=== PATIENT | male | born 1950 | race Caucasian/White ===

== ENCOUNTER 2022-09-09 10:23 | Outpatient (OUT) | payer MEDICARE, SELFPAY ==
--- NOTE | 2022-09-09 11:03 | PM.CN ---
Consult Note: HPI Data of Consult Patient: known to practice within the last 3 years Consult date: 09/09/22 Requesting Physician: FRED MEEKS NP Primary Care Provider: SAHIL TOPETE Consult Narrative Reason for consult: low back pain Narrative: He is here for f/u of low back pain and second dx MBB lumbar done 08/24/22. He had 100% relief for several hours after procedure along with increased fx. He would like to proceed with RFA of same area. Procedure discussed in detail. No other concerns. No new sensorimotor sx or new bowel or bladder issues. cc:: CC: FRED MEEKS NP Review of Systems ROS Status of ROS 10 or more systems reviewed and unremarkable except as noted in history and below Musculoskeletal Reports: back pain Exam Constitutional Documenting provider has reviewed patient's vital signs: yes Common normals: no apparent distress, oriented x3, healthy appearing, alert and well nourished General appearance: cooperative, comfortable and well developed Orientation/consciousness: Yes awake, Yes oriented to person, Yes oriented to place and Yes oriented to time HENMT Common normals: normocephalic, external nose normal and moist oral mucous membranes Respiratory Common normals: normal respiratory effort, no retractions and no use of accessory muscles Effort & inspection: able to speak in complete sentences Back & Pelvis Lumbar spine/lower back: normal to inspection, pain with ROM, paraspinal muscle tenderness, straight leg raise negative bilaterally and other soft tissue findings (facet loading positive left.) Extremity Common normals: normal to inspection, full ROM, normal capillary refill and no pedal edema Other: bilat LE muscle strength 5/5 with intact sensation. No radiculopathy Assessment and Plan Assessment and Plan (1) Lumbar spondylosis: Plan thermal RFA to left lumbar L4/5 L5/S1 under fluoroscopy. valium pre-procedure
== END 2022-09-09 10:24 ==
LOC: PM 10:24
PROVIDERS: PCP Internal Medicine; Visit Provider Nurse Practitioner
DX: M47.816 Spondylosis without myelopathy or radiculopathy, lumbar region (principal)
CPT/HCPCS: G0463

== ENCOUNTER 2022-09-28 07:44 | Day surgery (SDC) | payer MEDICARE, SELFPAY ==
--- NOTE | 2022-09-28 08:27 | P.ON_ITS ---
Date of procedure: 09/28/22 Procedure: Left Lumbar 4/5 & 5/Sacral 1 Radiofrequency ablation PreOp diagnosis: pain secondary to include lumbar spondylosis Postop diagnosis same Under fluoroscopic guidance Rhizotomy was created using radio frequency ablation at 80?C for 90 seconds 1 to 2 lesions created at each site. Post lesioning injection of 2 mL each of 0.25% Marcaine and 2% lidocaine with Depo-Medrol 40mg. 0.5 to 1 mL injected at each site Anesthesia: local 2% lidocaine Timeout process compliant After informed consent obtained.Patient brought to the procedure room placed in the prone position skin overlying the area was prepped and draped in a sterile fashion using betadine. 25 gauge needle was used to create a skin wheal over each of the targeted areas utilizing 2% lidocaine. A rhizotomy needle with a 10 mm active tip was inserted over each of the anesthetized areas and directed towards each of the medial branches accomplished under fluoroscopic guidance. after encountering the same we had positive sensory stimulation, negative motor stimulation was noted. lesions were then created. Post lesioning, steroid s olution was injected needles removed. Patient was transferred to recovery room in stable condition to be discharged home after meeting criteria. Surgeon: Hannah Rendon
[2022-09-28 08:39] VITALS: BP 125/78; PULSE 61; RESP 16; TEMP 37.1; O2SAT 98
[2022-09-28 08:44] LABS: Glucometer 177 mg/dL (74-106)
[2022-09-28 09:22] VITALS: BP 200/82; BP 208/88; PULSE 46; PULSE 57; RESP 20; O2SAT 94; O2SAT 96
[2022-09-28] MEDS: METHYLPREDNISOLONE ACETATE 40 MG/ML VIAL INJ (09:23)
[2022-09-28] MEDS: LIDOCAINE HCL 2% 400 MG/20 ML MDV 8 ML INJ (09:24)
[2022-09-28] MEDS: BUPIVACAINE HCL 0.25% PF 25 MG/10 ML VIAL 4 ML INJ (09:25)
== END 2022-09-28 09:41 | disposition home or self-care (01) ==
LOC: SURGOUT 07:47
PROVIDERS: PCP Internal Medicine; Visit Provider Anesthesiology Pain Medicine
DX: M47.816 Spondylosis without myelopathy or radiculopathy, lumbar region (principal)
CPT/HCPCS: 36415; 64635; 64636; 82948; J1030

== ENCOUNTER 2023-11-01 11:15 | Outpatient (OUT) | payer MEDICARE, SELFPAY ==
--- NOTE | 2023-11-01 | CONS_ITS ---
PROCEDURE DATE: 11/01/2023 PROCEDURE: Left erector spinae trigger point injection. PREOPERATIVE DIAGNOSIS: Pain secondary to myalgia/spasm left erector spinae muscle, as well as left sided hip pain. POSTOPERATIVE DIAGNOSIS: Pain secondary to myalgia/spasm left erector spinae muscle, as well as left sided hip pain. INDICATION: Patient had a positive left sided FABERE sign and pain with weight bearing maneuvers in the groin area. Otherwise, had a non-focal sensorimotor exam of the lower extremities. SOLUTION USED FOR INJECTION: 2 mL of 2% lidocaine, 2 mL of 0.25% Marcaine and 10 mg of Kenalog, total of 5 mL, and 5 mL used for the injection at the site. IMMEDIATE COMPLICATION: None. PROCEDURE: After informed consent was obtained from the patient, placed in the flexed forward position. Skin overlying the area was prepped with alcohol. A 25 gauge 1 ?? needle was inserted into the substance of the left erector spinae muscle, at the level of the L4 spinous process, approximately 2.5 cm from midline on the left side. Needle was advanced until there was a mild twitch response. No indication of intravascular or intraneural needle tip placement. 5 mL of solution was injected in divided doses. No indication of intravascular or intraneural injection was noted. Post procedure, the patient reports a marked reduction in pain symptoms. SHELLY
== END 2023-11-01 11:16 | disposition home or self-care (01) ==
LOC: PM 11:15
PROVIDERS: PCP Internal Medicine; Visit Provider Anesthesiology Pain Medicine
DX: M25.552 Pain in left hip (principal); M79.18 Myalgia, other site
CPT/HCPCS: 20552; J0665; J3301

== ENCOUNTER 2023-11-08 13:02 | Outpatient (OUT) | payer MEDICARE, SELFPAY ==
--- NOTE | 2023-11-08 | XR_ITS ---
The [address] [address] Patient Name: TAMMY HEADLEY MRN: [id number] date: 1950 Sex: M Assigned Patient Location: [facility] Current Patient Location: Accession/Order Number: [id number] Exam Date: 11/08/2023 13:17 Report Date: 11/09/2023 14:05 At the request of: NATALIE BAILEY Procedure: XR hip LT min 2V EXAM: Left hip HISTORY: . LEFT HIP PAIN . COMPARISON: None. TECHNIQUE: 2 views FINDINGS: There is slight narrowing of the hip joint. Hypertrophic spurs are noted involving the femoral head as well as the acetabulum. No fracture or dislocation is noted. Surrounding soft tissues are unremarkable. 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 Electronically authenticated by: TAMMY OLIVO Date: 11/09/2023 14:05
== END 2023-11-08 13:03 | disposition home or self-care (01) ==
LOC: RAD 13:06
PROVIDERS: PCP Internal Medicine; Visit Provider Anesthesiology Pain Medicine
DX: M25.552 Pain in left hip (principal)
CPT/HCPCS: 73502

== ENCOUNTER 2024-01-24 11:35 | Outpatient (OUT) | payer MEDICARE, SELFPAY ==
--- OUTSIDE RECORDS SUMMARY | 2024-01-24 11:39 | XMS_ITS | CCD ---
Author Organization [facility] Care Team Providers Care Medical Doctor Md/Medical Director Name Role Phone KOJO MEDINA Primary Care Physician [phone] Update Needed Unavailable Unavailable Unavailable Unavailable EUGENIA Medina Primary Care Provider LETICIA Husain Emergency Provider DO Yves Garcia Admit Provider [phone] DO Yves Garcia Attending Provider [phone] MD Jakub Andrews Attending Provider MD Colin Dolan Other Provider [phone] Jakub Andrews Attending Unavailable Colin Dolan Consulting Unavail able Kojo Medina Primary Care Unavailable Yves Garcia Admitting Unavailabl e Karime Caraballo Unavailable LAKSHMIPATHY ., NARENDRANATH Consulting Anabella vailable DR KOJO MEDINA Primary Care Unavailable LAKSHMIPATHY ., NARENDRANATH Attending Anabella vailable LAKSHMIPATHY ., NARENDRANATH Admitting Anabella vailable LAKSHMIPATHY ., NARENDRANATH Consulting Anabella vailable DR KOJO MEDINA Primary Care Unavailable LAKSHMIPATHY ., NARENDRANATH Attending Anabella vailable LAKSHMIPATHY ., NARENDRANATH Admitting Anabella vailable LAKSHMIPATHY ., NARENDRANATH Consulting Anabella vailable DR KOJO MEDINA Primary Care Unavailable LAKSHMIPATHY ., NARENDRANATH Attending Anabella vailable LAKSHMIPATHY ., NARENDRANATH Admitting Anabella vailable HALKER . FRED Consulting Unavailable LAKSHMIPATHY ., NARENDRANATH Consulting Anabella vailable ADAM, DR BAXTER Primary Care Unavailable LAKSHMIPATHY ., NATALIE Attending Anabella vailable LAKSHMIPATHY ., NATALIE Admitting Anabella vailable SWEENEY ., DR AGUILAR Lipscomb Consulting Unavailable ADAM, DR BAXTER Primary Care Unavailable SWEENEY ., DR AGUILAR Lipscomb Attending Unavailable SWEENEY ., DR AGUILAR Lipscomb Admitting Unavailable MEDINA, DR BAXTER Consulting Unavailable ADAM, DR BAXTER Primary Care Unavailable MEDINA, DR BAXTER Attending Unavailable MEDINA, DR BAXTER Admitting Unavailable ZIEBER, JOYA R Consulting Unavailable ZIEBER, JOYA R Consulting Unavailable MEDINA, DR BAXTER Primary Care Unavailable LAKSHMIPATHY ., NATALIE Attending Anabella vailable LAKSHMIPATHY ., NATALIE Admitting Anabella vailable LAKSHMIPATHY ., NATLAIE Consulting Anabella vailable WEST, DR TAMMY Martinez Consulting Unavailable ADAM, DR BAXTER Primary Care Unavailable LAKSHMIPATHY ., NATALIE Attending Anabella vailable LAKSHMIPATHY ., NATALIE Admitting Anabella vailable LAKSHMIPATHY ., NATALIE Consulting Anabella vailable ADAM, DR BAXTER Consulting Unavailable ADAM, DR BAXTER Primary Care Unavailable MEDINA, DR BAXTER Attending Unavailable MEDINA, DR BAXTER Admitting Unavailable MEDINA, DR BAXTER Consulting Unavailable MEDINA, DR BAXTER Primary Care Unavailable MEDINA, DR BAXTER Attending Unavailable MEDINA, DR BAXTER Admitting Unavailable CLEMENTINA, JOYA R Consulting Unavailable LAKSHMIPATHY ., NATALIE Consulting Anabella vailable ADAM, DR BAXTER Primary Care Unavailable LAKSHMIPATHY ., NATALIE Attending Anabella vailable LAKSHMIPATHY ., NATALIE Admitting Anabella vailable Kojo Medina Unavailable Adam BELLO, Dr. Kojo Dolan Primary Care Anabella vailable Colin Dolan Attending Unavailable Adam II, Dr. Kojo Dolan Primary Care Anabella vailable Colin Dolan Attending Unavailable Colin Dolan Referring Unavailable Adam II, Dr. Kojo Dolan Primary Care Anabella vailable Colin Dolan Attending Unavailable Colin Dolan Referring Unavailable Kojo Medina MD Primary Care Provider [phone] SERA PARIKH Attending Unavail able KOJO MEDINA Referring Unavailable KOJO MEDINA Primary Care Unavailable SERA PARIKH Admitting Unavail able SERA PARIKH Attending Unavail able KOJO MEDINA Primary Care Unavailable Rajeev IBRAHIM Attending Unavailable KOJO MEDINA Attending Unavailable ELIZABETH DANGELO Attending Unavailable KOJO MEDINA Referring Unavailable KOJO MEDINA Attending Unavailable KOJO MEDINA Attending Unavailable KOJO MEDINA Attending Unavailable COLIN DOLAN Attending Unavailable KOJO MEDINA Primary Care Unavailable RO CADENA Attending Unavailable COLIN DOLAN Referring Unavailable KOJO MEDINA Primary Care Unavailable Allergies Allergy Classification Reported Allergen(s) Allergy Type Date of Onset Reaction(s) Facility (4 sources) metFORMIN; Translations: [METFORMIN HCL] Drug Allergy 3 Diarrhea [facility] Work Phone: (4 sources) Animal Dander; Translations: [ANIMAL DANDER] Propensity to adverse reactions 3 Shortness of breath, Itching, Rash [facility] (1 source) Horses; Translations: [Horses] Propensity to adverse reactions (disorder) [facility] Medications Current Medications Medication Drug Class(es) Dates Sig (Normalized) Sig (Original) amLODIPine 10 mg oral tablet (10 sources) Dihydropyridine Calcium Channel Ofelia Start: 01-13-2024 End: 01-12-2025 take 1 tablet by mouth once daily amLODIPine (Norvasc) 10 mg tablet Indications: Benign essential hypertension Take 1 tablet (10 mg) by mouth once daily. 90 tablet 3 01/13/2024 01/12/2025 Active Start: 02-16-2023 End: 01-13-2024 take 1 tablet by mouth once daily amLODIPine (Norvasc) 5 mg tablet Take 1 tablet (5 mg) by mouth once daily. 02/16/2023 01/13/2024 Discontinued (Dose adjustment) Start: 03-21-2022 take 5 mg by mouth once daily Amlodipine Active 5 MG PO Daily March 21, 2022 12:00am aspirin 81 mg oral tablet (10 sources) Platelet Aggregation Inhibitor, Nonsteroidal Anti-inflammatory Drug Start: 06-13-2019 End: 01-13-2024 aspirin 81 mg capsule Take by mouth once daily. 06/13/2019 01/13/2024 Discontinued (Therapy completed) Aspirin EC 81 MG TBEC TAKE 1 TABLET DAILY. Quantity: 0 Refills: 0 Ordered: 08-Sep-2022 DO Active Baby Aspirin Act ghanshyam atorvastatin 40 mg oral tablet (12 sources) HMG-CoA Reductase Inhibitor Start: 03-21-2022 End: 03-24-2023 take 40 mg by mouth once daily Atorvastatin Active 40 MG PO Daily March 21, 2022 12:00am Start: 06-13-2019 atorvastatin O ral, Daily, Refills(s) 0 Start Date: 06/13/19 Status: Ordered baclofen 10 mg oral tablet (2 sources) gamma-Aminobutyric Acid-ergic Agonist take 1 tablet by mouth every twelve hours Baclofen 10 MG 1 tablet as needed Orally Twice a day Active carvedilol 6.25 mg oral tablet (12 sources) alpha-Adrenergic Ofelia, beta-Adrenergic Ofelia Start: 01-13-20 24 End: 01-13-20 25 take 1 tablet by mouth twice daily carvedilol (Coreg) 6.25 mg tablet Indications: Benign essential hypertension Take 1 tablet (6.25 mg) by mouth 2 times daily (morning and late afternoon). 01/13/2024 01/12/2025 Active Start: 10-10-2023 End: 01-13-2024 take 2 tablets by mouth twice daily carvedilol (Coreg) 6.25 mg tablet Indications: Bradycardia Take 2 tablets (12.5 mg) by mouth 2 times daily (morning and late afternoon). 360 tablet 3 10/10/2023 01/13/2024 Discontinued (Dose adjustment) Start: 03-21-2022 take 12.5 mg by mout h twice daily Carvedilol Active 12.5 MG PO Twice daily March 21, 2022 12:00am Start: 06-13-2019 carvedilol Ora l, Refills(s) 0 Start Date: 06/13/19 Status: Ordered Start: 02-08-2017 take 1 tablet by yenni th twice daily at mealtime carvedilol (Coreg) 25 mg tablet Take 1 tablet (25 mg) by mouth 2 times a day with meals. 0 02/08/2017 Active cholecalciferol 0.025 mg oral capsule (2 sources) Vitamin D take 1 capsule by mouth once daily cholecalciferol (Vitamin D3) 25 MCG (1000 UT) capsule Take 1 capsule (25 mcg) by mouth once daily. Active cyclobenzaprine hydrochloride 10 mg oral tablet (2 sources) Muscle Relaxant Start: 2022 End: 2023 take 1 tablet by mouth every eight hours as needed cyclobenzaprine (Flexeril) 10 mg tablet Take 1 tablet (10 mg) by mouth every 8 hours if needed for muscle spasms. 01/20/2023 01/13/2024 Discontinued (Therapy completed) doxycycline monohydrate 100 mg oral capsule (2 sources) Tetracycline-class Drug Start: 2020 take 1 capsule by mouth every twelve hours 0.85 ml exenatide 2.35 mg/ml auto-injector (1 source) GLP-1 Receptor Agonist Start: 2023 Bydureon BCise 2 mg/0.85 mL auto-injector Inject 1 Syringe under the skin every 7 days. 11/14/2023 Active hydroCHLOROthiazide 25 mg / triamterene 37.5 mg oral tablet (9 sources) Potassium-sparing Diuretic, Thiazide Diuretic Start: 2021 take 1 tablet by mouth once daily Triamterene-Hydrochlo rothiazid Active 1 TAB PO Daily March 21, 2022 12:00am ibuprofen 200 mg oral tablet (2 sources) Nonsteroidal Anti-inflammatory Drug take 2 tablets by mouth every six hours as needed ibuprofen 200 mg tablet Take 2 tablets (400 mg) by mouth every 6 hours if needed for mild pain (1 - 3). Active take 1 tablet by yenni th every six hours as needed ibuprofen 200 mg tablet Take 1 tablet (2 00 mg) by mouth every 6 hours if needed for mild pain (1 - 3). 0 Active 3 ml insulin aspart protamine, human 70 unt/ml / insulin aspart, human 30 unt/ml pen injector (1 source) Insulin Analog Start: 03-21-2022 Insulin Asp Pr t-Insulin Aspart (Novolog Mix 70-30flexpen U-100) 100 unit/mL (70-30) Insulin Pen Active 65 UNIT SUBCUT Twice daily March 21, 2022 12:00am NovoLog (3 sources) Insulin Analog Start: 06-13-2019 NovoLog SubCut aneous, TIDAC, Refills(s) 0 Start Date: 06/13/19 Status: Ordered insulin isophane, human 70 unt/ml / insulin, regular, human 30 unt/ml injectable suspension (7 sources) Insulin insulin NPH and regular human (NovoLIN 70/30 U-100 Insulin) 100 unit/mL (70-30) injection Inject 65 Units under the skin 2 times a day before meals. Active NovoLIN 70/30 (7 0-30) 100 UNIT/ML as directed Subcutaneous Active 3 ml liraglutide 6 mg/ml pen injector (10 sources) GLP-1 Receptor Agonist Start: 03-21-2022 Liraglutide (Victoza 2-Jules) 0.6 mg/0.1 mL (18 mg/3 mL) pen injector Active 12 MG SUBCUT Daily March 21, 2022 12:00am Start: 06-13-2019 inject 1 mg by subcu taneous injection once daily Victoza mg, SubCutaneous, Daily, Refills(s) 0 Start Date: 06/13/19 Status: Ordered inject 1.8 mg by sub cutaneous injection once daily Victoza 18 MG/3ML Subcutaneous Solution INJECT 1.8 MG SUBCUTANEOUSLY EVERY DAY Quantity: 0 Refills: 0 Ordered: 17-Mar-2022 DO Active lisinopril 40 mg oral tablet (8 sources) Angiotensin Converting Enzyme Inhibitor Start: 03-21-2022 take 40 mg by mouth once daily Lisinopril Active 40 MG PO Daily March 21, 2022 12:00am Start: 06-13-2019 lisinopril Ora l, Daily, Refills(s) 0 Start Date: 06/13/19 Status: Ordered metFORMIN hydrochloride 1000 mg oral tablet (7 sources) Biguanide Start: 03-21-2022 take 1000 mg by mouth twice daily Metformin Active 1000 MG PO Twice daily March 21, 2022 12:00am Start: 06-13-2019 metformin Oral , Refills(s) 0 Start Date: 06/13/19 Status: Ordered take 1 tablet by yenni th every twenty-four hours metFORMIN HCl 1000 MG 1 tablet with a meal Orally Once a day Active Multiple Vitamins Tab (3 sources) Start: 06-13-2019 take 1 tablet by mouth once daily Multiple Vitamins Tab Oral, Daily, Refill(s) 0 Start Date: 06/13/19 Status: Ordered multivitamin tablet (2 sources) take 1 tablet by mouth once daily multivitamin tablet Take 1 tablet by mouth once daily. Active take 1 tablet by mouth once renay y multivitamin tablet Take 1 tablet by mouth once daily. 0 Active mupirocin 0.02 mg/mg topical ointment (2 sources) RNA Synthetase Inhibitor Antibacterial Start: 07-28-2020 Ozempic 1 mg/dose (4 mg/3 mL) pen injector (2 sources) Start: 03-10-2023 End: 01-13-2024 inject 1 mg by subcutaneous injection every week Ozempic 1 mg/dose (4 mg/3 mL) pen injector Inject 1 mg under the skin 1 (one) time per week. Tuesday03/10/2023 01/13/2024 Discontinued (Therapy completed) Start: 03-10-2023 inject 1 mg by subcu taneous injection every week Ozempic 1 mg/dose (4 mg/3 mL) pen injector Inject 1 mg under the skin 1 (one) time per week. Tuesday03/10/2023 Active spironolactone 25 mg oral tablet (9 sources) Aldosterone Antagonist Start: 11-14-2023 take 1 tablet by mouth once daily spironolactone (Aldactone) 25 mg tablet Indications: Benign essential hypertension Take 1 tablet by mouth once daily 90 tablet 3 11/14/2023 Active Start: 03-05-2023 take 1 tablet by yenni th once daily spironolactone (Aldactone) 25 mg tablet Take 1 tablet (25 mg) by mouth once daily. 0 03/05/2023 Active Start: 03-17-2022 take 1 tablet by yenni th once daily Spironolactone 25 MG Oral Tablet TAKE 1 TABLET DAILY. Quantity: 90 Refills: 3 Ordered: 08-Sep-2022 Colin Dolan MD Start : 17-Mar-2022 Active traMADol hydrochloride 50 mg oral tablet (1 source) Opioid Agonist Start: 03-22-2023 End: 03-25-2023 take 1 tablet by mouth every eight hours for pain traMADol (Ultram) 50 mg tablet Indications: Carpal tunnel syndrome, right upper limb Take 1 tablet (50 mg) by mouth every 8 hours if needed for severe pain (7 - 10) for up to 3 days. 5 tablet 0 03/22/2023 03/25/2023 Active zonisamide 100 mg oral capsule (2 sources) Anti-epileptic Agent take 1 capsule by mouth every twenty-four hours Zonisamide 100 MG 1 capsule Orally Once a day Active Problems Active Problems Problem Classification Problem Date Documented Date Episodic/Chronic Cardiac dysrhythmias (1 source) AV junctional rhythm; Translations: [Other specified cardiac arrhythmias] Onset: 01-13-2024 01-13-2024 Chronic Cardiac dysrhythmias (4 sources) Bradycardia, unspecified; Translations: [Sinus bradycardia] Onset: 01-13-2024 Episodic Diabetes mellitus without complication (11 sources) Diabetes mellitus; Translations: [Diabetes mellitus without mention of complication, type II or unspecified type, not stated as uncontrolled] Onset: 03-21-2022 06-13-2019 Chronic Disorders of lipid metabolism (7 sources) Hyperlipidemia; Translations: [Other and unspecified hyperlipidemia] Onset: 06-10-2023 Chronic Essential hypertension (15 sources) Hypertensive disorder; Translations: [Benign essential hypertension] Onset: 06-25-2008 06-13-2019 Chronic Genitourinary symptoms and ill-defined conditions (3 sources) Microscopic hematuria 06-13-2019 Episodic Hyperplasia of prostate (4 sources) Benign prostatic hypertrophy with outflow obstruction; Translations: [Benign prostatic hyperplasia with lower urinary tract symptoms] Onset: 07-10-2021 Chronic Nonspecific chest pain (5 sources) Atypical chest pain; Translations: [Other chest pain] Onset: 03-21-2022 03-21-2022 Episodic Osteoarthritis (3 sources) Arthritis 06-13-2019 Chronic Other aftercare (1 source) retirement (current) use of insulin; 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] Onset: 07-22-2022 Episodic Other connective tissue disease (1 source) Disorder of ligament, vertebrae Episodic Other connective tissue disease (1 source) Other muscle spasm; Translations: [OTHER MUSCLE SPASM] Onset: 07-17-2022 Episodic Other nervous system disorders (1 source) Other chronic pain; Translations: [OTHER CHRONIC PAIN] Onset: 06-21-2022 Chronic Other nervous system disorders (5 sources) Carpal tunnel syndrome of right wrist; Translations: [Carpal tunnel syndrome, right upper limb] Onset: 03-21-2023 03-21-2023 Chronic Other nervous system disorders (2 sources) Carpal tunnel syndrome, right upper limb; Translations: [Carpal tunnel syndrome, right upper limb] Onset: 03-21-2023 Chronic Other non-traumatic joint disorders (4 sources) Pain in left hip; Translations: [PAIN IN LEFT HIP] Onset: 07-08-2022 Episodic Other nutritional; endocrine; and metabolic disorders (6 sources) Body mass index 40+ - severely obese; Translations: [Morbid obesity] Onset: 01-13-2024 01-13-2024 Chronic Other nutritional; endocrine; and metabolic disorders (3 sources) Body mass index (BMI) 45.0-49.9, adult; Translations: [Body mass index (BMI) 45.0-49.9, adult (Multi)] Onset: 01-13-2024 Chronic Other nutritional; endocrine; and metabolic disorders (1 source) Obesity, unspecified; Translations: [OBESITY UNSPECIFIED] Onset: 05-08-2022 Chronic Residual codes; unclassified (3 sources) H/O: anticoagulant therapy 06-13-2019 Episodic Residual codes; unclassified (3 sources) History of chest pain; Translations: [Personal history of other specified diseases] Episodic Residual codes; unclassified (3 sources) H/O: respiratory disease; Translations: [Personal history of other diseases of respiratory system] Episodic Residual codes; unclassified (1 source) Other specified postprocedural states Episodic Screening and history of mental health and substance abuse codes (8 sources) Ex-smoker; Translations: [Personal history of tobacco use] Onset: 01-13-2024 Episodic Comment on above: quit smoking 20+year s ago; Spondylosis; intervertebral disc disorders; other back problems (13 sources) Degeneration of lumbar intervertebral disc; Translations: [Other intervertebral disc degeneration, lumbar region] Onset: 05-08-2022 Chronic Spondylosis; intervertebral disc disorders; other back problems (6 sources) Radiculopathy, lumbar region; Translations: [Spinal stenosis, lumbar region without neurogenic claudication] Onset: 07-02-2022 Episodic Unclassified (3 sources) LOW BACK PAIN, UNSPECIFIED; Translations: [LOW BACK PAIN, UNSPECIFIED] Onset: 05-08-2022 Unclassified (3 sources) COUGH, UNSPECIFIED; Translations: [COUGH, UNSPECIFIED] Onset: 10-21-2021 Past or Other Problems Problem Classification Problem Date Documented Da te Episodic/Chronic Unclassified (1 source) LOW BACK PAIN, UNSPECIFIED; Translations: [LOW BACK PAIN, UNSPECIFIED] Onset: 05-04-2022 Unclassified (1 source) COUGH, UNSPECIFIED; Translations: [COUGH, UNSPECIFIED] Onset: 10-19-2021 Unclassified (1 source) Onset: 10-10-2023 10-10-2023 Results Test Name Value Interpretation Reference Range Facility ECG 12 [place] 01-13-2024 Junctional rhythm wi th retrograde [facility] Work Phone: Physician Orderon 07-26-2023 Physician Order [id number] Normal [facility] Office Visit (Cardiology)on 09-08-2022 Follow-up visit Diagnoses/Problems Assessed Hyperlipidemia (272.4) (E78.5) Morbid obesity with BMI of 45.0-49.9, adult (278.01,V85.42) (E66.01,Z68.42) Diabetes mellitus (250.00) (E11.9) Benign essential hypertension (401.1) (I10) Former smoker (V15.82) (Z87.891) quit smoking 20+years ago Orders Benign essential hypertension Renew: Spironolactone 25 MG Oral Tablet; TAKE 1 TABLET DAILY Hyperlipidemia Renew: Atorvastatin Calcium 40 MG Oral Tablet (Lipitor); TAKE 1 TABLET AT BEDTIME Morbid obesity with BMI of 45.0-49.9, adult Healthy Weight Tips; Status:Complete - Retrospective Authorization; Done: 08Sep2022 Some eating tips that can help you lose weight.; Status:Complete - Retrospective Authorization; Done: 08Sep2022 SocHx: Former smoker Tobacco Use Screening; Status:Complete; Done: 08Sep2022 Patient Instructions Please bring all medicines, vitamins, and herbal supplements with you when you come to the office. Prescriptions will not be filled unless you are compliant with your follow up appointments or have a follow up appointment scheduled as per instruction of your physician. Refills should be requested at the time of your visit. . Follow up in 1 year. Chief Complaint TAMMY WU is being seen for a 6 month follow-up of. History of Present Illness Patient returns in follow-up of problems as noted. He is done well. Management of cardiac risk factors including his hypertension diabetes and hyperlipidemia are discussed and reviewed and control appears adequate and appropriate. I did advocate the merits of diet and weight loss and its favorable impact on diabetes and hypertension. Surgical History Problems History of Achilles tenotomy History of Colonoscopy 04Apr2017 History of Hip replacement History of Knee replacement History of Lower back surgery History of Rotator cuff repair Past Medical History Problems History of chest pain (V13.89) (Z87.898) History of dyspnea (V12.69) (Z87.898) Current Meds Medication NameInstruction amLODIPine Besylate 5 MG Oral TabletTake 1 tablet daily Aspirin EC 81 MG TBECTAKE 1 TABLET DAILY. Atorvastatin Calcium 40 MG Oral TabletTAKE 1 TABLET AT BEDTIME. Carvedilol 25 MG Oral TabletTAKE 1 TABLET TWICE DAILY. NovoLIN 70/30 PenFill (70-30) 100 UNIT/ML SUSPUSE DIRECTED. Spironolactone 25 MG Oral TabletTAKE 1 TABLET DAILY. Triamterene-HCTZ 37.5-25 MG Oral TabletTAKE 1 TABLET DAILY. Victoza 18 MG/3ML Subcutaneous SolutionINJECT 1.8 MG SUBCUTANEOUSLY EVERY DAY Allergies Medication No Known Drug Allergies Recorded By: Sharee De Leon; 04/10/2021 3:40:56 PM Social History Problems Consumes alcohol occasionally (V49.89) (Z78.9) 2-3 drinks a month Daily caffeine consumption, 1 serving a day Former smoker (V15.82) (Z87.891) quit smoking 20+years ago No illicit drug use Review of Systems Constitutional: not feeling tired. Eyes: no eyesight problems. ENT: no hearing loss and no nosebleeds. Cardiovascular: no intermittent leg claudication and as noted in HPI. Respiratory: no chronic cough and no shortness of breath. Gastrointestinal: no change in bowel habits and no blood in stools. Genitourinary: no urinary frequency and no hematuria. Skin: no skin rashes. Neurological: no seizures and no frequent falls. Psychiatric: no depression and not suicidal. All other systems have been reviewed and are negative for complaint. Vitals Vital Signs Recorded: 08Sep2022 10:06AM Heart Rate40, R Radial [id number], RUE, Sitting Spccinjfr25, RUE, Sitting Height5 ft 7 in Dprgjm487 lb BMI Sunfchsidb85.52 kg/m2 BSA Calculated2.39 Tobacco Useb) No PHQ-2 #1. Over the last 2 weeks have you felt down, depressed or hopeless? (If yes, answer PHQ-9 below)No PHQ-2 #2. Over the last 2 weeks have you felt little interest or pleasure in doing things? (If yes, answer PHQ-9 below)No Falls Screening (Age 18+)a) No falls within the last year Physical Exam Constitutional: alert and in no acute distress. Eyes: no erythema, swelling or discharge from the eye . Neck: neck is supple, symmetric, trachea midline, no masses and no thyromegaly . Pulmonary: no increased work of breathing or signs of respiratory distress and lungs clear to auscultation. Cardiovascular: carotid pulses 2+ bilaterally with no bruit , JVP was normal, no thrills , regular rhythm, normal S1 and S2, no murmurs , pedal pulses 2+ bilaterally and no edema . Abdomen: abdomen non-tender, no masses and no hepatomegaly . Skin: skin warm and dry, normal skin turgor . Psychiatric judgment and insight is normal and oriented to person, place and time . Signatures Electronically signed by : Colin Dolan MD; Sep 08 2022 5:13PM EST (Author) Normal [employer] Tobacco Screening.on 023 Adult depression screening assessment No [facility] [place] [place] 600 DO Work Phone: Fall risk assessment a) No falls within the last year [facility] lk 600 DO Work Phone: Tobacco use status [facility] b) No [facility] 600 DO Work Phone: PROF CHEM 8 (BAS METB)on Anion gap [Moles/Vol] 19.1 mmol/L Normal [facility] Comment on above: Performed By: #### B MP #### [facility] [address] [place] [id number] Rubens Rodriguez Calcium [Mass/Vol] 9.6 mg/dL Normal 8.5-10.1 [facility] Comment on above: Performed By: #### B MP #### [facility] [address] [place], [place] [address] Dr. Rubens Rodriguez Chloride [Moles/Vol] 111 mmol/L Critically high 98-107 [facility] Comment on above: Performed By: #### B MP #### [facility] [address] [place] [address] [address] Rubens Rodriguez CO2 [Moles/Vol] 16.6 mmol/L Critically low 21.0-32.0 [facility] Comment on above: Performed By: #### B MP #### [facility] [address] [address] [address] Rubens Rodriguez Creatinine [Mass/Vol] 1.32 mg/dL Critically high 0.70-1.30 [facility] Comment on above: Performed By: #### B MP #### [facility] [address] [place] [address] Dr. Rubens Rodriguez EGFR-AF MONTSERRATIAN >60 Normal >=60 [facility] Comment on above: Performed By: #### B MP #### [facility] [address] [place] [address] Dr. Rubens Rodriguez EGFR-NON AF MONTSERRATIAN 53 mL/min/1.73m2 Critically low >=60 [facility] Comment on above: Performed By: #### B MP #### [facility] [address] [address] [address] Rubens Rodriguez Glucose [Mass/Vol] 139 mg/dL Critically high 74-106 T [facility] Comment on above: Performed By: #### B MP #### [facility] [address] [address] [address] Rubens Rodriguez Potassium [Moles/Vol] 6.5 mmol/L Critically high 3.5-5.1 [facility] Comment on above: Performed By: #### B MP #### [facility] [address] [address] [address] Rubens Rodriguez Sodium [Moles/Vol] 135 mmol/L Critically low 136-145 Th [facility] Comment on above: Performed By: #### B MP #### [facility] [address] [address] [address] Rubens Rodriguez Urea nitrogen [Mass/Vol] 52.0 mg/dL Critically high 7.0-18.0 [facility] Comment on above: Performed By: #### B MP #### [facility] [address] [address] [address] Rubens Rodriguez Urea nitrogen/Creatinine [Mass ratio] 39.4 mg/mg Normal [facility] Comment on above: Performed By: #### B MP #### [facility] [address] [address] [address] Rubens Rodriguez POINT OF CARE GLUCOSEon - Glucose [Mass/Vol] 201 mg/dL Critically high 74-106 T [facility] Comment on above: Performed By: #### P OCGLUC #### [facility] [address] [place] [address] Dr. Rubens Rodriguez MRI LSPINE WO W CONon 2022 MRI LSPINE WO W CON EXAMINATION: MRI LSP INE WO W CON HISTORY: Lumbar radiculopathy COMPARISON: No relevant comparison available. TECHNIQUE: Axial T1 and T2; Sagittal T1, T2, and STIR sequences. Images were performed before and after the administration of intravenous Dotarem contrast. FINDINGS: For the purposes of numbering, sagittal T2 image # 8 extends from the T11 vertebral body superiorly to the S3 level inferiorly. PARASPINAL AREA: Normal with no visible mass. BONES: Normal alignment with no acute fracture or spondylolisthesis. Heterogeneous marrow, age-related change. Moderate to severe diffuse degenerative spondylosis. Moderate diffuse facet osteoarthropathy. Mixed signal identified lower endplate of L2 upper endplate of L3, Modic 2 and 3 changes CORD/CAUDA EQUINA: Normal caliber, contour, and signal intensity. No abnormal postcontrast enhancement DISC LEVELS: 12-L1: Disc collapse. Moderate diffuse disc/osteophyte complex. Moderate ligamentum flavum hypertrophy. No central canal stenosis. Mild bilateral foraminal stenosis right greater than left L1-L2: Moderate to severe disc space narrowing and disc desiccation. No significant disc bulge or herniation. No central or foraminal stenosis L2-L3: Moderate to severe disc space narrowing left greater than right with extensive endplate sclerosis. Moderate diffuse disc/osteophyte complex with left foraminal disc herniation the perfusion type. Severe facet osteoarthropathy. Mild trefoil narrowing the central canal. No right foraminal stenosis. Severe left foraminal stenosis. L3-L4: Moderate to severe disc space narrowing and endplate sclerosis. Moderate diffuse disc/osteophyte complex and facet osteoarthropathy. No central canal stenosis. Severe narrowing of the right neural foramen. No left foraminal stenosis. L4-L5: Moderate disc space narrowing and disc desiccation, right greater than left with endplate sclerosis. Mild diffuse disc/osteophyte complex. No central or left foraminal stenosis. Mild to moderate right foraminal stenosis L5-S1: Posterior broad-based disc protrusion. No central or foraminal stenosis IMPRESSION: Moderate to severe diffuse degenerative changes with foraminal stenosis at multiple levels as detailed above Electronically authenticated by: TAMMY DANIELLE Date: 2022-07-02 13:42 Normal [facility] XR LSPINE W_OBLS AND FLEX_EX Ton 06-15-2022 XR LSPINE W_OBLS AND FLEX_EXT EXAMINATION: XR LSPINE W_OBLS AND FLEX_EXT HISTORY: Lumbar radiculitis ; acute back pain and leg weakness COMPARISON: XR L-spine 04/30/2022 FINDINGS: BONES: Moderate right convex curvature lumbar spine. Multilevel moderate marked degenerative facet arthropathy. No fracture or spondylolisthesis. Multilevel degenerative endplate changes. DISC SPACES: Moderate marked narrowing L2-L3 through L5-S1. PARASPINOUS: Marked atherosclerotic disease of aorta; no visible aneurysm. OTHER: Negative. IMPRESSION: 1. Multilevel marked degenerative changes of lumbar spine; no appreciable acute abnormality or change compared to prior study. Electronically authenticated by: JOYA MCRAE Date: 2022-06-15 16:45 Normal [facility] XR LSPINE MIN 4 VIEWSon 04-05 XR LSPINE MIN 4 VIEWS EXAMINATION: XR LS PINE MIN 4 VIEWS HISTORY: Lumbosacral spondylosis without myelopathy ; chronic low back pain increasing in severity, left leg pain COMPARISON: XR L-spine 01/05/2021 FINDINGS: BONES: Moderate right convex curvature of lumbar spine. No appreciable fracture spondylolisthesis. Mild straightening of normal lumbar lordotic curvature. Multilevel moderate degenerative facet arthropathy. DISC SPACES: Moderate marked narrowing at all lumbar levels. PARASPINOUS: Atherosclerotic disease of aorta without visible aneurysm. OTHER: Prior right hip replacement. IMPRESSION: 1. Marked degenerative changes of lumbar spine; no appreciable acute bone abnormality. Suspect progression of degenerative disc disease. Electronically authenticated by: JOYA LOUISEMAY Date: 2022-04-30 14:23 Normal [facility] A1C with Estimated Average Liz lackey 03-22-2022 Glucose [Mass/Vol] 154 mg/dL Normal [facility] Comment on above: Result Comment: PERF ORMED BY: [facility] [address] [place] [address] PATHOLOGIST CLIENT SERVICES ANALYST YAMILET BACK M.D. Performed By: #### C K, CKMB, HS TROP #### [facility] [address] HbA1c (Bld) [Mass fraction] 7.0 % High 4.3-5.6 [facility] Comment on above: Result Comment: Incr eased risk for diabetes: 5.7 - 6.4 diabetes: >6.4 glycemic control for adults with diabetes: <7.0 Performed By: #### C K, CKMB, HS TROP #### [facility] [address] [id number] [facility] Cholesterol [Mass/volume] in Serum or PlasmaOrdered By: Yves Garcia on 03-22-2022 Cholesterol [Mass/Vol] 125 mg/dL 140-200 [facility] Comment on above: Chol less than 200 m g/dl low riskChol 201-239 mg/dl borderline riskChol 240 mg/dl and greater high risk Cholesterol in LDL Calc [Mas s/Vol]Ordered By: Yves Garcia on 03-22-2022 Cholesterol in LDL [Mass/Vol] 59 mg/dL 0-100 [facility] Comment on above: LDL ATP III CLASSIFI CATIONLDL less than 100 mg/dL OptimalLDL 100-129 mg/dL Near or above optimalLDL 130-159 mg/dL Borderline highLDL 160-189 mg/dL HighLDL greater than 189 mg/dL Very high Cholesterol in VLDL Calc [Ma ss/Vol]Ordered By: Yves Garcia on 03-22-2022 Cholesterol in VLDL [Mass/Vol] 31 mg/dL [facility] Creatine Kinaseon 03-22-2022 CK [Catalytic activity/Vol] 96 U/L Normal [facility] Comment on above: Performed By: #### C K, CKMB, HS TROP #### [address] CK [Catalytic activity/Vol] 103 U/L Normal [facility] Comment on above: Performed By: #### C K, CKMB, HS TROP #### [place] [address] [place] Creatine kinase [Enzymatic a ctivity/volume] in Serum or PlasmaOrdered By: Yves Garcia on 03-22-2022 CK [Catalytic activity/Vol] 96 U/L [facility] Creatinine Kinase MBon 03-22 CK.MB [Mass/Vol] 1.7 ng/mL Normal 0.6-6.3 [facility] Comment on above: Performed By: #### C K, CKMB, HS TROP #### [address] CKMB Relative Index 1.7 % Normal 0.00-2.50 [facility] Comment on above: Performed By: #### C K, CKMB, HS TROP #### [address] CK.MB [Mass/Vol] 2.1 ng/mL Normal 0.6-6.3 [facility] Comment on above: Performed By: #### C K, CKMB, HS TROP #### [address] CKMB Relative Index 2.0 % Normal 0.00-2.50 [facility] Comment on above: Performed By: #### C K, CKMB, HS TROP #### [place] [address] [place] ECG 12 lead ECGon 03-22-2022 ECG 12 lead ECG [facility] [place] [address] [place] [address] Electrocardiograph Report Signed Patient: Tammy Wu MR#: [id number] 94 : 1950 Acct:[id number] Age/Sex: 72 / M ADM Date: 03/21/22 Loc: Room: [address] [place] [address] Type: DIS INOo Attending Dr: Jakub Andrews MD Ordering Provider: Yves Garcia DO Date of Service: 03/22/22 ECG/ECG 12 lead ECG: chest pain Copies to: Test Reason : Blood Pressure : / mmHG Vent. Rate : 070 BPM Atrial Rate : 070 BPM P-R Int : 282 ms QRS Dur : 082 ms QT Int : 386 ms P-R-T Axes : 053 014 064 degrees QTc Int : 416 ms Sinus rhythm with 1st degree AV block with occasional premature ventricular complexes and premature atrial complexes Otherwise normal ECG Confirmed by MERCEDES HILLIARD DO ([id number]) on 03/24/2022 7:06:45 PM Referred By: Electronically Signed By:MERCEDES HILLIARD DO Transcribed By: MUS Signed By Mercedes Hilliard DO 03/[address] [facility] Glucose Glucometer (BldC) [M ass/Vol]Ordered By: Jakub Andrews on 03-22-2022 Glucose [Mass/Vol] 159 mg/dL [facility] Comment on above: Random Glucose Refer ence Range is dependent on time and content of last meal. Glucose of more than 200 mg/dL in a nonstressed, ambulatory subject supports the diagnosis of Diabetes Mellitus. Glucose Poct Glucometerson 1 05-23-2021 Commemt1 Glu2: Cleaned Meter [facility] Comment on above: Result Comment: PERF ORMED BY: [place] [address] PATHOLOGIST CLIENT SERVICES ANALYST YAMILET BACK M.D. Performed By: #### C K, CKMB, HS TROP #### [address] Glucose [Mass/Vol] 159 mg/dL [facility] Comment on above: Result Comment: [place] om Glucose Reference Range is dependent on time and content of last meal. Glucose of more than 200 mg/dL in a nonstressed, ambulatory subject supports the diagnosis of Diabetes Mellitus. Performed By: #### C K, CKMB, HS TROP #### [address] Commemt1 Glu2: Cleaned Meter Normal [facility] Comment on above: Result Comment: PERF ORMED BY: [place] [address] PATHOLOGIST CLIENT SERVICES ANALYST YAMILET BACK M.D. Performed By: #### C K, CKMB, HS TROP #### [address] Glucose [Mass/Vol] 154 mg/dL Normal [facility] Comment on above: Result Comment: [place] om Glucose Reference Range is dependent on time and content of last meal. Glucose of more than 200 mg/dL in a nonstressed, ambulatory subject supports the diagnosis of Diabetes Mellitus. Performed By: #### Ralph Mak, CKSTEFFANY, HS TROP #### [address] Glucose [Mass/Vol] 137 mg/dL Normal [facility] Comment on above: Result Comment: [place] om Glucose Reference Range is dependent on time and content of last meal. Glucose of more than 200 mg/dL in a nonstressed, ambulatory subject supports the diagnosis of Diabetes Mellitus. PERFORMED BY: [place] [address] PATHOLOGIST CLIENT SERVICES ANALYST YAMILET BACK M.D. Performed By: #### Ralph Mak, CKSTEFFANY, HS TROP #### [address] Glucose mean value [Mass/vol ume] in Blood Estimated from glycated hemoglobinOrdered By: Yves Garcia on 03-22-2022 Average glucose Estimated from glycated hemoglobin (Bld) [Mass/Vol] 154 mg/dL [facility] Hemoglobin A1c percentageOrd ered By: Yves Garcia on 03-22-2022 HbA1c (Bld) [Mass fraction] 7.0 % 4.3-5.6 [facility] Comment on above: Increased risk for d iabetes: 5.7 - 6.4diabetes: >6.4glycemic control for adults with diabetes: <7.0 Lipid Panelon 03-22-2022 Cholesterol [Mass/Vol] 125 mg/dL Low 140-200 [facility] Comment on above: Result Comment: Chol less than 200 mg/dl low risk Chol 201-239 mg/dl borderline risk Chol 240 mg/dl and greater high risk Performed By: #### C K, CKMB, HS TROP #### [facility] [address] Cholesterol in HDL [Mass/Vol] 34 mg/dL Normal 29-71 [facility] Comment on above: Result Comment: HDL CHOL ATP-III CLASSIFICATION Cardiovascular Risk HDL > or equal to 60 mg/dL LOW HDL < 40 mg/dL HIGH Performed By: #### C K, CKMB, HS TROP #### [facility] [address] Cholesterol.total/Chol esterol in HDL [Mass ratio] 3.7 {ratio} Normal <5.0 [facility] Comment on above: Result Comment: PERF ORMED BY: [place] [address] PATHOLOGIST CLIENT SERVICES ANALYST YAMILET BACK M.D. Performed By: #### C K, CKMB, HS TROP #### [facility] [address] LDL Cholesterol,Calculated 59 mg/dL Normal 0-100 [facility] Comment on above: Result Comment: LDL ATP III CLASSIFICATION LDL less than 100 mg/dL Optimal LDL 100-129 mg/dL Near or above optimal LDL 130-159 mg/dL Borderline high LDL 160-189 mg/dL High LDL greater than 189 mg/dL Very high Performed By: #### C K, CKMB, HS TROP #### [facility] [address] [place] [address] [place] Triglyceride w/Reflex 158 mg/dL High 35-149 [facility] Comment on above: Result Comment: TRIG ATP III CLASSIFICATION TRIG less than 150 mg/dL Normal TRIG 150-199 mg/dL Borderline high TRIG 200-500 mg/dL High TRIG greater than 500 mg/dL Very high Standard traceable to the Center for Disease Conrtrol and Prevention (CDC) test method. Performed By: #### C K, CKMB, HS TROP #### [facility] [address] [place] [address] [place] VLDL CHOLESTEROL 31 mg/dL Normal [facility] Comment on above: Performed By: #### C K, CKMB, HS TROP #### [facility] [address] No Panel InformationOrdered By: Jakub Andrews on 03-22-2022 Bedside Glucose Comment Glu2: cleaned meter [facility] Serum or plasma creatine kin ase MB (CKMB)/total creatine kinase (CK) ratio by calculaOrdered By: Yves Garcia on 03-22-2022 CK.MB Calc [Catalytic fraction] 1.7 % 0.00-2.50 [facility] Serum or plasma creatine kin ase MB measurement (mass/volume)Ordered By: Yves Garcia on 03-22-2022 CK.MB [Mass/Vol] 1.7 ng/mL 0.6-6.3 [facility] Serum or plasma high density lipoprotein (HDL) cholesterol measurementOrdered By: Yves Garcia on 03-22-2022 Cholesterol in HDL [Mass/Vol] 34 mg/dL 29-71 [facility] Comment on above: HDL CHOL ATP-III CLA SSIFICATION Cardiovascular RiskHDL > or equal to 60 mg/dL LOWHDL < 40 mg/dL HIGH Serum or plasma total choles terol/high density lipoprotein (HDL) cholesterol mass ratOrdered By: Yves Garcia on 03-22-2022 Cholesterol.total/Chol esterol in HDL [Mass ratio] 3.7 {ratio} <5.0 [facility] Triglyceride [Mass/volume] i n Serum or PlasmaOrdered By: Yves Garcia on 03-22-2022 Triglyceride [Mass/Vol] 158 mg/dL 35-149 [facility] Comment on above: TRIG ATP III CLASSIF ICATIONTRIG less than 150 mg/dL NormalTRIG 150-199 mg/dL Borderline highTRIG 200-500 mg/dL High TRIG greater than 500 mg/dL Very highStandard traceable to the Center for Disease Conrtrol and Prevention (CDC) test method. Troponin I High Sensitivityo n 03-22-2022 Troponin I High Sensitivity 18 pg/mL Normal 0-20 [facility] Comment on above: Result Comment: PERF ORMED BY: [place] [address] PATHOLOGIST CLIENT SERVICES ANALYST YAMILET BACK M.D. Performed By: #### C K, CKMB, HS TROP #### [facility] [address] [place] [address] Troponin I High Sensitivity 19 pg/mL Normal 0-20 [facility] Comment on above: Result Comment: PERF ORMED BY: [place] [address] PATHOLOGIST CLIENT SERVICES ANALYST YAMILET BACK M.D. Performed By: #### C K, CKMB, HS TROP #### [facility] [address] [place] [address] Troponin I.cardiac [Mass/vol ume] in Serum or Plasma by High sensitivity methodOrdered By: Yves Garcia on 03-22-2022 Troponin I.cardiac High sensitivity method [Mass/Vol] 18 pg/mL 0-20 [facility] Activated partial thrombopla stin time (aPTT) in platelet poor plasma by coagulation aOrdered By: Juan Pablo Agiular on 03-21-2022 aPTT Coag (PPP) [Time] 28.5 s 25.1-36.5 [facility] B-Type Natriuretic Peptideon 03-21-2022 Natriuretic peptide B (Bld) [Mass/Vol] 74.0 pg/mL Normal 5-100 [facility] Comment on above: Result Comment: PERF ORMED BY: [place] [address] PATHOLOGIST CLIENT SERVICES ANALYST YAMILET BACK M.D. Performed By: #### C K, CKMB, HS TROP #### [facility] [address] [place], [place] [id number] [facility] Basic Metabolic Panelon 12- Anion gap [Moles/Vol] 12.7 mmol/L Normal 6.0-15.0 [facility] Comment on above: Performed By: #### B W[employer] PROJECT MANAGER, CBC, PT, PTT, BMP, CK, CKMB, HS TROP #### [facility] [address] Calcium [Mass/Vol] 10.0 mg/dL Normal 8.2-10.2 [facility] Comment on above: Performed By: #### B WIND ENERGY PROJECT MANAGER, CBC, PT, PTT, BMP, CK, CKMB, HS TROP #### [facility] [address] Chloride [Moles/Vol] 104 mmol/L Normal 95-114 [facility] Comment on above: Performed By: #### B WIND ENERGY PROJECT MANAGER, CBC, PT, PTT, BMP, CK, CKMB, HS TROP #### [facility] [address] CO2 [Moles/Vol] 24.4 mmol/L Normal 22.0-30.0 [facility] Comment on above: Performed By: #### B WIND ENERGY PROJECT MANAGER, CBC, PT, PTT, BMP, CK, CKMB, HS TROP #### [facility] [address] Creatinine [Mass/Vol] 0.96 mg/dL Normal 0.64-1.27 [facility] Comment on above: Performed By: #### B WIND ENERGY PROJECT MANAGER, CBC, PT, PTT, BMP, CK, CKMB, HS TROP #### [facility] [address] Creatinine Clr Calc Pharmacy 94.11 [facility] Comment on above: Result Comment: PERF ORMED BY: [place] [address] PATHOLOGIST CLIENT SERVICES ANALYST YAMILET BACK M.D. Performed By: #### B WIND ENERGY PROJECT MANAGER, CBC, PT, PTT, BMP, CK, CKMB, HS TROP #### [address] Estimated GFR ( Anum > 60 [facility] Comment on above: Result Comment: GFR estimated reference range: According to KDOQI guidelines, <60 ml/min/1.73m2 is sufficient to diagnose a patient with chronic kidney disease. Performed By: #### B WIND ENERGY PROJECT MANAGER, CBC, PT, PTT, BMP, CK, CKMB, HS TROP #### [facility] [address] Estimated GFR (Non- Am > 60 [facility] Comment on above: Performed By: #### B WIND ENERGY PROJECT MANAGER, CBC, PT, PTT, BMP, CK, CKMB, HS TROP #### [facility] [address] Glucose [Mass/Vol] 123 mg/dL High 70-100 [facility] Comment on above: Result Comment: [place] om Glucose Reference Range is dependent on time and content of last meal. Glucose of more than 200 mg/dL in a nonstressed, ambulatory subject supports the diagnosis of Diabetes Mellitus. ADA recommended reference range Performed By: #### B WIND ENERGY PROJECT MANAGER, CBC, PT, PTT, BMP, CK, CKMB, HS TROP #### [facility] [address] Potassium [Moles/Vol] 5.1 mmol/L Normal 3.5-5.1 [facility] Comment on above: Performed By: #### B WIND ENERGY PROJECT MANAGER, CBC, PT, PTT, BMP, CK, CKMB, HS TROP #### [facility] [address] Sodium [Moles/Vol] 136 mmol/L Normal 136-146 [facility] Comment on above: Performed By: #### B WIND ENERGY PROJECT MANAGER, CBC, PT, PTT, BMP, CK, CKMB, HS TROP #### [facility] [address] Urea nitrogen [Mass/Vol] 20 mg/dL Normal 9-23 [facility] Comment on above: Performed By: #### B WIND ENERGY PROJECT MANAGER, CBC, PT, PTT, BMP, CK, CKMB, HS TROP #### [facility] [address] Basophils Auto (Bld) [#/Vol] Ordered By: Juan Pablo Aguilar on 03-21-2022 Basophils (Bld) [#/Vol] 0.0 10*3/uL 0.0-0.2 [facility] Basophils/100 WBC Auto (Bld) Ordered By: Juan Pablo Aguilar on 03-21-2022 Basophils/100 WBC (Bld) 0.6 % . [facility] Complete Blood Count Auto Di ffon 03-21-2022 Basophils (Bld) [#/Vol] 0.0 10*3/uL Normal 0.0-0.2 [facility] Comment on above: Result Comment: PERF ORMED BY: [place] [address] PATHOLOGIST CLIENT SERVICES ANALYST YAMILET BACK M.D. Performed By: #### B WIND ENERGY PROJECT MANAGER, CBC, PT, PTT, BMP, CK, CKMB, HS TROP #### [address] Basophils/100 WBC (Bld) 0.6 % Normal . [facility] Comment on above: Performed By: #### B WIND ENERGY PROJECT MANAGER, CBC, PT, PTT, BMP, CK, CKMB, HS TROP #### [facility] [address] Eosinophils (Bld) [#/Vol] 0.2 10*3/uL Normal 0.0-0.45 [facility] Comment on above: Performed By: #### B WIND ENERGY PROJECT MANAGER, CBC, PT, PTT, BMP, CK, CKMB, HS TROP #### [address] Eosinophils/100 WBC (Bld) 2.7 % Normal . [facility] Comment on above: Performed By: #### B WIND ENERGY PROJECT MANAGER, CBC, PT, PTT, BMP, CK, CKMB, HS TROP #### [address] Erythrocyte distribution width (RBC) [Ratio] 14.1 % Normal 12.0-14.8 [facility] Comment on above: Performed By: #### B WIND ENERGY PROJECT MANAGER, CBC, PT, PTT, BMP, CK, CKMB, HS TROP #### [address] Hematocrit (Bld) [Volume fraction] 39.2 % Normal 38.8-50.0 [facility] Comment on above: Performed By: #### B WIND ENERGY PROJECT MANAGER, CBC, PT, PTT, BMP, CK, CKMB, HS TROP #### [address] Hemoglobin (Bld) [Mass/Vol] 12.9 g/dL Low 13.0-17.0 [facility] Comment on above: Performed By: #### B WIND ENERGY PROJECT MANAGER, CBC, PT, PTT, BMP, CK, CKMB, HS TROP #### [address] Lymphocytes (Bld) [#/Vol] 1.9 10*3/uL Normal 1.00-4.8 [facility] Comment on above: Performed By: #### B WIND ENERGY PROJECT MANAGER, CBC, PT, PTT, BMP, CK, CKMB, HS TROP #### [address] Lymphocytes/100 WBC (Bld) 26.9 % Normal . [facility] Comment on above: Performed By: #### B WIND ENERGY PROJECT MANAGER, CBC, PT, PTT, BMP, CK, CKMB, HS TROP #### [address] MCH (RBC) [Entitic mass] 30.8 pg Normal 27.5-35.2 [facility] Comment on above: Performed By: #### B WIND ENERGY PROJECT MANAGER, CBC, PT, PTT, BMP, CK, CKMB, HS TROP #### [address] MCV (RBC) [Entitic vol] 93.4 fL Normal 83.5-101 [facility] Comment on above: Performed By: #### B WIND ENERGY PROJECT MANAGER, CBC, PT, PTT, BMP, CK, CKMB, HS TROP #### [address] Mean Corpuscular HGB Conc 33.0 g/dL Normal 32.5-35.6 [facility] Comment on above: Performed By: #### B WIND ENERGY PROJECT MANAGER, CBC, PT, PTT, BMP, CK, CKMB, HS TROP #### [facility] [address] [place] [address] [place] Monocytes (Bld) [#/Vol] 0.8 10*3/uL Normal 0.0-0.8 [facility] Comment on above: Performed By: #### B WIND ENER[employer] PROJECT MANAGER, CBC, PT, PTT, BMP, CK, CKMB, HS TROP #### [facility] [address] Monocytes/100 WBC (Bld) 17.83 % Normal 0.00-20.00 [facility] Comment on above: Performed By: #### B WIND ENERGY PROJECT MANAGER, CBC, PT, PTT, BMP, CK, CKMB, HS TROP #### [address] Monocytes/100 WBC (Bld) 11.1 % Normal . [facility] Comment on above: Performed By: #### B W[employer] ENERGY PROJECT MANAGER, CBC, PT, PTT, BMP, CK, CKMB, HS TROP #### [address] Neutrophils (Bld) [#/Vol] 4.2 10*3/uL Normal 1.8-7.7 [facility] Comment on above: Performed By: #### B WIND ENERGY PROJECT MANAGER, CBC, PT, PTT, BMP, CK, CKMB, HS TROP #### [address] Neutrophils/100 WBC (Bld) 58.7 % Normal . [facility] Comment on above: Performed By: #### B WIND ENERGY PROJECT MANAGER, CBC, PT, PTT, BMP, CK, CKMB, HS TROP #### [place] [address] [place] NRBC% 0.1 /100{WBC} Normal 0-0.5 [facility] Comment on above: Performed By: #### B WIND ENERGY PROJECT MANAGER, CBC, PT, PTT, BMP, CK, CKMB, HS TROP #### [place] [address] [place] Platelet mean volume (Bld) [Entitic vol] 7.8 fL Normal 6.6-10.1 [facility] Comment on above: Performed By: #### B WIND ENERGY PROJECT MANAGER, CBC, PT, PTT, BMP, CK, CKMB, HS TROP #### [facility] [address] Platelets (Bld) [#/Vol] 205 10*3/uL Normal 150-450 [facility] Comment on above: Performed By: #### B [employer] PROJECT MANAGER, CBC, PT, PTT, BMP, CK, CKMB, HS TROP #### [facility] [address] RBC (Bld) [#/Vol] 4.20 10*6/uL Normal 3.90-5.60 [facility] Comment on above: Performed By: #### B [employer]ER[employer] PROJECT MANAGER, CBC, PT, PTT, BMP, CK, CKMB, HS TROP #### [facility] [address] WBC (Bld) [#/Vol] 7.1 10*3/uL Normal 4.1-10.5 [facility] Comment on above: Performed By: #### B [employer] PROJECT MANAGER, CBC, PT, PTT, BMP, CK, CKMB, HS TROP #### [facility] [address] Creatine Kinaseon 03-21-2022 CK [Catalytic activity/Vol] 122 U/L Normal [facility] Comment on above: Performed By: #### C K, CKMB, HS TROP #### [facility] [address] CK [Catalytic activity/Vol] 153 U/L Normal 22- [facility] Comment on above: Performed By: #### B [employer] PROJECT MANAGER, CBC, PT, PTT, BMP, CK, CKMB, HS TROP #### [facility] [address] Creatine kinase [Enzymatic a ctivity/volume] in Serum or PlasmaOrdered By: Juan Pablo Aguilar on 03-21-2022 CK [Catalytic activity/Vol] 153 U/L [facility] Creatinine Kinase MBon 03-21 CK.MB [Mass/Vol] 2.8 ng/mL Normal 0.6-6.3 [facility] Comment on above: Performed By: #### C K, CKMB, HS TROP #### [facility] [address] [place] [id number] [place] CKMB Relative Index 2.2 % Normal 0.00-2.50 [facility] Comment on above: Performed By: #### C K, CKMB, HS TROP #### [facility] [address] CK.MB [Mass/Vol] 3.0 ng/mL Normal 0.6-6.3 [facility] Comment on above: Performed By: #### C K, CKMB, HS TROP #### [facility] [address] CKMB Relative Index 1.9 % Normal 0.00-2.50 [facility] Comment on above: Performed By: #### C K, CKMB, HS TROP #### [facility] [address] [place] [address] [place] Creatinine and Glomerular fi ltration rate.predicted panel (S/P/Bld)Ordered By: Juan Pablo Aguilar on 03-21-2022 Creatinine [Mass/Vol] 0.96 mg/dL 0.64-1.27 [facility] ECG 12 lead ECGon 03-21-2022 ECG 12 lead ECG [facility] Main [place] [address] [place] [address] Electrocardiograph Report Signed Patient: Tammy Wu MR#: [id number] [birth year] : 1950 Acct:[id number] Age/Sex: 72 / M ADM Date: 03/21/22 Loc: Room: [address] [place] [address] Type: DIS INOo Attending Dr: Jakub Andrews MD Ordering Provider: Juan Pablo Aguilar DO Date of Service: 03/21/22 ECG/ECG 12 lead ECG: Chest Pain Copies to: Test Reason : Blood Pressure : / mmHG Vent. Rate : 058 BPM Atrial Rate : 058 BPM P-R Int : 274 ms QRS Dur : 080 ms QT Int : 360 ms P-R-T Axes : 059 021 053 degrees QTc Int : 353 ms Sinus bradycardia with 1st degree AV block Cannot rule out Anterior infarct , age undetermined Abnormal ECG No previous ECGs available Confirmed by BROOK WHITTINGTON MD ([id number]) on 03/21/2022 4:35:06 PM Referred By: Electronically Signed By:BROOK WHITTINGTON MD Transcribed By: MUS Signed By Brook Whittington MD 03/21/22 1635 Normal [facility] Eosinophils Auto (Bld) [#/Vo l]Ordered By: Juan Pablo Aguilar on 03-21-2022 Eosinophils (Bld) [#/Vol] 0.2 10*3/uL 0.0-0.45 [facility] Eosinophils/100 WBC Auto (Bl d)Ordered By: Juan Pablo Aguilar on 03-21-2022 Eosinophils/100 WBC (Bld) 2.7 % . [facility] Erythrocyte distribution wid th Auto (RBC) [Ratio]Ordered By: Juan Pablo Aguilar on 03-21-2022 Erythrocyte distribution width (RBC) [Ratio] 14.1 % 12.0-14.8 [facility] Estimated glomerular filtrat ion rate (GFR) non- AmericanOrdered By: Juan Pablo Aguilar on 03-21-2022 GFR/1.73 sq M.predicted among non-blacks MDRD (S/P/Bld) [Vol rate/Area] > 60 mL/Min [facility] Glucose Poct Glucometerson 1 05-22-2021 Commemt1 Glu2: Cleaned Meter Normal [facility] Comment on above: Result Comment: PERF ORMED BY: [place] [address] PATHOLOGIST CLIENT SERVICES ANALYST YAMILET BACK M.D. Performed By: #### C K, CKMB, HS TROP #### [address] Glucose [Mass/Vol] 142 mg/dL Normal [facility] Comment on above: Result Comment: [place] Glucose Reference Range is dependent on time and content of last meal. Glucose of more than 200 mg/dL in a nonstressed, ambulatory subject supports the diagnosis of Diabetes Mellitus. Performed By: #### C K, CKMB, HS TROP #### [facility] [address] Hematocrit Auto (Bld) [Volum e fraction]Ordered By: Juan Pablo Aguilar on 03-21-2022 Hematocrit (Bld) [Volume fraction] 39.2 % 38.8-50.0 [facility] Hemoglobin [Mass/volume] in BloodOrdered By: Juan Pablo Aguilar on 03-21-2022 Hemoglobin (Bld) [Mass/Vol] 12.9 g/dL 13.0-17.0 [facility] Laboratory - Chemistry and C hemistry - challengeOrdered By: Juan Pablo Aguilar on 03-21-2022 Natriuretic peptide B (Bld) [Mass/Vol] 74.0 pg/mL 5-100 [facility] Laboratory - CoagulationOrde red By: Juan Pablo Aguilar on 03-21-2022 PT Coag (PPP) [Time] 11.6 s 9.0-12.9 [facility] Leukocytes [#/volume] correc usama for nucleated erythrocytes in Blood by Automated counOrdered By: Juan Pablo Aguilar on 03-21-2022 WBC corrected for nucl RBC Auto (Bld) [#/Vol] 7.1 10*3/uL 4.1-10.5 [facility] Lymphocytes Auto (Bld) [#/Vo l]Ordered By: Juan Pablo Aguilar on 03-21-2022 Lymphocytes (Bld) [#/Vol] 1.9 10*3/uL 1.00-4.8 [facility] Lymphocytes/100 WBC Auto (Bl d)Ordered By: Juan Pablo Aguilar on 03-21-2022 Lymphocytes/100 WBC (Bld) 26.9 % . [facility] MCH Auto (RBC) [Entitic mass ]Ordered By: Juan Pablo Aguilar on 03-21-2022 MCH (RBC) [Entitic mass] 30.8 pg 27.5-35.2 [facility] MCHC Auto (RBC) [Mass/Vol]Or dered By: Juan Pablo Aguilar on 03-21-2022 MCHC (RBC) [Mass/Vol] 33.0 g/dL 32.5-35.6 [facility] MCV Auto (RBC) [Entitic vol] Ordered By: Juan Pablo Aguilar on 03-21-2022 MCV (RBC) [Entitic vol] 93.4 fL 83.5-101 [facility] Monocyte distribution width [Entitic volume] in Blood by AutomatedOrdered By: Juan Pablo Aguilar on 03-21-2022 Monocyte distribution width Auto (Bld) [Entitic vol] 17.83 % 0.00-20.00 [facility] Monocytes Auto (Bld) [#/Vol] Ordered By: Juan Pablo Aguilar on 03-21-2022 Monocytes (Bld) [#/Vol] 0.8 10*3/uL 0.0-0.8 [facility] Monocytes/100 WBC Auto (Bld) Ordered By: Juan Pablo Aguilar on 03-21-2022 Monocytes/100 WBC (Bld) 11.1 % . [facility] Neutrophils Auto (Bld) [#/Vo l]Ordered By: Juan Pablo Aguilar on 03-21-2022 Neutrophils (Bld) [#/Vol] 4.2 10*3/uL 1.8-7.7 [facility] Neutrophils/100 WBC Auto (Bl d)Ordered By: Juan Pablo Aguilar on 03-21-2022 Neutrophils/100 WBC (Bld) 58.7 % . [facility] No Panel InformationOrdered By: Juan Pabol Aguilar on 03-21-2022 Estimated GFR () > 60 mL/Min [facility] Comment on above: GFR estimated refere nce range: According to KDOQI guidelines, <60 ml/min/1.73m2 is sufficient to diagnose a patient with chronic kidney disease. Pharmacy Creatinine Clearance (Chem 94.11 [facility] Nucleated erythrocytes [Pres ence] in Blood by Automated countOrdered By: Juan Pablo Aguilar on 03-21-2022 Nucleated RBC Auto Ql (Bld) 0.1 /100{WBC} 0-0.5 [facility] Partial Thromboplastin Timeo n 03-21-2022 aPTT Coag (Bld) [Time] 28.5 s Normal 25.1-36.5 [facility] Comment on above: Result Comment: PERF ORMED BY: [facility] [address] PATHOLOGIST CLIENT SERVICES ANALYST YAMILET BACK M.D. Performed By: #### B W[employer]ERGY PROJECT MANAGER, CBC, PT, PTT, BMP, CK, CKMB, HS TROP #### [facility] [address] [place] [address] Platelet mean volume Auto (B ld) [Entitic vol]Ordered By: Juan Pablo Aguilar on 03-21-2022 Platelet mean volume (Bld) [Entitic vol] 7.8 fL 6.6-10.1 [facility] Platelet poor plasma interna tional normalized ratio (INR) by coagulation assay (relatOrdered By: Juan Pablo Aguilar on 03-21-2022 INR Coag (PPP) [Relative time] 1.0 {INR} [facility] Comment on above: INR Therapeutic Rang e A) Pre- and Peroperative OAT started two weeks before surgery. NOT HIP SURGERY: 1.5 - 2.5 HIP SURGERY: 2 - 3B) Primary and secondary prevention of venous THROMBOSIS: 2 - 3C) Active venous thrombosis, pulmonary embolismand prevention of recurrent venous thrombosis: 2 - 3D) Prevention of arterial thromboembolismincluding patients with mechanical heart valves: 3 - 4.5 Platelets Auto (Bld) [#/Vol] Ordered By: Juan Pablo Aguilar on 03-21-2022 Platelets (Bld) [#/Vol] 205 10*3/uL 150-450 [facility] Prothrombin Time INRon 03-21 INR Coag (PPP) [Relative time] 1.0 {INR} Normal [facility] Comment on above: Result Comment: INR Therapeutic Range A) Pre- and Peroperative OAT started two weeks before surgery. NOT HIP SURGERY: 1.5 - 2.5 HIP SURGERY: 2 - 3 B) Primary and secondary prevention of venous THROMBOSIS: 2 - 3 C) Active venous thrombosis, pulmonary embolism and prevention of recurrent venous thrombosis: 2 - 3 D) Prevention of arterial thromboembolism including patients with mechanical heart valves: 3 - 4.5 Performed By: #### B WIND ENERGY PROJECT MANAGER, CBC, PT, PTT, BMP, CK, CKMB, HS TROP #### [facility] [address] [place] [address] PT Coag (PPP) [Time] 11.6 s Normal 9.0-12.9 [facility] Comment on above: Performed By: #### B WIND ENERGY PROJECT MANAGER, CBC, PT, PTT, BMP, CK, CKMB, HS TROP #### [facility] [address] RBC Auto (Bld) [#/Vol]Ordere d By: Juan Pablo Aguilar on 03-21-2022 RBC (Bld) [#/Vol] 4.20 10*6/uL 3.90-5.60 [facility] Serum or plasma anion gap de terminationOrdered By: Juan Pablo Aguilar on 03-21-2022 Anion gap [Moles/Vol] 12.7 mmol/L 6.0-15.0 [facility] Serum or plasma calcium rossana urement (mass/volume)Ordered By: Juan Pablo Aguilar on 03-21-2022 Calcium [Mass/Vol] 10.0 mg/dL 8.2-10.2 [facility] Serum or plasma chloride izzy surement (moles/volume)Ordered By: Juan Pablo Aguilar on 03-21-2022 Chloride [Moles/Vol] 104 mmol/L 95-114 [facility] Serum or plasma creatine kin ase MB (CKMB)/total creatine kinase (CK) ratio by calculaOrdered By: Juan Pablo Aguilar on 03-21-2022 CK.MB Calc [Catalytic fraction] 1.9 % 0.00-2.50 [facility] Serum or plasma creatine kin ase MB measurement (mass/volume)Ordered By: Juan Pablo Aguilar on 03-21-2022 CK.MB [Mass/Vol] 3.0 ng/mL 0.6-6.3 [facility] Serum or plasma glucose rossana urement (mass/volume)Ordered By: Juan Pablo Aguilar on 03-21-2022 Glucose [Mass/Vol] 123 mg/dL 70-100 [facility] Comment on above: ADA recommended refe rence rangeRandom Glucose Reference Range is dependent on time and content of last meal. Glucose of more than 200 mg/dL in a nonstressed, ambulatory subject supports the diagnosis of Diabetes Mellitus. Serum or plasma potassium me asurement (moles/volume)Ordered By: Juan Pablo Aguilar on 12-18-2022 Potassium [Moles/Vol] 5.1 mmol/L 3.5-5.1 [facility] Serum or plasma sodium measu rement (moles/volume)Ordered By: Juan Pablo Aguilar on 03-21-2022 Sodium [Moles/Vol] 136 mmol/L 136-146 [facility] Serum or plasma total carbon dioxide measurement (moles/volume)Ordered By: Juan Pablo Aguilar on 03-21-2022 CO2 [Moles/Vol] 24.4 mmol/L 22.0-30.0 [facility] Serum or plasma urea nitroge n measurement (mass/volume)Ordered By: Juan Pablo Aguilar on 03-21-2022 Urea nitrogen [Mass/Vol] 20 mg/dL 9-23 [facility] Troponin I High Sensitivityo n 03-21-2022 Troponin I High Sensitivity 11 pg/mL Normal 0-20 [facility] Comment on above: Result Comment: PERF ORMED BY: [place] [address] PATHOLOGIST CLIENT SERVICES ANALYST YAMILET BACK M.D. Performed By: #### C K, CKMB, HS TROP #### [facility] [address] [place] [address] [place] Troponin I High Sensitivity 11 pg/mL Normal 0-20 [facility] Comment on above: Result Comment: PERF ORMED BY: [place] [address] PATHOLOGIST CLIENT SERVICES ANALYST YAMILET BACK M.D. Performed By: #### H S TROP #### [facility] [address] [place] [address] [place] Troponin I High Sensitivity 10 pg/mL Normal 0-20 [facility] Comment on above: Result Comment: PERF ORMED BY: [facility] [address] [place] [address] PATHOLOGIST CLIENT SERVICES ANALYST YMAILET BACK M.D. Performed By: #### C K, CKMB, HS TROP #### [facility] [address] [place] [address] [place] Troponin I.cardiac [Mass/vol ume] in Serum or Plasma by High sensitivity methodOrdered By: Tyree Husain on 03-21-2022 Troponin I.cardiac High sensitivity method [Mass/Vol] 11 pg/mL 0-20 [facility] WBC Auto (Bld) [#/Vol]Ordere d By: Juan Pablo Aguilar on 03-21-2022 WBC (Bld) [#/Vol] 7.1 10*3/uL 4.1-10.5 [facility] XR chest 2V*on 03-21-2022 XR chest 2V* [facility] [place] [address] XRay Report Signed Patient: Tammy Wu MR#: [id number] [birth year] : 1950 Acct:[id number] Age/Sex: 72 / M ADM Date: 03/21/22 Loc: ER Room: Type: PRE ER Attending Dr: Copies to: Juan Pablo Aguilar DO TEMP, PROVIDER Ordering Provider: Juan Pablo Aguilar DO Date of Service: 03/21/22 XR/XR chest 2V*: Chest Pain XR chest 2V* 03/21/2022 11:42 AM SIGNS AND SYMPTOMS: Chest Pain PROTOCOL: Frontal and lateral radiograph of the chest COMPARISON: None FINDINGS: The trachea is midline. The heart and mediastinal structures are within normal limits. The lung parenchyma is clear. The bony thorax is intact. Degenerative changes are noted in the thoracic spine and shoulders. XR/XR chest 2V* IMPRESSION: No acute cardiopulmonary pathology. Impression dictated by: Alexei Munoz M.D.03/21/2022 1:03 PM Dictation Location: [place] [address] Transcribed By: [facility] 03/21/22 1303 Dictated By: Alexei Munoz II, MD 03/21/22 1302 Signed By: 03/21/22 1303 Normal [facility] Office Visit (Cardiology)on 03-17-2022 Follow-up visit Diagnoses/Problems Assessed Benign essential hypertension (401.1) (I10) Diabetes mellitus (250.00) (E11.9) Hyperlipidemia (272.4) (E78.5) Morbid obesity with BMI of 45.0-49.9, adult (278.01,V85.42) (E66.01,Z68.42) Orders Benign essential hypertension Start: Spironolactone 25 MG Oral Tablet; TAKE 1 TABLET DAILY Basic Metabolic Panel; Status:Active; Requested for:07Apr2022; Hyperlipidemia Renew: Atorvastatin Calcium 40 MG Oral Tablet (Lipitor); TAKE 1 TABLET AT BEDTIME Morbid obesity with BMI of 45.0-49.9, adult Healthy Weight Tips; Status:Complete; Done: [id number] Some eating tips that can help you lose weight.; Status:Complete; Done: [id number] Patient Instructions Please bring all medicines, vitamins, and herbal supplements with you when you come to the office. Prescriptions will not be filled unless you are compliant with your follow up appointments or have a follow up appointment scheduled as per instruction of your physician. Refills should be requested at the time of your visit. Blood pressure follow up in 3 weeks Follow up in 6 months Chief Complaint overdue History of Present Illness Patient returns in follow-up of problems as noted. He is done relatively well in the interim but blood pressure control could be improved. There was some confusion and he was inadvertently taking both irbesartan and lisinopril. He believes lisinopril is working better because of this we will stop the irbesartan. Blood pressure is elevated because of this I recommended the addition of additional antihypertensive therapy as noted in an effort to achieve control. Blood pressure check in 3 weeks and follow-up with me in the spring. If continued elevations in blood pressure are noted we will transition away from triamterene hydrochlorothiazide and add chlorthalidone as our next intervention. The rationale and the importance of treating his blood pressure not only to mitigate cardiovascular risk but also the consequences of diabetes mellitus and renal failure were emphasized and he is motivated. Treatment of lipids is satisfactory and because of this no adjustment necessary. He was reminded regarding the merits of diet exercise and weight loss. Active Problems Problems Benign essential hypertension (401.1) (I10) Diabetes mellitus (250.00) (E11.9) Former smoker (V15.82) (Z87.891) quit smoking 20+years ago Hyperlipidemia (272.4) (E78.5) Morbid obesity with BMI of 45.0-49.9, adult (278.01,V85.42) (E66.01,Z68.42) Surgical History Problems History of Achilles tenotomy History of Colonoscopy 04Apr2017 History of Hip replacement History of Knee replacement History of Lower back surgery History of Rotator cuff repair Past Medical History Problems History of chest pain (V13.89) (Z87.898) History of dyspnea (V12.69) (Z87.898) Current Meds Medication NameInstruction amLODIPine Besylate 5 MG Oral TabletTake 1 tablet daily Carvedilol 12.5 MG Oral TabletTAKE 1 TABLET TWICE DAILY. Irbesartan 300 MG Oral TabletTake 1 tablet daily Lipitor 40 MG Oral TabletTAKE 1 TABLET AT BEDTIME. Lisinopril 40 MG Oral TabletTAKE 1 TABLET DAILY DIRECTED. metFORMIN HCl - 1000 MG Oral TabletTAKE 1 TABLET EVERY 12 HOURS DAILY. NovoLIN 70/30 PenFill (70-30) 100 UNIT/ML SUSPUSE DIRECTED. Triamterene-HCTZ 37.5-25 MG Oral TabletTAKE 1 TABLET DAILY. Victoza 18 MG/3ML Subcutaneous SolutionINJECT 1.8 MG SUBCUTANEOUSLY EVERY DAY Allergies Medication No Known Drug Allergies Recorded By: Sharee De Leon; 04/10/2021 3:40:56 PM Family History Mother Family history of diabetes mellitus (V18.0) (Z83.3) Family history of High serum cholestanol Father Family history of myocardial infarction (V17.3) (Z82.49) Social History Problems Consumes alcohol occasionally (V49.89) (Z78.9) 2-3 drinks a month Daily caffeine consumption, 1 serving a day Former smoker (V15.82) (Z87.891) quit smoking 20+years ago No illicit drug use Review of Systems Constitutional: not feeling tired. Eyes: no eyesight problems. ENT: no hearing loss and no nosebleeds. Cardiovascular: no intermittent leg claudication and as noted in HPI. Respiratory: no chronic cough and no shortness of breath. Gastrointestinal: no change in bowel habits and no blood in stools. Genitourinary: no urinary frequency and no hematuria. Skin: no skin rashes. Neurological: no seizures and no frequent falls. Psychiatric: no depression and not suicidal. All other systems have been reviewed and are negative for complaint. Vitals Vital Signs Recorded: [id number] 04:57PMRecorded: 78Vhs9589 02:37PM Heart Rate60, R Lhdqcc57, R Radial Sknxiash543, RUE, Zodygxc086, RUE, Sitting Hxagethwr19, RUE, Rjftzbk95, RUE, Sitting Height5 ft 7 in5 ft 7 in Emoxht337 lb 310 lb BMI Bdkkocykzr92.55 kg/m248.55 kg/m2 BSA Calculated2.442.44 Tobacco Useb) No PHQ-2 #1. Over the last 2 weeks have you felt down, depressed or hopeless? (If yes, answer PHQ-9 belo (more content not included)... Normal [employer] Tobacco Screening.on 022 Adult depression screening assessment No [employer] [facility] [employer] DO Work Phone: Fall risk assessment a) No falls within the last year [facility] [employer] 250 DO Work Phone: Tobacco use status CPHS b) No [facility] [employer] 250 DO Work Phone: XR CHEST 2 Von 10-20-2021 XR CHEST 2 V EXAMINATION: XR CHES T 2 V HISTORY: Cough ; chronic productive cough COMPARISON: XR chest 10/03/2014 FINDINGS: LUNGS: No significant pulmonary parenchymal abnormalities. VASCULATURE: No increased pulmonary vasculature. PLEURA: No pneumothorax, effusion, or pleural thickening. CARDIAC: No cardiomegaly or cardiac silhouette abnormality. MEDIASTINUM: No visible mass or adenopathy. BONES: No fracture or visible bone lesion. OTHER: Negative. IMPRESSION: 1. Low lung volume examination. No acute cardiopulmonary process or appreciable chronic changes. Electronically authenticated by: JOYA MCRAE Date: 2021-10-20 15:46 Normal [facility] PSA SCREEN (MEDICARE)on 06-02 TPSA 0.380 ng/mL Normal <4.000 [facility] [employer] Comment on above: Result Comment: PSA Test Method: ECLIA/Jose e 601 Performed By: #### P #### [facility] [address] [place], [place] [id number] Complete Blood Counton 03-09 Erythrocyte distribution width (RBC) [Ratio] 14.2 % Normal 11.0-15.0 [facility] [employer] Comment on above: Performed By: #### C BC, LIPD, TSH reflex FT4, URIC, CMP #### [facility] [address] [place], [place] [id number] Hematocrit (Bld) [Volume fraction] 40.6 % Normal 38.5-50.0 [facility] Specialist Comment on above: Performed By: #### C BC, LIPD, TSH reflex FT4, URIC, CMP #### [facility] [address] [place], [place] [id number] Hemoglobin (Bld) [Mass/Vol] 13.0 g/dL Normal 13.0-17.1 [facility] Specialist Comment on above: Performed By: #### C BC, LIPD, TSH reflex FT4, URIC, CMP #### [facility] [address] [place], [place] [id number] MCH (RBC) [Entitic mass] 31.1 pg Normal 27.0-33.0 [facility] Specialist Comment on above: Performed By: #### C BC, LIPD, TSH reflex FT4, URIC, CMP #### [facility] [address] [place], [place] [id number] MCHC (RBC) [Mass/Vol] 32.0 g/dL Normal 32.0-36.0 [facility] Comment on above: Performed By: #### C BC, LIPD, TSH reflex FT4, URIC, CMP #### [facility] [address] [place], [place] [id number] MCV (RBC) [Entitic vol] 97 fL Normal 80-100 [facility] Specialist Comment on above: Performed By: #### C BC, LIPD, TSH reflex FT4, URIC, CMP #### [facility] [address] [place], [place] [id number] Platelet mean volume (Bld) [Entitic vol] 9.60 fL Normal 7.50-12.50 [facility] Specialist Comment on above: Performed By: #### C BC, LIPD, TSH reflex FT4, URIC, CMP #### [facility] [address] [place], [place] [id number] Platelets (Bld) [#/Vol] 185 10*3/uL Normal 140-400 [facility] Specialist Comment on above: Performed By: #### C BC, LIPD, TSH reflex FT4, URIC, CMP #### [facility] [address] [place], [place] [id number] RBC (Bld) [#/Vol] 4.18 10*6/uL Low 4.20-5.80 [facility] [employer] Comment on above: Performed By: #### C BC, LIPD, TSH reflex FT4, URIC, CMP #### [facility] [address] [place], [place] [id number] RDW-SD 50.9 fL High 37.0-50.0 [facility] [employer] Comment on above: Performed By: #### C BC, LIPD, TSH reflex FT4, URIC, CMP #### [facility] [address] [place], [place] [id number] WBC (Bld) [#/Vol] 5.9 10*3/uL Normal 3.8-11.0 [facility] [employer] Comment on above: Performed By: #### C BC, LIPD, TSH reflex FT4, URIC, CMP #### [facility] [address] [place], [place] [id number] Comprehensive Metabolic Pane [facility] 03-09-2021 Albumin [Mass/Vol] 4.8 g/dL Normal 3.6-5.1 [facility] [employer] Comment on above: Performed By: #### C BC, LIPD, TSH reflex FT4, URIC, CMP #### [facility] [address] [place], [place] [id number] Albumin/Globulin [Mass ratio] 1.8 {ratio} Normal 1.0-2.5 [facility] [employer] Comment on above: Performed By: #### C BC, LIPD, TSH reflex FT4, URIC, CMP #### [facility] [address] [place], [place] [id number] ALP [Catalytic activity/Vol] 83 U/L Normal 40-129 [facility] [employer] Comment on above: Performed By: #### C BC, LIPD, TSH reflex FT4, URIC, CMP #### [facility] [address] [place], [place] [id number] ALT [Catalytic activity/Vol] 34 U/L Normal 9-46 [facility] [employer] Comment on above: Result Comment: 12/1 /2021 Female reference range changed. Performed By: #### C BC, LIPD, TSH reflex FT4, URIC, CMP #### [facility] [address] [place], [place] [id number] Anion gap [Moles/Vol] 17 mmol/L Normal 12-20 [facility] Comment on above: Result Comment: Effkalyani ctive 04/09/2019 reference range changed. Performed By: #### C BC, LIPD, TSH reflex FT4, URIC, CMP #### [facility] [address], [place] [id number] AST [Catalytic activity/Vol] 22 U/L Normal 10-[address] [facility] Comment on above: Performed By: #### C BC, LIPD, TSH reflex FT4, URIC, CMP #### [facility] [address], [place] [id number] Bilirubin [Mass/Vol] 0.51 mg/dL Normal 0.30-1.20 [facility] Comment on above: Performed By: #### C BC, LIPD, TSH reflex FT4, URIC, CMP #### [facility] [address], [place] [id number] BUN/CREA 33 Ratio High 6-[address] [facility] Comment on above: Performed By: #### C BC, LIPD, TSH reflex FT4, URIC, CMP #### [facility] [address], [place] [id number] Calcium [Mass/Vol] 10.8 mg/dL High 8.6-10.2 [facility] Comment on above: Performed By: #### C BC, LIPD, TSH reflex FT4, URIC, CMP #### [facility] [address] [facility] [place] [id number] Chloride [Moles/Vol] 107 mmol/L Normal 98-107 [facility] Comment on above: Performed By: #### C BC, LIPD, TSH reflex FT4, URIC, CMP #### [facility] [address] [place] [id number] CO2 [Moles/Vol] 23 mmol/L Normal 20-[address] [facility] Comment on above: Performed By: #### C BC, LIPD, TSH reflex FT4, URIC, CMP #### [facility] [address], [place] [id number] Creatinine [Mass/Vol] 0.9 mg/dL Normal 0.7-1.[address] [facility] Specialist Comment on above: Performed By: #### C BC, LIPD, TSH reflex FT4, URIC, CMP #### [facility] [address], [place] [id number] eGFRAA 96 mL/min/1.73m2 Normal >60 [facility] Specialist Comment on above: Performed By: #### C BC, LIPD, TSH reflex FT4, URIC, CMP #### [facility] [address], [place] [id number] eGFRNAA 79 mL/min/1.73m2 Normal >60 [facility] [employer] Comment on above: Performed By: #### C BC, LIPD, TSH reflex FT4, URIC, CMP #### [facility] [address], [place] [id number] Globulin (S) [Mass/Vol] 2.6 g/dL Normal 1.9-3.7 [facility] [employer] Comment on above: Performed By: #### C BC, LIPD, TSH reflex FT4, URIC, CMP #### [facility] [address], [place] [id number] Glucose [Mass/Vol] 89 mg/dL Normal 65-99 [facility] [employer] Comment on above: Result Comment: For FASTING Glucose --- ADA reference ranges: Normal 65-99 mg/dl Prediabetes 100-125 Diabetes >/= 126 Performed By: #### C BC, LIPD, TSH reflex FT4, URIC, CMP #### [facility] [address], [place] [id number] Potassium [Moles/Vol] 5.5 mmol/L Normal 3.5-5.[address] [facility] Specialist Comment on above: Performed By: #### C BC, LIPD, TSH reflex FT4, URIC, CMP #### [facility] [address], [place] [id number] Protein [Mass/Vol] 7.4 g/dL Normal 6.1-8.1 [facility] [facility] Comment on above: Performed By: #### C BC, LIPD, TSH reflex FT4, URIC, CMP #### [facility] [address], [place] [id number] Sodium [Moles/Vol] 141 mmol/L Normal 135-146 [facility] [employer] Comment on above: Performed By: #### C BC, LIPD, TSH reflex FT4, URIC, CMP #### [facility] [address], [place] [id number] Urea nitrogen [Mass/Vol] 31 mg/dL High 7- [facility] Specialist Comment on above: Performed By: #### C BC, LIPD, TSH reflex FT4, URIC, CMP #### [facility] [address], [place] [id number] Lipid Panelon 03-09-2021 Cholesterol [Mass/Vol] 138 mg/dL Normal 125-200 No [facility] Specialist Comment on above: Result Comment: Low risk < 200mg/dL Borderline risk 201-239 mg/dl High risk > or equal to 240 Performed By: #### C BC, LIPD, TSH reflex FT4, URIC, CMP #### [facility] [address], [place] [id number] Cholesterol in HDL [Mass/Vol] 38 mg/dL Low >40 [facility] Specialist Comment on above: Result Comment: High Cardiovascular Risk HDL <40 mg/dL Low Cardiovascular Risk HDL > or equal to 60 mg/dl Performed By: #### C BC, LIPD, TSH reflex FT4, URIC, CMP #### [facility] [address], [place] [id number] Cholesterol in LDL [Mass/Vol] 77 mg/dL Normal [facility] Specialist Comment on above: Result Comment: LDL ATP III CLASSIFICATION LDL less than 100 mg/dl Optimal LDL 100-129 mg/dl Near or above optimal LDL 130-159 Borderline high LDL 160-189 High LDL greater than 189 mg/dl Very High Performed By: #### C BC, LIPD, TSH reflex FT4, URIC, CMP #### [facility] [address], [place] [id number] Cholesterol in VLDL [Mass/Vol] 23 mg/dL Normal [facility] [employer] Comment on above: Performed By: #### C BC, LIPD, TSH reflex FT4, URIC, CMP #### [facility] [address], [place] [id number] Cholesterol.total/Chol esterol in HDL [Mass ratio] 4 {ratio} Normal [facility] Specialist Comment on above: Performed By: #### C BC, LIPD, TSH reflex FT4, URIC, CMP #### [facility] [address] [place], [place] [id number] Triglyceride [Mass/Vol] 117 mg/dL Normal 30-150 [facility] [employer] Comment on above: Result Comment: TRIG ATPIII CLASSIFICATIONS TRIG less than 150 mg/dl Normal TRIG 150-199 mg/dl Borderline High TRIG 200-500 mg/dl High TRIG greather than 500 mg/dl Very High Performed By: #### C BC, LIPD, TSH reflex FT4, URIC, CMP #### [facility] [address], [place] [id number] TSH w/ Reflex to Free T4on 1 05-10-2020 TSH 1.330 uIU/mL Normal 0.400-4.50 0 [facility] [employer] Comment on above: Performed By: #### C BC, LIPD, TSH reflex FT4, URIC, CMP #### [facility] [address], [place] [id number] Uric Acidon 03-09-2021 URIC 8.1 mg/dL High 4.0-8.0 [facility] Specialist Comment on above: Result Comment: Refe rence range change 02/18/2017. Prior reference range F 2.4-5.7mg/dL. M 3.4-7.0 mg/dL. Performed By: #### C BC, LIPD, TSH reflex FT4, URIC, CMP #### [facility] [address], [place] [id number] [facility] CARDIAC STRESS/REST INJE CTIONon 08-28-2019 [facility] CARDIAC STRESS/REST INJECTION Patient Name: TAMMY WU STUDY: MYOCARDIAL PERFUSION STRESS TEST WITH LEXISCAN Performing facility: [facility], [address] [place] [address], [address], [place] [address] [facility] Provider: Pawan Dolan MD, FACC PCP: Dr. Nico Medina Supervising provider: Norma Cristina MD, [facility] INDICATION: Chest Pain; DAVID; HISTORY: Gender: M; Age: 69 y/o ; Height: 172.72 cm; Weight: 045.6227769 kg. High Cholesterol; Diabetes; Family HX CAD; HTN; Chest Pain; SOB; Fatigue; Dizziness Quit smoking 20 years ago. COMPARISON: No comparison. ACCESSION NUMBER(S): [id number]; [id number]; [id number] ORDERING CLINICIAN: COLIN DOLAN TECHNIQUE: TWO DAY protocol. Stress injection: Date:08/28/2019, 35.8 mCi of Myoview IV 20 seconds after rapid injection of Lexiscan. Rest injection: Date: 08/29/2019, 35.5 mCi of Myoview IV at rest. The patient had a rapid injection of 0.4 mg of Lexiscan IV over 10 seconds. Imaging was performed by gated tomographic technique. Reason for Lexiscan: Back pain STRESS TEST DATA: Resting heart rate was 58 BPM. Resting blood pressure was 154/78 mmHg. Peak blood pressure was 160/62 mmHg. Peak heart rate was 65 BPM. TEST TERMINATED DUE TO: Protocol completed FINDINGS: STRESS TEST RESULTS: Resting electrocardiogram revealed sinus bradycardia. There were no significant ischemic ECG changes or dysrhythmias. The patient did not have chest pains/symptoms during procedure. There was a normal recovery phase. IMAGING RESULTS: Image quality was good. Rest and stress tomographic images were reviewed and revealed normal perfusion without evidence of ischemia, myocardial infarction, or left ventricular dilatation with stress. Overall left ventricular systolic function appeared to be normal without regional wall motion abnormalities. Ejection fraction was 64%. TID is 0.79 and is normal. There was no evidence of attenuation artifact. IMPRESSION: Normal Lexiscan Myoview cardiac perfusion stress test. No evidence of ischemia or myocardial infarction by perfusion imaging. Normal left ventricular systolic function, ejection fraction 60%. No previous studies are available for comparison. Electronically signed by: NORMA CRISTINA MD Normal [facility] Vital Signs Date Time Vital Sign Value Performing Clinician Facility 01-13-2024 10:33-0400 Diastolic blood pressure 85 mm[Hg] Ro Cadena MD Work Phone[facility] 01-13-2024 10:33-0400 Systolic blood pressure 160 mm[Hg] Ro Cadena MD Work Phone: [facility] 01-13-2024 10:07-0400 Body height 170.2 cm Ro Cadena MD Work Phone: [facility] 01-13-2024 10:07-0400 Body mass index (BMI) [Ratio] 49.09 kg/m2 Ro Cadena MD Work Phone: [facility] 01-13-2024 10:07-0400 Body weight 142.16 kg Ro Cadena MD Work Phone: [facility] 01-13-2024 10:07-0400 Heart rate 60 /min Ro Cadena MD Work Phone: [facility] 03-24-2023 07:25-0500 Body temperature 97.7 [degF] Sera Calabrese MD Work Phone: [facility] 03-24-2023 07:25-0500 Diastolic blood pressure 75 mm[Hg] Sera Calabrese MD Work Phone: [facility] 03-24-2023 07:25-0500 Heart rate 51 /min Sera Calabrese MD Work Phone: [facility] 03-24-2023 07:25-0500 Respiratory rate 18 /min Sera Calabrese MD Work Phone: [facility] 03-24-2023 07:25-0500 SaO2% (BldA) [Mass fraction] 95 % Sera Calabrese MD Work Phone: [facility] 03-24-2023 07:25-0500 Systolic blood pressure 149 mm[Hg] Sera Calabrese MD Work Phone: [facility] 03-24-2023 05:49-0500 Body height 170.2 cm Sera Calabrese MD Work Phone: [facility] 03-24-2023 05:49-0500 Body mass index (BMI) [Ratio] 46.23 kg/m2 Sera Calabrese MD Work Phone: [facility] 03-24-2023 05:49-0500 Body weight 133.9 kg Sera Calabrese MD Work Phone: [facility] 09-08-2022 10:06-0400 Body height 170.18 cm Kojo Medina Work Phone: [facility] [address] DO Work Phone: 09-08-2022 10:06-0400 Body mass index (BMI) [Ratio] 46.52 kg/m2 Kojo Medina Work Phone: [facility] 600 DO Work Phone: 09-08-2022 10:06-0400 Body surface area Derived from formula 2.39 m2 Kojo Medina Work Phone: [facility] [facility] 600 DO Work Phone: 09-08-2022 10:06-0400 Body weight 134.72 kg Kojo Medina Work Phone: [facility] 600 DO Work Phone: 09-08-2022 10:06-0400 Diastolic blood pressure 70 mm[Hg] Kojo Medina Work Phone: [facility] 600 DO Work Phone: 09-08-2022 10:06-0400 Heart rate 40 /min Kojo Medina Work Phone: [facility] 600 DO Work Phone: 09-08-2022 10:06-0400 Systolic blood pressure 120 mm[Hg] Kojo Medina Work Phone: [facility] 600 DO Work Phone: 07-15-2022 11:00-0400 Body height 172.72 cm [employer] Other [employer] Other 07-15-2022 11:00-0400 Body mass index (BMI) [Ratio] 45 kg/m2 [employer] Other [employer] Other 07-15-2022 11:00-0400 Body weight 134.27 kg [employer] Other [employer] Other 07-15-2022 11:00-0400 Diastolic blood pressure 86 mm[Hg] [employer] Other [employer] Other 07-15-2022 11:00-0400 Systolic blood pressure 132 mm[Hg] [employer] Other [employer] Other 06-21-2022 11:00-0400 Body height 172.72 cm [employer] Other [employer] Other 06-21-2022 11:00-0400 Body mass index (BMI) [Ratio] 45 kg/m2 [employer] Other [employer] Other 06-21-2022 11:00-0400 Body weight 134.27 kg [employer] Other [employer] Other 06-21-2022 11:00-0400 Diastolic blood pressure 68 mm[Hg] [employer] Other [employer] Other 06-21-2022 11:00-0400 Systolic blood pressure 168 mm[Hg] Karime Caraballo Other [employer] Other 03-22-2022 12:00-0500 Diastolic blood pressure 69 mm[Hg] II Kojo Medina Work Phone: [facility] 03-22-2022 12:00-0500 Heart rate 57 /min II Kojo Medina Work Phone: [facility] 03-22-2022 12:00-0500 Respiratory rate 18 /min II Kojo Medina Work Phone: [facility] 03-22-2022 12:00-0500 SaO2% (BldA) [Mass fraction] 94 % II Kojo Medina Work Phone: [facility] 03-22-2022 12:00-0500 Systolic blood pressure 126 mm[Hg] II Kojo Medina Work Phone: [facility] 03-22-2022 08:00-0500 Body temperature 97.6 [degF] II Kojo Medina Work Phone: [facility] 03-22-2022 06:00-0500 Body weight 137.4 kg II Kojo Medina Work Phone: [facility] 03-21-2022 20:19-0500 Body height 170.18 cm II Kojo Medina Work Phone: [facility] 03-21-2022 18:26-0500 Diastolic blood pressure 84 mm[Hg] II Kojo Medina Work Phone: [facility] 03-21-2022 18:26-0500 Heart rate 81 /min II Kojo Medina Work Phone: [facility] 03-21-2022 18:26-0500 Respiratory rate 18 /min II Kojo Medina Work Phone: [facility] 03-21-2022 18:26-0500 SaO2% (BldA) [Mass fraction] 95 % II Kojo Medina Work Phone: [facility] 03-21-2022 18:26-0500 Systolic blood pressure 190 mm[Hg] II Kojo Medina Work Phone: [facility] 03-21-2022 11:45-0500 Body height 170.18 cm II Kojo Medina Work Phone: [facility] 03-21-2022 11:45-0500 Body weight 140 kg II Kojo Medina Work Phone: [facility] 03-21-2022 11:42-0500 Body temperature 98.1 [degF] II Kojo Medina Work Phone: [facility] 03-17-2022 16:57-0500 Body height 170.18 cm Colin Dolan MD Work Phone: [facility] [address] DO Work Phone: 03-17-2022 16:57-0500 Body mass index (BMI) [Ratio] 48.55 kg/m2 Colin Dolan MD Work Phone: [facility] 250 DO Work Phone: 03-17-2022 16:57-0500 Body surface area Derived from formula 2.44 m2 Colin Dolan MD Work Phone: [facility] 250 DO Work Phone: 03-17-2022 16:57-0500 Body weight 140.62 kg Colin Dolan MD Work Phone: [facility] 250 DO Work Phone: 03-17-2022 16:57-0500 Diastolic blood pressure 60 mm[Hg] Colin Dolan MD Work Phone: [facility] 250 DO Work Phone: 03-17-2022 16:57-0500 Heart rate 60 /min Colin Dolan MD Work Phone: [facility] 250 DO Work Phone: 03-17-2022 16:57-0500 Systolic blood pressure 138 mm[Hg] Colin Dolan MD Work Phone: [facility] [address] DO Work Phone: 03-17-2022 14:37-0500 Body height 170.18 cm Colin Dolan MD Work Phone: [facility] [address] DO Work Phone: 03-17-2022 14:37-0500 Body mass index (BMI) [Ratio] 48.55 kg/m2 Colin Dolan MD Work Phone: [facility] 250 DO Work Phone: 03-17-2022 14:37-0500 Body surface area Derived from formula 2.44 m2 Colin Dolan MD Work Phone: [facility] [address] DO Work Phone: 03-17-2022 14:37-0500 Body weight 140.62 kg Colin Dolan MD Work Phone: [facility] [address] DO Work Phone: 03-17-2022 14:37-0500 Diastolic blood pressure 68 mm[Hg] Colin Dolan MD Work Phone: [facility] [address] DO Work Phone: 03-17-2022 14:37-0500 Heart rate 60 /min Colin Dolan MD Work Phone: [facility] 250 DO Work Phone: 03-17-2022 14:37-0500 Systolic blood pressure 148 mm[Hg] Colin Dolan MD Work Phone: [facility] [address] DO Work Phone: 07-10-2021 11:09-0400 Blood Pressure Location Rajeev PATRICE [facility] 07-10-2021 11:09-0400 Diastolic blood pressure 70 mm[Hg] Rajeev IBRAHIM [facility] 07-10-2021 11:09-0400 Heart rate 88 /min Rajeev IBRAHIM [facility] 07-10-2021 11:09-0400 Respiratory rate 16 /min Rajeev IBRAHIM [facility] 07-10-2021 11:09-0400 Systolic blood pressure 120 mm[Hg] Rajeev IBRAHIM [facility] Encounters Encounter Date Encounter Type Care Provider Facility Start: 01-13-2024 End: 01-13-2024 Office outpatient visit 25 minutes Ro Cadena MD Work Phone: [facility] Comment on above: Benign essential hyp ertension (Primary Dx); Mixed hyperlipidemia; BMI 45.0-49.9, adult (Multi); Sinus bradycardia; Former smoker; White coat syndrome with hypertension Start: 01-13-2024 End: 01-13-2024 ambulatory [facility] Start: 12-21-2023 End: 12-21-2023 ambulatory KOJO MEDINA Not Available Start: 10-19-2023 End: 10-19-2023 ambulatory KOJO MEDINA Not Available Start: 10-10-2023 End: 10-10-2023 ambulatory COLIN Longoria [facility] Start: 08-11-2023 End: 08-11-2023 ambulatory ELIZABETH DANGELO Not Available Start: 08-02-2023 End: 08-03-2023 Pre-admission assessment TAMMY MEDINA [facility] Start: 07-25-2023 End: 07-25-2023 ambulatory KOJO MEDINA Not Available Start: 07-22-2023 End: 07-23-2023 ambulatory Rajeev R PATRICE Facility:[facility] Start: 07-22-2023 End: 07-22-2023 Patient encounter procedure Rajeev IBRAHIM [facility] Start: 03-24-2023 End: [facility] Start: 03-24-2023 End: 03-24-2023 Subsequent hospital visit by physician Sera Calabrese MD Work Phone: [facility] [place] Comment on above: Carpal tunnel syndro me, right upper limb (Primary Dx) Start: 03-21-2023 End: 03-22-2023 ambulatory [facility] Start: 03-21-2023 End: 03-21-2023 Office outpatient new 45 minutes Sera Calabrese MD Work Phone: [facility] Comment on above: Carpal tunnel syndro me of right wrist (Primary Dx) Start: 03-03-2023 End: 03-03-2023 ambulatory KOJO MEDINA Not Available Start: 09-08-2022 Office outpatient vi sit 15 minutes Kojo Medina Work Phone: [facility] 600 DO Work Phone: Start: 09-08-[address] Kojo Medina II Facility: Start: 08-24-2022 ambulatory NARENDRANATH LAKSHMIPATHY . Facility:[facility] Start: 08-14-2022 End: 08-15-[address] KOJO MEDINA Facility:[facility] Start: 08-12-2022 End: 08-13-2022 ambulatory NARENDRANATH LAKSHMIPATHY . Facility:[facility] Start: 07-20-2022 End: 07-20-2022 ambulatory NARENDRANATH LAKSHMIPATHY . Facility:[facility] Start: 07-15-2022 End: 07-15-2022 ambulatory Karime [employer] Other [employer] Other Start: 07-15-2022 Office outpatient vi sit 15 minutes Karime Caraballo [facility] Start: 07-08-2022 End: 07-09-2022 ambulatory NARENDRANHOPE LAKSHMIPATHY . Facility:[facility] Start: 07-02-2022 End: 07-03-[address] TAMMY DANIELLE Facility:[facility] Start: 06-21-2022 End: 06-21-2022 ambulatory Karime Caraballo Other [employer] [employer] Other Start: 06-21-2022 Office outpatient ne w 45 minutes Karime Caraballo [facility] Start: 06-15-2022 End: 06-16-2022 ambulatory JOYA MCRAE Facility:[facility] Start: 05-04-2022 End: 05-05-[address] AGUILAR SWEENEY . Facility:[facility] Start: 04-30-2022 End: 05-01-[address] KOJO MEDINA Facility:[facility] Start: 03-22-[address] Kojo Medina II Facility:90 Start: 03-21-2022 End: 03-22-2022 ambulatory Jakub Juliana Facility:[facility] Start: 03-21-2022 End: 03-22-2022 Evaluation and management of inpatient II Kojo Medina Work Phone: [facility] [place] Start: 03-21-2022 End: 03-22-2022 observation encounter II Kojo Medina Work Phone: [facility] Work Phone: Start: 03-17-2022 Office outpatient vi sit 25 minutes Colin Dolan MD Work Phone: [facility] 250 DO Work Phone: Start: 03-17-[address] Kojo Medina II Facility: Start: 10-19-2021 End: 10-20-[address] KOJO MEDINA Facility:[facility] Start: 07-10-2021 End: 07-10-2021 Patient encounter procedure Rajeev John PATRICE [facility] Procedures Date Procedure Procedure Detail Performing Clinician Start: 01-13-2024 Ecg routine ecg w/le ast 12 lds w/i&r Ro Cadena MD Work Phone: Start: 03-24-2023 DISCHARGE PATIENT SERA CALABRESE Start: 03-24-2023 FULL CODE SERA CALABRESE Start: 03-24-2023 PLACE IN OUTPATIENT/ HOSPITAL AMBULATORY SURGERY SERA CALABRESE Start: 03-21-2022 Plain chest X-ray II Iban Medina Work Phone: Start: 10-07-2015 Cystoscopy Rajeev SANABRIA Start: 07-29-2014 Colonoscopy Ro rehman MD Work Phone: Start: 09-18-2012 Cystoscopy Rajeev JOLENE SANABRIA Start: 08-07-2010 Cystoscopy Rajeev SANABRIA Start: 09-02-2002 Transrectal biopsy o f prostate using ultrasound guidance Rajeev IBRAHIM Achillotomy Colin Dolan MD Work Phone: Arthroplasty of knee Colin Dolan MD Work Phone: Colonoscopy Colin Dolan MD Work Phone: Comment on above: 04Apr2017; History of hernia repair Megan IBRAHIM Operation on lens Rajeev JOLENE SANABRIA Repair of musculoten dinous cuff of shoulder Colin Dolan MD Work Phone: Surgical procedure on thorax Colin Dolan MD Work Phone: Total replacement of hip Jose Dolan MD Work Phone: Total replacement of right hip joint Rajeev IBRAHIM Plan of Treatment Date Care Activity Detail Author Start: 10-12-2024 End: 10-12-2024 Patient encounter procedure 10/12/2024 10:20 AM EDT Office Visit [facility] [address] [facility] [address] [place] [address] Ro Cadena MD [address] [facility] [address] [place] [address] [facility] Start: 07-29-2024 Screening for malignant neoplasm [facility] Start: 07-24-2024 Urine screening for protein Diabetes: Urine Protein Screening [facility] Start: 12-04-2023 COVID-19 Vaccine ( season) COVID-19 Vaccine () [facility] Start: 12-04-2023 Influenza vaccination Influenza Vaccine (#1) [facility] Start: 09-07-2023 FUV, Provider: Colin Dolan, Status: Pen, Time: 9:50 AM FUV, Provider: Colin Dolan, Status: Pen, Time: 9:50 AM [facility] 600 DO Work Phone: Start: 09-07-2023 End: 09-07-2023 Patient encounter procedure 09/07/2023 9:50 AM EDT Office Visit [place] [address] [facility] [address] [place] [id number] Colin Dolan MD [address] [facility] [address] [place] [address] [facility] Start: 04-08-2023 End: 04-08-2023 Patient encounter procedure 04/08/2023 11:15 AM EST Office Visit [facility] [address] [place] [address] Sera Parikh MD [address] [facility] [place] [address] [facility] Start: 03-15-2023 COVID-19 Vaccine (4 - Moderna series) COVID-19 Vaccine (4 - Moderna series) [facility] Start: 12-15-2022 Glaucoma screening Diabetes: Retinopathy Screening [facility] Start: 09-08-2022 FUV, Provider: Colin Dolan, Status: Pen, Time: 9:50 AM FUV, Provider: Colin Dolan, Status: Pen, Time: 9:50 AM [facility] 250 DO Work Phone: Start: 04-07-2022 NURSEVST, Provider: DEREK GATES ICER MACHINE OPERATOR 1,[id number], Status: Pen, Time: 1:30 PM NURSEVST, Provider: DEREK GATES ICER MACHINE OPERATOR 1,[id number], Status: Pen, Time: 1:30 PM [facility] 250 DO Work Phone: Start: 03-22-2022 [facility] Start: 03-21-2022 Referral to shuttle van driver [facility] Start: 03-21-2022 Hospital admission [facility] Start: 2015 Abdominal aortic aneurysm screening Abdominal Aortic Aneurysm (AAA) Screening [facility] Start: 2010 Hepatitis B Vaccines (1 of 3 - Risk 3-dose series) Hepatitis B Vaccines (1 of 3 - Risk 3-dose series) [facility] Start: 2010 RSV patients and/or patients aged 60+ years (1 - 1-dose 60+ series) RSV patients and/or patients aged 60+ years (1 - 1-dose 60+ series) [facility] Start: 1972 DTaP/Tdap/Td Vaccines (1 - Tdap) DTaP/Tdap/Td Vaccines (1 - Tdap) [facility] Start: 1969 Hepatitis A Vaccines (1 of 2 - Risk 2-dose series) Hepatitis A Vaccines (1 of 2 - Risk 2-dose series) [facility] Start: 1968 Hepatitis C screening Hepatitis C Screening [facility] Start: 1950 Hemoglobin A1c measurement Diabetes: Hemoglobin A1C [facility] Start: 1950 Lipid panel Lipid Panel [facility] Start: 1950 Medicare Annual Wellness Visit Medicare Annual Wellness Visit (AWV) [facility] Start: 1950 Screening for malignant neoplasm of colon [facility] Patient referral [facility] Work Phone: Immunizations Immunization Date Immunization Notes Care Provider Fa cility 02-04-2023 influenza virus vaccine, unspecified formulation Ro Cadena MD Work Phone: [facility] Work Phone: 01-18-2023 Influenza, Seasonal, Quadrivalent, Adjuvanted Ro Cadena MD Work Phone: [facility] Work Phone: 01-18-2023 Pfizer COVID-19 vaccine, 12 years and older, (30mcg/0.3mL) (Comirnaty) Ro Cadena MD Work Phone: [facility] Work Phone: 01-23-2022 influenza, high dose seasonal, preservative-free Ro Cadena MD Work Phone: [facility] Work Phone: 01-22-2022 Fluad Quadrivalent 0 .5 ML Intramuscular Prefilled Syringe Colin [facility] Work Phone: 12-21-2021 zoster vaccine recombinant [facility] Work Phone: 03-12-2021 Fluad Quadrivalent 0 .5 ML Intramuscular Prefilled Syringe Colin Dolan MD Work Phone: [facility] 250 DO Work Phone: 02-09-2021 Moderna COVID-19 Vaccine 100 MCG/0.5ML Intramuscular Suspension Colin Dolan MD Work Phone: [facility] 250 DO Work Phone: 02-02-2021 SARS-CoV-2 (COVID-19 ) Ad26 vaccine, recombinant [facility] 12-02-2020 zoster vaccine recombinant Colin Dolan MD Work Phone: [place] [address] DO Work Phone: 06-26-2020 Moderna COVID-19 Vaccine 100 MCG/0.5ML Intramuscular Suspension Colin Dolan MD Work Phone: [place] [address] DO Work Phone: 06-02-2020 SARS-CoV-2 (COVID-19 ) Ad26 vaccine, recombinant [facility] 05-29-2020 Moderna COVID-19 Vaccine 100 MCG/0.5ML Intramuscular Suspension Colin Dolan MD Work Phone: [facility] 250 DO Work Phone: 05-05-2020 SARS-CoV-2 (COVID-19 ) Ad26 vaccine, recombinant Rajeev Stream [facility] 01-03-2020 influenza virus vaccine, unspecified formulation Colin Dolan MD Work Phone: [facility] 250 DO Work Phone: 01-03-2020 influenza, seasonal, injectable Mourhaf Traboulssi MD Work Phone: [facility] Work Phone: 02-19-2019 influenza, high dose seasonal, preservative-free Colin Dolan MD Work Phone: [place] [address] DO Work Phone: 01-02-2019 influenza virus vaccine, unspecified formulation Colin Dolan MD Work Phone: [place] [address] DO Work Phone: 01-02-2019 influenza, injectabl e, quadrivalent, preservative free Ro Cadena MD Work Phone: [facility] Work Phone: 01-25-2018 Flu vaccine, quadrivalent, high-dose, preservative free, age 65y+ (FLUZONE) Ro Cadena MD Work Phone: [facility] Work Phone: 01-25-2018 influenza, high dose seasonal, preservative-free Colin Dolan MD Work Phone: [place] [address] DO Work Phone: 03-29-2017 seasonal influenza, intradermal, preservative free Colin Dolan MD Work Phone: [facility] 04-04-2016 pneumococcal conjuga te vaccine, 13 valent Colin Dolan MD Work Phone: [place] [address] DO Work Phone: 01-27-2016 influenza, injectabl e, quadrivalent, contains preservative Colin Dolan MD Work Phone: [place] [address] DO Work Phone: 01-27-2016 influenza, injectabl e, quadrivalent, preservative free Ro Cadena MD Work Phone: [facility] Work Phone: 01-07-2016 pneumococcal polysaccharide vaccine, 23 valsherri Cadena MD Work Phone: [facility] Work Phone: 07-29-2015 pneumococcal polysaccharide vaccine, 23 valsherri Cadena MD Work Phone: [facility] Work Phone: 04-18-2013 seasonal influenza, intradermal, preservative free Ro Cadena MD Work Phone: [facility] Work Phone: Payers Date Payer Category Payer Self-pay 2021 Medicare [id number] 1959 Private Health Insurance 101 [id number] 1950 Unknown [id number] 2.16.84 0.1.107066.3.579.2.593 1950 Unknown [id number] 2.16.84 0.1.466621.3.579.2.593 1950 Unknown [id number] 2.16.84 0.1.898919.3.579.2.593 1950 Unknown [id number] 2.16.84 0.1.343986.3.579.2.593 1950 Unknown [id number] 2.16.84 0.1.718997.3.579.2.593 1950 Unknown [id number] 2.16.84 0.1.351226.3.579.2.593 1950 Unknown [id number] 2.16.84 0.1.671474.3.579.2.593 1950 Unknown [id number] 2.16.84 0.1.031317.3.579.2.593 1950 Unknown [id number] 2.16.84 0.1.841374.3.579.2.593 1950 Unknown [id number] 2.16.84 0.1.176134.3.579.2.593 1950 Unknown [id number] 2.16.84 0.1.214139.3.579.2.593 1950 Unknown [id number] 2.16.840.1.222365.3.579.2.356 1950 Unknown [id number] 2.16.840.1.184293.3.579.2.356 1950 Unknown [id number] 2.16.840.1.953205.3.579.2.356 1950 Unknown [id number] 2.16.840.1.362762.3.579.2.1246 1950 Unknown [id number] 2.16.840.1.541064.3.579.2.1246 1950 Unknown [id number] 2.16.840.1.102307.3.579.2.727 1950 Unknown [id number] 2.16.840.1.329083.3.579.2.1259 1950 Unknown [id number] 2.16.840.1.511646.3.579.2.1259 1950 Unknown [id number] 2.16.840.1.556004.3.579.2.1259 1950 Unknown [id number] 2.16.840.1.169867.3.579.2.1259 1950 Unknown [id number] 2.16.840 .1.679938.3.579.2.1259 1950 Unknown [id number] 2.16.840.1.331705.3.579.2.1244 1950 Unknown [id number] 2.16.840.1.485335.3.579.2.1244 Unknown [employer] Unknown [facility] [id number] Unknown [id number] 2.16.840.1.661295.3.579.2.531 Social History Date Type Detail Facility Start: 07-10-2021 End: 10-10-2023 Tobacco smoking status Ex-smoker (finding) [facility] Tobacco smoking status Never [facility] Start: 03-24-2023 End: 10-10-2023 Sex Assigned At Male [facility] Start: 03-22-2023 End: 10-10-2023 Daily caffeine consumption, 1 serving a day Daily caffeine consumption, 1 serving a day [facility] 250 DO Work Phone: Comment on above: 2-3 drinks a month; quit smoking 20+year s ago; Start: 1950 Sex Assigned At Male [facility] Tobacco smoking status NHIS Tobacco smoking consumption unknown [facility] Work Phone: Start: 1950 Sex Assigned At Not on file [facility] Work Phone: Start: 03-11-2023 End: 03-24-2023 Exposure to SARS-CoV-2 (event) Not sure [facility] Start: 04-04-1969 End: 04-04-1999 History of tobacco use Current smoker [facility] Work Phone: Start: 04-04-1969 End: 04-04-1999 History of tobacco use Cigarette Smoker [facility] Work Phone: Start: 03-22-2023 End: 10-10-2023 Tobacco use and exposure Smokeless tobacco non-user [facility] Work Phone: Start: 03-24-2023 End: 01-13-2024 Alcohol intake Current drinker of alcohol (finding) [facility] Work Phone: Goals Date Patient Goal Desired Activity /State Functional Status Date Assessment Result Facility 03-22-2022 Functional status Patient at Baseline [facility] Work Phone: Mental Status Date Assessment Result Facility 03-22-2022 Cognitive function Cognitive Sta tus Patient at Baseline [facility] Work Phone: Clinical Notes 07-10-2021 to 01-13-2024 Ro Cadena MD - 01/13/2024 10:10 AM EDTPatient InstructionsOp Note - Sera Calabrese MD - 03/24/2023 7:07 AM ESTOp Note - Sera Calabrese MD - 03/24/2023 7:07 AM EST Note Date & Type Note Facility 01-13-2024 History of Present illness Narrative Subjective Tammy Wu is a 73 y.o. male Chief Complaint Follow-up HPI Patient is here for follow-up continue management for hypertension, hyperlipidemia, obesity and documentation of sinus bradycardia. He is a former patient of Dr. Dolan. When he was seen last time his heart rate was 40. His Coreg was cut down by half. Today he denies any complaint of chest pain, palpitation, lightheadedness, dizziness or syncope. His EKG today showed junctional with retrograde P wave with heart rate around 57. Patient denies any change in cardiac status or symptoms. Assessment 1. Essential hypertension with major white coat hypertension. Patient reports his blood pressure at home in the 130-140 2. 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 Morbid obesity 4. Diabetes mellitus 5. Hyperlipidemia Plan 1. I advised the patient to cut down his Coreg to 6.25 twice daily and to increase his amlodipine to 10 mg daily if blood pressure remains elevated will consider adding AB inhibitors considering his diabetic 2. The patient is scheduled to repeat his lab work 3. I discussed with him risk factor modification 4. I encouraged him to consider treatment with Ozempic or Mounjaro considering the beneficial impact on weight Review of Systems All other systems reviewed and are negative. Vitals: 01/13/24 1007 01/13/24 1033 BP: (!) 192/72 160/85 BP Location: Right arm Patient Position: Sitting Pulse: 60 Weight: 142 kg (313 lb 6.4 oz) Height: 1.702 m (5' 7 ) Objective Physical Exam Constitutional: Appearance: Normal appearance. HENT: Nose: Nose normal. Neck: Vascular: No carotid bruit. Cardiovascular: Rate and Rhythm: Normal rate. Pulses: Normal pulses. Heart sounds: Normal heart sounds. Pulmonary: Effort: Pulmonary effort is normal. Abdominal: General: Bowel sounds are normal. Palpations: Abdomen is soft. Musculoskeletal: General: Normal range of motion. Cervical back: Normal range of motion. Right lower leg: No edema. Left lower leg: No edema. Skin: General: Skin is warm and dry. Neurological: General: No focal deficit present. Mental Status: He is alert. Psychiatric: Mood and Affect: Mood normal. Behavior: Behavior normal. Thought Content: Thought content normal. Judgment: Judgment normal. Allergies Animal dander and Metformin hcl Current Medications Current Outpatient Medications: atorvastatin (Lipitor) 40 mg tablet, Take 1 tablet (40 mg) by mouth once daily., Disp: , Rfl: Bydureon BCise 2 mg/0.85 mL auto-injector, Inject 1 Syringe under the skin every 7 days., Disp: , Rfl: cholecalciferol (Vitamin D3) 25 MCG (1000 UT) capsule, Take 1 capsule (25 mcg) by mouth once daily., Disp: , Rfl: ibuprofen 200 mg tablet, Take 2 tablets (400 mg) by mouth every 6 hours if needed for mild pain (1 - 3)., Disp: , Rfl: insulin NPH and regular human (NovoLIN 70/30 U-100 Insulin) 100 unit/mL (70-30) injection, Inject 65 Units under the skin 2 times a day before meals., Disp: , Rfl: multivitamin tablet, Take 1 tablet by mouth once daily., Disp: , Rfl: spironolactone (Aldactone) 25 mg tablet, Take 1 tablet by mouth once daily, Disp: 90 tablet, Rfl: 3 triamterene-hydrochlorothiazid (Maxzide-25) 37.5-25 mg tablet, Take 1 tablet by mouth once daily., Disp: , Rfl: amLODIPine (Norvasc) 10 mg tablet, Take 1 tablet (10 mg) by mouth once daily., Disp: 90 tablet, Rfl: 3 carvedilol (Coreg) 6.25 mg tablet, Take 1 tablet (6.25 mg) by mouth 2 times daily (morning and late afternoon)., Disp: , Rfl: Assessment/Plan 1. Benign essential hypertension Follow Up In Cardiology carvedilol (Coreg) 6.25 mg tablet amLODIPine (Norvasc) 10 mg tablet 2. Mixed hyperlipidemia Follow Up In Cardiology 3. BMI 45.0-49.9, adult (Multi) 4. Sinus bradycardia ECG 12 Lead 5. Former smoker 6. White coat syndrome with hypertension Scribe Attestation By signing my name below, I, Kelly Bello LPN, Scribe attest that this documentation has been prepared under the direction and in the presence of Ro Cadena MD. Provider Attestation - Scribe documentation All medical record entries made by the Scribe were at my direction and personally dictated by me. I have reviewed the chart and agree that the record accurately reflects my personal performance of the history, physical exam, discussion and plan. documented in this encounter [facility] Work Phone: 01-13-2024 Instructions Kelly Pina LPN - 01/13/2024 10:10 AM EDT Please bring all medicines, vitamins, and herbal supplements with you when you come to the office. Prescriptions will not be filled unless you are compliant with your follow up appointments or have a follow up appointment scheduled as per instruction of your physician. Refills should be requested at the time of your visit. BMI was above normal measurement. Current weight: 142 kg (313 lb 6.4 oz) Weight change since last visit (-) denotes wt loss 3.4 lbs Weight loss needed to achieve BMI 25: 154.1 Lbs Weight loss needed to achieve BMI 30: 122.3 Lbs Provided instructions on dietary changes Provided instructions on exercise. Reduce Coreg to 6.25 mg Increase Norvasc to 10 mg DASH diet documented in this encounter [facility] Work Phone: 03-24-2023 Miscellaneous Notes CARPAL TUNNEL RELEASE- LOCAL PREOPERATIVE DIAGNOSIS: RIGHT Carpal Tunnel Syndrome POSTOPERATIVE DIAGNOSIS: RIGHT Carpal Tunnel Syndrome PROCEDURE: RIGHT Open Carpal Tunnel Release ([id number]) SURGEON: SERA EUCEDA MD ANESTHESIA: Local. COMPLICATIONS: None. Patient Name: Tammy Wu Time: 7:22 AM 03/24/2023 Estimated Blood Loss: 0ml INDICATIONS FOR SURGERY: The patient has been treated for on-going carpal tunnel syndrome that has failed non-operative treatment. Surgical release was offered. Potential benefits include relief of paraesthesias and preventing progression of nerve dysfunction. Risks include bleeding, infection, nerve injury, tendon injury, persistent numbness & paraesthesias, and pillar pain. The patient understood and consented willingly to surgery. The patient also understood the recovery and rehabilitation process. DESCRIPTION OF PROCEDURE: The patient was brought to the operating room and identified by the surgical staff. The operative limb was also confirmed by the surgical staff. The operative site in the hand was injected with a local anesthetic for binta-operative pain control. Next, the median nerve in the wrist was injected with a local anesthestic for post-operative pain control. There was no anesthesiology staff present nor any administration of anesthetics through an IV during the case. The operative limb was then prepped and draped in standard sterile fashion. A 2cm longitudinal incision was placed in the inter-thenar valley of the hand in line with the third webspace. Diligent hemostasis was maintained with bipolar cautery. The superficial palmar fascia was cut in line with the skin incision. The transverse carpal ligament was identified. Once satisfied that the recurrent motor branch was not traversing the ligament it was released completely distally to the sentinel pad of fat and proximally past the wrist crease into the forearm. Once satisfied that the carpal tunnel and median nerve was completely decompressed the wound was washed. The incision was closed. A soft dressing was applied. The patient was taken to the recovery in stable condition. I was present for the entire length of the case. Sera Calabrese MD Reviewed medical history and current medications. Patient is having a local procedure and will arrive with his significant other. documented in this encounter [facility] Work Phone: 03-24-2023 Note Formatting of this n ote might be different from the original. CARPAL TUNNEL RELEASE- LOCAL PREOPERATIVE DIAGNOSIS: RIGHT Carpal Tunnel Syndrome POSTOPERATIVE DIAGNOSIS: RIGHT Carpal Tunnel Syndrome PROCEDURE: RIGHT Open Carpal Tunnel Release ([id number]) SURGEON: SERA EUCEDA MD ANESTHESIA: Local. COMPLICATIONS: None. Patient Name: Tammy Wu Time: 7:22 AM 03/24/2023 Estimated Blood Loss: 0ml INDICATIONS FOR SURGERY: The patient has been treated for on-going carpal tunnel syndrome that has failed non-operative treatment. Surgical release was offered. Potential benefits include relief of paraesthesias and preventing progression of nerve dysfunction. Risks include bleeding, infection, nerve injury, tendon injury, persistent numbness & paraesthesias, and pillar pain. The patient understood and consented willingly to surgery. The patient also understood the recovery and rehabilitation process. DESCRIPTION OF PROCEDURE: The patient was brought to the operating room and identified by the surgical staff. The operative limb was also confirmed by the surgical staff. The operative site in the hand was injected with a local anesthetic for binta-operative pain control. Next, the median nerve in the wrist was injected with a local anesthestic for post-operative pain control. There was no anesthesiology staff present nor any administration of anesthetics through an IV during the case. The operative limb was then prepped and draped in standard sterile fashion. A 2cm longitudinal incision was placed in the inter-thenar valley of the hand in line with the third webspace. Diligent hemostasis was maintained with bipolar cautery. The superficial palmar fascia was cut in line with the skin incision. The transverse carpal ligament was identified. Once satisfied that the recurrent motor branch was not traversing the ligament it was released completely distally to the sentinel pad of fat and proximally past the wrist crease into the forearm. Once satisfied that the carpal tunnel and median nerve was completely decompressed the wound was washed. The incision was closed. A soft dressing was applied. The patient was taken to the recovery in stable condition. I was present for the entire length of the case. Sera Calabrese MD [facility] Work Phone: 03-24-2023 Hospital Discharge instructions Radha Burt RN - 03/24/2023 7:03 AM EST Images from the original note were not included. Carpal Tunnel Syndrome Discharge Instructions About this topic Your median nerve starts in your neck and then runs down your lower arm into your hand. If this nerve is squeezed at the wrist area, you may feel pain. You may also have weakness, tingling, or numbness in your hand and wrist. Swelling in this area puts pressure on the nerve and causes the problems you are having. This is called carpal tunnel syndrome. The carpal tunnel is the small area in your wrist that the median nerve runs through. A tough band of tissues called a ligament holds everything in place over the carpal tunnel. Carpal tunnel syndrome is a very common health problem. It is most often caused by doing hand or wrist movements over and over. It can also be caused by using the lower arm muscles too much. Doctors often try different treatments. If these do not work, surgery may be needed. What care is needed at home? Ask your doctor what you need to do when you go home. Make sure you ask questions if you do not understand what the doctor says. This way you will know what you need to do. Rest your wrist and hand as much as possible. Do not do motions that make your problem worse. Place an ice pack or a bag of frozen peas wrapped in a towel over the painful part. Never put ice right on the skin. Do not leave the ice on more than 10 to 15 minutes at a time. Prop your hand on pillows to help with swelling. Wear a splint or wrist brace to keep your wrist from bending too much. It is a good idea to sleep with the brace on at night. What follow-up care is needed? Your doctor may ask you to make visits to the office to check on your progress. Be sure to keep these visits. Your doctor may send you for tests such as a nerve conduction study, electromyogram, ultrasound, MRI, or x-ray. Your doctor may send you to see a specialist or a surgeon. Your doctor may send you to physical therapy (PT). The PT will teach you exercises to help you get back your strength and motion. What drugs may be needed? The doctor may order drugs to: Help with pain and swelling, like ibuprofen. These are nonsteroidal anti-inflammatory drugs (NSAIDS). Help with pain, such as acetaminophen. The doctor may give you a shot of an anti-inflammatory drug called a corticosteroid. This will help with pain, swelling, and tingling. Talk with your doctor about the risks of this shot. Will physical activity be limited? You may need to rest your wrist for a while. You should not do physical activity that makes your health problem worse. Sometimes you have to do repeat movements with your hand for your job, sport, or hobby. You may have to change the way you do them or do them less often. What problems could happen? Long-term hand numbness or weakness [employer] weakness Loss of function in the hand Permanent nerve damage Wound infection after surgery What can be done to prevent this health problem? Avoid doing repeat movements with your wrist and hand, if you can. If you have to do repeat movements, take rest breaks often. If you sit at a computer, make sure your keyboard, mouse, desk, and chair are in the right positions so you do not put stress on the wrist. Think about using a special mouse and keyboard that are made to protect your wrist and hand. If you have an assembly job, try alternating tasks, if possible. Avoid holding your wrist and hand in the same position for too long. Wearing splints or fingerless compression gloves may help: Keep the wrist straight Keep the muscles warm and flexible Prevent swelling Do gentle stretching exercises before doing tough movements with your wrist and hands. Massage your wrists, palms, and back of the hands. When do I need to call the doctor? Signs of a very bad reaction. These include wheezing; chest tightness; fever; itching; bad cough; blue skin color; seizures; or swelling of face, lips, tongue, or throat. Go to the ER right away. Signs of infection. These include a fever of 100.4 F (38 C) or higher; chills; wound that will not heal; yellowish, greenish, or bloody discharge from a wound; or loss of feeling in the hand and wrist. More numbness in the hand [employer] is weaker documented in this encounter [facility] Work Phone: 03-24-2023 History and physical note Updated H&P Patient presents for local hand surgery. Prior notes, medication, PMH, PSH, allergies reviewed. PE CTAB RRR Abdomen soft Plan to proceed with elective surgery today All questions addressed [facility] Work Phone: 03-24-2023 History and physical note Updated H&P Patient presents for local hand surgery. Prior notes, medication, PMH, PSH, allergies reviewed. PE CTAB RRR Abdomen soft Plan to proceed with elective surgery today All questions addressed documented in this encounter [facility] Work Phone: 03-22-2023 Note Formatting of this n ote might be different from the original. Reviewed medical history and current medications. Patient is having a local procedure and will arrive with his significant other. [facility] Work Phone: 03-21-2023 History of Present illness Narrative Images from the original note were not included. History of Present Illness: Presents with right hand numbness. The symptoms have been present for months. The patient denies any inciting trauma. The numbness primarily involves the thumb, index finger, and long finger. There is minimal numbness in the small finger. The patient complains of intermittant, moderate hand pain which is worse at night. It causes frequent night awakenings. The patient presents due to worsening symptoms. This is progressively worsening and now present at all times. Review of Systems GENERAL: Negative for malaise, significant weight loss, fever MUSCULOSKELETAL: see HPI NEURO: Negative The patient's past medical history, family history, social history, and review of systems were reviewed. History is otherwise negative except as stated in the HPI. Physical Examination: General: Alert and oriented to person, place, and time. No acute distress and breathing comfortably: Pleasant and cooperative with examination. HEENT: Head is normocephalic and atraumatic. Neck: Supple, no visible swelling. Cardiovascular: No palpable tachycardia Lungs: No audible wheezing or labored breathing Abdomen: Nondistended. On musculoskeletal examination, the patient has full elbow range of motion. There is no tenderness to palpation about the lateral epicondyle. Tinels at the cubital tunnel and elbow flexion/compression are negative for ulnar nerve symptoms. In regards to the wrist, there is no obvious deformity. Range of motion is full in flexion, extension, pronation, and supination. Strength is 5/5 in flexion and extension. There is no tenderness to palpation about the 1st dorsal compartment, the 1st CMC joint, or the TFCC. Tinels at the carpal tunnel and [place] compression test are positive. The patient has subjective paresthesias in the median nerve distribution. Sensation and motor function are intact in the radial, and ulnar nerve distribution. There is no obvious thenar atrophy, and thenar strength is this is5/5. There is no intrinsic atrophy, and intrinsic strength is 5/5. All fingers are without triggering and are without pain over the A1 zen. The patient can make a full composite fist. The hand itself is warm and well perfused. The skin is intact throughout. The contralateral hand/wrist are normal to inspection, range of motion, stability, and strength. Imaging: N/a Assessment: Patient with right carpal tunnel syndrome. Plan: Surgery. Based on the history and physical exam, I believe that the patient has carpal tunnel syndrome. Given the duration/severity of symptoms and the failure of non-operative treatment, the patient wants to consider carpal tunnel release. The benefit of surgery would be to stop the progression of symptoms, with the hope that the symptoms would also resolve. The risks of surgery include, but are not limited to, infection, bleeding, nerve/vessel injury, pillar pain, continued symptoms, and anesthetic complications. The patient understands the risks/benefits and consented to the surgery. Prior to the procedure, I discussed obtaining an EMG/NCV study to document severity and to assess prognosis. Given their classic presentation, the patient prefers to go directly to surgery without additional electrodiagnostic testing. I have answered all questions regarding the surgery itself and the post-operative course. He will be in [place] so we will schedule a virtual postop visit in 2 weeks. Sera Euceda MD Orthopaedic Surgeon documented in this encounter [facility] Work Phone: 07-15-2022 Evaluation note Encounter Date Diagnosis Assessment Notes Jul, Degenerative disc disease, lumbar (ICD-10 - M51.36) Mr. Rahman has improved his radicular symptomsand is no longer having pain or weakness in either leg. has been doing stretches and had intake for physical therapy but has not had any sessions at this time. [facility] has a follow-up with Dr. Yu pain management for injection on Tuesday. I independently reviewed the MRI of the lumbar spine and [id number] with the patient and his which shows there is moderate diffuse osteophytes throughout at the L1 there is a ligamentum Flavum Hypertophy noted with mild bilateral foraminal stenosis right greater than left. Moderate to severe disc space narrowing and disc dissection at the L1-L2 L2-L3 there is moderate to severe disc space narrowing left greater than right with extensive endplate sclerosis. Moderate diffused disc with a left foraminal disc herniation perfusion type.Sever left foraminal stenosis. Advised patient to continue with current conservative therapy of aqua/physical therapy and pain management. Will follow-up in 6 months. 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 He feels most comfortable in the semi-recumbent position. Denies any change in bowel and bladder habits or new sensorimotor changes in the lower extremities. EXAM: Notable for patient having no clinical radiculopathy or myelopathy involving the lower extremities. Patient did have positive left sided FABERs sign with pain occurring in his left groin area. The patient had pain with lumbar facet loading maneuvers, occurred on the left side from L4 through S1 with associated myofascial spasm of the lumbar paravertebral muscles. IMPRESSION: 1. Our impression is patient appears to have pain secondary to left hip joint related pain clinically. 2. Lumbosacral spondylosis, clinically effecting the left side at L4-5, L5-S1. 3. Myofascial spasm. RECOMMENDATIONS: I have placed the patient on baclofen 10 mg pills, half a pill b.i.d.; ordered left hip films, and to proceed with diagnostic left L4-5, L5-S1 facet joint injection under fluoroscopic guidance. They agreed to proceed with the outlined plan. As part of providing excellent, safe, comprehensive care, the following was completed at our patient's visit: 1. A medication reconciliation and review to ensure accurate knowledge of current/active medications, including asking our patients to inform us about any [id number] medications or herbal remedies/nutritional supplements/alternative remedies. 2. A review to specifically ensure our patients have had annual screening for: elevated body mass index (BMI, see intake chart for exact total), tobacco use, screening for depression, and screening for unhealthy alcohol use. When screening is concerning, patients are provided with education and the specific recommendation to discuss the concerning health issue and treatment options with their primary care provider.[facility] [id number] Evaluation note * Encounter Date Diagnosis Assessment Notes Treatment Notes Treatment Clinical Notes Jun, Lumbar radiculopathy (ICD-10 - M54.16) I independently reviewed the x-ray of the lumbar spine which shows diffuse degenerative disc disease throughout the lumbar spine, bilateral foraminal narrowing facet degenerative changes and mild acquired spinal canal stenosis L2-3 and L3-4. Patient has history status post right hemilaminectomy at L4-5. Due to patient's current radicular symptoms and upon examination weakness of the bilateral lower extremities, significant history I will order MRI to rule out spinal cord compression or involvement. Patient has had significant history of conservative therapy, with pain management and physical therapy. Patient is not able to tolerate the home therapy. Will continue with pharmacotherapy, advised to continue with the zonsimaide,antiinfla matories, cyclobenzaprine and advise to use OTC lidocaine/therampath barbie. Will refer to [facility] and follow up in 6 weeks. Jun, Degenerative disc disease, lumbar (ICD-10 - M51.36) Jun, History of hemilaminectomy (ICD-10 - Z98.890) Jun, Encounter for screening for depression (ICD-10 - Z13.31) PHQ reviewed negative Jun, Other Medical decisio n making shows a new problem to me with further workup planned or suggested with the potential for extensive treatment options that were considered with the most applicable given this patient's situation as noted above. Treatment options considered include a combination of physical therapy approaches, pharmacologic management, and interventional procedures. Those most applicable to the patient were discussed at this time. Risk of complications and/or morbidity and mortality is high given that acute and chronic pain poses a threat to life and bodily function if undertreated, poorly treated or with failure to maintain adequate treatment and timely follow up. Given the serious and fluctuating nature of pain with extensive consideration for whenever pain changes, there always remains the possibility of prolonged functional impairment requiring constant patient reassessment and high-level medical decision making. The amount and complexity of data reviewed is moderate given that patient labs, radiology reports, and other test were obtained, reviewed and summarized as applicable from the physician portal and/or outside medical records. Pertinent positive and negative findings were considered in medical decision-making. [employer] Other 2023 NotePAIN MANAGEMENT CONSULTATION CONSULTATION DATE: 06/15/2022 HISTORY: Patient presents complaining of 5-7/10 pain in his lower back bilaterally, worse on the right than the left side. This is a sharp pain, increases with activity such as standing, walking and performing transitioning maneuvers. He denies any change in bowel and bladder habits. He reports progressive weakness over the right lower extremity. Patient reports he is most comfortable in a semi-recumbent position. EXAM: On examination, patient appears to have mild hypoesthesia along the right L5 dermatome, equivocally depressed right patellar reflex. Straight leg raise is negative. He had no appreciable weakness of his right lower extremity. No signs consistent with myelopathy are noted. Patient did have significant pain with lumbar facet loading maneuvers occurring bilaterally at L4-5, L5-S1, worse on the right than the left side. It appeared to be most painful at the L3 level, possibly L2 level on the right side with associated myofascial spasm. IMPRESSION: Our impression is patient with chronic pain, recent flare, starting approximately four weeks ago, has not improved with activity modification, interfering with the home exercise program. He is intolerant to [place] agent. I have recommended patient a lumbosacral MRI with and without contrast, lumbar spine films, PA and lateral views, with flexion/extension views as well. I have discontinued his Flexeril and placed him on baclofen 10 mg pills, half a pill to one pill b.i.d.; Zonegran 100 mg at h.s. I would like to see him back in the office in approximately two weeks' time or sooner if needed to monitor his response to change in medication, as well as to monitor status of his right lower extremity strength.[facility] [id number] NoteCONSULTATION CONSULTATION DATE: 05/04/2022 CHIEF COMPLAINT: Low back pain, left side greater than right side. HISTORY OF PRESENT ILLNESS: This is a very pleasant, 72-year-old gentleman, who is known to the [facility]. The patient in the remote past, in June of 2019, had a rhizotomy, radiofrequency ablation of his lower lumbar spine. This afforded the patient substantial relief. The patient is noting more of a pain in his thoracolumbar junction. The patient was seen by Dr. Medina, who had done an x-ray, which shows severe degenerative changes along the thoracolumbar spine. The patient states activities such as pushing, pulling, standing, housework, lifting, ADLs aggravate the patient's pain. Sitting mitigates the patient's pain. The patient's CHU is 20. The patient takes Motrin 800 mg on a b.i.d. basis. Flexeril 10 mg was recently started by Dr. Medina. The patient's PAST MEDICAL HISTORY / SURGICAL HISTORY / REVIEW OF SYSTEMS are noted on the chart, along with the MEDICATION LIST / ALLERGIES and RADIOLOGICAL IMAGES, which were reviewed in the office with the patient. PHYSICAL EXAM: Upon physical examination, this is a pleasant, cooperative gentleman who does not appear to be in any acute distress. VITAL SIGNS: Stable at 133/52 with a heart rate of 57. At a height of 5'8 , the patient weighs 139 kg. HEENT: Atraumatic, normocephalic. NECK: Bullous. HEART: Negative orthopnea. LUNGS: Negative dyspnea. ABDOMEN: Protuberant, distended. BACK: Paravertebral spasming is noted. Jump response is elicited upon extension, compression, direct palpation along the posterior elements and the thoracolumbar region, left hand side greater than right hand side, with reproduction of the patient's pain symptomatology. EXTREMITIES: No pedal edema. MUSCULOSKELETAL: Intact in the lower extremities at 5/5 bilaterally. NEUROLOGICALLY: No radicular symptomatology. PSYCHIATRICALLY: Affect is appropriate. 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 PLAN: The patient will be scheduled for bilateral thoracolumbar medial branch blocks at the level of T12, L1 and L2. Education was done with regards to this. The patient understands and would like to proceed. In the interim, vitamins have been suggested for the patient and education with regards to exercises have been given to the patient. CC: Kojo Medina M.D.[facility] [id number] History and physical note Author Yves Garcia [facility] March 21, 2022 7:59pm Note Date/Time March 21, 2022 7:59pm [facility] [address] [place] [address] Hospitalist H&P Signed Patient: Tammy Wu MR#: [id number] : 1950 Acct:[id number] Age/Sex: 72 / M Adm Date: 2 Loc: 4 Room: [address] [place] [address] Type: ADM INOo Attending Dr: Yves Garcia DO Copies to: MD Yves Reynoso II, DO~ HPI DATE OF EXAMINATION: 03/21/22 CHIEF COMPLAINT: Chest pain, elevated blood pressure HISTORY OF PRESENT ILLNESS: This is a 72-year-old man who presented emergency room with chest pain that started today. He had never had chest pain before. The patient states that today he woke up like normal and took his medicines and was having some coffee. He was at rest. He was not really doing anything exertional. He began having twinges of sharp pain way over on the right pectoralis and under the right armpit. There was no nausea with this but there was no diaphoresis with this. There is no spreading of this down the arms or tothe neck. There is no sensation of shortness of breath. He tried changing positions and walking around and that did not relieve or exacerbate the pain. Patient says that while he was waiting in the ER he slept a little bit and woke up and is now entirely pain-free. Patient states that he saw Dr. Dolan in the office on Tuesday. Their blood pressure medications were changed. It seems that spironolactone 25 mg p.o. daily was added. The patient's significant other describes that the patient washaving a tremendous amount of diuresis and she was surprised how much urine he was putting out when that medicine was added. The patient describes that [facility] [place] [facility] and felt short of breath so he had been concerned about his heart and is why he went to the office with Dr. Dolan. The patient states that one of the problems was the [facility] sent me the wrong medications by mistake. It seems that this was irbesartan. He says that [facility] noticed to get a refill you click on it but it does not tell you what that medication actually is. He thinks that he took the irbesartan for 5 days before realizing this error and then stopping it. I told him that I do not think that taking irbesartan along with his lisinopril would have caused any damage whatsoever. In the emergency room his blood pressures were dramatically elevated at 232/105,210/90, 174/62. He did get IV hydralazine. His blood pressures remained elevated at 183/112, 166/73, 203/94, and 190/84 Its not listed in his home medications here but on his paper that he has from home he takes Coreg 12.5 mg p.o. twice daily. I do wonder if maybe somehow the patient has missed out on his Coreg doses and that is led to rebound hypertension. Review of Systems Review of Systems Review of systems: 10 systems are reviewed and are negative except as mentioned elsewhere in the documentation. PMFSH Vaccinated for COVID-19?: Yes Medical History (Updated 03/21/22 @ 19:57 by Yves Garcia DO) Diabetes Hypertension Obesity Surgical History History of back surgery History of hip replacement History of knee replacement Hx of Achilles tendon repair Hx of rotator cuff surgery Family History Other Hypertension Social History Smoking Status: Former smoker Substance Use Type: Alcohol Meds Medications and Allergies Allergies No Known Allergies Allergy (Verified 03/21/22 11:41) Home Medications amlodipine 5 mg tablet 5 mg PO DAILY 03/21/22 [History Confirmed 03/21/22] aspirin 81 mg tablet 81 mg PO DAILY 03/21/22 [History Confirmed 03/21/22] atorvastatin 40 mg tablet 40 mg PO DAILY 03/21/22 [History Confirmed 03/21/22] liraglutide 0.6 mg/0.1 mL (18 mg/3 mL) subcutaneous pen injector (Victoza 2- Jules)12 mg subcut DAILY 03/21/22 [History Confirmed 03/21/22] lisinopril 40 mg tablet 40 mg PO DAILY 03/21/22 [History Confirmed 03/21/22] spironolactone 25 mg tablet 25 mg PO DAILY 03/21/22 [History Confirmed 03/21/22] triamterene 37.5 mg-hydrochlorothiazide 25 mg tablet 1 tab PO DAILY 03/21/22 [History Confirmed 03/21/22] Exam Physical Exam Vital Signs: Temp Pulse Resp BP Pulse Ox O2 Del Method 98.1 F 81 18 190/84 H 95 Room Air 03/21/22 11:42 03/21/22 18:26 03/21/22 18:26 03/21/22 18:26 03/21/22 18:26 03/21/22 18:26 Narrative: GEN: Awake, alert, oriented x 3. Head: Normal Cephalic, Atraumatic. Eyes: Conjunctiva and sclera clear bilaterally. Nose: External nose and nares normal bilaterally. Mouth: Lips and tongue normal. Neck: No JVD. No thyromegaly. No lymphadenopathy. Lungs: Clear to auscultation bilaterally, no wheezing, no crackles. Heart: Regular rate and rhythm, no murmurs, rubs, or gallops. Abdomen: Soft, normal bowel sounds, no rigidity, guarding, or acute peritoneal signs. Extremities: No swelling or cords in the calves bilaterally, no edema in the ankles bilaterally. Skin: No systemic rashes or lesions. Psychiatric: Calm. Conversant. Cooperative. Neuro: Awake, Alert, and Oriented x 3. No focal or lateralizing deficits. Results Lab Results Labs: Laboratory Last Values Corrected WBC 7.1 X10E3/uL (4.1-10.5) 03/21/22 11:52 Uncorrected WBC Count 7.1 x10E3/uL (4.1-10.5) 03/21/22 11:52 RBC 4.20 X10E6/uL (3.90-5.60) 03/21/22 11:52 Hgb 12.9 g/dL (13.0-17.0) L 03/21/22 11:52 Hct 39.2 % (38.8-50.0) 03/21/22 11:52 MCV 93.4 fl (83.5-101) 03/21/22 11:52 MCH 30.8 pg (27.5-35.2) 03/21/22 11:52 MCHC 33.0 g/dL (32.5-35.6) 03/21/22 11:52 RDW 14.1 % (12.0-14.8) 03/21/22 11:52 Plt Count 205 x10E3/uL (150-450) 03/21/22 11:52 MPV 7.8 fl (6.6-10.1) 03/21/22 11:52 Neut % (Auto) 58.7 % (.) 03/21/22 11:52 Lymph % (Auto) 26.9 % (.) 03/21/22 11:52 [place] % (Auto) 11.1 % (.) 03/21/22 11:52 Eos % (Auto) 2.7 % (.) 03/21/22 11:52 Baso % (Auto) 0.6 % (.) 03/21/22 11:52 Nucleat RBC Rel Count 0.1 /100 WBC (0-0.5) 03/21/22 11:52 Neut # (Auto) 4.2 x10E3/uL (1.8-7.7) 03/21/22 11:52 Lymph # (Auto) 1.9 x10E3/uL (1.00-4.8) 03/21/22 11:52 [place] # (Auto) 0.8 x10E3/uL (0.0-0.8) 03/21/22 11:52 Eos # (Auto) 0.2 x10E3/uL (0.0-0.45) 03/21/22 11:52 Baso # (Auto) 0.0 x10E3/uL (0.0-0.2) 03/21/22 11:52 Monocyte Dist Width 17.83 % (0.00-20.00) 03/21/22 11:52 PT 11.6 Seconds (9.0-12.9) 03/21/22 11:52 INR 1.0 03/21/22 11:52 APTT 28.5 Seconds (25.1-36.5) 03/21/22 11:52 PHA Creatinine Clear 94.11 03/21/22 11:52 Sodium 136 mmol/L (136-146) 03/21/22 11:52 Potassium 5.1 mmol/L (3.5-5.1) 03/21/22 11:52 Chloride 104 mmol/L (95-114) 03/21/22 11:52 Carbon Dioxide 24.4 mmol/L (22.0-30.0) 03/21/22 11:52 Anion Gap 12.7 mEq/L (6.0-15.0) 03/21/22 11:52 BUN 20 mg/dL (9-23) 03/21/22 11:52 Creatinine 0.96 mg/dL (0.64-1.27) 03/21/22 11:52 Est GFR ( Amer) > 60 mL/Min 03/21/22 11:52 Est GFR (Non-Af Amer) > 60 mL/Min 03/21/22 11:52 Glucose 123 mg/dL (70-100) H 03/21/22 11:52 Calcium 10.0 mg/dL (8.2-10.2) 03/21/22 11:52 Total Creatine Kinase 122 U/L (22-269) 03/21/22 19:13 CK-MB (CK-2) 2.8 ng/mL (0.6-6.3) 03/21/22 19:13 CK-MB (CK-2) Rel Index 2.2 % (0.00-2.50) 03/21/22 19:13 Troponin I High Sens 11 pg/mL (0-20) 03/21/22 19:13 B-Natriuretic Peptide 74.0 pg/mL (5-100) 03/21/22 11:52 A&P - Hospitalist Assessment/Plan (1) Atypical chest pain: (2) Accelerated hypertension: (3) Diabetes: Plan Assessment: Patient presented emergency room with right-sided pectoralis and axillary sharp brief pains at rest but accompanied by uncontrolled blood pressure. Recently spironolactone was added to his blood pressure regimen. I do not find Coreg in the retail pharmacy history but it is written on the piece paper that he has handwritten from the patient's home about his pressure medicine so I wonder if he has missed doses of Coreg and then had rebound hypertension. Plan: So far troponins x3 have been 10, 11, and 11. EKG shows sinus bradycardia with heart rate of 58 and a first-degree AV block IV hydralazine will be used overnight, on a as needed basis, for systolic blood pressure elevation. Given his lower heart rate I am not sure that he would be able to tolerate much Coreg. Diabetes control with sliding scale insulin, and his home insulin. Documented By: Yves Garcia DO 1951 Signed By: <Electronically signed by Yves Garcia DO> 03/21/221958 [facility] Work Phone: [phone] Hospital Discharge instructions Patient Education 07/10/2021 11:50:59 Benign Prostatic Hyperplasia Benign Prostatic Hyperplasia Benign prostatic hyperplasia (BPH) is an enlarged prostate gland that is caused by the normal agingprocess and not by cancer. The prostate is a walnut-sized gland that is involved in the production of semen. It is located in front of the rectum and below the bladder. The bladder stores urine and the urethra is the tube that carries the urine out of the body. The prostate may get bigger as a man gets older. An enlarged prostate can press on the urethra. This can make it harder to pass urine. The build-up of urine in the bladder can cause infection. Back pressure and infection may progress to bladder damage and kidney (renal) failure. What are the causes? This condition is part of a normal aging process. However, not all men develop problems from this condition. If the prostate enlarges away from the urethra, urine flow will not be blocked. If it enlarges toward the urethra and compresses it, there will be problems passing urine. What increases the risk? This condition is more likely to develop in men over the age of 50 years. What are the signs or symptoms? Symptoms of this condition include: Getting up often during the night to urinate. Needing to urinate frequently during the day. Difficulty starting urine flow. Decrease in size and strength of your urine stream. Leaking (dribbling) after urinating. Inability to pass urine. This needs immediate treatment. Inability to completely empty your bladder. Pain when you pass urine. This is more common if there is also an infection. Urinary tract infection (UTI). How is this diagnosed? This condition is diagnosed based on your medical history, a physical exam, and your symptoms. Tests will also be done, such as: A post-void bladder scan. This measures any amount of urine that may remain in your bladder after you finish urinating. A digital rectal exam. In a rectal exam, your health care provider checks your prostate by putting a lubricated, gloved finger into your rectum to feel the back of your prostate gland. This exam detects the size of your gland and any abnormal lumps or growths. An exam of your urine (urinalysis). A prostate specific antigen (PSA) screening. This is a blood test used to screen for prostate cancer. An ultrasound. This test uses sound waves to electronically produce a picture of your prostate gland. Your health care provider may refer you to a specialist in kidney and prostate diseases (urologist). How is this treated? Once symptoms begin, your health care provider will monitor your condition (active surveillance or watchful waiting). Treatment for this condition will depend on the severity of your condition. Treatment may include: Observation and yearly exams. This may be the only treatment needed if your condition and symptoms are mild. Medicines to relieve your symptoms, including: ?Medicines to shrink the prostate. ?Medicines to relax the muscle of the prostate. Surgery in severe cases. Surgery may include: ?Prostatectomy. In this procedure, the prostate tissue is removed completely through an open incision or with a laparoscope or robotics. ?Transurethral resection of the prostate (TURP). In this procedure, a tool is inserted through the opening at the tip of the penis (urethra). It is used to cut away tissue of the inner core of the prostate. The pieces are removed through the same opening of the penis. This removes the blockage. ?Transurethral incision (TUIP). In this procedure, small cuts are made in the prostate. This lessens the prostate's pressure on the urethra. ?Transurethral microwave thermotherapy (TUMT). This procedure uses microwaves to create heat. The heat destroys and removes a small amount of prostate tissue. ?Transurethral needle ablation (TUNA). This procedure uses radio frequencies to destroy and remove a small amount of prostate tissue. ?Interstitial laser coagulation (ILC). This procedure uses a laser to destroy and remove a small amount of prostate tissue. ?Transurethral electrovaporization (TUVP). This procedure uses electrodes to destroy and remove a small amount of prostate tissue. ?Prostatic urethral lift. This procedure inserts an implant to push the lobes of the prostate away from the urethra. Follow these instructions at home: Take [id number] and prescription medicines only as told by your health care provider. Monitor your symptoms for any changes. Contact your health care provider with any changes. Avoid drinking large amounts of liquid before going to bed or out in public. Avoid or reduce how much caffeine or alcohol you drink. Give yourself time when you urinate. Keep all follow-up visits as told by your health care provider. This is important. Contact a health care provider if: You have unexplained back pain. Your symptoms do not get better with treatment. You develop side effects from the medicine you are taking. Your urine becomes very dark or has a bad smell. Your lower abdomen becomes distended and you have trouble passing your urine. Get help right away if: You have a fever or chills. You suddenly cannot urinate. You feel lightheaded, or very dizzy, or you faint. There are large amounts of blood or clots in the urine. Your urinary problems become hard to manage. You develop moderate to severe low back or flank pain. The flank is the side of your body between the ribs and the hip. These symptoms may represent a serious problem that is an emergency. Do not wait to see if the symptoms will go away. Get medical help right away. Call your local emergency services (911 in the [place] Do not drive yourself to the hospital. Summary Benign prostatic hyperplasia (BPH) is an enlarged prostate that is caused by the normal aging process and not by cancer. An enlarged prostate can press on the urethra. This can make it hard to pass urine. This condition is part of a normal aging process and is more likely to develop in men over the age of 50 years. Get help right away if you suddenly cannot urinate. This information is not intended to replace advice given to you by your health care provider. Make sure you discuss any questions you have with your health care provider. Document Released: 03/21/2006 Document Revised: 02/13/2019 Document Reviewed: 04/25/2017 [employer] Patient Education 2020 [email or web address]. Follow Up Care 06/12/2021 09:10:16 With:PATRICE SOTELO, Rajeev John, URL Address: [address] [place] [address]- When:07/11/2023 Comments:*PSA is ordered from Dr Medina [facility] consult note Author Colin Dolan [facility] March 22, 2022 12:43pm Note Date/Time March 22, 2022 12:43pm [facility] [address] [place] [id number] Cardiology Consult Note Signed Patient: Tammy Wu MR#: [id number] : 1950 Acct:[id number] Age/Sex: 72 / M Adm Date: 2 Loc: Room: [address] [place] [address] Type: ADM INOo Attending Dr: Jakub Andrews MD Copies to: MD Kojo Griffin II, MD William Patrick McGuinn, MD~ Cardiology HPI History of Present Illness Consult Date: 03/22/22 Reason for Consult: Chest pain, hypertension HPI: Mr. Wu is a 72 year old male who presented with the above He describes the onset of right-sided chest pain and right arm pain. Because ofthis he came to the emergency room. On arrival his blood pressure was noted to be high. He fell asleep in the emergency room and woke up and the pain was gone. Nonetheless they admitted him. EKGs are normal. 5 troponins are normal. Symptomatology was nonanginal based upon the history. Etiology unclear. I believe his blood pressure was elevated because of pain. The patient does have hypertension diabetes and hyperlipidemia. They are appropriately managed. I recently saw him in the office and added spironolactone an effort to achieve improved blood pressure control. My plan, going forward, was further adjustments in therapy and simplification. Today in the hospital, on his outpatient regimen, he is normotensive. Because of this I believe it should be continued without change. Review of Systems Review of Systems All other systems reviewed & are negative unless noted below or in HPI Constitutional Constitutional: Reports system reviewed and no additional complaints, except as documented Eyes Eyes: Reports system reviewed and no additional complaints, except as documented ENT Ears, Nose, Mouth, and Throat: Reports system reviewed and no additional complaints, except as documented Cardiovascular Cardiovascular: Reports as per HPI Respiratory Respiratory: Reports system reviewed and no additional complaints, except as documented Gastrointestinal Gastrointestinal: Reports system reviewed and no additional complaints, except as documented Genitourinary Genitourinary: Reports system reviewed and no additional complaints, except as documented Musculoskeletal Musculoskeletal: Reports system reviewed and no additional complaints, except asdocumented Integumentary/Breasts Skin/Breast: Reports system reviewed and no additional complaints, except as documented Neurologic Neurologic: Reports system reviewed and no additional complaints, except as documented Psychiatric Psychiatric: Reports system reviewed and no additional complaints, except as documented Endocrine Endocrine: Reports system reviewed and no additional complaints, except as documented Hematologic/Lymphatic Hematologic/Lymphatic: Reports system reviewed and no additional complaints, except as documented Allergic/Immunologic Allergic/Immunologic: Reports system reviewed and no additional complaints, except as documented PMFSH Vaccinated for COVID-19?: Yes Medical History (Updated 03/21/22 @ 19:57 by Yves Garcia DO) Diabetes Hypertension Obesity Surgical History History of back surgery History of hip replacement History of knee replacement Hx of Achilles tendon repair Hx of rotator cuff surgery Family History Other Hypertension Social History Smoking Status: Former smoker Substance Use Type: None Meds Medications and Allergies Allergies No Known Allergies Allergy (Verified 03/21/22 11:41) Home Medications amlodipine 5 mg tablet 5 mg PO DAILY 03/21/22 [History Confirmed 03/21/22] aspirin 81 mg tablet 81 mg PO DAILY 03/21/22 [History Confirmed 03/21/22] atorvastatin 40 mg tablet 40 mg PO DAILY 03/21/22 [History Confirmed 03/21/22] carvedilol 12.5 mg tablet 12.5 mg PO BID 03/21/22 [History Confirmed 03/21/22] insulin aspar prot-insulin aspart 100 unit/mL (70-30) subcutaneous pen (Novolog Mix 70-30FlexPen U-100) 65 unit subcut BID 03/21/22 [History Confirmed 03/21/22] liraglutide 0.6 mg/0.1 mL (18 mg/3 mL) subcutaneous pen injector (Victoza 2- Jules)12 mg subcut DAILY 03/21/22 [History Confirmed 03/21/22] lisinopril 40 mg tablet 40 mg PO DAILY 03/21/22 [History Confirmed 03/21/22] metformin 1,000 mg tablet 1,000 mg PO BID 03/21/22 [History Confirmed 03/21/22] spironolactone 25 mg tablet 25 mg PO DAILY 03/21/22 [History Confirmed 03/21/22] triamterene 37.5 mg-hydrochlorothiazide 25 mg tablet 1 tab PO DAILY 03/21/22 [History Confirmed 03/21/22] Exam Physical Exam Vital Signs: Temp Pulse Resp BP Pulse Ox O2 Del Method 97.6 F 57 L 18 126/69 94 L Room Air 03/22/22 08:00 03/22/22 12:00 03/22/22 12:00 03/22/22 12:00 03/22/22 12:00 03/22/22 12:00 HEENT Head: normal to inspection Ears: hearing grossly normal bilaterally Nose: external nose normal and nares normal Face and sinus: normal facial exam Mouth: oral mucosae normal and tongue normal Eyes Conjunctivae: conjunctivae normal Sclera: sclerae normal Neck Neck: normal visual inspection Carotids: normal carotid upstroke Lymphatic: no lymphadenopathy noted Chest Chest palpation & inspection: normal inspection of the chest Resp Effort & Inspection: normal respiratory effort Auscultation: clear to auscultation bilaterally Cardio Rate: regular rate Rhythm: regular rhythm Heart Sounds: S1 normal and S2 normal GI Inspection: normal to inspection Palpation: soft Skin General: no rashes or lesions noted Neuro General: patient alert, patient awake and patient oriented x3 Cognition: normal cognition Motor: muscle tone normal throughout Sensory Exam: no sensory deficits noted Results Labs CBC & CMP: 03/21/22 11:52 03/21/22 11:52 Lab results: Cardiac Enzymes 03/21/22 03/22/22 03/22/22 Range/Units 19:13 01:27 07:55 Total Creatine Kinase 122 103 96 (22-269) U/L CK-MB (CK-2) 2.8 2.1 1.7 (0.6-6.3) ng/mL CK-MB (CK-2) Rel Index 2.2 2.0 1.7 (0.00-2.50) % Lipids 03/22/22 Range/Units 04:30 Triglycerides 158 H (35-149) mg/dL Cholesterol 125 L (140-200) mg/dL HDL Cholesterol 34 (29-71) mg/dL Cholesterol/HDL Ratio 3.7 (<5.0) Intake and Output 03/21/22 03/22/22 03/22/22 23:59 07:59 15:59 Intake Total 150 / 150 200 / 200 Balance 150 / 150 200 / 200 Intake: Oral 150 / 150 200 / 200 Other: # Unmeasured Voids 1 1 # Bowel Movements 0 0 Weight 137.6 kg 137.4 kg Date of Last Bowel Movement 03/21/22 03/21/22 03/21/22 Patient Weight 03/22/22 23:59 Weight 137.4 kg Lab 03/21/22 11:52 PT 11.6 INR 1.0 APTT 28.5 A&P - Cardiology (1) Atypical chest pain: Assessment/Problem Details: Chest pain is noncardiac. Despite prolonged discomfort there were no acute EKG changes and no troponin rise. Code(s): R07.89 - Other chest pain (2) Accelerated hypertension: Assessment/Problem Details: I believe the blood pressure was elevated because of pain and anxiety. With resolution of both his he is now normotensive on his outpatient pharmacologic regimen Code(s): I10 - Essential (primary) hypertension Plan Continue outpatient regimen. Patient suitable for discharge and follow-up in the office as previously scheduled. He has an appointment April 07 at 1:30 PM. Documented By: Colin Dolan MD [id number] Signed By: <Electronically signed by MD Colin Dolan> 03/22/22 1243 [facility] Work Phone: Evaluation + Plan note No data available for this section [facility] evaluation note* Diagnosis Onset Date Resolution Status Atypical chest pain acute [facility] Work Phone: Evaluation note* Diagnosis Onset Date Resolution Status Accelerated hypertension acu te Atypical chest pain acute Diabetes acute [facility] Work Phone: Evaluation note* Diagnosis Carpal tunnel syndrome of right wrist- Primary documented in [facility] encounter [facility] Work Phone: Evaluation note* Diagnosis Carpal tunnel syndrome, right upper limb- Primary Carpal tunnel syndrome, right upper limb documented in this encounter [facility] Work Phone: Evaluation note* Diagnosis Benign essential hypertension- Primary Essential hypertension, benign Mixed hyperlipidemia BMI 45.0-49.9, adult (Multi) Sinus bradycardia Other specified cardiac dysrhythmias Former smoker Personal history of tobacco use, presenting hazards to health White coat syndrome with hypertension documented in this encounter [facility] Work Phone: History and physical note Author Yves Garcia [facility] March 21, 2022 7:59pm Note Date/Time March 21, 2022 7:59pm [facility] [address] [place] [address] Hospitalist H&P Signed Patient: EdmondTammy mak MR#: [id number] : 1950 Acct:[id number] Age/Sex: 72 / M Adm Date: 2 Loc: Room: 4B1749-0 Type: ADM INOo Attending Dr: Yves Garcia DO Copies to: MD Yves Reynoso II, DO~ HPI DATE OF EXAMINATION: 03/21/22 CHIEF COMPLAINT: Chest pain, elevated blood pressure HISTORY OF PRESENT ILLNESS: This is a 72-year-old man who presented emergency room with chest pain that started today. He had never had chest pain before. The patient states that today he woke up like normal and took his medicines and was having some coffee. He was at rest. He was not really doing anything exertional. He began having twinges of sharp pain way over on the right pectoralis and under the right armpit. There was no nausea with this but there was no diaphoresis with this. There is no spreading of this down the arms or tothe neck. There is no sensation of shortness of breath. He tried changing positions and walking around and that did not relieve or exacerbate the pain. Patient says that while he was waiting in the ER he slept a little bit and woke up and is now entirely pain-free. Patient states that he saw Dr. Dolan in the office on Tuesday. Their blood pressure medications were changed. It seems that spironolactone 25 mg p.o. daily was added. The patient's significant other describes that the patient washaving a tremendous amount of diuresis and she was surprised how much urine he was putting out when that medicine was added. The patient describes that [facility] [place] recently and felt short of breath so he had been concerned about his heart and is why he went to the office with Dr. Dolan. The patient states that one of the problems was the [facility] sent me the wrong medications by mistake. It seems that this was irbesartan. He says that when Megan sends you the noticed to get a refill you click on it but it does not tell you what that medication actually is. He thinks that he took the irbesartan for 5 days before realizing this error and then stopping it. I told him that I do not think that taking irbesartan along with his lisinopril would have caused any damage whatsoever. In the emergency room his blood pressures were dramatically elevated at 232/105,210/90, 174/62. He did get IV hydralazine. His blood pressures remained elevated at 183/112, 166/73, 203/94, and 190/84 Its not listed in his home medications here but on his paper that he has from home he takes Coreg 12.5 mg p.o. twice daily. I do wonder if maybe somehow the patient has missed out on his Coreg doses and that is led to rebound hypertension. Review of Systems Review of Systems Review of systems: 10 systems are reviewed and are negative except as mentioned elsewhere in the documentation. PMFSH Vaccinated for COVID-19?: Yes Medical History (Updated 03/21/22 @ 19:57 by Yves Garcia DO) Diabetes Hypertension Obesity Surgical History History of back surgery History of hip replacement History of knee replacement Hx of Achilles tendon repair Hx of rotator cuff surgery Family History Other Hypertension Social History Smoking Status: Former smoker Substance Use Type: Alcohol Meds Medications and Allergies Allergies No Known Allergies Allergy (Verified 03/21/22 11:41) Home Medications amlodipine 5 mg tablet 5 mg PO DAILY 03/21/22 [History Confirmed 03/21/22] aspirin 81 mg tablet 81 mg PO DAILY 03/21/22 [History Confirmed 03/21/22] atorvastatin 40 mg tablet 40 mg PO DAILY 03/21/22 [History Confirmed 03/21/22] liraglutide 0.6 mg/0.1 mL (18 mg/3 mL) subcutaneous pen injector (Victoza 2- Jules)12 mg subcut DAILY 03/21/22 [History Confirmed 03/21/22] lisinopril 40 mg tablet 40 mg PO DAILY 03/21/22 [History Confirmed 03/21/22] spironolactone 25 mg tablet 25 mg PO DAILY 03/21/22 [History Confirmed 03/21/22] triamterene 37.5 mg-hydrochlorothiazide 25 mg tablet 1 tab PO DAILY 03/21/22 [History Confirmed 03/21/22] Exam Physical Exam Vital Signs: Temp Pulse Resp BP Pulse Ox O2 Del Method 98.1 F 81 18 190/84 H 95 Room Air 03/21/22 11:42 03/21/22 18:26 03/21/22 18:26 03/21/22 18:26 03/21/22 18:26 03/21/22 18:26 Narrative: GEN: Awake, alert, oriented x 3. Head: Normal Cephalic, Atraumatic. Eyes: Conjunctiva and sclera clear bilaterally. Nose: External nose and nares normal bilaterally. Mouth: Lips and tongue normal. Neck: No JVD. No thyromegaly. No lymphadenopathy. Lungs: Clear to auscultation bilaterally, no wheezing, no crackles. Heart: Regular rate and rhythm, no murmurs, rubs, or gallops. Abdomen: Soft, normal bowel sounds, no rigidity, guarding, or acute peritoneal signs. Extremities: No swelling or cords in the calves bilaterally, no edema in the ankles bilaterally. Skin: No systemic rashes or lesions. Psychiatric: Calm. Conversant. Cooperative. Neuro: Awake, Alert, and Oriented x 3. No focal or lateralizing deficits. Results Lab Results Labs: Laboratory Last Values Corrected WBC 7.1 X10E3/uL (4.1-10.5) 03/21/22 11:52 Uncorrected WBC Count 7.1 x10E3/uL (4.1-10.5) 03/21/22 11:52 RBC 4.20 X10E6/uL (3.90-5.60) 03/21/22 11:52 Hgb 12.9 g/dL (13.0-17.0) L 03/21/22 11:52 Hct 39.2 % (38.8-50.0) 03/21/22 11:52 MCV 93.4 fl (83.5-101) 03/21/22 11:52 MCH 30.8 pg (27.5-35.2) 03/21/22 11:52 MCHC 33.0 g/dL (32.5-35.6) 03/21/22 11:52 RDW 14.1 % (12.0-14.8) 03/21/22 11:52 Plt Count 205 x10E3/uL (150-450) 03/21/22 11:52 MPV 7.8 fl (6.6-10.1) 03/21/22 11:52 Neut % (Auto) 58.7 % (.) 03/21/22 11:52 Lymph % (Auto) 26.9 % (.) 03/21/22 11:52 Summit % (Auto) 11.1 % (.) 03/21/22 11:52 Eos % (Auto) 2.7 % (.) 03/21/22 11:52 Baso % (Auto) 0.6 % (.) 03/21/22 11:52 Nucleat RBC Rel Count 0.1 /100 WBC (0-0.5) 03/21/22 11:52 Neut # (Auto) 4.2 x10E3/uL (1.8-7.7) 03/21/22 11:52 Lymph # (Auto) 1.9 x10E3/uL (1.00-4.8) 03/21/22 11:52 Summit # (Auto) 0.8 x10E3/uL (0.0-0.8) 03/21/22 11:52 Eos # (Auto) 0.2 x10E3/uL (0.0-0.45) 03/21/22 11:52 Baso # (Auto) 0.0 x10E3/uL (0.0-0.2) 03/21/22 11:52 Monocyte Dist Width 17.83 % (0.00-20.00) 03/21/22 11:52 PT 11.6 Seconds (9.0-12.9) 03/21/22 11:52 INR 1.0 03/21/22 11:52 APTT 28.5 Seconds (25.1-36.5) 03/21/22 11:52 PHA Creatinine Clear 94.11 03/21/22 11:52 Sodium 136 mmol/L (136-146) 03/21/22 11:52 Potassium 5.1 mmol/L (3.5-5.1) 03/21/22 11:52 Chloride 104 mmol/L (95-114) 03/21/22 11:52 Carbon Dioxide 24.4 mmol/L (22.0-30.0) 03/21/22 11:52 Anion Gap 12.7 mEq/L (6.0-15.0) 03/21/22 11:52 BUN 20 mg/dL (9-23) 03/21/22 11:52 Creatinine 0.96 mg/dL (0.64-1.27) 03/21/22 11:52 Est GFR ( Amer) > 60 mL/Min 03/21/22 11:52 Est GFR (Non-Af Amer) > 60 mL/Min 03/21/22 11:52 Glucose 123 mg/dL (70-100) H 03/21/22 11:52 Calcium 10.0 mg/dL (8.2-10.2) 03/21/22 11:52 Total Creatine Kinase 122 U/L (22-269) 03/21/22 19:13 CK-MB (CK-2) 2.8 ng/mL (0.6-6.3) 03/21/22 19:13 CK-MB (CK-2) Rel Index 2.2 % (0.00-2.50) 03/21/22 19:13 Troponin I High Sens 11 pg/mL (0-20) 03/21/22 19:13 B-Natriuretic Peptide 74.0 pg/mL (5-100) 03/21/22 11:52 A&P - Hospitalist Assessment/Plan (1) Atypical chest pain: (2) Accelerated hypertension: (3) Diabetes: Plan Assessment: Patient presented emergency room with right-sided pectoralis and axillary sharp brief pains at rest but accompanied by uncontrolled blood pressure. Recently spironolactone was added to his blood pressure regimen. I do not find Coreg in the retail pharmacy history but it is written on the piece paper that he has handwritten from the patient's home about his pressure medicine so I wonder if he has missed doses of Coreg and then had rebound hypertension. Plan: So far troponins x3 have been 10, 11, and 11. EKG shows sinus bradycardia with heart rate of 58 and a first-degree AV block IV hydralazine will be used overnight, on a as needed basis, for systolic blood pressure elevation. Given his lower heart rate I am not sure that he would be able to tolerate much Coreg. Diabetes control with sliding scale insulin, and his home insulin. Documented By: Yves Garcia DO 1951 Signed By: <Electronically signed by Yves Garcia DO> 03/21/221958 [facility] Work Phone: History general Narrative - Reported* Type Description Date Medical History hypertensive heart disease Medical History diabetes mallitus Medical History hypercholesterolemia Medical History Arthritis Medical History obesity Surgical History right hip replacement Surgical History back surgery- lamiectomy 1992 Surgical History nerve ablation 2019 Surgical History tissue scan 2014 Hospitalization History See Above [employer] Other History of Present illness Narrative* Patient returns in follow-up of problems as noted. He is done relatively well in the interim but blood pressure control could be improved. There was some confusion and he was inadvertently taking both irbesartan and lisinopril. He believes lisinopril is working better because of this we will stop the irbesartan. Blood pressure is elevated because of this I recommended the addition of additional antihypertensive therapy as noted in an effort to achieve control. Blood pressure check in 3 weeks and follow-up with me in the spring. If continued elevations in blood pressure are noted we will transition away from triamterene hydrochlorothiazide and add chlorthalidone as our next intervention. * The rationale and the importance of treating his blood pressure not only to mitigate cardiovascularrisk but also the consequences of diabetes mellitus and renal failure were emphasized and he is motivated. Treatment of lipids is satisfactory and because of this no adjustment necessary. He was reminded regarding the merits of diet exercise and weight loss. [facility] 250 DO Work Phone: History of Present illness NarrativePatient returns in follow-up of problems as noted. He is done well. Management of cardiac risk factors including his hypertension diabetes and hyperlipidemia are discussed and reviewed and control appears adequate and appropriate. I did advocate the merits of diet and weight loss and its favorable impact on diabetes and hypertension. [facility] 600 DO Work Phone: Hospital Discharge instructions Additional Instructions Monitor glucose levels as before.[facility] Work Phone: Hospital Discharge instructions No data available for this section [facility] progress note Author Jakub Andrews [facility] March 22, 2022 4:06pm Note Date/Time March 22, 2022 12:52pm [facility] [address] [place] [address] Hospitalist Progress Note Signed Patient: Tammy Wu MR#: [id number] : 1950 Acct:[id number] Age/Sex: 72 / M Adm Date: 2 Loc: Room: [address] [place] [address] Type: DIS INOo Attending Dr: Jakub Andrews MD Copies to: ~ Date of Service: 03/22/2022 Subjective Subjective Narrative: Patient seen and examined. Patient is comfortably resting in bed. Denies any chest pain, shortness of breath, cough, palpitations. Blood pressure has improved and is down to 120s. Cardiology has cleared the patient for discharge. Patient is anxious to go home. Exam Physical Exam Vital Signs: Temp Pulse Resp BP Pulse Ox O2 Del Method 97.6 F 57 L 18 126/69 94 L Room Air 03/22/22 08:00 03/22/22 12:00 03/22/22 12:00 03/22/22 12:00 03/22/22 12:00 03/22/22 12:00 Narrative: General: Awake, alert, oriented x3 not in acute distress HEENT: Normocephalic, atraumatic, PERRLA, normal mucosa Cardiovascular: Regular rate and rhythm , S1-S2 heard, no murmurs or gallops Lungs: No wheezing or rhonchi heard Gastrointestinal: Soft, nontender, bowel sounds heard Extremities: No edema Neurological: no sensory or motor deficit Skin: Dry and warm, no rashes or lesions Psych: Normal mood and affect Objective Lab Results CBC & Chem 7: 03/21/22 11:52 03/21/22 11:52 Meds Allergies and Active Meds Allergies No Known Allergies Allergy (Verified 03/21/22 11:41) Active Meds: Active Medications Generic Name Dose Route Start Last Admin Trade Name Freq PRN Reason Stop Dose Admin Amlodipine Besylate 5 mg 03/22/22 09:00 03/22/22 09:36 Amlodipine 5 Mg Tablet PO 03/22/23 08:59 5 mg DAILY REMA Administration Aspirin 81 mg 03/22/22 09:00 03/22/22 09:36 N PO 03/22/23 08:59 81 mg DAILY REMA Administration Atorvastatin Calcium 40 mg 03/22/22 09:00 03/22/22 09:36 Atorvastatin 40 Mg Tablet PO 03/22/23 08:59 40 mg DAILY REMA Administration Carvedilol 12.5 mg 03/22/22 09:00 03/22/22 09:36 Carvedilol 12.5 Mg Tablet PO 03/22/23 08:59 12.5 mg BID REMA Administration Clonidine HCl 0.1 mg 03/21/22 20:00 Clonidine 0.1 Mg Tablet PO 03/21/23 19:59 Q4H PRN Hypertension Dextrose 0 gm 03/21/22 19:59 Dextrose 20 % In Water 10 Gm/50 Ml Syringe IV-PUSH 03/21/23 19:58 PRN PRN Hypoglycemia Enoxaparin Sodium 40 mg 03/22/22 10:00 03/22/22 09:38 Enoxaparin 40 Mg/0.4 Ml Syringe SUBCUT 03/22/23 09:59 40 mg DAILY@10 RMEA Administration Glucose 0 gm 03/21/22 19:59 Dextrose 40% Gel 15 Gm Tube PO 03/21/23 19:58 PRN PRN Hypoglycemia Hydralazine HCl 10 mg 03/21/22 19:50 03/22/22 04:41 Hydralazine 20 Mg/Ml Vial IV-PUSH 03/21/23 19:49 10 mg Q4H PRN Administration Hypertension Insulin Aspart 0 units 03/21/22 22:00 03/22/22 12:23 Insulin Aspart 300 Units/3 Ml Insuln.Pen SUBCUT 03/21/23 21:59 Not Given TID.WM.HS [facility] Protocol Insulin Aspart Prota 70%/Aspart 30% 65 units 03/21/22 22:30 03/22/22 09:37 Insulin Aspart Protamin/Aspart 300 Units/3 Ml Insuln.Pen SUBCUT 03/21/23 22:29 65 units BID REMA Administration Liraglutide 12 mg 03/22/22 09:00 03/22/22 09:37 Liraglutide 18 Mg/3 Ml Pen.Injctr SUBCUT 03/22/23 08:59 12 mg DAILY REMA Administration Lisinopril 40 mg 03/22/22 09:00 03/22/22 09:36 Lisinopril 40 Mg Tablet PO 03/22/23 08:59 40 mg DAILY REMA Administration Metformin HCl 1,000 mg 03/22/22 08:00 03/22/22 09:36 Metformin 500 Mg Tablet PO 03/22/23 07:59 1,000 mg BID.WITH.MEALS REMA Administration Sodium Chloride 0 ml 03/21/22 11:40 03/21/22 18:03 Sodium Chloride 0.9 % 10 Ml Syringe IV-PUSH 03/21/23 11:39 10 ml PRN PRN Administration Flush Spironolactone 25 mg 03/22/22 09:00 03/22/22 09:36 Spironolactone 25 Mg Tablet PO 03/22/23 08:59 25 mg DAILY REMA Administration Triamterene/Hydrochlorothiazide 1 tab 03/22/22 09:00 03/22/22 09:36 Triamterene/Hctz 37.5-25mg 1 Tab Tablet PO 03/22/23 08:59 1 tab DAILY REMA Administration A&P - Hospitalist Assessment/Plan (1) Atypical chest pain: (2) Accelerated hypertension: (3) Diabetes: Plan Patient not have any chest pain since he came to the floor Blood pressure has improved and is back to his baseline EKG with no acute ischemic changes. Troponin within normal limits x3 Cardiology on board, cleared the patient for discharge. Recommended to continuesame blood pressure medications that he is taking at home. Patient has an appointment with cardiology as an outpatient Educated patient to go to ER or call his physician if symptoms recur or worsen, he verbalized understanding. Patient is being discharged today. Documented By: Jakub Andrews MD 03/22/22 1252 Signed By: <Electronically signed by Jakub Andrews MD> 03/22/22 1606 [facility] Work Phone: Progress note No data available for this section [facility] Summary Purpose Family History Unknown Family Member Name Dates Details Family history of myocardial infarction: Father(V17.3, Z82.49) Status:Active High serum cholestanol: Moth er Status:Active Family history of diabetes m ellitus: Mother(V18.0, Z83.3) Status:Active Relationship Condition Age at Onset Recorded Date/T gisela Not Specified Hypertension Unknown Unknown Family Member Name Dates Details Family history of myocardial infarction: Father(V17.3, Z82.49) Status:Active High serum cholestanol: Moth er Status:Active Family history of diabetes m ellitus: Mother(V18.0, Z83.3) Status:Active Advance Directives Advance Directive Response Recorded Date/ Time Advance Directives No March 2:17pm Latest Code Status on File Code Status Date Activated Date Inactivated Comments Full Code 03/24/2023 5:29 AM Question Answer Comments Plan of Care: Code Status Discussion Completed Decision Maker: Patient Date Activated Date Inactivated Comments 03/24/2023 5:29 AM Question Answer Comments Plan of Care: Code Status Discussion Completed Decision Maker: Patient Chief Complaint preetiRikkiCARLI REYAmandaMaru is being seen for a 6 month follow-up of.TAMMY KAYODE is being seen for a 6 month follow-up of. Chief Complaint and Reason for Visit Chief Complaint chest pain high bp Reason for Visit Atypical chest pain Chief Complaint chest pain high bp Reason for Visit Accelerated hyperten mamta Atypical chest pain Diabetes Reason for Referral Specialty Diagnoses / Procedures Referred By Elise olsen Referred To Contact Diagnoses Sinus bradycardia Procedures ECG 12 Lead Ro Cadena MD [address] [place], [place] [address] 2, [address] [address] Referral ID Status Reason Start Date Expiration Date V isits Requested Visits Authorized [id number] Authorized 01/13/2024 01/12/2025 1 1 Specialty Diagnoses / Procedures Referred By Elise olsen Referred To Contact Cardiology Diagnoses Benign essential hypertension Procedures Follow Up In Cardiology Ro Cadena MD [address] [facility] 2, [address] [address] Ro Cadena MD [address] [facility] 2, [address] [address] Referral ID Status Reason Start Date Expiration Date V isits Requested Visits Authorized [id number] Authorized 01/13/2024 01/12/2025 1 1 Reason evaluate and treat a neena therapy Diagnosis 1 Lumbar radiculopathy (M54.16) Referral Organization [facility] Referring Provider First Name Karime Referring Provider Last Name Rashmi Referring Provider Specialty Nurse Pract itioner Referred Organization [facility] Referred Address [address] [place], [place],[address] Referred Provider Specialty Physical The rapist Referral Priority Routine General Notes FaSweetie Angelo 06/25/2022 10:36:26 AM > Additional Source Comments (unrecognized sect ion and content) No Status Records FoundNo Status Records FoundNo Status Records FoundNo Status Records FoundNo Status Records FoundNo Status Records FoundNo Status Records FoundNo Status Records FoundNo Status Records FoundNo Status Records Found INFORMATION SOURCE (unrecogn ized section and content) DATE CREATED AUTHOR 08/31/2019 [facility] DATE CREATED AUTHOR AUTHOR'S ORGANIZ ATION 06/13/2021 [facility] DATE CREATED AUTHOR AUTHOR'S ORGANIZ ATION 05/08/2022 [facility] DATE CREATED AUTHOR AUTHOR'S ORGANIZ ATION 08/16/2022 [facility] DATE CREATED AUTHOR AUTHOR'S ORGANIZ ATION 09/14/2022 [facility] DATE CREATED AUTHOR AUTHOR'S ORGANIZ ATION 09/14/2022 [facility] DATE CREATED AUTHOR AUTHOR'S ORGANIZ ATION 03/26/[address] [facility] DATE CREATED AUTHOR AUTHOR'S ORGANIZ ATION 07/27/2023 [facility] DATE CREATED AUTHOR AUTHOR'S ORGANIZ ATION 12/23/2023 [facility] DATE CREATED AUTHOR AUTHOR'S ORGANIZ ATION 01/15/2024 [facility] [employer] Handler Teams (unrecognized sec tion and content) Team Status: Active Member Role Status Dates Kojo Medina II MD Primary Care Provider Active Tyree Husain PA-C Emergency Provider Active Yves Garcia DO Admit Provider, Attending Eufemia kyle Active Team Status: Active Member Role Status Dates Kojo Medina II MD Primary Care Provider Active Team Status: Inactive Member Role Status Dates Kojo Medina II MD Primary Care Provider Active Tyree Husain PA-C Emergency Provider Active Yves Lindbloom , DO Admit Provider Active Jakub Juliana , MD Attending Provider Active Colin Dolan MD Other Provider Active Medical Doctor Md/Medical Director Relationship Specialty Start Date End Date Kojo Medina MD [address] [place] [address] PCP - General 09/08/22 Medical Doctor Md/Medical Director Relationship Specialty Start Date End Date Kojo Medina MD [address] [place] [address] PCP - General 09/08/22 Medical Doctor Md/Medical Director Relationship Specialty Start Date End Date Kojo Medina MD [address] [facility] [address] [place] [address] PCP - General 09/08/22 Goals (unrecognized section and content) Goals may be documented in a n alternate section REASON FOR VISIT (unrecogniz ed section and content) Reason Comments Pain New Patient VisitFin lety numbness Specialty Diagnoses / Procedures Referred By Elise olsen Referred To Contact Diagnoses Carpal tunnel syndrome, right upper limb Carpal tunnel syndrome, right upper limb [G56.01] Procedures OR NEUROPLASTY &/TRANSPOS MEDIAN NRV CARPAL TUNNE Decompression Median Nerve with Carpal Tunnel Release; weighs 3++ and is a diabetic Sera Parikh MD [address] [facility], [address] [place] [address] [address] [place] [address] Referral ID Status Reason Start Date Expiration Date Visits Re quested Visits Authorized [id number] 1 1 Reason Comments Follow-up 6 month Specialty Diagnoses / Procedures Referred By Elise olsen Referred To Contact Cardiology Diagnoses Mixed hyperlipidemia Procedures Follow Up In Cardiology Colin Dolan MD Retired From Practice Ro Cadena MD [address] [place] [address] 2, [facility] [address] [place] [address] Referral ID Status Reason Start Date Expiration Date V isits Requested Visits Authorized [id number] Authorized 10/10/2023 10/09/2024 1 1 PRN Active and Recently Administ ered Medications (unrecognized section and content) Medication Order 03/22/2023 03/23/2023 03/24/2023 sodium chloride 0.9 % irrigation solution (CANCELED) As needed, Starting on Mari 03/24/23 at 0712, Intraprocedure 0712 (Given - Provid er: Sera Calabrese MD) FOR RECORDS PERTAINING TO PATIENTS WHO ARE OR HAVE BEEN ENROLLED IN A CHEMICAL DEPENDENCY/SUBSTANCEABUSE PROGRAM, SOME INFORMATION MAY BE OMITTED. This clinical summary was aggregated from multiple sources. Caution should be exercised in using it in the provision of clinical care. This summary normalizes information from multiple sources, and as a consequence, information in this document may materially change the coding, format and clinical context of patient data. In addition, data may be omitted in some cases. CLINICAL DECISIONS SHOULD BE BASED ON THE PRIMARY CLINICAL RECORDS. [employer] provides no warranty or guarantee of the accuracy or completeness of information in this document.
--- NOTE | 2024-01-24 11:42 | XR_ITS ---
The [address] [address] Patient Name: TAMMY HEADLEY MRN: [id number] date: 1950 Sex: M Assigned Patient Location: RAD Current Patient Location: RAD Accession/Order Number: [id number] Exam Date: 01/24/2024 11:50 Report Date: 01/24/2024 15:22 At the request of: REGINO DUNCAN Procedure: XR chest 2V PROCEDURE: XR chest 2V DATE: 01/24/2024 10:50 AM CDT COMPARISONS: 10/19/2021 CLINICAL INDICATION: 73 years Male Wheezing, Shortness Of Breath FINDINGS: The heart is within normal limits in size and stable. There is coarse increased interstitial markings throughout all lung [place] best seen in the perihilar and infrahilar regions extending to the lower lung [place] laterally. These are more prominent than previous exam. Some of this likely represents atelectasis. Some of it may represent interstitial fluid due to congestion. There could be some developing chronic lung changes. Less likely, this could represent some diffuse interstitial inflammatory infiltrate. There is no evidence of pleural effusion or pneumothorax. XR/XR chest 2V IMPRESSION: The coarse increased interstitial markings of the lungs have progressed from previous exam. Possible etiologies are discussed above. Electronically authenticated by: VINCENZO MCKNIGHT Date: 01/24/2024 15:22
== END 2024-01-24 11:36 | disposition home or self-care (01) ==
LOC: RAD 11:37
PROVIDERS: PCP Internal Medicine; Visit Provider Nurse Practitioner Family
DX: R06.02 Shortness of breath (principal); R06.2 Wheezing
CPT/HCPCS: 71046

== ENCOUNTER 2024-12-05 14:02 | Outpatient (OUT) | payer MEDICARE, SELFPAY ==
--- OUTSIDE RECORDS SUMMARY | 2024-12-05 14:05 | XMS_ITS | Clinical Summary ---
Author Organization [facility] Address [address] [place] [address] Phone Care Team Providers Care Photovoltaic Fabrication Technician Name Role Phone Kojo Medina MD Primary Care Provider Allergies Active Allergy Reactions Criticality Noted Date Comments Animal Dander Shortness of breath,Itching,Rash High 03/22/2023 Horses Atorvastatin Myalgia 10/12/2024 Medications triamterene-hydroch lorothiazid (Maxzide-25) 37.5-25 mg tablet Take 1 tablet by mouth once daily. Active insulin NPH and regular human (NovoLIN 70/30 U-100 Insulin) 100 unit/mL (70-30) injection Inject 65 Units under the skin 2 times a day before meals. Active multivitamin tablet Take 1 tablet by mouth once daily. Active cholecalciferol (Vitamin D3) 25 MCG (1000 UT) capsule Take 1 capsule (25 mcg) by mouth once daily. Active ibuprofen 200 mg tablet Take 2 tablets (400 mg) by mouth every 6 hours if needed for mild pain (1 - 3). Active amLODIPine (Norvasc) 10 mg tabletIndications:B enign essential hypertension Take 1 tablet by mouth once daily 90 tablet 3 Active cyclobenzaprine (Flexeril) 10 mg tablet Take 1 tablet (10 mg) by mouth every 8 hours if needed for muscle spasms. Active oxyBUTYnin (Ditropan) 5 mg tablet Take 1 tablet (5 mg) by mouth 2 times a day. Active Ozempic 0.25 mg or 0.5 mg (2 mg/3 mL) pen injector Inject 0.5 mg under the skin 1 (one) time per week. Active carvedilol (Coreg) 3.125 mg tabletIndications:E ssential (primary) hypertension Take 1 tablet (3.125 mg) by mouth 2 times daily (morning and late afternoon). 180 tablet 3 5 10/13/19 Active pravastatin (Pravachol) 20 mg tabletIndications:M ixed hyperlipidemia Take 1 tablet (20 mg) by mouth once daily. 90 tablet 3 5 10/13/19 Active Active Problems Problem Noted Date Diagnosed Date BMI 45.0-49.9, adult (Multi) 01/13/2024 Sinus bradycardia 01/13/2024 Former smoker 01/13/2024 White coat syndrome with hypertension 01/13/2024 Junctional rhythm 01/13/2024 Diabetes mellitus (Multi) 06/10/2023 Hyperlipidemia 06/10/2023 Carpal tunnel syndrome, right upper limb 023 Essential (primary) hypertension 06/25/2008 Encounters Date Type Department Care Team Description 10/12/2024 10:20 AM EDT Office Visit [address] [phone] Hortencia Cadena MD Essential (primary) hypertension (Primary Dx); White coat syndrome with hypertension; Sinus bradycardia; Junctional rhythm; Mixed hyperlipidemia; BMI 45.0-49.9, adult (Multi); Former smoker 10/12/2024 Travel 10/11/[address] [phone] Hortencia Cadena MD Benign essential hypertension from Last 3 Months Immunizations Immunization Administration Dates Next Due Flu vaccine (IIV4), preserva tive free *Check age/dose* 01/02/2019,01/27/2016 Flu vaccine, quadrivalent, h igh-dose, preservative free, age 65y+ (FLUZONE) 01/25/2018 Flu vaccine, trivalent, pres ervative free, HIGH-DOSE, age 65y+ (Fluzone) 01/23/2022,02/19/2019,01/25/2018 Influenza, Seasonal, Quadriv alent, Adjuvanted 01/18/2023,01/22/2022,03/12/2021 Influenza, Unspecified 02/04/2023,01/03/2020 Influenza, injectable, quadrivalent 01/27/2016 Influenza, seasonal, injectable 01/03/2020,01/02 Influenza, seasonal, intrade rmal, preservative free 03/29/2017,04/18/2013 Pfizer COVID-19 vaccine, 12 years and older, (30mcg/0.3mL) (Comirnaty) 01/18/2023 Pneumococcal conjugate vacci ne, 13-valent (PREVNAR 13) 04/04/2016 Pneumococcal polysaccharide vaccine, 23-valent, age 2 years and older (PNEUMOVAX 23) 01/07/2016,07/29/2015 Zoster vaccine, recombinant, adult (SHINGRIX) 12/21/2021,12/02/2020 Family History Medical History Relation Name Comments Heart attack Father Diabetes type II Mother Hyperlipidemia Mother Relation Name Status Comments Father Mother Social History Tobacco Use Types Packs/Day Years Used Date Smoking Tobacco: Former Cigarettes 2 30 1 970 - 2000 Smokeless Tobacco: Never Tobacco Cessation:Counseling Given: Not Answered Alcohol Use Standard Drinks/Week Comments Not Currently 0 (1 standard drink = 0.6 oz pur e alcohol) 1 beer a month Sex and Gender Information Value Date Recorded Sex Assigned at Not on file Legal Sex Male 2:15 PM EST Gender Identity Not on file Sexual Orientation Not on file Last Filed Vital Signs Vital Sign Reading Time Taken Comments Blood Pressure 138/88 10/12/2024 10:18 AM EDT Pulse 47 10/12/2024 10:18 AM EDT Temperature 36.5 C (97.7 F) 03/24/2023 7:25 AM EST Respiratory Rate 18 03/24/2023 7:25 AM EST Oxygen Saturation 95% 03/24/2023 7:25 AM EST Inhaled Oxygen Concentration - - Weight 133 kg (294 lb) 10/12/2024 10:18 AM EDT Height 170.2 cm (5' 7 ) 10/12/2024 10:18 AM EDT Body Mass Index 46.05 10/12/2024 10:18 AM EDT Plan of Treatment Upcoming Encounters Date Type Department Care Team (Late st Contact Info) Description 08/09/2025 10:50 AM EDT Office Visit [facility] [address] [facility] [address] [place] [address] Hortencia Cadena MD [address] [place] [address] Health Maintenance Due Date Last Done Comments CT Colonography 1950 Diabetes: Hemoglobin A1C 1950 FIT-DNA (Cologuard) 1950 FIT 1950 Lipid Panel 1950 Sigmoidoscopy 1950 MMR Vaccines (1 of 1 - Standard series) 1951 Hepatitis C Screening 1968 DTaP/Tdap/Td Vaccines (1 - Tdap) 1972 RSV High Risk: (Elderly (60+) or Population) (1 - Risk 60-74 years 1-dose series) 2010 Abdominal Aortic Aneurysm (AAA) Screening 2015 COVID-19 Vaccine ( season) 2023 01/18/2023, 02/09/2021, 06/26/2020, Additional history exists Diabetes: Urine Protein Screening 07/24/2024 07/25/2023 Colonoscopy 07/29/2024 07/29/2014 Colorectal Cancer Screening 07/29/2024 Influenza Vaccine (#1) 2024 , 01/18/2023, 01/23/2022, Additional history exists Medicare Annual Wellness Visit (AWV) 02/17/2025 02/17/2024, 12/08/2021 Diabetes: Retinopathy Screening 01/16/2026 01/17/2024, 12/15/2021 Pneumococcal Vaccine Completed 04/04/2016, 01/07/2016, 07/29/2015 Zoster Vaccines Completed 12/21/2021, 12/02/2020 HIB Vaccines Aged Out No longer eligi ble based on patient's age to complete this topic HPV Vaccines Aged Out No longer eligi ble based on patient's age to complete this topic Hepatitis A Vaccines Aged Out No long er eligible based on patient's age to complete this topic Hepatitis B Vaccines Aged Out No long er eligible based on patient's age to complete this topic IPV Vaccines Aged Out No longer eligi ble based on patient's age to complete this topic Meningococcal Vaccine Aged Out No clifford lety eligible based on patient's age to complete this topic Rotavirus Vaccines Aged Out No longer eligible based on patient's age to complete this topic Medical Devices Implanted Type Area Concrete Pipe Machine Operator Device Identifier Shelf Expiration Date Model / Serial / Lot Joint Hip Joint Hip Right: Hip Joint Knee Joint Knee Left: Knee Procedures Procedure Name Priority Date/Time Associated Diagnosis Comments ECG 12-LEAD Routine 10/12/2024 10:20 AM EDT Sinus bradycardia Junctional rhythm from Last 3 Months Results * ECG 12 Lead (10/12/2024 10:20 AM EDT) Narrative CPACS - 10/12/2024 10:35 AM EDT Sinus bradycardia with heart rate 47 Hortencia Cadena MD ECG ORDERABLES Final Resu lt CPACS from Last 3 Months Insurance [employer] Advance Directives For more information, please contact: [phone] (Available ) * Full Code (Latest Code Status on File) Date Activated Date Inactivated Comments 03/24/2023 5:29 AM Question Answer Comments Plan of Care: Code Status Discussion Completed Decision Maker: Patient Care Teams Photovoltaic Fabrication Technician Relationship Specialty Start Date End Date Kojo Medina MD [address] [facility] [address] [place] [address] PCP - General 09/08/22
--- OUTSIDE RECORDS SUMMARY | 2024-12-05 14:05 | XMS_ITS | Encounter Summary ---
Author Organization [facility] Address [address] [place] [address] Care Team Providers Care Shot Dropper Name Role Phone Kojo Medina MD Unavailable [phone] Kojo Medina MD Primary Care Provider [phone] Encounter Details Date Type Department Care Team (Late st Contact Info) Description 01/24/2024 Clinisync Result Encounter [facility] External Department Unsolicited Regino Duncan, E [employer]EL[employer] 112 [facility] [address] [place] [address] Social History Tobacco Use Types Packs/Day Years Used Date Smoking Tobacco: Former Cigarettes 2 35 1 965 - 2000 Smokeless Tobacco: Never Comments:Last smoked: >10 ye ars Alcohol Use Standard Drinks/Week Comments Yes 6 (1 standard drink = 0.6 oz pur e alcohol) B1300 Health Literacy Answer Date Recor ded How often do you need to hav e someone help you when you read instructions, pamphlets, or other written material from your doctor or pharmacy? Never 12/14/2023 Humiliation, Afraid, Rape, and Kick questionnair e Answer Date Recorded Within the last year, have y ou been afraid of your partner or ex-partner? No 10/14/2022 Within the last year, have y ou been humiliated or emotionally abused in other ways by your partner or ex-partner? No Within the last year, have y ou been kicked, hit, slapped, or otherwise physically hurt by your partner or ex-partner? No 10/14/2022 Within the last year, have y ou been raped or forced to have any kind of sexual activity by your partner or ex-partner? No 10/14/2022 Social Connection and Isolat ion Panel [NHANES] Answer Date Recorded In a typical week, how many times do you talk on the phone with family, friends, or neighbors? More than three times a week 12/14/2023 How often do you get togethe r with friends or relatives? Twice a week 12/14/2023 How often do you attend chur or bahai services? Never 12/14/2023 Do you belong to any clubs o r organizations such as pentecostal groups, unions, fraternal or athletic groups, or school groups? Yes 12/14/2023 How often do you attend meet ings of the clubs or organizations you belong to? Never 12/14/2023 Are you , , di vorced, , never , or living with a partner? 12/14/2023 AUDIT-C Answer Date Recorded Q1: How often do you have a drink containing alc ohol? 2-4 times a month 12/14/2023 Q2: How many drinks containi ng alcohol do you have on a typical day when you are drinking? 1 or 2 12/14/2023 Q3: How often do you have si x or more drinks on one occasion? Less than monthly 12/14/2023 Overall Financial Resource Strain (CARDIA) Answe r Date Recorded How hard is it for you to pa y for the very basics like food, housing, medical care, and heating? Not very hard 12/14/2023 [facility]at ionga Health - Occupational Stress Questionnaire Answer Date Recorded Do you feel stress - tense, restless, nervous, or anxious, or unable to sleep at night because your mind is troubled all the time - these days? Not at all 12/14/2023 Exercise Vital Sign Answer Date Recorde d On average, how many days pe r week do you engage in moderate to strenuous exercise (like a brisk walk)? 0 days 12/14/2023 On average, how many minutes do you engage in exercise at this level? 0 min 12/14/2023 Hunger Vital Sign Answer Date Recorded Within the past 12 months, y ou worried that your food would run out before you got the money to buy more. Never true 12/14/19 24 Within the past 12 months, t he food you bought just didn't last and you didn't have money to get more. Never true 12/14/2023 PRAPARE - Transportation Answer Date Re corded In the past 12 months, has l ack of transportation kept you from medical appointments or from getting medications? No 12/03 In the past 12 months, has l ack of transportation kept you from meetings, work, or from getting things needed for daily living? No 12/14/2023 Housing Stability Vital Sign Answer Lenin e Recorded In the last 12 months, was t here a time when you were not able to pay the mortgage or rent on time? No 10/14/2022 In the last 12 months, how many places have you lived? 1 10/14/2022 In the last 12 months, was t here a time when you did not have a steady place to sleep or slept in a jail (including now)? No 10/14/2022 Housing Stability Vital Sign Answer Lenin e Recorded In the last 12 months, was t here a time when you were not able to pay the mortgage or rent on time? No 12/14/2023 In the past 12 months, how m any times have you moved where you were living? 0 12/14/2023 At any time in the past 12 m [facility], were you homeless or living in a jail (including now)? No 12/14/2023 Sex and Gender Information Value Date Recorded Sex Assigned at Not on file Legal Sex Male 6:53 PM EDT Gender Identity Not on file Sexual Orientation Not on file documented as of this encounter Plan of Treatment Upcoming Encounters Date Type Department Care Team (Late st Contact Info) Description 12/14/2024 10:00 AM EDT Office Visit [facility] [address] [place] [address] Thanh Bates PA [address] [facility] [place] [address] 12/20/2024 9:30 AM EDT Office Visit [facility] [address] [place] [address] Leena Jordan PA 112 [facility] 110 [place] [address] 07/17/2025 11:00 AM EDT Office [facility] [address] [place] [address] Rachel Vasquez PA [address] [place] [address] documented as of this encounter Procedures Procedure Name Priority Date/Time Associated Diagnosis Comments XR CHEST 2V 01/24/2024 3:22 PM EDT documented in this encounter Results * XR CHEST 2V (01/24/2024 3:22 PM EDT) Anatomical Region Laterality Modality Other 01/24/2024 3:22 PM EDT Narrative 01/24/2024 3:24 PM EDT [address] [address] XRay Report Signed Patient: TAMMY WU MR#: [id number] : 1950 Acct:[id number] Age/Sex: 73 / M ADM Date: 01/24/24 Loc: RAD Attending Dr: REGINO DUNCAN Ordering Physician: REGINO DUNCAN Date of Service: 01/24/24 Procedure(s): XR chest 2V Accession Number(s): [id number] cc: KOJO MEDINA ; REGINO DUNCAN [address] [address] Patient Name: TAMMY WU MRN: [id number] date: 1950 Sex: M Assigned Patient Location: RAD Current Patient Location: RAD Accession/Order Number: [id number] Exam Date: 01/24/2024 11:50 Report Date: 01/24/2024 15:22 At the request of: REGINO DUNCAN Procedure: XR chest 2V PROCEDURE: XR chest 2V DATE: 01/24/2024 10:50 AM CDT COMPARISONS: 10/19/2021 CLINICAL INDICATION: 73 years Male Wheezing, Shortness Of Breath FINDINGS: The heart is within normal limits in size and stable. There is coarse increased interstitial markings throughout all lung l[place] best seen in the perihilar and infrahilar regions extending to the lower lung [place] laterally. These are more prominent than previous exam. Some of this likely represents atelectasis. Some of it may represent interstitial fluid due to congestion. There could be some developing chronic lung changes. Less likely, this could represent some diffuse interstitial inflammatory infiltrate. There is no evidence of pleural effusion or pneumothorax. XR/XR chest 2V IMPRESSION: The coarse increased interstitial markings of the lungs have progressed from previous exam. Possible etiologies are discussed above. Electronically authenticated by: VINCENZO BEDOYA Date: 01/24/2024 15:22 Dictated By: Vincenzo Bedoya M.D. Signed By: 01/24/241523 DD/ 21 TD/TT: Percher: Procedure Note Radiology, Radiologist, MD - 01/24/2024 [place] [address] XRay Report Signed Patient: TAMMY WU MMR#: [id number] : 1950Acct:[id number] Age/Sex: 73 / MADM Date: 01/24/24 Loc: RAD Attending Dr: REGINO DUNCAN Ordering Physician: REGINO DUNCAN Date of Service: 01/24/24 Procedure(s): XR chest 2V Accession Number(s): [id number] cc: KOJO MEDINA ; REGINO DUNCAN [place] [id number] Patient Name: TAMMY WU MRN: [id number] date: 1950 Sex: M Assigned Patient Location: [facility] Current Patient Location: RAD Accession/Order Number: [id number] Exam Date: 01/24/2024 11:50 Report Date: 01/24/2024 15:22 At the request of: REGINO DUNCAN Procedure: XR chest 2V PROCEDURE: XR chest 2V DATE: 01/24/2024 10:50 AM CDT COMPARISONS: 10/19/2021 CLINICAL INDICATION: 73 years Male Wheezing, Shortness Of Breath FINDINGS: The heart is within normal limits in size and stable. There is coarse increased interstitial markings throughout all lung [place] best seen in the perihilar and infrahilar regions extending to the lower lung [place] laterally. These are more prominent than previous exam. Some of thislikely represents atelectasis. Some of it may represent interstitial fluid due to congestion. There could be some developing chronic lung changes. Lesslikely, this could represent some diffuse interstitial inflammatory infiltrate. There is no evidence of pleural effusion or pneumothorax. XR/XR chest 2V IMPRESSION: The coarse increased interstitial markings of the lungs have progressed from previous exam. Possible etiologies are discussed above. Electronically authenticated by: VINCENZO BEDOYA Date: 01/24/2024 15:22 Dictated By: Vincenzo Bedoya M.D. Signed By:01/24/24 1524 DD/ 152 TD/TT: Percher: us Regino Duncan E [employer] DEVELOPER [facility] Final Resu lt documented in this encounter Visit Diagnoses Not on filedocumented in this encounter Care Teams Shot Dropper Relationship Specialty Start Date End Date Kojo Medina MD [address] [facility] [address] [place] [address] PCP - [employer] 04/04/20 Kojo Medina MD [address] [facility] [address] [place] [address] PCP - General Internal Medicine 08/18/22 documented as of this encounter
--- OUTSIDE RECORDS SUMMARY | 2024-12-05 14:05 | XMS_ITS | Encounter Summary ---
Author Organization [facility] Address [address] [place] [address] Care Team Providers Care Cps Team Lead Name Role Phone Kojo Medina MD Unavailable Kojo Medina MD Primary Care Provider [phone] Encounter Details Date Type Department Care Team (Late st Contact Info) Description 01/24/[address] [facility] [address] [facility] 110 [place] [address] Kojo Medina MD [address] [facility] 110 [place] [address] Social History Tobacco Use Types Packs/Day Years [...] 12/14/2023 How often do you attend chur ch or zoroastrian services? Never 12/14/2023 Do you belong to any clubs o r organizations such as bahai groups, unions, fraternal or athletic groups, or [...] care, and heating? Not very hard 12/14/2023 [facility] of Occupat ional Health - Occupational Stress Questionnaire Answer Date [...] place to sleep or slept in a fdc (including now)? No 10/14/2022 Housing Stability Vital Sign Answer Lenin e Recorded In the last 12 months, was t here a time when you were not able to pay the mortgage or rent on time? No 12/14/2023 In the past 12 months, how m any times have you moved where you were living? 0 12/14/2023 At any time in the past 12 m [place], were you homeless or living in a fdc (including now)? No 12/14/2023 Sex and Gender Information Value Date Recorded Sex Assigned at Not on file Legal Sex Male 6:53 PM EDT Gender Identity Not on file Sexual Orientation Not on file documented as of this encounter Plan of Treatment Upcoming Encounters Date Type Department Care Team (Late st Contact Info) Description 12/14/2024 10:00 AM EDT Office Visit [facility] [address] [place] [address] Thanh Bates PA [address] [place] [address] 12/20/2024 9:30 AM EDT Office Visit [facility] [address] [facility] [address] [place] [address] Leena Jordan PA [address] [place] [address] [place] [address] 07/17/2025 11:00 AM EDT Office Visit [facility] [address] [place] [address] Rachel Vasquez PA [address] [place] [address] documented as of this encounter Visit Diagnoses Not on filedocumented in this encounter Care Teams Cps Team Lead Relationship Specialty Start Date End Date Kojo Medina MD [address] [facility] [address] [place] [address] PCP - [employer] 04/04/20 Kojo Medina MD [address] [facility] [address] [place] [address] PCP - General Internal Medicine 08/18/22 documented as of this encounter
--- OUTSIDE RECORDS SUMMARY | 2024-12-05 14:05 | XMS_ITS | Encounter Summary ---
Author Organization [facility] Address [address] [place] [address] Care Team Providers Care Benefits Sales Consultant Name Role Phone Kojo Medina MD Unavailable [phone] Kojo Medina MD Primary Care Provider [phone] Encounter Details Date Type Department Care Team (Late st Contact Info) Description 02/20/[address] [facility] [address] [facility] 110 [place] [address] Kojo Medina MD [address] [facility] 110 [place] [address] Social History Tobacco Use Types Packs/Day Years Used Date Smoking Tobacco: Former Cigarettes 2 35 1 965 - 2000 Smokeless Tobacco: Former Snuff, Chew Quit: 04/04/1989 Comments:Last smoked: >10 ye ars Alcohol Use Standard Drinks/Week Comments Not Currently 6 (1 standard drink = 0.6 oz [...] How often do you attend chur or cheondoism services? Never 12/14/2023 Do you belong to any clubs o r organizations such as mu-ism groups, unions, fraternal or athletic groups, or [...] care, and heating? Not very hard 12/14/2023 [facility] [place] of Occupat ional Health - Occupational Stress [...] place to sleep or slept in a correction (including now)? No 10/14/2022 Housing Stability Vital Sign Answer Lenin e Recorded In the last 12 months, was t here a time when you were not able to pay the mortgage or rent on time? No 12/14/2023 In the past 12 months, how m any times have you moved where you were living? 0 12/14/2023 At any time in the past 12 m [facility], were you homeless or living in a correction (including now)? No 12/14/2023 Sex and Gender Information Value Date Recorded Sex Assigned at Not on file Legal Sex Male 6:53 PM EDT Gender Identity Not on file Sexual Orientation Not on file documented as of this encounter Plan of Treatment Upcoming Encounters Date Type Department Care Team (Late st Contact Info) Description 12/14/2024 10:00 AM EDT Office Visit [facility] [address] [place] [address] Thanh Bates PA [address] [place] [address] 12/20/2024 9:30 AM EDT Office Visit [facility] [address] [facility] [address] [place] [address] Leena Jordan PA [address] [facility] [address] [place] [address] 07/17/2025 11:00 AM EDT Office [facility] [address] [place] [address] Rachel Vasquez PA [address] [place] [address] documented as of this encounter Visit Diagnoses Not on filedocumented in this encounter Care Teams Benefits Sales Consultant Relationship Specialty Start Date End Date Kojo Medina MD [address] [facility] [address] [place] [address] PCP - [employer] 04/04/20 Kojo Medina MD [address] [facility] [address] [place] [address] PCP - General Internal Medicine 08/18/22 documented as of this encounter
--- OUTSIDE RECORDS SUMMARY | 2024-12-05 14:05 | XMS_ITS | Encounter Summary ---
Author Organization [facility] Address [address] [place] [address] Phone Care Team Providers Care Aerospace Products Sales Engineer Name Role Phone Kojo Medina MD Primary Care Provider [phone] Encounter Details Date Type Department Care Team (Late st Contact Info) Description 03/21/2023 Transcribe Orders [facility] [address] [address] Gudelia Parikh MD [address] [facility], [address] [place] [address] Carpal tunnel syndrome, right upper limb (Primary Dx) Social History Tobacco Use Types Packs/Day Years Used Date Smoking Tobacco: Never Assessed Sex and Gender Information Value Date Recorded Sex Assigned at Not on file Legal Sex Male 2:15 PM EST Gender Identity Not on file Sexual Orientation Not on file COVID-19 Exposure Response Date Recorded In the last 10 days, have yo u been in contact with someone who was confirmed or suspected to have Coronavirus/COVID-19? No / Unsure 03/24/2023 5:46 AM EST documented as of this encounter Functional Status * Calculated C-SSRS Risk Score (Lifetime/Recent) Answer Date of Assessment Author No Risk Indicated 03/24/2023 5:49 AM Radha Keen RN * [place] Suicide Severity Rating Scale (Screener/Recent Self-Report) Question Answer Date of Assessment Author 1. Wish to be (Past 1 Month) No 023 5:49 AM Radha Keen ELOISA 2. Non-Specific Active Suici boogie Thoughts (Past 1 Month) No 03/24/2023 5:49 AM Len Keen, ELOISA 6. Suicidal Behavior (Lifetime) No 5:49 AM Radha Keen, ELOISA documented as of this encounter Plan of Treatment Upcoming Encounters Date Type Department Care Team (Late st Contact Info) Description 08/09/2025 10:50 AM EDT [facility] [facility] 250 [place] [address] Hortencia Cadena MD [facility] [address] [place] [address] documented as of this encounter Visit Diagnoses Diagnosis Carpal tunnel syndrome, right upper limb- Primary documented in this encounter Care Teams Aerospace Products Sales Engineer Relationship Specialty Start Date End Date Kojo Medina MD 112 [facility] 110 [place] [address] PCP - General 09/08/22 documented as of this encounter
--- OUTSIDE RECORDS SUMMARY | 2024-12-05 14:06 | XMS_ITS | Encounter Summary ---
Author Organization [facility] Address [address] [place] [address] Care Team Providers Care Scada Engineer Name Role Phone Kojo Medina MD Unavailable [phone] Kojo Medina MD Primary Care Provider [phone] Encounter Details Date Type Department Care Team (Late st Contact Info) Description 01/25/[address] [facility] [address] [facility] 110 [place] [address] Kojo Medina MD [address] [facility] 110 [place] [address] Social History Tobacco Use Types Packs/Day Years Used Date Smoking Tobacco: Former Cigarettes 2 35 1 965 - 2000 Smokeless Tobacco: Never Comments:Last smoked: >10 ye ars Alcohol Use Standard Drinks/Week Comments Yes 6 (1 standard drink = 0.6 oz pur e alcohol) Humiliation, Afraid, Rape, and Kick questionnair e [...] neighbors? More than three times a week 10/14/2022 How often do you get togethe r with friends or relatives? More than three times a week 10/14/2022 How often do you attend chur ch or jewish services? Never 10/14/2022 Do you belong to any clubs o r organizations such as evangelical groups, unions, fraternal or athletic groups, or school groups? Yes 10/14/2022 How often do you attend meet ings of the clubs or organizations you belong to? More than 4 times per year 10/14/2022 Are you , , di vorced, , never , or living with a partner? 10/14/2022 AUDIT-C Answer Date Recorded Q1: How often do you have a drink containing alc ohol? 2-4 times a month 10/14/2022 Q2: How many drinks containi ng alcohol do you have on a typical day when you are drinking? 3 or 4 10/14/2022 Q3: How often do you have si x or more drinks on one occasion? Never 10/14/2022 Overall Financial Resource Strain (CARDIA) Answe r Date Recorded How hard is it for you to pa y for the very basics like food, housing, medical care, and heating? Not very hard 10/14/2022 [facility] - Occupational Stress Questionnaire Answer Date Recorded Do you feel stress - tense, restless, nervous, or anxious, or unable to sleep at night because your mind is troubled all the time - these days? Not at all 10/14/2022 Exercise Vital Sign Answer Date Recorde d On average, how many days pe r week do you engage in moderate to strenuous exercise (like a brisk walk)? 0 days 10/14/2022 On average, how many minutes do you engage in exercise at this level? 0 min 10/14/2022 Hunger Vital Sign Answer Date Recorded Within the past 12 months, y ou worried that your food would run out before you got the money to buy more. Never true 10/15/19 23 Within the past 12 months, t he food you bought just didn't last and you didn't have money to get more. Never true 10/14/2022 PRAPARE - Transportation Answer Date Re corded In the past 12 months, has l ack of transportation kept you from medical appointments or from getting medications? No 10/02 In the past 12 months, has l ack of transportation kept you from meetings, work, or from getting things needed for daily living? No 10/14/2022 Housing Stability Vital Sign Answer [...] place to sleep or slept in a long term (including now)? No 10/14/2022 Sex and Gender Information Value Date Recorded Sex Assigned at Not on file Legal Sex Male 6:53 PM EDT Gender Identity Not on file Sexual Orientation Not on file COVID-19 Exposure Response Date Recorded In the last 10 days, have yo u been in contact with someone who was confirmed or suspected to have Coronavirus/COVID-19? No / Unsure 01/15/2023 8:09 AM EDT documented as of this encounter Plan of Treatment Upcoming Encounters Date Type Department Care Team (Late st Contact Info) Description 12/14/2024 10:00 AM EDT [facility] [address] [place] [address] Thanh Bates PA [address] [place] [address] 12/20/2024 9:30 AM EDT Office Visit [facility] [address] [place] [address] Leena Jordan PA [address] [place] [address] [place] [address] 07/17/2025 11:00 AM EDT Office [facility] [address] [place] [address] Rachel Vasquez PA [address] [place] [address] documented as of this encounter Visit Diagnoses Not on filedocumented in this encounter Care Teams Scada Engineer Relationship Specialty Start Date End Date Kojo Medina MD [address] [facility] 110 [place] [address] PCP - [employer] 04/04/20 Kojo Medina MD [address] [facility] 110 [place] [address] PCP - General Internal Medicine 08/18/22 documented as of this encounter
--- OUTSIDE RECORDS SUMMARY | 2024-12-05 14:06 | XMS_ITS | Encounter Summary ---
Author Organization [facility] Address [address] [place] [address] Care Team Providers Care Silk Hanger Name Role Phone Kojo Medina MD Unavailable [phone] Kojo Medina MD Primary Care Provider Encounter Details Date Type Department Care Team (Late st Contact Info) Description 08/03/[address] [facility] [address] [facility] [facility] 110 [place] [address] Kojo Medina MD [address] [facility] 110 [place] [address] Social History Tobacco Use Types Packs/Day Years [...] How often do you attend chur or samaritan services? Never 12/14/2023 Do you belong to any clubs o r organizations such as worship groups, unions, fraternal or athletic groups, or [...] care, and heating? Not very hard 12/14/2023 PHQ-2 Answer Date Recorded Patient Health Questionnaire-2 Score 0 08/02/2024 [facility] of Occupat ional Health - Occupational Stress [...] place to sleep or slept in a intermediate (including now)? No 10/14/2022 Housing Stability Vital Sign Answer Lenin e Recorded In the last 12 months, was t here a time when you were not able to pay the mortgage or rent on time? No 12/14/2023 In the past 12 months, how m any times have you moved where you were living? 0 12/14/2023 At any time in the past 12 m [facility], were you homeless or living in a intermediate (including now)? No 12/14/2023 Sex and Gender [...] Office Visit [facility] [address] [place] [address] Thanh Bates PA [address] [place] [place] [address] 12/20/2024 9:30 AM EDT Office Visit [facility] [address] [place] [address] [place] [address] Leena Jordan PA [address] [place] [address] [place] [address] 07/17/2025 11:00 AM EDT Office Visit [facility] [address] [place] [address] [place] [address] Rachel Vasquez PA [address] [place] [address] [place] [address] documented as of this encounter Visit Diagnoses Not on filedocumented in this encounter Care Teams Silk Hanger Relationship Specialty Start Date End Date Kojo Medina MD [address] [facility] [address] [place] [address] PCP - [employer] 04/04/20 Kojo Medina MD [address] [facility] [address] [place] [address] PCP - General Internal Medicine 08/18/22 documented as of this encounter
--- OUTSIDE RECORDS SUMMARY | 2024-12-05 14:06 | XMS_ITS | Encounter Summary ---
Author Organization [facility] Address [address] [place] [address] Care Team Providers Care Infantry Assaultman Name Role Phone Kojo Medina MD Unavailable [phone] Kojo Medina MD Primary Care Provider [phone] Encounter Details Date Type Department Care Team (Late st Contact Info) Description 07/26/[address] [facility] [address] [facility] 110 [place] [address] Kojo Medina MD 112 [facility] 110 [place] [address] Social History Tobacco Use Types Packs/Day Years [...] often do you attend chur ch or church services? Never 10/14/2022 Do you belong to any clubs o r organizations such as alevism groups, unions, fraternal or athletic groups, or [...] care, and heating? Not very hard 10/14/2022 [facility] - Occupational Stress Questionnaire Answer Date [...] place to sleep or slept in a fpc (including now)? No 10/14/2022 Sex and Gender [...] Visit [facility] [address] [place] [address] Thanh Bates PA [address] [place] [address] 12/20/2024 9:30 AM EDT [facility] [address] [facility] [address] [place] [address] Leena Jordan PA [address] [facility] [address] [place] [address] 07/17/2025 11:00 AM EDT Office Visit [facility] [address] [place] [address] [place] [address] Rachel Vasquez PA [address] [place] [address] [place] [address] documented as of this encounter Visit Diagnoses Not on filedocumented in this encounter Care Teams Infantry Assaultman Relationship Specialty Start Date End Date Kojo Medina MD 112 [facility] 110 [place] [address] PCP - [employer] 04/04/20 Kojo Medina MD 112 [facility] 110 [place] [address] PCP - General Internal Medicine 08/18/22 documented as of this encounter
--- OUTSIDE RECORDS SUMMARY | 2024-12-05 14:06 | XMS_ITS | Encounter Summary ---
Author Organization [facility] Address [address] [place] [address] Care Team Providers Care Handle Bar Assembler Name Role Phone Kojo Medina MD Unavailable [phone] Kojo Medina MD Primary Care Provider [phone] Encounter Details Date Type Department Care Team (Late st Contact Info) Description 01/13/[address] [facility] [address] [facility] 110 [place] [address] Kojo Medina MD [address] [facility] 110 [place] [address] Social History Tobacco Use Types Packs/Day Years [...] often do you attend chur ch or christian services? Never 12/14/2023 Do you belong to any clubs o r organizations such as holiness groups, unions, fraternal or athletic groups, or [...] care, and heating? Not very hard 12/14/2023 [facility] of Occupat ional Health - Occupational Stress [...] place to sleep or slept in a skilled nursing (including now)? No 10/14/2022 Housing Stability Vital [...] were you homeless or living in a skilled nursing (including now)? No 12/14/2023 Sex and Gender [...] Visit [facility] [address] [place] [address] Thanh Bates PA [address] [place] [address] 12/20/2024 9:30 AM EDT Office Visit [facility] [address] [facility] [address] [place] [address] Leena Jordan PA [address] [place] [address] [place] [address] 07/17/2025 11:00 AM EDT Office Visit [facility] [address] [place] [address] [place] [address] Rachel Vasquez PA [address] [place] [address] [place] [address] documented as of this encounter Visit Diagnoses Not on filedocumented in this encounter Care Teams Handle Bar Assembler Relationship Specialty Start Date End Date Kojo Medina MD [address] [facility] [address] [place] [address] PCP - [employer] 04/04/20 Kojo Medina MD [address] [facility] [address] [place] [address] PCP - General Internal Medicine 08/18/22 documented as of this encounter
--- OUTSIDE RECORDS SUMMARY | 2024-12-05 14:06 | XMS_ITS | Encounter Summary ---
Author Organization [facility] Address [address] [place] [address] Care Team Providers Care Slot Shift Supervisor Name Role Phone Kojo Medina MD Unavailable [phone] Kojo Medina MD Primary Care Provider [phone] Encounter Details Date Type Department Care Team (Late st Contact Info) Description 11/09/2023 Clinisync Result Encounter [facility] External Department Unsolicited Provider, Generic External Data Social History Tobacco Use Types Packs/Day Years [...] often do you attend chur ch or advent services? Never 10/14/2022 Do you belong to any clubs o r organizations such as christianity groups, unions, fraternal or athletic groups, or [...] care, and heating? Not very hard 10/14/2022 [facility] of Occupat ional Health - Occupational Stress [...] place to sleep or slept in a fci (including now)? No 10/14/2022 Sex and Gender Information Value Date Recorded Sex Assigned at Not on file Legal Sex Male 6:53 PM EDT Gender Identity Not on file Sexual Orientation Not on file documented as of this encounter Plan of Treatment Upcoming Encounters Date Type Department Care Team (Late st Contact Info) Description 12/14/2024 10:00 AM EDT Office [facility] [address] [place] [address] Thanh Bates PA [address] [place] [address] 12/20/2024 9:30 AM EDT Office Visit [facility] [address] [facility] 110 [place] [address] Leena Jordan PA [address] [facility] 110 [place] [address] 07/17/2025 11:00 AM EDT Office Visit [facility] [address] [place] [address] [place] [address] Rachel Vasquez PA [address] [place] [address] [place] [address] documented as of this encounter Procedures Procedure Name Priority Date/Time Associated Diagnosis Comments XR HIP LT MIN 2V 11/09/2023 2:05 PM EDT documented in this encounter Results * XR HIP LT MIN 2V (11/09/2023 2:05 PM EDT) Anatomical Region Laterality Modality Other 11/09/2023 2:05 PM EDT Narrative 11/09/2023 2:07 [place] [address] XRay Report Signed Patient: TAMMY WU MR#: [id number] : 1950 Acct:[id number] Age/Sex: 73 / M ADM Date: 11/08/23 Loc: RAD Attending Dr: Hannah Bailey M.D. Ordering Physician: Hannah Bailey M.D. Date of Service: 11/08/23 Procedure(s): XR hip LT min 2V Accession Number(s): [id number] cc: KOJO MEDINA ; Hannah Bailey M.D. [facility] [place] [address] Patient Name: TAMMY WU MRN: [id number] date: 1950 Sex: M Assigned Patient Location: [facility] Current Patient Location: Accession/Order Number: [id number] Exam Date: 11/08/2023 13:17 Report Date: 11/09/2023 14:05 At the request of: HANNAH BAILEY Procedure: XR hip LT min 2V EXAM: Left hip HISTORY: . LEFT HIP PAIN . COMPARISON: None. TECHNIQUE: 2 views FINDINGS: There is slight narrowing of the hip joint. Hypertrophic spurs are noted involving the femoral head as well as the acetabulum. No fracture or dislocation is noted. Surrounding soft tissues are unremarkable. 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 Electronically authenticated by: TAMMY VILLANUEVA Date: 11/09/2023 14:05 Dictated By: Tammy Villanueva M.D. Signed By: 11/09/23 1407 DD/ 1405 TD/TT: Transcripter: Procedure Note Radiology, Radiologist, - 11/09/2023 [place] [address] XRay Report Signed Patient: TAMMY WU MMR#: [id number] : 1950Acct:[id number] Age/Sex: 73 / MADM Date: 11/08/23 Loc: RAD Attending Dr: Hannah Bailey M.D. Ordering Physician: Hannah Bailey M.D. Date of Service: 11/08/23 Procedure(s): XR hip LT min 2V Accession Number(s): [id number] cc: KOJO MEDINA ; Hannah Bailey M.D. [facility] [place] [id number] Patient Name: TAMMY WU MRN: [facility]:[id number] date: 1950 Sex: M Assigned Patient Location: [facility] Current Patient Location: Accession/Order Number: [id number] Exam Date: 11/08/2023 13:17 Report Date: 11/09/2023 14:05 At the request of: HANNAH BAILEY Procedure: XR hip LT min 2V EXAM: Left hip HISTORY: . LEFT HIP PAIN . COMPARISON: None. TECHNIQUE: 2 views FINDINGS: There is slight narrowing of the hip joint. Hypertrophic spursare noted involving the femoral head as well as the acetabulum. No fracture or dislocation is noted. Surrounding soft tissues are unremarkable. 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 Electronically authenticated by: TAMMY VILLANUEVA Date: 11/09/2023 14:05 Dictated By: Tammy Villanueva M.D. Signed By:11/09/23 1407 DD/ 1405 TD/TT: Transcripter: us Generic External Data Provider [facility] Final Result documented in this encounter Visit Diagnoses Not on filedocumented in this encounter Care Teams Slot Shift Supervisor Relationship Specialty Start Date End Date Kojo Medina MD [address] [facility] [address] [place] [address] PCP - [employer] 04/04/20 Kojo Medina MD [address] [facility] [address] [place] [address] PCP - General Internal Medicine 08/18/22 documented as of this encounter
--- OUTSIDE RECORDS SUMMARY | 2024-12-05 14:06 | XMS_ITS | Encounter Summary ---
Author Organization [facility] Address [address] [place] [address] Care Team Providers Care Career Services Director Name Role Phone Kojo Medina MD Unavailable [phone] Kojo Medina MD Primary Care Provider Encounter Details Date Type Department Care Team (Late st Contact Info) Description 09/12/[address] [facility] [address] [place] [address] [place] [address] Shortness of breath; Wheezing Social History Tobacco Use Types Packs/Day Years [...] How often do you attend chur or episcopalian services? Never 12/14/2023 Do you belong to any clubs o r organizations such as latter-day groups, unions, fraternal or athletic groups, or [...] Date Recorded Patient Health Questionnaire-2 Score 0 09/11/2024 [facility] of Occupat ional Health - Occupational Stress [...] place to sleep or slept in a prison (including now)? No 10/14/2022 Housing Stability Vital [...] were you homeless or living in a prison (including now)? No 12/14/2023 Sex and Gender [...] Visit [facility] [address] [place] [address] Thanh Bates PA [address] [place] [address] 12/20/2024 9:30 AM EDT Office [facility] [address] [facility] [address] [place] [address] Leena Jordan PA [address] [facility] [address] [place] [address] 07/17/2025 11:00 AM EDT Office Visit [facility] [address] [place] [address] [place] [address] Rachel Vasquez PA [address] [place] [address] [place] [address] documented as of this encounter Visit Diagnoses Diagnosis Shortness of breath Wheezing documented in this encounter Care Teams Career Services Director Relationship Specialty Start Date End Date Kojo Medina MD [address] [facility] [address] [place] [address] PCP - [employer] 04/04/20 Kojo Medina MD [address] [facility] [address] [place] [address] PCP - General Internal Medicine 08/18/22 documented as of this encounter
--- OUTSIDE RECORDS SUMMARY | 2024-12-05 14:06 | XMS_ITS | Clinical Summary ---
Author Organization [facility] Address [id number] [place] [address] Care Team Providers Care Gandy Dancer Name Role Phone Kojo Medina MD Primary Care Provider [phone] Allergies No known active allergies Medications atorvastatin (LIPITOR) 40 mg tablet 40 mg. 01/16/2017 Active carvedilol (COREG) 25 mg tablet 25 mg. 02/08/2017 Active metFORMIN (GLUCOPHAGE) 1000 mg tablet 2 times daily (with meals) 03/21/2017 Active insulin asp prt-insulin aspart (NovoLOG Mix 70-30 FlexPen) 100 unit/mL (70-30) insulin pen 70 Units 2 times daily (with meals) 03/18/2017 Active tamsulosin (FLOMAX) 0.4 mg capsule,extended release 24hr 03/18/2017 Active lisinopril (PRINIVIL,ZESTRI L) 40 mg tablet Take 40 mg by mouth daily. Active ibuprofen (ADVIL,MOTRIN) 600 mg tablet Take 600 mg by mouth every 6 (six) hours as needed for pain. Active traMADol (ULTRAM) 50 mg tablet Take 50 mg by mouth every 6 (six) hours as needed for pain. Active ciprofloxacin HCl (CIPRO) 500 mg tablet Take 1 tablet (500 mg total) by mouth 2 (two) times a day. 28 tablet 04/06/2017 Active Active Problems No known active problems Social History Tobacco Use Types Packs/Day Years Used Date Smoking Tobacco: Former Smokeless Tobacco: Never Alcohol Use Standard Drinks/Week Comments No 0 (1 standard drink = 0.6 oz pur e alcohol) Childcare Answer Date Recorded Childcare Unknown 09/13/2018 Employment Answer Date Recorded Employment Unknown 09/13/2018 Purpose - Life Answer Date Recorded Purpose and direction in life Unknown Sex and Gender Information Value Date Recorded Sex Assigned at Not on file Legal Sex Male 12:07 PM EDT Gender Identity Not on file Sexual Orientation Not on file Last Filed Vital Signs Vital Sign Reading Time Taken Comments Blood Pressure 168/92 04/22/2017 9:25 AM EST Pulse - - Temperature - - Respiratory Rate - - Oxygen Saturation - - Inhaled Oxygen Concentration - - Weight 132.5 kg (292 lb) 04/22/2017 9:25 AM EST Height 172.7 cm (5' 8 ) 04/22/2017 9:25 AM EST Body Mass Index 44.4 04/22/2017 9:25 AM EST Plan of Treatment Health Maintenance Due Date Last Done Comments Depression Screening 1962 Tobacco Screening 1962 Adult BMI Screening 1968 DTaP,Tdap and Td Vaccines (1 - Tdap) 1969 Abdominal Aortic Aneurysm (A AA) Screen 2015 Fall Risk Screening 2015 COVID-19 Vaccine (2023-2 5 season) 2023 02/09/2021, 06/26/2020, 05/29/2020 Influenza Vaccine 12/03/2024 01/22/2022, , 01/03/2020, Additional history exists Zoster (Shingles) Vaccine Completed 12/21/2021, Medical [place] [id number] [employer] MEDICARE Care Teams Gandy Dancer Relationship Specialty Start Date End Date Kojo Medina MD [address] [facility] 110 [place] [address] PCP - General Internal Medicine 04/06/17
--- OUTSIDE RECORDS SUMMARY | 2024-12-05 14:06 | XMS_ITS | Clinical Summary ---
Author Organization [facility] Address [address] [place] [address] Care Team Providers Care Pricing Actuary Name Role Phone Unavailable Primary Care Provider Unavailabl e Social History Tobacco Use Types Packs/Day Years Used Date Smoking Tobacco: Never Assessed Sex and Gender Information Value Date Recorded Sex Assigned at Not on file Legal Sex Male 9:36 AM EST Gender Identity Not on file Sexual Orientation Not on file Plan of Treatment Health Maintenance Due Date Last Done Comments HEPATITIS C VIRUS SCREENING 1950 TETANUS 1950 TDAP (ADULT) 1969 LIPID SCREENING 1990 COLORECTAL CANCER SCREENING DISCUSSION 1995 PNEUMOCOCCAL VACCINE SERIES (1 of 1 - PCV) 2000 ZOSTER (SHINGLES) VACCINE (1 of 2) 2000 ABDOMINAL AORTIC ANEURYSM HI GH RISK SCREEN 2015 COVID-19 VACCINE ( - 2023-2 5 season) 2023 INFLUENZA VACCINE (#1) 2024 RSV VACCINE (1 - 1-dose 75+ series) 2025 HEP B VACCINE Aged Out No longer meeta hong based on patient's age to complete this topic
--- OUTSIDE RECORDS SUMMARY | 2024-12-05 14:06 | XMS_ITS | Encounter Summary ---
Author Organization [facility] Address [address] [place] [address] Care Team Providers Care Emergency Department Physician Name Role Phone Kojo Medina MD Unavailable [phone] Kojo Medina MD Primary Care Provider [phone] Encounter Details Date Type Department Care Team (Late st Contact Info) Description 09/18/[address] [facility] [address] [facility] 110 [place] [address] Kojo Medina MD [address] [facility] 110 [place] [address] Social History Tobacco Use Types Packs/Day Years [...] How often do you attend chur or evangelical services? Never 12/14/2023 Do you belong to any clubs o r organizations such as quaker groups, unions, fraternal or athletic groups, or [...] Recorded Patient Health Questionnaire-2 Score 0 09/11/2024 [facility] of Occupat ional Health - Occupational Stress [...] place to sleep or slept in a mcc (including now)? No 10/14/2022 Housing Stability Vital Sign Answer Lenin e Recorded In the last 12 months, was t here a time when you were not able to pay the mortgage or rent on time? No 12/14/2023 In the past 12 months, how m any times have you moved where you were living? 0 12/14/2023 At any time in the past 12 m [facility], were you homeless or living in a mcc (including now)? No 12/14/2023 Sex and Gender [...] Office Visit [facility] [address] [place] [address] Thanh Bates PA [address] [place] [address] 12/20/2024 9:30 AM EDT [facility] [address] [place] [address] [place] [address] Leena oJrdan PA [address] [place] [address] [place] [address] 07/17/2025 11:00 AM EDT Office Visit [facility] [address] [place] [address] Rachel Vasquez PA [address] [place] [place] [address] documented as of this encounter Visit Diagnoses Not on filedocumented in this encounter Care Teams Emergency Department Physician Relationship Specialty Start Date End Date Kojo Medina MD [address] [facility] [address] [place] [address] PCP - [employer]et[employer] 04/04/20 Kojo Medina MD [address] [facility] [address] [place] [address] PCP - General Internal Medicine 08/18/22 documented as of this encounter
--- OUTSIDE RECORDS SUMMARY | 2024-12-05 14:06 | XMS_ITS | Clinical Summary ---
Author Organization [facility] Address [address] [facility], [address] [place] [address] Care Team Providers Care Textile Engraver Name Role Phone Kojo Medina MD Primary Care Provider [phone] Allergies No known active allergies Medications atorvastatin (LIPITOR) 40 MG tablet 40 mg daily 01/16/2017 Active carvedilol (COREG) 25 MG tablet 25 mg 2 times daily 02/08/2017 Active NOVOLOG MIX 70/30 FLEXPEN (70-30) 100 UNIT/ML injection 70 Units 2 times daily (with meals) 03/18/2017 Active metFORMIN (GLUCOPHAGE) 1000 MG tablet 2 times daily (with meals) 03/21/2017 Active tamsulosin (FLOMAX) 0.4 MG capsule 03/18/2017 Active Active Problems Problem Noted Date Diagnosed Date Morbid obesity with BMI of 45.0-49.9, adult 03/05 Family History Medical History Relation Name Comments Heart Attack Father Cancer Mother Diabetes Mother Relation Name Status Comments Father Mother Social History Tobacco Use Types Packs/Day Years Used Date Smoking Tobacco: Former Cigarettes Q uit: 03/23/2000 Smokeless Tobacco: Former Snuff, Chew Alcohol Use Standard Drinks/Week Comments Yes 0 (1 standard drink = 0.6 oz pur e alcohol) Sex and Gender Information Value Date Recorded Sex Assigned at Not on file Legal Sex Male 5:52 PM EST Gender Identity Not on file Sexual Orientation Not on file Last Filed Vital Signs Vital Sign Reading Time Taken Comments Blood Pressure 200/88 03/23/2017 3:37 PM EST rep eat Pulse 54 03/23/2017 2:57 PM EST Temperature 37.1 C (98.8 F) 03/23/2017 2:57 PM EST Respiratory Rate 20 03/23/2017 2:57 PM EST Oxygen Saturation - - Inhaled Oxygen Concentration - - Weight 140.4 kg (309 lb 8 oz) 03/23/2017 2:57 PM EST Height 172.7 cm (5' 8 ) 03/23/2017 2:57 PM EST Body Mass Index 47.06 03/23/2017 2:57 PM EST Plan of Treatment Not on file Insurance [employer] MEDICARE Care Teams Textile Engraver Relationship Specialty Start Date End Date Kojo Medina MD [address] [facility] [address] [place] [address] PCP - General Internal Medicine 03/23/17
--- OUTSIDE RECORDS SUMMARY | 2024-12-05 14:06 | XMS_ITS | Encounter Summary ---
Author Organization [facility] Address [address] [place] [address] Care Team Providers Care Enterprise Integration Architect Name Role Phone Kojo Medina MD Unavailable [phone] Kojo Medina MD Primary Care Provider [phone] Encounter Details Date Type Department Care Team (Late st Contact Info) Description 10/15/[address] [facility] [address] [facility] 110 [place] [address] Kojo Medina MD [address] [place] [facility] 110 [place] [address] Social History Tobacco Use Types Packs/Day Years [...] How often do you attend chur or sabianism services? Never 12/14/2023 Do you belong to any clubs o r organizations such as caodaism groups, unions, fraternal or athletic groups, or [...] Recorded Patient Health Questionnaire-2 Score 0 09/11/2024 [facility] [place] of Occupat ional Health - Occupational Stress [...] any time in the past 12 m [facility], were you homeless or living in a [...] Office Visit [facility] [address] [place] [address] Thanh Bates PA [address] [place] [address] 12/20/2024 9:30 AM EDT Office Visit [facility] [address] [place] [address] [place] [address] Leena Jordan PA [address] [place] [address] [place] [address] 07/17/2025 11:00 AM EDT Office Visit [facility] [address] [place] [address] [place] [address] Rachel Vasquez PA [address] [place] [address] [place] [address] documented as of this encounter Visit Diagnoses Not on filedocumented in this encounter Care Teams Enterprise Integration Architect Relationship Specialty Start Date End Date Kojo Medina MD [address] [facility] [address] [place] [address] PCP - [employer] 04/04/20 Kojo Medina MD [address] [facility] [address] [place] [address] PCP - General Internal Medicine 08/18/22 documented as of this encounter
--- OUTSIDE RECORDS SUMMARY | 2024-12-05 14:06 | XMS_ITS | Encounter Summary ---
Author Organization [facility] Address [address] [place] [address] Care Team Providers Care Acoustic Intelligence Specialist Name Role Phone Kojo Medina MD Unavailable [phone] Kojo Medina MD Primary Care Provider [phone] Encounter Details Date Type Department Care Team (Late st Contact Info) Description 10/11/[address] [facility] [address] [facility] 110 [place] [address] Kojo Medina MD [address] [place] [facility] 110 [place] [address] Social History Tobacco Use Types Packs/Day Years [...] often do you attend chur ch or hindu services? Never 10/14/2022 Do you belong to any clubs o r organizations such as rastafari groups, unions, fraternal or athletic groups, or [...] care, and heating? Not very hard 10/14/2022 [facility] Health - Occupational Stress Questionnaire Answer Date [...] place to sleep or slept in a snf (including now)? No 10/14/2022 Sex and Gender [...] Visit [facility] [address] [place] [address] Thanh Bates PA [address] [place] [address] 12/20/2024 9:30 AM EDT [facility] [address] [facility] [address] [place] [address] Leena Jordan PA [address] [facility] [address] [place] [address] 07/17/2025 11:00 AM EDT Office Visit [facility] [address] [place] [address] [place] [address] Rachel Vasquez PA [address] [place] [address] [place] [address] documented as of this encounter Visit Diagnoses Not on filedocumented in this encounter Care Teams Acoustic Intelligence Specialist Relationship Specialty Start Date End Date Kojo Medina MD [address] [facility] 110 [place] [address] PCP - [employer] 04/04/20 Kojo Medina MD [address] [facility] 110 [place] [address] PCP - General Internal Medicine 08/18/22 documented as of this encounter
--- OUTSIDE RECORDS SUMMARY | 2024-12-05 14:06 | XMS_ITS | Encounter Summary ---
Author Organization [facility] Address [address] [place] [address] Care Team Providers Care Runner On Name Role Phone Kojo Medina MD Unavailable [phone] Kojo Medina MD Primary Care Provider [phone] Encounter Details Date Type Department Care Team (Late st Contact Info) Description 12/22/[address] [facility] [address] [facility] 110 [place] [address] Kojo Medina MD [address] [facility] 110 [place] [address] Social History Tobacco Use Types Packs/Day Years Used Date Smoking Tobacco: Former Cigarettes Smokeless Tobacco: Never Comments:Last smoked: >10 ye [...] often do you attend chur ch or anabaptist services? Never 10/14/2022 Do you belong to any clubs o r organizations such as confucianist groups, unions, fraternal or athletic groups, or [...] care, and heating? Not very hard 10/14/2022 [facility] ions[facility] Health - Occupational Stress Questionnaire Answer Date [...] in a fdc (including now)? No 10/14/2022 Sex and Gender [...] Visit [facility] [address] [place] [address] Thanh Bates PA [address] [place] [address] 12/20/2024 9:30 AM EDT Office [facility] [address] [facility] 110 [place] [address] Leena Jordan PA [address] [facility] [address] [place] [address] 07/17/2025 11:00 AM EDT Office Visit [facility] [address] [place] [address] [place] [address] Rachel Vasquez PA [address] [place] [address] [place] [address] documented as of this encounter Visit Diagnoses Not on filedocumented in this encounter Care Teams Runner On Relationship Specialty Start Date End Date Kojo Medina MD [address] [place] [address] [address] PCP - [employer] 04/04/20 Kojo Medina MD [address] [place] [address] [address] PCP - General Internal Medicine 08/18/22 documented as of this encounter
--- OUTSIDE RECORDS SUMMARY | 2024-12-05 14:06 | XMS_ITS | Encounter Summary ---
Author Organization [facility] Address [address] [place] [address] Care Team Providers Care Group Contract Analyst Name Role Phone Kojo Medina MD Unavailable [phone] Kojo Medina MD Primary Care Provider [phone] Encounter Details Date Type Department Care Team (Late st Contact Info) Description 10/01/[address] [facility] [address] [facility] 110 [place] [address] Kojo Medina MD [address] [place] [facility] 110 [place] [address] Social History Tobacco Use Types Packs/Day Years [...] How often do you attend chur or advent services? Never 12/14/2023 Do you belong to any clubs o r organizations such as anabaptism groups, unions, fraternal or athletic groups, or [...] Health Questionnaire-2 Score 0 09/11/2024 [facility] of Occupat ional Health - Occupational Stress [...] in a snf (including now)? No 10/14/2022 Housing Stability Vital Sign Answer Lenin e Recorded In the last 12 months, was t here a time when you were not able to pay the mortgage or rent on time? No 12/14/2023 In the past 12 months, how m any times have you moved where you were living? 0 12/14/2023 At any time in the past 12 m [facility], were you homeless or living in a snf (including now)? No 12/14/2023 Sex and Gender [...] Office Visit [facility] [address] [place] [address] Thanh Bates PA [address] [place] [address] 12/20/2024 9:30 AM EDT Office Visit [facility] [address] [place] [address] [place] [address] Leena Jordan PA [address] [place] [address] [place] [address] 07/17/2025 11:00 AM EDT Office Visit [facility] [address] [place] [address] [place] [address] Rachel Vasquez PA [address] [place] [address] [place] [address] documented as of this encounter Visit Diagnoses Not on filedocumented in this encounter Care Teams Group Contract Analyst Relationship Specialty Start Date End Date Kojo Medina MD [address] [facility] [address] [place] [address] PCP - [employer] 04/04/20 Kojo Medina MD [address] [facility] [address] [place] [address] PCP - General Internal Medicine 08/18/22 documented as of this encounter
--- OUTSIDE RECORDS SUMMARY | 2024-12-05 14:06 | XMS_ITS | Encounter Summary ---
Author Organization [facility] Address [address] [facility] [place] [address] Care Team Providers Care Gas Main Fitter Name Role Phone Kojo Medina MD Unavailable [phone] Kojo Medina MD Primary Care Provider [phone] Encounter Details Date Type Department Care Team (Late Contact Info) Description 09/01/2022 Abstract [facility] [address] [facility] 110 [place] [address] Kojo Medina MD [address] [place] [facility] 110 [place] [address] Social History Tobacco Use Types Packs/Day Years Used Date Smoking Tobacco: Former Cigarettes Comments:Last smoked: >10 ye ars Alcohol Use [...] suspected to have Coronavirus/COVID-19? No / Unsure 08/18/2022 3:47 PM EDT documented as of this encounter Plan of Treatment Upcoming Encounters Date Type Department Care Team (Late Contact Info) Description 12/14/2024 10:00 AM EDT Office Visit [facility] [address] [place] [address] Thanh Bates, PA [address] [place] [address] 12/20/2024 9:30 AM EDT [facility] [address] [place] [address] [place] [address] Leena Jordan PA [address] [place] [address] [place] [address] 07/17/2025 11:00 AM EDT Office Visit [facility] [address] [address] [place] [address] Rachel Vasquez PA [address] [place] [address] [place] [address] documented as of this encounter Visit Diagnoses Not on filedocumented in this encounter Care Teams Gas Main Fitter Relationship Specialty Start Date End Date Kojo Medina MD [address] [place] [address] [place] [address] PCP - [employer] 04/04/20 Kojo Medina MD [address] [place] [address] [place] [address] PCP - General Internal Medicine 08/18/22 documented as of this encounter
--- OUTSIDE RECORDS SUMMARY | 2024-12-05 14:06 | XMS_ITS | Encounter Summary ---
Author Organization [facility] Address [address] [place] [address] Care Team Providers Care Deck Steward Name Role Phone Kojo Medina MD Unavailable [phone] Kojo Medina MD Primary Care Provider [phone] Encounter Details Date Type Department Care Team (Late st Contact Info) Description 09/18/[address] [facility] [address] [facility] 110 [place] [address] Kojo Medina MD [address] [place] [facility] 110 [place] [address] Social History Tobacco Use Types Packs/Day Years [...] How often do you attend chur or yarsani services? Never 12/14/2023 Do you belong to any clubs o r organizations such as tenriism groups, unions, fraternal or athletic groups, or [...] Recorded Patient Health Questionnaire-2 Score 0 09/11/2024 [facility] of Occupat ional Health - Occupational Stress [...] place to sleep or slept in a [place] facility (including now)? No 10/14/2022 Housing Stability Vital Sign Answer Lenin e Recorded In the last 12 months, was t here a time when you were not able to pay the mortgage or rent on time? No 12/14/2023 In the past 12 months, how m any times have you moved where you were living? 0 12/14/2023 At any time in the past 12 m [facility], were you homeless or living in a [place] (including now)? No 12/14/2023 Sex and Gender [...] Office Visit [facility] [address] [place] [address] Thanh Bates PA [address] [place] [address] 12/20/2024 9:30 AM EDT Office Visit [facility] [address] [place] [address] [place] [address] Leena Jordan PA [address] [place] [address] [place] [address] 07/17/2025 11:00 AM EDT Office Visit [facility] [address] [address] [place] [address] Rachel Vasquez PA [address] [place] [address] [place] [address] documented as of this encounter Visit Diagnoses Not on filedocumented in this encounter Care Teams Deck Steward Relationship Specialty Start Date End Date Kojo Medina MD [address] [facility] [address] [place] [address] PCP - [employer]et[employer] 04/04/20 Kojo Medina MD [address] [facility] [address] [place] [address] PCP - General Internal Medicine 08/18/22 documented as of this encounter
--- OUTSIDE RECORDS SUMMARY | 2024-12-05 14:06 | XMS_ITS | Encounter Summary ---
Author Organization [facility] Address [address] [place] [address] Care Team Providers Care Operation Specialist Name Role Phone Kojo Medina MD Unavailable [phone] Kojo Medina MD Primary Care Provider [phone] Encounter Details Date Type Department Care Team (Late st Contact Info) Description 10/11/[address] [facility] [address] [facility] 110 [place] [address] Kojo Medina MD [address] [place] [facility] 110 [place] [address] Social History Tobacco Use Types Packs/Day Years [...] often do you attend chur ch or islam services? Never 10/14/2022 Do you belong to [...] care, and heating? Not very hard 10/14/2022 [facility] Health - Occupational Stress Questionnaire Answer Date [...] place to sleep or slept in a retirement (including now)? No 10/14/2022 Sex and Gender [...] Visit [facility] [address] [place] [address] Thanh Bates PA [address] [place] [address] 12/20/2024 9:30 AM EDT Office [facility] [address] [facility] [address] [place] [address] Leena Jordan PA [address] [facility] [address] [place] [address] 07/17/2025 11:00 AM EDT Office Visit [facility] [address] [place] [address] [place] [address] Rachel Vasquez PA [address] [place] [address] [place] [address] documented as of this encounter Visit Diagnoses Not on filedocumented in this encounter Care Teams Operation Specialist Relationship Specialty Start Date End Date Kojo Medina MD [address] [place] [facility] 110 [place] [address] PCP - [employer] 04/04/20 Kojo Medina MD [address] [place] [facility] 110 [place] [address] PCP - General Internal Medicine 08/18/22 documented as of this encounter
--- OUTSIDE RECORDS SUMMARY | 2024-12-05 14:06 | XMS_ITS | Encounter Summary ---
Author Organization [facility] Address [address] [place] [address] Care Team Providers Care Communications Director Name Role Phone Kojo Medina MD Unavailable [phone] Kojo Medina MD Primary Care Provider [phone] Encounter Details Date Type Department Care Team (Late st Contact Info) Description 09/18/[address] [facility] [address] [facility] 110 [place] [address] Kojo Medina MD [address] [facility] 110 [place] [address] Social History Tobacco Use Types Packs/Day Years [...] any clubs o r organizations such as anabaptist groups, unions, fraternal or athletic groups, or [...] Recorded Patient Health Questionnaire-2 Score 0 09/11/2024 [facility] [place] of Occupat ional Health - Occupational Stress [...] place to sleep or slept in a longterm (including now)? No 10/14/2022 Housing Stability Vital Sign Answer Lenin e Recorded In the last 12 months, was t here a time when you were not able to pay the mortgage or rent on time? No 12/14/2023 In the past 12 months, how m any times have you moved where you were living? 0 12/14/2023 At any time in the past 12 m [facility], were you homeless or living in a longterm (including now)? No 12/14/2023 Sex and Gender [...] Office Visit [facility] [address] [place] [address] Thanh Bates PA [address] [place] [address] 12/20/2024 9:30 AM EDT Office Visit [facility] [address] [place] [address] [place] [address] Leena Jordan PA [address] [place] [address] [place] [address] 07/17/2025 11:00 AM EDT Office Visit [facility] [address] [address] [place] [address] Rachel Vasquez PA [address] [place] [address] [place] [address] documented as of this encounter Visit Diagnoses Not on filedocumented in this encounter Care Teams Communications Director Relationship Specialty Start Date End Date Kojo Medina MD [address] [place] [address] [place] [address] PCP - [employer] 04/04/20 Kojo Medina MD [address] [place] [address] [place] [address] PCP - General Internal Medicine 08/18/22 documented as of this encounter
--- OUTSIDE RECORDS SUMMARY | 2024-12-05 14:06 | XMS_ITS | Clinical Summary ---
Author Organization [facility] Address [address] [place] [address] Care Team Providers Care Energy Derivatives Trader Name Role Phone Kojo Medina MD Unavailable [phone] Kojo Medina MD Primary Care Provider Allergies Active Allergy Reactions Criticality Noted Date Comments Tetanus Toxoid, Adsorbed Other 05/26/2023 Medications sildenafil (Viagra) 50 MG tabletIndicatio ns:Erectile dysfunction due to diseases classified elsewhere TAKE 1 TABLET BY MOUTH ONCE DAILY NEEDED 30 tablet 08/11/19 24 Active amLODIPine (Norvasc) 10 MG tablet Take 10 mg by mouth Daily 01/13/20 24 Active spironolactone (Aldactone) 25 MG tablet Take 25 mg by mouth Daily 12/10/19 24 Active metFORMIN (Glucophage) 500 MG tabletIndicatio ns:Type 2 diabetes mellitus with other specified complication, with long-term current use of insulin (HCC) Take 1 tablet (500 mg) by mouth in the morning and 1 tablet (500 mg) in the evening. Take with meals. 60 tablet 11 02/17/20 24 025 Active Insulin Syringe-Needle U-100 (BD Veo Insulin Syringe U/F) 31G X 15/64 1 ML miscIndications :Type 2 diabetes mellitus with other specified complication, unspecified whether intermodal customer service insulin use (HCC) USE 1 SYRINGE TWICE DAILY 200 each 3 04/11/19 25 Active Continuous Glucose Sensor (FreeStyle Radha 3 Sensor) miscIndications :Type 2 diabetes mellitus with other specified complication, with long-term current use of insulin (HCC) Apply 1 patch topically every 14 (fourteen) days 2 each 08/03/19 25 Active insulin NPH-insulin regular (NovoLIN 70/30) (70-30) 100 UNIT/ML injectionIndica tions:Type 2 diabetes mellitus with other specified complication, with long-term current use of insulin ([facility]) Inject 30 Units under the skin in the morning and 30 Units in the evening. Inject before meals. 08/03/19 25 Active Continuous Glucose Vehicle Inspector (FreeStyle Radha 3 Darwin) deviceIndicatio ns:Type 2 diabetes mellitus with other specified complication, with long-term current use of insulin ([facility]) USE DIRECTED 1 each 08/29/19 25 Active triamterene-hyd rochlorothiazid e (Maxzide-25) 37.5-25 MG tabletIndicatio ns:Benign essential hypertension TAKE 1 TABLET BY MOUTH ONCE DAILY IN THE MORNING 100 tablet 3 09/14/19 25 Active cyclobenzaprine (Flexeril) 10 MG tabletIndicatio ns:Type 2 diabetes mellitus with other specified complication, with long-term current use of insulin ([facility]) Take 1 tablet (10 mg) by mouth every 8 (eight) hours if needed for muscle spasms 60 tablet 2 09/18/19 25 Active mirabegron ER (Myrbetriq) 50 MG 24 hr tablet Take 50 mg by mouth Daily 11/15/19 25 Active pravastatin (Pravachol) 20 MG tablet Take 20 mg by mouth in the morning. 10/13/19 25 026 Active semaglutide (Ozempic, 1 MG/DOSE,) 4 MG/3ML solution pen-injectorInd ications:Type 2 diabetes mellitus with other specified complication, with long-term current use of insulin ([facility]) Inject 1 mg under the skin 1 (one) time per week 3 mL 5 11/20/19 25 Active Farxiga 10 MGIndications:T ype 2 diabetes mellitus with other specified complication, with long-term current use of insulin ([facility]) Take 1 tablet (10 mg) by mouth Daily 30 tablet 5 11/20/19 25 Active carvedilol (Coreg) 6.25 MG tabletIndicatio ns:Resistant hypertension Take 1 tablet (6.25 mg) by mouth in the morning and 1 tablet (6.25 mg) in the evening. Take with meals. 180 tablet 3 05/07/19 025 Discontinued(Do se adjustment) oxybutynin (Ditropan) 5 MG tabletIndicatio ns:OAB (overactive bladder) Take 1 tablet (5 mg) by mouth in the morning and 1 tablet (5 mg) before bedtime. 60 tablet 5 08/03/19 025 Discontinued Ozempic, 0.25 or 0.5 MG/DOSE, 2 MG/3ML solution pen-injector Inject 0.5 mg under the skin every 7 (seven) days 08/28/19 025 Discontinued(Do se adjustment) carvedilol (Coreg) 3.125 MG tablet Take 3.125 mg by mouth in the morning and 3.125 mg in the evening. Take with meals. 10/13/19 025 Discontinued Active Problems Problem Noted Date Diagnosed Date OAB (overactive bladder) 11/19/2024 Statin intolerance 09/17/2024 Accelerated hypertension 02/01/2024 Arthritis 02/01/2024 Atypical chest pain 02/01/2024 History of anticoagulant therapy 02/01/2024 Microhematuria 02/01/2024 Former smoker 01/13/2024 Junctional rhythm 01/13/2024 Sinus bradycardia 01/13/2024 Shortness of breath 01/03/2024 Acute left-sided low back pain with left-sided s ciatica 09/01/2022 Acute vestibular syndrome 09/01/2022 Diabetic mononeuropathy 09/01/2022 Erectile dysfunction due to diseases classified elsewhere 09/01/2022 Fatty liver 09/01/2022 Insomnia 09/01/2022 Lumbar degenerative disc disease 09/01/2022 Lumbar radiculopathy 09/01/2022 Mixed hyperlipidemia 09/01/2022 Morbidly obese 09/01/2022 Nephrolithiasis 09/01/2022 Primary osteoarthritis of left hip 09/01/2022 Pulse irregularity 09/01/2022 Sciatica of left side 09/01/2022 Type 2 diabetes mellitus with other specified co mplication 09/01/2022 Benign essential hypertension 06/25/2008 Diverticulosis of colon 06/25/2008 Lower urinary tract symptoms due to benign prostatic hyperplasia 06/25/2008 Lumbosacral spondylosis without myelopathy 06/25 Resolved Problems Problem Noted Date Diagnosed Date Resolved Date Hypertension 02/01/2024 11/19/2024 Carpal tunnel syndrome 09/01/202211/19 First degree atrioventricular block 09/01/2022 11/19/2024 Mild depression 09/01/2022 11/19/2024 DM w/o complication type II 09/01/2022 11/19/2024 Ulnar nerve entrapment 09/01/202211/19 Encounters Date Type Department Care Team Description 11/19/2024 11:00 AM EDT Office Visit [facility] [address] [facility] [address] [place] [address] Leena Jordan PA Benign essential hypertension (Primary Dx); Type 2 diabetes mellitus with other specified complication, with long-term current use of insulin (HCC); Morbidly obese ([facility]); BMI 40.0-44.9, adult ([facility]) 11/19/[address] [facility] [address] [facility] [address] [place] [address] Leena Jordan PA 11/19/2024 Travel 11/13/2024 Travel 10/15/[address] [facility] [address] [facility] [address] [place] [address] Kojo Medina MD 10/01/[address] [facility] [address] [facility] [address] [place] [address] Kojo Medina MD 09/18/[address] [facility] [address] [facility] [address] [place] [address] Kojo Medina MD 09/18/[address] [facility] [address] [place] [address] [place] [address] Kojo Medina MD 09/18/[address] [facility] [address] [place] [address] [place] [address] Kojo Medina MD 09/17/2024 9:30 AM EDT [facility] [address] [place] [address] [place] [address] Kojo Medina MD Routine general medical examination at health care facility (Primary Dx); ACP (advance care planning); Type 2 diabetes mellitus with other specified complication, with long-term current use of insulin ([facility]); Morbidly obese ([facility]); Mixed hyperlipidemia ; Benign essential hypertension ; Statin intolerance; Myalgia 09/17/[address] [facility] [address] [place] [address] [place] [address] Kojo Medina MD 09/17/2024 Travel 09/13/[address] [facility] [address] [place] [address] [place] [address] Kojo Medina MD Benign essential hypertension 09/12/[address] [facility] [address] [place] [address] [place] [address] Shortness of breath; Wheezing 09/11/2024 Travel from Last 3 Months Immunizations Immunization Administration Dates Next Due Influenza, High Dose Seasonal, Preservative Free 01/23/2022 Influenza, High-dose Seasona l, Quadrivalent, Preservative Free 01/25/2018 Influenza, Seasonal, Quadrivalent, Adjuvanted Influenza, injectable, quadrivalent, preservativ e free 01/02/2019,01/27/2016 Influenza, seasonal, injectable 01/18/2023,01/02 Influenza, seasonal, intradermal, preservative f ree 03/29/2017,04/18/2013 Pneumococcal Conjugate PCV 13 04/04/2016 Pneumococcal Polysaccharide PPSV23 01/07/2016, Zoster, Recombinant 12/21/2021,12/02/2020 Family History Medical History Relation Name Comments Diabetes Father Samy Heart attack Father Samy Heart disease Father Samy Hypertension Father Samy Cancer Mother Naty Diabetes Mother Naty Hyperlipidemia Mother Naty Hypertension Mother Naty Diabetes Sibling Hypertension Sibling Relation Name Status Comments Father Samy Mother Naty Sibling Social History Tobacco Use Types Packs/Day Years Used Date Smoking Tobacco: Former Cigarettes 2 35 0 04/04/1964 - 1999 Smokeless Tobacco: Former Snuff, Chew Quit: 04/04/1989 Tobacco Cessation:Counseling Given: Not Answered Comments:Last smoked: >10 years Alcohol Use Standard Drinks/Week Comments Yes 2 (1 standard drink = 0.6 oz pur [...] often do you attend chur ch or hinduism services? Never 12/14/2023 Do you belong to any clubs o r organizations such as religion groups, unions, fraternal or athletic groups, or [...] Date Recorded Patient Health Questionnaire-2 Score 0 11/19/2024 [facility] of Occupat ional Health - Occupational Stress [...] place to sleep or slept in a residential (including now)? No 10/14/2022 Housing Stability Vital [...] in the past 12 m [facility], were you homeless or living in a residential (including now)? No 12/14/2023 Sex and Gender Information Value Date Recorded Sex Assigned at Not on file Legal Sex Male 6:53 PM EDT Gender Identity Not on file Sexual Orientation Not on file Last Filed Vital Signs Vital Sign Reading Time Taken Comments Blood Pressure 138/72 11/19/2024 10:40 AM EDT Pulse 52 11/19/2024 10:40 AM EDT Temperature 36.6 C (97.9 F) 01/24/2024 10:25 AM EDT Respiratory Rate - - Oxygen Saturation 97% 11/19/2024 10:40 AM EDT Inhaled Oxygen Concentration - - Weight 133 kg (294 lb) 11/19/2024 10:40 AM EDT Height 172.7 cm (5' 8 ) 11/19/2024 10:40 AM EDT Body Mass Index 44.7 11/19/2024 10:40 AM EDT Plan of Treatment Upcoming Encounters Date Type Department Care Team (Late st Contact Info) Description 12/14/2024 10:00 AM EDT [facility] [address] [place] [address] Thanh Bates PA [address] [place] [address] 12/20/2024 9:30 AM EDT [facility] [address] [facility] [address] [place] [address] Leena Jordan PA [address] [facility] [address] [place] [id number] 07/17/2025 11:00 AM EDT Office Visit [facility] [address] [place] [address] [place] [address] Rachel Vasquez PA [address] [place] [address] [place] [address] Health Maintenance Due Date Last Done Comments CT Colonography 1950 FIT-DNA 1950 FIT 1950 FOBT 1950 Sigmoidoscopy 1950 Colonoscopy 07/29/2024 07/29/2014, 07/29/2014 Colorectal Cancer Screening 07/29/2024 Influenza Vaccine (#1) 2024 , 01/23/2022, 01/22/2022, Additional history exists Diabetes: Retinopathy Screening 12/16/2024 12/16/2022, 12/14/2021, 12/01/2020, Additional history exists Diabetes: Hemoglobin A1C 02/19/2025 025, 09/17/2024, 08/02/2024, Additional history exists Medicare Annual Wellness (AWV) 09/17/2025 0 09/17/2024, 02/17/2024, 01/20/2023, Additional history exists Diabetes: Urine Protein Screening 11/19/2025 11/19/2024, 07/25/2023, 09/06/2019, Additional history exists Pneumococcal Vaccine: 65+ Years Completed 04/04/2016, 01/07/2016, 07/29/2015 Procedures Procedure Name Priority Date/Time Associated Diagnosis Comments MICROALBUMIN / CREATININE URINE RATIO Routine 11/19/2024 11:18 AM EDT Type 2 diabetes mellitus with other specified complication, with long-term current use of insulin (HCC) POCT GLYCATED HEMOGLOBIN, TOTAL Routine 11/19/2024 11:01 AM EDT Type 2 diabetes mellitus with other specified complication, with long-term current use of insulin (HCC) POCT GLYCATED HEMOGLOBIN, TOTAL Routine 09/17/2024 9:50 AM EDT Type 2 diabetes mellitus with other specified complication, with long-term current use of insulin (HCC) DIABETIC RETINOPATHY SCREENING - OU - BOTH EYES Routine 12/16/2022 COLONOSCOPY Routine 07/29/2014 12:00 PM EDT from Last 3 Months or Most Recently Relevant to Health Maintenance Results * (ABNORMAL) Microalbumin / creatinine urine ratio (11/19/2024 11:18 AM EDT) CREATININE, RANDOM URINE 60 20 - 320 mg/dL [facility] ALBUMIN, URINE 11.6 See Note: mg/dL [facility] Comment: Reference Range: Reference Range Not established ALBUMIN/CREATININE RATIO, RANDOM URINE 193(H) <30 mg/g creat [facility] Comment: The ADA defines abnormalities in albumin excretion as follows: Albuminuria Category Result (mg/g creatinine) Normal to Mildly increased <30 Moderately increased 30-299 Severely increased > OR = 300 The ADA recommends that at least two of three specimens collected within a 3-6 month period be abnormal before considering a patient to be within a diagnostic category. Urine Urine specimen obtained by clean catch procedure / Unknown 11/19/2024 11:18 AM EDT 11/19/2024 11:19 AM EDT Narrative Resulting Agency Comment Performing Organization Information Site ID: QPT Name: [facility] Address: [address] [place] [address], [address] [place] [phone] Director: Luigi Grace MD Leena MAGALLAN[facility] LAB URINE ORDERABLES Final Res ult [facility] * (ABNORMAL) POCT Glycated hemoglobin, total (11/19/2024 11:01 AM EDT) Only the most recent of2 resultswithin the time period is included. Hemoglobin A1C 11 Blood 11/19/2024 11:0 1 AM EDT us Leena MAGALLANES POINT OF CARE TEST ENTER/EDIT ORDERABLES Final Result * Diabetic Retinopathy Screening - OU - Both Eyes (12/16/2022) RESULTS ndr Anatomical Region Laterality Modality Head Other 12/16/2022 us Kojo Medina MD OPHTH PHOTOGRAPHY Final Result * Colonoscopy (07/29/2014 12:00 PM EDT) Anatomical Region Laterality Modality Endoscopy 07/29/2014 12:0 0 PM EDT Narrative 07/29/2014 12:00 PM EDT PERFORMED AT [facility] LOCATION:[id number] diverticulosis Procedure Note CONVERSION, GENERIC - 08/19/2022 PERFORMED AT [facility] LOCATION:[id number] diverticulosis us Kojo Medina MD ENDOSCOPY PROCEDURE ORDERABLES Final Result from Last 3 Months or Most Recently Relevant to Health Maintenance Insurance [employer] MEDICARE ADVANTAGE Care Teams Energy Derivatives Trader Relationship Specialty Start Date End Date Kojo Medina MD [address] [facility] [address] [place] [address] PCP - [employer] 04/04/20 Kojo Medina MD [address] [facility] [address] [place] [address] PCP - General Internal Medicine 08/18/22
--- OUTSIDE RECORDS SUMMARY | 2024-12-05 14:06 | XMS_ITS | Encounter Summary ---
Author Organization [facility] Address [address] [place] [address] Care Team Providers Care Work From Home Name Role Phone Kojo Medina MD Unavailable [phone] Kojo Medina MD Primary Care Provider [phone] Encounter Details Date Type Department Care Team (Late st Contact Info) Description 08/03/[address] [facility] [address] [facility] [address] [place] [address] Kojo Medina MD [address] [facility] [address] [place] [address] Social History Tobacco Use Types Packs/Day Years [...] How often do you attend chur or confucianism services? Never 12/14/2023 Do you belong to [...] Recorded Patient Health Questionnaire-2 Score 0 08/02/2024 [facility] of Occupat ional Health - Occupational Stress [...] place to sleep or slept in a long-term (including now)? No 10/14/2022 Housing Stability Vital Sign Answer Lenin e Recorded In the last 12 months, was t here a time when you were not able to pay the mortgage or rent on time? No 12/14/2023 In the past 12 months, how m any times have you moved where you were living? 0 12/14/2023 At any time in the past 12 m [facility], were you homeless or living in a long-term (including now)? No 12/14/2023 Sex and Gender [...] Office Visit [facility] [address] [place] [address] Thanh Bates PA [address] [place] [address] 12/20/2024 9:30 AM EDT Office Visit [facility] [place] [address] [place] [address] [place] [address] Leena Jordan PA [address] [place] [address] [place] [address] 07/17/2025 11:00 AM EDT Office Visit [facility] [address] [place] [address] [place] [address] Rachel Vasquez PA [address] [place] [address] [place] [address] documented as of this encounter Visit Diagnoses Not on filedocumented in this encounter Care Teams Work From Home Relationship Specialty Start Date End Date Kojo Medina MD [address] [facility] [address] [place] [address] PCP - [employer] 04/04/20 Kojo Medina MD [address] [facility] [address] [place] [address] PCP - General Internal Medicine 08/18/22 documented as of this encounter
--- NOTE | 2024-12-05 14:42 | P.CN_ITS ---
Consult Note: HPI Data of Consult Patient: known to practice within the last 3 years Requesting Physician: Joanne Guevara NP Primary Care Provider: SAHIL TOPETE Consult Narrative Reason for consult: right sided low back pain Narrative: Bradly Wu a pleasant 74 year old male with longstanding low back pain >5 years presents for evaluation of worsening right low back and hip pain. notes over the last few weeks increased stiffness and aching to right low back without injury/fall. pain today 2/10 increasing to 5/10, finding benefit to prn ibuprofen and lidocaine patches. pain increasing with sitting, standing, walking, weather changes, and activity. cc:: CC: Joanne Guevara NP Review of Systems ROS Musculoskeletal Reports: back pain and joint pain; Denies: extremity pain [facility]SH [facility], 1928–1983 Medical History (Updated 12/05/24 @ 14:44 by Joanne Guevara NP) Inguinal hernia ?K40.90 - Unilateral inguinal hernia, without obstruction or gangrene, not specified as recurrent (ICD-10) Hearing deficit ?H91.90 - Unspecified hearing loss, unspecified ear (ICD-10) Back pain ?M54.9 - Dorsalgia, unspecified (ICD-10) Neck pain ?M54.2 - Cervicalgia (ICD-10) Osteoarthritis ?M19.90 - Unspecified osteoarthritis, unspecified site (ICD-10) Numbness and tingling ?R20.0 - Anesthesia of skin (ICD-10) ?R20.2 - Paresthesia of skin (ICD-10) Diabetes ?E11.9 - Type 2 diabetes mellitus without complications (ICD-10) Enlarged prostate ?N40.0 - Benign prostatic hyperplasia without lower urinary tract symptoms (ICD-10) Smoker ?F17.200 - Nicotine dependence, unspecified, uncomplicated (ICD-10) Sleep apnea ?G47.30 - Sleep apnea, unspecified (ICD-10) Hypertension ?I10 - Essential (primary) hypertension (ICD-10) Surgical History S/P shoulder surgery ?Z98.890 - Other specified postprocedural states (ICD-10) S/P Achilles tendon repair ?Z98.890 - Other specified postprocedural states (ICD-10) Hx of appendectomy ?Z90.49 - Acquired absence of other specified parts of digestive tract (ICD- 10) H/O lumbosacral spine surgery ?Z98.890 - Other specified postprocedural states (ICD-10) History of total knee arthroplasty ?Z96.659 - Presence of unspecified artificial knee joint (ICD-10) H/O total hip arthroplasty ?Z96.649 - Presence of unspecified artificial hip joint (ICD-10) Meds Home Medications and Allergies Home Medications ?Medication ?Instructions ?Recorded ?Confirmed ?Type VICTOZA PEN DAILY 09/09/22 History amlodipine 5 mg tablet 5 mg PO DAILY 09/09/2209/28 History baclofen 10 mg tablet 10 mg PO BID 09/09/22 History carvedilol 25 mg tablet 25 mg PO BID 09/09/22 History ibuprofen 800 mg tablet 800 mg PO TID 09/09/2209/28 History insulin human U-100 NPH-regulr 60 unit subcut DAILY 09/28/22 History 70-30 mix 100 unit/mL subcutaneous susp (Novolin 70/30 U-100 Insulin) multivitamin 1 tab PO DAILY 09/09/22/10/24 History spironolactone 25 mg tablet 25 mg PO DAILY 09/09/22 History diazepam 5 mg tablet (Valium) 5 mg PO DAILY 09/28/22 0 09/28/22 History Allergies Allergy/AdvReac Type Severity Reaction Status Date / Time No Known Drug Allergies Allergy Verified 09/28/22 08:33 Exam Constitutional Documenting provider has reviewed patient's vital signs: yes Common normals: no apparent distress, oriented x3, healthy appearing, alert and well nourished General appearance: cooperative [facility] Common normals: normocephalic, hearing grossly normal bilaterally and moist oral mucous membranes Head and scalp: normocephalic Eye Common normals: PERRL Pupil: PERRL Neck & C-Spine Common normals: full ROM General: normal visual inspection Chest Common normals: inspection of chest normal Respiratory Common normals: normal respiratory effort, no retractions and no use of accessory muscles Back & Pelvis Lumbar spine/lower back: ROM limited, pain with ROM, lumbar spinal tenderness, paraspinal muscle tenderness, paraspinal muscle spasm and straight leg raise negative bilaterally Sacroiliac joints: SI joint(s) abnormal Other: right sij positive sandra(patricks), gaenslens, thigh thrust, compression test positive facet loading right > left Neuro Common normals: oriented x3 Sensorium/orientation: alert Psych Common normals: mental status grossly normal, thought process normal, cooperative, affect normal, speech normal and activity/motor behavior normal Speech: normal speech Thought process: normal thought process Results Additional Findings Additional findings: If on a controlled substance or opioids, I have checked an [place]AR[place] report on this patient and there are no aberrancies noted in the prescribing history.??If on a controlled substance or opioid a drug screen was completed and reviewed within the last year, and if there has not been a drug screen completed we ordered one today to monitor higher risk, state monitored pain medication use. As part of providing excellent, safe, comprehensive care, the following was completed at our patient's visit: 1. A medication reconciliation and review to ensure accurate knowledge of current/active medications, including asking our patients to inform us about any [id number] medications or herbal remedies/nutritional supplements/alternative remedies. 2. A review to specifically ensure our patients have had annual screening for screening for depression, screening for tobacco use, and screening for unhealthy alcohol use. For concerning screenings had a discussion with the patient, provided patient education, and recommended follow-up with primary care provider when appropriate. If patient noted with a risk of falling, they received education on strength, gait, and balance training to prevent future risk of falling. Portions of this note may have been carried over from the previous visit and updated as appropriate. Please note this office utilizes paper charting in addition to the electronic medical record. A list of current medications, vitals, and PMH is available there as the clinical staff outside of myself do not have access to [facility] charting during the clinic day operations. As part of providing quality comprehensive care the current medications, vitals, and PMH were reviewed in the paper chart. Assessment and Plan Assessment and Plan (1) Lumbar spondylosis: (2) Sacroiliitis: (3) Myalgia, other site: (4) Uncontrolled diabetes mellitus: Assessment and Plan: recent a1c >10, avoid steroids Plan update lumbar xray with flexion to assess low back and SIJ pain dc flexeril, start baclofen 5-10mg BID PRN pain/spasms continue HEP as tolerated f/u with PCP regarding asymptomatic htn f/u 2 weeks to evaluate pain
--- OUTSIDE RECORDS SUMMARY | 2024-12-05 18:38 | XMS_ITS | CCD ---
Author Organization [facility] Care Team Providers Care Stamping Press Operator Name Role Phone KOJO MEDINA Primary Care Physician Update Needed Unavailable Unavailable Unavailable Unavailable EUGENIA Medina Primary Care Provider [phone] LETICIA Husain Emergency Provider DO Yves Garcia Admit Provider DO Yves Garcia Attending Provider [phone] MD Jakub Andrews Attending Provider MD Colin Lion Other Provider [phone] Jakub Andrews Attending Unavailable Colin Lion Consulting Unavail able Kojo Medina Primary Care [...] LAKSHMIPATHY ., NARENDRANATH Admitting Anabella vailable HALKER ., FRED Consulting Unavailable LAKSHMIPATHY ., NATALIE Consulting Anabella [...] Consulting Unavailable ZIEBER, JOYA R Consulting Unavailable ADAM, DR BAXTER Primary Care Unavailable LAKSHMIPATHY ., NATALIE Attending Anabella vailable LAKSHMIPATHY ., NATALIE Admitting Anabella vailable LAKSHMIPATHY ., NATALIE Consulting Anabella vailable WEST, DR TAMMY Martinez Consulting Unavailable ADAM, DR BAXTER Primary Care Unavailable LAKSHMIPATHY ., NATALIE Attending Anabella vailable LAKSHMIPATHY ., NATALIE Admitting Anabella vailable LAKSHMIPATHY ., NATALIE Consulting Anabella vailable ADAM, DR BAXTER Consulting Unavailable ADAM, DR BAXTER Primary Care Unavailable ADAM, DR BAXTER Attending Unavailable ADAM, DR BAXTER Admitting Unavailable MEDINA, DR BAXTER [...] Kojo Dolan Primary Care Anabella vailable Colin Lion Attending Unavailable Adam BELLO, Dr. Kojo Dolan Primary Care Anabella vailable Colin Lion Attending Unavailable Colin Lion Referring Unavailable Adam BELLO, Dr. Kojo Dolan Primary Care Anabella vailable Colin Lion Attending Unavailable Colin Lion Referring Unavailable Kojo Medina MD Primary Care Provider SERA OSWALD Attending Unavail able KOJO MEDINA Referring Unavailable KOJO MEDINA Primary Care Unavailable SERA OSWALD Admitting Unavail able SERA OSWALD Attending Unavail able KOJO MEDINA Primary Care Unavailable Kojo Medina MD Unavailable Kojo Medina MD Primary Care Provider RO PENDLETON Attending Unavailable COLIN LION Referring Unavailable KOJO MEDINA Primary Care Unavailable RO PENDLETON Attending Unavailable RO PENDLETON Referring Unavailable KOJO MEDINA Primary Care Unavailable Rajeev IBRAHIM Attending Unavailable Rajeev IBRAHIM Attending Unavailable PANDA MCGOWAN Attending Unavailable KOJO MEDINA Attending Unavailable KOJO MEDINA Attending Unavailable LEENA ARMENTA Attending Unavailable KOJO MEDINA Attending Unavailable LYUDMILA DUNCAN Attending Unavailable LYUDMILA DUNCAN Attending Unavailable KOJO MEDINA Attending Unavailable KOJO MEDINA Attending Unavailable Allergies Allergy Classification Reported Allergen(s) Allergy Type Date of Onset Reaction(s) Facility (20 sources) metFORMIN; Translations: [METFORMIN HCL] Drug Allergy 3 Diarrhea [facility] Work Phone: (6 sources) Animal Dander; Translations: [ANIMAL DANDER] Propensity to adverse reactions 3 Shortness of breath, Itching, Rash [facility] (20 sources) Tetanus Toxoid, Adsorbed Propensity to adverse reactions 4 Other [facility] Healthcare (2 sources) atorvastatin; Translations: [ATORVASTATIN] Drug Allergy 5 Myalgia [facility] (1 source) Horses; Translations: [Horses] Propensity to adverse reactions (disorder) [facility] Repository Medications Current Medications Medication Drug Class(es) Dates Sig (Normalized) Sig (Original) amLODIPine 10 mg oral tablet (20 sources) Dihydropyridine Calcium Channel Ofelia Start: 01-13-2024 End: 01-12-2025 take 1 tablet by mouth once daily amLODIPine (Norvasc) 10 MG tablet Take 10 mg by mouth Daily 01/13/2024 Active Start: 02-16-2023 End: 01-24-2024 take 1 tablet by mouth once daily amLODIPine (Norvasc) 5 MG tablet Indications: Benign essential hypertension (CMS/HCC) TAKE 1 TABLET BY MOUTH ONCE DAILY (TAKE SAME TIME EACH DAY) 100 tablet 3 02/16/2023 01/24/2024 Discontinued (Dose adjustment) Start: 03-21-2022 take 5 mg by mouth once daily Amlodipine Active 5 MG PO Daily March 21, 2022 12:00am aspirin 81 mg oral tablet (12 sources) Platelet Aggregation Inhibitor, Nonsteroidal Anti-inflammatory Drug Start: 06-13-2019 End: 01-13-2024 take 1 mg by mouth once daily aspirin 81 mg oral tablet mg tab(s), Oral, Daily, Refills(s) 0 Start Date: 06/13/19 Status: Ordered Repeat number: 1 Aspirin EC 81 MG TBEC TAKE 1 TABLET DAILY. Quantity: 0 Refills: 0 Ordered: 08-Sep-2022 DO Active Baby Aspirin Act ghanshyam atorvastatin 40 mg oral tablet (20 sources) HMG-CoA Reductase Inhibitor Start: 03-21-2022 End: 10-12-2024 take 1 tablet by mouth once daily at bedtime atorvastatin (Lipitor) 40 MG tablet Indications: Benign essential hypertension (CMS/HCC) TAKE 1 TABLET BY MOUTH EVERY DAY AT BEDTIME 100 tablet 3 11/11/2022 08/02/2024 Discontinued (Side effects) Start: 06-13-2019 atorvastatin O ral, Daily, Refills(s) 0 Start Date: 06/13/19 Status: Ordered Repeat number: 1 Start: 06-13-2019 atorvastatin O ral, Daily, Refills(s) 0 Start Date: 06/13/19 Status: Ordered azithromycin 250 mg oral tablet (5 sources) Macrolide Antimicrobial Start: 01-24-2024 End: 01-29-2024 take 2 tablets by mouth once daily, then take 1 tablet by mouth once daily azithromycin (Zithromax) 250 MG tablet Indications: Acute non-recurrent pansinusitis Take 2 tablets (500 mg) by mouth Daily for 1 day, THEN 1 tablet (250 mg) Daily for 4 days. 6 tablet 01/24/2024 01/29/2024 Active Start: 12-21-2023 End: 12-26-2023 take 2 tablets by mouth once daily, then take 1 tablet by mouth once daily azithromycin (Zithromax) 250 MG tablet Indications: Upper respiratory tract infection, unspecified type Take 2 tablets (500 mg) by mouth Daily for 1 day, THEN 1 tablet (250 mg) Daily for 4 days. 6 tablet 12/21/2023 12/26/2023 Active baclofen 10 mg oral tablet (2 sources) gamma-Aminobutyric Acid-ergic Agonist take 1 tablet by mouth every twelve hours Baclofen 10 MG 1 tablet as needed Orally Twice a day Active Blood Glucose Monitoring Suppl (OneTouch Verio Flex System) w/Device kit (20 sources) Start: 07-02-19 End: 09-18-19 Blood Glucose Monitoring Suppl (OneTouch Verio Flex System) w/Device kit 07/01/2022 09/17/2024 Discontinued (Other) Start: 07-01-2022 Blood Glucose Monitoring Suppl (OneTouch Verio Flex System) w/Device kit 07/01/2022 Active Start: 07-01-2022 Blood Glucose Monitoring Suppl (OneTouch Verio Flex System) w/Device kit USE 1 TO CHECK GLUCOSE ONCE DAILY 07/01/2022 Active carvedilol 3.125 mg oral tablet (20 sources) alpha-Adrenergic Ofelia, beta-Adrenergic Ofelia Start: 10-12-2024 End: 10-12-2025 take 1 tablet by mouth in the morning carvedilol (Coreg) 3.125 MG tablet Take 3.125 mg by mouth in the morning and 3.125 mg in the evening. Take with meals. 10/12/2024 11/19/2024 Discontinued Start: 01-13-2024 End: 01-12-2025 take 1 tablet by mouth in the morning carvedilol (Coreg) 6.25 MG tablet Indications: Resistant hypertension Take 1 tablet (6.25 mg) by mouth in the morning and 1 tablet (6.25 mg) in the evening. Take with meals. 180 tablet 3 05/07/2024 11/19/2024 Discontinued (Dose adjustment) Start: 10-10-2023 End: 10-09-2024 take 2 tablets by mouth twice daily carvedilol (Coreg) 6.25 MG tablet TAKE 2 TABLETS BY MOUTH TWICE DAILY (MORNING AND LATER AFTERNOON). 01/05/2024 Active Start: 03-21-2022 End: 02-01-2024 take 12.5 mg by mouth twice daily Carvedilol Active 12.5 MG PO Twice daily March 21, 2022 12:00am Start: 06-13-2019 carvedilol Ora l, Refills(s) 0 Start Date: 06/13/19 Status: Ordered Repeat number: 1 Start: 06-13-2019 carvedilol Ora l, Refills(s) 0 Start Date: 06/13/19 Status: Ordered Start: 02-08-2017 End: 10-10-2023 take 1 tablet by mouth twice daily carvedilol (Coreg) 25 mg tablet Take 1 tablet (25 mg) by mouth 2 times daily (morning and late afternoon). 02/08/2017 10/10/2023 Discontinued (Reorder) cholecalciferol 0.025 mg oral capsule (4 sources) Vitamin D take 1 capsule by mouth once daily cholecalciferol (Vitamin D3) 25 MCG (1000 UT) capsule Take 1 capsule (25 mcg) by mouth once daily. Active Continuous Glucose Import Dispatcher (FreeStyle Radha 3 [place]) device (8 sources) Start: 08-28-2024 Continuous Glucose Import Dispatcher (FreeStyle Radha 3 [place]) device Indications: Type 2 diabetes mellitus with other specified complication, with long-term current use of insulin (HCC) USE DIRECTED 1 each 08/28/2024 Active Start: 08-02-2024 Continuous Glu cose Import Dispatcher (FreeStyle Radha 3 [place]) device Indications: Type 2 diabetes mellitus with other specified complication, with long-term current use of insulin 1 Device continuously 1 each 08/02/2024 Active Continuous Glucose Sensor (FreeStyle Radha 3 Sensor) misc (8 sources) Start: 08-02-2024 apply 1 dose transdermal route once Continuous Glucose Sensor (FreeStyle Radha 3 Sensor) [facility] [place] Indications: Type 2 diabetes mellitus with other specified complication, with long-term current use of insulin (HCC) Apply 1 patch topically every 14 (fourteen) days 2 each 08/02/2024 Active Start: 08-02-2024 apply 1 dose transde rmal route once Continuous Glucose Sensor (FreeStyle Radha 3 Sensor) [facility] [place] Indications: Type 2 diabetes mellitus with other specified complication, with long-term current use of insulin Apply 1 patch topically every 14 (fourteen) days 2 each 08/02/2024 Active cyclobenzaprine hydrochloride 10 mg oral tablet (20 sources) Muscle Relaxant Start: 01-20-2023 End: 09-17-2024 take 1 tablet by mouth every eight hours for muscle spasms cyclobenzaprine (Flexeril) 10 MG tablet Indications: Type 2 diabetes mellitus with other specified complication, with long-term current use of insulin ([facility]) Take 1 tablet (10 mg) by mouth every 8 (eight) hours if needed for muscle spasms 60 tablet 2 09/17/2024 Active dapagliflozin 10 mg oral tablet (2 sources) Sodium-Glucose Cotransporter 2 Inhibitor Start: 11-19-2024 take 1 tablet by mouth once daily Farxiga 10 MG Indications: Type 2 diabetes mellitus with other specified complication, with long-term current use of insulin ([facility]) Take 1 tablet (10 mg) by mouth Daily 30 tablet 5 11/19/2024 Active Start: 11-19-2024 take 1 tablet by yenni th once daily Farxiga 10 MG Indications: Type 2 diabetes mellitus with other specified complication, with long-term current use of insulin ([facility]) Take 1 tablet (10 mg) by mouth Daily 30 tablet 5 11/19/2024 Active doxycycline monohydrate 100 mg oral capsule (2 sources) Tetracycline-class Drug Start: 07-28-2020 take 1 capsule by mouth every twelve hours 0.85 ml exenatide 2.35 mg/ml auto-injector (15 sources) GLP-1 Receptor Agonist Start: 11-14-2023 End: 10-12-2024 Bydureon BCise 2 mg/0.85 mL auto-injector Inject 1 Syringe under the skin every 7 days. 11/14/2023 10/12/2024 Discontinued (Therapy completed) Start: 10-19-2023 End: 02-17-2024 Exenatide ER (Bydureon) 2 MG pen-injector Indications: Type 2 diabetes mellitus with other specified complication, with long-term current use of insulin ([facility]) Inject 2 mg under the skin every 7 (seven) days Dispense 8mg 8 each 10/19/2023 02/17/2024 Discontinued (Ineffective) fluconazole 100 mg oral tablet (2 sources) Azole Antifungal Start: 08-02-2024 End: 08-12-2024 take 1 tablet by mouth once daily fluconazole (Diflucan) 100 MG tablet Indications: Tinea inguinalis Take 1 tablet (100 mg) by mouth Daily for 10 days 10 tablet 08/02/2024 08/12/2024 Active furosemide 20 mg oral tablet (16 sources) Loop Diuretic Start: 01-25-2024 End: 01-24-2025 take 1 tablet by mouth once daily furosemide (Lasix) 20 MG tablet Indications: Elevated brain natriuretic peptide (BNP) level Take 1 tablet (20 mg) by mouth Daily 30 tablet 11 01/25/2024 08/02/2024 Discontinued hydroCHLOROthiazide 25 mg / triamterene 37.5 mg oral tablet (20 sources) Potassium-sparing Diuretic, Thiazide Diuretic Start: 03-21-2022 take 1 tablet by mouth once daily in the morning triamterene-hydro chlorothiazide (Maxzide-25) 37.5-25 MG tablet Indications: Benign essential hypertension TAKE 1 TABLET BY MOUTH ONCE DAILY IN THE MORNING 100 tablet 3 09/13/2024 Active ibuprofen 200 mg oral tablet (4 sources) Nonsteroidal Anti-inflammatory Drug take 2 tablets [...] Twice daily March 21, 2022 12:00am NovoLog (4 sources) Insulin Analog Start: 06-13-2019 NovoLog SubCut aneous, TIDAC, Refills(s) 0 Start Date: 06/13/19 Status: Ordered Repeat number: 1 Start: 06-13-2019 NovoLog SubCut aneous, TIDAC, Refills(s) 0 Start Date: 06/13/19 Status: Ordered insulin isophane, human 70 unt/ml / insulin, regular, human 30 unt/ml injectable suspension (20 sources) Insulin Start: 08-02-2024 inject 30 [IU] by subcutaneous injection in the morning insulin NPH-insulin regular (NovoLIN 70/30) (70-30) 100 UNIT/ML injection Indications: Type 2 diabetes mellitus with other specified complication, with long-term current use of insulin (HCC) Inject 30 Units under the skin in the morning and 30 Units in the evening. Inject before meals. 08/02/2024 Active insulin NPH and regular human (NovoLIN 70/30 U-100 Insulin) 100 unit/mL (70-30) injection Inject 65 Units under the skin 2 times a day before meals. Active End: 08-02-2024 insulin NPH-insulin regular (NovoLIN 70/30) (70-30) 100 UNIT/ML injection 08/02/2024 Discontinued (Reorder) insulin NPH-insu nabeel regular (NovoLIN 70/30) (70-30) 100 UNIT/ML injection 65 units Subcutaneous Before breakfast and supper Active NovoLIN 70/30 (7 0-30) 100 UNIT/ML as directed Subcutaneous Active 3 ml liraglutide 6 mg/ml pen injector (12 sources) GLP-1 Receptor Agonist Start: 06-13-2019 End: 10-10-2023 Liraglutide (Victoza 2-Ujles) 0.6 mg/0.1 mL (18 mg/3 mL) pen injector Active 12 MG SUBCUT Daily March 21, 2022 12:00am Start: 06-13-2019 inject 1 mg by subcu taneous injection once daily Victoza mg, SubCutaneous, Daily, Refills(s) 0 Start Date: 06/13/19 Status: Ordered Repeat number: 1 Start: 06-13-2019 inject 1 mg by subcu taneous injection once daily Victoza mg, SubCutaneous, Daily, Refills(s) 0 Start Date: 06/13/19 Status: Ordered inject 1.8 mg by sub cutaneous injection once daily Victoza 18 MG/3ML Subcutaneous Solution INJECT 1.8 MG SUBCUTANEOUSLY EVERY DAY Quantity: 0 Refills: 0 Ordered: 17-Mar-2022 DO Active lisinopril 40 mg oral tablet (9 sources) Angiotensin Converting Enzyme Inhibitor Start: 03-21-2022 take 40 mg by mouth once daily Lisinopril Active 40 MG PO Daily March 21, 2022 12:00am Start: 06-13-2019 lisinopril Ora l, Daily, Refills(s) 0 Start Date: 06/13/19 Status: Ordered Repeat number: 1 Start: 06-13-2019 lisinopril Ora l, Daily, Refills(s) 0 Start Date: 06/13/19 Status: Ordered metFORMIN hydrochloride 500 mg oral tablet (20 sources) Biguanide Start: 02-17-2024 End: 02-16-2025 take 1 tablet by mouth in the morning metFORMIN (Glucophage) 500 MG tablet Indications: Type 2 diabetes mellitus with other specified complication, with long-term current use of insulin (HCC) Take 1 tablet (500 mg) by mouth in the morning and 1 tablet (500 mg) in the evening. Take with meals. 60 tablet 02/17/2024 02/16/2025 Active Start: 03-21-2022 take 1000 mg by mout h twice daily Metformin Active 1000 MG PO Twice daily March 21, 2022 12:00am Start: 06-13-2019 metformin Oral , Refills(s) 0 Start Date: 06/13/19 Status: Ordered Repeat number: 1 Start: 06-13-2019 metformin Oral , Refills(s) 0 Start Date: 06/13/19 Status: Ordered take 1 tablet by yenni th every twenty-four hours metFORMIN HCl 1000 MG 1 tablet with a meal Orally Once a day Active methylPREDNISolone (3 sources) Corticosteroid Start: 01-24-2024 End: 01-31-2024 methylPREDNISolone (Medrol Dospak) 4 MG tablets Indications: Acute non-recurrent pansinusitis Follow schedule on package instructions 21 tablet 01/24/2024 01/31/2024 Active 24 hr mirabegron 50 mg extended release oral tablet (4 sources) beta3-Adrenergic Agonist Start: 11-14-2024 take 1 tablet by mouth once daily, then take 1 tablet by mouth every twenty-fou r hours mirabegron ER (Myrbetriq) 50 MG 24 hr tablet Take 50 mg by mouth Daily 11/14/2024 Active Multiple Vitamins Tab (4 sources) Start: 06-13-2019 take 1 tablet by mouth once daily Multiple Vitamins Tab Oral, Daily, Refill(s) 0 Start Date: 06/13/19 Status: Ordered Repeat number: 1 Start: 06-13-2019 take 1 tablet by yenni th once daily Multiple Vitamins Tab Oral, Daily, Refill(s) 0 Start Date: 06/13/19 Status: Ordered multivitamin tablet (4 sources) take 1 tablet by yenni th once daily multivitamin tablet Take 1 tablet by mouth once daily. Active take 1 tablet by mouth once renay y multivitamin tablet Take 1 tablet by mouth once daily. 0 Active mupirocin 0.02 mg/mg topical ointment (2 sources) RNA Synthetase Inhibitor Antibacterial Start: 07-28-2020 oxybutynin chloride 5 mg oral tablet (8 sources) Cholinergic Muscarinic Antagonist Start: 08-02-2024 End: 01-29-2025 take 1 tablet by mouth in the morning oxybutynin (Ditropan) 5 MG tablet Indications: OAB (overactive bladder) Take 1 tablet (5 mg) by mouth in the morning and 1 tablet (5 mg) before bedtime. 60 tablet 5 08/02/2024 11/19/2024 Discontinued Ozempic 0.25 mg or 0.5 mg (2 mg/3 mL) pen injector (1 source) inject 0.5 mg by subcutaneous injection every week Ozempic 0.25 mg or 0.5 mg (2 mg/3 mL) pen injector Inject 0.5 mg under the skin 1 (one) time per week. Active Ozempic 1 mg/dose (4 mg/3 mL) pen injector (3 sources) Start: 03-10-2023 End: 01-13-2024 inject 1 [...] 1 (one) time per week. Tuesday03/10/2023 Active Start: 03-10-2023 inject 1 mg by subcu taneous injection every week Ozempic 1 mg/dose (4 mg/3 mL) pen injector Inject 1 mg under the skin 1 (one) time per week. Tuesday03/10/2023 Active Ozempic, 0.25 or 0.5 MG/DOSE , 2 MG/3ML solution pen-injector (5 sources) Start: 08-27-2024 End: 11-19-2024 Ozempic, 0.25 or 0.5 MG/DOSE , 2 MG/3ML solution pen-injector Inject 0.5 mg under the skin every 7 (seven) days 08/27/2024 11/19/2024 Discontinued (Dose adjustment) Start: 08-27-2024 Ozempic, 0.25 or 0.5 MG/DOSE, 2 MG/3ML solution pen-injector Inject 0.5 mg under the skin every 7 (seven) days 08/27/2024 Active pravastatin sodium 20 mg oral tablet (4 sources) HMG-CoA Reductase Inhibitor Start: 10-12-2024 End: 10-12-2025 take 1 tablet by mouth in the morning pravastatin (Pravachol) 20 MG tablet Take 20 mg by mouth in the morning. 10/12/2024 10/12/2025 Active 0.25 mg, 0.5 mg dose 1.5 ml semaglutide 1.34 mg/ml pen injector (11 sources) Start: 04-10-2024 End: 09-17-2024 inject 0.5 mg by subcutaneous injection every week semaglutide (Ozempic) 2 MG/1.5ML solution pen-injector Indications: Type 2 diabetes mellitus with other specified complication, unspecified whether mcc insulin use (HCC) Inject 0.5 mg under the skin 1 (one) time per week 1.5 mL 04/10/2024 09/17/2024 Discontinued (Duplicate order) inject 0.5 mg by sub cutaneous injection every week semaglutide (Ozempic) 2 MG/1.5ML solutio n pen-injector Inject 0.5 mg under the skin 1 (one) time per week Active semaglutide (Ozempic, 1 MG/DOSE,) 4 MG/3ML solution pen-injector (2 sources) Start: 11-19-2024 inject 1 mg by subcutaneous injection every week semaglutide (Ozempic, 1 MG/DOSE,) 4 MG/3ML solution pen-injector Indications: Type 2 diabetes mellitus with other specified complication, with long-term current use of insulin (HCC) Inject 1 mg under the skin 1 (one) time per week 3 mL 5 11/19/2024 Active sildenafil 50 mg oral tablet (20 sources) Phosphodiesterase 5 Inhibitor Start: 08-11-2023 take 1 tablet by mouth once daily as needed sildenafil (Viagra) 50 MG tablet Indications: Erectile dysfunction due to diseases classified elsewhere TAKE 1 TABLET BY MOUTH ONCE DAILY NEEDED 30 tablet 08/11/2023 Active spironolactone 25 mg oral tablet (20 sources) Aldosterone Antagonist Start: 11-14-2023 End: 10-12-2024 take 1 tablet by mouth once daily spironolactone (Aldactone) 25 MG tablet Take 25 mg by mouth Daily 12/10/2023 Active Start: 09-14-2023 take 1 tablet by yenni th once daily spironolactone (Aldactone) 25 mg tablet Indications: Benign essential hypertension Take 1 tablet by mouth once daily 90 tablet 09/14/2023 Active Start: 03-05-2023 take 1 tablet by yenni th once daily spironolactone (Aldactone) 25 mg tablet Take 1 tablet (25 mg) by mouth once daily. 0 03/05/2023 Active Start: 03-17-2022 take 1 tablet by yenni th once daily Spironolactone 25 MG Oral Tablet TAKE 1 TABLET DAILY. Quantity: 90 Refills: 3 Ordered: 08-Sep-2022 Colin Lion MD Start : 17-Mar-2022 Active traMADol hydrochloride [...] 1 capsule Orally Once a day Active Completed/Discontinued Medications Medication Drug Class(es) Dates Sig (Normalized) Sig (Original) 0.5 ml dulaglutide 1.5 mg/ml auto-injector (5 sources) GLP-1 Receptor Agonist Start: 02-17-2024 End: 03-22-2024 inject 0.75 mg by subcutaneous injection every week Dulaglutide (Trulicity) 0.75 MG/0.5ML solution auto-injector Indications: Type 2 diabetes mellitus with other specified complication, with long-term current use of insulin ([facility]) Inject 0.75 mg under the skin 1 (one) time per week 2 mL 11 02/17/2024 03/22/2024 Discontinued triamcinolone acetonide 1 mg/ml topical cream (5 sources) Corticosteroid Start: 05-26-2023 End: 02-17-2024 triamcinolone (Kenalog) 0.1 % cream 05/26/2023 02/17/2024 Discontinued (Therapy completed) zolpidem tartrate 5 mg oral tablet (12 sources) gamma-Aminobutyric Acid-ergic Agonist Start: 01-24-2024 End: 01-23-2025 zolpidem (Ambien) 5 MG tablet Indications: Insomnia, unspecified type Take 1 tablet (5 mg) by mouth as needed at bedtime for sleep 30 tablet 01/24/2024 03/22/2024 Discontinued Problems Active Problems Problem Classification Problem Date Documented Date Episodic/Chronic Administrative/social admission (4 sources) Patient encounter status; Translations: [Other specified counseling] 02-17-2024 Episodic Cardiac dysrhythmias (20 sources) AV junctional rhythm; Translations: [Other specified cardiac arrhythmias] Onset: 01-13-2024 01-13-2024 Chronic Diabetes mellitus with complications (20 sources) Diabetic mononeuropathy; Translations: [Type 2 diabetes mellitus with diabetic mononeuropathy] Onset: 09-01-2022 09-01-2022 Chronic Diabetes mellitus without complication (20 sources) Diabetes mellitus; Translations: [Diabetes mellitus without mention of complication, type II or unspecified type, not stated as uncontrolled] Onset: 03-21-2022 Resolved: 11-19-2024 06-13-2019 Chronic Disorders of lipid metabolism (20 sources) Hyperlipidemia; Translations: [Other and unspecified hyperlipidemia] Onset: 09-01-2022 01-13-2024 Chronic Diverticulosis and diverticulitis (20 sources) Diverticulosis of colon; Translations: [Diverticulosis of large intestine without perforation or abscess without bleeding] Onset: 03-24-2009 05-31-2023 Chronic Essential hypertension (20 sources) Hypertensive disorder; Translations: [Benign essential hypertension] Onset: 06-25-2008 Resolved: 11-19-2024 06-13-2019 Chronic Hyperplasia of prostate (20 sources) Benign prostatic hypertrophy with outflow obstruction; Translations: [Benign prostatic hyperplasia with lower urinary tract symptoms] Onset: 06-25-2008 Chronic Immunity disorders (4 sources) Secondary immune deficiency disorder; Translations: [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[facility])] 02-17-2024 Chronic Mycoses (2 sources) Tinea cruris; Translations: [Tinea cruris] 08-02-2024 Episodic Osteoarthritis (20 sources) Arthritis; Translations: [Osteoarthritis of left hip joint] Onset: 09-01-2022 06-13-2019 Chronic Other aftercare (1 source) terminal gauger supervisor (current) use of insulin; Translations: [HALF-WAY CURRENT USE OF INSULIN] Onset: 07-22-2022 Episodic Other and unspecified benign neoplasm (2 sources) Senile angioma; Translations: [Hemangioma of skin and subcutaneous tissue] 07-17-2024 Episodic Other and unspecified benign neoplasm (2 sources) Melanocytic nevus of trunk; Translations: [Melanocytic nevi of trunk] 07-17-2024 Episodic Other connective tissue disease (1 source) Disorder of ligament, vertebrae Episodic Other connective tissue disease (1 source) Other muscle spasm; Translations: [OTHER MUSCLE SPASM] Onset: 07-17-2022 Episodic Other diseases of bladder and urethra (6 sources) Overactive bladder; Translations: [Overactive bladder] Onset: 11-19-2024 08-02-2024 Chronic Other diseases of bladder and urethra (1 source) Detrusor overactivity; Translations: [Overactive bladder] Onset: 11-14-2024 Chronic Other liver diseases (20 sources) Steatosis of liver; Translations: [Fatty (change of) liver, not elsewhere classified] Onset: 09-01-2022 09-01-2022 Chronic Other lower respiratory disease (2 sources) Wheezing; Translations: [Wheezing] 01-24-2024 Episodic Other male genital disorders (20 sources) Secondary erectile dysfunction; Translations: [Erectile dysfunction due to diseases classified elsewhere] Onset: 09-01-2022 09-01-2022 Chronic Other nervous system disorders (1 source) Other chronic pain; Translations: [OTHER CHRONIC PAIN] Onset: 06-21-2022 Chronic Other nervous system disorders (7 sources) Carpal tunnel syndrome of right wrist; Translations: [Carpal tunnel syndrome, right upper limb] Onset: 03-21-2023 03-21-2023 Chronic Other nervous system disorders (2 sources) Carpal tunnel syndrome, right upper limb; Translations: [Carpal tunnel syndrome, right upper limb] Onset: 03-21-2023 Chronic Other nervous system disorders (20 sources) Carpal tunnel syndrome; Translations: [Carpal tunnel syndrome, unspecified upper limb] Onset: 09-01-2022 Resolved: 11-19-2024 09-01-2022 Chronic Other non-traumatic joint disorders (4 sources) Pain in left hip; Translations: [PAIN IN LEFT HIP] Onset: 07-08-2022 Episodic Other nutritional; endocrine; and metabolic disorders (14 sources) Body mass index 40+ - severely obese; Translations: [Morbid obesity] Onset: 01-13-2024 01-13-2024 Chronic Other nutritional; endocrine; and metabolic disorders (3 sources) Body mass index (BMI) 45.0-49.9, adult; Translations: [Body mass index (BMI) 45.0-49.9, adult (Multi)] Onset: 01-13-2024 Chronic Other nutritional; endocrine; and metabolic disorders (1 source) Obesity, unspecified; Translations: [OBESITY UNSPECIFIED] Onset: 05-08-2022 Chronic Other nutritional; endocrine; and metabolic disorders (20 sources) Morbid obesity; Translations: [Morbid (severe) obesity due to excess calories] Onset: 09-01-2022 09-01-2022 Chronic Other nutritional; endocrine; and metabolic disorders (2 sources) Obesity caused by energy imbalance; Translations: [Morbid (severe) obesity due to excess calories] 08-02-2024 Chronic Other screening for suspected conditions (not mental disorders or infectious disease) (10 sources) Other specified abnormal findings of blood chemistry; Translations: [Other nonspecific findings on examination of blood] Onset: 11-14-2024 01-25-2024 Episodic Other skin disorders (2 sources) Actinic keratosis; Translations: [Actinic keratosis] 07-17-2024 Episodic Other skin disorders (2 sources) Seborrheic keratosis; Translations: [Other seborrheic keratosis] 07-17-2024 Episodic Other skin disorders (2 sources) Lentigo simplex; Translations: [Other melanin hyperpigmentation] 07-17-2024 Episodic Other upper respiratory infections (4 sources) Acute pansinusitis; Translations: [Acute pansinusitis, unspecified] 01-24-2024 Episodic Residual codes; unclassified (3 sources) History of chest pain; Translations: [Personal history of other specified diseases] Episodic Residual codes; unclassified (3 sources) H/O: respiratory disease; Translations: [Personal history of other diseases of respiratory system] Episodic Residual codes; unclassified (1 source) Other specified postprocedural states Episodic Residual codes; unclassified (7 sources) Other specified health status; Translations: [Other drug allergy] Onset: 09-17-2024 09-17-2024 Episodic Spondylosis; intervertebral disc disorders; other back problems (20 sources) Degeneration of lumbar intervertebral disc; Translations: [Other intervertebral disc degeneration, lumbar region] Onset: 06-25-2008 Chronic Unclassified (3 sources) LOW BACK PAIN, UNSPECIFIED; Translations: [LOW BACK PAIN, UNSPECIFIED] Onset: 05-08-2022 Unclassified (3 sources) COUGH, UNSPECIFIED; Translations: [COUGH, UNSPECIFIED] Onset: 10-21-2021 Unclassified (1 source) Patient encounter status 11-14-2024 Past or Other Problems Problem Classification Problem Date Documented Date Episodic/Chronic Calculus of urinary tract (20 sources) Kidney stone; Translations: [Calculus of kidney] Onset: 09-01-2022 09-01-2022 Episodic Cardiac dysrhythmias (20 sources) Sinus bradycardia; Translations: [Bradycardia, unspecified] Onset: 01-13-2024 01-13-2024 Episodic Conditions associated with dizziness or vertigo (20 sources) Acute vestibular syndrome; Translations: [Unspecified disorder of vestibular function, unspecified ear] Onset: 09-01-2022 09-01-2022 Episodic Conduction disorders (20 sources) First degree atrioventricular block; Translations: [Atrioventricular block, first degree] Onset: 09-01-2022 Resolved: 11-19-2024 09-01-2022 Chronic Genitourinary symptoms and ill-defined conditions (20 sources) Microscopic hematuria; Translations: [Other microscopic hematuria] Onset: 02-01-2024 06-13-2019 Episodic Mood disorders (20 sources) Mild depression; Translations: [Mild depression] Onset: 09-01-2022 Resolved: 11-19-2024 09-01-2022 Chronic Nonspecific chest pain (20 sources) Atypical chest pain; Translations: [Other chest pain] Onset: 03-21-2022 03-21-2022 Episodic Other circulatory disease (20 sources) Pulse irregular; Translations: [Other specified symptoms and signs involving the circulatory and respiratory systems] Onset: 09-01-2022 09-01-2022 Episodic Other lower respiratory disease (20 sources) Dyspnea; Translations: [Shortness of breath] Onset: 01-03-2024 01-24-2024 Episodic Other nervous system disorders (20 sources) Ulnar nerve entrapment; Translations: [Lesion of ulnar nerve, unspecified upper limb] Onset: 09-01-2022 Resolved: 11-19-2024 09-01-2022 Chronic Residual codes; unclassified (20 sources) H/O: anticoagulant therapy; Translations: [Personal history of other drug therapy] Onset: 02-01-2024 06-13-2019 Episodic Residual codes; unclassified (20 sources) Insomnia; Translations: [Insomnia, unspecified] Onset: 09-01-2022 09-01-2022 Episodic Screening and history of mental health and substance abuse codes (20 sources) Ex-smoker; Translations: [Personal history of tobacco use] Onset: 01-13-2024 Episodic Comment on above: quit smoking 20+year s ago; Spondylosis; intervertebral disc disorders; other back problems (20 sources) Radiculopathy, lumbar region; Translations: [Spinal stenosis, lumbar region without neurogenic claudication] Onset: 07-02-2022 Episodic Unclassified (1 source) LOW BACK PAIN, UNSPECIFIED; Translations: [LOW BACK PAIN, UNSPECIFIED] Onset: 05-04-2022 Unclassified (1 source) COUGH, UNSPECIFIED; Translations: [COUGH, UNSPECIFIED] Onset: 10-19-2021 Unclassified (3 sources) Onset: 10-10-2023 Resolved: 10-12-2024 10-10-2023 Results Test Name Value Interpretation Reference Range Facility ALBUMIN, RANDOM URINE W/CREA Andreina 11-20-2024 ALBUMIN, URINE 11.6 mg/dL Normal See Note: [facility] Comment on above: Result Comment: Refe rendarby Range: Reference Range Not established Performed By: #### 6 517 #### [facility] [address], [address] [place] [address] Parts Delivery Driver: Luigi Grace MD ALBUMIN/CREATININE RATIO, RANDOM URINE 193 mg/g creat High <30 [facility] Comment on above: Result Comment: The ADA defines abnormalities in albumin excretion as follows: Albuminuria Category Result (mg/g creatinine) Normal to Mildly increased <30 Moderately increased 30-299 Severely increased > OR = 300 The ADA recommends that at least two of three specimens collected within a 3-6 month period be abnormal before considering a patient to be within a diagnostic category. Performed By: #### 6 517 #### [facility] [address], [address] [place] [address] Parts Delivery Driver: Luigi Grace MD Creatinine (U) [Mass/Vol] 60 mg/dL Normal 20-320 [facility] Comment on above: Performed By: #### 6 517 #### [facility] [address], [address] [place] [address] Parts Delivery Driver: Luigi Grace MD Laboratory - Hematology and Cell countson 11-19-2024 HbA1c (Bld) [Mass fraction] 11 % [facility] No Panel Informationon 11-19 Interpretation and review of laboratory results Abnormal [facility] Ambulatory Visit Summaryon 0 11-14-2024 Ambulatory Visit Summary Ambulatory Visit Summary TAMMY WU :1950 Visit Date:11/14/2024 Ambulatory Visit Instructions Your Diagnosis OAB (overactive bladder) Screening PSA (prostate specific antigen) Your Care Team Attending Physician - PATRICE SOTELO, Rajeev John Primary Care Physician - KOJO MEDINA MD This Is Your Medications List mirabegron (mirabegron 50 mg oral tablet, extended release) Contact prescribing physician if questions or concerns aspirin (aspirin 81 mg oral tablet) atorvastatin carvedilol insulin aspart (NovoLog) liraglutide (Victoza) lisinopril metformin multivitamin (Multiple Vitamins Tab) Procedures Performed Cystoscopy (10/07/2015), Cystoscopy (09/18/2012), Cystoscopy (08/07/2010), Transrectal biopsy of prostate using ultrasound (US) guidance (09/02/2002), History of hernia repair, Operative procedure on ocular lens, Total replacement of right hip joint. Discharge Vitals Heart Rate (Peripheral) 58 Respiratory Rate 18 Blood Pressure 136/86 Height 67 in Height 170 cm Weight 298.726 lb Weight 135.5 kg BMI 46.89 What to do next Scheduled Follow-Up Appointments Tuesday 11:45 AM EST With: Rajeev IBRAHIM MD Where: [facility] [address] [place] [address]- You Need to Schedule the Following Appointments Follow Up with PATRICE SOTELO, Rajeev John, URL When: Comments: 4 mos (new med) Where: [address] [place] [address] Medications What How Much When Instructions New mirabegron (mirabegron 50 mg oral tablet, extended release) 1 Tablets By Mouth Every day Refills: 11 Pickup at [facility] Unchanged aspirin (aspirin 81 mg oral tablet) By Mouth Every day Contact prescribing physician if questions or concerns Unchanged atorvastatin By Mouth Every day Contact prescribing physician if questions or concerns Unchanged carvedilol By Mouth Contact prescribing physician if questions or concerns Unchanged insulin aspart (NovoLog) Subcutaneous Before meals Contact prescribing physician if questions or concerns Unchanged liraglutide (Victoza) Subcutaneous Every day Contact prescribing physician if questions or concerns Unchanged lisinopril By Mouth Every day Contact prescribing physician if questions or concerns Unchanged metformin By Mouth Contact prescribing physician if questions or concerns Unchanged multivitamin (Multiple Vitamins Tab) By Mouth Every day Contact prescribing physician if questions or concerns Pharmacy Information [facility]: [address] [place], [place] [id number] [phone] Allergies Horses (Unknown) Problems Ongoing - Any problem that you are currently receiving treatment for. Arthritis BPH with urinary obstruction Diabetes HTN (hypertension) Hx of mcc use of blood thinners Microhematuria Morbid obesity with BMI of 45.0-49.9, adult OAB (overactive bladder) Screening PSA (prostate specific antigen) Patient Survey You may receive a survey via text or e-mail asking about your office visit. Please share your experience with us by completing your survey. We appreciate your feedback and thank you for choosing us for your care. Education Materials Overactive Bladder, Adult Overactive bladder is a condition in which a person has a sudden and frequent need to urinate. A person might also leak urine if he or she cannot get to the bathroom fast enough (urinary incontinence). Sometimes, symptoms can interfere with work or social activities. What are the causes? Overactive bladder is associated with poor nerve signals between your bladder and your brain. Your bladder may get the signal to empty before it is full. You may also have very sensitive muscles that make your bladder squeeze too soon. This condition may also be caused by other factors, such as: ??? Medical conditions: ? Urinary tract infection. ? Infection of nearby tissues. ? Prostate enlargement. ? Bladder stones, inflammation, or tumors. ? Diabetes. ? Muscle or nerve weakness, especially from these conditions: ? A spinal cord injury. ? Stroke. ? Multiple sclerosis. ? Parkinson's disease. ??? Other causes: ? Surgery on the uterus or urethra. ? Drinking too much caffeine or alcohol. ? Certain medicines, especially those that eliminate extra fluid in the body (diuretics). ? Constipation. What increases the risk? You may be at greater risk for overactive bladder if you: ??? Are an older adult. ??? Smoke. ??? Are going through menopause. ??? Have prostate problems. ??? Have a neurological disease, such as stroke, dementia, Parkinson's disease, or multiple sclerosis (MS). ??? Eat or drink alcohol, spicy food, caffeine, and other things that irritate the bladder. ??? Are overweight or obese. What are the signs o (more content not included)... Normal [facility] Urology Office/Clinic Noteon 11-14-2024 Urology Office/Clinic Note Urology Office/Clinic Note Chief Complaint New pt HPI Staff New Pt. Office visit. Pt is here today due to urinary leakage Pt was last seen on 07/10/21 Previous DX: BPH w/urinary obstruction, microhematuria Pt states he has some leakage before stream starts within the last 4-5 months Denies pain or burning, denies visible blood History of Present Illness Tests reviewed: reviewed UA, PSA I have reviewed the previous health record information and history for this patient from Dr. Ibrahim. I have reviewed and verified the staff HPI to be accurate for this encounter. Review of Systems PHQ Score Initial Depression Screen Score: 0 SCORE ROS - Provider Constitutional: denies weight loss, denies hot flashes. Eyes: denies eye problems. Gastrointestinal: denies nausea, denies vomiting. Cardiovascular: denies chest pain or angina. Integumentary: no dryness Musculoskeletal: denies musculoskeletal symptoms. ENMT: denies otolaryngeal symptoms. Respiratory: no shortness of breath. Heme/Lymph: denies easy bleeding tendency, denies easy bruising tendency. Psychiatric: no confusion, no anxiety. Genitourinary: See HPI. Physical Exam Vitals & Measurements HR: 58(Peripheral) RR: 18 BP: 136/86 HT: 170 cm HT: 67 in WT: 298.726 lb WT: 135.5 kg BMI: 46.89 General Appearance: alert, no distress, well nourished, well developed male. Assessment/Plan Tammy is a 74 yo male new pt here for urinary leakage. Last seen by PRW 07/10/21. 1. OAB (overactive bladder) (N32.81: Overactive bladder) UA neg. IPSS 6. No bladder/prostate meds. Denies trouble with stream. Urgency is very bothersome. Experiences leakage when he stands, on the way to the bathroom. Wears a pad out in public. Not overly bothersome, just inconvenient per pt, Discussed OAB meds including anticholinergics when tend to have worse SEs including dry eyes, dry mouth, constipation vs beta-3 agonists which have less possible SEs but can be expensive. Recommended trial of Myrbetriq as it has gone generic recently. -Start Mirabegron ER 50 mg qd. Rx sent to [facility]. Pt to call if cost prohibitive. -F/u in 4 mos 2. Screening PSA (prostate specific antigen) (Z12.5: Encounter for screening for malignant neoplasm of prostate) PSA 02/01/24 - 0.21 Level is low. No indication for further workup. -Cont monitoring PSA w/ PCP Follow-up With When Contact Information PATRICE SOTELO, Rajeev John, URL [address] [place] [address] [place] [address] Additional Instructions: 4 mos (new med) Patient Education Overactive Bladder, Adult I, Ai Medina, personally scribed for Dr. Ibrahim on 11/14/2024 09:09:06. . Documentation recorded by the scribe, Ai Medina, accurately reflects the services(s) I performed and decisions made by me. Authenticated by Dr. Ibrahim on 11/14/2024 09:10:21. 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 Medications aspirin 81 mg oral tablet, Oral, Daily atorvastatin, Oral, Daily carvedilol, Oral lisinopril, Oral, Daily metformin, Oral Multiple Vitamins Tab, Oral, Daily NovoLog, SubCutaneous, TIDAC Victoza, SubCutaneous, Daily Allergies Horses (Unknown) Social History Tobacco Former smoker, quit more than 30 days ago Tobacco Use:. Never Smokeless Tobacco Use:. Cigarettes, 11/14/2024 Family History Diabetes mellitus type 2: Mother. Heart disease: Father. Hypertension: Mother. Immunizations Vaccine Date Status influenza virus vaccine, inactivated 01/18/2023 Recorded influenza virus vaccine, inactivated 01/22/2022 Recorded zoster vaccine, inactivated 12/21/2021 Recorded influenza virus vaccine, inactivated 03/12/2021 Recorded SARS-CoV-2 (COVID-19) mRNA-1273 vaccine 02/09/2021 Recorded SARS-CoV-2 (COVID-19) Ad26 vaccine 02/2021 Recorded zoster vaccine, inactivated 12/02/2020 Recorded SARS-CoV-2 (COVID-19) mRNA-1273 vaccine 06/26/2020 Recorded SARS-CoV-2 (COVID-19) Ad26 vaccine 06/2020 Recorded SARS-CoV-2 (COVID-19) mRNA-1273 vaccine 05/29/2020 Recorded SARS-CoV-2 (COVID-19) Ad26 vaccine 05/2020 Recorded influenza virus vaccine, inactivated 01/03/2020 Recorded influenza virus vaccine, inactivated 02/19/2019 Recorded influenza virus vaccine, inactivated 01/02/2019 Recorded influenza virus vaccine, inactivated 01/25/2018 Recorded influenza virus vaccine, inactivated 03/29/2017 Recorded pneumococcal 13-edita (more content not included)... Normal [facility] Comment on above: Result Comment: Elec tronically Signed By: Rajeev IBRAHIM MD\.br\Date and Time Signed: 11/14/24 09:10 EDT\.br\Electronically Co-Signed By: Ai Medina\.br\Date and Time Co-Signed: 11/14/24 09:09 EDT ECG 12 Leadon 10-12-2024 Sinus bradycardia wi th heart rate 47 [facility] Work Phone: Laboratory - Hematology and Cell countson 09-17-2024 HbA1c (Bld) [Mass fraction] 10.4 % [facility] No Panel Informationon 09-17 [facility] Laboratory - Hematology and Cell countson 08-02-2024 HbA1c (Bld) [Mass fraction] 11.9 % [facility] No Panel Informationon 08-02 [facility] No Panel InformationOrdered By: Rosy Sheppard on 07-17-2024 [facility] Laboratory - Hematology and Cell countson 03-22-2024 HbA1c (Bld) [Mass fraction] 11.8 % [facility] No Panel Informationon 03-22 [facility] Laboratory - Hematology and Cell countson 02-17-2024 HbA1c (Bld) [Mass fraction] 11.2 % [facility] No Panel Informationon 02-16 [facility] CBC (H/H, RBC, INDICES, WBC, PLT)on 02-02-2024 Erythrocyte distribution width (RBC) [Ratio] 13.9 % Normal 11.0-15.0 [facility] Comment on above: Performed By: #### 3 6730, 5041, 0568, 82244, 8502 #### [facility] [address], [address] [place] [address] Parts Delivery Driver: Luigi Grace MD Hematocrit (Bld) [Volume fraction] 51.3 % High 38.5-50.0 [facility] Comment on above: Performed By: #### 3 6127, 7600, 5363, 39218, 1759 #### [facility] [place] [address] Parts Delivery Driver: Luigi Grace MD Hemoglobin (Bld) [Mass/Vol] 16.5 g/dL Normal 13.2-17.1 [facility] Comment on above: Performed By: #### 3 6127, 7600, 5363, 43413, 1759 #### [facility] [place] [address] [employer] Delivery Driver: Luigi Grace MD MCH (RBC) [Entitic mass] 32.2 pg Normal 27.0-33.0 [facility] Comment on above: Performed By: #### 3 61, 7600, 5363, 37912, 175 #### [facility] [place] [address] [employer] Delivery Driver: Luigi Grace MD MCHC (RBC) [Mass/Vol] 32.2 g/dL Normal 32.0-36.[address] [facility] Comment on above: Result Comment: For adults, a slight decrease in the calculated MCHC value (in the range of 30 to 32 g/dL) is most likely not clinically significant; however, it should be interpreted with caution in correlation with other red cell parameters and the patient's clinical condition. Performed By: #### 3 61, 7600, 5363, 02855, 1759 #### [facility] [place] [address] [employer] Delivery Driver: Luigi Grace MD MCV (RBC) [Entitic vol] 100.0 fL Normal 80.0-100.0 [facility] Comment on above: Performed By: #### 3 6127, 7600, 5363, 01988, 1759 #### [facility] [address] [place] [address] Parts Delivery Driver: Luigi Grace MD Platelet mean volume (Bld) [Entitic vol] 9.2 fL Normal 7.5-12.5 [facility] Comment on above: Performed By: #### 3 6127, 7600, 5363, 42948, 1759 #### [facility] [place] [address] Parts Delivery Driver: Luigi Grace MD Platelets (Bld) [#/Vol] 306 10*3/uL Normal 140-400 [facility] Comment on above: Performed By: #### 3 6127, 7600, 5363, 08944, 1759 #### [facility] [place] [address] Parts Delivery Driver: Luigi Grace MD RBC (Bld) [#/Vol] 5.13 10*6/uL Normal 4.20-5.80 [facility] Comment on above: Performed By: #### 3 6127, 7600, 5363, 28233, 1759 #### [facility] [place] [address] Parts Delivery Driver: Luigi Grace MD WBC (Bld) [#/Vol] 10.1 10*3/uL Normal 3.8-10.8 [facility] Comment on above: Performed By: #### 3 6127, 7600, 5363, 68967, 1759 #### [facility] [place] [address] Parts Delivery Driver: Luigi Grace MD [facility] METABOLIC [facility] 02-02-2024 Albumin [Mass/Vol] 4.5 g/dL Normal 3.6-5.1 [facility] Comment on above: Performed By: #### 3 6127, 7600, 5363, 34721, 1759 #### [facility] of [place] [address] Parts Delivery Driver: Luigi Grace MD Albumin/Globulin [Mass ratio] 1.2 {ratio} Normal 1.0-2.5 [facility] Comment on above: Performed By: #### 3 6127, 7600, 5363, 34287, 1759 #### [facility] [place] [address] Parts Delivery Driver: Luigi Grace MD ALP [Catalytic activity/Vol] 136 U/L Normal 35-144 [facility] Comment on above: Performed By: #### 3 6127, 7600, 5363, 51918, 1759 #### [facility] [place] [address] Parts Delivery Driver: Luigi Grace MD ALT [Catalytic activity/Vol] 97 U/L High 9-46 [facility] Comment on above: Performed By: #### 3 6127, 7600, 5363, 28823, 1759 #### [facility] [place] [address] Parts Delivery Driver: Luigi Grace MD AST [Catalytic activity/Vol] 55 U/L High 10-35 [facility] Comment on above: Performed By: #### 3 61, 7600, 5363, 46827, 175 #### [facility] [place] [address] [employer] Delivery Driver: Luigi Grace MD Bilirubin [Mass/Vol] 0.8 mg/dL Normal 0.2-1.2 [facility] Comment on above: Performed By: #### 3 6127, 7600, 5363, 11550, 175 #### [facility] [place] [address] Parts Delivery Driver: Luigi Grace MD Calcium [Mass/Vol] 11.2 mg/dL High 8.6-10.3 [facility] Comment on above: Performed By: #### 3 6127, 7600, 5363, 72633, 1759 #### [facility] [place] [address] Parts Delivery Driver: Luigi Grace MD Chloride [Moles/Vol] 97 mmol/L Low 98-110 [facility] Comment on above: Performed By: #### 3 6127, 7600, 5363, 31329, 1759 #### [facility] [place] [address] Parts Delivery Driver: Luigi Grace MD CO2 [Moles/Vol] 27 mmol/L Normal 20-32 [facility] Comment on above: Performed By: #### 3 6127, 7600, 5363, 23749, 1759 #### [facility] [place] [address] [employer] Delivery Driver: Luigi Grace MD Creatinine [Mass/Vol] 1.28 mg/dL Normal 0.70-1.[address] [facility] Comment on above: Performed By: #### 3 6127, 7600, 5363, 48265, 1759 #### [facility] [place] [address] Parts Delivery Driver: Luigi Grace MD GFR/1.73 sq M.predicted among non-blacks MDRD (S/P/Bld) [Vol rate/Area] 59 mL/min/{1.73_m2} Low > OR = 60 [facility] Comment on above: Performed By: #### 3 6127, 7600, 5363, 52575, 1759 #### [facility] [place] [address] Parts Delivery Driver: Luigi Grace MD Globulin (S) [Mass/Vol] 3.7 g/dL Normal 1.9-3.7 [facility] Comment on above: Performed By: #### 3 6127, 7600, 5363, 40616, 1759 #### [facility] [place] [address] Parts Delivery Driver: Luigi Grace MD Glucose [Mass/Vol] 268 mg/dL High 65-99 [facility] Comment on above: Result Comment: Fasting reference interval For someone without known diabetes, a glucose value >125 mg/dL indicates that they may have diabetes and this should be confirmed with a follow-up test. Performed By: #### 3 6127, 7600, 5363, 55596, 1759 #### [facility] [place] [address] Parts Delivery Driver: Luigi Grace MD Potassium [Moles/Vol] 5.4 mmol/L High 3.5-5.[address] [facility] Comment on above: Performed By: #### 3 6127, 7600, 5363, 90805, 1759 #### [facility] [place] [address] Parts Delivery Driver: Luigi Grace MD Protein [Mass/Vol] 8.2 g/dL High 6.1-8.1 [facility] Comment on above: Performed By: #### 3 6127, 7600, 5363, 00532, 1759 #### [facility] [place] [address] Parts Delivery Driver: Luigi Grace MD Sodium [Moles/Vol] 135 mmol/L Normal 135-146 [facility] Comment on above: Performed By: #### 3 6127, 7600, 5363, 24003, 1759 #### [facility] [place] [address] Parts Delivery Driver: Luigi Grace MD Urea nitrogen [Mass/Vol] 42 mg/dL High 7-25 [facility] Comment on above: Performed By: #### 3 6127, 7600, 5363, 42663, 1759 #### [facility] [place] [address] Parts Delivery Driver: Luigi Grace MD Urea nitrogen/Creatinine [Mass ratio] 33 mg/mg High 6-22 [facility] Comment on above: Performed By: #### 3 6127, 7600, 5363, 76708, 1759 #### [facility] [place] [address] Parts Delivery Driver: Luigi Grace MD LIPID PANEL, [facility] 10-3 Cholesterol [Mass/Vol] 171 mg/dL Normal <200 [facility] Comment on above: Performed By: #### 3 6127, 7600, 5363, 58469, 1759 #### [facility] [address], [address] [place] [address] Parts Delivery Driver: Luigi Grace MD Cholesterol in HDL [Mass/Vol] 39 mg/dL Low > OR = 40 [facility] Comment on above: Performed By: #### 3 6127, 7600, 5363, 80074, 1759 #### [facility] [address], [address] [place] [address] Parts Delivery Driver: Luigi Grace MD Cholesterol in LDL [Mass/Vol] 98 mg/dL Normal [facility] Comment on above: Result Comment: Refe rence range: <100 Desirable range <100 mg/dL for primary prevention; <70 mg/dL for patients with CHD or diabetic patients with > or = 2 CHD risk factors. LDL-C is now calculated using the Mindy calculation, which is a validated novel method providing better accuracy than the Friedewald equation in the estimation of LDL-C. Javed HYDE et al. VERONICA. 2013;310(19): 6081-1897 (http://education.Idibon.Convertigo/faq/GSE044) Performed By: #### 3 6127, 7600, 5363, 56957, 1759 #### [facility] [address], [address] [place] [address] Parts Delivery Driver: Luigi Grace MD Cholesterol.total/Chol esterol in HDL [Mass ratio] 4.4 {ratio} Normal <5.0 [facility] Comment on above: Performed By: #### 3 6127, 7600, 5363, 02052, 1759 #### [facility] [address], [address] [place] [address] Parts Delivery Driver: Luigi Grace MD NON HDL CHOLESTEROL 132 mg/dL (calc) High <130 [facility] Comment on above: Result Comment: For patients with diabetes plus 1 major ASCVD risk factor, treating to a non-HDL-C goal of <100 mg/dL (LDL-C of <70 mg/dL) is considered a therapeutic option. Performed By: #### 3 6127, 7600, 5363, 00850, 1759 #### [facility] [address], [address] [place] [address] Parts Delivery Driver: Luigi Grace MD Triglyceride [Mass/Vol] 220 mg/dL High <150 [facility] Comment on above: Result Comment: If a non-fasting specimen was collected, consider repeat triglyceride testing on a fasting specimen if clinically indicated. Livier et al. J. of Clin. Lipidol. 2015;9:129-169. Performed By: #### 3 6127, 7600, 5363, 86341, 1759 #### [facility] [place] [address] Parts Delivery Driver: Luigi Grace MD PSA, TOTALon 02-02-2024 PSA, TOTAL 0.21 ng/mL Normal < OR = 4.00 [facility] Comment on above: Result Comment: The total PSA value from this assay system is standardized against the WHO standard. The test result will be approximately 20% lower when compared to the equimolar-standardized total PSA (Rodrigo Binu). Comparison of serial PSA results should be interpreted with this fact in mind. This test was performed using the Siemens chemiluminescent method. Values obtained from different assay methods cannot be used interchangeably. PSA levels, regardless of value, should not be interpreted as absolute evidence of the presence or absence of disease. Performed By: #### 3 6127, 7600, 5363, 51521, 1759 #### [facility] [address], [address] [place] [address] Parts Delivery Driver: Luigi Grace MD TSH W/REFLEX TO FT4on 2023 TSH W/REFLEX TO FT4 2.43 mIU/L Normal 0.40-4.50 [facility] Comment on above: Performed By: #### 3 6127, 7600, 5363, 73857, 1759 #### [facility] [address], [address] [place] [address] Parts Delivery Driver: Luigi Grace MD ECG 12 Leadon 01-13-2024 Junctional rhythm wi th retrograde P wave [facility] Work Phone: Laboratory - Hematology and Cell countson 12-21-2023 HbA1c (Bld) [Mass fraction] 10.2 % [facility] No Panel Informationon 12-20 [facility] ECG 12 Leadon 10-10-2023 Junctional rhythm ra te 41 bpm Underlying severe sinus bradycardia QTc 341 ms [facility] Work Phone: Office Visit (Cardiology)on 09-08-2022 Follow-up visit Diagnoses/Problems [...] Recorded: 08Sep2022 10:06AM Heart Rate40, R Radial [id number], RUE, Sitting [id number], RUE, Sitting Height5 ft 7 in Vwoinv064 lb BMI Grtozcjcva35.52 kg/m2 BSA Calculated2.39 Tobacco Useb) No PHQ-2 [...] . Signatures Electronically signed by : Colin Lion MD; Sep 08 2022 5:13PM EST (Author) Normal [facility] Tobacco Screening.on 023 Adult depression screening assessment No [facility] 600 DO Work Phone: Fall risk assessment a) No falls within the last year [facility] k 600 DO Work Phone: Tobacco use status CPH[facility] b) No [facility] 600 DO Work Phone: PROF CHEM 8 (BAS METB)on Anion gap [Moles/Vol] 19.1 mmol/L Normal [facility] Comment on above: Performed By: #### B MP #### [facility] [address] [place] [address] Dr. Rubens Rodriguez Calcium [Mass/Vol] 9.6 mg/dL Normal 8.5-10.1 [facility] Comment on above: Performed By: #### B MP #### [facility] [address] [place] [address] [address] Rubens Rodriguez Chloride [Moles/Vol] 111 mmol/L Critically high 98-107 [facility] Comment on above: Performed By: #### B MP #### [facility] [address] [place] [address] [address] Rubens Rodriguez CO2 [Moles/Vol] 16.6 mmol/L Critically low 21.0-32.0 [facility] Comment on above: Performed By: #### B MP #### [facility] [address] [place] [address] [address] Rubens Rodriguez Creatinine [Mass/Vol] 1.32 mg/dL Critically high 0.70-1.30 [facility] Comment on above: Performed By: #### B MP #### [facility] [address] [place] [address] [address] Rubens Rodriguez EGFR-AF NEPALESE >60 Normal >=60 [facility] Comment on above: Performed By: #### B MP #### [facility] [address] [place] [address] [address] Rubens Rodriguez EGFR-NON AF NEPALESE 53 mL/min/1.73m2 Critically low >=60 [facility] Comment on above: Performed By: #### B MP #### [facility] [address] [place] [address] [address] Rubens Rodriguez Glucose [Mass/Vol] 139 mg/dL Critically high 74-106 T [facility] Comment on above: Performed By: #### B MP #### [facility] [address] [place] [address] [address] Rubens Rodriguez Potassium [Moles/Vol] 6.5 mmol/L Critically high 3.5-5.1 [facility] Comment on above: Performed By: #### B MP #### [facility] [address] [place] [address] [address] Rubens Rodriguez Sodium [Moles/Vol] 135 mmol/L Critically low 136-[address] [facility] Comment on above: Performed By: #### B MP #### [facility] [address] [place] [address] [address] Rubens Rodriguez Urea nitrogen [Mass/Vol] 52.0 mg/dL Critically high 7.0-18.0 [facility] Comment on above: Performed By: #### B MP #### [facility] [address] [place] [address] [address] Rubens Rodriguez Urea nitrogen/Creatinine [Mass ratio] 39.4 mg/mg Normal [facility] Comment on above: Performed By: #### B MP #### [facility] [address] [place], [place] [address] Dr. Rubens Rodriguez POINT OF CARE GLUCOSEon - Glucose [Mass/Vol] 201 mg/dL Critically high 74-106 T [facility] Comment on above: Performed By: #### P OCGLUC #### [facility] [address] [place] [address] [address] Rubens Rodriguez MRI LSPINE WO W [...] by: TAMMY DANIELLE Date: 2022-07-02 13:42 Normal [facility] XR LSPINE W_OBLS AND FLEX_EX Ton 06-15-2022 [...] by: JOYA MCRAE Date: 2022-06-15 16:45 Normal [facility] XR LSPINE MIN 4 VIEWSon 04-05 XR [...] degenerative disc disease. Electronically authenticated by: JOYA MCRAE Date: 2022-04-30 14:23 Normal [facility] A1C with Estimated Average G ziyad 03-22-2022 Glucose [Mass/Vol] 154 mg/dL Normal [facility] Comment on above: Result Comment: PERF ORMED BY: [facility] [address] [place] [address] PATHOLOGIST HEEL GUMMER YAMILET BACK M.D. Performed By: #### C K, CKMB, HS TROP #### [facility] [address] HbA1c (Bld) [Mass fraction] 7.0 % High 4.3-5.6 [facility] Comment on above: Result Comment: Incr eased risk for diabetes: 5.7 - 6.4 diabetes: >6.4 glycemic control for adults with diabetes: <7.0 Performed By: #### C K, CKMB, HS TROP #### [facility] [address] Cholesterol [Mass/volume] in Serum or PlasmaOrdered By: Yves Garcia on 03-22-2022 Cholesterol [Mass/Vol] 125 mg/dL 140-200 [facility] Comment on above: Chol less than 200 m g/dl low riskChol 201-239 mg/dl borderline riskChol 240 mg/dl and greater high risk Cholesterol in LDL Calc [Mas s/Vol]Ordered By: Yves Garcia on 03-22-2022 Cholesterol in LDL [Mass/Vol] 59 mg/dL 0-100 [facility] Comment on above: LDL ATP III CLASSIFI CATIONLDL less than 100 mg/dL OptimalLDL 100-129 mg/dL Near or above optimalLDL 130-159 mg/dL Borderline highLDL 160-189 mg/dL HighLDL greater than 189 mg/dL Very high Cholesterol in VLDL Calc [Ma ss/Vol]Ordered By: Yves Garcia on 03-22-2022 Cholesterol in VLDL [Mass/Vol] 31 mg/dL [facility] Creatine Kinaseon 03-22-2022 CK [Catalytic activity/Vol] 96 U/L Normal - [facility] Comment on above: Performed By: #### C K, CKMB, HS TROP #### [facility] [address] [place] [id number] [place] CK [Catalytic activity/Vol] 103 U/L Normal 22-269 [facility] Comment on above: Performed By: #### C K, CKMB, HS TROP #### [facility] [address] Creatine kinase [Enzymatic a ctivity/volume] in Serum or PlasmaOrdered By: Yves Garcia on 03-22-2022 CK [Catalytic activity/Vol] 96 U/L [facility] Creatinine Kinase MBon 03-22 CK.MB [Mass/Vol] 1.7 ng/mL Normal 0.6-6.3 [facility] Comment on above: Performed By: #### C K, CKMB, HS TROP #### [address] CKMB Relative Index 1.7 % Normal 0.00-2.50 [facility] [place] [facility] Comment on above: Performed By: #### C K, CKMB, HS TROP #### [facility] [address] CK.MB [Mass/Vol] 2.1 ng/mL Normal 0.6-6.3 [facility] Comment on above: Performed By: #### C K, CKMB, HS TROP #### [address] CKMB Relative Index 2.0 % Normal 0.00-2.50 [facility] [place] [facility] Comment on above: Performed By: #### C K, CKMB, HS TROP #### [place] [address] [place] ECG 12 lead ECGon 03-22-2022 ECG 12 lead ECG [facility] [address] [place] [address] [place] [address] Electrocardiograph Report Signed Patient: Tammy Wu MR#: [id number] 94 : 1950 Acct:[id number] Age/Sex: 72 / M ADM Date: 03/21/22 Loc: Room: [address] [place] [address] Type: DIS INOo Attending Dr: Jakub Andrews MD Ordering Provider: Yves Garcia, DO Date of Service: 03/22/22 ECG/ECG 12 [...] MUS Signed By Mercedes Hilliard DO 03/24 [facility] Glucose Glucometer (BldC) [M ass/Vol]Ordered By: Jakub Andrews on 03-22-2022 Glucose [Mass/Vol] 159 mg/dL [facility] Comment on above: Random Glucose Refer ence Range is dependent on time and content of last meal. Glucose of more than 200 mg/dL in a nonstressed, ambulatory subject supports the diagnosis of Diabetes Mellitus. Glucose Poct Glucometerson 1 05-23-2021 Commemt1 Glu2: Cleaned Meter [facility] Comment on above: Result Comment: PERF ORMED BY: [place] [address] PATHOLOGIST HEEL GUMMER YAMILET BACK M.D. Performed By: #### Ralph Mahoney, CKMB, TROP #### [facility] [address] [place] [address] Glucose [Mass/Vol] 159 mg/dL [facility] Comment on above: Result Comment: [place] om Glucose Reference Range is dependent on time and content of last meal. Glucose of more than 200 mg/dL in a nonstressed, ambulatory subject supports the diagnosis of Diabetes Mellitus. Performed By: #### C K, CKMB, HS TROP #### [facility] [address] [place] [address] Commemt1 Glu2: Cleaned Meter [facility] Comment on above: Result Comment: PERF ORMED BY: [place] [address] PATHOLOGIST HEEL GUMMER YAMILET BACK M.D. Performed By: #### Ralph Mahoney, CKSTEFFANY, HS TROP #### [facility] [address] [place] [address] [place] Glucose [Mass/Vol] 154 mg/dL Normal [facility] Comment on above: Result Comment: [place] Glucose Reference Range is dependent on time and content of last meal. Glucose of more than 200 mg/dL in a nonstressed, ambulatory subject supports the diagnosis of Diabetes Mellitus. Performed By: #### LUKE Mendoza, HS TROP #### [facility] [address] [place] [address] [place] Glucose [Mass/Vol] 137 mg/dL Normal [facility] Comment on above: Result Comment: [place] Glucose Reference Range is dependent on time and content of last meal. Glucose of more than 200 mg/dL in a nonstressed, ambulatory subject supports the diagnosis of Diabetes Mellitus. PERFORMED BY: [place] [address] PATHOLOGIST HEEL GUMMER YAMILET BACK M.D. Performed By: #### LUKE Mendoza, HS TROP #### [address] Glucose mean value [Mass/vol ume] in Blood Estimated from glycated hemoglobinOrdered By: Yves Garcia on 03-22-2022 Average glucose Estimated from glycated hemoglobin (Bld) [Mass/Vol] 154 mg/dL [facility] Hemoglobin A1c percentageOrd ered By: Yves Garcia on 03-22-2022 HbA1c (Bld) [Mass fraction] 7.0 % 4.3-5.6 [facility] Comment on above: Increased risk for d iabetes: 5.7 - 6.4diabetes: >6.4glycemic control for adults with diabetes: <7.0 Lipid Panelon 03-22-2022 Cholesterol [Mass/Vol] 125 mg/dL Low 140-200 [facility] Comment on above: Result Comment: Chol less than 200 mg/dl low risk Chol 201-239 mg/dl borderline risk Chol 240 mg/dl and greater high risk Performed By: #### C K, CKMB, HS TROP #### [facility] [address] Cholesterol in HDL [Mass/Vol] 34 mg/dL Normal 29-71 [facility] Comment on above: Result Comment: HDL CHOL ATP-III CLASSIFICATION Cardiovascular Risk HDL > or equal to 60 mg/dL LOW HDL < 40 mg/dL HIGH Performed By: #### C K, CKMB, HS TROP #### [facility] [address] Cholesterol.total/Chol esterol in HDL [Mass ratio] 3.7 {ratio} Normal <5.0 [facility] Comment on above: Result Comment: PERF ORMED BY: [place] [address] PATHOLOGIST HEEL GUMMER YAMILET BACK M.D. Performed By: #### C K, CKMB, HS TROP #### [facility] [address] LDL Cholesterol,Calculated 59 mg/dL Normal 0-100 [facility] Comment on above: Result Comment: LDL ATP III CLASSIFICATION LDL less than 100 mg/dL Optimal LDL 100-129 mg/dL Near or above optimal LDL 130-159 mg/dL Borderline high LDL 160-189 mg/dL High LDL greater than 189 mg/dL Very high Performed By: #### C K, CKMB, HS TROP #### [facility] [address] [place] [address] [place] Triglyceride w/Reflex 158 mg/dL High 35-149 [facility] Comment on above: Result Comment: TRIG ATP III CLASSIFICATION TRIG less than 150 mg/dL Normal TRIG 150-199 mg/dL Borderline high TRIG 200-500 mg/dL High TRIG greater than 500 mg/dL Very high Standard traceable to the Center for Disease Conrtrol and Prevention (CDC) test method. Performed By: #### C K, CKMB, HS TROP #### [facility] [address] VLDL CHOLESTEROL 31 mg/dL Normal [facility] Comment on above: Performed By: #### C K, CKMB, HS TROP #### [facility] [address] No Panel InformationOrdered By: Jakub Andrews on 03-22-2022 Bedside Glucose Comment Glu2: cleaned meter [facility] Serum or plasma creatine kin ase MB (CKMB)/total creatine kinase (CK) ratio by calculaOrdered By: Yves Garcia on 03-22-2022 CK.MB Calc [Catalytic fraction] 1.7 % 0.00-2.50 [facility] Serum or plasma creatine kin ase MB measurement (mass/volume)Ordered By: Yves Garcia on 03-22-2022 CK.MB [Mass/Vol] 1.7 ng/mL 0.6-6.3 [facility] Serum or plasma high density lipoprotein (HDL) cholesterol measurementOrdered By: Yves Garcia on 03-22-2022 Cholesterol in HDL [Mass/Vol] 34 mg/dL 29-71 [facility] Comment on above: HDL CHOL ATP-III CLA SSIFICATION Cardiovascular RiskHDL > or equal to 60 mg/dL LOWHDL < 40 mg/dL HIGH Serum or plasma total choles terol/high density lipoprotein (HDL) cholesterol mass ratOrdered By: Yves Garcia on 03-22-2022 Cholesterol.total/Chol esterol in HDL [Mass ratio] 3.7 {ratio} <5.0 [facility] Triglyceride [Mass/volume] i n Serum or PlasmaOrdered By: Yves Garcia on 03-22-2022 Triglyceride [Mass/Vol] 158 mg/dL 35-149 [facility] Comment on above: TRIG ATP III CLASSIF ICATIONTRIG less than 150 mg/dL NormalTRIG 150-199 mg/dL Borderline highTRIG 200-500 mg/dL High TRIG greater than 500 mg/dL Very highStandard traceable to the Center for Disease Conrtrol and Prevention (CDC) test method. Troponin I High Sensitivityo n 03-22-2022 Troponin I High Sensitivity 18 pg/mL Normal 0-20 [facility] Comment on above: Result Comment: PERF ORMED BY: [place] [address] PATHOLOGIST HEEL GUMMER YAMILET BACK M.D. Performed By: #### C K, CKMB, HS TROP #### [address] Troponin I High Sensitivity 19 pg/mL Normal 0-20 [facility] Comment on above: Result Comment: PERF ORMED BY: [place] [address] PATHOLOGIST HEEL GUMMER YAMILET BACK M.D. Performed By: #### C K, CKMB, HS TROP #### [address] Troponin I.cardiac [Mass/vol ume] in Serum or Plasma by High sensitivity methodOrdered By: Yves Garcia on 03-22-2022 Troponin I.cardiac High sensitivity method [Mass/Vol] 18 pg/mL 0-20 [facility] Activated partial thrombopla stin time (aPTT) in platelet poor plasma by coagulation aOrdered By: Juan Pablo Aguilar on 03-21-2022 aPTT Coag (PPP) [Time] 28.5 s 25.1-36.5 [facility] B-Type Natriuretic Peptideon 03-21-2022 Natriuretic peptide B (Bld) [Mass/Vol] 74.0 pg/mL Normal 5-100 [facility] Comment on above: Result Comment: PERF ORMED BY: [place] [address] PATHOLOGIST HEEL GUMMER YAMILET BACK M.D. Performed By: #### C K, CKMB, HS TROP #### [address] Basic Metabolic Panelon 03-04 Anion gap [Moles/Vol] 12.7 mmol/L Normal 6.0-15.0 [facility] Comment on above: Performed By: #### B SPRING COILER HAND, CBC, PT, PTT, BMP, CK, CKMB, HS TROP #### [address] Calcium [Mass/Vol] 10.0 mg/dL Normal 8.2-10.2 [facility] Comment on above: Performed By: #### B SPRING COILER HAND, CBC, PT, PTT, BMP, CK, CKMB, HS TROP #### [facility] [address] Chloride [Moles/Vol] 104 mmol/L Normal 95-114 [facility] Comment on above: Performed By: #### B SPRING COILER HAND, CBC, PT, PTT, BMP, CK, CKMB, HS TROP #### [address] CO2 [Moles/Vol] 24.4 mmol/L Normal 22.0-30.0 [facility] Comment on above: Performed By: #### B SPRING COILER HAND, CBC, PT, PTT, BMP, CK, CKMB, HS TROP #### [address] Creatinine [Mass/Vol] 0.96 mg/dL Normal 0.64-1.27 [facility] Comment on above: Performed By: #### B SPRING COILER HAND, CBC, PT, PTT, BMP, CK, CKMB, HS TROP #### [address] Creatinine Clr Calc Pharmacy 94.11 [facility] Comment on above: Result Comment: PERF ORMED BY: [place] [address] PATHOLOGIST HEEL GUMMER YAMILET BACK M.D. Performed By: #### B SPRING COILER HAND, CBC, PT, PTT, BMP, CK, CKMB, HS TROP #### [address] Estimated GFR ( Anum > 60 [facility] Comment on above: Result Comment: GFR estimated reference range: According to KDOQI guidelines, <60 ml/min/1.73m2 is sufficient to diagnose a patient with chronic kidney disease. Performed By: #### B SPRING COILER HAND, CBC, PT, PTT, BMP, CK, CKMB, HS TROP #### [facility] [address] Estimated GFR (Non- Am > 60 Normal [facility] Comment on above: Performed By: #### B SPRING COILER HAND, CBC, PT, PTT, BMP, CK, CKMB, HS TROP #### [facility] [address] Glucose [Mass/Vol] 123 mg/dL High 70-100 [facility] Comment on above: Result Comment: [facility] Glucose Reference Range is dependent on time and content of last meal. Glucose of more than 200 mg/dL in a nonstressed, ambulatory subject supports the diagnosis of Diabetes Mellitus. ADA recommended reference range Performed By: #### B SPRING COILER HAND, CBC, PT, PTT, BMP, CK, CKMB, HS TROP #### [facility] [address] Potassium [Moles/Vol] 5.1 mmol/L Normal 3.5-5.1 [facility] Comment on above: Performed By: #### B SPRING COILER HAND, CBC, PT, PTT, BMP, CK, CKMB, HS TROP #### [facility] [address] Sodium [Moles/Vol] 136 mmol/L Normal 136-146 [facility] Comment on above: Performed By: #### B SPRING COILER HAND, CBC, PT, PTT, BMP, CK, CKMB, HS TROP #### [address] Urea nitrogen [Mass/Vol] 20 mg/dL Normal 9-23 [facility] Comment on above: Performed By: #### B SPRING COILER HAND, CBC, PT, PTT, BMP, CK, CKMB, HS TROP #### [facility] [address] [place] [address] [place] Basophils Auto (Bld) [#/Vol] Ordered By: Juan Pablo Aguilar on 03-21-2022 Basophils (Bld) [#/Vol] 0.0 10*3/uL 0.0-0.2 [facility] Basophils/100 WBC Auto (Bld) Ordered By: Juan Pablo Aguilar on 03-21-2022 Basophils/100 WBC (Bld) 0.6 % . [facility] Complete Blood Count Auto Di ffon 03-21-2022 Basophils (Bld) [#/Vol] 0.0 10*3/uL Normal 0.0-0.2 [facility] Comment on above: Result Comment: PERF ORMED BY: [place] [address] PATHOLOGIST HEEL GUMMER YAMILET BACK M.D. Performed By: #### B SPRING COILER HAND, CBC, PT, PTT, BMP, CK, CKMB, HS TROP #### [address] Basophils/100 WBC (Bld) 0.6 % Normal . [facility] Comment on above: Performed By: #### B SPRING COILER HAND, CBC, PT, PTT, BMP, CK, CKMB, HS TROP #### [address] Eosinophils (Bld) [#/Vol] 0.2 10*3/uL Normal 0.0-0.45 [facility] Comment on above: Performed By: #### B SPRING COILER HAND, CBC, PT, PTT, BMP, CK, CKMB, HS TROP #### [address] Eosinophils/100 WBC (Bld) 2.7 % Normal . [facility] Comment on above: Performed By: #### B SPRING COILER HAND, CBC, PT, PTT, BMP, CK, CKMB, HS TROP #### [address] Erythrocyte distribution width (RBC) [Ratio] 14.1 % Normal 12.0-14.8 [facility] Comment on above: Performed By: #### B SPRING COILER HAND, CBC, PT, PTT, BMP, CK, CKMB, HS TROP #### [address] Hematocrit (Bld) [Volume fraction] 39.2 % Normal 38.8-50.0 [facility] Comment on above: Performed By: #### B SPRING COILER HAND, CBC, PT, PTT, BMP, CK, CKMB, HS TROP #### [address] Hemoglobin (Bld) [Mass/Vol] 12.9 g/dL Low 13.0-17.0 [facility] Comment on above: Performed By: #### B SPRING COILER HAND, CBC, PT, PTT, BMP, CK, CKMB, HS TROP #### [address] Lymphocytes (Bld) [#/Vol] 1.9 10*3/uL Normal 1.00-4.8 [facility] Comment on above: Performed By: #### B SPRING COILER HAND, CBC, PT, PTT, BMP, CK, CKMB, HS TROP #### [address] Lymphocytes/100 WBC (Bld) 26.9 % Normal . [facility] Comment on above: Performed By: #### B SPRING COILER HAND, CBC, PT, PTT, BMP, CK, CKMB, HS TROP #### [address] MCH (RBC) [Entitic mass] 30.8 pg Normal 27.5-35.2 [facility] Comment on above: Performed By: #### B SPRING COILER HAND, CBC, PT, PTT, BMP, CK, CKMB, HS TROP #### [address] MCV (RBC) [Entitic vol] 93.4 fL Normal 83.5-101 [facility] Comment on above: Performed By: #### B SPRING COILER HAND, CBC, PT, PTT, BMP, CK, CKMB, HS TROP #### [address] Mean Corpuscular HGB Conc 33.0 g/dL Normal 32.5-35.6 [facility] Comment on above: Performed By: #### B SPRING COILER HAND, CBC, PT, PTT, BMP, CK, CKMB, HS TROP #### [address] Monocytes (Bld) [#/Vol] 0.8 10*3/uL Normal 0.0-0.8 [facility] Comment on above: Performed By: #### B SPRING COILER HAND, CBC, PT, PTT, BMP, CK, CKMB, HS TROP #### [address] Monocytes/100 WBC (Bld) 17.83 % Normal 0.00-20.00 [facility] Comment on above: Performed By: #### B SPRING COILER HAND, CBC, PT, PTT, BMP, CK, CKMB, HS TROP #### [address] Monocytes/100 WBC (Bld) 11.1 % Normal . [facility] Comment on above: Performed By: #### B SPRING COILER HAND, CBC, PT, PTT, BMP, CK, CKMB, HS TROP #### [address] Neutrophils (Bld) [#/Vol] 4.2 10*3/uL Normal 1.8-7.7 [facility] Comment on above: Performed By: #### B SPRING COILER HAND, CBC, PT, PTT, BMP, CK, CKMB, HS TROP #### [address] Neutrophils/100 WBC (Bld) 58.7 % Normal . [facility] Comment on above: Performed By: #### B SPRING COILER HAND, CBC, PT, PTT, BMP, CK, CKMB, HS TROP #### [address] NRBC% 0.1 /100{WBC} Normal 0-0.5 [facility] Comment on above: Performed By: #### B SPRING COILER HAND, CBC, PT, PTT, BMP, CK, CKMB, HS TROP #### [address] Platelet mean volume (Bld) [Entitic vol] 7.8 fL Normal 6.6-10.1 [facility] Comment on above: Performed By: #### B SPRING COILER HAND, CBC, PT, PTT, BMP, CK, CKMB, HS TROP #### [address] Platelets (Bld) [#/Vol] 205 10*3/uL Normal 150-450 [facility] Comment on above: Performed By: #### B SPRING COILER HAND, CBC, PT, PTT, BMP, CK, CKMB, HS TROP #### [facility] [address] RBC (Bld) [#/Vol] 4.20 10*6/uL Normal 3.90-5.60 [facility] Comment on above: Performed By: #### B SPRING COILER HAND, CBC, PT, PTT, BMP, CK, CKMB, HS TROP #### [facility] [address] WBC (Bld) [#/Vol] 7.1 10*3/uL Normal 4.1-10.5 [facility] Comment on above: Performed By: #### B SPRING COILER HAND, CBC, PT, PTT, BMP, CK, CKMB, HS TROP #### [facility] [address] Creatine Kinaseon 03-21-2022 CK [Catalytic activity/Vol] 122 U/L Normal 22-269 [facility] Comment on above: Performed By: #### C K, CKMB, HS TROP #### [facility] [address] CK [Catalytic activity/Vol] 153 U/L Normal 22-269 [facility] Comment on above: Performed By: #### B SPRING COILER HAND, CBC, PT, PTT, BMP, CK, CKMB, HS TROP #### [facility] [address] Creatine kinase [Enzymatic a ctivity/volume] in Serum or PlasmaOrdered By: Juan Pablo Aguilar on 03-21-2022 CK [Catalytic activity/Vol] 153 U/L [facility] Creatinine Kinase MBon 03-21 CK.MB [Mass/Vol] 2.8 ng/mL Normal 0.6-6.3 [facility] Comment on above: Performed By: #### C K, CKMB, HS TROP #### [facility] [address] CKMB Relative Index 2.2 % Normal 0.00-2.50 [facility] Comment on above: Performed By: #### C K, CKMB, HS TROP #### [facility] [address] CK.MB [Mass/Vol] 3.0 ng/mL Normal 0.6-6.3 [facility] Comment on above: Performed By: #### C K, CKMB, HS TROP #### [facility] [address] CKMB Relative Index 1.9 % Normal 0.00-2.50 [facility] Comment on above: Performed By: #### C K, CKMB, HS TROP #### [facility] [address] [place] [address] [place] Creatinine and Glomerular fi ltration rate.predicted panel (S/P/Bld)Ordered By: Juan Pablo Aguilar on 03-21-2022 Creatinine [Mass/Vol] 0.96 mg/dL 0.64-1.27 [facility] ECG 12 lead ECGon 03-21-2022 ECG 12 lead ECG [facility] Main [place] [address] [place] [address] Electrocardiograph Report Signed Patient: Tammy Wu MR#: [id number] [birth year] : 1950 Acct:[id number] Age/Sex: 72 / M ADM Date: 03/21/22 Loc: Room: [address] [place] [address] Type: DIS INOo Attending Dr: Jakub Andrews [...] By Brook Whittington MD 03/21/22 1635 Normal [facility] Eosinophils Auto (Bld) [#/Vo l]Ordered By: Juan Pablo Aguilar on 03-21-2022 Eosinophils (Bld) [#/Vol] 0.2 10*3/uL 0.0-0.45 [facility] Eosinophils/100 WBC Auto (Bl d)Ordered By: Juan Pablo Aguilar on 03-21-2022 Eosinophils/100 WBC (Bld) 2.7 % . [facility] Erythrocyte distribution wid th Auto (RBC) [Ratio]Ordered By: Juan Pablo Aguilar on 03-21-2022 Erythrocyte distribution width (RBC) [Ratio] 14.1 % 12.0-14.8 [facility] Estimated glomerular filtrat ion rate (GFR) non- AmericanOrdered By: Juan Pablo Aguilar on 03-21-2022 GFR/1.73 sq M.predicted among non-blacks MDRD (S/P/Bld) [Vol rate/Area] > 60 mL/Min [facility] Glucose Poct Glucometerson 1 05-22-2021 Commemt1 Glu2: Cleaned Meter Normal [facility] Comment on above: Result Comment: PERF ORMED BY: [place] [address] PATHOLOGIST HEEL GUMMER YAMILET BACK M.D. Performed By: #### C K, CKMB, HS TROP #### [facility] [address] Glucose [Mass/Vol] 142 mg/dL Normal [facility] Comment on above: Result Comment: [place] Glucose Reference Range is dependent on time and content of last meal. Glucose of more than 200 mg/dL in a nonstressed, ambulatory subject supports the diagnosis of Diabetes Mellitus. Performed By: #### C K, CKMB, HS TROP #### [facility] [address] [place] [address] [place] Hematocrit Auto (Bld) [Volum e fraction]Ordered By: Juan Pablo Aguilar on 03-21-2022 Hematocrit (Bld) [Volume fraction] 39.2 % 38.8-50.0 [facility] Hemoglobin [Mass/volume] in BloodOrdered By: Juan Pablo Aguilar on 03-21-2022 Hemoglobin (Bld) [Mass/Vol] 12.9 g/dL 13.0-17.0 [facility] Laboratory - Chemistry and C hemistry - challengeOrdered By: Juan Pablo Aguilar on 03-21-2022 Natriuretic peptide B (Bld) [Mass/Vol] 74.0 pg/mL 5-100 [facility] Laboratory - CoagulationOrde red By: Juan Pablo Aguilar on 03-21-2022 PT Coag (PPP) [Time] 11.6 s 9.0-12.9 [facility] Leukocytes [#/volume] correc usama for nucleated erythrocytes in Blood by Automated counOrdered By: Juan Pablo Aguilar on 03-21-2022 WBC corrected for nucl RBC Auto (Bld) [#/Vol] 7.1 10*3/uL 4.1-10.5 [facility] Lymphocytes Auto (Bld) [#/Vo l]Ordered By: Juan Pablo Aguilar on 03-21-2022 Lymphocytes (Bld) [#/Vol] 1.9 10*3/uL 1.00-4.8 [facility] Lymphocytes/100 WBC Auto (Bl d)Ordered By: Juan Pablo Aguilar on 03-21-2022 Lymphocytes/100 WBC (Bld) 26.9 % . [facility] MCH Auto (RBC) [Entitic mass ]Ordered By: Juan Pablo Aguilar on 03-21-2022 MCH (RBC) [Entitic mass] 30.8 pg 27.5-35.2 [facility] MCHC Auto (RBC) [Mass/Vol]Or dered By: Juan Pablo Aguilar on 03-21-2022 MCHC (RBC) [Mass/Vol] 33.0 g/dL 32.5-35.6 [facility] MCV Auto (RBC) [Entitic vol] Ordered By: Juan Pablo Aguilar on 03-21-2022 MCV (RBC) [Entitic vol] 93.4 fL 83.5-101 [facility] Monocyte distribution width [Entitic volume] in Blood by AutomatedOrdered By: Juan Pablo Aguilar on 03-21-2022 Monocyte distribution width Auto (Bld) [Entitic vol] 17.83 % 0.00-20.00 [facility] Monocytes Auto (Bld) [#/Vol] Ordered By: Juan Pablo Aguilar on 03-21-2022 Monocytes (Bld) [#/Vol] 0.8 10*3/uL 0.0-0.8 [facility] Monocytes/100 WBC Auto (Bld) Ordered By: Juan Pablo Aguilar on 03-21-2022 Monocytes/100 WBC (Bld) 11.1 % . [facility] Neutrophils Auto (Bld) [#/Vo l]Ordered By: Juan Pablo Aguilar on 03-21-2022 Neutrophils (Bld) [#/Vol] 4.2 10*3/uL 1.8-7.7 [facility] Neutrophils/100 WBC Auto (Bl d)Ordered By: Juan Pablo Aguilar on 03-21-2022 Neutrophils/100 WBC (Bld) 58.7 % . [facility] No Panel InformationOrdered By: Juan Pablo Aguilar on 03-21-2022 Estimated GFR () > 60 mL/Min [facility] Comment on above: GFR estimated refere nce range: According to KDOQI guidelines, <60 ml/min/1.73m2 is sufficient to diagnose a patient with chronic kidney disease. Pharmacy Creatinine Clearance (Chem 94.11 [facility] Nucleated erythrocytes [Pres ence] in Blood by Automated countOrdered By: Juan Pablo Aguilar on 03-21-2022 Nucleated RBC Auto Ql (Bld) 0.1 /100{WBC} 0-0.5 [facility] Partial Thromboplastin Timeo n 03-21-2022 aPTT Coag (Bld) [Time] 28.5 s Normal 25.1-36.5 [facility] Comment on above: Result Comment: PERF ORMED BY: [facility] [address] [place] [address] PATHOLOGIST HEEL GUMMER YAMILET BACK M.D. Performed By: #### B SPRING COILER HAND, CBC, PT, PTT, BMP, CK, CKMB, HS TROP #### [facility] [address] Platelet mean volume Auto (B ld) [Entitic vol]Ordered By: Juan Pablo Aguilar on 03-21-2022 Platelet mean volume (Bld) [Entitic vol] 7.8 fL 6.6-10.1 [facility] Platelet poor plasma interna tional normalized ratio (INR) by coagulation assay (relatOrdered By: Juan Pablo Aguilar on 03-21-2022 INR Coag (PPP) [Relative time] 1.0 {INR} [facility] Comment on above: INR Therapeutic Rang e [...] 03-21-2022 Platelets (Bld) [#/Vol] 205 10*3/uL 150-450 [facility] Prothrombin Time INRon 03-21 INR Coag (PPP) [Relative time] 1.0 {INR} Normal [facility] Comment on above: Result Comment: INR Therapeutic [...] 3 - 4.5 Performed By: #### B SPRING COILER HAND, CBC, PT, PTT, BMP, CK, CKMB, HS TROP #### [facility] [address] PT Coag (PPP) [Time] 11.6 s Normal 9.0-12.9 [facility] Comment on above: Performed By: #### B SPRING COILER HAND, CBC, PT, PTT, BMP, CK, CKMB, HS TROP #### [facility] [address] RBC Auto (Bld) [#/Vol]Ordere d By: Juan Pablo Aguilar on 03-21-2022 RBC (Bld) [#/Vol] 4.20 10*6/uL 3.90-5.60 [facility] Serum or plasma anion gap de terminationOrdered By: Juan Pablo Aguilar on 03-21-2022 Anion gap [Moles/Vol] 12.7 mmol/L 6.0-15.0 [facility] Serum or plasma calcium rossana urement (mass/volume)Ordered By: Juan Pablo Aguilar on 03-21-2022 Calcium [Mass/Vol] 10.0 mg/dL 8.2-10.2 [facility] Serum or plasma chloride izzy surement (moles/volume)Ordered By: Juan Pablo Aguilar on 03-21-2022 Chloride [Moles/Vol] 104 mmol/L 95-114 [facility] Serum or plasma creatine kin ase MB (CKMB)/total creatine kinase (CK) ratio by calculaOrdered By: Juan Pablo Aguilar on 03-21-2022 CK.MB Calc [Catalytic fraction] 1.9 % 0.00-2.50 [facility] Serum or plasma creatine kin ase MB measurement (mass/volume)Ordered By: Juan Pablo Aguilar on 03-21-2022 CK.MB [Mass/Vol] 3.0 ng/mL 0.6-6.3 [facility] Serum or plasma glucose rossana urement (mass/volume)Ordered By: Juan Pablo Aguilar on 03-21-2022 Glucose [Mass/Vol] 123 mg/dL 70-100 [facility] Comment on above: ADA recommended refe rence rangeRandom Glucose Reference Range is dependent on time and content of last meal. Glucose of more than 200 mg/dL in a nonstressed, ambulatory subject supports the diagnosis of Diabetes Mellitus. Serum or plasma potassium me asurement (moles/volume)Ordered By: Juan Pablo Aguilar on 03-21-2022 Potassium [Moles/Vol] 5.1 mmol/L 3.5-5.1 [facility] Serum or plasma sodium measu rement (moles/volume)Ordered By: Juan Pablo Aguilar on 03-21-2022 Sodium [Moles/Vol] 136 mmol/L 136-146 [facility] Serum or plasma total carbon dioxide measurement (moles/volume)Ordered By: Juan Pablo Aguilar on 03-21-2022 CO2 [Moles/Vol] 24.4 mmol/L 22.0-30.0 [facility] Serum or plasma urea nitroge n measurement (mass/volume)Ordered By: Juan Pablo Aguilar on 03-21-2022 Urea nitrogen [Mass/Vol] 20 mg/dL 9-23 [facility] Troponin I High Sensitivityo n 03-21-2022 Troponin I High Sensitivity 11 pg/mL Normal 0-20 [facility] Comment on above: Result Comment: PERF ORMED BY: [place] [address] PATHOLOGIST HEEL GUMMER YAMILET BACK M.D. Performed By: #### C K, CKMB, HS TROP #### [facility] [address] [place] [address] [place] Troponin I High Sensitivity 11 pg/mL Normal 0-20 [facility] Comment on above: Result Comment: PERF ORMED BY: [facility] [address] [place] [address] PATHOLOGIST HEEL GUMMER YAMILET BACK M.D. Performed By: #### H S TROP #### [facility] [address] [place] [address] Troponin I High Sensitivity 10 pg/mL Normal 0-20 [facility] Comment on above: Result Comment: PERF ORMED BY: [place] [address] PATHOLOGIST HEEL GUMMER YAMILET BACK M.D. Performed By: #### C K, CKMB, HS TROP #### [facility] [address] [place] [address] [place] Troponin I.cardiac [Mass/vol ume] in Serum or Plasma by High sensitivity methodOrdered By: Tyree Husain on 03-21-2022 Troponin I.cardiac High sensitivity method [Mass/Vol] 11 pg/mL 0-20 [facility] WBC Auto (Bld) [#/Vol]Ordere d By: Juan Pablo Aguilar on 03-21-2022 WBC (Bld) [#/Vol] 7.1 10*3/uL 4.1-10.5 [facility] XR chest 2V*on 03-21-2022 XR chest 2V* [facility] Main [address] [address] XRay Report Signed Patient: Tammy Wu MR#: [id number] [birth year] : 1950 Acct:[id number] Age/Sex: 72 / M ADM Date: 03/21/22 [...] Alexei Munoz M.D.03/21/2022 1:03 PM Dictation Location: [place] [address] Transcribed By: [facility] 03/21/22 1303 Dictated By: Alexei Munoz II, MD 03/21/22 130 Signed By: 03/21/22 1303 [facility] Office Visit (Cardiology)on 03-17-2022 Follow-up visit Diagnoses/Problems [...] 45.0-49.9, adult Healthy Weight Tips; Status:Complete; Done: [id number] Some eating tips that can help you lose weight.; Status:Complete; Done: [id number] Patient Instructions Please bring all medicines, vitamins, [...] negative for complaint. Vitals Vital Signs Recorded: [id number] 04:57PMRecorded: [id number] 02:37PM Heart Rate60, R Eeuhbc41, R Radial Myoaraqs763, RUE, Occebvh264, RUE, Sitting Fmonbiucc33, RUE, Byqkfvw35, RUE, Sitting Height5 ft 7 in5 ft 7 in Kiykvv457 lb 310 lb BMI Rqufiiifhp53.55 kg/m248.55 kg/m2 BSA Calculated2.442.44 Tobacco Useb) No PHQ-2 #1. Over the last 2 weeks have you felt down, depressed or hopeless? (If yes, answer PHQ-9 belo (more content not included)... Normal [employer] Tobacco Screening.on Adult depression screening assessment No [facility] [employer] [place] [address] DO Work Phone: Fall risk assessment a) No falls within the last year [facility] [employer] [place] [address] DO Work Phone: Tobacco use status CPHS b) No [facility] [employer] [place] [address] DO Work Phone: XR CHEST 2 [...] JOYA MCRAE Date: 2021-10-20 15:46 Normal [facility] PSA SCREEN (MEDICARE)on 06-02 TPSA 0.380 ng/mL Normal <4.000 [facility] [employer] Comment on above: Result Comment: PSA Test Method: ECLIA/Jose e 601 Performed By: #### P SA #### [facility] [address] [place], [place] [id number] Complete Blood Counton 03-09 Erythrocyte distribution width (RBC) [Ratio] 14.2 % Normal 11.0-15.0 [facility] [employer] Comment on above: Performed By: #### C BC, LIPD, TSH reflex FT4, URIC, CMP #### [facility] [address] [place], [place] [id number] Hematocrit (Bld) [Volume fraction] 40.6 % Normal 38.5-50.0 [facility] [employer] Comment on above: Performed By: #### C BC, LIPD, TSH reflex FT4, URIC, CMP #### [facility] [address] [place], [place] [id number] Hemoglobin (Bld) [Mass/Vol] 13.0 g/dL Normal 13.0-17.1 [facility] Specialist Comment on above: Performed By: #### C BC, LIPD, TSH reflex FT4, URIC, CMP #### [facility] [address] [place], [place] [id number] MCH (RBC) [Entitic mass] 31.1 pg Normal 27.0-33.0 [facility] Specialist Comment on above: Performed By: #### C BC, LIPD, TSH reflex FT4, URIC, CMP #### [facility] [address] [place], [place] [id number] MCHC (RBC) [Mass/Vol] 32.0 g/dL Normal 32.0-36.0 [facility] Comment on above: Performed By: #### C BC, LIPD, TSH reflex FT4, URIC, CMP #### [facility] [address] [place], [place] [id number] MCV (RBC) [Entitic vol] 97 fL Normal 80-100 [facility] Specialist Comment on above: Performed By: #### C BC, LIPD, TSH reflex FT4, URIC, CMP #### [facility] [address] [place], [place] [id number] Platelet mean volume (Bld) [Entitic vol] 9.60 fL Normal 7.50-12.50 [facility] Specialist Comment on above: Performed By: #### C BC, LIPD, TSH reflex FT4, URIC, CMP #### [facility] [address] [place], [place] [id number] Platelets (Bld) [#/Vol] 185 10*3/uL Normal 140-400 [facility] Specialist Comment on above: Performed By: #### C BC, LIPD, TSH reflex FT4, URIC, CMP #### [facility] [address] [place], [place] [id number] RBC (Bld) [#/Vol] 4.18 10*6/uL Low 4.20-5.80 [facility] Comment on above: Performed By: #### C BC, LIPD, TSH reflex FT4, URIC, CMP #### [facility] [address] [place], [place] [id number] RDW-SD 50.9 fL High 37.0-50.0 [facility] [employer] Comment on above: Performed By: #### C BC, LIPD, TSH reflex FT4, URIC, CMP #### [facility] [address] [place], [place] [id number] WBC (Bld) [#/Vol] 5.9 10*3/uL Normal 3.8-11.0 [facility] [place] [employer] Comment on above: Performed By: #### C BC, LIPD, TSH reflex FT4, URIC, CMP #### [facility] [address] [place], [place] [id number] Comprehensive [facility] 03-09-2021 Albumin [Mass/Vol] 4.8 g/dL Normal 3.6-5.1 [facility] [place] [employer] Comment on above: Performed By: #### C BC, LIPD, TSH reflex FT4, URIC, CMP #### [facility] [address] [place], [place] [id number] Albumin/Globulin [Mass ratio] 1.8 {ratio} Normal 1.0-2.5 [facility] [employer] Comment on above: Performed By: #### C BC, LIPD, TSH reflex FT4, URIC, CMP #### [facility] [address] [place], [place] [id number] ALP [Catalytic activity/Vol] 83 U/L Normal 40-129 [facility] [employer] Comment on above: Performed By: #### C BC, LIPD, TSH reflex FT4, URIC, CMP #### [facility] [address] [place], [place] [id number] ALT [Catalytic activity/Vol] 34 U/L Normal 9-46 [facility] [employer] Comment on above: Result Comment: 03/04 Female reference range changed. Performed By: #### C BC, LIPD, TSH reflex FT4, URIC, CMP #### [facility] [address] [place], [place] [id number] Anion gap [Moles/Vol] 17 mmol/L Normal 12-20 [facility] Specialist Comment on above: Result Comment: Effe ctive 04/09/2019 reference range changed. Performed By: #### C BC, LIPD, TSH reflex FT4, URIC, CMP #### [facility] [address] [place], [place] [id number] AST [Catalytic activity/Vol] 22 U/L Normal 10-40 [facility] Comment on above: Performed By: #### C BC, LIPD, TSH reflex FT4, URIC, CMP #### [facility] [address] [place], [place] [id number] Bilirubin [Mass/Vol] 0.51 mg/dL Normal 0.30-1.20 [facility] Comment on above: Performed By: #### C BC, LIPD, TSH reflex FT4, URIC, CMP #### [facility] [address] [place], [place] [id number] BUN/CREA 33 Ratio High 6-22 [facility] Comment on above: Performed By: #### C BC, LIPD, TSH reflex FT4, URIC, CMP #### [facility] [address] [place], [place] [id number] Calcium [Mass/Vol] 10.8 mg/dL High 8.6-10.2 [facility] Comment on above: Performed By: #### C BC, LIPD, TSH reflex FT4, URIC, CMP #### [facility] [address] [place], [place] [id number] Chloride [Moles/Vol] 107 mmol/L Normal 98-107 [facility] Comment on above: Performed By: #### C BC, LIPD, TSH reflex FT4, URIC, CMP #### [facility] [address] [place], [place] [id number] CO2 [Moles/Vol] 23 mmol/L Normal 20-31 [facility] Comment on above: Performed By: #### C BC, LIPD, TSH reflex FT4, URIC, CMP #### [facility] [address] [place], [place] [id number] Creatinine [Mass/Vol] 0.9 mg/dL Normal 0.7-1.4 [facility] Comment on above: Performed By: #### C BC, LIPD, TSH reflex FT4, URIC, CMP #### [facility] [address] [place], [place] [id number] eGFRAA 96 mL/min/1.73m2 Normal >60 [facility] Specialist Comment on above: Performed By: #### C BC, LIPD, TSH reflex FT4, URIC, CMP #### [facility] [address] [place], [place] [id number] eGFRNAA 79 mL/min/1.73m2 Normal >60 [facility] [employer] Comment on above: Performed By: #### C BC, LIPD, TSH reflex FT4, URIC, CMP #### [facility] [address] [place], [place] [id number] Globulin (S) [Mass/Vol] 2.6 g/dL Normal 1.9-3.7 [facility] [employer] Comment on above: Performed By: #### C BC, LIPD, TSH reflex FT4, URIC, CMP #### [facility] [address] [place], [place] [id number] Glucose [Mass/Vol] 89 mg/dL Normal 65-99 [place] [employer] Comment on above: Result Comment: For FASTING Glucose --- ADA reference ranges: Normal 65-99 mg/dl Prediabetes 100-125 Diabetes >/= 126 Performed By: #### C BC, LIPD, TSH reflex FT4, URIC, CMP #### [facility] [address] [place], [place] [id number] Potassium [Moles/Vol] 5.5 mmol/L Normal 3.5-5.5 [facility] Comment on above: Performed By: #### C BC, LIPD, TSH reflex FT4, URIC, CMP #### [facility] [address] [place], [place] [id number] Protein [Mass/Vol] 7.4 g/dL Normal 6.1-8.1 Wilfred [place]era [place] [employer] Comment on above: Performed By: #### C BC, LIPD, TSH reflex FT4, URIC, CMP #### [facility] [address] [place], [place] [id number] Sodium [Moles/Vol] 141 mmol/L Normal 135-146 Wilfred [place]era [place] [employer] Comment on above: Performed By: #### C BC, LIPD, TSH reflex FT4, URIC, CMP #### [facility] [address] [facility] [place] [place] [id number] Urea nitrogen [Mass/Vol] 31 mg/dL High 7-25 [facility] Specialist Comment on above: Performed By: #### C BC, LIPD, TSH reflex FT4, URIC, CMP #### [facility] [address] [place], [place] [id number] Lipid Panelon 03-09-2021 Cholesterol [Mass/Vol] 138 mg/dL Normal 125-200 [facility] Comment on above: Result Comment: Low risk < 200mg/dL Borderline risk 201-239 mg/dl High risk > or equal to 240 Performed By: #### C BC, LIPD, TSH reflex FT4, URIC, CMP #### [facility] [address] [facility] [place] [place] [id number] Cholesterol in HDL [Mass/Vol] 38 mg/dL Low >40 [facility] [employer] Comment on above: Result Comment: High Cardiovascular Risk HDL <40 mg/dL Low Cardiovascular Risk HDL > or equal to 60 mg/dl Performed By: #### C BC, LIPD, TSH reflex FT4, URIC, CMP #### [facility] [address] [place], [place] [id number] Cholesterol in LDL [Mass/Vol] 77 mg/dL Normal [facility] Specialist Comment on above: Result Comment: LDL ATP III CLASSIFICATION LDL less than 100 mg/dl Optimal LDL 100-129 mg/dl Near or above optimal LDL 130-159 Borderline high LDL 160-189 High LDL greater than 189 mg/dl Very High Performed By: #### C BC, LIPD, TSH reflex FT4, URIC, CMP #### [facility] [address] [facility] [place] [id number] Cholesterol in VLDL [Mass/Vol] 23 mg/dL Normal [facility] [employer] Comment on above: Performed By: #### C BC, LIPD, TSH reflex FT4, URIC, CMP #### [facility] [address] [place], [place] [id number] Cholesterol.total/Chol esterol in HDL [Mass ratio] 4 {ratio} Normal [facility] [employer] Comment on above: Performed By: #### C BC, LIPD, TSH reflex FT4, URIC, CMP #### [facility] [address] [place], [place] [id number] Triglyceride [Mass/Vol] 117 mg/dL Normal 30-150 [facility] Specialist Comment on above: Result Comment: TRIG ATPIII CLASSIFICATIONS TRIG less than 150 mg/dl Normal TRIG 150-199 mg/dl Borderline High TRIG 200-500 mg/dl High TRIG greather than 500 mg/dl Very High Performed By: #### C BC, LIPD, TSH reflex FT4, URIC, CMP #### [facility] [address] [place], [place] [id number] TSH w/ Reflex to Free T4on 1 05-10-2020 TSH 1.330 uIU/mL Normal 0.400-4.50 0 [facility] [employer] Comment on above: Performed By: #### C BC, LIPD, TSH reflex FT4, URIC, CMP #### [facility] [address] [place], [place] [id number] Uric Acidon 03-09-2021 URIC 8.1 mg/dL High 4.0-8.0 [facility] Specialist Comment on above: Result Comment: Refe rence range change 02/18/2017. Prior reference range F 2.4-5.7mg/dL. M 3.4-7.0 mg/dL. Performed By: #### C BC, LIPD, TSH reflex FT4, URIC, CMP #### [facility] [address] [place], [place] [id number] [facility] CARDIAC STRESS/REST INJE CTIONon 08-28-2019 [facility] CARDIAC STRESS/REST INJECTION Patient Name: TAMMY WU STUDY: MYOCARDIAL PERFUSION STRESS TEST WITH LEXISCAN Performing facility: [facility], [address] [place] [address], [address], [place] [address] [facility] Provider: Pawan Lion MD, [facility] PCP: Dr. Nico Medina Supervising provider: Norma Olson [facility], [facility] INDICATION: Chest Pain; DAVID; HISTORY: Gender: M; Age: 69 y/o ; Height: 172.72 cm; Weight: 159.5092558 kg. High Cholesterol; Diabetes; Family HX CAD; HTN; Chest Pain; SOB; Fatigue; Dizziness Quit smoking 20 years ago. COMPARISON: No comparison. ACCESSION NUMBER(S): [id number]; [id number]; [id number] ORDERING CLINICIAN: COLIN LION TECHNIQUE: TWO DAY protocol. Stress injection: Date:08/28/2019, [...] available for comparison. Electronically signed by: NORMA OLSON MD Normal [facility] Vital Signs Date Time Vital Sign Value Performing Clinician Facility 11-19-2024 10:40-0400 Body height 172.7 cm Leena MAGALLANES Work Phone: [facility] 11-19-2024 10:40-0400 Body mass index (BMI) [Ratio] 44.7 kg/m2 Leena MAGALLANES Work Phone: [facility] 11-19-2024 10:40-0400 Body weight 133.36 kg Leena MAGALLANES Work Phone: [facility] 11-19-2024 10:40-0400 Diastolic blood pressure 72 mm[Hg] Leena Lopezmer PA Work Phone: [facility] 11-19-2024 10:40-0400 Heart rate 52 /min Leena Hemmer PA Work Phone: [facility] 11-19-2024 10:40-0400 SaO2% (BldA) [Mass fraction] 97 % Leena Lopezmer PA Work Phone: [facility] 11-19-2024 10:40-0400 Systolic blood pressure 138 mm[Hg] Leena Lopezmer PA Work Phone: [facility] 10-12-2024 10:18-0400 Body height 170.2 cm Ro Pendleton MD Work Phone: [facility] 10-12-2024 10:18-0400 Body mass index (BMI) [Ratio] 46.05 kg/m2 Ro Pendleton MD Work Phone: [facility] 10-12-2024 10:18-0400 Body weight 133.36 kg Ro Pendleton MD Work Phone: [facility] 10-12-2024 10:18-0400 Diastolic blood pressure 88 mm[Hg] Ro Pendleton MD Work Phone: [facility] 10-12-2024 10:18-0400 Heart rate 47 /min Ro Pendleton MD Work Phone: [facility] 10-12-2024 10:18-0400 Systolic blood pressure 138 mm[Hg] Ro Pendleton MD Work Phone: [facility] 09-17-2024 09:25-0400 Body height 172.7 cm Kojo Medina MD Work Phone: [facility] 09-17-2024 09:25-0400 Diastolic blood pressure 72 mm[Hg] Kojo Medina MD Work Phone: [facility] 09-17-2024 09:25-0400 Systolic blood pressure 138 mm[Hg] Kojo Medina MD Work Phone: [facility] 08-02-2024 10:10-0400 Body height 172.7 cm Kojo Medina MD Work Phone: [facility] 08-02-2024 10:10-0400 Body mass index (BMI) [Ratio] 45.16 kg/m2 Kojo Medina MD Work Phone: [facility] 08-02-2024 10:10-0400 Body weight 134.72 kg Kojo Medina MD Work Phone: [facility] 08-02-2024 10:10-0400 Diastolic blood pressure 74 mm[Hg] Kojo Medina MD Work Phone: [facility] 08-02-2024 10:10-0400 Heart rate 56 /min Kojo Medina MD Work Phone: [facility] 08-02-2024 10:10-0400 SaO2% (BldA) [Mass fraction] 97 % Kojo Medina MD Work Phone: [facility] 08-02-2024 10:10-0400 Systolic blood pressure 132 mm[Hg] Kojo Medina MD Work Phone: [facility] 03-22-2024 10:11-0500 Body height 172.7 cm Kojo Medina MD Work Phone: [facility] 03-22-2024 10:11-0500 Body mass index (BMI) [Ratio] 46.38 kg/m2 Kojo Medina MD Work Phone: [facility] 03-22-2024 10:11-0500 Body weight 138.35 kg Kojo Medina MD Work Phone: [facility] 03-22-2024 10:11-0500 Diastolic blood pressure 96 mm[Hg] Kojo Medina MD Work Phone: [facility] 03-22-2024 10:11-0500 Heart rate 72 /min Kojo Medina MD Work Phone: [facility] 03-22-2024 10:11-0500 SaO2% (BldA) [Mass fraction] 96 % Kojo Medina MD Work Phone: [facility] 03-22-2024 10:11-0500 Systolic blood pressure 142 mm[Hg] Kojo Medina MD Work Phone: [facility] 02-17-2024 10:53-0500 Body height 172.7 cm Kojo Medina MD Work Phone: [facility] 02-17-2024 10:53-0500 Body mass index (BMI) [Ratio] 48.2 kg/m2 Kojo Medina MD Work Phone: [facility] 02-17-2024 10:53-0500 Body weight 143.79 kg Kojo Medina MD Work Phone: [facility] 02-17-2024 10:53-0500 Diastolic blood pressure 76 mm[Hg] Kojo Medina MD Work Phone: [facility] 02-17-2024 10:53-0500 Heart rate 70 /min Kojo Medina MD Work Phone: [facility] 02-17-2024 10:53-0500 SaO2% (BldA) [Mass fraction] 96 % Kojo Medina MD Work Phone: [facility] 02-17-2024 10:53-0500 Systolic blood pressure 134 mm[Hg] Kojo Medina MD Work Phone: [facility] 02-01-2024 10:35-0400 Body height 172.7 cm Lyudmila Duncan [employer] Work Phone: [facility] 02-01-2024 10:35-0400 Body mass index (BMI) [Ratio] 46.22 kg/m2 Lyudmila Duncan [employer] Work Phone: [facility] 02-01-2024 10:35-0400 Body weight 137.89 kg Lyudmila Duncan [employer] Work Phone: [facility] 02-01-2024 10:35-0400 Diastolic blood pressure 100 mm[Hg] Lyudmila Duncan [employer] Work Phone: [facility] 02-01-2024 10:35-0400 Heart rate 64 /min Lyudmila Minor [employer] Work Phone: [facility] 02-01-2024 10:35-0400 SaO2% (BldA) [Mass fraction] 94 % Lyudmila Ronald [employer] Work Phone: [facility] 02-01-2024 10:35-0400 Systolic blood pressure 162 mm[Hg] Lyudmila Minor [employer] Work Phone: [facility] 01-24-2024 10:25-0400 Body height 172.7 cm Lyudmila Ronald [employer] Work Phone: [facility] 01-24-2024 10:25-0400 Body mass index (BMI) [Ratio] 48.96 kg/m2 Lyudmila Minor [employer] Work Phone: [facility] 01-24-2024 10:25-0400 Body temperature 97.9 [degF] Lyudmila Minor [employer] Work Phone: [facility] 01-24-2024 10:25-0400 Body weight 146.06 kg Lyudmila Minor [employer] Work Phone: [facility] 01-24-2024 10:25-0400 Diastolic blood pressure 58 mm[Hg] Lyudmila Ronald [employer] Work Phone: [facility] 01-24-2024 10:25-0400 Heart rate 63 /min Lyudmila Anayavely [employer] Work Phone: [facility] 01-24-2024 10:25-0400 SaO2% (BldA) [Mass fraction] 91 % Lyudmila Ronald [employer] Work Phone: [facility] 01-24-2024 10:25-0400 Systolic blood pressure 126 mm[Hg] Lyudmila Anayavely [employer] Work Phone: [facility] 01-13-2024 10:33-0400 Diastolic blood pressure 85 mm[Hg] Ro Pendleton MD Work Phone: [facility] 01-13-2024 10:33-0400 Systolic blood pressure 160 mm[Hg] Ro Pendleton MD Work Phone: [facility] 01-13-2024 10:07-0400 Body height 170.2 cm Ro Pendleton MD Work Phone: [facility] 01-13-2024 10:07-0400 Body mass index (BMI) [Ratio] 49.09 kg/m2 Ro Pendleton MD Work Phone: [facility] 01-13-2024 10:07-0400 Body weight 142.16 kg Ro Pendleton MD Work Phone: [facility] 01-13-2024 10:07-0400 Heart rate 60 /min Ro Pendleton MD Work Phone: [facility] 12-21-2023 09:39-0400 Body height 172.7 cm Kojo Medina MD Work Phone: [facility] 12-21-2023 09:39-0400 Body mass index (BMI) [Ratio] 46.68 kg/m2 Kojo Medina MD Work Phone: [facility] 12-21-2023 09:39-0400 Body weight 139.25 kg Kojo Medina MD Work Phone: [facility] 12-21-2023 09:39-0400 Diastolic blood pressure 64 mm[Hg] Kojo Medina MD Work Phone: [facility] 12-21-2023 09:39-0400 Heart rate 90 /min Kojo Medina MD Work Phone: [facility] 12-21-2023 09:39-0400 SaO2% (BldA) [Mass fraction] 94 % Kojo Medina MD Work Phone: [facility] 12-21-2023 09:39-0400 Systolic blood pressure 130 mm[Hg] Kojo Medina MD Work Phone: [facility] 10-10-2023 10:42-0400 Body height 170.2 cm Colin Lion MD Work Phone: [facility] 10-10-2023 10:42-0400 Body mass index (BMI) [Ratio] 48.55 kg/m2 Colin Lion MD Work Phone: [facility] 10-10-2023 10:42-0400 Body weight 140.62 kg Colin Lion MD Work Phone: [facility] 10-10-2023 10:42-0400 Diastolic blood pressure 58 mm[Hg] Colin Lion MD Work Phone: [facility] 10-10-2023 10:42-0400 Heart rate 41 /min Colin Lion MD Work Phone: [facility] 10-10-2023 10:42-0400 Systolic blood pressure 156 mm[Hg] Colin Lion MD Work Phone: [facility] 03-24-2023 07:25-0500 Body temperature 97.7 [degF] Sera Mayen MD Work Phone: [facility] 03-24-2023 07:25-0500 Diastolic blood pressure 75 mm[Hg] Sera Mayen MD Work Phone: [facility] 03-24-2023 07:25-0500 Heart rate 51 /min Sera Mayen MD Work Phone: [facility] 03-24-2023 07:25-0500 Respiratory rate 18 /min Sera Mayen MD Work Phone: [facility] 03-24-2023 07:25-0500 SaO2% (BldA) [Mass fraction] 95 % Sera Mayen MD Work Phone: [facility] 03-24-2023 07:25-0500 Systolic blood pressure 149 mm[Hg] Sera Mayen MD Work Phone: [facility] 03-24-2023 05:49-0500 Body height 170.2 cm Sera Mayen MD Work Phone: [facility] 03-24-2023 05:49-0500 Body mass index (BMI) [Ratio] 46.23 kg/m2 Sera Mayen MD Work Phone: [facility] 03-24-2023 05:49-0500 Body weight 133.9 kg Sera Mayen MD Work Phone: [facility] 09-08-2022 10:06-0400 Body height 170.18 cm Kojo Medina [facility] Phone[facility] [employer] [facility] Work Phone: 09-08-2022 10:06-0400 Body mass index (BMI) [Ratio] 46.52 kg/m2 Kojo Medina Work Phone: [facility] [employer] 600 DO Work Phone: 09-08-2022 10:06-0400 Body surface area Derived from formula 2.39 m2 Kojo Medina Work Phone[facility] [employer] 600 DO Work Phone: 09-08-2022 10:06-0400 Body weight 134.72 kg Kojo Medina Work Phone: [facility] 600 DO Work Phone: 09-08-2022 10:06-0400 Diastolic blood pressure 70 mm[Hg] Kojo Medina Work Phone: [facility] [address] DO Work Phone: 09-08-2022 10:06-0400 Heart rate 40 /min Kojo Medina Work Phone: [facility] 600 DO Work Phone: 09-08-2022 10:06-0400 Systolic blood pressure 120 mm[Hg] Kojo Medina Work Phone: [facility] [address] DO Work Phone: 07-15-2022 11:00-0400 Body height 172.72 cm [employer] Other [facility] [employer] Other 07-15-2022 11:00-0400 Body mass index (BMI) [Ratio] 45 kg/m2 [employer] Other [facility] [employer] Other 07-15-2022 11:00-0400 Body weight 134.27 kg [employer] Other [facility] [employer] Other 07-15-2022 11:00-0400 Diastolic blood pressure 86 mm[Hg] [employer] Other [facility] [employer] Other 07-15-2022 11:00-0400 Systolic blood pressure 132 mm[Hg] [employer] Other [facility] [employer] Other 06-21-2022 11:00-0400 Body height 172.72 cm [employer] Other [facility] [employer] Other 06-21-2022 11:00-0400 Body mass index (BMI) [Ratio] 45 kg/m2 [employer] Other [facility] [employer] Other 06-21-2022 11:00-0400 Body weight 134.27 kg [employer] Other [facility] [employer] Other 06-21-2022 11:00-0400 Diastolic blood pressure 68 mm[Hg] [employer] Other [facility] [employer] Other 06-21-2022 11:00-0400 Systolic blood pressure 168 mm[Hg] [employer] Other [facility] [employer] Other 03-22-2022 12:00-0500 Diastolic blood pressure 69 mm[Hg] II Kojo Medina Work Phone: [facility] 03-22-2022 12:00-0500 Heart rate 57 /min II Kojo Medina Work Phone: [facility] 03-22-2022 12:00-0500 Respiratory rate 18 /min II Kojo Medina Work Phone: [facility] 03-22-2022 12:00-0500 SaO2% (BldA) [Mass fraction] 94 % II Kojo Medina Work Phone: [facility] 03-22-2022 12:00-0500 Systolic blood pressure 126 mm[Hg] II Kojo Medina Work Phone: [facility] 03-22-2022 08:00-0500 Body temperature 97.6 [degF] II Kojo Medina Work Phone: [facility] 03-22-2022 06:00-0500 Body weight 137.4 kg II Kojo Medina Work Phone: [facility] 03-21-2022 20:19-0500 Body height 170.18 cm II Kojo Medina Work Phone: [facility] 03-21-2022 18:26-0500 Diastolic blood pressure 84 mm[Hg] II Kojo Medina Work Phone: [facility] 03-21-2022 18:26-0500 Heart rate 81 /min II Kojo Medina Work Phone: [facility] 03-21-2022 18:26-0500 Respiratory rate 18 /min II Kojo Medina Work Phone: [facility] 03-21-2022 18:26-0500 SaO2% (BldA) [Mass fraction] 95 % II Kojo Medina Work Phone: [facility] 03-21-2022 18:26-0500 Systolic blood pressure 190 mm[Hg] II Kojo Medina Work Phone: [facility] 03-21-2022 11:45-0500 Body height 170.18 cm II Kojo Medina Work Phone: [facility] 03-21-2022 11:45-0500 Body weight 140 kg II Kojo Medina Work Phone: [facility] 03-21-2022 11:42-0500 Body temperature 98.1 [degF] II Kojo Medina Work Phone: [facility] 03-17-2022 16:57-0500 Body height 170.18 cm Colin Lion MD Work Phone: [facility] 250 DO Work Phone: 03-17-2022 16:57-0500 Body mass index (BMI) [Ratio] 48.55 kg/m2 Colin Lion MD Work Phone: [facility] 250 DO Work Phone: 03-17-2022 16:57-0500 Body surface area Derived from formula 2.44 m2 Colin Lion MD Work Phone: [facility] 250 DO Work Phone: 03-17-2022 16:57-0500 Body weight 140.62 kg Colin Lion MD Work Phone: [facility] 250 DO Work Phone: 03-17-2022 16:57-0500 Diastolic blood pressure 60 mm[Hg] Colin Lion MD Work Phone: [facility] [address] DO Work Phone: 03-17-2022 16:57-0500 Heart rate 60 /min Colin Lion MD Work Phone: [facility] 250 DO Work Phone: 03-17-2022 16:57-0500 Systolic blood pressure 138 mm[Hg] Colin Lion MD Work Phone: [facility] 250 DO Work Phone: 03-17-2022 14:37-0500 Body height 170.18 cm Colin Lion MD Work Phone: [facility] 250 DO Work Phone: 03-17-2022 14:37-0500 Body mass index (BMI) [Ratio] 48.55 kg/m2 Colin Lion MD Work Phone: [facility] 250 DO Work Phone: 03-17-2022 14:37-0500 Body surface area Derived from formula 2.44 m2 Colin Lion MD Work Phone: [facility] 250 DO Work Phone: 03-17-2022 14:37-0500 Body weight 140.62 kg Colin Lion MD Work Phone: [facility] 250 DO Work Phone: 03-17-2022 14:37-0500 Diastolic blood pressure 68 mm[Hg] Colin Lion MD Work Phone: [facility] 250 DO Work Phone: 03-17-2022 14:37-0500 Heart rate 60 /min Colin Lion MD Work Phone: [facility] 250 DO Work Phone: 03-17-2022 14:37-0500 Systolic blood pressure 148 mm[Hg] Colin Lion MD Work Phone: [facility] [address] DO Work Phone: 07-10-2021 11:09-0400 Blood Pressure Location Rajeev PATRICE [facility] 07-10-2021 11:09-0400 Diastolic blood pressure 70 mm[Hg] Rajeev IBRAHIM [facility] 07-10-2021 11:09-0400 Heart rate 88 /min Rajeev IBRAHIM [facility] 07-10-2021 11:09-0400 Respiratory rate 16 /min Rajeevcinthya IBRAHIM [facility] 07-10-2021 11:09-0400 Systolic blood pressure 120 mm[Hg] Rajeev IBRAHIM [facility] Encounters Encounter Date Encounter Type Care Provider Facility Start: 02-18-2025 ambulatory Rajeev Bostoni ty:ERICA Hyman Start: 11-19-2024 End: 11-19-2024 Bamboo flowschantelle MAGALLANES Work Phone: [facility] Start: 11-19-2024 End: 11-19-2024 Bamboo flowschantelle MAGALLANES Work Phone: [facility] Start: 11-19-2024 End: 11-19-2024 Office outpatient visit 25 minutes Leena MAGALLANES Work Phone: [facility] Comment on above: Benign essential hyp ertension (Primary Dx); Type 2 diabetes mellitus with other specified complication, with long-term current use of insulin (HCC); Morbidly obese (CMS-HCC); BMI 40.0-44.9, adult ([facility]-HCC) Start: 11-19-2024 End: 11-19-2024 ambulatory LEENA ARMENTA Not Available Start: 11-14-2024 End: 11-14-2024 ambulatory Rajeev R PATRICE Facility: [facility] Start: 11-14-2024 End: 11-14-2024 Patient encounter procedure Rajeev IBRAHIM [facility] Start: 10-12-2024 End: 10-12-2024 Office outpatient visit 25 minutes Ro Pendleton MD Work Phone: [facility] Comment on above: Essential (primary) hypertension (Primary Dx); White coat syndrome with hypertension; Sinus bradycardia; Junctional rhythm; Mixed hyperlipidemia; BMI 45.0-49.9, adult (Multi); Former smoker Start: 10-12-2024 End: 10-12-2024 ambulatory [facility] Start: 09-17-2024 End: 09-17-2024 Bamboo flowsheet Kojo Medina MD Work Phone: [facility] Start: 09-17-2024 End: 09-17-2024 Bamboo flowsheet Kojo Medina MD Work Phone: [facility] Start: 09-17-2024 End: 09-17-2024 Assay of hemosiderin, quant Kojo Medina MD Work Phone: [facility] Work Phone: Start: 09-17-2024 End: 09-17-2024 Patient encounter procedure Kojo Medina MD Work Phone: [facility] Comment on above: Routine general medi sanna examination at health care facility (Primary Dx); ACP (advance care planning); Type 2 diabetes mellitus with other specified complication, with long-term current use of insulin (HCC); Morbidly obese (CMS-HCC); Mixed hyperlipidemia ; Benign essential hypertension ; Statin intolerance Start: 09-17-2024 End: 09-17-2024 ambulatory KOJO MEDINA Not Available Start: 08-02-2024 End: 08-02-2024 Bamboo flowsheet Kojo Medina MD Work Phone: [facility] Start: 08-02-2024 End: 08-02-2024 Bamboo flowsheet Kojo Medina MD Work Phone: [facility] Start: 08-02-2024 End: 08-02-2024 Office outpatient visit 25 minutes Kojo Medina MD Work Phone: [facility] Comment on above: Type 2 diabetes carina itus with other specified complication, with long-term current use of insulin (Primary Dx); Encounter for screening for malignant neoplasm of colon; OAB (overactive bladder); Tinea inguinalis; Morbid (severe) obesity due to excess calories ([facility]); Body mass index (BMI) 45.0-49.9, adult (CMS/HCC) Start: 08-02-2024 End: 08-02-2024 ambulatory KOJO MEDINA Not Available Start: 07-17-2024 End: 07-17-2024 [facility] [facility] Work Phone: [facility] Start: 07-17-2024 End: 07-17-2024 [facility]amboo [facility]sheet [facility] Start: 07-17-2024 End: 07-17-2024 Office outpatient new [facility] Work Phone: [facility] Comment on above: Solares angioma (Prim natalie Dx); Actinic keratosis; Seborrheic keratosis; Melanocytic nevus of trunk; Lentigo simplex Start: 07-17-2024 End: 07-17-2024 ambulatory [facility] Start: 03-22-2024 End: 03-22-2024 Bamboo flowsheet Kojo Medina MD Work Phone: [facility] Start: 03-22-2024 End: 03-22-2024 Bamboo flowsheet Kojo Medina MD Work Phone: [facility] Start: 03-22-2024 End: 03-22-2024 Office outpatient visit 15 minutes Kojo Medina MD Work Phone: [facility] Comment on above: Benign essential hyp ertension (CMS/HCC) (Primary Dx); Type 2 diabetes mellitus with other specified complication, with long-term current use of insulin (CMS/HCC) Start: 03-22-2024 End: 03-22-2024 ambulatory KOJO MEDINA Not Available Start: 02-17-2024 End: 02-17-2024 Bamboo flowsheet Kojo Medina MD Work Phone: [facility] Start: 02-17-2024 End: 02-17-2024 Bamboo flowsheet Kojo Medina MD Work Phone: [facility] Start: 02-17-2024 End: 02-17-2024 Assay of hemosiderin, quant Kojo Medina MD Work Phone: [facility] Work Phone: Start: 02-17-2024 End: 02-17-2024 Patient encounter procedure Kojo Medina MD Work Phone: [facility] Comment on above: Routine general medi sanna examination at [facility] care facility (Primary Dx); ACP (advance care planning); Type 2 diabetes mellitus with other specified complication, with long-term current use of insulin (CMS/HCC); Type 2 diabetes mellitus with hyperglycemia (CMS/HCC); 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CMS/HCC) Start: 02-17-2024 End: 02-17-2024 ambulatory KOJO MEDINA Not Available Start: 02-01-2024 End: 02-01-2024 Bamboo flowsheet Lyudmila Duncan [employer] Work Phone: [facility] Start: 02-01-2024 End: 02-01-2024 Bamboo flowsheet Lyudmila Duncan [employer] Work Phone: [facility] Start: 02-01-2024 End: 02-01-2024 Office outpatient visit 25 minutes Lyudmila Duncan [employer] Work Phone: [facility] Comment on above: Type 2 diabetes carina itus without complication, with long-term current use of insulin (CMS/HCC) (Primary Dx); Benign essential hypertension (CMS/HCC); Prostate cancer screening; Fatty liver; BPH with urinary obstruction; Mixed hyperlipidemia (CMS/HCC); Body mass index (BMI) 45.0-49.9, adult (CMS/HCC); Screening for thyroid disorder; Elevated brain natriuretic peptide (BNP) level Start: 02-01-2024 End: 02-01-2024 ambulatory LYUDMILA DUNCAN Not Available Start: 01-25-2024 End: 01-25-2024 Orders Only Lyudmila Duncan [employer] Work Phone: [facility] Comment on above: Elevated brain natri uretic peptide (BNP) level (Primary Dx) Start: 01-24-2024 End: 01-24-2024 Bamboo flowsheet Lyudmila Duncan [employer] Work Phone: [facility] Start: 01-24-2024 End: 01-24-2024 Bamboo flowsheet Lyudmila Duncan [employer] Work Phone: [facility] Start: 01-24-2024 End: 01-24-2024 Office outpatient visit 25 minutes Lyudmila Duncan [employer] Work Phone: [facility] Comment on above: Shortness of breath (Primary Dx); Wheezing; First degree atrioventricular block; Pulse irregularity; Acute non-recurrent pansinusitis; Insomnia, unspecified type Start: 01-24-2024 End: 01-24-2024 ambulatory LYUDMILA DUNCAN Not Available Start: 01-13-2024 End: 01-13-2024 Office outpatient visit 25 minutes Ro Pendleton MD Work Phone: [facility] Comment on above: Benign essential hyp ertension (Primary Dx); Mixed hyperlipidemia; BMI 45.0-49.9, adult ([facility]); Sinus bradycardia; Former smoker; White coat syndrome with hypertension Start: 01-13-2024 End: 01-13-2024 ambulatory [facility] Ambulatory Start: 12-21-2023 End: 12-21-2023 Bamboo flowsheet Kojo Medina MD Work Phone: [facility] Start: 12-21-2023 End: 12-21-2023 Bamboo flowsheet Kojo Medina MD Work Phone: [facility] Start: 12-21-2023 End: 12-21-2023 Office outpatient visit 25 minutes Kojo Medina MD Work Phone: [facility] Comment on above: Type 2 diabetes carina itus with other specified complication, with long-term current use of insulin ([facility]) (Primary Dx); Mixed hyperlipidemia ([facility]); Upper respiratory tract infection, unspecified type; Type 2 diabetes mellitus with hyperglycemia ([facility]); 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[facility]) Start: 12-21-2023 End: 12-21-2023 ambulatory KOJO MEDINA Not Available Start: 10-10-2023 End: 10-10-2023 Office outpatient visit 25 minutes Colin Lion MD Work Phone: [facility] Comment on above: Mixed hyperlipidemia (Primary Dx); Benign essential hypertension; Bradycardia Start: 08-02-2023 End: 08-03-2023 Pre-admission assessment TAMMY MEDINA [facility] Start: 07-22-2023 End: 07-22-2023 Patient encounter procedure Rajeev IBRAHIM [facility] Start: 03-24-2023 End: 03-24-2023 ambulatory [facility] Start: 03-24-2023 End: 03-24-2023 Subsequent hospital visit by physician Sera Mayen MD Work Phone: [facility] [place] Comment on above: Carpal tunnel syndro me, right upper limb (Primary Dx) Start: 03-21-2023 End: 03-22-2023 ambulatory SERA [facility] Start: 03-21-2023 End: 03-21-2023 Office outpatient new 45 minutes Sera Mayen MD Work Phone: [facility] Comment on above: Carpal tunnel syndro me of right wrist (Primary Dx) Start: 09-08-2022 Office outpatient vi sit 15 minutes Kojo Medina Work Phone: [facility] 600 DO Work Phone: Start: 09-08-[address] Kojo Medina II Facility: Start: 08-24-2022 ambulatory NARENDRANATH LAKSHMIPATHY . Facility:H1 Start: 08-14-2022 End: 08-15-[address] KOJO MEDINA Facility:[facility]1 Start: 08-12-2022 End: 08-13-2022 ambulatory NARENDRANATH LAKSHMIPATHY . Facility:H1 Start: 07-20-2022 End: 07-20-2022 ambulatory NARENDRANATH LAKSHMIPATHY . Facility:H1 Start: 07-15-2022 End: 07-15-2022 ambulatory Karime Caraballo Other [facility] [email or web address] Other Start: 07-15-2022 Office outpatient vi sit 15 minutes Karime Rashmi [facility] [place] Start: 07-08-2022 End: 07-09-2022 ambulatory NARENDRANATH LAKSHMIPATHY . Facility:[facility]1 Start: 07-02-2022 End: 07-03-[address] TAMMY DANIELLE Facility:H1 Start: 06-21-2022 End: 06-21-2022 ambulatory Karime Caraballo Other [facility] [email or web address] Other Start: 06-21-2022 Office outpatient ne w 45 minutes Karime Rashmi [facility] [place] Start: 06-15-2022 End: 06-16-2022 ambulatory JOYA MCRAE Facility:H1 Start: 05-04-2022 End: 05-05-[address] AGUILAR SWEENEY . Facility:H1 Start: 04-30-2022 End: 05-01-[address] KOJO MEDINA Facility:H1 Start: 03-22-[address] Kojo Medina II Facility:[id number] Start: 03-21-2022 End: 03-22-2022 ambulatory Jakub Juliana Facility:[facility] Start: 03-21-2022 End: 03-22-2022 Evaluation and management of inpatient II Kojo Medina Work Phone: [facility] Start: 03-21-2022 End: 03-22-2022 observation encounter II Kojo Medina Work Phone: [facility] Work Phone: Start: 03-17-2022 Office outpatient vi sit 25 minutes Colin Lion MD Work Phone: [facility] 250 DO Work Phone: Start: 03-17-[address] Kojo Medina II Facility: Start: 10-19-2021 End: 10-20-[address] KOJO MEDINA Facility: Start: 07-10-2021 End: 07-10-2021 Patient encounter procedure Rajeev IBRAHIM [facility] Procedures Date Procedure Procedure Detail Performing Clinician Start: 11-19-2024 Hemoglobin glycosylated a1c Leena MAGALLANES Work Phone: Start: 10-12-2024 Ecg routine ecg w/le ast 12 lds w/i&r Ro Pendleton MD Work Phone: Start: 09-17-2024 Hemoglobin glycosylated a1c Kojo Medina MD Work Phone: Start: 08-02-2024 Hemoglobin glycosylated a1c Kojo Medina MD Work Phone: Start: 07-17-2024 CRYOTHERAPY SKIN LESION Panda MAGALLANES Work Phone: Start: 03-22-2024 Hemoglobin glycosylated a1c Kojo Medina MD Work Phone: Start: 02-17-2024 Hemoglobin glycosylated a1c Kojo Medina MD Work Phone: Start: 01-13-2024 Ecg routine ecg w/le ast 12 lds w/i&r Moeddief Traboulssi MD Work Phone: Start: 12-21-2023 Hemoglobin glycosylated a1c Kojo Medina MD Work Phone: Start: 10-10-2023 Ecg routine ecg w/le ast 12 lds w/i&r Colin Lion MD Work Phone: Start: 03-24-2023 DISCHARGE PATIENT SERA MAYEN Start: 03-24-2023 FULL CODE SERA MAYEN Start: 03-24-2023 PLACE IN OUTPATIENT/ HOSPITAL AMBULATORY SURGERY SERA MAYEN Start: 03-21-2022 Plain chest X-ray II Iban Medina Work Phone: Start: 10-07-2015 Cystoscopy Rajeev [facility] Start: 07-29-2014 Colonoscopy Colin Stewart MD Work Phone: Start: 09-18-2012 Cystoscopy Rajeev [facility] Start: 08-07-2010 Cystoscopy Rajeev [facility] Start: 09-02-2002 Transrectal biopsy o f prostate using ultrasound guidance Rajeev IBRAHIM Achillotomy Colin Lion MD Work Phone: Arthroplasty of knee Colin Lion MD Work Phone: Colonoscopy Colin Lion MD Work Phone: Comment on above: [id number]; History of hernia repair Megan IBRAHIM Operation on lens Rajeev [place] [facility] Repair of musculoten dinous cuff of shoulder Colin Lion MD Work Phone: Surgical procedure on thorax Colin Lion MD Work Phone: Total replacement of hip Jose Lion MD Work Phone: Total replacement of right hip joint Rajeev IBRAHIM Plan of Treatment Date Care Activity Detail Author Start: 01-16-2026 Glaucoma screening Diabetes: Retinopathy Screening [facility] Start: 09-17-2025 Medicare Annual Wellness (AWV) Medicare Annual Wellness (AWV) [facility] Start: 08-09-2025 End: 08-09-2025 Patient encounter procedure 08/09/2025 10:50 AM EDT Office Visit [facility] [address] [place] [id number] Ro Pendleton MD [address] [place] [address] [facility] Start: 07-17-2025 End: 07-17-2025 Patient encounter procedure [facility] Start: 02-19-2025 Hemoglobin A1c measurement Diabetes: Hemoglobin A1C [facility] Start: 02-17-2025 Medicare Annual Wellness Visit Medicare Annual Wellness Visit (AWV) [facility] Start: 02-16-2025 Medicare Annual Wellness (AWV) Medicare Annual Wellness (AWV) [facility] Start: 01-31-2025 Urine screening for protein Diabetes: Urine Protein Screening [facility] Start: 01-12-2025 End: 10-12-2025 Alanine aminotransferase [Enzymatic activity/volume] in Serum or Plasma by With P-5'-P Alanine Aminotransferase Lab Routine Mixed hyperlipidemia Expected: 01/12/2025, Expires: 10/12/2025 [facility] Work Phone: Comment on above: Expected: 01/12/2025, Expires: Start: 01-12-2025 End: 10-12-2025 Aspartate aminotransferase [Enzymatic activity/volume] in Serum or Plasma by With P-5'-P Aspartate Aminotransferase Lab Routine Mixed hyperlipidemia Expected: 01/12/2025, Expires: 10/12/2025 [facility] Service Area Work Phone: Comment on above: Expected: 01/12/2025, Expires: Start: 01-12-2025 End: 10-12-2025 Lipid 1996 panel - Serum or Plasma Lipid Panel Lab Routine Mixed hyperlipidemia Expected: 01/12/2025, Expires: 10/12/2025 [facility] Work Phone: Comment on above: Expected: 01/12/2025, Expires: Start: 12-20-2024 End: 12-20-2024 Patient encounter procedure 12/20/2024 9:30 AM EDT Office Visit [facility] [address] [place] [address] Leena Armenta PA [address] [place] [address] [facility] Start: 12-18-2024 Hemoglobin A1c measurement Diabetes: Hemoglobin A1C [facility] Start: 12-16-2024 Glaucoma screening Diabetes: Retinopathy Screening [facility] Start: 12-03-2024 Influenza vaccination [facility] Start: 11-19-2024 End: 11-19-2024 Patient encounter procedure [facility] Comment on above: Arrived Start: 11-02-2024 Hemoglobin A1c measurement Diabetes: Hemoglobin A1C [facility] Start: 10-12-2024 End: 10-12-2024 Patient encounter procedure 10/12/2024 10:20 AM EDT Office Visit [facility] [address] [facility] [address] [place] [address] Ro Pendleton MD [address] [facility] [address] [place] [address] [facility] Start: 09-17-2024 End: 09-17-2024 Patient encounter procedure [facility] Comment on above: Arrived Start: 08-02-2024 End: 08-02-2025 Noninvasive colorectal cancer DNA and occult blood screening [Presence] in Stool Cologuard colon cancer screening Lab Routine Encounter for screening for malignant neoplasm of colon Expected: 08/02/2024 (Approximate), Expires: 08/02/2025 [facility] Work Phone: Comment on above: Expected: 08/02/2024 (Approximate), Expi res: 08/02/2025 Start: 08-02-2024 End: 08-02-2024 Patient encounter procedure [facility] Comment on above: Arrived Start: 07-29-2024 Screening for malignant neoplasm of colon [facility] Start: 07-24-2024 Urine screening for protein Diabetes: Urine Protein Screening [facility] Start: 07-17-2024 End: 07-17-2024 Patient encounter procedure [facility] Comment on above: Arrived Start: 06-20-2024 Hemoglobin A1c measurement Diabetes: Hemoglobin A1C [facility] Start: 05-19-2024 Hemoglobin A1c measurement Diabetes: Hemoglobin A1C [facility] Start: 03-22-2024 End: 03-22-2024 Patient encounter procedure [facility] Comment on above: Arrived Start: 03-21-2024 Hemoglobin A1c measurement Diabetes: Hemoglobin A1C [facility] Start: 02-22-2024 End: 02-22-2024 Patient encounter procedure [facility] Start: 02-01-2024 End: 01-31-2025 CBC panel - Blood by Automated count CBC Lab Routine Type 2 diabetes mellitus without complication, with long-term current use of insulin (CMS/HCC) Benign essential hypertension (CMS/HCC) Expected: 02/01/2024 (Approximate), Expires: 01/31/2025 [facility] Comment on above: Expected: 02/01/2024 (Approximate), Expi res: 01/31/2025 Start: 02-01-2024 End: 01-31-2025 Comprehensive metabolic 2000 panel - Serum or Plasma Comprehensive metabolic panel Lab Routine Type 2 diabetes mellitus without complication, with long-term current use of insulin (CMS/HCC) Benign essential hypertension (CMS/HCC) BPH with urinary obstruction Expected: 02/01/2024 (Approximate), Expires: 01/31/2025 [facility] Work Phone: Comment on above: Expected: 02/01/2024 (Approximate), Expi res: 01/31/2025 Start: 02-01-2024 End: 01-31-2025 Lipid 1996 panel - Serum or Plasma Lipid panel Lab Routine Mixed hyperlipidemia (CMS/HCC) Expected: 02/01/2024 (Approximate), Expires: 01/31/2025 [facility] Comment on above: Expected: 02/01/2024 (Approximate), Expi res: 01/31/2025 Start: 02-01-2024 End: 01-31-2025 Prostate specific Ag [Mass/volume] in Serum or Plasma PSA Lab Routine Prostate cancer screening Expected: 02/01/2024 (Approximate), Expires: 01/31/2025 [facility] Comment on above: Expected: 02/01/2024 (Approximate), Expi res: 01/31/2025 Start: 02-01-2024 End: 01-31-2025 TSH W/REFLEX TO FT4 TSH W/REFLEX TO FT4 Lab Routine Body mass index (BMI) 45.0-49.9, adult (CMS/HCC) Screening for thyroid disorder Expected: 02/01/2024 (Approximate), Expires: 01/31/2025 [facility] Comment on above: Expected: 02/01/2024 (Approximate), Expi res: 01/31/2025 Start: 02-01-2024 End: 02-01-2024 Patient encounter procedure 02/01/2024 10:30 AM EDT Office Visit [facility] DAUGHERTY [address] [facility] [address] [place] [phone] Lyudmila Duncan [employer] [address] [facility] [address] [place] [address] Arrived UKLW[facility] DAUGHERTY Comment on above: Arrived Start: 01-24-2024 End: 01-23-2025 Natriuretic peptide B [Mass/volume] in Blood B-type natriuretic peptide Lab Routine Shortness of breath Wheezing First degree atrioventricular block Pulse irregularity Expected: 01/24/2024 (Approximate), Expires: 01/23/2025 [facility] Comment on above: Expected: 01/24/2024 (Approximate), Expi res: 01/23/2025 Start: 01-24-2024 End: 01-23-2025 XR Chest 2 Views XR chest 2 views Imaging Routine Shortness of breath Wheezing Expected: 01/24/2024, Expires: 01/23/2025 [facility] Work Phone: Comment on above: Expected: 01/24/2024, Expires: Start: 01-24-2024 End: 01-24-2024 Patient encounter procedure 01/24/2024 10:30 AM EDT Office Visit [facility] [address] [place] [address] Lyudmila Duncan NP [address] [place] [address] Arrived [facility] Comment on above: Arrived Start: 01-21-2024 Medicare Annual Wellness (AWV) Medicare Annual Wellness (AWV) [facility] Start: 01-19-2024 Hemoglobin A1c measurement Diabetes: Hemoglobin A1C [facility] Start: 01-13-2024 End: 01-13-2024 Patient encounter procedure 01/13/2024 10:10 AM EDT Office Visit [facility] [address] [place] [address] Ro Pendleton MD [address] [facility] [address] [place] [address] [facility] Start: 12-21-2023 End: 12-21-2023 Patient encounter procedure 12/21/2023 9:45 AM EDT Office Visit [facility] [address] [place] [address] Kojo Medina MD [address] [place] [address] Arrived [facility] Comment on above: Arrived Start: 12-04-2023 COVID-19 Vaccine () COVID-19 Vaccine ( season) [facility] Start: 12-04-2023 COVID-19 Vaccine ( season) COVID-19 Vaccine ( season) [facility] Start: 12-04-2023 Influenza vaccination Influenza Vaccine (#1) [facility] Start: 09-07-2023 FUV, Provider: Colin Lion, Status: Pen, Time: 9:50 AM FUV, Provider: Colin Lion, Status: Pen, Time: 9:50 AM [facility] 600 DO Work Phone: Start: 09-07-2023 End: 09-07-2023 Patient encounter procedure 09/07/2023 9:50 AM EDT Office Visit [place] [address] [place] [address] Colin Lion MD [address] [facility] [address] [place] [address] [facility] Start: 05-21-2023 COVID-19 Vaccine () COVID-19 Vaccine () [facility] Start: 04-08-2023 End: 04-08-2023 Patient encounter procedure 04/08/2023 11:15 AM EST Office Visit [facility] [address] [place] [address] Sera Oswald MD [address] [facility], [address] [place] [id number] [facility] Start: 03-15-2023 COVID-19 Vaccine (4 - Moderna series) COVID-19 Vaccine (4 - Moderna series) [facility] Start: 12-15-2022 Glaucoma screening Diabetes: Retinopathy Screening [facility] Start: 09-08-2022 FUV, Provider: Colin Lion, Status: Pen, Time: 9:50 AM FUV, Provider: Colin Lion, Status: Pen, Time: 9:50 AM [facility] 250 DO Work Phone: Start: 04-07-2022 NURSEVST, Provider: DEREK GATES ESTIMATOR PROJECT MANAGER 1,[id number], Status: Pen, Time: 1:30 PM NURSEVST, Provider: DEREK GATES ESTIMATOR PROJECT MANAGER 1,[id number], Status: Pen, Time: 1:30 PM [facility] Work Phone: Start: 03-22-2022 [facility] Start: 03-21-2022 Referral to cd storage and materials make up helper [facility] Start: 03-21-2022 Hospital admission [facility] Start: 2015 Abdominal aortic aneurysm screening Abdominal Aortic Aneurysm (AAA) Screening [facility] Start: 2010 Hepatitis B Vaccines (1 of 3 - Risk 3-dose series) Hepatitis B Vaccines (1 of 3 - Risk 3-dose series) [facility] Start: 2010 RSV High Risk: (Elderly (60+) or Population) (1 - Risk 60-74 years 1-dose series) RSV High Risk: (Elderly (60+) or Population) (1 - Risk 60-74 years 1-dose series) [facility] Start: 2010 RSV patients and/or patients aged 60+ years (1 - 1-dose 60+ series) RSV patients and/or patients aged 60+ years (1 - 1-dose 60+ series) [facility] Start: 1972 DTaP/Tdap/Td Vaccines (1 - Tdap) DTaP/Tdap/Td Vaccines (1 - Tdap) [facility] Start: 1969 Hepatitis A Vaccines (1 of 2 - Risk 2-dose series) Hepatitis A Vaccines (1 of 2 - Risk 2-dose series) [facility] Start: 1968 Hepatitis C screening Hepatitis C Screening [facility] Start: 1960 Diabetic foot examination Diabetes: Foot Exam [facility] Start: 1960 Glaucoma screening Diabetes: Retinopathy Screening [facility] Start: 1950 Hemoglobin A1c measurement Diabetes: Hemoglobin A1C [facility] Start: 1950 Lipid panel Lipid Panel [facility] Start: 1950 Medicare Annual Wellness Visit Medicare Annual Wellness Visit (AWV) [facility] Start: 1950 Screening for malignant neoplasm of colon [facility] Microalbumin/Creatin ine panel in random Urine Microalbumin / creatinine urine ratio Lab Routine Type 2 diabetes mellitus with other specified complication, with long-term current use of insulin (HCC) Ordered: 11/19/2024 [facility] Work Phone: Comment on above: Ordered: 11/19/2024 Patient referral [facility] Work Phone: Immunizations Immunization Date Immunization Notes Care Provider [employer] 02-04-2023 influenza virus vaccine, unspecified formulation Colin Lion MD Work Phone: [facility] Work Phone: 01-18-2023 influenza, seasonal, injectable Kojo Medina MD Work Phone: [facility] 01-18-2023 Influenza, Seasonal, Quadrivalent, Adjuvanted Colin Lion MD Work Phone: [facility] Work Phone: 01-18-2023 Pfizer COVID-19 vaccine, Fall 2022, 12 years and older, (30mcg/0.3mL) Colin Lion MD Work Phone: [facility] Work Phone: 01-18-2023 influenza virus vaccine, unspecified formulation Kojo Medina MD Work Phone: [facility] 01-23-2022 influenza, high dose seasonal, preservative-free Colin Lion MD Work Phone: [facility] Work Phone: 01-22-2022 Fluad Quadrivalent 0 .5 ML Intramuscular Prefilled Syringe Colin Lion MD Work Phone: [facility] 250 DO Work Phone: 01-22-2022 influenza virus vaccine, unspecified formulation Rajeev IBRAHIM [facility] 12-21-2021 zoster vaccine recombinant Colin Lion MD Work Phone: [facility] 250 DO Work Phone: 03-12-2021 Fluad Quadrivalent 0 .5 ML Intramuscular Prefilled Syringe Colin Lion MD Work Phone: [facility] 250 DO Work Phone: 03-12-2021 influenza virus vaccine, unspecified formulation Rajeev IBRAHIM [facility] 02-09-2021 Moderna COVID-19 Vaccine 100 MCG/0.5ML Intramuscular Suspension Colin Lion MD Work Phone: [facility] 02-02-2021 SARS-CoV-2 (COVID-19 ) Ad26 vaccine, recombinant Rajeev IBRAHIM [facility] 12-02-2020 zoster vaccine recombinant Colin Lion MD Work Phone: [place] [address] DO Work Phone: 06-26-2020 Moderna COVID-19 Vaccine 100 MCG/0.5ML Intramuscular Suspension Colin Lion MD Work Phone: [facility] 06-02-2020 SARS-CoV-2 (COVID-19 ) Ad26 vaccine, recombinant Rajeev IBRAHIM [facility] 05-29-2020 Moderna COVID-19 Vaccine 100 MCG/0.5ML Intramuscular Suspension Colin Lion MD Work Phone: [facility] 05-05-2020 SARS-CoV-2 (COVID-19 ) Ad26 vaccine, recombinant Rajeev IBRAHIM [facility] 01-03-2020 influenza virus vaccine, unspecified formulation Colin Lion MD Work Phone: [facility] 250 DO Work Phone: 01-03-2020 influenza, seasonal, injectable Colin Lion MD Work Phone: [facility] Work Phone: 02-19-2019 influenza virus vaccine, unspecified formulation Rajeev IBRAHIM [facility] 02-19-2019 influenza, high dose seasonal, preservative-free Colin Lion MD Work Phone: [facility] 250 DO Work Phone: 01-02-2019 influenza virus vaccine, unspecified formulation Colin Lion MD Work Phone: [facility] 01-02-2019 influenza, injectabl e, quadrivalent, preservative free Colin Lion MD Work Phone: [facility] Work Phone: 01-02-2019 influenza, seasonal, injectable Ro Pendleton MD Work Phone: [facility] Work Phone: 01-25-2018 Flu vaccine, quadrivalent, high-dose, preservative free, age 65y+ (FLUZONE) Colin Lion MD Work Phone: [facility] Work Phone: 01-25-2018 influenza virus vaccine, unspecified formulation Rajeev IBRAHIM [facility] 01-25-2018 influenza, high dose seasonal, preservative-free Colin Lion MD Work Phone: [facility] 03-29-2017 influenza virus vaccine, unspecified formulation Rajeev IBRAHIM [facility] 03-29-2017 seasonal influenza, intradermal, preservative free Colin Lion MD Work Phone: [facility] 04-04-2016 pneumococcal conjuga te vaccine, 13 valent Colin Lion MD Work Phone: [facility] 250 DO Work Phone: 01-27-2016 influenza virus vaccine, unspecified formulation Rajeev IBRAHIM [facility] 01-27-2016 influenza, injectabl e, quadrivalent, contains preservative Colin Lion MD Work Phone: [facility] 250 DO Work Phone: 01-27-2016 influenza, injectabl e, quadrivalent, preservative free Colin Lion MD Work Phone: [facility] Work Phone: 01-07-2016 pneumococcal polysaccharide vaccine, 23 valsherri Lion MD Work Phone: [facility] Work Phone: 07-29-2015 pneumococcal polysaccharide vaccine, 23 valsherri Lion MD Work Phone: [facility] Work Phone: 04-18-2013 seasonal influenza, intradermal, preservative free Colin Lion MD Work Phone: [facility] Work Phone: Payers Date Payer Category Payer Self-pay 2021 Medicaid [employer] MEDICARE A DVANTAGE [id number] 2021 Medicare [id number] 2021 Medicare (Managed Care) BHANU COOK MEDICARE [id number] 1959 Private Health Insurance [id number] 1950 Unknown [id number] 2.16.840.1.616348.3.579.2. 593 1950 Unknown [id number] 2.16.840.1.199227.3.579.2. 593 1950 Unknown [id number] 2.16.840.1.661174.3.579.2. 593 1950 Unknown [id number] 2.16.840.1.122100.3.579.2. 593 1950 Unknown [id number] 2.16.840.1.284305.3.579.2. 593 1950 Unknown [id number] 2.16.840.1.421899.3.579.2. 593 1950 Unknown [id number] 2.16.840.1.276863.3.579.2. 593 1950 Unknown [id number] 2.16.840.1.013539.3.579.2. 593 1950 Unknown [id number] 2.16.840.1.700294.3.579.2. 593 1950 Unknown [id number] 2.16.840.1.519537.3.579.2. 593 1950 Unknown [id number] 2.16.840.1.969947.3.579.2. 593 1950 Unknown [id number] 2.16.840.1.878802.3.579.2. 356 1950 Unknown [id number] 2.16.840.1.774026.3.579.2. 356 1950 Unknown [id number] 2.16.840.1.972580.3.579.2. 356 1950 Unknown [id number] 2.16.840.1.118142.3.579.2. 1246 1950 Unknown [id number] 2.16.840.1.575603.3.579.2. 1246 1950 Unknown [id number] 2.16.840.1.451157.3.579.2. 1244 1950 Unknown [id number] 2.16.840.1.381933.3.579.2. 1244 1950 Unknown [id number] 2.16.840.1.219991.3.579.2. 727 1950 Unknown [id number] 2.16.840.1.075478.3.579.2. 727 1950 Unknown [id number] 2.16.840.1.854528.3.579.2. 1259 1950 Unknown [id number] 2.16.840.1.923463.3.579.2. 1259 1950 Unknown [id number] 2.16.840.1.099037.3.579.2. 1259 1950 Unknown [id number] 2.16.840.1.372230.3.579.2. 1259 1950 Unknown [id number] 2.16.840.1.678789.3.579.2. 1259 1950 Unknown [id number] 2.16.840.1.626669.3.579.2. 1259 1950 Unknown [id number] 2.16.840.1.017916.3.579.2. 1259 1950 Unknown [id number] 2.16.840.1.313945.3.579.2. 1259 1950 Unknown [id number] 2.16.840.1.884700.3.579.2. 1259 Unknown [employer] Unknown [facility] [id number] Unknown [id number] 2.16.840.1.266352.3.579.2. 531 Social History Date Type Detail Facility Start: 07-10-2021 End: 11-19-2024 Tobacco smoking status Ex-smoker (finding) [facility] Tobacco smoking status Never [facility] Start: 03-24-2023 End: 12-14-2023 Sex Assigned At Male [facility] Start: 03-22-2023 End: 12-14-2023 Daily caffeine consumption, 1 serving a day Daily caffeine consumption, 1 serving a day [facility] Comment on above: 2-3 drinks a month; quit smoking 20+year s ago; Start: 1950 Sex Assigned At Male [facility] consumption unknown [facility] Work Phone: Start: 1950 Sex Assigned At Not on file [facility] Work Phone: Start: 03-11-2023 End: 10-10-2023 Exposure to SARS-CoV-2 (event) Not sure [facility] Start: 04-04-1964 End: 04-04-1999 History of tobacco use Current smoker [facility] Work Phone: Start: 04-04-1964 End: 04-04-1999 History of tobacco use Cigarette Smoker [facility] Work Phone: Start: 03-22-2023 End: 10-10-2023 Tobacco use and exposure Smokeless tobacco non-user [facility] Work Phone: Start: 03-24-2023 End: 11-19-2024 Alcohol intake Current drinker of alcohol (finding) [facility] Work Phone: Within the last year , have you been afraid of your partner or ex-partner? No [facility] Do you belong to any clubs or organizations such as adventist groups, unions, fraternal or athletic groups, or school groups? Yes [facility] Are you now , , , , never or living with a partner? [facility] How often to you hav e a drink containing alcohol? 2-4 times a month [facility] How many standard dr inks containing alcohol do you have on a typical day? 1 or 2 [facility] How often do you hav e 6 or more drinks on 1 occasion? Less than monthly [facility] How hard is it for y ou to pay for the very basics like food, housing, medical care, and heating Not very hard [facility] Do you feel stress - tense, restless, nervous, or anxious, or unable to sleep at night because your mind is troubled all the time - these days [OSQ] Not at all [facility] (I/We) worried ju er (my/our) food would run out before (I/we) got money to buy more. Never true [facility] Start: 09-01-2022 Tobacco Comment Last smoked: >10 yea rs [facility] Start: 02-01-2024 End: 11-19-2024 Tobacco use and exposure Former smokeless tobacco user [facility] End: 04-04-1989 History of tobacco use Snuff User [facility] End: 04-04-1989 History of tobacco use Chews Tobacco [facility] Start: 02-01-2024 End: 11-19-2024 Alcoholic beverage intake Ex-drinker (finding) [facility] How often do you nee d to have someone help you when you read instructions, pamphlets, or other written material from your doctor or pharmacy [SILS] Never [facility] Start: 10-12-2024 Alcohol Comment 1 beer a month [facility] Work Phone: Sexual Orientation [facility] Start: 08-09-2017 Sex Male (finding) [facility] Medical Equipment Procedure Code Equipment Code Equipment Original Text Equipment Identifier Dates [id number] Start: 07-01-2022 End: 09-17-2024 USE 1 SUBCUTANEO USLY TWICE DAILY [id number] Start: 09-01-2023 USE 1 SYRINGE TW ICE DAILY [id number] Start: 04-11-2024 Goals Date Patient Goal Desired Activity /State Functional Status Date Assessment Result Facility 11-19-2024 Patient Health Quest ionnaire 2 item (PHQ-2) [Reported] [facility] 08-02-2024 Patient Health Quest ionnaire 2 item (PHQ-2) [Reported] [facility] 03-22-2022 Functional status Patient at Baseline [facility] Work Phone: Mental Status Date Assessment Result Facility 03-22-2022 Cognitive function Cognitive Sta tus Patient at Baseline [facility] Work Phone: Clinical Notes 07-10-2021 to 11-19-2024 ELPIDIO Oro - 11/19/2024 11:00 AM Kasey Pendleton MD - 10/12/2024 10:20 AM EDTPatient InstructionsAttachDaphne Medina MD - 09/17/2024 9:30 AM EDTPatient Instructions Note Date & Type Note Facility 11-19-2024 History of Present illness Narrative Images from the original note were not included. Subjective Patient ID: Tammy Wu is a 74 y.o. male who presents for Diabetes. Diabetes Mellitus Patient presents for follow up of diabetes. Current symptoms include: none. Patient denies foot ulcerations, hypoglycemia , nausea, paresthesia of the feet, polydipsia, polyuria, visual disturbances, and vomiting. Evaluation to date has included: fasting blood sugar, fasting lipid panel, hemoglobin A1C, and microalbuminuria. Home sugars: patient does not check sugars. He was using CGM but stopped using it because his sugars were running 275-375 Pt did not see desizing pad operator he notes he does not need to see one Pt is going to call and sched to see a [facility] in [place] that treats his brother for diabetes and has his well controlled Does not eat breakfast, not much for lunch, and admits eats too much at dinner. Admits his partner, who is also a diabetic, she is not cooking to watch the [employer]. Drinks 6 bottles of water a day. Over the past 2 weeks, how often have you been bothered by any of the following problems? Little interest or pleasure in doing things: Not at all Feeling down, depressed, or hopeless: Not at all Patient Health Questionnaire-2 Score: 0 Current Outpatient Medications on File Prior to Visit Medication Sig Dispense Refill amLODIPine (Norvasc) 10 MG tablet Take 10 mg by mouth Daily Continuous Glucose Import Dispatcher (FreeStyle Radha 3 [place]) device USE DIRECTED 1 each 0 Continuous Glucose Sensor (FreeStyle Radha 3 Sensor) [facility] Apply 1 patch topically every 14 (fourteen) days 2 each 11 cyclobenzaprine (Flexeril) 10 MG tablet Take 1 tablet (10 mg) by mouth every 8 (eight) hours if needed for muscle spasms 60 tablet 2 insulin NPH-insulin regular (NovoLIN 70/30) (70-30) 100 UNIT/ML injection Inject 30 Units under the skin in the morning and 30 Units in the evening. Inject before meals. Insulin Syringe-Needle U-100 (BD Veo Insulin Syringe U/F) 31G X 15/64 1 ML mis USE 1 SYRINGE TWICE DAILY 200 each 3 metFORMIN (Glucophage) 500 MG tablet Take 1 tablet (500 mg) by mouth in the morning and 1 tablet (500 mg) in the evening. Take with meals. 60 tablet 11 mirabegron ER (Myrbetriq) 50 MG 24 hr tablet Take 50 mg by mouth Daily pravastatin (Pravachol) 20 MG tablet Take 20 mg by mouth in the morning. sildenafil (Viagra) 50 MG tablet TAKE 1 TABLET BY MOUTH ONCE DAILY NEEDED 30 tablet 0 spironolactone (Aldactone) 25 MG tablet Take 25 mg by mouth Daily triamterene-hydrochlorothiazide (Maxzide-25) 37.5-25 MG tablet TAKE 1 TABLET BY MOUTH ONCE DAILY IN THE MORNING 100 tablet 3 [DISCONTINUED] carvedilol (Coreg) 3.125 MG tablet Take 3.125 mg by mouth in the morning and 3.125 mg in the evening. Take with meals. [DISCONTINUED] carvedilol (Coreg) 6.25 MG tablet Take 1 tablet (6.25 mg) by mouth in the morning and 1 tablet (6.25 mg) in the evening. Take with meals. 180 tablet 3 [DISCONTINUED] Ozempic, 0.25 or 0.5 MG/DOSE, 2 MG/3ML solution pen-injector Inject 0.5 mg under the skin every 7 (seven) days [DISCONTINUED] oxybutynin (Ditropan) 5 MG tablet Take 1 tablet (5 mg) by mouth in the morning and 1 tablet (5 mg) before bedtime. 60 tablet 5 No current facility-administered medications on file prior to visit. I have reviewed and reconciled the history and medication list with the patient today. Allergies Allergen Reactions Tetanus Toxoid, Adsorbed Other Social History Tobacco Use Smoking status: Former Current packs/day: 0.00 Average packs/day: 2.0 packs/day for 35.0 years (70.0 ttl pk-yrs) Types: Cigarettes Start date: 04/04/1964 Quit date: 2000 Years since quittin.6 Smokeless tobacco: Former Types: Snuff, Chew Quit date: 04/04/1989 Tobacco comments: Last smoked: >10 years Substance Use Topics Alcohol use: Yes Alcohol/week: 2.0 standard drinks of alcohol Types: 2 Cans of beer per week Drug use: Not Currently Family History Problem Relation Name Age of Onset Hypertension Mother Naty Diabetes Mother Naty Hyperlipidemia Mother Naty Cancer Mother Naty Heart attack Father Samy Diabetes Father Samy Heart disease Father Samy Hypertension Father Samy Hypertension Sibling Diabetes Sibling Past Medical History: Diagnosis Date Arthritis Benign prostatic hyperplasia Carpal tunnel syndrome 09/01/2022 Diabetes mellitus, type 2 (HCC) Disc displacement 1984 Diverticulosis 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 HL (hearing loss) Hyperlipidemia Hypertension Internal hemorrhoids Mild depression 09/01/2022 Obesity 1998 Past Surgical History: Procedure Laterality Date ACHILLES TENDON SURGERY 1987 APPENDECTOMY BIOPSY Biopsy of prostate COLONOSCOPY 2015 HERNIA REPAIR Left JOINT REPLACEMENT 2003 LAMINECTOMY 1984,02/2014 OTHER SURGICAL HISTORY 2009 Right RCR OTHER SURGICAL HISTORY Bilateral L2-L5 Nerve Blocks 11/21/18, 05/01/2019 OTHER SURGICAL HISTORY Left L2-L5 RFA 06/12/2019, Rt L2-L5 RFA 06/19/2019 OTHER SURGICAL HISTORY 07/20/2022 Lt L4-S1 Facet Injections PARTIAL KNEE ARTHROPLASTY Left 2002 CT TOTAL HIP ARTHROPLASTY Right 10/16/2014 SPINE SURGERY 1998 Visit Vitals BP 138/72 Pulse 52 Ht 5' 8 Wt 294 lb SpO2 97% BMI 44.70 kg/m Smoking Status Former BSA 2.53 m Review of Systems Constitutional: Negative for chills, fatigue and fever. Respiratory: Negative for cough, shortness of breath and wheezing. Cardiovascular: Negative for chest pain, palpitations and leg swelling. Gastrointestinal: Negative for abdominal pain, constipation, diarrhea, nausea and vomiting. Skin: Negative for rash. Objective Physical Exam Constitutional: General: He is not in acute distress. Appearance: He is obese. HENT: Head: Normocephalic and atraumatic. Eyes: General: No scleral icterus. Cardiovascular: Rate and Rhythm: Normal rate and regular rhythm. Heart sounds: No murmur heard. Pulmonary: Effort: Pulmonary effort is normal. No respiratory distress. Breath sounds: Normal breath sounds. No wheezing, rhonchi or rales. Musculoskeletal: Right lower leg: Edema present. Left lower leg: Edema present. Skin: General: Skin is warm and dry. Neurological: General: No focal deficit present. Mental Status: He is alert and oriented to person, place, and time. Psychiatric: Mood and Affect: Mood normal. Behavior: Behavior normal. Office Visit on 11/19/2024 Component Date Value Ref Range Status Hemoglobin A1C 11/19/2024 11 Final Assessment/Plan Diagnoses and all orders for this visit: Benign essential hypertension Patient's blood pressure is currently stable. Continue with current medications. Goal BP remains less than 130/80. Pt does follow with Cardiology. Type 2 diabetes mellitus with other specified complication, with long-term current use of insulin (HCC) - POCT Glycated hemoglobin, total - semaglutide (Ozempic, 1 MG/DOSE,) 4 MG/3ML solution pen-injector; Inject 1 mg under the skin 1 (one) time per week - Farxiga 10 MG; Take 1 tablet (10 mg) by mouth Daily - Microalbumin / creatinine urine ratio Will have patient increase the Ozempic to 1 mg weekly. Will also start pt on Farxiga once a day, reviewed potential benefits and mechanism of action, encouraged pt to review package insert for s/s to watch for as far as potential s/e. Will see how his glucose readings are in one month. If no improvement with Faxiga and Ozempic would plan to change to Mounjaro. Regarding following with a specialist, advised pt that the goal is for him to be healthy and achieve good control of his glucose readings. Advised provider is comfortable with pt seeing whomever can help him. He would like to try to see the [facility] first that his brother sees, and if not, will contact office if he would like a referral to Dr. Pleitez. He agrees to monitor his glucose readings, likely will use a glucometer. Encouraged pt to eat at least something small after his morning insulin dosage as not eating after taking meal time insulin can result in hypoglycemia. Best if both doses are taken before a meal. Good discussion with pt today regarding glycemic control. Morbidly obese ([facility]) Encouraged pt to work on portion control for his dinners, and to add in some sort of small protein based snacks during the day. Limit simple sugars. BMI 40.0-44.9, adult ([facility]) Patient has lost 3 pounds since his last appointment. Encouraged continued gradual weight loss. Follow up in about 4 weeks (around 12/17/2024) for Diabetes. documented in this encounter [facility] 11-14-2024 Hospital Discharge instructions Patient Education 11/14/2024 09:05:15 Overactive Bladder, Adult Overactive Bladder, Adult Overactive bladder is a condition in which a person has a sudden and frequent need to urinate. A person might also leak urine if he or she cannot get to the bathroom fast enough (urinary incontinence). Sometimes, symptoms can interfere with work or social activities. What are the causes? Overactive bladder is associated with poor nerve signals between your bladder and your brain. Your bladder may get the signal to empty before it is full. You may also have very sensitive muscles that make your bladder squeeze too soon. This condition may also be caused by other factors, such as: Medical conditions: ?Urinary tract infection. ?Infection of nearby tissues. ?Prostate enlargement. ?Bladder stones, inflammation, or tumors. ?Diabetes. ?Muscle or nerve weakness, especially from these conditions: ?A spinal cord injury. ?Stroke. ?Multiple sclerosis. ?Parkinson's disease. Other causes: ?Surgery on the uterus or urethra. ?Drinking too much caffeine or alcohol. ?Certain medicines, especially those that eliminate extra fluid in the body (diuretics). ?Constipation. What increases the risk? You may be at greater risk for overactive bladder if you: Are an older adult. Smoke. Are going through menopause. Have prostate problems. Have a neurological disease, such as stroke, dementia, Parkinson's disease, or multiple sclerosis (MS). Eat or drink alcohol, spicy food, caffeine, and other things that irritate the bladder. Are overweight or obese. What are the signs or symptoms? Symptoms of this condition include a sudden, strong urge to urinate. Other symptoms include: Leaking urine. Urinating 8 or more times a day. Waking up to urinate 2 or more times overnight. How is this diagnosed? This condition may be diagnosed based on: Your symptoms and medical history. A physical exam. Blood or urine tests to check for possible causes, such as infection. You may also need to see a health care provider who specializes in urinary tract problems. This is called a urologist. How is this treated? Treatment for overactive bladder depends on the cause of your condition and whether it is mild or severe. Treatment may include: Bladder training, such as: ?Learning to control the urge to urinate by following a schedule to urinate at regular intervals. ?Doing Kegel exercises to strengthen the pelvic floor muscles that support your bladder. Special devices, such as: ?Biofeedback. This uses sensors to help you become aware of your body's signals. ?Electrical stimulation. This uses electrodes placed inside the body (implanted) or outside the body. These electrodes send gentle pulses of electricity to strengthen the nerves or muscles that control the bladder. ?Women may use a plastic device, called a pessary, that fits into the vagina and supports the bladder. Medicines, such as: ?Antibiotics to treat bladder infection. ?Antispasmodics to stop the bladder from releasing urine at the wrong time. ?Tricyclic antidepressants to relax bladder muscles. ?Injections of botulinum toxin type A directly into the bladder tissue to relax bladder muscles. Surgery, such as: ?A device may be implanted to help manage the nerve signals that control urination. ?An electrode may be implanted to stimulate electrical signals in the bladder. ?A procedure may be done to change the shape of the bladder. This is done only in very severe cases. Follow these instructions at home: Eating and drinking Make diet or lifestyle changes recommended by your health care provider. These may include: ?Drinking fluids throughout the day and not only with meals. ?Cutting down on caffeine or alcohol. ?Eating a healthy and balanced diet to prevent constipation. This may include: ?Choosing foods that are high in fiber, such as beans, whole grains, and fresh fruits and vegetables. ?Limiting foods that are high in fat and processed sugars, such as fried and sweet foods. Lifestyle Lose weight if needed. Do not use any products that contain nicotine or tobacco. These include cigarettes, chewing tobacco, and vaping devices, such as e-cigarettes. If you need help quitting, ask your health care provider. General instructions Take jifq-wvp-knkdaib and prescription medicines only as told by your health care provider. If you were prescribed an antibiotic medicine, take it as told by your health care provider. Do not stop taking the antibiotic even if you start to feel better. Use any implants or pessary as told by your health care provider. If needed, wear pads to absorb urine leakage. Keep a log to track how much and when you drink, and when you need to urinate. This will help your health care provider monitor your condition. Keep all follow-up visits. This is important. Contact a health care provider if: You have a fever or chills. Your symptoms do not get better with treatment. Your pain and discomfort get worse. You have more frequent urges to urinate. Get help right away if: You are not able to control your bladder. Summary Overactive bladder refers to a condition in which a person has a sudden and frequent need to urinate. Several conditions may lead to an overactive bladder. Treatment for overactive bladder depends on the cause and severity of your condition. Making lifestyle changes, doing Kegel exercises, keeping a log, and taking medicines can help with this condition. This information is not intended to replace advice given to you by your health care provider. Make sure you discuss any questions you have with your health care provider. Document Revised: 12/08/2020 Document Reviewed: 12/08/2020 [employer] Patient Education 2023 [employer]. Follow Up Care 11/07/2024 10:54:53 With:PATRICE SOTELO, Rajeev John, URL Address: [address] [place] [phone] When: Unknown Comments:4 mos (new med) [facility] 11-14-2024 Note Patient Education Obstetrics and Gynecology Overactive Bladder, Adult Overactive bladder is a condition in which a person has a sudden and frequent need to urinate. A person might also leak urine if he or she cannot get to the bathroom fast enough (urinary incontinence). Sometimes, symptoms can interfere with work or social activities. What are the causes? Overactive bladder is associated with poor nerve signals between your bladder and your brain. Your bladder may get the signal to empty before it is full. You may also have very sensitive muscles that make your bladder squeeze too soon. This condition may also be caused by other factors, such as: ??? Medical conditions: ? Urinary tract infection. ? Infection of nearby tissues. ? Prostate enlargement. ? Bladder stones, inflammation, or tumors. ? Diabetes. ? Muscle or nerve weakness, especially from these conditions: ? A spinal cord injury. ? Stroke. ? Multiple sclerosis. ? Parkinson's disease. ??? Other causes: ? Surgery on the uterus or urethra. ? Drinking too much caffeine or alcohol. ? Certain medicines, especially those that eliminate extra fluid in the body (diuretics). ? Constipation. What increases the risk? You may be at greater risk for overactive bladder if you: ??? Are an older adult. ??? Smoke. ??? Are going through menopause. ??? Have prostate problems. ??? Have a neurological disease, such as stroke, dementia, Parkinson's disease, or multiple sclerosis (MS). ??? Eat or drink alcohol, spicy food, caffeine, and other things that irritate the bladder. ??? Are overweight or obese. What are the signs or symptoms? Symptoms of this condition include a sudden, strong urge to urinate. Other symptoms include: ??? Leaking urine. ??? Urinating 8 or more times a day. ??? Waking up to urinate 2 or more times overnight. How is this diagnosed? This condition may be diagnosed based on: ??? Your symptoms and medical history. ??? A physical exam. ??? Blood or urine tests to check for possible causes, such as infection. You may also need to see a health care provider who specializes in urinary tract problems. This is called a urologist. How is this treated? Treatment for overactive bladder depends on the cause of your condition and whether it is mild or severe. Treatment may include: ??? Bladder training, such as: ? Learning to control the urge to urinate by following a schedule to urinate at regular intervals. ? Doing Kegel exercises to strengthen the pelvic floor muscles that support your bladder. ??? Special devices, such as: ? Biofeedback. This uses sensors to help you become aware of your body's signals. ? Electrical stimulation. This uses electrodes placed inside the body (implanted) or outside the body. These electrodes send gentle pulses of electricity to strengthen the nerves or muscles that control the bladder. ? Women may use a plastic device, called a pessary, that fits into the vagina and supports the bladder. ??? Medicines, such as: ? Antibiotics to treat bladder infection. ? Antispasmodics to stop the bladder from releasing urine at the wrong time. ? Tricyclic antidepressants to relax bladder muscles. ? Injections of botulinum toxin type A directly into the bladder tissue to relax bladder muscles. ??? Surgery, such as: ? A device may be implanted to help manage the nerve signals that control urination. ? An electrode may be implanted to stimulate electrical signals in the bladder. ? A procedure may be done to change the shape of the bladder. This is done only in very severe cases. Follow these instructions at home: Eating and drinking ??? Make diet or lifestyle changes recommended by your health care provider. These may include: ? Drinking fluids throughout the day and not only with meals. ? Cutting down on caffeine or alcohol. ? Eating a healthy and balanced diet to prevent constipation. This may include: ? Choosing foods that are high in fiber, such as beans, whole grains, and fresh fruits and vegetables. ? Limiting foods that are high in fat and processed sugars, such as fried and sweet foods. Lifestyle ??? Lose weight if needed. ??? Do not use any products that contain nicotine or tobacco. These include cigarettes, chewing tobacco, and vaping devices, such as e-cigarettes. If you need help quitting, ask your health care provider. General instructions ??? Take [id number] and prescription medicines only as told by your health care provider. ??? If you were prescribed an antibiotic medicine, take it as told by your health care provider. Do not stop taking the antibiotic even if you start to feel better. ??? Use any implants or pessary as told by your health care provider. ??? If needed, wear pads to absorb urine leakage. ??? Keep a log to track how much and when you drink, and whe (more content not included)... [facility] 10-12-2024 History of Present illness Narrative Chief Complaint Patient presents with Follow-up 9 month Follow up for Hypertension Subjective Tammy Wu is a 74 y.o. male HPI Patient is here for follow-up continue management for history of essential hypertension, sinus bradycardia obesity and hyperlipidemia. Since last time I saw him he denies any cardiac complaint of chest pain, palpitation, lightheadedness, dizziness or syncope. He reports his blood pressure has been running in the normal range but heart rate remains a little bit slow. Today with the EKG his heart rate is 47. The patient also reports he stopped taking his a atorvastatin due to myalgia and slightly elevated liver function test. Assessment 1. Essential hypertension with major white coat hypertension. Patient reports his blood pressure controlled at home he is on Coreg and amlodipine 2. Sinus bradycardia and junctional rhythm due to beta-ofelia we reduced his Coreg in the past but remained bradycardic 3. Morbid obesity with BMI of 46 4. Diabetes mellitus he reports reasonable controlled 5. Hyperlipidemia off Lipitor due to myalgia and elevation of his liver function test Plan 1. I advised the patient to cut down his Coreg to 3.125 twice daily. I advised him to continue to monitor blood pressure and heart rate. Would consider down the road adding AB inhibitor or ARB concerning his diabetic 2. I reviewed his recent lab work 3. I discussed with him risk factor modification and I suggested starting pravastatin 20 mg daily and to repeat his lab work as ordered 4. I encouraged him to consider treatment with Ozempic or Mounjaro considering the beneficial impact on weight 5. I will see him back in 6-month and follow-up Review of Systems All other systems reviewed and are negative. Vitals: 10/12/24 1018 BP: 138/88 BP Location: Left arm Patient Position: Sitting Pulse: (!) 47 Weight: 133 kg (294 lb) Height: 1.702 m (5' 7 ) EKG done in office today Objective Physical Exam Constitutional: Appearance: Normal appearance. HENT: Nose: Nose normal. Neck: Vascular: No carotid bruit. Cardiovascular: Rate and Rhythm: Bradycardia present. Pulses: Normal pulses. Heart sounds: Normal heart [...] Judgment: Judgment normal. Allergies Animal dander and Atorvastatin Current Medications Current Outpatient Medications Medication Instructions amLODIPine (NORVASC) 10 mg, oral, Daily carvedilol (COREG) 3.125 mg, oral, 2 times daily (morning and late afternoon) cholecalciferol (VITAMIN D3) 25 mcg, Daily cyclobenzaprine (FLEXERIL) 10 mg, Every 8 hours PRN ibuprofen 400 mg, Every 6 hours PRN insulin NPH and regular human (NovoLIN 70/30 U-100 Insulin) 100 unit/mL (70-30) injection 65 Units, 2 times daily before meals multivitamin tablet 1 tablet, Daily oxyBUTYnin (DITROPAN) 5 mg, 2 times daily Ozempic 0.5 mg, Once Weekly pravastatin (PRAVACHOL) 20 mg, oral, Daily spironolactone (ALDACTONE) 25 mg, oral, Daily triamterene-hydrochlorothiazid (Maxzide-25) 37.5-25 mg tablet 1 tablet, Daily Assessment/Plan 1. White coat syndrome with hypertension Follow Up In Cardiology 2. Essential (primary) hypertension Follow Up In Cardiology carvedilol (Coreg) 3.125 mg tablet 3. Sinus bradycardia ECG 12 Lead 4. Junctional rhythm ECG 12 Lead 5. Mixed hyperlipidemia pravastatin (Pravachol) 20 mg tablet Aspartate Aminotransferase Alanine Aminotransferase Lipid Panel Aspartate Aminotransferase Alanine Aminotransferase Lipid Panel 6. BMI 45.0-49.9, adult (Multi) 7. Former smoker Scribe Attestation By signing my name below, I, Crys To LPN , Scribe attest that this documentation has been prepared under the direction and in the presence of Ro Pendleton MD. Provider Attestation - Scribe documentation All medical record entries made by the Scribe were at my direction and personally dictated by me. I have reviewed the chart and agree that the record accurately reflects my personal performance of the history, physical exam, discussion and plan. documented in this encounter [facility] Work Phone: 10-12-2024 Instructions Crys Gil LPN - 10/12/2024 10:20 AM EDT Please bring all medicines, vitamins, and herbal supplements with you when you come to the office. Prescriptions will not be filled unless you are compliant with your follow up appointments or have a follow up appointment scheduled as per instruction of your physician. Refills should be requested at the time of your visit. BMI was above normal measurement. Current weight: 133 kg (294 lb) Weight change since last visit (-) denotes wt loss -19.4 lbs Weight loss needed to achieve BMI 25: 134.7 Lbs Weight loss needed to achieve BMI 30: 102.9 Lbs Provided instructions on dietary changes Provided instructions on exercise. The following attachments cannot be sent through Care Everywhere.Heart Healthy Diet (Mauritanian)documented in this encounter [facility] Work Phone: 09-17-2024 History of Present illness Narrative Images from the original note were not included. Subjective : Chief Complaint: Tammy Wu is an 74 y.o. male here for an annual wellness visit. I have reviewed and reconciled the history and medication list with the patient today. Current Outpatient Medications Medication Sig Dispense Refill amLODIPine (Norvasc) 10 MG tablet Take 10 mg by mouth Daily carvedilol (Coreg) 6.25 MG tablet Take 1 tablet (6.25 mg) by mouth in the morning and 1 tablet (6.25 mg) in the evening. Take with meals. 180 tablet 3 Continuous Glucose Import Dispatcher (FreeStyle Radha 3 [place]) device USE DIRECTED 1 each 0 Continuous Glucose Sensor (FreeStyle Radha 3 Sensor) misc Apply 1 patch topically every 14 (fourteen) days 2 each 11 cyclobenzaprine (Flexeril) 10 MG tablet Take 1 tablet (10 mg) by mouth every 8 (eight) hours if needed for muscle spasms. 60 tablet 2 insulin NPH-insulin regular (NovoLIN 70/30) (70-30) 100 UNIT/ML injection Inject 30 Units under the skin in the morning and 30 Units in the evening. Inject before meals. Insulin Syringe-Needle U-100 (BD Veo Insulin Syringe U/F) 31G X 15/64 1 ML misc USE 1 SYRINGE TWICE DAILY 200 each 3 metFORMIN (Glucophage) 500 MG tablet Take 1 tablet (500 mg) by mouth in the morning and 1 tablet (500 mg) in the evening. Take with meals. 60 tablet 11 oxybutynin (Ditropan) 5 MG tablet Take 1 tablet (5 mg) by mouth in the morning and 1 tablet (5 mg) before bedtime. 60 tablet 5 Ozempic, 0.25 or 0.5 MG/DOSE, 2 MG/3ML solution pen-injector Inject 0.5 mg under the skin every 7 (seven) days sildenafil (Viagra) 50 MG tablet TAKE 1 TABLET BY MOUTH ONCE DAILY NEEDED 30 tablet 0 triamterene-hydrochlorothiazide (Maxzide-25) 37.5-25 MG tablet TAKE 1 TABLET BY MOUTH ONCE DAILY IN THE MORNING 100 tablet 3 spironolactone (Aldactone) 25 MG tablet Take 25 mg by mouth Daily No current facility-administered medications for this visit. Review of Systems List of current healthcare providers: Patient Care Team: Kojo Medina MD as PCP - General (Internal Medicine) Kojo Medina MD as PCP - tna Medicare Annual Visit Over the past 2 weeks, how often have you been bothered by any of the following problems? Little interest or pleasure in doing things: (Patient-Rptd) (P) Not at all Feeling down, depressed, or hopeless: (Patient-Rptd) (P) Not at all Patient Health Questionnaire-2 Score: (Patient-Rptd) (P) 0 Huerta Fall Risk History of Falling, Immediate or Within 3 Months: (Patient-Rptd) (P) No Secondary Diagnosis: (Patient-Rptd) (P) No Intravenous Therapy/Heparin Lock: (Patient-Rptd) (P) No Gait/Transferring: (Patient-Rptd) (P) Normal/bedrest/immobile Mental Status: (Patient-Rptd) (P) Oriented to own ability Health Risk Assessment Form Do you need help eating, bathing, using the toilet, dressing, or getting around your home?: (Patient-Rptd) (P) No Can you prepare your own meals?: (Patient-Rptd) (P) Yes Can you do your own housework without help?: (Patient-Rptd) (P) Yes Can you shop for groceries or clothes without help?: (Patient-Rptd) (P) Yes Do you exercise for about 20 minutes 3 or more days a week?: (Patient-Rptd) (P) No How confident are you that you can control and manage most of your health problems?: (Patient-Rptd) (P) Somewhat confident Can you mange your money, credit cards and accounts, pay bills and taxes?: (Patient-Rptd) (P) Yes Cognitive Screening Three Word Registration: Apple, Watch, Dorie Clock Drawing: Normal Clock - 2 Three Word Recall: All 3 words correct - 3 Total Score (0-5 Points): 5 Pain Assessment Pain Score: 2 Advance Care Planning Do you have a living will?: (Patient-Rptd) (P) Yes Do you have a medical power of core man?: (Patient-Rptd) (P) Yes Who is your medical power of core man?: (Patient-Rptd) (P) Mary Matilde Objective : BP 138/72 Ht 5' 8 BMI 45.16 kg/m No results found. Physical Exam Constitutional: General: He is not in acute distress. HENT: Head: Normocephalic and atraumatic. Nose: No rhinorrhea. Cardiovascular: Rate and Rhythm: Normal rate and regular rhythm. Pulses: Dorsalis pedis pulses are 0 on the right side and 0 on the left side. Posterior tibial pulses are 0 on the right side and 0 on the left side. Heart sounds: No murmur heard. Pulmonary: Effort: Pulmonary effort is normal. No respiratory distress. Breath sounds: Normal breath sounds. No wheezing. Abdominal: General: Bowel sounds are normal. There is no distension. Palpations: Abdomen is soft. Tenderness: There is no abdominal tenderness. There is no guarding. Musculoskeletal: Right lower leg: Edema present. Left lower leg: Edema present. Neurological: General: No focal deficit present. Mental Status: He is alert and oriented to person, place, and time. Psychiatric: Mood and Affect: Mood normal. Office Visit on 09/17/2024 Component Date Value Ref Range Status Hemoglobin A1C 09/17/2024 10.4 Final Office Visit on 08/02/2024 Component Date Value Ref Range Status Hemoglobin A1C 08/02/2024 11.9 Final Assessment/Plan : The following health maintenance schedule was reviewed with the patient and provided in printed form in the after visit summary: Health Maintenance Topic Date Due Diabetes: Urine Protein Screening 07/24/2024 Colorectal Cancer Screening 07/29/2024 Influenza Vaccine (Season Ended) 2024 Diabetes: Retinopathy Screening 12/16/2024 Diabetes: Hemoglobin A1C 12/18/2024 Medicare Annual Wellness (AWV) 02/16/2025 Pneumococcal Vaccine: 65+ Years Completed Advance Care Planning Assessment/Plan Diagnoses and all orders for this visit: Routine general medical examination at health care facility ACP (advance care planning) Type 2 diabetes mellitus with other specified complication, with long-term current use of insulin ([facility]) - POCT Glycated hemoglobin, total - cyclobenzaprine (Flexeril) 10 MG tablet; Take 1 tablet (10 mg) by mouth every 8 (eight) hours if needed for muscle spasms - Refer for Diabetic Education Morbidly obese ([facility]) Mixed hyperlipidemia Benign essential hypertension Statin intolerance - Myalgias. Orders Placed This Encounter Procedures POCT Glycated hemoglobin, total Electronically signed by Kojo Meidna MD on September 17, 2024 documented in this encounter [facility] 08-02-2024 History of Present illness Narrative Images from the original note were not included. Subjective Patient ID: Tammy Wu is a 74 y.o. male who presents for Diabetes, Rash, and Urinary Frequency. Diabetes Mellitus Patient presents for follow up of diabetes. Current symptoms include: none. Patient denies foot ulcerations, hypoglycemia , nausea, paresthesia of the feet, polydipsia, polyuria, visual disturbances, and vomiting. Evaluation to date has included: fasting blood sugar, fasting lipid panel, hemoglobin A1C, and microalbuminuria. Home sugars: patient does not check sugars. Pt has had rash in creases of groin x 1-2 weeks using lotrimin otc but not clearing it up Pt has had urinary frequency, and urine dribbling x 1 week Diabetes Pertinent negatives for diabetes include no chest pain and no fatigue. Rash Pertinent negatives include no fatigue. Urinary Frequency Associated symptoms include frequency. Current Outpatient Medications on File Prior to Visit Medication Sig Dispense Refill amLODIPine (Norvasc) 10 MG tablet Take 10 mg by mouth Daily Blood Glucose Monitoring Suppl ([employer] Verio Flex System) w/Device kit carvedilol (Coreg) 6.25 MG tablet Take 1 tablet (6.25 mg) by mouth in the morning and 1 tablet (6.25 mg) in the evening. Take with meals. 180 tablet 3 cyclobenzaprine (Flexeril) 10 MG tablet Take 1 tablet (10 mg) by mouth every 8 (eight) hours if needed for muscle spasms. 60 tablet 2 Insulin Syringe-Needle U-100 (BD Veo Insulin Syringe U/F) 31G X 15/64 1 ML misc USE 1 SYRINGE TWICE DAILY 200 each 3 Lancets ([employer] Delica Plus [id number]) misc Daily metFORMIN (Glucophage) 500 MG tablet Take 1 tablet (500 mg) by mouth in the morning and 1 tablet (500 mg) in the evening. Take with meals. 60 tablet 11 OneTouch Verio test strip 1 each by Other route Daily semaglutide (Ozempic) 2 MG/1.5ML solution pen-injector Inject 0.5 mg under the skin 1 (one) time per week 1.5 mL 11 sildenafil (Viagra) 50 MG tablet TAKE 1 TABLET BY MOUTH ONCE DAILY NEEDED 30 tablet 0 spironolactone (Aldactone) 25 MG tablet Take 25 mg by mouth Daily triamterene-hydrochlorothiazide (Maxzide-25) 37.5-25 MG tablet TAKE 1 TABLET BY MOUTH ONCE DAILY IN THE MORNING 100 tablet 0 [DISCONTINUED] atorvastatin (Lipitor) 40 MG tablet TAKE 1 TABLET BY MOUTH EVERY DAY AT BEDTIME 100 tablet 3 [DISCONTINUED] insulin NPH-insulin regular (NovoLIN 70/30) (70-30) 100 UNIT/ML injection [DISCONTINUED] furosemide (Lasix) 20 MG tablet Take 1 tablet (20 mg) by mouth Daily 30 tablet 11 No current facility-administered medications on file prior to visit. I have reviewed and reconciled the history and medication list with the patient today. Allergies Allergen Reactions Tetanus Toxoid, Adsorbed Other Social History Tobacco Use Smoking status: Former Current packs/day: 0.00 Average packs/day: 2.0 packs/day for 35.0 years (70.0 ttl pk-yrs) Types: Cigarettes Start date: 1964 Quit date: 1999 Years since quittin.3 Smokeless tobacco: Former Types: Snuff, Chew Quit date: 04/04/1989 Tobacco comments: Last smoked: >10 years Substance Use Topics Alcohol use: Not Currently Alcohol/week: 6.0 standard drinks of alcohol Types: 6 Cans of beer per week Drug use: Not Currently Family History Problem Relation Name Age of Onset Hypertension Mother Naty Diabetes Mother Naty Hyperlipidemia Mother Naty Cancer Mother Naty Heart attack Father Samy Diabetes Father Samy Heart disease Father Samy Hypertension Father Samy Hypertension Sibling Diabetes Sibling Past Medical History: Diagnosis Date Arthritis Benign prostatic hyperplasia Diabetes mellitus, type 2 (CMS/HCC) Disc displacement 1983 Diverticulosis 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 HL (hearing loss) Hyperlipidemia (CMS/HCC) Hypertension (CMS/HCC) Internal hemorrhoids Obesity 1998 Past Surgical History: Procedure Laterality Date ACHILLES TENDON SURGERY 1986 APPENDECTOMY BIOPSY Biopsy of prostate COLONOSCOPY 2014 HERNIA REPAIR Left JOINT REPLACEMENT 2003 LAMINECTOMY 1984,02/2014 OTHER SURGICAL HISTORY 2009 Right RCR OTHER SURGICAL HISTORY Bilateral L2-L5 Nerve Blocks 11/21/18, 05/01/2019 OTHER SURGICAL HISTORY Left L2-L5 RFA 06/12/2019, Rt L2-L5 RFA 06/19/2019 OTHER SURGICAL HISTORY 07/20/2022 Lt L4-S1 Facet Injections PARTIAL KNEE ARTHROPLASTY Left 2002 CT TOTAL HIP ARTHROPLASTY Right 10/16/2014 SPINE SURGERY 1998 Visit Vitals BP 132/74 Pulse 56 Ht 5' 8 Wt 297 lb SpO2 97% BMI 45.16 kg/m Smoking Status Former BSA 2.54 m Review of Systems Constitutional: Negative for fatigue. Cardiovascular: Negative for chest pain. Genitourinary: Positive for frequency. Skin: Positive for rash. Objective Physical Exam Constitutional: General: He is not in acute distress. HENT: Head: Normocephalic and atraumatic. Nose: No rhinorrhea. Cardiovascular: Rate and Rhythm: Normal rate and regular rhythm. Pulses: Dorsalis pedis pulses are 0 on the right side and 0 on the left side. Posterior tibial pulses are 0 on the right side and 0 on the left side. Heart sounds: No murmur heard. Pulmonary: Effort: Pulmonary effort is normal. No respiratory distress. Breath sounds: Normal breath sounds. No wheezing. Abdominal: General: Bowel sounds are normal. There is no distension. Palpations: Abdomen is soft. Tenderness: There is no abdominal tenderness. There is no guarding. Musculoskeletal: Right lower leg: Edema present. Left lower leg: Edema present. Neurological: General: No focal deficit present. Mental Status: He is alert and oriented to person, place, and time. Psychiatric: Mood and Affect: Mood normal. Office Visit on 08/02/2024 Component Date Value Ref Range Status Hemoglobin A1C 08/02/2024 11.9 Final Assessment/Plan Diagnoses and all orders for this visit: Type 2 diabetes mellitus with other specified complication, with long-term current use of insulin - POCT Glycated hemoglobin, total - Continuous Glucose Sensor (FreeStyle Radha 3 Sensor) misc; Apply 1 patch topically every 14 (fourteen) days - Continuous Glucose Import Dispatcher (FreeStyle Radha 3 [place]) device; 1 Device continuously - insulin NPH-insulin regular (NovoLIN 70/30) (70-30) 100 UNIT/ML injection; Inject 30 Units under the skin in the morning and 30 Units in the evening. Inject before meals. Encounter for screening for malignant neoplasm of colon - Cologuard colon cancer screening; Future OAB (overactive bladder) - oxybutynin (Ditropan) 5 MG tablet; Take 1 tablet (5 mg) by mouth in the morning and 1 tablet (5 mg) before bedtime. Tinea inguinalis - fluconazole (Diflucan) 100 MG tablet; Take 1 tablet (100 mg) by mouth Daily for 10 days Body mass index (BMI) 45.0-49.9, adult ([facility]) Follow up in about 4 weeks (around 08/30/2024) for F/U med changes, DM- A1C. documented in this encounter [facility] 07-17-2024 History of Present illness Narrative Skin Check Location: Patient requests a skin examination from the waist up, A full body skin exam was offered, patient declined Dermatologic history: no history of skin cancer, no history of atypical moles New patient Lesions: Location: bottom lip, face, back Duration: years Quality: denies pain, denies itch, denies bleeding Modifying factors: aggravated by picking Associated symptoms: scaly, rough Treatments: none All pertinent medical history, medications, and allergies were reviewed. General Exam: alert, oriented to person, place, and time, normal affect, well appearing uses a cane Unaccompanied A complete skin exam was offered, pt declined. Areas not examined despite medical recommendation: From the waist down Scalp, Examined Head, Face Examined Neck Examined Chest Examined Back Examined Abdomen Examined Right arm Examined Left arm Examined Hands Examined Digits,nails: Examined Lymphatics: Not examined Skin Exam 1. SEBORRHEIC KERATOSIS (2) Arms, Trunk Stuck on verrucous, variably pigmented papules and plaques. Patient was counseled regarding these benign growths. Removal is normally not necessary, but they may be removed if they are symptomatic or for cosmetic reasons. 2. SOLARES ANGIOMA Right Postauricular Area Scattered solares-red papule(s). The patient was informed that angiomas are benign growths on the the skin. No treatment is necessary. 3. ACTINIC KERATOSIS (2) Right Lower [place] Lip, Right Malar Cheek Erythematous scaly papules Patient was counseled regarding these sun-induced growths that can develop into squamous cell carcinoma if left untreated. Discussed treatment with cryotherapy. It was emphasized that any treated lesions that fail to resolve should be re-evaluated. Cryotherapy performed today; see procedure note Diagnosis: Actinic keratosis Indication: Precancerous Location: see skin exam Consent: Verbal consent was obtained and risks were discussed, including, but not limited to risks of scarring, darker or community affairs manager pigmentary changes, recurrence, incomplete removal and infection. Method: Liquid nitrogen was used to treat the lesion(s) with two 5-10 second freeze-thaw cycles. Eyes were shielded using cotton pad during procedure Number of lesions treated: 2 Post-procedure instructions: Instructions were given orally and in writing. The office will be contacted if the lesion fails to resolve despite treatment, or if a side effect develops such as abnormal crusting, scabbing, redness or tenderness Cryotherapy, skin lesion - Right Lower Vermilion Lip, Right Malar Cheek 4. MELANOCYTIC NEVUS OF TRUNK Trunk Scattered benign appearing, regular brown to light brown melanocytic papules and macules with similar morphology Counseled regarding these benign growths. Rarely, a nevus can develop into malignant melanoma, so any changing nevi should be promptly re-evaluated. Next Visit: 1 year documented in this encounter [facility] 03-22-2024 History of Present illness Narrative Images from the original note were not included. HPI Diabetes Additional comments: Pt started metformin and trulicity--used the trulicity then recently went back to the ozempic he had at home--pt states his ins co notified him as of apr 04 2024 ozempic should be covered for him Last edited by Georgia Lundy LPN on 03/22/2024 10:17 AM. Subjective Patient ID: Tammy Wu is a 74 y.o. male who presents for Diabetes (Pt started metformin and trulicity--used the trulicity then recently went back to the ozempic he had at home--pt states his ins co notified him as of apr 04 2024 ozempic should be covered for him). Diabetes Mellitus Patient presents for follow up of diabetes. Current symptoms include: none. Patient denies foot ulcerations, hypoglycemia , nausea, paresthesia of the feet, polydipsia, polyuria, visual disturbances, and vomiting. Evaluation to date has included: fasting blood sugar, fasting lipid panel, hemoglobin A1C, and microalbuminuria. Home sugars: patient does not check sugars. Diabetes Pertinent negatives for diabetes include no chest pain and no fatigue. Current Outpatient Medications on File Prior to Visit Medication Sig Dispense Refill amLODIPine (Norvasc) 10 MG tablet Take 10 mg by mouth Daily atorvastatin (Lipitor) 40 MG tablet TAKE 1 TABLET BY MOUTH EVERY DAY AT BEDTIME 100 tablet 3 Blood Glucose Monitoring Suppl (MobileDataforceio Flex System) w/Device kit USE 1 TO CHECK GLUCOSE ONCE DAILY carvedilol (Coreg) 6.25 MG tablet TAKE 2 TABLETS BY MOUTH TWICE DAILY (MORNING AND LATER AFTERNOON). cyclobenzaprine (Flexeril) 10 MG tablet Take 1 tablet (10 mg) by mouth every 8 (eight) hours if needed for muscle spasms. 60 tablet 2 furosemide (Lasix) 20 MG tablet Take 1 tablet (20 mg) by mouth Daily 30 tablet 11 insulin NPH-insulin regular (NovoLIN 70/30) (70-30) 100 UNIT/ML injection 65 units Subcutaneous Before breakfast and supper Insulin Syringe-Needle U-100 (BD Veo Insulin Syringe U/F) 31G X 15/64 1 ML misc USE 1 SYRINGE TWICE DAILY 200 each 3 Lancets (AnyWare [employer] Delica Plus [id number]) misc Daily. metFORMIN (Glucophage) 500 MG tablet Take 1 tablet (500 mg) by mouth in the morning and 1 tablet (500 mg) in the evening. Take with meals. 60 tablet 11 Fliptu Verio test strip 1 each by Other route in the morning. semaglutide (Ozempic) 2 MG/1.5ML solution pen-injector Inject 0.5 mg under the skin 1 (one) time per week sildenafil (Viagra) 50 MG tablet TAKE 1 TABLET BY MOUTH ONCE DAILY NEEDED 30 tablet 0 spironolactone (Aldactone) 25 MG tablet Take 25 mg by mouth Daily triamterene-hydrochlorothiazide (Maxzide-25) 37.5-25 MG tablet Take 1 tablet by mouth Daily 100 tablet 3 [DISCONTINUED] Dulaglutide (Trulicity) 0.75 MG/0.5ML solution auto-injector Inject 0.75 mg under the skin 1 (one) time per week 2 mL 11 [DISCONTINUED] zolpidem (Ambien) 5 MG tablet Take 1 tablet (5 mg) by mouth as needed at bedtime for sleep 30 tablet 0 No current facility-administered medications on file prior to visit. I have reviewed and reconciled the history and medication list with the patient today. Allergies Allergen Reactions Metformin Hcl Diarrhea Tetanus Toxoid, Adsorbed Other Social History Tobacco Use Smoking status: Former Current packs/day: 0.00 Average packs/day: 2.0 packs/day for 35.0 years (70.0 ttl pk-yrs) Types: Cigarettes Start date: 1964 Quit date: 1999 Years since quittin.9 Smokeless tobacco: Former Types: Snuff, Chew Quit date: 04/04/1989 Tobacco comments: Last smoked: >10 years Substance Use Topics Alcohol use: Not Currently Alcohol/week: 6.0 standard drinks of alcohol Types: 6 Cans of beer per week Drug use: Not Currently Family History Problem Relation Name Age of Onset Hypertension Mother Naty Diabetes Mother Naty Hyperlipidemia Mother Naty Cancer Mother Naty Heart attack Father Samy Diabetes Father Samy Heart disease Father Samy Hypertension Father Samy Hypertension Sibling Diabetes Sibling Past Medical History: Diagnosis Date Arthritis Benign prostatic hyperplasia Diabetes mellitus, type 2 (CMS/HCC) Disc displacement 1983 Diverticulosis 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 HL (hearing loss) Hyperlipidemia (CMS/HCC) Hypertension (CMS/HCC) Internal hemorrhoids Obesity 1997 Past Surgical History: Procedure Laterality Date ACHILLES TENDON SURGERY 1986 APPENDECTOMY BIOPSY Biopsy of prostate COLONOSCOPY 2014 HERNIA REPAIR Left JOINT REPLACEMENT 2003 LAMINECTOMY 1983,02/2014 OTHER SURGICAL HISTORY 2009 Right RCR OTHER SURGICAL HISTORY Bilateral L2-L5 Nerve Blocks 11/21/18, 05/01/2019 OTHER SURGICAL HISTORY Left L2-L5 RFA 06/12/2019, Rt L2-L5 RFA 06/19/2019 OTHER SURGICAL HISTORY 07/20/2022 Lt L4-S1 Facet Injections PARTIAL KNEE ARTHROPLASTY Left 2002 CT TOTAL HIP ARTHROPLASTY Right 10/16/2014 SPINE SURGERY 1998 Visit Vitals BP (!) 142/96 Pulse 72 Ht 5' 8 Wt 305 lb SpO2 96% BMI 46.38 kg/m Smoking Status Former BSA 2.57 m Review of Systems Constitutional: Negative for fatigue. Cardiovascular: Negative for chest pain. Objective Physical Exam Constitutional: General: He is not in acute distress. HENT: Head: Normocephalic and atraumatic. Nose: Congestion present. No rhinorrhea. Cardiovascular: Rate and Rhythm: Normal rate and regular rhythm. Pulses: Dorsalis pedis pulses are 0 on the right side and 0 on the left side. Posterior tibial pulses are 0 on the right side and 0 on the left side. Heart sounds: No murmur heard. Pulmonary: Effort: Pulmonary effort is normal. No respiratory distress. Breath sounds: Normal breath sounds. No wheezing. Abdominal: General: Bowel sounds are normal. There is no distension. Palpations: Abdomen is soft. Tenderness: There is no abdominal tenderness. There is no guarding. Musculoskeletal: Right lower leg: Edema present. Left lower leg: Edema present. Neurological: General: No focal deficit present. Mental Status: He is alert and oriented to person, place, and time. Psychiatric: Mood and Affect: Mood normal. Assessment/Plan Diagnoses and all orders for this visit: Benign essential hypertension (CMS/HCC) Type 2 diabetes mellitus with other specified complication, with long-term current use of insulin (CMS/HCC) - POCT Glycated hemoglobin, total - He is switching back to Ozempic in April, as insurance will start covering. Call from [place] for Rx in April. Follow up in about 6 months (around 09/20/2024), or When he returns from [place].. documented in this encounter [facility] 02-17-2024 History of Present illness Narrative Images from the original note were not included. Subjective : Chief Complaint: Tammy Wu is an 73 y.o. male here for an annual wellness visit. I have reviewed and reconciled the history and medication list with the patient today. Current Outpatient Medications Medication Sig Dispense Refill amLODIPine (Norvasc) 10 MG tablet Take 10 mg by mouth Daily atorvastatin (Lipitor) 40 MG tablet TAKE 1 TABLET BY MOUTH EVERY DAY AT BEDTIME 100 tablet 3 Blood Glucose Monitoring Suppl (Fliptu Verio Flex System) w/Device kit USE 1 TO CHECK GLUCOSE ONCE DAILY carvedilol (Coreg) 6.25 MG tablet TAKE 2 TABLETS BY MOUTH TWICE DAILY (MORNING AND LATER AFTERNOON). cyclobenzaprine (Flexeril) 10 MG tablet Take 1 tablet (10 mg) by mouth every 8 (eight) hours if needed for muscle spasms. 60 tablet 2 furosemide (Lasix) 20 MG tablet Take 1 tablet (20 mg) by mouth Daily 30 tablet 11 insulin NPH-insulin regular (NovoLIN 70/30) (70-30) 100 UNIT/ML injection 65 units Subcutaneous Before breakfast and supper Insulin Syringe-Needle U-100 (BD Veo Insulin Syringe U/F) 31G X 15/64 1 ML misc USE 1 SYRINGE TWICE DAILY 200 each 3 Lancets ([employer] Delica Plus [id number]) misc Daily. Fliptu Verio test strip 1 each by Other route in the morning. sildenafil (Viagra) 50 MG tablet TAKE 1 TABLET BY MOUTH ONCE DAILY NEEDED 30 tablet 0 spironolactone (Aldactone) 25 MG tablet Take 25 mg by mouth Daily triamterene-hydrochlorothiazide (Maxzide-25) 37.5-25 MG tablet Take 1 tablet by mouth Daily 100 tablet 3 zolpidem (Ambien) 5 MG tablet Take 1 tablet (5 mg) by mouth as needed at bedtime for sleep 30 tablet 0 Dulaglutide (Trulicity) 0.75 MG/0.5ML solution auto-injector Inject 0.75 mg under the skin 1 (one) time per week 2 mL 11 metFORMIN (Glucophage) 500 MG tablet Take 1 tablet (500 mg) by mouth in the morning and 1 tablet (500 mg) in the evening. Take with meals. 60 tablet 11 No current facility-administered medications for this visit. Review of Systems List of current healthcare providers: Patient Care Team: Kojo Medina MD as PCP - General (Internal Medicine) Kojo Medina MD as PCP - [employer] Annual Visit Over the past 2 weeks, how often have you been bothered by any of the following problems? Feeling down, depressed, or hopeless: (Patient-Rptd) (P) Not at all Huerta Fall Risk History of Falling, Immediate or Within 3 Months: (Patient-Rptd) (P) No Secondary Diagnosis: (Patient-Rptd) (P) No Ambulatory Aid: (Patient-Rptd) (P) Walks without aid/bedrest/nurse assist Intravenous Therapy/Heparin Lock: (Patient-Rptd) (P) No Gait/Transferring: (Patient-Rptd) (P) Normal/bedrest/immobile Mental Status: (Patient-Rptd) (P) Oriented to own ability Huerta Fall Risk Score: (Patient-Rptd) (P) 0 Health Risk Assessment Form Do you need help eating, bathing, using the toilet, dressing, or getting around your home?: (Patient-Rptd) (P) No Can you prepare your own meals?: (Patient-Rptd) (P) Yes Can you do your own housework without help?: (Patient-Rptd) (P) Yes Can you shop for groceries or clothes without help?: (Patient-Rptd) (P) Yes Do you exercise for about 20 minutes 3 or more days a week?: (Patient-Rptd) (P) No How confident are you that you can control and manage most of your health problems?: (Patient-Rptd) (P) Somewhat confident Can you mange your money, credit cards and accounts, pay bills and taxes?: (Patient-Rptd) (P) Yes Cognitive Screening Three Word Registration: Apple, Watch, Dorie Clock Drawing: Normal Clock - 2 Three Word Recall: All 3 words correct - 3 Total Score (0-5 Points): 5 Pain Assessment Pain Score: (Patient-Rptd) (P) 2 Advance Care Planning Do you have a living will?: (Patient-Rptd) (P) Yes Do you have a medical power of core man?: (Patient-Rptd) (P) Yes Who is your medical power of core man?: (Patient-Rptd) (P) Mary Matilde daughter Objective : BP 134/76 Pulse 70 Ht 5' 8 Wt 317 lb SpO2 96% BMI 48.20 kg/m No results found. Physical Exam Constitutional: General: He is not in acute distress. HENT: Head: Normocephalic and atraumatic. Nose: Congestion present. No rhinorrhea. Cardiovascular: Rate and Rhythm: Normal rate and regular rhythm. Pulses: Dorsalis pedis pulses are 0 on the right side and 0 on the left side. Posterior tibial pulses are 0 on the right side and 0 on the left side. Heart sounds: No murmur heard. Pulmonary: Effort: Pulmonary effort is normal. No respiratory distress. Breath sounds: Normal breath sounds. No wheezing. Abdominal: General: Bowel sounds are normal. There is no distension. Palpations: Abdomen is soft. Tenderness: There is no abdominal tenderness. There is no guarding. Musculoskeletal: Right lower leg: Edema present. Left lower leg: Edema present. Neurological: General: No focal deficit present. Mental Status: He is alert and oriented to person, place, and time. Psychiatric: Mood and Affect: Mood normal. Assessment/Plan : The following health maintenance schedule was reviewed with the patient and provided in printed form in the after visit summary: Health Maintenance Topic Date Due Influenza Vaccine (1) 12/04/2023 Medicare Annual Wellness (AWV) 01/21/2024 Colorectal Cancer Screening 07/29/2024 Diabetes: Hemoglobin A1C 05/19/2024 Diabetes: Retinopathy Screening 12/16/2024 Diabetes: Urine Protein Screening 01/31/2025 Pneumococcal Vaccine: 65+ Years Completed Advance Care Planning Assessment/Plan Diagnoses and all orders for this visit: Routine general medical examination at health care facility ACP (advance care planning) Type 2 diabetes mellitus with other specified complication, with long-term current use of insulin ([facility]) - POCT Glycated hemoglobin, total - metFORMIN (Glucophage) 500 MG tablet; Take 1 tablet (500 mg) by mouth in the morning and 1 tablet (500 mg) in the evening. Take with meals. - Dulaglutide (Trulicity) 0.75 MG/0.5ML solution auto-injector; Inject 0.75 mg under the skin 1 (one) time per week Type 2 diabetes mellitus with hyperglycemia (CMS/HCC) 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[facility]) Follow up in about 6 weeks (around 03/30/2024) for DM- A1C, F/U med changes, Perform Labwork (CMP on RTC). Orders Placed This Encounter Procedures POCT Glycated hemoglobin, total Electronically signed by Kojo Medina MD on February 17, 2024 documented in this encounter [facility] 02-01-2024 History of Present illness Narrative Images from the original note were not included. Subjective Patient ID: Tammy Wu is a 73 y.o. male who presents for Results. Pt states he was not talked to regarding the results it was his partner Pt cough is not gone Has not started lasix yet. Will start and take for 5 days and see how he is doing. Feeling much better. Current Outpatient Medications on File Prior to Visit Medication Sig Dispense Refill carvedilol (Coreg) 6.25 MG tablet TAKE 2 TABLETS BY MOUTH TWICE DAILY (MORNING AND LATER AFTERNOON). spironolactone (Aldactone) 25 MG tablet Take 25 mg by mouth Daily triamcinolone (Kenalog) 0.1 % cream amLODIPine (Norvasc) 10 MG tablet Take 10 mg by mouth Daily atorvastatin (Lipitor) 40 MG tablet TAKE 1 TABLET BY MOUTH EVERY DAY AT BEDTIME 100 tablet 3 [] azithromycin (Zithromax) 250 MG tablet Take 2 tablets (500 mg) by mouth Daily for 1 day, THEN 1 tablet (250 mg) Daily for 4 days. 6 tablet 0 Blood Glucose Monitoring Suppl (MobileDataforceio Flex System) w/Device kit USE 1 TO CHECK GLUCOSE ONCE DAILY cyclobenzaprine (Flexeril) 10 MG tablet Take 1 tablet (10 mg) by mouth every 8 (eight) hours if needed for muscle spasms. 60 tablet 2 Exenatide ER (Bydureon) 2 MG pen-injector Inject 2 mg under the skin every 7 (seven) days Dispense 8mg 8 each 11 furosemide (Lasix) 20 MG tablet Take 1 tablet (20 mg) by mouth Daily 30 tablet 11 insulin NPH-insulin regular (NovoLIN 70/30) (70-30) 100 UNIT/ML injection 65 units Subcutaneous Before breakfast and supper Insulin Syringe-Needle U-100 (BD Veo Insulin Syringe U/F) 31G X 15/64 1 ML misc USE 1 SYRINGE TWICE DAILY 200 each 3 Lancets (Fliptu Delica Plus [id number]) misc Daily. [] methylPREDNISolone (Medrol Dospak) 4 MG tablets Follow schedule on package instructions 21 tablet 0 [employer]are [employer]uch Verio test strip 1 each by Other route in the morning. sildenafil (Viagra) 50 MG tablet TAKE 1 TABLET BY MOUTH ONCE DAILY NEEDED 30 tablet 0 triamterene-hydrochlorothiazide (Maxzide-25) 37.5-25 MG tablet Take 1 tablet by mouth Daily 100 tablet 3 zolpidem (Ambien) 5 MG tablet Take 1 tablet (5 mg) by mouth as needed at bedtime for sleep 30 tablet 0 [DISCONTINUED] carvedilol (Coreg) 12.5 MG tablet Take 12.5 mg by mouth in the morning and 12.5 mg in the evening. Take with meals. No current facility-administered medications on file prior to visit. I have reviewed and reconciled the history and medication list with the patient today. Allergies Allergen Reactions Metformin Hcl Diarrhea Tetanus Toxoid, Adsorbed Other Social History Tobacco Use Smoking status: Former Current packs/day: 0.00 Average packs/day: 2.0 packs/day for 35.0 years (70.0 ttl pk-yrs) Types: Cigarettes Start date: 1964 Quit date: 1999 Years since quittin.8 Smokeless tobacco: Former Types: Snuff, Chew Quit date: 04/04/1989 Tobacco comments: Last smoked: >10 years Substance Use Topics Alcohol use: Not Currently Alcohol/week: 6.0 standard drinks of alcohol Types: 6 Cans of beer per week Drug use: Not Currently Family History Problem Relation Name Age of Onset Hypertension Mother Naty Diabetes Mother Naty Hyperlipidemia Mother Naty Cancer Mother Naty Heart attack Father Samy Diabetes Father Samy Heart disease Father Samy Hypertension Father Samy Hypertension Sibling Diabetes Sibling Past Medical History: Diagnosis Date Arthritis Benign prostatic hyperplasia Diabetes mellitus, type 2 (CMS/HCC) Disc displacement 1983 Diverticulosis 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 HL (hearing loss) Hyperlipidemia (CMS/HCC) Hypertension (CMS/HCC) Internal hemorrhoids Obesity 1997 Past Surgical History: Procedure Laterality Date ACHILLES TENDON SURGERY 1986 APPENDECTOMY BIOPSY Biopsy of prostate COLONOSCOPY 2014 HERNIA REPAIR Left JOINT REPLACEMENT 2003 LAMINECTOMY 1983,02/2014 OTHER SURGICAL HISTORY 2009 Right RCR OTHER SURGICAL HISTORY Bilateral L2-L5 Nerve Blocks 11/21/18, 05/01/2019 OTHER SURGICAL HISTORY Left L2-L5 RFA 06/12/2019, Rt L2-L5 RFA 06/19/2019 OTHER SURGICAL HISTORY 07/20/2022 Lt L4-S1 Facet Injections PARTIAL KNEE ARTHROPLASTY Left 2002 CT TOTAL HIP ARTHROPLASTY Right 10/16/2014 SPINE SURGERY 1998 Visit Vitals Smoking Status Former Review of Systems Constitutional: Negative. HENT: Negative. Eyes: Negative. Respiratory: Positive for cough. Cardiovascular: Negative. Gastrointestinal: Negative. Genitourinary: Negative. Musculoskeletal: Negative. Skin: Negative. Neurological: Negative. Psychiatric/Behavioral: Negative. Objective Physical Exam Vitals reviewed. Constitutional: Appearance: Normal appearance. HENT: Head: Normocephalic. Mouth/Throat: Mouth: Mucous membranes are moist. Pharynx: Oropharynx is clear. Cardiovascular: Rate and Rhythm: Normal rate and regular rhythm. Pulmonary: Effort: Pulmonary effort is normal. Skin: General: Skin is warm and dry. Neurological: General: No focal deficit present. Mental Status: He is alert and oriented to person, place, and time. Psychiatric: Mood and Affect: Mood normal. Behavior: Behavior normal. Thought Content: Thought content normal. Assessment/Plan Diagnoses and all orders for this visit: Type 2 diabetes mellitus without complication, with long-term current use of insulin (CMS/[facility]) - Comprehensive metabolic panel; Future - CBC; Future We discussed today, the importance of proper diabetic control. We discussed possible complications of diabetes, including loss of vision, renal failure, increased risk of heart attacks and strokes, blood vessel and/or nerve damage. We discussed the recommended changes to reduce your blood sugars and minimize the risk of these complications. We discussed diabetic goals, including keeping A1C <7.0% and blood pressure < 130/70. The plan for achieving these goals is adherence to medications, diet, and regular activity as discussed during today's visit. We discussed current barriers to achieving these goals. We discussed dietary goals. We discussed calorie counting, as well as decreasing carbohydrate and simple sugar intake. Reviewed portion control with the patient. If the patient still has questions on this, a referral to a Dietitian can be arranged. I reviewed medications that aid in diabetic control. We discussed proper dosing and educated the patient on possible side effects and complications. The patient verbalized understanding of these instructions. Benign essential hypertension (CMS/HCC) - Comprehensive metabolic panel; Future - CBC; Future Patient's blood pressure is currently well controlled. Continue with current medications and I will continue to monitor. Goal BP remains less than 130/80. Prostate cancer screening - PSA; Future Await lab Fatty liver This is a chronic medical condition that is stable since last assessment. No changes in treatment are suggested at this time. BPH with urinary obstruction - Comprehensive metabolic panel; Future This is a chronic medical condition that is stable since last assessment. No changes in treatment are suggested at this time. Mixed hyperlipidemia (CMS/HCC) - Lipid panel; Future Await lab Body mass index (BMI) 45.0-49.9, adult (CMS/HCC) - TSH W/REFLEX TO FT4; Future Discussed goal of BMI < 30. Advised on weight loss options. Encouraged diet and exercise. Discussed with patient appropriate lifestyle modification changes necessary for weight management, heart healthy eating and overall health promotion. Discussed minimizing high carb, high sugar, high sodium, portion control, and processed foods while making healthy choice replacements. Additionally discussed recommendations of 30 minutes of aerobic exercise at least 5 days per week, that includes, walking, and chair exercises. . Instructed importance of drinking adequate water consumption (if not on fluid restriction) with minimal sugar and caffiene. Screening for thyroid disorder - TSH W/REFLEX TO FT4; Future Await lab Elevated brain natriuretic peptide (BNP) level Start lasix as ordered. Eat a banana everyday as the water pill can deplete your potassium.. Take for atleast 5 days consecutively. No follow-ups on file. documented in this encounter [facility] 01-24-2024 History of Present illness Narrative Images from the original note were not included. Subjective Patient ID: Tammy Wu is a 73 y.o. male who presents for Shortness of Breath. Pt has been short of breath, productive cough x 7 weeks,wheezing x 2 weeks Denies fever,sinus pressure,sorethroat Shortness of Breath This is a recurrent problem. The current episode started 1 to 4 weeks ago. The problem occurs intermittently. The problem has been gradually worsening. Associated symptoms include sputum production and wheezing. The symptoms are aggravated by exercise and any activity. The patient has no known risk factors for DVT/PE. He has tried oral steroids for the symptoms. The treatment provided mild relief. Current Outpatient Medications on File Prior to Visit Medication Sig Dispense Refill amLODIPine (Norvasc) 10 MG tablet Take 10 mg by mouth Daily atorvastatin (Lipitor) 40 MG tablet TAKE 1 TABLET BY MOUTH EVERY DAY AT BEDTIME 100 tablet 3 Blood Glucose Monitoring Suppl (Fliptu Verio Flex System) w/Device kit USE 1 TO CHECK GLUCOSE ONCE DAILY carvedilol (Coreg) 12.5 MG tablet Take 12.5 mg by mouth in the morning and 12.5 mg in the evening. Take with meals. cyclobenzaprine (Flexeril) 10 MG tablet Take 1 tablet (10 mg) by mouth every 8 (eight) hours if needed for muscle spasms. 60 tablet 2 Exenatide ER (Bydureon) 2 MG pen-injector Inject 2 mg under the skin every 7 (seven) days Dispense 8mg 8 each 11 insulin NPH-insulin regular (NovoLIN 70/30) (70-30) 100 UNIT/ML injection 65 units Subcutaneous Before breakfast and supper Insulin Syringe-Needle U-100 (BD Veo Insulin Syringe U/F) 31G X 15/64 1 ML misc USE 1 SYRINGE TWICE DAILY 200 each 3 Lancets (VidientTouch Delica Plus [id number]) misc Daily. VidientTouch Verio test strip 1 each by Other route in the morning. sildenafil (Viagra) 50 MG tablet TAKE 1 TABLET BY MOUTH ONCE DAILY NEEDED 30 tablet 0 triamterene-hydrochlorothiazide (Maxzide-25) 37.5-25 MG tablet Take 1 tablet by mouth Daily 100 tablet 3 [DISCONTINUED] amLODIPine (Norvasc) 5 MG tablet TAKE 1 TABLET BY MOUTH ONCE DAILY (TAKE SAME TIME EACH DAY) 100 tablet 3 No current facility-administered medications on file prior to visit. I have reviewed and reconciled the history and medication list with the patient today. Allergies Allergen Reactions Metformin Hcl Diarrhea Tetanus Toxoid, Adsorbed Other Social History Tobacco Use Smoking status: Former Current packs/day: 0.00 Average packs/day: 2.0 packs/day for 35.0 years (70.0 ttl pk-yrs) Types: Cigarettes Start date: 1964 Quit date: 2000 Years since quittin.8 Smokeless tobacco: Never Tobacco comments: Last smoked: >10 years Substance Use Topics Alcohol use: Yes Alcohol/week: 6.0 standard drinks of alcohol Types: 6 Cans of beer per week Family History Problem Relation Name Age of Onset Hypertension Mother Diabetes Mother Hyperlipidemia Mother Cancer Mother Heart attack Father Diabetes Father Heart disease Father Hypertension Father Hypertension Sibling Diabetes Sibling Past Medical History: Diagnosis Date Arthritis Benign prostatic hyperplasia Diabetes mellitus, type 2 (CMS/HCC) Disc displacement 1983 Diverticulosis 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68 kg/m Smoking Status Former BSA 2.58 m Review of Systems Respiratory: Positive for sputum production, shortness of breath and wheezing. Objective Physical Exam Vitals reviewed. Constitutional: Appearance: Normal appearance. HENT: Head: Normocephalic. Right Ear: A middle ear effusion is present. Left Ear: A middle ear effusion is present. Mouth/Throat: Pharynx: Posterior oropharyngeal erythema and postnasal drip present. Cardiovascular: Rate and Rhythm: Normal rate and regular rhythm. Pulmonary: Breath sounds: Wheezing present. Abdominal: General: Bowel sounds are normal. Palpations: Abdomen is soft. Musculoskeletal: Right lower leg: Edema present. Left lower leg: Edema present. Skin: General: Skin is warm and dry. Neurological: General: No focal deficit present. Mental Status: He is alert and oriented to person, place, and time. Psychiatric: Mood and Affect: Mood normal. Behavior: Behavior normal. Assessment/Plan Diagnoses and all orders for this visit: Shortness of breath - XR chest 2 views; Future - B-type natriuretic peptide; Future Await results of testing. Pt is concerned that he has CHF. Wheezing - XR chest 2 views; Future - B-type natriuretic peptide; Future Await results of testing. First degree atrioventricular block - B-type natriuretic peptide; Future Await lab Pulse irregularity - B-type natriuretic peptide; Future Await lab Acute non-recurrent pansinusitis - methylPREDNISolone (Medrol Dospak) 4 MG tablets; Follow schedule on package instructions - azithromycin (Zithromax) 250 MG tablet; Take 2 tablets (500 mg) by mouth Daily for 1 day, THEN 1 tablet (250 mg) Daily for 4 days. Start the above as directed. Reviewed potential s/e with patient. Encouraged probiotic while on antibiotic. Increase water intake, get plenty of rest. Can take OTC allergy medication for symptomatic relief. Tylenol/Motrin prn. Follow up if no improvement in one week. Insomnia, unspecified type - zolpidem (Ambien) 5 MG tablet; Take 1 tablet (5 mg) by mouth as needed at bedtime for sleep Discussed sleep hygiene with the patient. Encouraged patient to try to go to bed at the same time every night and wake up at the same time each morning. Also encouraged patient to use the bed for sleep and intimacy only. Avoid stimulating activities before bed, i.e. use of electronic devices, watching TV. Avoid exercise within 4 hours of going to bed. Avoid caffeine within 6 hours of going to bed. Keep bedroom cool and dark. Avoid nicotine and alcohol. Discussed risks of this class of medication including the potential for abuse, reliance. Discussed importance of properly storing and disposing of the medication. Reviewed the goals of treatment, including improving pain control and improving functional status. Medication choice and dosage is appropriate for patient's current medical conditions. Reviewed the rules and regulations surrounding prescription of opioids and compliance at length with the patient. Patient will be required to be seen in our office at least every three months for monitoring. At each follow up visit I will reassess the patient's need for the medication. Patient is to have this medication prescribed only through this office. Failure to follow the rules and regulations will result in tapering and discontinuation of medications if applicable. Patient verbalized understanding. OARRS Report was reviewed for this patient. No follow-ups on file. documented in this encounter [facility] 01-13-2024 History of Present illness Narrative Subjective Tammy Wu is a 73 y.o. male Chief Complaint Follow-up HPI Patient is here for follow-up continue management for hypertension, hyperlipidemia, obesity and documentation of sinus bradycardia. He is a former patient of Dr. Lion. When he was seen last time his [...] Scribe Attestation By signing my name below, Kelly Gutierrez LPN, Scribe attest that this documentation has been prepared under the direction and in the presence of Ro Pendleton MD. Provider Attestation - Scribe documentation All medical record entries made by the Scribe were at my direction and personally dictated by me. I have reviewed the chart and agree that the record accurately reflects my personal performance of the history, physical exam, discussion and plan. documented in this encounter [facility] Work Phone: 01-13-2024 Instructions Kelly Pina [...] mg DASH diet documented in this encounter [facility] Work Phone: 12-21-2023 History of Present illness Narrative Images from the original note were not included. Subjective Patient ID: Tammy Wu is a 73 y.o. male who presents for Diabetes. And cough x 1 month cough has improved but still has a lingering cough Diabetes Mellitus Patient presents for follow up of diabetes. Current symptoms include: none. Patient denies foot ulcerations, hypoglycemia , nausea, paresthesia of the feet, polydipsia, polyuria, visual disturbances, and vomiting. Evaluation to date has included: fasting blood sugar, fasting lipid panel, hemoglobin A1C, and microalbuminuria. Home sugars: patient does not check sugars. Current treatment: 70/30 insulin, bydureon Diabetes Pertinent negatives for diabetes include no chest pain and no fatigue. Current Outpatient Medications on File Prior to Visit Medication Sig Dispense Refill amLODIPine (Norvasc) 5 MG tablet TAKE 1 TABLET BY MOUTH ONCE DAILY (TAKE SAME TIME EACH DAY) 100 tablet 3 atorvastatin (Lipitor) 40 MG tablet TAKE 1 TABLET BY MOUTH EVERY DAY AT BEDTIME 100 tablet 3 Blood Glucose Monitoring Suppl (Fliptu Verio Flex System) w/Device kit USE 1 TO CHECK GLUCOSE ONCE DAILY carvedilol (Coreg) 12.5 MG tablet Take 12.5 mg by mouth in the morning and 12.5 mg in the evening. Take with meals. cyclobenzaprine (Flexeril) 10 MG tablet Take 1 tablet (10 mg) by mouth every 8 (eight) hours if needed for muscle spasms. 60 tablet 2 Exenatide ER (Bydureon) 2 MG pen-injector Inject 2 mg under the skin every 7 (seven) days Dispense 8mg 8 each 11 insulin NPH-insulin regular (NovoLIN 70/30) (70-30) 100 UNIT/ML injection 65 units Subcutaneous Before breakfast and supper insulin syringe-needle U-100 (RELION INSULIN SYRINGE 1ML/31G) 31G X 5/16 1 mL misc USE 1 SUBCUTANEOUSLY TWICE DAILY 180 each 0 Lancets (VidientTouch Delica Plus [id number]) misc Daily. Fliptu Verio test strip 1 each by Other route in the morning. sildenafil (Viagra) 50 MG tablet TAKE 1 TABLET BY MOUTH ONCE DAILY NEEDED 30 tablet 0 triamterene-hydrochlorothiazide (Maxzide-25) 37.5-25 MG tablet Take 1 tablet by mouth Daily 100 tablet 3 No current facility-administered medications on file prior to visit. I have reviewed and reconciled the history and medication list with the patient today. Allergies Allergen Reactions Metformin Hcl Diarrhea Tetanus Toxoid, Adsorbed Other Social History Tobacco Use Smoking status: Former Current packs/day: 0.00 Average packs/day: 2.0 packs/day for 35.0 years (70.0 ttl pk-yrs) Types: Cigarettes Start date: 1964 Quit date: 1999 Years since quittin.7 Smokeless tobacco: Never Tobacco comments: Last smoked: >10 years Substance Use Topics Alcohol use: Yes Alcohol/week: 6.0 standard drinks of alcohol Types: 6 Cans of beer per week Family History Problem Relation Name Age of Onset Hypertension Mother Diabetes Mother Hyperlipidemia Mother Cancer Mother Heart attack Father Diabetes Father Heart disease Father Hypertension Father Hypertension Sibling Diabetes Sibling Past Medical History: Diagnosis Date Arthritis Benign prostatic hyperplasia Diabetes mellitus, type 2 (CMS/HCC) Disc displacement 1983 Diverticulosis 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 Hyperlipidemia (CMS/HCC) Hypertension (CMS/HCC) Internal hemorrhoids Past Surgical History: Procedure Laterality Date ACHILLES TENDON SURGERY 1986 APPENDECTOMY BIOPSY Biopsy of prostate COLONOSCOPY 2014 HERNIA REPAIR Left LAMINECTOMY 1983,02/2014 OTHER SURGICAL HISTORY 2009 Right RCR OTHER SURGICAL HISTORY Bilateral L2-L5 Nerve Blocks 11/21/18, 05/01/2019 OTHER SURGICAL HISTORY Left L2-L5 RFA 06/12/2019, Rt L2-L5 RFA 06/19/2019 OTHER SURGICAL HISTORY 07/20/2022 Lt L4-S1 Facet Injections PARTIAL KNEE ARTHROPLASTY Left 2002 CT TOTAL HIP ARTHROPLASTY Right 10/16/2014 Visit Vitals BP 130/64 Pulse 90 Ht 5' 8 Wt 307 lb SpO2 94% BMI 46.68 kg/m Smoking Status Former BSA 2.58 m Review of Systems Constitutional: Negative for fatigue. Cardiovascular: Negative for chest pain. Objective Physical Exam Constitutional: General: He is not in acute distress. HENT: Head: Normocephalic and atraumatic. Nose: Congestion present. No rhinorrhea. Cardiovascular: Rate and Rhythm: Normal rate and regular rhythm. Pulses: Dorsalis pedis pulses are 0 on the right side and 0 on the left side. Posterior tibial pulses are 0 on the right side and 0 on the left side. Heart sounds: No murmur heard. Pulmonary: Effort: Pulmonary effort is normal. No respiratory distress. Breath sounds: Normal breath sounds. No wheezing. Abdominal: General: Bowel sounds are normal. There is no distension. Palpations: Abdomen is soft. Tenderness: There is no abdominal tenderness. There is no guarding. Musculoskeletal: Right lower leg: Edema present. Left lower leg: Edema present. Neurological: General: No focal deficit present. Mental Status: He is alert and oriented to person, place, and time. Psychiatric: Mood and Affect: Mood normal. Office Visit on 12/21/2023 Component Date Value Ref Range Status Hemoglobin A1C 12/21/2023 10.2 Final Assessment/Plan Diagnoses and all orders for this visit: Type 2 diabetes mellitus with other specified complication, with long-term current use of insulin (CMS/HCC) - POCT Glycated hemoglobin, total - He is not checking FSBS. - On 70/30, 65 units bid - He has lost 8lbs in 2 months on Bydureon, will give it more time to work. Mixed hyperlipidemia (CMS/HCC) Upper respiratory tract infection, unspecified type - azithromycin (Zithromax) 250 MG tablet; Take 2 tablets (500 mg) by mouth Daily for 1 day, THEN 1 tablet (250 mg) Daily for 4 days. Follow up in about 2 months (around 02/20/2024) for DM- A1C. documented in this encounter [facility] 10-10-2023 History of Present illness Narrative Subjective Tammy Wu is a 73 y.o. male Chief Complaint Annual Exam HPI Patient returns in follow-up of problems as noted. In the interim he is done relatively well. Blood pressure is acceptable although a bit high. I believe it could be compensatory because of his bradycardia arrhythmia. Heart rate 41. His lipids are adequately controlled. Review of his EKG demonstrates sinus rhythm with Wenke Bach phenomenon and prolonged CT intervals. It is also possible that he may have A-V dissociation. He is asymptomatic except for some fatigue and exertional dyspnea. Because of these findings I recommend a 75% reduction in carvedilol dosage down to 6.25 mg twice a day. A follow-up visit and her EKG in 2 weeks. Obviously if bradycardia arrhythmia does not resolve he may require device implantation. I explained to him the importance of follow-up to ascertain rhythm and be certain that this bradycardia arrhythmia resolves (or does not) with the adjustment of beta-ofelia therapy. He was encouraged to seek care if he has syncope near syncope or other arrhythmia symptomatology. Vitals: 10/10/23 1042 BP: 156/58 BP Location: Right arm Patient Position: Sitting Pulse: (!) 41 Weight: 141 kg (310 lb) Height: 1.702 m (5' 7 ) EKG done in office today Objective Physical Exam Constitutional: Appearance: Normal appearance. [...] Metformin hcl Current Medications Current Outpatient Medications: amLODIPine (Norvasc) 5 mg tablet, Take 1 tablet (5 mg) by mouth once daily., Disp: , Rfl: aspirin 81 mg capsule, Take by mouth once daily., Disp: , Rfl: atorvastatin (Lipitor) 40 mg tablet, Take 1 tablet (40 mg) by mouth once daily., Disp: , Rfl: carvedilol (Coreg) 25 mg tablet, Take 1 tablet (25 mg) by mouth 2 times daily (morning and late afternoon)., Disp: , Rfl: cholecalciferol (Vitamin D3) 25 MCG (1000 UT) capsule, Take 1 capsule (25 mcg) by mouth once daily., Disp: , Rfl: cyclobenzaprine (Flexeril) 10 mg tablet, Take 1 tablet (10 mg) by mouth every 8 hours if needed for muscle spasms., Disp: , Rfl: ibuprofen 200 mg tablet, [...] by mouth once daily., Disp: , Rfl: Ozempic 1 mg/dose (4 mg/3 mL) pen injector, Inject 1 mg under the skin 1 (one) time per week. Tuesday, Disp: , Rfl: spironolactone (Aldactone) 25 mg tablet, Take 1 tablet by mouth once daily, Disp: 90 tablet, Rfl: 0 triamterene-hydrochlorothiazid (Maxzide-25) 37.5-25 mg tablet, Take 1 tablet by mouth once daily., Disp: , Rfl: Assessment/Plan 1. Mixed hyperlipidemia Review of treatment strategy demonstrates good control - Follow Up In Cardiology; Future - Follow Up In Cardiology; Future 2. Benign essential hypertension Review of treatment demonstrates acceptable control 3. Bradycardia New development, may require adjustments in therapy as above. If bradycardia arrhythmia does not improve pacemaker implantation may have to be considered - carvedilol (Coreg) 6.25 mg tablet; Take 2 tablets (12.5 mg) by mouth 2 times daily (morning and late afternoon). Dispense: 360 tablet; Refill: 3 - ECG 12 Lead Scribe Attestation By signing my name below, I, Kimberly Gaitan LPNibe attest that this documentation has been prepared under the direction and in the presence of Colin Lion MD. Provider Attestation - Scribe documentation All medical record entries made by the Scribe were at my direction and personally dictated by me. I have reviewed the chart and agree that the record accurately reflects my personal performance of the history, physical exam, discussion and plan. documented in this encounter [facility] Work Phone: 10-10-2023 Instructions Neeta Lopez LPN - 10/10/2023 10:40 AM EDT Please bring all medicines, vitamins, and herbal supplements with you when you come to the office. Prescriptions will not be filled unless you are compliant with your follow up appointments or have a follow up appointment scheduled as per instruction of your physician. Refills should be requested at the time of your visit. BMI was above normal measurement. Current weight: 141 kg (310 lb) Weight change since last visit (-) denotes wt loss 14.8 lbs Weight loss needed to achieve BMI 25: 150.7 Lbs Weight loss needed to achieve BMI 30: 118.9 Lbs Provided instructions on dietary changes Provided instructions on exercise. documented in this encounter [facility] Work Phone: 03-24-2023 Miscellaneous Notes CARPAL TUNNEL RELEASE- LOCAL PREOPERATIVE DIAGNOSIS: RIGHT Carpal Tunnel Syndrome POSTOPERATIVE DIAGNOSIS: RIGHT Carpal Tunnel Syndrome PROCEDURE: RIGHT Open Carpal Tunnel Release ([id number]) SURGEON: SERA EUCEDA MD ANESTHESIA: Local. COMPLICATIONS: [...] the entire length of the case. Sera Mayen MD Reviewed medical history and current medications. Patient is having a local procedure and will arrive with his significant other. documented in this encounter [facility] Work Phone: 03-24-2023 Note Formatting of this n ote might be different from the original. CARPAL TUNNEL RELEASE- LOCAL PREOPERATIVE DIAGNOSIS: RIGHT Carpal Tunnel Syndrome POSTOPERATIVE DIAGNOSIS: RIGHT Carpal Tunnel Syndrome PROCEDURE: RIGHT Open Carpal Tunnel Release ([id number]) SURGEON: SERA EUCEDA MD ANESTHESIA: Local. COMPLICATIONS: [...] the entire length of the case. Sera Mayen MD [facility] Work Phone: 03-24-2023 Hospital Discharge instructions Radha [...] could happen? Long-term hand numbness or weakness Networking Technician weakness Loss of function in the hand [...] and wrist. More numbness in the hand Networking Technician is weaker documented in this encounter [facility] Work Phone: 03-24-2023 History and physical note Updated H&P Patient presents for local hand surgery. Prior notes, medication, PMH, PSH, allergies reviewed. PE CTAB RRR Abdomen soft Plan to proceed with elective surgery today All questions addressed [facility] Work Phone: 03-24-2023 History and physical note Updated H&P Patient presents for local hand surgery. Prior notes, medication, PMH, PSH, allergies reviewed. PE CTAB RRR Abdomen soft Plan to proceed with elective surgery today All questions addressed documented in this encounter [facility] Work Phone: 03-22-2023 Note Formatting of this n ote might be different from the original. Reviewed medical history and current medications. Patient is having a local procedure and will arrive with his significant other. [facility] Work Phone: 03-21-2023 History of Present [...] MD Orthopaedic Surgeon documented in this encounter [facility] Work Phone: 07-15-2022 Evaluation note Encounter Date Diagnosis Assessment Notes Jul, Degenerative disc disease, lumbar (ICD-10 - M51.36) Mr. Rahman has improved his radicular symptomsand is no longer having pain or weakness in either leg. has been doing stretches and had intake for physical therapy but has not had any sessions at this time. has a follow-up with Dr. Yu pain management for injection on Tuesday. I independently reviewed the MRI of the lumbar spine and [id number] with the patient and his which shows [...] Jul, BMI 45.0-49.9, adult (ICD-10 - Z68.42) [employer] Other 04-06-2023 NoteCONSULTATION CONSULTATION DATE: 07/08/2022 HISTORY: [...] our patients to inform us about any iiko-yly-nyfigpm medications or herbal remedies/nutritional supplements/alternative remedies. 2. [...] treatment options with their primary care provider.[facility] [id number] Evaluation note * Encounter Date Diagnosis Assessment [...] negative findings were considered in medical decision-making. [employer] Other 2023 NotePAIN MANAGEMENT CONSULTATION CONSULTATION DATE: [...] home exercise program. He is intolerant to [place] agent. I have recommended patient a lumbosacral [...] status of his right lower extremity strength.[facility] [id number] NoteCONSULTATION CONSULTATION DATE: 05/04/2022 CHIEF COMPLAINT: Low [...] to the patient. CC: Kojo Medina M.D.[facility] [id number] History and physical note Author Yves Garcia [facility] March 21, 2022 7:59pm Note Date/Time March 21, 2022 7:59pm [facility] [address] [place] [address] Hospitalist H&P Signed Patient: Tammy Wu MR#: [id number] : 1950 Acct:[id number] Age/Sex: 72 / M Adm Date: 2 Loc: Room: [address] [place] [address] Type: ADM INOo Attending Dr: Yves Garcia DO Copies to: MD Yves Reynoso II, ~ HPI DATE OF EXAMINATION: 03/21/22 CHIEF COMPLAINT: [...] pain-free. Patient states that he saw Dr. Lion in the office on Tuesday. Their blood pressure medications were changed. It seems that spironolactone 25 mg p.o. daily was added. The patient's significant other describes that the patient washaving a tremendous amount of diuresis and she was surprised how much urine he was putting out when that medicine was added. The patient describes that [facility] [place] recently and felt short of breath so he had been concerned about his heart and is why he went to the office with Dr. Lion. The patient states that one of the problems was the [facility] sent me the wrong medications by mistake. [...] except as mentioned elsewhere in the documentation. [facility] Vacc[facility] for [facility]-19?: Yes Medical History (Updated [...] % (Auto) 26.9 % (.) 03/21/22 11:52 [place] % (Auto) 11.1 % (.) 03/21/22 11:52 Eos % (Auto) 2.7 % (.) 03/21/22 11:52 Baso % (Auto) 0.6 % (.) 03/21/22 11:52 Nucleat RBC Rel Count 0.1 /100 WBC (0-0.5) 03/21/22 11:52 Neut # (Auto) 4.2 x10E3/uL (1.8-7.7) 03/21/22 11:52 Lymph # (Auto) 1.9 x10E3/uL (1.00-4.8) 03/21/22 11:52 Traverse # (Auto) 0.8 x10E3/uL (0.0-0.8) 03/21/22 11:52 [...] <Electronically signed by Yves Garcia DO> 03/21/221958 [facility] Work Phone: 1(536) 216-786804-08-2022 Hospital Discharge instructions Patient Education 07/10/2021 11:50:59 [...] urethra. Follow these instructions at home: Take vqxs-upa-yzzhhdu and prescription medicines only as told by [...] 03/21/2006 Document Revised: 02/13/2019 Document Reviewed: 04/25/2017 [employer] Patient Education 2020 [employer]. Follow Up Care 06/12/2021 09:10:16 With:PATRICE SOTELO, Rajeev John, URL Address: [address] [place] [address]- When:07/11/2023 Comments:*PSA is ordered from Dr Medina [facility] consult note Author Colin Lion [facility] March 22, 2022 12:43pm Note Date/Time March 22, 2022 12:43pm [facility] [address] [place] [id number] Cardiology Consult Note Signed Patient: Tammy Wu MR#: [id number] : 1950 Acct:[id number] Age/Sex: 72 / M Adm Date: 2 Loc: Room: [address] [place] [address] Type: ADM INOo Attending Dr: Jakub Andrews [...] 07 at 1:30 PM. Documented By: Colin Lion MD [id number] Signed By: <Electronically signed by MD Colin Lion> 03/22/22 1243 [facility] Work Phone: Evaluation + Plan note No data available for this section [facility] Plan note Future Appointments Appointment Date:02/18/2025 11:45:00 AM Scheduled Provider:Rajeev IBRAHIM MD Location:[facility] Appointment Type:URO Office Visit [facility] [place] Evaluation note* Diagnosis Onset Date Resolution Status Atypical chest pain acute [facility] Work Phone: Evaluation note* Diagnosis Onset Date Resolution Status Accelerated hypertension acu te Atypical chest pain acute Diabetes acute [facility] Work Phone: Evaluation note* Diagnosis Carpal tunnel syndrome of right wrist- Primary documented in this encounter [facility] Work Phone: evaluation note* Diagnosis Carpal tunnel syndrome, right upper limb- Primary Carpal tunnel syndrome, right upper limb documented in this encounter [facility] Work Phone: evaluation note* Diagnosis Benign essential hypertension- Primary Essential hypertension, benign Mixed hyperlipidemia BMI 45.0-49.9, adult (Multi) Sinus bradycardia Other specified cardiac dysrhythmias Former smoker Personal history of tobacco use, presenting hazards to health White coat syndrome with hypertension documented in this encounter [facility] Work Phone: Evaluation note* Diagnosis Shortness of breath- Primary Wheezing First degree atrioventricular block Pulse irregularity Acute non-recurrent pansinusitis Insomnia, unspecified type [facility] Diagnosis Elevated brain natriuretic peptide (BNP) level- Primary documented in this [facility]* Diagnosis Type 2 diabetes mellitus without complication, with long-term current use of insulin (CMS/HCC)- Primary Benign essential hypertension (CMS/HCC) Essential hypertension, benign Prostate cancer screening Special screening for malignant neoplasm of prostate Fatty liver 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 Hypertrophy of prostate with urinary obstruction and other lower urinary tract symptoms (LUTS) Mixed hyperlipidemia (CMS/HCC) Mixed hyperlipidemia Body mass index (BMI) 45.0-49.9, adult (CMS/HCC) Screening for thyroid disorder Elevated brain natriuretic peptide (BNP) level documented [facility] this [facility] Diagnosis Routine general medical examination at health care facility- Primary Routine general medical examination at a health care facility ACP (advance care planning) Other specified counseling Type 2 diabetes mellitus with other specified complication, with long-term current use of insulin ([facility]) Type 2 diabetes mellitus with hyperglycemia ([facility]) 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[facility]) [facility] Diagnosis Type 2 diabetes mellitus with other specified complication, with long-term current use of insulin ([facility])- Primary Mixed hyperlipidemia ([facility]) Mixed hyperlipidemia Upper respiratory tract infection, unspecified type Type 2 diabetes mellitus with hyperglycemia ([facility]) 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[facility]) documented in this encounter [facility]* Diagnosis Mixed hyperlipidemia- Primary Benign essential hypertension Essential hypertension, benign Bradycardia Other specified cardiac dysrhythmias documented in this encounter [facility] Work Phone: Evaluation note* Diagnosis Benign essential hypertension ([facility])- Primary Essential hypertension, benign Type 2 diabetes mellitus with other specified complication, with long-term current use of insulin ([facility]) documented in this encounter [facility] HealthcareEvaluation note* Diagnosis Solares angioma- Primary Actinic keratosis Seborrheic keratosis Melanocytic nevus of trunk Benign neoplasm of skin of trunk, except scrotum Lentigo simplex Other dyschromia documented in this encounter [facility]* Diagnosis Type 2 diabetes mellitus with other specified complication, with long-term current use of insulin- Primary Encounter for screening for malignant neoplasm of colon OAB (overactive bladder) Tinea inguinalis Dermatophytosis of groin and perianal area Morbid (severe) obesity due to excess calories ([facility]) Body mass index (BMI) 45.0-49.9, adult ([facility]) documented in this encounter [facility]* Diagnosis Routine general medical examination at health care facility- Primary Routine general medical examination at a health care facility ACP (advance care planning) Other specified counseling Type 2 diabetes mellitus with other specified complication, with long-term current use of insulin ([facility]) Morbidly obese ([facility]) Morbid obesity Mixed hyperlipidemia Mixed hyperlipidemia Benign essential hypertension Essential hypertension, benign Statin intolerance documented in this [facility]* Diagnosis Essential (primary) hypertension- Primary Unspecified essential hypertension White coat syndrome with hypertension Sinus bradycardia Other specified cardiac dysrhythmias Junctional rhythm Other specified cardiac dysrhythmias Mixed hyperlipidemia BMI 45.0-49.9, adult (Multi) Former smoker Personal history of tobacco use, presenting hazards to health documented in this encounter [facility] Work Phone: Evaluation note* Diagnosis Benign essential hypertension- Primary Essential hypertension, benign Type 2 diabetes mellitus with other specified complication, with long-term current use of insulin (HCC) Morbidly obese (CMS-HCC) Morbid obesity BMI 40.0-44.9, adult (CMS-HCC) documented in this encounter [facility] Author Yves Garcia [facility] March 21, 2022 7:59pm Note Date/Time March 21, 2022 7:59pm [facility] [address] [place] [address] Hospitalist H&P Signed Patient: Tammy Wu MR#: [id number] : 1950 Acct:[id number] Age/Sex: 72 / M Adm Date: 2 Loc: Room: [address] [place] [address] Type: ADM INOo Attending Dr: Yves Garcia DO Copies to: MD Yves Reynoso II, ~ HPI DATE OF EXAMINATION: 03/21/22 CHIEF COMPLAINT: [...] pain-free. Patient states that he saw Dr. Lion in the office on Tuesday. Their blood pressure medications were changed. It seems that spironolactone 25 mg p.o. daily was added. The patient's significant other describes that the patient washaving a tremendous amount of diuresis and she was surprised how much urine he was putting out when that medicine was added. The patient describes that he [facility] [place] recently and felt short of breath so he had been concerned about his heart and is why he went to the office with Dr. Lion. The patient states that one of the problems was the [employer] sent me the wrong medications by mistake. It seems that this was irbesartan. He says that when [employer] sends you the noticed to get a [...] except as mentioned elsewhere in the documentation. [facility] Vaccinated for COVID-19?: Yes Medical History (Updated [...] % (Auto) 26.9 % (.) 03/21/22 11:52 Traverse % (Auto) 11.1 % (.) 03/21/22 11:52 Eos % (Auto) 2.7 % (.) 03/21/22 11:52 Baso % (Auto) 0.6 % (.) 03/21/22 11:52 Nucleat RBC Rel Count 0.1 /100 WBC (0-0.5) 03/21/22 11:52 Neut # (Auto) 4.2 x10E3/uL (1.8-7.7) 03/21/22 11:52 Lymph # (Auto) 1.9 x10E3/uL (1.00-4.8) 03/21/22 11:52 Traverse # (Auto) 0.8 x10E3/uL (0.0-0.8) 03/21/22 11:52 [...] <Electronically signed by Yves Garcia DO> 03/21/221958 [facility] Work Phone: History general Narrative - Reported* Type Description Date Medical History hypertensive heart disease Medical History diabetes mallitus Medical History hypercholesterolemia Medical History Arthritis Medical History obesity Surgical History right hip replacement Surgical History back surgery- lamiectomy 1992 Surgical History nerve ablation 2019 Surgical History tissue scan 2015 Hospitalization History See Above [employer] Other History of Present illness Narrative* Patient [...] merits of diet exercise and weight loss. [facility] 250 DO Work Phone: History of Present illness NarrativePatient returns in follow-up of problems as noted. He is done well. Management of cardiac risk factors including his hypertension diabetes and hyperlipidemia are discussed and reviewed and control appears adequate and appropriate. I did advocate the merits of diet and weight loss and its favorable impact on diabetes and hypertension. [facility] 600 DO Work Phone: Hospital Discharge instructions Additional Instructions Monitor glucose levels as before.[facility] Work Phone: Hospital Discharge instructions No data available for this section [facility] progress note Author [facility] March 22, 2022 4:06pm Note Date/Time March 22, 2022 12:52pm [facility] [address] [place] [address] Hospitalist Progress Note Signed Patient: Tammy Wu MR#: [id number] : 1950 Acct:[id number] Age/Sex: 72 / M Adm Date: 2 Loc: Room: [address] [place] [address] Type: DIS INOo Attending Dr: Jakub Andrews [...] Syringe SUBCUT 03/22/23 09:59 40 mg DAILY@10 REMA Administration Glucose 0 gm 03/21/22 19:59 Dextrose 40% Gel 15 Gm Tube PO 03/21/23 19:58 PRN PRN Hypoglycemia Hydralazine HCl 10 mg 03/21/22 19:50 03/22/22 04:41 Hydralazine 20 Mg/Ml Vial IV-PUSH 03/21/23 19:49 10 mg Q4H PRN Administration Hypertension Insulin Aspart 0 units 03/21/22 22:00 03/22/22 12:23 Insulin Aspart 300 Units/3 Ml Insuln.Pen SUBCUT 03/21/23 21:59 Not Given TID.WM.HS REMA Protocol Insulin Aspart Prota 70%/Aspart 30% 65 [...] <Electronically signed by Jakub Andrews MD> 03/22/22 7406 [facility] Work Phone: Progress note No data available for this section [facility] Summary Purpose Family History No Family History Records FoundUnknown Family Member Name Dates Details Family history [...] m ellitus: Mother(V18.0, Z83.3) Status:Active Advance Directives No Advanced Directives Records Found Advance Directive Response Recorded Date/ Time Advance [...] Discussion Completed Decision Maker: Patient Chief Complaint preetiRikkiYENIHonorio KAYODE is being seen for a 6 month follow-up of.TAMMY ADAMEMaru is being seen for a 6 month follow-up of. Chief Complaint and Reason for Visit Chief Complaint chest pain high bp Reason for Visit Atypical chest pain Chief Complaint chest pain high bp Reason for Visit Accelerated hyperten mamta Atypical chest pain Diabetes Reason for Referral Specialty Diagnoses / Procedures Referred By Contac t Referred To Contact Diagnoses Bradycardia Procedures ECG 12 Lead Colin Lion MD [address] [facility] 2, [address] [place] [address] Referral ID Status Reason Start Date Expiration Date V isits Requested Visits Authorized [id number] Authorized 10/10/2023 10/09/2024 1 1 Specialty Diagnoses / Procedures Referred By Contac t Referred To Contact Cardiology Diagnoses Mixed hyperlipidemia Procedures Follow Up In Cardiology Colin Lion MD [address], [address] [address] Ro Pendleton MD [address] [facility] 2, [address] [place] [address] Referral ID Status Reason Start Date Expiration Date V isits Requested Visits Authorized [id number] Authorized 10/10/2023 10/09/2024 1 1 Specialty Diagnoses / Procedures Referred By Contac t Referred To Contact Cardiology Diagnoses Mixed hyperlipidemia Procedures Follow Up In Cardiology Colin Lion MD [address] [facility] 2, [address] [address] Bertha Whittington, CAN LINE EXAMINER-COMMUNICATIONS LEAD [address] [facility] 2, [address] [address] Referral ID Status Reason Start Date Expiration Date V isits Requested Visits Authorized [id number] Authorized 10/10/2023 10/09/2024 1 1 Specialty Diagnoses / Procedures Referred By Contac t Referred To Contact Diagnoses Sinus bradycardia Procedures ECG 12 Lead Ro Pendleton MD [address], [address] [address] Referral ID Status Reason Start Date Expiration Date V isits Requested Visits Authorized [id number] Authorized 01/13/2024 01/12/2025 1 1 Specialty Diagnoses / Procedures Referred By Contac t Referred To Contact Cardiology Diagnoses Benign essential hypertension Procedures Follow Up In Cardiology Ro Pendleton MD [address] [facility] 2, [address] [address] Ro Pendleton MD [address] [facility] 2, [address] [place] [address] Referral ID Status Reason Start Date Expiration Date V isits Requested Visits Authorized [id number] Authorized 01/13/2024 01/12/2025 1 1 Reason evaluate and treat a neena therapy Diagnosis 1 Lumbar radiculopathy (M54.16) Referral Organization [facility] [place] Referring Provider First Name Karime Referring Provider Last Name Rashmi Referring Provider Specialty Nurse Pract itioner Referred Organization [facility] Referred Address [address] [place], [place],[address] Referred Provider Specialty Physical The rapist Referral Priority Routine General Notes FagloriagSweetie Kothari 06/25/2022 10:36:26 AM > Additional Source Comments (unrecognized sect ion and content) No Status Records FoundNo Status Records FoundNo Status Records FoundNo Status Records FoundNo Status Records FoundNo Status Records FoundNo Status Records FoundNo Status Records FoundNo Status Records FoundNo Status Records FoundNo Status Records Found INFORMATION SOURCE (unrecogn ized section and content) DATE CREATED AUTHOR 08/31/2019 [facility] DATE CREATED AUTHOR AUTHOR'S ORGANIZ ATION 06/13/2021 [facility] dical Specialist DATE CREATED AUTHOR AUTHOR'S ORGANIZ ATION 05/08/2022 [facility] DATE CREATED AUTHOR AUTHOR'S ORGANIZ ATION 08/16/2022 [facility] DATE CREATED AUTHOR AUTHOR'S ORGANIZ ATION 09/14/2022 [facility] DATE CREATED AUTHOR AUTHOR'S ORGANIZ ATION 09/14/2022 [facility] DATE CREATED AUTHOR AUTHOR'S ORGANIZ ATION 03/26/2023 [facility] DATE CREATED AUTHOR AUTHOR'S ORGANIZ ATION 10/16/2024 [facility] DATE CREATED AUTHOR AUTHOR'S ORGANIZ ATION 11/15/2024 [facility] DATE CREATED AUTHOR AUTHOR'S ORGANIZ ATION 11/20/2024 [facility] dical Specialists EPIC DATE CREATED AUTHOR AUTHOR'S ORGANIZ ATION 11/22/2024 [facility] Care Teams (unrecognized sec tion and content) Team Status: Active Member Role Status Dates Kojo Medina II MD Primary Care Provider Active Tyree Husain PA-C Emergency Provider Active Yves Garcia , DO Admit Provider, Attending Eufemia kyle Active Team Status: Active Member Role Status Dates Kojo Medina II MD Primary Care Provider Active Team Status: Inactive Member Role Status Dates Kojo Medina II MD Primary Care Provider Active Tyree Husain PA-C Emergency Provider Active Yves Garcia , DO Admit Provider Active Jakub Andrews MD Attending Provider Active Colin Lion MD Other Provider Active Stamping Press Operator Relationship Specialty Start Date End Date Kojo Medina MD [address] [place] [address] PCP - General 09/08/22 Stamping Press Operator Relationship Specialty Start Date End Date Kojo Medina MD [address] [facility] [address] [place] [address] PCP - General 09/08/22 Stamping Press Operator Relationship Specialty Start Date End Date Kojo Medina MD [address] [facility] [address] [place] [address] PCP - General 09/08/22 Stamping Press Operator Relationship Specialty Start Date End Date Kojo Medina MD [address] [place] [address] PCP - [employer] 04/04/20 Kojo Medina MD [address] [place] [address] PCP - General Internal Medicine 08/18/22 Stamping Press Operator Relationship Specialty Start Date End Date Kojo Medina MD [address] [facility] [address] [place] [address] PCP - [employer] 04/04/20 Kojo Medina MD [address] [place] [address] PCP - General Internal Medicine 08/18/22 Stamping Press Operator Relationship Specialty Start Date End Date Kojo Medina MD [address] [place] [address] PCP - [employer] 04/04/20 Kojo Medina MD [address] [place] [address] PCP - General Internal Medicine 08/18/22 Stamping Press Operator Relationship Specialty Start Date End Date Kojo Medina MD [address] [place] [address] PCP - [employer] 04/04/20 Kojo Medina MD [address] [place] [address] PCP - General Internal Medicine 08/18/22 Stamping Press Operator Relationship Specialty Start Date End Date Kojo Medina MD [address] [place] [address] PCP - [employer] 04/04/20 Kojo Medina MD [address] [place] [address] PCP - General Internal Medicine 08/18/22 Stamping Press Operator Relationship Specialty Start Date End Date Kojo Medina MD [address] [place] [address] PCP - [employer] 04/04/20 Kojo Medina MD [address] [place] [address] PCP - General Internal Medicine 08/18/22 Stamping Press Operator Relationship Specialty Start Date End Date Kojo Medina MD [address] [place] [address] PCP - [employer] 04/04/20 Kojo Medina MD [address] [place] [address] PCP - General Internal Medicine 08/18/22 Stamping Press Operator Relationship Specialty Start Date End Date Kojo Medina MD [address] [place] [address] PCP - [employer] 04/04/20 Kojo Medina MD [address] [place] [address] PCP - General Internal Medicine 08/18/22 Stamping Press Operator Relationship Specialty Start Date End Date Kojo Medina MD [address] [place] [address] PCP - [employer] 04/04/20 Kojo Medina MD [address] [place] [address] PCP - General Internal Medicine 08/18/22 Stamping Press Operator Relationship Specialty Start Date End Date Kojo Medina MD [address] [place] [address] PCP - General 09/08/22 Stamping Press Operator Relationship Specialty Start Date End Date Kojo Medina MD [address] [place] [address] PCP - [employer] 04/04/20 Kojo Medina MD [address] [place] [address] PCP - General Internal Medicine 08/18/22 Stamping Press Operator Relationship Specialty Start Date End Date Kojo Medina MD [address] [place] [address] PCP - [employer] 04/04/20 Kojo Medina MD [address] [place] [address] PCP - General Internal Medicine 08/18/22 Stamping Press Operator Relationship Specialty Start Date End Date Kojo Medina MD [address] [place] [address] PCP - [employer] 04/04/20 Kojo Medina MD [address] [place] [address] PCP - General Internal Medicine 08/18/22 Stamping Press Operator Relationship Specialty Start Date End Date Kojo Medina MD [address] [place] [address] PCP - [employer] 04/04/20 Kojo Medina MD [address] [place] [address] PCP - General Internal Medicine 08/18/22 Stamping Press Operator Relationship Specialty Start Date End Date Kojo Medina MD [address] [place] [address] PCP - General 09/08/22 Stamping Press Operator Relationship Specialty Start Date End Date Kojo Medina MD [address] [facility] [address] [place] [address] PCP - [employer] 04/04/20 Kojo Medina MD [address] [facility] [address] [place] [address] PCP - General Internal Medicine 08/18/22 Stamping Press Operator Relationship Specialty Start Date End Date Kojo Medina MD [address] [facility] [address] [place] [address] PCP - [employer] 04/04/20 Kojo Medina MD [address] [facility] [address] [place] [address] PCP - General Internal Medicine 08/18/22 Goals (unrecognized section and content) Goals may be documented in a n alternate section REASON FOR VISIT (unrecogniz ed section and content) Reason Comments Pain New Patient VisitFin lety numbness Specialty Diagnoses / Procedures Referred By Elise olsen Referred To Contact Diagnoses Carpal tunnel syndrome, right upper limb Carpal tunnel syndrome, right upper limb [G56.01] Procedures CT NEUROPLASTY &/TRANSPOS MEDIAN NRV CARPAL TUNNE Decompression Median Nerve with Carpal Tunnel Release; weighs 3++ and is a diabetic Sera Oswald MD [address] [facility], [address] [place] [address] [address] Referral ID Status Reason Start Date Expiration Date Visits Re quested Visits Authorized [id number] 1 1 Reason Comments Follow-up 6 month Specialty Diagnoses / Procedures Referred By Elise olsen Referred To Contact Cardiology Diagnoses Mixed hyperlipidemia Procedures Follow Up In Cardiology Colin Lion MD Retired From Practice Ro Pendleton MD [address] [place] [address] Referral ID Status Reason Start Date Expiration Date V isits Requested Visits Authorized [id number] Authorized 10/10/2023 10/09/2024 1 1 Reason Comments Shortness of Breath Reason Comments Results Reason Comments Medicare Annual Wellness Visit Subsequen t Med Refill Maxzide--[facility] t[facility] fin Reason Comments Diabetes Reason Comments Annual Exam Specialty Diagnoses / Procedures Referred By Contac t Referred To Contact Diagnoses Bradycardia Procedures ECG 12 Lead Colin Lion MD [address] [place] [address] Referral ID Status Reason Start Date Expiration Date V isits Requested Visits Authorized [id number] Authorized 10/10/2023 10/09/2024 1 1 Reason Comments Diabetes Pt started metformin and trulicity--used the trulicity then recently went back to the ozempic he had at home--pt states his ins co notified him as of apr 04 2024 ozempic should be covered for him Reason Comments Skin Check Reason Comments Diabetes Rash Urinary Frequency Reason Comments Medicare Annual Wellness Visit Subsequen t Med Refill Flexeril--[facility] ffin Reason Comments Follow-up 9 month Follow up fo r Hypertension Specialty Diagnoses / Procedures Referred By Contac t Referred To Contact Cardiology Diagnoses Benign essential hypertension Procedures Follow Up In Cardiology Ro Pendleton MD [address] [place] [address] Phone: tel: fax: Ro Pendleton MD [address] [place] [address] Phone: tel: fax: Referral ID Status Reason Start Date Expiration Date V isits Requested Visits Authorized [id number] Authorized 01/13/2024 01/12/2025 1 1 PRN Active and Recently Administ ered Medications (unrecognized section and content) Medication Order 03/22/2023 03/23/2023 03/24/2023 sodium chloride 0.9 % irrigation solution (CANCELED) As needed, Starting on Mari 03/24/23 at 0712, Intraprocedure 0712 (Given - Provid er: Sera Mayen MD) FOR RECORDS PERTAINING TO PATIENTS WHO [...] BE BASED ON THE PRIMARY CLINICAL RECORDS. [facility] provides no warranty or guarantee of the accuracy or completeness of information in this document.
== END 2024-12-05 14:03 | disposition home or self-care (01) ==
LOC: PM 14:03
PROVIDERS: PCP Internal Medicine; Visit Provider Nurse Practitioner
DX: M47.816 Spondylosis without myelopathy or radiculopathy, lumbar region (principal); M46.1 Sacroiliitis, not elsewhere classified; M79.18 Myalgia, other site; E11.8 Type 2 diabetes mellitus with unspecified complications
CPT/HCPCS: G0463

== ENCOUNTER 2024-12-07 10:43 | Outpatient (OUT) | payer MEDICARE, SELFPAY ==
--- OUTSIDE RECORDS SUMMARY | 2024-12-07 10:57 | XMS_ITS | CCD ---
Author Organization [facility] Care Team Providers Care Rn Documentation Name Role Phone KOJO MEDINA Primary Care Physician Update Needed Unavailable Unavailable Unavailable Unavailable EUGENIA Medina Primary Care Provider [phone] LETICIA Husain Emergency Provider [phone] DO Yves Garcia Admit Provider DO Yves Garcia Attending Provider [phone] MD Jakub Andrews Attending Provider [phone] MD Colin Lion Other Provider [phone] Jakub Andrews Attending Unavailable Colin Lion Consulting [...] BAXTER Primary Care Unavailable SWEENEY ., DR AGUIALR Lipscomb Attending Unavailable SWEENEY ., DR AGUILAR [...] Unavailable LAKSHMIPATHY ., NATALIE Consulting Anabella vailable ADMA, DR BAXTER Primary Care Unavailable LAKSHMIPATHY ., [...] Unavail able SERA OSWALD Attending Unavail able OKJO MEDINA Primary Care Unavailable Kojo Medina MD [...] Translations: [METFORMIN HCL] Drug Allergy 3 Diarrhea [facility] Work Phone: (6 sources) Animal Dander; Translations: [ANIMAL DANDER] Propensity to adverse reactions 3 Shortness of breath, Itching, Rash [facility] (20 sources) Tetanus Toxoid, Adsorbed Propensity to adverse reactions 4 Other [facility] (2 sources) atorvastatin; Translations: [ATORVASTATIN] Drug Allergy 5 Myalgia [facility] (1 source) Horses; Translations: [Horses] Propensity to adverse reactions (disorder) [facility] Repository Medications Current Medications Medication Drug [...] by mouth once daily. Active Continuous Glucose Jawbone Puller (FreeStyle Radha 3 [place]) device (8 sources) Start: 08-28-2024 Continuous Glucose Jawbone Puller (FreeStyle Radha 3 [place]) device Indications: Type 2 diabetes mellitus with other specified complication, with long-term current use of insulin (HCC) USE DIRECTED 1 each 08/28/2024 Active Start: 08-02-2024 Continuous Glu cose Jawbone Puller (FreeStyle Radha 3 [place]) device Indications: Type 2 diabetes mellitus with other specified complication, with long-term current use of insulin 1 Device continuously 1 each 08/02/2024 Active Continuous Glucose Sensor (FreeStyle Radha 3 Sensor) misc (8 sources) Start: 08-02-2024 apply 1 dose transdermal route once Continuous Glucose Sensor (FreeStyle Radha 3 Sensor) [facility] Indications: Type 2 diabetes mellitus with other specified complication, with long-term current use of insulin (HCC) Apply 1 patch topically every 14 (fourteen) days 2 each 08/02/2024 Active Start: 08-02-2024 apply 1 dose transde rmal route once Continuous Glucose Sensor (FreeStyle Radha 3 Sensor) [facility] Indications: Type 2 diabetes mellitus with other [...] long-term current use of insulin ([facility]) Take 1 tablet (10 mg) by mouth every 8 (eight) hours if needed for muscle spasms 60 tablet 2 09/17/2024 Active dapagliflozin 10 mg oral tablet (2 sources) Sodium-Glucose Cotransporter 2 Inhibitor Start: 11-19-2024 take 1 tablet by mouth once daily Farxiga 10 MG Indications: Type 2 diabetes mellitus with other specified complication, with long-term current use of insulin ([facility]) Take 1 tablet (10 mg) by mouth Daily 30 tablet 5 11/19/2024 Active Start: 11-19-2024 take 1 tablet by yenni th once daily Farxiga 10 MG Indications: Type 2 diabetes mellitus with other specified complication, with long-term current use of insulin ([facility]) Take 1 tablet (10 mg) by [...] complication, with long-term current use of insulin ([facility]) Inject 2 mg under the skin [...] Agonist Start: 06-13-2019 End: 10-10-2023 Liraglutide (Victoza 2-Jules) 0.6 mg/0.1 mL (18 [...] mellitus with other specified complication, unspecified whether retirement insulin use (HCC) Inject 0.5 mg under [...] complication, with long-term current use of insulin ([facility]) Inject 0.75 mg under the skin [...] Translations: [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[facility])] 02-17-2024 Chronic Mycoses (2 sources) Tinea cruris; Translations: [Tinea cruris] 08-02-2024 Episodic Osteoarthritis (20 sources) Arthritis; Translations: [Osteoarthritis of left hip joint] Onset: 09-01-2022 06-13-2019 Chronic Other aftercare (1 source) terminal carman (current) use of insulin; Translations: [INTERMEDIATE CURRENT USE OF INSULIN] Onset: 07-22-2022 Episodic [...] By: #### 6 517 #### [facility] [address], [address] [place] [address] Relief Manager: Luigi Grace MD ALBUMIN/CREATININE RATIO, RANDOM URINE [...] category. Performed By: #### 6 517 #### [facility] [address], [address] [place] [address] Relief Manager: Lugii Grace MD Creatinine (U) [Mass/Vol] 60 mg/dL Normal 20-320 [facility] Comment on above: Performed By: #### 6 517 #### [facility] [address], [address] [place] [address] Relief Manager: Luigi Grace MD Laboratory - Hematology and Cell countson 11-19-2024 HbA1c (Bld) [Mass fraction] 11 % [facility] No Panel Informationon 11-19 Interpretation and review of laboratory results Abnormal [facility] Ambulatory Visit Summaryon 0 11-14-2024 Ambulatory Visit [...] Rajeev IBRAHIM MD Where: [facility] [address] [place] [address]- You Need to Schedule the Following Appointments Follow Up with PATRICE SOTELO, Rajeev John, URL When: Comments: 4 mos (new med) Where: [address] [place] [address] Medications What How Much When Instructions New mirabegron (mirabegron 50 mg oral tablet, extended release) 1 Tablets By Mouth Every day Refills: 11 Pickup at [facility] Unchanged aspirin (aspirin 81 mg [...] physician if questions or concerns Pharmacy Information [facility]: [address] [place], [place] [id number] [phone] Allergies Horses (Unknown) Problems Ongoing - Any problem that you are currently receiving treatment for. Arthritis BPH with urinary obstruction Diabetes HTN (hypertension) Hx of retirement use of blood thinners Microhematuria Morbid obesity [...] signs o (more content not included)... Normal [facility] Urology Office/Clinic Noteon 11-14-2024 Urology Office/Clinic Note [...] Contact Information PATRICE SOTELO, Rajeev John, URL [address] [place] [address] [place] [address] Additional Instructions: 4 mos (new med) Patient Education Overactive Bladder, Adult I, Ai Medina, personally scribed for Dr. Ibrahim on 11/14/2024 09:09:06. . Documentation recorded by the scribe, Ai Medina, accurately reflects the services(s) I performed and decisions made by me. Authenticated by Dr. Ibrahim on 11/14/2024 09:10:21. 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 Normal [facility] Comment on above: Result Comment: Elec tronically Signed By: Rajeev IBRAHIM MD\.br\Date and Time Signed: 11/14/24 09:10 EDT\.br\Electronically Co-Signed By: Ai Medina\.br\Date and Time Co-Signed: 11/14/24 09:09 EDT ECG 12 Leadon 10-12-2024 Sinus bradycardia wi th heart rate 47 [facility] Work Phone: Laboratory - Hematology and Cell countson 09-17-2024 HbA1c (Bld) [Mass fraction] 10.4 % [facility] No Panel Informationon 09-17 [facility] Laboratory - Hematology and Cell countson 08-02-2024 HbA1c (Bld) [Mass fraction] 11.9 % [facility] No Panel Informationon 08-02 [facility] No Panel InformationOrdered By: Rosy Sheppard on 07-17-2024 [facility] Laboratory - Hematology and Cell countson 03-22-2024 HbA1c (Bld) [Mass fraction] 11.8 % [facility] No Panel Informationon 03-22 [facility] Laboratory - Hematology and Cell countson 02-17-2024 HbA1c (Bld) [Mass fraction] 11.2 % [facility] No Panel Informationon 02-16 [facility] CBC (H/H, RBC, INDICES, WBC, PLT)on 02-02-2024 Erythrocyte distribution width (RBC) [Ratio] 13.9 % Normal 11.0-15.0 [facility] Comment on above: Performed By: #### 3 9135, 9841, 1111, 58214, 2600 #### [facility] [address], [address] [place] [address] Relief Manager: Luigi Grace MD Hematocrit (Bld) [Volume fraction] 51.3 % High 38.5-50.0 [facility] Comment on above: Performed By: #### 3 6127, 7600, 5363, 43307, 1759 #### [facility] [place] [address] Relief Manager: Luigi Grace MD Hemoglobin (Bld) [Mass/Vol] 16.5 g/dL Normal 13.2-17.1 [facility] Comment on above: Performed By: #### 3 6127, 7600, 5363, 70452, 1759 #### [facility] [place] [address] Relief Manager: Luigi Grace MD MCH (RBC) [Entitic mass] 32.2 pg Normal 27.0-33.0 [facility] Comment on above: Performed By: #### 3 61, 7600, 5363, 10741, 175 #### [facility] [place] [address] Relief Manager: Luigi Grace MD MCHC (RBC) [Mass/Vol] 32.2 g/dL Normal 32.0-36.[address] [facility] Comment on above: Result Comment: For adults, a slight decrease in the calculated MCHC value (in the range of 30 to 32 g/dL) is most likely not clinically significant; however, it should be interpreted with caution in correlation with other red cell parameters and the patient's clinical condition. Performed By: #### 3 61, 7600, 5363, 98012, 1759 #### [facility] [place] [address] Relief Manager: Luigi Grace MD MCV (RBC) [Entitic vol] 100.0 fL Normal 80.0-100.0 [facility] Comment on above: Performed By: #### 3 6127, 7600, 5363, 41425, 1759 #### [facility] [address] [place] [address] Relief Manager: Luigi Grace MD Platelet mean volume (Bld) [Entitic vol] 9.2 fL Normal 7.5-12.5 [facility] Comment on above: Performed By: #### 3 6127, 7600, 5363, 78720, 1759 #### [facility] [place] [address] Relief Manager: Luigi Grace MD Platelets (Bld) [#/Vol] 306 10*3/uL Normal 140-400 [facility] Comment on above: Performed By: #### 3 6127, 7600, 5363, 10521, 1759 #### [facility] [place] [address] Relief Manager: Luigi Grace MD RBC (Bld) [#/Vol] 5.13 10*6/uL Normal 4.20-5.80 [facility] Comment on above: Performed By: #### 3 6127, 7600, 5363, 16735, 1759 #### [facility] [place] [address] Relief Manager: Luigi Grace MD WBC (Bld) [#/Vol] 10.1 10*3/uL Normal 3.8-10.8 [facility] Comment on above: Performed By: #### 3 6127, 7600, 5363, 97776, 1759 #### [facility] [place] [address] Relief Manager: Luigi Grace MD [facility] METABOLIC [facility] 02-02-2024 Albumin [Mass/Vol] 4.5 g/dL Normal 3.6-5.1 [facility] Comment on above: Performed By: #### 3 6127, 7600, 5363, 79304, 1759 #### [facility] [place] [address] Relief Manager: Luigi Grace MD Albumin/Globulin [Mass ratio] 1.2 {ratio} Normal 1.0-2.5 [facility] Comment on above: Performed By: #### 3 6127, 7600, 5363, 64033, 1759 #### [facility] [place] [address] Relief Manager: Luigi Grace MD ALP [Catalytic activity/Vol] 136 U/L Normal 35-144 [facility] Comment on above: Performed By: #### 3 6127, 7600, 5363, 29386, 1759 #### [facility] [place] [address] Relief Manager: Luigi Grace MD ALT [Catalytic activity/Vol] 97 U/L High 9-46 [facility] Comment on above: Performed By: #### 3 6127, 7600, 5363, 65541, 1759 #### [facility] [place] [address] Relief Manager: Luigi Grace MD AST [Catalytic activity/Vol] 55 U/L High 10-35 [facility] Comment on above: Performed By: #### 3 61, 7600, 5363, 42609, 175 #### [facility] [place] [address] Relief Manager: Luigi Grace MD Bilirubin [Mass/Vol] 0.8 mg/dL Normal 0.2-1.2 [facility] Comment on above: Performed By: #### 3 6127, 7600, 5363, 40688, 175 #### [facility] [place] [address] Relief Manager: Luigi Grace MD Calcium [Mass/Vol] 11.2 mg/dL High 8.6-10.3 [facility] Comment on above: Performed By: #### 3 6127, 7600, 5363, 25270, 1759 #### [facility] [place] [address] Relief Manager: Luigi Grace MD Chloride [Moles/Vol] 97 mmol/L Low 98-110 [facility] Comment on above: Performed By: #### 3 6127, 7600, 5363, 32549, 1759 #### [facility] [place] [address] Relief Manager: Luigi Grace MD CO2 [Moles/Vol] 27 mmol/L Normal 20-32 [facility] Comment on above: Performed By: #### 3 6127, 7600, 5363, 79633, 1759 #### [facility] [place] [address] Relief Manager: Luigi Grace MD Creatinine [Mass/Vol] 1.28 mg/dL Normal 0.70-1.[address] [facility] Comment on above: Performed By: #### 3 6127, 7600, 5363, 22349, 1759 #### [facility] [place] [address] Relief Manager: Luigi Grace MD GFR/1.73 sq M.predicted among non-blacks MDRD (S/P/Bld) [Vol rate/Area] 59 mL/min/{1.73_m2} Low > OR = 60 [facility] Comment on above: Performed By: #### 3 6127, 7600, 5363, 59520, 1759 #### [facility] [place] [address] Relief Manager: Luigi Grace MD Globulin (S) [Mass/Vol] 3.7 g/dL Normal 1.9-3.7 [facility] Comment on above: Performed By: #### 3 6127, 7600, 5363, 12219, 1759 #### [facility] [place] [address] Relief Manager: Luigi Grace MD Glucose [Mass/Vol] 268 mg/dL High 65-99 [facility] Comment on above: Result Comment: Fasting reference interval For someone without known diabetes, a glucose value >125 mg/dL indicates that they may have diabetes and this should be confirmed with a follow-up test. Performed By: #### 3 6127, 7600, 5363, 26833, 1759 #### [facility] [place] [address] Relief Manager: Luigi Grace MD Potassium [Moles/Vol] 5.4 mmol/L High 3.5-5.[address] [facility] Comment on above: Performed By: #### 3 6127, 7600, 5363, 61488, 1759 #### [facility] [place] [address] Relief Manager: Luigi Grace MD Protein [Mass/Vol] 8.2 g/dL High 6.1-8.1 [facility] Comment on above: Performed By: #### 3 6127, 7600, 5363, 63677, 1759 #### [facility] [place] [address] Relief Manager: Luigi Grace MD Sodium [Moles/Vol] 135 mmol/L Normal 135-146 [facility] Comment on above: Performed By: #### 3 6127, 7600, 5363, 57705, 1759 #### [facility] [place] [address] Relief Manager: Luigi Grace MD Urea nitrogen [Mass/Vol] 42 mg/dL High 7-25 [facility] Comment on above: Performed By: #### 3 6127, 7600, 5363, 32846, 1759 #### [facility] [place] [address] Relief Manager: Luigi Grace MD Urea nitrogen/Creatinine [Mass ratio] 33 mg/mg High 6-22 [facility] Comment on above: Performed By: #### 3 6127, 7600, 5363, 09491, 1759 #### [facility] [place] [address] Relief Manager: Luigi Grace MD LIPID PANEL, [facility] 10-3 Cholesterol [Mass/Vol] 171 mg/dL Normal <200 [facility] Comment on above: Performed By: #### 3 6127, 7600, 5363, 58942, 1759 #### [facility] [address], [address] [place] [address] Relief Manager: Luigi Grace MD Cholesterol in HDL [Mass/Vol] 39 mg/dL Low > OR = 40 [facility] Comment on above: Performed By: #### 3 6127, 7600, 5363, 42256, 1759 #### [facility] [address], [address] [place] [address] Relief Manager: Luigi Grace MD Cholesterol in LDL [Mass/Vol] [...] LDL-C. Javed HYDE et al. VERONICA. 2013;310(19): 3846-0194 (http://education.Infinite.ly.Nomesia/faq/SZW156) Performed By: #### 3 6127, 7600, 5363, 18190, 1759 #### [facility] [address], [address] [place] [address] Relief Manager: Luigi Grace MD Cholesterol.total/Chol esterol in HDL [Mass ratio] 4.4 {ratio} Normal <5.0 [facility] Comment on above: Performed By: #### 3 6127, 7600, 5363, 75900, 1759 #### [facility] [address], [address] [place] [address] Relief Manager: Luigi Grace MD NON HDL CHOLESTEROL 132 mg/dL (calc) High <130 [facility] Comment on above: Result Comment: For patients with diabetes plus 1 major ASCVD risk factor, treating to a non-HDL-C goal of <100 mg/dL (LDL-C of <70 mg/dL) is considered a therapeutic option. Performed By: #### 3 6127, 7600, 5363, 16898, 1759 #### [facility] [address], [address] [place] [address] Relief Manager: Luigi Grace MD Triglyceride [Mass/Vol] 220 mg/dL High <150 [facility] Comment on above: Result Comment: If a non-fasting specimen was collected, consider repeat triglyceride testing on a fasting specimen if clinically indicated. Livier et al. J. of Clin. Lipidol. 2015;9:129-169. Performed By: #### 3 6127, 7600, 5363, 82657, 1759 #### [facility] [place] [address] Relief Manager: Luigi Grace MD PSA, TOTALon 02-02-2024 PSA, [...] Performed By: #### 3 6127, 7600, 5363, 75754, 1759 #### [facility] [address], [address] [place] [address] Relief Manager: Luigi Grace MD TSH W/REFLEX TO FT4on 2023 TSH W/REFLEX TO FT4 2.43 mIU/L Normal 0.40-4.50 [facility] Comment on above: Performed By: #### 3 6127, 7600, 5363, 69198, 1759 #### [facility] [address], [address] [place] [address] Relief Manager: Luigi Grace MD ECG 12 Leadon 01-13-2024 Junctional rhythm wi th retrograde P wave [facility] Work Phone: Laboratory - Hematology and Cell countson 12-21-2023 HbA1c (Bld) [Mass fraction] 10.2 % [facility] No Panel Informationon 12-20 [facility] ECG 12 Leadon 10-10-2023 Junctional rhythm ra te 41 bpm Underlying severe sinus bradycardia QTc 341 ms [facility] Work Phone: Office Visit (Cardiology)on 09-08-2022 Follow-up [...] Recorded: 08Sep2022 10:06AM Heart Rate40, R Radial [id number], RUE, Sitting [id number], RUE, Sitting Height5 ft 7 in Cihmhf062 lb BMI Umfkzznxzy02.52 kg/m2 BSA Calculated2.39 Tobacco Useb) No PHQ-2 [...] Sep 08 2022 5:13PM EST (Author) Normal Store Eyes Tobacco Screening.on 023 Adult depression screening assessment No [facility] Parameter 600 DO Work Phone: Fall risk assessment a) No falls within the last year [facility] CenterRing[facility] k 600 DO Work Phone: Tobacco use status [facility] b) No [facility] k 600 DO Work Phone: PROF CHEM 8 (BAS METB)on Anion gap [Moles/Vol] 19.1 mmol/L Normal [facility] Comment on above: Performed By: #### B MP #### [facility] [address] [place] [address] Dr. Rubens Rodriguez Calcium [Mass/Vol] 9.6 mg/dL Normal 8.5-10.1 [facility] Comment on above: Performed By: #### B MP #### [facility] [address] [place] [address] [address] Rubens Rodriguez Chloride [Moles/Vol] 111 mmol/L Critically high 98-107 [facility] Comment on above: Performed By: #### B MP #### [facility] [address] [place] [address] [address] Rubens Rodriguez CO2 [Moles/Vol] 16.6 mmol/L Critically low 21.0-32.0 [facility] Comment on above: Performed By: #### B MP #### [facility] [address] [place] [address] [address] Rubens Rodriguez Creatinine [Mass/Vol] 1.32 mg/dL Critically high 0.70-1.30 [facility] Comment on above: Performed By: #### B MP #### [facility] [address] [place] [address] [address] Rubens Rodriguez EGFR-AF GUYANESE >60 Normal >=60 [facility] Comment on above: Performed By: #### B MP #### [facility] [address] [place] [address] [address] Rubens Rodriguez EGFR-NON AF GUYANESE 53 mL/min/1.73m2 Critically low >=60 [facility] Comment on above: Performed By: #### B MP #### [facility] [address] [place] [address] [address] Rubens Rodriguez Glucose [Mass/Vol] 139 mg/dL Critically high 74-106 [facility] Comment on above: Performed By: #### B MP #### [facility] [address] [place] [address] [address] Rubens Rodriguez Potassium [Moles/Vol] 6.5 mmol/L Critically high 3.5-5.1 [facility] Comment on above: Performed By: #### B MP #### [facility] [address] [place] [address] [address] Rubens Rodriguez Sodium [Moles/Vol] 135 mmol/L Critically low 136-145 [facility] [place] [facility] Comment on above: Performed By: #### B MP #### [facility] [address] [place] [address] [address] Rubens Rodriguez Urea nitrogen [Mass/Vol] 52.0 mg/dL Critically high 7.0-18.0 [facility] Comment on above: Performed By: #### B MP #### [facility] [address] [place] [address] [address] Rubens Rodriguez Urea nitrogen/Creatinine [Mass ratio] 39.4 mg/mg Normal [facility] Comment on above: Performed By: #### B MP #### [facility] [address] [place], [place] [address] Dr. Rubens Rodriguez POINT OF CARE GLUCOSEon - Glucose [Mass/Vol] 201 mg/dL Critically high 74-106 [facility] Comment on above: Performed By: #### P OCGLUC #### [facility] [address] [place] [address] [address] Rubens Rodriguez MRI LSPINE WO W [...] by: TAMMY DANIELLE Date: 2022-07-02 13:42 Normal [facility] XR LSPINE W_OBLS AND FLEX_EX Ton 06-15-2022 [...] by: JOYA MCRAE Date: 2022-06-15 16:45 Normal [facility] XR LSPINE MIN 4 VIEWSon 04-05 XR [...] by: JOYA MCRAE Date: 2022-04-30 14:23 Normal [facility] A1C with Estimated Average G ziyad 03-22-2022 Glucose [Mass/Vol] 154 mg/dL Normal [facility] Comment on above: Result Comment: PERF ORMED BY: [facility] [address] [place] [address] PATHOLOGIST DRIVER LICENSE REVIEWING OFFICER YAMILET BACK M.D. Performed By: #### C K, CKMB, HS TROP #### [facility] [address] HbA1c (Bld) [Mass fraction] 7.0 % High 4.3-5.6 [facility] Comment on above: Result Comment: Incr eased risk for diabetes: 5.7 - 6.4 diabetes: >6.4 glycemic control for adults with diabetes: <7.0 Performed By: #### C K, CKMB, HS TROP #### [facility] [address] Cholesterol [Mass/volume] in Serum or PlasmaOrdered By: Yves Garcia on 03-22-2022 Cholesterol [Mass/Vol] 125 mg/dL 140-200 [facility] Comment on above: Chol less than 200 m g/dl low riskChol 201-239 mg/dl borderline riskChol 240 mg/dl and greater high risk Cholesterol in LDL Calc [Mas s/Vol]Ordered By: Yves Garcia on 03-22-2022 Cholesterol in LDL [Mass/Vol] 59 mg/dL 0-100 [facility] Comment on above: LDL ATP III CLASSIFI CATIONLDL less than 100 mg/dL OptimalLDL 100-129 mg/dL Near or above optimalLDL 130-159 mg/dL Borderline highLDL 160-189 mg/dL HighLDL greater than 189 mg/dL Very high Cholesterol in VLDL Calc [Ma ss/Vol]Ordered By: Yves Garcia on 03-22-2022 Cholesterol in VLDL [Mass/Vol] 31 mg/dL [facility] Creatine Kinaseon 03-22-2022 CK [Catalytic activity/Vol] 96 U/L Normal - [facility] Comment on above: Performed By: #### C K, CKMB, HS TROP #### [facility] [address] [id number] [place] CK [Catalytic activity/Vol] 103 U/L Normal 22-269 [facility] Comment on above: Performed By: #### C K, CKMB, HS TROP #### [facility] [address] Creatine kinase [Enzymatic a ctivity/volume] in Serum or PlasmaOrdered By: Yves Garcia on 03-22-2022 CK [Catalytic activity/Vol] 96 U/L [facility] Creatinine Kinase MBon 03-22 CK.MB [Mass/Vol] 1.7 ng/mL Normal 0.6-6.3 [facility] Comment on above: Performed By: #### C K, CKMB, HS TROP #### [address] CKMB Relative Index 1.7 % Normal 0.00-2.50 [facility] Comment on above: Performed By: #### C K, CKMB, HS TROP #### [facility] [address] CK.MB [Mass/Vol] 2.1 ng/mL Normal 0.6-6.3 [facility] Comment on above: Performed By: #### C K, CKMB, HS TROP #### [address] CKMB Relative Index 2.0 % Normal 0.00-2.50 [facility] Comment on above: Performed By: #### C K, CKMB, HS TROP #### [place] [address] [place] ECG 12 lead ECGon 03-22-2022 ECG 12 lead ECG [facility] [place] [address] [place] [address] Electrocardiograph Report Signed Patient: Tammy Wu MR#: [id number] [birth year] : 1950 Acct:[id number] Age/Sex: 72 / M ADM Date: 03/21/22 Loc: Room: [address] [place] [address] Type: DIS INOo Attending Dr: Jakub Andrews [...] MUS Signed By Mercedes Hilliard DO 03/24 [facility] Glucose Glucometer (BldC) [M ass/Vol]Ordered By: Jakub Andrews on 03-22-2022 Glucose [Mass/Vol] 159 mg/dL [facility] Comment on above: Random Glucose Refer ence Range is dependent on time and content of last meal. Glucose of more than 200 mg/dL in a nonstressed, ambulatory subject supports the diagnosis of Diabetes Mellitus. Glucose Poct Glucometerson 1 05-23-2021 Commemt1 Glu2: Cleaned Meter [facility] Comment on above: Result Comment: PERF ORMED BY: [place] [address] PATHOLOGIST DRIVER LICENSE REVIEWING OFFICER YAMILET BACK M.D. Performed By: #### Ralph Mahoney, CKMB, TROP #### [facility] [address] [place] [address] Glucose [Mass/Vol] 159 mg/dL [facility] Comment on above: Result Comment: [place] om Glucose Reference Range is dependent on time and content of last meal. Glucose of more than 200 mg/dL in a nonstressed, ambulatory subject supports the diagnosis of Diabetes Mellitus. Performed By: #### C K, CKMB, HS TROP #### [facility] [address] [place] [address] Commemt1 Glu2: Cleaned Meter [facility] Comment on above: Result Comment: PERF ORMED BY: [place] [address] PATHOLOGIST DRIVER LICENSE REVIEWING OFFICER YAMILET BACK M.D. Performed By: #### Ralph Mahoney, CKSTEFFANY, HS TROP #### [facility] [address] [place] [address] [place] Glucose [Mass/Vol] 154 mg/dL Normal [facility] Comment on above: Result Comment: [place] om Glucose Reference Range is dependent on time and content of last meal. Glucose of more than 200 mg/dL in a nonstressed, ambulatory subject supports the diagnosis of Diabetes Mellitus. Performed By: #### LUKE Mendoza, HS TROP #### [facility] [address] [place] [address] [place] Glucose [Mass/Vol] 137 mg/dL Normal [facility] Comment on above: Result Comment: [place] om Glucose Reference Range is dependent on time and content of last meal. Glucose of more than 200 mg/dL in a nonstressed, ambulatory subject supports the diagnosis of Diabetes Mellitus. PERFORMED BY: [place] [address] PATHOLOGIST DRIVER LICENSE REVIEWING OFFICER YAMILET BACK M.D. Performed By: #### LUKE Mendoza, HS TROP #### [address] Glucose mean value [Mass/vol ume] in Blood Estimated from glycated hemoglobinOrdered By: Yves Garcia on 03-22-2022 Average glucose Estimated from glycated hemoglobin (Bld) [Mass/Vol] 154 mg/dL [facility] Hemoglobin A1c percentageOrd ered By: Yves Garcia on 03-22-2022 HbA1c (Bld) [Mass fraction] 7.0 % 4.3-5.6 [facility] Comment on above: Increased risk for d iabetes: 5.7 - 6.4diabetes: >6.4glycemic control for adults with diabetes: <7.0 Lipid Panelon 03-22-2022 Cholesterol [Mass/Vol] 125 mg/dL Low 140-200 [facility] Comment on above: Result Comment: Chol less than 200 mg/dl low risk Chol 201-239 mg/dl borderline risk Chol 240 mg/dl and greater high risk Performed By: #### C K, CKMB, HS TROP #### [facility] [address] Cholesterol in HDL [Mass/Vol] 34 mg/dL Normal 29-71 [facility] Comment on above: Result Comment: HDL CHOL ATP-III CLASSIFICATION Cardiovascular Risk HDL > or equal to 60 mg/dL LOW HDL < 40 mg/dL HIGH Performed By: #### C K, CKMB, HS TROP #### [facility] [address] Cholesterol.total/Chol esterol in HDL [Mass ratio] 3.7 {ratio} Normal <5.0 [facility] Comment on above: Result Comment: PERF ORMED BY: [place] [address] PATHOLOGIST DRIVER LICENSE REVIEWING OFFICER YAMILET BACK M.D. Performed By: #### C K, CKMB, HS TROP #### [facility] [address] LDL Cholesterol,Calculated 59 mg/dL Normal 0-100 [facility] Comment on above: Result Comment: LDL ATP III CLASSIFICATION LDL less than 100 mg/dL Optimal LDL 100-129 mg/dL Near or above optimal LDL 130-159 mg/dL Borderline high LDL 160-189 mg/dL High LDL greater than 189 mg/dL Very high Performed By: #### C K, CKMB, HS TROP #### [facility] [address] [place] [address] [place] Triglyceride w/Reflex 158 mg/dL High 35-149 [facility] Comment on above: Result Comment: TRIG ATP III CLASSIFICATION TRIG less than 150 mg/dL Normal TRIG 150-199 mg/dL Borderline high TRIG 200-500 mg/dL High TRIG greater than 500 mg/dL Very high Standard traceable to the Center for Disease Conrtrol and Prevention (CDC) test method. Performed By: #### C K, CKMB, HS TROP #### [facility] [address] VLDL CHOLESTEROL 31 mg/dL Normal [facility] Comment on above: Performed By: #### C K, CKMB, HS TROP #### [facility] [address] No Panel InformationOrdered By: Jakub Andrews on 03-22-2022 Bedside Glucose Comment Glu2: cleaned meter [facility] Serum or plasma creatine kin ase MB (CKMB)/total creatine kinase (CK) ratio by calculaOrdered By: Yves Garcia on 03-22-2022 CK.MB Calc [Catalytic fraction] 1.7 % 0.00-2.50 [facility] Serum or plasma creatine kin ase MB measurement (mass/volume)Ordered By: Yves Garcia on 03-22-2022 CK.MB [Mass/Vol] 1.7 ng/mL 0.6-6.3 [facility] Serum or plasma high density lipoprotein (HDL) cholesterol measurementOrdered By: Yves Garcia on 03-22-2022 Cholesterol in HDL [Mass/Vol] 34 mg/dL 29-71 [facility] Comment on above: HDL CHOL ATP-III CLA SSIFICATION Cardiovascular RiskHDL > or equal to 60 mg/dL LOWHDL < 40 mg/dL HIGH Serum or plasma total choles terol/high density lipoprotein (HDL) cholesterol mass ratOrdered By: Yves Garcia on 03-22-2022 Cholesterol.total/Chol esterol in HDL [Mass ratio] 3.7 {ratio} <5.0 [facility] Triglyceride [Mass/volume] i n Serum or PlasmaOrdered By: Yves Garcia on 03-22-2022 Triglyceride [Mass/Vol] 158 mg/dL 35-149 [facility] Comment on above: TRIG ATP III CLASSIF ICATIONTRIG less than 150 mg/dL NormalTRIG 150-199 mg/dL Borderline highTRIG 200-500 mg/dL High TRIG greater than 500 mg/dL Very highStandard traceable to the Center for Disease Conrtrol and Prevention (CDC) test method. Troponin I High Sensitivityo n 03-22-2022 Troponin I High Sensitivity 18 pg/mL Normal 0-20 [facility] Comment on above: Result Comment: PERF ORMED BY: [place] [address] PATHOLOGIST DRIVER LICENSE REVIEWING OFFICER YAMILET BACK M.D. Performed By: #### C K, CKMB, HS TROP #### [address] Troponin I High Sensitivity 19 pg/mL Normal 0-20 [facility] Comment on above: Result Comment: PERF ORMED BY: [place] [address] PATHOLOGIST DRIVER LICENSE REVIEWING OFFICER YAMILET BACK M.D. Performed By: #### C K, CKMB, HS TROP #### [address] Troponin I.cardiac [Mass/vol ume] in Serum or Plasma by High sensitivity methodOrdered By: Yves Garcia on 03-22-2022 Troponin I.cardiac High sensitivity method [Mass/Vol] 18 pg/mL 0-20 [facility] Activated partial thrombopla stin time (aPTT) in platelet poor plasma by coagulation aOrdered By: Juan Pabol Aguilar on 03-21-2022 aPTT Coag (PPP) [Time] 28.5 s 25.1-36.5 [facility] B-Type Natriuretic Peptideon 03-21-2022 Natriuretic peptide B (Bld) [Mass/Vol] 74.0 pg/mL Normal 5-100 [facility] Comment on above: Result Comment: PERF ORMED BY: [place] [address] PATHOLOGIST DRIVER LICENSE REVIEWING OFFICER YAMILET BACK M.D. Performed By: #### C K, CKMB, HS TROP #### [address] Basic Metabolic Panelon 03-04 Anion gap [Moles/Vol] 12.7 mmol/L Normal 6.0-15.0 [facility] Comment on above: Performed By: #### B PT SKILLED, CBC, PT, PTT, BMP, CK, CKMB, HS TROP #### [address] Calcium [Mass/Vol] 10.0 mg/dL Normal 8.2-10.2 [facility] Comment on above: Performed By: #### B PT SKILLED, CBC, PT, PTT, BMP, CK, CKMB, HS TROP #### [facility] [address] Chloride [Moles/Vol] 104 mmol/L Normal 95-114 [facility] [place] Comment on above: Performed By: #### B PT SKILLED, CBC, PT, PTT, BMP, CK, CKMB, HS TROP #### [address] CO2 [Moles/Vol] 24.4 mmol/L Normal 22.0-30.0 [facility] Comment on above: Performed By: #### B PT SKILLED, CBC, PT, PTT, BMP, CK, CKMB, HS TROP #### [address] Creatinine [Mass/Vol] 0.96 mg/dL Normal 0.64-1.27 [facility] Comment on above: Performed By: #### B PT SKILLED, CBC, PT, PTT, BMP, CK, CKMB, HS TROP #### [address] Creatinine Clr Calc Pharmacy 94.11 [facility] Comment on above: Result Comment: PERF ORMED BY: [place] [address] PATHOLOGIST DRIVER LICENSE REVIEWING OFFICER YAMILET BACK M.D. Performed By: #### B PT SKILLED, CBC, PT, PTT, BMP, CK, CKMB, HS TROP #### [address] Estimated GFR ( Anum > 60 [facility] Comment on above: Result Comment: GFR estimated reference range: According to KDOQI guidelines, <60 ml/min/1.73m2 is sufficient to diagnose a patient with chronic kidney disease. Performed By: #### B PT SKILLED, CBC, PT, PTT, BMP, CK, CKMB, HS TROP #### [facility] [address] Estimated GFR (Non- Am > 60 Normal [facility] Comment on above: Performed By: #### B PT SKILLED, CBC, PT, PTT, BMP, CK, CKMB, HS TROP #### [facility] [address] Glucose [Mass/Vol] 123 mg/dL High 70-100 [facility] Comment on above: Result Comment: [facility] Glucose Reference Range is dependent on time and content of last meal. Glucose of more than 200 mg/dL in a nonstressed, ambulatory subject supports the diagnosis of Diabetes Mellitus. ADA recommended reference range Performed By: #### B PT SKILLED, CBC, PT, PTT, BMP, CK, CKMB, HS TROP #### [facility] [address] Potassium [Moles/Vol] 5.1 mmol/L Normal 3.5-5.1 [facility] Comment on above: Performed By: #### B PT SKILLED, CBC, PT, PTT, BMP, CK, CKMB, HS TROP #### [facility] [address] Sodium [Moles/Vol] 136 mmol/L Normal 136-146 [facility] Comment on above: Performed By: #### B PT SKILLED, CBC, PT, PTT, BMP, CK, CKMB, HS TROP #### [address] Urea nitrogen [Mass/Vol] 20 mg/dL Normal 9-23 [facility] Comment on above: Performed By: #### B PT SKILLED, CBC, PT, PTT, BMP, CK, CKMB, HS TROP #### [facility] [address] [place] [address] [place] Basophils Auto (Bld) [#/Vol] Ordered By: Juan Pablo Aguilar on 03-21-2022 Basophils (Bld) [#/Vol] 0.0 10*3/uL 0.0-0.2 [facility] Basophils/100 WBC Auto (Bld) Ordered By: Juan Pablo Aguilar on 03-21-2022 Basophils/100 WBC (Bld) 0.6 % . [facility] Complete Blood Count Auto Di ffon 03-21-2022 Basophils (Bld) [#/Vol] 0.0 10*3/uL Normal 0.0-0.2 [facility] Comment on above: Result Comment: PERF ORMED BY: [place] [address] PATHOLOGIST DRIVER LICENSE REVIEWING OFFICER YAMILET BACK M.D. Performed By: #### B PT SKILLED, CBC, PT, PTT, BMP, CK, CKMB, HS TROP #### [address] Basophils/100 WBC (Bld) 0.6 % Normal . [facility] Comment on above: Performed By: #### B PT SKILLED, CBC, PT, PTT, BMP, CK, CKMB, HS TROP #### [address] Eosinophils (Bld) [#/Vol] 0.2 10*3/uL Normal 0.0-0.45 [facility] Comment on above: Performed By: #### B PT SKILLED, CBC, PT, PTT, BMP, CK, CKMB, HS TROP #### [address] Eosinophils/100 WBC (Bld) 2.7 % Normal . [facility] Comment on above: Performed By: #### B PT SKILLED, CBC, PT, PTT, BMP, CK, CKMB, HS TROP #### [address] Erythrocyte distribution width (RBC) [Ratio] 14.1 % Normal 12.0-14.8 [facility] Comment on above: Performed By: #### B PT SKILLED, CBC, PT, PTT, BMP, CK, CKMB, HS TROP #### [address] Hematocrit (Bld) [Volume fraction] 39.2 % Normal 38.8-50.0 [facility] Comment on above: Performed By: #### B PT SKILLED, CBC, PT, PTT, BMP, CK, CKMB, HS TROP #### [address] Hemoglobin (Bld) [Mass/Vol] 12.9 g/dL Low 13.0-17.0 [facility] Comment on above: Performed By: #### B PT SKILLED, CBC, PT, PTT, BMP, CK, CKMB, HS TROP #### [address] Lymphocytes (Bld) [#/Vol] 1.9 10*3/uL Normal 1.00-4.8 [facility] Comment on above: Performed By: #### B PT SKILLED, CBC, PT, PTT, BMP, CK, CKMB, HS TROP #### [address] Lymphocytes/100 WBC (Bld) 26.9 % Normal . [facility] Comment on above: Performed By: #### B PT SKILLED, CBC, PT, PTT, BMP, CK, CKMB, HS TROP #### [address] MCH (RBC) [Entitic mass] 30.8 pg Normal 27.5-35.2 [facility] Comment on above: Performed By: #### B PT SKILLED, CBC, PT, PTT, BMP, CK, CKMB, HS TROP #### [address] MCV (RBC) [Entitic vol] 93.4 fL Normal 83.5-101 [facility] Comment on above: Performed By: #### B PT SKILLED, CBC, PT, PTT, BMP, CK, CKMB, HS TROP #### [address] Mean Corpuscular HGB Conc 33.0 g/dL Normal 32.5-35.6 [facility] Comment on above: Performed By: #### B PT SKILLED, CBC, PT, PTT, BMP, CK, CKMB, HS TROP #### [address] Monocytes (Bld) [#/Vol] 0.8 10*3/uL Normal 0.0-0.8 [facility] Comment on above: Performed By: #### B PT SKILLED, CBC, PT, PTT, BMP, CK, CKMB, HS TROP #### [address] Monocytes/100 WBC (Bld) 17.83 % Normal 0.00-20.00 [facility] Comment on above: Performed By: #### B PT SKILLED, CBC, PT, PTT, BMP, CK, CKMB, HS TROP #### [address] Monocytes/100 WBC (Bld) 11.1 % Normal . [facility] Comment on above: Performed By: #### B PT SKILLED, CBC, PT, PTT, BMP, CK, CKMB, HS TROP #### [address] Neutrophils (Bld) [#/Vol] 4.2 10*3/uL Normal 1.8-7.7 [facility] Comment on above: Performed By: #### B PT SKILLED, CBC, PT, PTT, BMP, CK, CKMB, HS TROP #### [address] Neutrophils/100 WBC (Bld) 58.7 % Normal . [facility] Comment on above: Performed By: #### B PT SKILLED, CBC, PT, PTT, BMP, CK, CKMB, HS TROP #### [address] NRBC% 0.1 /100{WBC} Normal 0-0.5 [facility] Comment on above: Performed By: #### B PT SKILLED, CBC, PT, PTT, BMP, CK, CKMB, HS TROP #### [address] Platelet mean volume (Bld) [Entitic vol] 7.8 fL Normal 6.6-10.1 [facility] Comment on above: Performed By: #### B PT SKILLED, CBC, PT, PTT, BMP, CK, CKMB, HS TROP #### [address] Platelets (Bld) [#/Vol] 205 10*3/uL Normal 150-450 [facility] Comment on above: Performed By: #### B PT SKILLED, CBC, PT, PTT, BMP, CK, CKMB, HS TROP #### [facility] [address] RBC (Bld) [#/Vol] 4.20 10*6/uL Normal 3.90-5.60 [facility] Comment on above: Performed By: #### B PT SKILLED, CBC, PT, PTT, BMP, CK, CKMB, HS TROP #### [facility] [address] WBC (Bld) [#/Vol] 7.1 10*3/uL Normal 4.1-10.5 [facility] Comment on above: Performed By: #### B PT SKILLED, CBC, PT, PTT, BMP, CK, CKMB, HS TROP #### [facility] [address] Creatine Kinaseon 03-21-2022 CK [Catalytic activity/Vol] 122 U/L Normal 22-269 [facility] Comment on above: Performed By: #### C K, CKMB, HS TROP #### [facility] [address] CK [Catalytic activity/Vol] 153 U/L Normal 22-269 [facility] Comment on above: Performed By: #### B PT SKILLED, CBC, PT, PTT, BMP, CK, CKMB, HS TROP #### [facility] [address] Creatine kinase [Enzymatic a ctivity/volume] in Serum or PlasmaOrdered By: Juan Pablo Aguilar on 03-21-2022 CK [Catalytic activity/Vol] 153 U/L [facility] Creatinine Kinase MBon 03-21 CK.MB [Mass/Vol] 2.8 ng/mL Normal 0.6-6.3 [facility] Comment on above: Performed By: #### C K, CKMB, HS TROP #### [facility] [address] CKMB Relative Index 2.2 % Normal 0.00-2.50 [facility] Comment on above: Performed By: #### C K, CKMB, HS TROP #### [facility] [address] CK.MB [Mass/Vol] 3.0 ng/mL Normal 0.6-6.3 [facility] Comment on above: Performed By: #### C K, CKMB, HS TROP #### [facility] [address] CKMB Relative Index 1.9 % Normal 0.00-2.50 [facility] Comment on above: Performed By: #### C K, CKMB, HS TROP #### [facility] [address] [place] [address] [place] Creatinine and Glomerular fi ltration rate.predicted panel (S/P/Bld)Ordered By: Juan Pablo Aguilar on 03-21-2022 Creatinine [Mass/Vol] 0.96 mg/dL 0.64-1.27 [facility] ECG 12 lead ECGon 03-21-2022 ECG 12 lead ECG [facility] [place] [address] [place] [address] Electrocardiograph Report Signed Patient: Tammy Wu MR#: [id number] [birth year] : 1950 Acct:[id number] Age/Sex: 72 / M ADM Date: 03/21/22 Loc: Room: [address] [place] [address] Type: DIS INOo Attending Dr: Jakub Andrews [...] By Brook Whittington MD 03/21/22 1635 Normal [facility] Eosinophils Auto (Bld) [#/Vo l]Ordered By: Juan Pablo Aguilar on 03-21-2022 Eosinophils (Bld) [#/Vol] 0.2 10*3/uL 0.0-0.45 [facility] Eosinophils/100 WBC Auto (Bl d)Ordered By: Juan Pablo Aguilar on 03-21-2022 Eosinophils/100 WBC (Bld) 2.7 % . [facility] Erythrocyte distribution wid th Auto (RBC) [Ratio]Ordered By: Juan Pablo Aguilar on 03-21-2022 Erythrocyte distribution width (RBC) [Ratio] 14.1 % 12.0-14.8 [facility] Estimated glomerular filtrat ion rate (GFR) non- AmericanOrdered By: Juan Pablo Aguilar on 03-21-2022 GFR/1.73 sq M.predicted among non-blacks MDRD (S/P/Bld) [Vol rate/Area] > 60 mL/Min [facility] Glucose Poct Glucometerson 1 05-22-2021 Commemt1 Glu2: Cleaned Meter Normal [facility] Comment on above: Result Comment: PERF ORMED BY: [place] [address] PATHOLOGIST DRIVER LICENSE REVIEWING OFFICER YAMILET BACK M.D. Performed By: #### C K, CKMB, HS TROP #### [facility] [address] Glucose [Mass/Vol] 142 mg/dL Normal [facility] Comment on above: Result Comment: [place] Glucose Reference Range is dependent on time and content of last meal. Glucose of more than 200 mg/dL in a nonstressed, ambulatory subject supports the diagnosis of Diabetes Mellitus. Performed By: #### C K, CKMB, HS TROP #### [facility] [address] [place] [address] [place] Hematocrit Auto (Bld) [Volum e fraction]Ordered By: Juan Pablo Aguilar on 03-21-2022 Hematocrit (Bld) [Volume fraction] 39.2 % 38.8-50.0 [facility] Hemoglobin [Mass/volume] in BloodOrdered By: Juan Pablo Aguilar on 03-21-2022 Hemoglobin (Bld) [Mass/Vol] 12.9 g/dL 13.0-17.0 [facility] Laboratory - Chemistry and C hemistry - challengeOrdered By: Juan Pablo Aguilar on 03-21-2022 Natriuretic peptide B (Bld) [Mass/Vol] 74.0 pg/mL 5-100 [facility] Laboratory - CoagulationOrde red By: Juan Pablo Aguilar on 03-21-2022 PT Coag (PPP) [Time] 11.6 s 9.0-12.9 [facility] [place] Leukocytes [#/volume] correc usama for nucleated erythrocytes in Blood by Automated counOrdered By: Juan Pablo Aguilar on 03-21-2022 WBC corrected for nucl RBC Auto (Bld) [#/Vol] 7.1 10*3/uL 4.1-10.5 [facility] Lymphocytes Auto (Bld) [#/Vo l]Ordered By: Juan Pablo Aguilar on 03-21-2022 Lymphocytes (Bld) [#/Vol] 1.9 10*3/uL 1.00-4.8 [facility] Lymphocytes/100 WBC Auto (Bl d)Ordered By: Juan Pablo Aguilar on 03-21-2022 Lymphocytes/100 WBC (Bld) 26.9 % . [facility] MCH Auto (RBC) [Entitic mass ]Ordered By: Juan Pablo Aguilar on 03-21-2022 MCH (RBC) [Entitic mass] 30.8 pg 27.5-35.2 [facility] MCHC Auto (RBC) [Mass/Vol]Or dered By: Juan Pablo Aguilar on 03-21-2022 MCHC (RBC) [Mass/Vol] 33.0 g/dL 32.5-35.6 [facility] MCV Auto (RBC) [Entitic vol] Ordered By: Juan Pablo Aguilar on 03-21-2022 MCV (RBC) [Entitic vol] 93.4 fL 83.5-101 [facility] Monocyte distribution width [Entitic volume] in Blood by AutomatedOrdered By: Juan Pablo Aguilar on 03-21-2022 Monocyte distribution width Auto (Bld) [Entitic vol] 17.83 % 0.00-20.00 [facility] Monocytes Auto (Bld) [#/Vol] Ordered By: Juan Pablo Aguilar on 03-21-2022 Monocytes (Bld) [#/Vol] 0.8 10*3/uL 0.0-0.8 [facility] Monocytes/100 WBC Auto (Bld) Ordered By: Juan Pablo Aguilar on 03-21-2022 Monocytes/100 WBC (Bld) 11.1 % . [facility] Neutrophils Auto (Bld) [#/Vo l]Ordered By: Juan Pablo Aguilar on 03-21-2022 Neutrophils (Bld) [#/Vol] 4.2 10*3/uL 1.8-7.7 [facility] Neutrophils/100 WBC Auto (Bl d)Ordered By: Juan Pablo Aguilar on 03-21-2022 Neutrophils/100 WBC (Bld) 58.7 % . [facility] No Panel InformationOrdered By: Juan Pablo Aguilar on 03-21-2022 Estimated GFR () > 60 mL/Min [facility] Comment on above: GFR estimated refere nce range: According to KDOQI guidelines, <60 ml/min/1.73m2 is sufficient to diagnose a patient with chronic kidney disease. Pharmacy Creatinine Clearance (Chem 94.11 [facility] Nucleated erythrocytes [Pres ence] in Blood by Automated countOrdered By: Juan Pablo Aguilar on 03-21-2022 Nucleated RBC Auto Ql (Bld) 0.1 /100{WBC} 0-0.5 [facility] Partial Thromboplastin Timeo n 03-21-2022 aPTT Coag (Bld) [Time] 28.5 s Normal 25.1-36.5 [facility] Comment on above: Result Comment: PERF ORMED BY: [facility] [address] [place] [address] PATHOLOGIST DRIVER LICENSE REVIEWING OFFICER YAMILET BACK M.D. Performed By: #### B PT SKILLED, CBC, PT, PTT, BMP, CK, CKMB, HS TROP #### [facility] [address] Platelet mean volume Auto (B ld) [Entitic vol]Ordered By: Juan Pablo Aguilar on 03-21-2022 Platelet mean volume (Bld) [Entitic vol] 7.8 fL 6.6-10.1 [facility] Platelet poor plasma interna tional normalized ratio (INR) by coagulation assay (relatOrdered By: Juan Pablo Aguilar on 03-21-2022 INR Coag (PPP) [Relative time] 1.0 {INR} [facility] Comment on above: INR Therapeutic Rang e [...] 03-21-2022 Platelets (Bld) [#/Vol] 205 10*3/uL 150-450 [facility] Prothrombin Time INRon 03-21 INR Coag (PPP) [Relative time] 1.0 {INR} Normal [facility] Comment on above: Result Comment: INR Therapeutic [...] 3 - 4.5 Performed By: #### B PT SKILLED, CBC, PT, PTT, BMP, CK, CKMB, HS TROP #### [facility] [address] PT Coag (PPP) [Time] 11.6 s Normal 9.0-12.9 [facility] Comment on above: Performed By: #### B PT SKILLED, CBC, PT, PTT, BMP, CK, CKMB, HS TROP #### [facility] [address] RBC Auto (Bld) [#/Vol]Ordere d By: Juan Pablo Aguilar on 03-21-2022 RBC (Bld) [#/Vol] 4.20 10*6/uL 3.90-5.60 [facility] Serum or plasma anion gap de terminationOrdered By: Juan Pablo Aguilar on 03-21-2022 Anion gap [Moles/Vol] 12.7 mmol/L 6.0-15.0 [facility] Serum or plasma calcium rossana urement (mass/volume)Ordered By: Juan Pablo Aguilar on 03-21-2022 Calcium [Mass/Vol] 10.0 mg/dL 8.2-10.2 [facility] Serum or plasma chloride izzy surement (moles/volume)Ordered By: Juan Pablo Aguilar on 03-21-2022 Chloride [Moles/Vol] 104 mmol/L 95-114 [facility] Serum or plasma creatine kin ase MB (CKMB)/total creatine kinase (CK) ratio by calculaOrdered By: Juan Pablo Aguilar on 03-21-2022 CK.MB Calc [Catalytic fraction] 1.9 % 0.00-2.50 [facility] Serum or plasma creatine kin ase MB measurement (mass/volume)Ordered By: Juan Pablo Aguilar on 03-21-2022 CK.MB [Mass/Vol] 3.0 ng/mL 0.6-6.3 [facility] Serum or plasma glucose rossana urement (mass/volume)Ordered By: Juan Pablo Aguilar on 03-21-2022 Glucose [Mass/Vol] 123 mg/dL 70-100 [facility] Comment on above: ADA recommended refe rence rangeRandom Glucose Reference Range is dependent on time and content of last meal. Glucose of more than 200 mg/dL in a nonstressed, ambulatory subject supports the diagnosis of Diabetes Mellitus. Serum or plasma potassium me asurement (moles/volume)Ordered By: Juan Pablo Aguilar on 03-21-2022 Potassium [Moles/Vol] 5.1 mmol/L 3.5-5.1 [facility] Serum or plasma sodium measu rement (moles/volume)Ordered By: Juan Pablo Aguilar on 03-21-2022 Sodium [Moles/Vol] 136 mmol/L 136-146 [facility] Serum or plasma total carbon dioxide measurement (moles/volume)Ordered By: Juan Pablo Aguilar on 03-21-2022 CO2 [Moles/Vol] 24.4 mmol/L 22.0-30.0 [facility] Serum or plasma urea nitroge n measurement (mass/volume)Ordered By: Juan Pablo Aguilar on 03-21-2022 Urea nitrogen [Mass/Vol] 20 mg/dL 9-23 [facility] Troponin I High Sensitivityo n 03-21-2022 Troponin I High Sensitivity 11 pg/mL Normal 0-20 [facility] Comment on above: Result Comment: PERF ORMED BY: [place] [address] PATHOLOGIST DRIVER LICENSE REVIEWING OFFICER YAMILET BACK M.D. Performed By: #### C K, CKMB, HS TROP #### [facility] [address] [place] [address] [place] Troponin I High Sensitivity 11 pg/mL Normal 0-20 [facility] Comment on above: Result Comment: PERF ORMED BY: [facility] [address] [place] [address] PATHOLOGIST DRIVER LICENSE REVIEWING OFFICER YAMILET BACK M.D. Performed By: #### H S TROP #### [facility] [address] [place] [address] Troponin I High Sensitivity 10 pg/mL Normal 0-20 [facility] Comment on above: Result Comment: PERF ORMED BY: [place] [address] PATHOLOGIST DRIVER LICENSE REVIEWING OFFICER YAMILET BACK M.D. Performed By: #### C K, CKMB, HS TROP #### [facility] [address] [place] [address] [place] Troponin I.cardiac [Mass/vol ume] in Serum or Plasma by High sensitivity methodOrdered By: Tyree Husain on 03-21-2022 Troponin I.cardiac High sensitivity method [Mass/Vol] 11 pg/mL 0-20 [facility] WBC Auto (Bld) [#/Vol]Ordere d By: Juan Pablo Aguilar on 03-21-2022 WBC (Bld) [#/Vol] 7.1 10*3/uL 4.1-10.5 [facility] XR chest 2V*on 03-21-2022 XR chest 2V* [facility] Main [address] [address] XRay Report Signed Patient: Tammy Wu MR#: [id number] 94 : 1950 Acct:[id number] Age/Sex: 72 / M ADM Date: 03/21/22 [...] Alexei Munoz M.D.03/21/2022 1:03 PM Dictation Location: [place] [address] Transcribed By: [facility] 03/21/22 1303 Dictated By: Alexei Munoz II, MD 03/21/22 130 Signed By: 03/21/22 1303 [facility] Office Visit (Cardiology)on 03-17-2022 Follow-up visit Diagnoses/Problems [...] 45.0-49.9, adult Healthy Weight Tips; Status:Complete; Done: [id number] Some eating tips that can help you lose weight.; Status:Complete; Done: [id number] Patient Instructions Please bring all medicines, vitamins, [...] negative for complaint. Vitals Vital Signs Recorded: [id number] 04:57PMRecorded: [id number] 02:37PM Heart Rate60, R Uihqgf00, R Radial Vjbkdxzn591, RUE, Xhnofku915, RUE, Sitting Qvluuwnhm20, RUE, Jibnawm24, RUE, Sitting Height5 ft 7 in5 ft 7 in Pdfkkq487 lb 310 lb BMI Ekparstgoj58.55 kg/m248.55 kg/m2 BSA Calculated2.442.44 Tobacco Useb) No PHQ-2 #1. Over the last 2 weeks have you felt down, depressed or hopeless? (If yes, answer PHQ-9 belo (more content not included)... Normal [employer] Tobacco Screening.on Adult depression screening assessment No [facility] [address] DO Work Phone: Fall risk assessment a) No falls within the last year [facility] [address] DO Work Phone: Tobacco use status CPHS b) No [facility] [address] [place] [address] DO Work Phone: XR CHEST [...] JOYA MCRAE Date: 2021-10-20 15:46 Normal [facility] PSA SCREEN (MEDICARE)on 06-02 TPSA 0.380 ng/mL Normal <4.000 [facility] Scientific Advisor Comment on above: Result Comment: PSA Test Method: ECLIA/Jose e 601 Performed By: #### P SA #### [facility] [address] [place], [place] [id number] Complete Blood Counton 03-09 Erythrocyte distribution width (RBC) [Ratio] 14.2 % Normal 11.0-15.0 [facility] Ad[facility] Comment on above: Performed By: #### C BC, LIPD, TSH reflex FT4, URIC, CMP #### [facility] [address] [place], [place] [id number] Hematocrit (Bld) [Volume fraction] 40.6 % Normal 38.5-50.0 [facility] Scientific Advisor Comment on above: Performed By: #### C BC, LIPD, TSH reflex FT4, URIC, CMP #### [facility] [address] [place], [place] [id number] Hemoglobin (Bld) [Mass/Vol] 13.0 g/dL Normal 13.0-17.1 [facility] Specialist Comment on above: Performed By: #### C BC, LIPD, TSH reflex FT4, URIC, CMP #### [facility] [address] [place], [place] [id number] MCH (RBC) [Entitic mass] 31.1 pg Normal 27.0-33.0 [facility] Specialist Comment on above: Performed By: #### C BC, LIPD, TSH reflex FT4, URIC, CMP #### [facility] [address] [place], [place] [id number] MCHC (RBC) [Mass/Vol] 32.0 g/dL Normal 32.0-36.0 [facility] Comment on above: Performed By: #### C BC, LIPD, TSH reflex FT4, URIC, CMP #### [facility] [address] [place], [place] [id number] MCV (RBC) [Entitic vol] 97 fL Normal 80-100 [facility] Specialist Comment on above: Performed By: #### C BC, LIPD, TSH reflex FT4, URIC, CMP #### [facility] [address] [place], [place] [id number] Platelet mean volume (Bld) [Entitic vol] 9.60 fL Normal 7.50-12.50 [facility] Specialist Comment on above: Performed By: #### C BC, LIPD, TSH reflex FT4, URIC, CMP #### [facility] [address] [place], [place] [id number] Platelets (Bld) [#/Vol] 185 10*3/uL Normal 140-400 [facility] Specialist Comment on above: Performed By: #### C BC, LIPD, TSH reflex FT4, URIC, CMP #### [facility] [address] [place], [place] [id number] RBC (Bld) [#/Vol] 4.18 10*6/uL Low 4.20-5.80 [facility] Comment on above: Performed By: #### C BC, LIPD, TSH reflex FT4, URIC, CMP #### [facility] [address] [place], [place] [id number] RDW-SD 50.9 fL High 37.0-50.0 [facility] Scientific Advisor Comment on above: Performed By: #### C BC, LIPD, TSH reflex FT4, URIC, CMP #### [facility] [address] [place], [place] [id number] WBC (Bld) [#/Vol] 5.9 10*3/uL Normal 3.8-11.0 [facility] [place] Scientific Advisor Comment on above: Performed By: #### C BC, LIPD, TSH reflex FT4, URIC, CMP #### [facility] [address] [place], [place] [id number] Comprehensive Metabolic Pane [facility] 03-09-2021 Albumin [Mass/Vol] 4.8 g/dL Normal 3.6-5.1 [facility] [place] Scientific Advisor Comment on above: Performed By: #### C BC, LIPD, TSH reflex FT4, URIC, CMP #### [facility] [address] [place], [place] [id number] Albumin/Globulin [Mass ratio] 1.8 {ratio} Normal 1.0-2.5 [facility] Scientific Advisor Comment on above: Performed By: #### C BC, LIPD, TSH reflex FT4, URIC, CMP #### [facility] [address] [place], [place] [id number] ALP [Catalytic activity/Vol] 83 U/L Normal 40-129 [facility] Scientific Advisor Comment on above: Performed By: #### C BC, LIPD, TSH reflex FT4, URIC, CMP #### [facility] [address] [place], [place] [id number] ALT [Catalytic activity/Vol] 34 U/L Normal 9-46 [facility] Scientific Advisor Comment on above: Result Comment: 03/04 Female reference range changed. Performed By: #### C BC, LIPD, TSH reflex FT4, URIC, CMP #### [facility] [address] [place], [place] [id number] Anion gap [Moles/Vol] 17 mmol/L Normal 12-20 [facility] Specialist Comment on above: Result Comment: Effe ctive 04/09/2019 reference range changed. Performed By: #### C BC, LIPD, TSH reflex FT4, URIC, CMP #### [facility] [address] [place], [place] [id number] AST [Catalytic activity/Vol] 22 U/L Normal 10-40 [facility] Comment on above: Performed By: #### C BC, LIPD, TSH reflex FT4, URIC, CMP #### [facility] [address] [place], [place] [id number] Bilirubin [Mass/Vol] 0.51 mg/dL Normal 0.30-1.20 [facility] Comment on above: Performed By: #### C BC, LIPD, TSH reflex FT4, URIC, CMP #### [facility] [address] [place], [place] [id number] BUN/CREA 33 Ratio High 6-22 [facility] Comment on above: Performed By: #### C BC, LIPD, TSH reflex FT4, URIC, CMP #### [facility] [address] [place], [place] [id number] Calcium [Mass/Vol] 10.8 mg/dL High 8.6-10.2 [facility] Comment on above: Performed By: #### C BC, LIPD, TSH reflex FT4, URIC, CMP #### [facility] [address] [place], [place] [id number] Chloride [Moles/Vol] 107 mmol/L Normal 98-107 [facility] Comment on above: Performed By: #### C BC, LIPD, TSH reflex FT4, URIC, CMP #### [facility] [address] [place], [place] [id number] CO2 [Moles/Vol] 23 mmol/L Normal 20-31 [facility] Comment on above: Performed By: #### C BC, LIPD, TSH reflex FT4, URIC, CMP #### [facility] [address] [place], [place] [id number] Creatinine [Mass/Vol] 0.9 mg/dL Normal 0.7-1.4 [facility] Comment on above: Performed By: #### C BC, LIPD, TSH reflex FT4, URIC, CMP #### [facility] [address] [place], [place] [id number] eGFRAA 96 mL/min/1.73m2 Normal >60 [facility] Specialist Comment on above: Performed By: #### C BC, LIPD, TSH reflex FT4, URIC, CMP #### [facility] [address] [place], [place] [id number] eGFRNAA 79 mL/min/1.73m2 Normal >60 [facility] Scientific Advisor Comment on above: Performed By: #### C BC, LIPD, TSH reflex FT4, URIC, CMP #### [facility] [address] [place], [place] [id number] Globulin (S) [Mass/Vol] 2.6 g/dL Normal 1.9-3.7 [facility] Scientific Advisor Comment on above: Performed By: #### C BC, LIPD, TSH reflex FT4, URIC, CMP #### [facility] [address] [place], [place] [id number] Glucose [Mass/Vol] 89 mg/dL Normal 65-99 Wilfred val[facility] [place] Scientific Advisor Comment on above: Result Comment: For FASTING Glucose --- ADA reference ranges: Normal 65-99 mg/dl Prediabetes 100-125 Diabetes >/= 126 Performed By: #### C BC, LIPD, TSH reflex FT4, URIC, CMP #### [facility] [address] [place], [place] [id number] Potassium [Moles/Vol] 5.5 mmol/L Normal 3.5-5.5 [facility] Comment on above: Performed By: #### C BC, LIPD, TSH reflex FT4, URIC, CMP #### [facility] [address] [place], [place] [id number] Protein [Mass/Vol] 7.4 g/dL Normal 6.1-8.1 Wilfred [facility] [place] Scientific Advisor Comment on above: Performed By: #### C BC, LIPD, TSH reflex FT4, URIC, CMP #### [facility] [address] [place], [place] [id number] Sodium [Moles/Vol] 141 mmol/L Normal 135-146 Wilfred valera [place] Scientific Advisor Comment on above: Performed By: #### C BC, LIPD, TSH reflex FT4, URIC, CMP #### [facility] [address] [facility] [place] [place] [id number] Urea nitrogen [Mass/Vol] 31 mg/dL High 7-25 [facility] Specialist Comment on above: Performed By: #### C BC, LIPD, TSH reflex FT4, URIC, CMP #### [facility] [address] [place], [place] [id number] Lipid Panelon 03-09-2021 Cholesterol [Mass/Vol] 138 mg/dL Normal 125-200 [facility] Comment on above: Result Comment: Low risk < 200mg/dL Borderline risk 201-239 mg/dl High risk > or equal to 240 Performed By: #### C BC, LIPD, TSH reflex FT4, URIC, CMP #### [facility] [address] [facility] [place] [id number] Cholesterol in HDL [Mass/Vol] 38 mg/dL Low >40 [facility] Scientific Advisor Comment on above: Result Comment: High Cardiovascular Risk HDL <40 mg/dL Low Cardiovascular Risk HDL > or equal to 60 mg/dl Performed By: #### C BC, LIPD, TSH reflex FT4, URIC, CMP #### [facility] [address] [place], [place] [id number] Cholesterol in LDL [Mass/Vol] 77 mg/dL Normal [facility] Specialist Comment on above: Result Comment: LDL ATP III CLASSIFICATION LDL less than 100 mg/dl Optimal LDL 100-129 mg/dl Near or above optimal LDL 130-159 Borderline high LDL 160-189 High LDL greater than 189 mg/dl Very High Performed By: #### C BC, LIPD, TSH reflex FT4, URIC, CMP #### [facility] [address] [facility] [place] [place] [id number] Cholesterol in VLDL [Mass/Vol] 23 mg/dL Normal [facility] Scientific Advisor Comment on above: Performed By: #### C BC, LIPD, TSH reflex FT4, URIC, CMP #### [facility] [address] [place], [place] [id number] Cholesterol.total/Chol esterol in HDL [Mass ratio] 4 {ratio} Normal [facility] Scientific Advisor Comment on above: Performed By: #### C BC, LIPD, TSH reflex FT4, URIC, CMP #### [facility] [address] [place], [place] [id number] Triglyceride [Mass/Vol] 117 mg/dL Normal 30-150 [facility] Specialist Comment on above: Result Comment: TRIG ATPIII CLASSIFICATIONS TRIG less than 150 mg/dl Normal TRIG 150-199 mg/dl Borderline High TRIG 200-500 mg/dl High TRIG greather than 500 mg/dl Very High Performed By: #### C BC, LIPD, TSH reflex FT4, URIC, CMP #### [facility] [address] [place], [place] [id number] TSH w/ Reflex to Free T4on 1 05-10-2020 TSH 1.330 uIU/mL Normal 0.400-4.50 0 [facility] Scientific Advisor Comment on above: Performed By: #### C BC, LIPD, TSH reflex FT4, URIC, CMP #### [facility] [address] [place], [place] [id number] Uric Acidon 03-09-2021 URIC 8.1 mg/dL High 4.0-8.0 [facility] Specialist Comment on above: Result Comment: Refe rence range change 02/18/2017. Prior reference range F 2.4-5.7mg/dL. M 3.4-7.0 mg/dL. Performed By: #### C BC, LIPD, TSH reflex FT4, URIC, CMP #### [facility] [address] [place], [place] [id number] [facility] CARDIAC STRESS/REST INJE CTIONon 08-28-2019 [facility] CARDIAC STRESS/REST INJECTION Patient Name: TAMMY WU STUDY: MYOCARDIAL PERFUSION STRESS TEST WITH LEXISCAN Performing facility: [facility], [address] [place] [address], [address], [place] [address] [facility] Provider: Pawan Lion MD, [facility] PCP: Dr. Nico Medina Supervising provider: Norm[facility] INDICATION: Chest Pain; DAVID; HISTORY: Gender: M; Age: 69 y/o ; Height: 172.72 cm; Weight: 763.7165816 kg. High Cholesterol; Diabetes; Family HX CAD; HTN; Chest Pain; SOB; Fatigue; Dizziness Quit smoking 20 years ago. COMPARISON: No comparison. ACCESSION NUMBER(S): [id number]; [id number]; [id number] ORDERING CLINICIAN: COLIN LION TECHNIQUE: TWO DAY [...] Electronically signed by: NORMA OLSON MD Normal [facility] Vital Signs Date Time Vital Sign Value Performing Clinician Facility 11-19-2024 10:40-0400 Body height 172.7 cm Leena MAGALLANES Work Phone: [facility] 11-19-2024 10:40-0400 Body mass index (BMI) [Ratio] 44.7 kg/m2 Leena MAGALLANES Work Phone: [facility] 11-19-2024 10:40-0400 Body weight 133.36 kg Leena MAGALLANES Work Phone: [facility] 11-19-2024 10:40-0400 Diastolic blood pressure 72 mm[Hg] Leena Lopezmer PA Work Phone: [facility] 11-19-2024 10:40-0400 Heart rate 52 /min Leena Hemmer PA Work Phone: [facility] 11-19-2024 10:40-0400 SaO2% (BldA) [Mass fraction] 97 % Leena Lopezmer PA Work Phone: [facility] 11-19-2024 10:40-0400 Systolic blood pressure 138 mm[Hg] Leena Lopezmer PA Work Phone: [facility] 10-12-2024 10:18-0400 Body height 170.2 cm Ro Pendleton MD Work Phone: [facility] 10-12-2024 10:18-0400 Body mass index (BMI) [Ratio] 46.05 kg/m2 Ro Pendleton MD Work Phone: [facility] 10-12-2024 10:18-0400 Body weight 133.36 kg Ro Pendleton MD Work Phone: [facility] 10-12-2024 10:18-0400 Diastolic blood pressure 88 mm[Hg] Ro Pendleton MD Work Phone: [facility] 10-12-2024 10:18-0400 Heart rate 47 /min Ro Pendleton MD Work Phone: [facility] 10-12-2024 10:18-0400 Systolic blood pressure 138 mm[Hg] Ro Pendleton MD Work Phone: [facility] 09-17-2024 09:25-0400 Body height 172.7 cm Kojo Medina MD Work Phone: [facility] 09-17-2024 09:25-0400 Diastolic blood pressure 72 mm[Hg] Kojo Medina MD Work Phone: [facility] 09-17-2024 09:25-0400 Systolic blood pressure 138 mm[Hg] Kojo Medina MD Work Phone: [facility] 08-02-2024 10:10-0400 Body height 172.7 cm Kojo Medina MD Work Phone: [facility] 08-02-2024 10:10-0400 Body mass index (BMI) [Ratio] 45.16 kg/m2 Kojo Medina MD Work Phone: [facility] 08-02-2024 10:10-0400 Body weight 134.72 kg Kojo Medina MD Work Phone: [facility] 08-02-2024 10:10-0400 Diastolic blood pressure 74 mm[Hg] Kojo Medina MD Work Phone: [facility] 08-02-2024 10:10-0400 Heart rate 56 /min Kojo Medina MD Work Phone: [facility] 08-02-2024 10:10-0400 SaO2% (BldA) [Mass fraction] 97 % Kojo Median MD Work Phone: [facility] 08-02-2024 10:10-0400 Systolic blood pressure 132 mm[Hg] Kojo Medina MD Work Phone: [facility] 03-22-2024 10:11-0500 Body height 172.7 cm Kojo Medina MD Work Phone: [facility] 03-22-2024 10:11-0500 Body mass index (BMI) [Ratio] 46.38 kg/m2 Kojo Medina MD Work Phone: [facility] 03-22-2024 10:11-0500 Body weight 138.35 kg Kojo Medina MD Work Phone: [facility] 03-22-2024 10:11-0500 Diastolic blood pressure 96 mm[Hg] Kojo Medina MD Work Phone: [facility] 03-22-2024 10:11-0500 Heart rate 72 /min Kojo Medina MD Work Phone: [facility] 03-22-2024 10:11-0500 SaO2% (BldA) [Mass fraction] 96 % Kojo Medina MD Work Phone: [facility] 03-22-2024 10:11-0500 Systolic blood pressure 142 mm[Hg] Kojo Medina MD Work Phone: [facility] 02-17-2024 10:53-0500 Body height 172.7 cm Kojo Medina MD Work Phone: [facility] 02-17-2024 10:53-0500 Body mass index (BMI) [Ratio] 48.2 kg/m2 Kojo Medina MD Work Phone: [facility] 02-17-2024 10:53-0500 Body weight 143.79 kg Kojo Medina MD Work Phone: [facility] 02-17-2024 10:53-0500 Diastolic blood pressure 76 mm[Hg] Kojo Medina MD Work Phone: [facility] 02-17-2024 10:53-0500 Heart rate 70 /min Kojo Medina MD Work Phone: [facility] 02-17-2024 10:53-0500 SaO2% (BldA) [Mass fraction] 96 % Kojo Medina MD Work Phone: [facility] 02-17-2024 10:53-0500 Systolic blood pressure 134 mm[Hg] Kojo Medina MD Work Phone: [facility] 02-01-2024 10:35-0400 Body height 172.7 cm Lyudmila Duncan PT SKILLED Work Phone: [facility] 02-01-2024 10:35-0400 Body mass index (BMI) [Ratio] 46.22 kg/m2 Lyudmila Duncan PT SKILLED Work Phone: [facility] 02-01-2024 10:35-0400 Body weight 137.89 kg Lyudmila Duncan PT SKILLED Work Phone: [facility] 02-01-2024 10:35-0400 Diastolic blood pressure 100 mm[Hg] Lyudmila Duncan PT SKILLED Work Phone: [facility] 02-01-2024 10:35-0400 Heart rate 64 /min Lyudmila Garceno PT SKILLED Work Phone: [facility] 02-01-2024 10:35-0400 SaO2% (BldA) [Mass fraction] 94 % Lyudmila Ronald PT SKILLED Work Phone: [facility] 02-01-2024 10:35-0400 Systolic blood pressure 162 mm[Hg] Lyudmila Garceno PT SKILLED Work Phone: [facility] 01-24-2024 10:25-0400 Body height 172.7 cm Lyudmila Ronald PT SKILLED Work Phone: [facility] 01-24-2024 10:25-0400 Body mass index (BMI) [Ratio] 48.96 kg/m2 Lyudmila Garceno PT SKILLED Work Phone: [facility] 01-24-2024 10:25-0400 Body temperature 97.9 [degF] Lyudmila Garceno PT SKILLED Work Phone: [facility] 01-24-2024 10:25-0400 Body weight 146.06 kg Lyudmila Garceno PT SKILLED Work Phone: [facility] 01-24-2024 10:25-0400 Diastolic blood pressure 58 mm[Hg] Lyudmila Ronald PT SKILLED Work Phone: [facility] 01-24-2024 10:25-0400 Heart rate 63 /min Lyudmila Anayavely PT SKILLED Work Phone: [facility] 01-24-2024 10:25-0400 SaO2% (BldA) [Mass fraction] 91 % Lyudmila Ronald PT SKILLED Work Phone: [facility] 01-24-2024 10:25-0400 Systolic blood pressure 126 mm[Hg] Lyudmila Anayavely PT SKILLED Work Phone: [facility] 01-13-2024 10:33-0400 Diastolic blood pressure 85 mm[Hg] Ro Pendleton MD Work Phone: [facility] 01-13-2024 10:33-0400 Systolic blood pressure 160 mm[Hg] Ro Pendleton MD Work Phone: [facility] 01-13-2024 10:07-0400 Body height 170.2 cm Ro Pendleton MD Work Phone: [facility] 01-13-2024 10:07-0400 Body mass index (BMI) [Ratio] 49.09 kg/m2 Ro Pendleton MD Work Phone: [facility] 01-13-2024 10:07-0400 Body weight 142.16 kg Ro Pendleton MD Work Phone: [facility] 01-13-2024 10:07-0400 Heart rate 60 /min Ro Pendleton MD Work Phone: [facility] 12-21-2023 09:39-0400 Body height 172.7 cm Kojo Medina MD Work Phone: [facility] 12-21-2023 09:39-0400 Body mass index (BMI) [Ratio] 46.68 kg/m2 Kojo Medina MD Work Phone: [facility] 12-21-2023 09:39-0400 Body weight 139.25 kg Kojo Medina MD Work Phone: [facility] 12-21-2023 09:39-0400 Diastolic blood pressure 64 mm[Hg] Kojo Medina MD Work Phone: [facility] 12-21-2023 09:39-0400 Heart rate 90 /min Kojo Medina MD Work Phone: [facility] 12-21-2023 09:39-0400 SaO2% (BldA) [Mass fraction] 94 % Kojo Medina MD Work Phone: [facility] 12-21-2023 09:39-0400 Systolic blood pressure 130 mm[Hg] Kojo Medina MD Work Phone: [facility] 10-10-2023 10:42-0400 Body height 170.2 cm Colin Lion MD Work Phone: [facility] 10-10-2023 10:42-0400 Body mass index (BMI) [Ratio] 48.55 kg/m2 Colin Lion MD Work Phone: [facility] 10-10-2023 10:42-0400 Body weight 140.62 kg Colin Lion MD Work Phone: [facility] 10-10-2023 10:42-0400 Diastolic blood pressure 58 mm[Hg] Colin Lion MD Work Phone: [facility] 10-10-2023 10:42-0400 Heart rate 41 /min Colin Lino MD Work Phone: [facility] 10-10-2023 10:42-0400 Systolic blood pressure 156 mm[Hg] Colin Lion MD Work Phone: [facility] 03-24-2023 07:25-0500 Body temperature 97.7 [degF] Sera Mayen MD Work Phone: [facility] 03-24-2023 07:25-0500 Diastolic blood pressure 75 mm[Hg] Sera Mayen MD Work Phone: [facility] 03-24-2023 07:25-0500 Heart rate 51 /min Sera Mayen MD Work Phone: [facility] 03-24-2023 07:25-0500 Respiratory rate 18 /min Sera Mayen MD Work Phone: [facility] 03-24-2023 07:25-0500 SaO2% (BldA) [Mass fraction] 95 % Sera Mayen MD Work Phone: [facility] 03-24-2023 07:25-0500 Systolic blood pressure 149 mm[Hg] Sera Mayen MD Work Phone: [facility] 03-24-2023 05:49-0500 Body height 170.2 cm Sera Mayen MD Work Phone: [facility] 03-24-2023 05:49-0500 Body mass index (BMI) [Ratio] 46.23 kg/m2 Sera Mayen MD Work Phone: [facility] 03-24-2023 05:49-0500 Body weight 133.9 kg Sera Mayen MD Work Phone: [facility] 09-08-2022 10:06-0400 Body height 170.18 cm Kojo Medina Work Phone: [facility] [employer] [address] DO Work Phone: 09-08-2022 10:06-0400 Body mass index (BMI) [Ratio] 46.52 kg/m2 Kojo Medina Work Phone: [facility] [employer] 600 DO Work Phone: 09-08-2022 10:06-0400 Body surface area Derived from formula 2.39 m2 Kojo Medina Work Phone: [facility] [employer] 600 DO Work Phone: 09-08-2022 10:06-0400 Body weight 134.72 kg Kojo Medina Work Phone: [facility] [address] DO Work Phone: 09-08-2022 10:06-0400 Diastolic blood pressure 70 mm[Hg] Kojo Medina Work Phone: [facility] [address] DO Work Phone: 09-08-2022 10:06-0400 Heart rate 40 /min Kojo Medina Work Phone: [facility] [address] DO Work Phone: 09-08-2022 10:06-0400 Systolic blood pressure 120 mm[Hg] Kojo Medina Work Phone: [facility] [address] DO Work Phone: 07-15-2022 11:00-0400 Body height 172.72 cm [employer] Other [facility] [employer] Other 07-15-2022 11:00-0400 Body mass index (BMI) [Ratio] 45 kg/m2 [employer] Other [facility] [employer] Other 07-15-2022 11:00-0400 Body weight 134.27 kg [employer] Other [facility] [employer] Other 07-15-2022 11:00-0400 Diastolic blood pressure 86 mm[Hg] [employer] Other [facility] [employer] Other 07-15-2022 11:00-0400 Systolic blood pressure 132 mm[Hg] [employer] Other [facility] [employer] Other 06-21-2022 11:00-0400 Body height 172.72 cm [employer] Other [facility] [employer] Other 06-21-2022 11:00-0400 Body mass index (BMI) [Ratio] 45 kg/m2 [employer] Other [facility] [employer] Other 06-21-2022 11:00-0400 Body weight 134.27 kg [employer] Other [facility] [employer] Other 06-21-2022 11:00-0400 Diastolic blood pressure 68 mm[Hg] [employer] Other [facility] [employer] Other 06-21-2022 11:00-0400 Systolic blood pressure 168 mm[Hg] [employer] Other [facility] [employer] Other 03-22-2022 12:00-0500 Diastolic blood pressure 69 mm[Hg] II Kojo Medina Work Phone: [facility] 03-22-2022 12:00-0500 Heart rate 57 /min II Kojo Medina Work Phone: [facility] 03-22-2022 12:00-0500 Respiratory rate 18 /min II Kojo Medina Work Phone: [facility] 03-22-2022 12:00-0500 SaO2% (BldA) [Mass fraction] 94 % II Kojo Medina Work Phone: [facility] 03-22-2022 12:00-0500 Systolic blood pressure 126 mm[Hg] II Kojo Medina Work Phone: [facility] 03-22-2022 08:00-0500 Body temperature 97.6 [degF] II Kojo Medina Work Phone: [facility] 03-22-2022 06:00-0500 Body weight 137.4 kg II Kojo Medina Work Phone: [facility] 03-21-2022 20:19-0500 Body height 170.18 cm II Kojo Medina Work Phone: [facility] 03-21-2022 18:26-0500 Diastolic blood pressure 84 mm[Hg] II Kojo Medina Work Phone: [facility] 03-21-2022 18:26-0500 Heart rate 81 /min II Kojo Medina Work Phone: [facility] 03-21-2022 18:26-0500 Respiratory rate 18 /min II Kojo Medina Work Phone: [facility] 03-21-2022 18:26-0500 SaO2% (BldA) [Mass fraction] 95 % II Kojo Medina Work Phone: [facility] 03-21-2022 18:26-0500 Systolic blood pressure 190 mm[Hg] II Kojo Medina Work Phone: [facility] 03-21-2022 11:45-0500 Body height 170.18 cm II Kojo Medina Work Phone: [facility] 03-21-2022 11:45-0500 Body weight 140 kg II Kojo Medina Work Phone: [facility] 03-21-2022 11:42-0500 Body temperature 98.1 [degF] II Kojo Medina Work Phone: [facility] 03-17-2022 16:57-0500 Body height 170.18 cm Colin Lion MD Work Phone: [facility] [address] DO Work Phone: 03-17-2022 16:57-0500 Body mass index (BMI) [Ratio] 48.55 kg/m2 Colin Lion MD Work Phone: [facility] [address] DO Work Phone: 03-17-2022 16:57-0500 Body surface area Derived from formula 2.44 m2 Colin Lion MD Work Phone: [facility] 250 DO Work Phone: 03-17-2022 16:57-0500 Body weight 140.62 kg Colin Lion MD Work Phone: [facility] [address] DO Work Phone: 03-17-2022 16:57-0500 Diastolic blood pressure 60 mm[Hg] Colin Lion MD Work Phone: [facility] [address] DO Work Phone: 03-17-2022 16:57-0500 Heart rate 60 /min Colin Lion MD Work Phone: [facility] [address] DO Work Phone: 03-17-2022 16:57-0500 Systolic blood pressure 138 mm[Hg] Colin Lion MD Work Phone: [facility] [address] DO Work Phone: 03-17-2022 14:37-0500 Body height 170.18 cm Colin Lion MD Work Phone: [facility] [address] DO Work Phone: 03-17-2022 14:37-0500 Body mass index (BMI) [Ratio] 48.55 kg/m2 Colin Lion MD Work Phone: [facility] [address] DO Work Phone: 03-17-2022 14:37-0500 Body surface area Derived from formula 2.44 m2 Colin Lion MD Work Phone: [facility] [address] DO Work Phone: 03-17-2022 14:37-0500 Body weight 140.62 kg Colin Lion MD Work Phone: [facility] [address] DO Work Phone: 03-17-2022 14:37-0500 Diastolic blood pressure 68 mm[Hg] Colin Lion MD Work Phone: [facility] [address] DO Work Phone: 03-17-2022 14:37-0500 Heart rate 60 /min Colin Lion MD Work Phone: [facility] [address] DO Work Phone: 03-17-2022 14:37-0500 Systolic blood pressure 148 mm[Hg] Colin Lion MD Work Phone: [facility] [address] DO Work Phone: 07-10-2021 11:09-0400 Blood Pressure Location Rajeev PATRICE [facility] 07-10-2021 11:09-0400 Diastolic blood pressure 70 mm[Hg] Rajeev IBRAHIM [facility] 07-10-2021 11:09-0400 Heart rate 88 /min Rajeev IBRAHIM [facility] 07-10-2021 11:09-0400 Respiratory rate 16 /min Rajeevcinthya IBRAHIM [facility] 07-10-2021 11:09-0400 Systolic blood pressure 120 mm[Hg] Rajeev IBRAHIM [facility] Encounters Encounter Date Encounter Type Care Provider [...] (HCC); Morbidly obese (CMS-HCC); BMI 40.0-44.9, adult ([facility]) Start: 11-19-2024 End: 11-19-2024 ambulatory LEENA ARMENTA Not Available Start: 11-14-2024 End: 11-14-2024 ambulatory Rajeev R PATRICE Facility: [facility] Start: 11-14-2024 End: 11-14-2024 Patient encounter procedure Rajeev IBRAHIM [facility] Start: 10-12-2024 End: 10-12-2024 Office outpatient visit 25 minutes Ro Pendleton MD Work Phone: [facility] Comment on above: Essential (primary) hypertension (Primary Dx); White coat syndrome with hypertension; Sinus bradycardia; Junctional rhythm; Mixed hyperlipidemia; BMI 45.0-49.9, adult (Multi); Former smoker Start: 10-12-2024 End: 10-12-2024 ambulatory [facility] Start: 09-17-2024 End: 09-17-2024 Bamboo flowsheet [...] Morbid (severe) obesity due to excess calories ([facility]); Body mass index (BMI) 45.0-49.9, adult (CMS/HCC) Start: 08-02-2024 End: 08-02-2024 ambulatory KOJO MEDINA Not Available Start: 07-17-2024 End: 07-17-2024 [facility]: [facility] Start: 07-17-2024 End: 07-17-2024 [facility] Work [facility] Start: 07-17-2024 End: 07-17-2024 Office outpatient new 30 [facility] Work Phone: [facility] Comment on above: Solares angioma (Prim natalie Dx); Actinic keratosis; Seborrheic keratosis; Melanocytic nevus of trunk; Lentigo simplex Start: 07-17-2024 End: 07-17-2024 [facility]ulatory [facility] Not [facility] Start: 03-22-2024 End: 03-22-2024 Bamboo [...] above: Routine general medi sanna examination at [facility] care facility (Primary Dx); ACP (advance care planning); Type 2 diabetes mellitus with other specified complication, with long-term current use of insulin (CMS/HCC); Type 2 diabetes mellitus with hyperglycemia (CMS/HCC); 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CMS/HCC) Start: 02-17-2024 End: 02-17-2024 ambulatory KOJO MEDINA Not Available Start: 02-01-2024 End: 02-01-2024 Bamboo flowsheet Lyudmila Duncan PT SKILLED Work Phone: [facility] Start: 02-01-2024 End: 02-01-2024 Bamboo flowsheet Lyudmial Duncan PT SKILLED Work Phone: [facility] Start: 02-01-2024 End: 02-01-2024 Office outpatient visit 25 minutes Lyudmila Duncan PT SKILLED Work Phone: [facility] Comment on [...] 01-25-2024 End: 01-25-2024 Orders Only Lyudmila Duncan PT SKILLED Work Phone: [facility] Comment on above: Elevated brain natri uretic peptide (BNP) level (Primary Dx) Start: 01-24-2024 End: 01-24-2024 Bamboo flowsheet Lyudmila Duncan PT SKILLED Work Phone: [facility] Start: 01-24-2024 End: 01-24-2024 Bamboo flowsheet Lyudmila Duncan PT SKILLED Work Phone: [facility] Start: 01-24-2024 End: 01-24-2024 Office outpatient visit 25 minutes Lyudmila Duncan PT SKILLED Work Phone: [facility] Comment on above: Shortness of breath (Primary Dx); Wheezing; First degree atrioventricular block; Pulse irregularity; Acute non-recurrent pansinusitis; Insomnia, unspecified type Start: 01-24-2024 End: 01-24-2024 ambulatory LYUDMILA DUNCAN Not Available Start: 01-13-2024 End: 01-13-2024 Office outpatient visit 25 minutes Ro Pendleton MD Work Phone: [facility] Comment on above: Benign essential hyp ertension (Primary Dx); Mixed hyperlipidemia; BMI 45.0-49.9, adult ([facility]); Sinus bradycardia; Former smoker; White coat syndrome with hypertension Start: 01-13-2024 End: 01-13-2024 ambulatory [facility] Start: 12-21-2023 End: 12-21-2023 Bamboo flowsheet Kojo Medina MD Work Phone: [facility] Start: 12-21-2023 End: 12-21-2023 Bamboo flowsheet Kojo Medina MD Work Phone: [facility] Start: 12-21-2023 End: 12-21-2023 Office outpatient visit 25 minutes Kojo Medina MD Work Phone: [facility] Comment on above: Type 2 diabetes carina itus with other specified complication, with long-term current use of insulin ([facility]) (Primary Dx); Mixed hyperlipidemia ([facility]); Upper respiratory tract infection, unspecified type; Type 2 diabetes mellitus with hyperglycemia ([facility]); 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[facility]) Start: 12-21-2023 End: 12-21-2023 ambulatory KOJO MEDINA Not Available Start: 10-10-2023 End: 10-10-2023 Office outpatient visit 25 minutes Colin Lion MD Work Phone: [facility] Comment on above: Mixed hyperlipidemia (Primary Dx); Benign essential hypertension; Bradycardia Start: 08-02-2023 End: 08-03-2023 Pre-admission assessment TAMMY MEDINA [facility] Start: 07-22-2023 End: 07-22-2023 Patient encounter procedure Rajeev IBRAHIM [facility] Start: 03-24-2023 End: 03-24-2023 ambulatory [facility] Start: 03-24-2023 End: 03-24-2023 Subsequent hospital visit by physician Sera Mayen MD Work Phone: [facility] [place] Comment on above: Carpal tunnel syndro me, right upper limb (Primary Dx) Start: 03-21-2023 End: 03-22-2023 ambulatory SERA [facility] Start: 03-21-2023 End: 03-21-2023 Office outpatient new 45 minutes Sera Mayen MD Work Phone: [facility] Comment on above: Carpal tunnel syndro me of right wrist (Primary Dx) Start: 09-08-2022 Office outpatient vi sit 15 minutes Kojo Medina Work Phone: [facility] 600 DO Work Phone: Start: 09-08-[address] Kojo Medina II Facility: Start: 08-24-2022 ambulatory NARENDRANATH LAKSHMIPATHY . Facility:[facility] Start: 08-14-2022 End: 08-15-[address] KOJO MEDINA Facility:[facility] Start: 08-12-2022 End: 08-13-2022 ambulatory NARENDRANATH LAKSHMIPATHY . Facility:[facility] Start: 07-20-2022 End: 07-20-2022 ambulatory NARENDRANATH LAKSHMIPATHY . Facility:[facility] Start: 07-15-2022 End: 07-15-2022 ambulatory Karime Caraballo Other [facility] [employer] Other Start: 07-15-2022 Office outpatient vi sit 15 minutes Karime Rashmi [facility] Start: 07-08-2022 End: 07-09-2022 ambulatory NARENDRANATH LAKSHMIPATHY . Facility:[facility] Start: 07-02-2022 End: 07-03-[address] TAMMY DANIELLE Facility:[facility] Start: 06-21-2022 End: 06-21-2022 ambulatory Karime Caraballo Other [facility] [employer] Other Start: 06-21-2022 Office outpatient ne w 45 minutes Karime Rashmi [facility] Start: 06-15-2022 End: 06-16-2022 ambulatory JOYA MCRAE Facility:[facility] Start: 05-04-2022 End: 05-05-[address] AGUILAR SWEENEY . Facility:[facility] Start: 04-30-2022 End: 05-01-[address] KOJO MEDINA Facility:[facility] Start: 03-22-[address] Kojo Medina II Facility:[id number] Start: 03-21-2022 End: 03-22-2022 ambulatory Jakub Juliana Facility:[facility] Start: 03-21-2022 End: 03-22-2022 Evaluation and management of inpatient II Kojo Medina Work Phone: [facility] [place] [facility] Start: 03-21-2022 End: 03-22-2022 observation encounter II Kojo Medina Work Phone: [facility] Work Phone: Start: 03-17-2022 Office outpatient vi sit 25 minutes Colin Lion MD Work Phone: [facility] 250 DO Work Phone: Start: 03-17-[address] Kojo Medina II Facility: Start: 10-19-2021 End: 10-20-[address] KOJO MEDINA Facility: Start: 07-10-2021 End: 07-10-2021 Patient encounter procedure Rajeev IBRAHIM [facility] Procedures Date Procedure Procedure Detail Performing Clinician [...] Start: 01-16-2026 Glaucoma screening Diabetes: Retinopathy Screening [facility] Start: 09-17-2025 Medicare Annual Wellness (AWV) Medicare Annual Wellness (AWV) [facility] Start: 08-09-2025 End: 08-09-2025 Patient encounter procedure 08/09/2025 10:50 AM EDT Office Visit [facility] [address] [facility] [address] [place] [id number] Ro Pendleton MD [address] [place] [address] [facility] Start: 07-17-2025 End: 07-17-2025 Patient encounter procedure [facility] Start: 02-19-2025 Hemoglobin A1c measurement Diabetes: Hemoglobin A1C [facility] Start: 02-17-2025 Medicare Annual Wellness Visit Medicare Annual Wellness Visit (AWV) [facility] Start: 02-16-2025 Medicare Annual Wellness (AWV) Medicare Annual Wellness (AWV) [facility] Start: 01-31-2025 Urine screening for protein Diabetes: Urine Protein Screening [facility] Start: 01-12-2025 End: 10-12-2025 Alanine aminotransferase [Enzymatic activity/volume] in Serum or Plasma by With P-5'-P Alanine Aminotransferase Lab Routine Mixed hyperlipidemia Expected: 01/12/2025, Expires: 10/12/2025 [facility] Work Phone: Comment on above: Expected: 01/12/2025, Expires: Start: 01-12-2025 End: 10-12-2025 Aspartate aminotransferase [Enzymatic activity/volume] in Serum or Plasma by With P-5'-P Aspartate Aminotransferase Lab Routine Mixed hyperlipidemia Expected: 01/12/2025, Expires: 10/12/2025 [facility] Service Area Work Phone: Comment on above: Expected: 01/12/2025, Expires: Start: 01-12-2025 End: 10-12-2025 Lipid 1996 panel - Serum or Plasma Lipid Panel Lab Routine Mixed hyperlipidemia Expected: 01/12/2025, Expires: 10/12/2025 [facility] Work Phone: Comment on above: Expected: 01/12/2025, Expires: Start: 12-20-2024 End: 12-20-2024 Patient encounter procedure 12/20/2024 9:30 AM EDT Office Visit [facility] [address] [place] [address] Leena Armenta PA [address] [place] [address] [facility] Start: 12-18-2024 Hemoglobin A1c measurement Diabetes: Hemoglobin A1C [facility] Start: 12-16-2024 Glaucoma screening Diabetes: Retinopathy Screening [facility] Start: 12-03-2024 Influenza vaccination [facility] Start: 11-19-2024 End: 11-19-2024 Patient encounter procedure [facility] Comment on above: Arrived Start: 11-02-2024 Hemoglobin A1c measurement Diabetes: Hemoglobin A1C [facility] Start: 10-12-2024 End: 10-12-2024 Patient encounter procedure 10/12/2024 10:20 AM EDT Office Visit [facility] [address] [facility] [address] [place] [address] Ro Pendleton MD [address] [facility] [address] [place] [address] [facility] Start: 09-17-2024 End: 09-17-2024 Patient encounter procedure [...] 07-29-2024 Screening for malignant neoplasm of colon [facility] Start: 07-24-2024 Urine screening for protein Diabetes: Urine Protein Screening [facility] Start: 07-17-2024 End: 07-17-2024 Patient encounter procedure [facility] Comment on above: Arrived Start: 06-20-2024 Hemoglobin A1c measurement Diabetes: Hemoglobin A1C [facility] Start: 05-19-2024 Hemoglobin A1c measurement Diabetes: Hemoglobin A1C [facility] Start: 03-22-2024 End: 03-22-2024 Patient encounter procedure [facility] Comment on above: Arrived Start: 03-21-2024 Hemoglobin A1c measurement Diabetes: Hemoglobin A1C [facility] Start: 02-22-2024 End: 02-22-2024 Patient encounter procedure [facility] Start: 02-01-2024 End: 01-31-2025 CBC panel - Blood by Automated count CBC Lab Routine Type 2 diabetes mellitus without complication, with long-term current use of insulin (CMS/HCC) Benign essential hypertension (CMS/HCC) Expected: 02/01/2024 (Approximate), Expires: 01/31/2025 [facility] Comment on above: Expected: 02/01/2024 (Approximate), Expi res: 01/31/2025 Start: 02-01-2024 End: 01-31-2025 Comprehensive metabolic 2000 panel - Serum or Plasma Comprehensive metabolic panel Lab Routine Type 2 diabetes mellitus without complication, with long-term current use of insulin (CMS/HCC) Benign essential hypertension (CMS/HCC) BPH with urinary obstruction Expected: 02/01/2024 (Approximate), Expires: 01/31/2025 [facility] Work Phone: Comment on above: Expected: 02/01/2024 (Approximate), Expi res: 01/31/2025 Start: 02-01-2024 End: 01-31-2025 Lipid 1996 panel - Serum or Plasma Lipid panel Lab Routine Mixed hyperlipidemia (CMS/HCC) Expected: 02/01/2024 (Approximate), Expires: 01/31/2025 [facility] Comment on above: Expected: 02/01/2024 (Approximate), Expi res: 01/31/2025 Start: 02-01-2024 End: 01-31-2025 Prostate specific Ag [Mass/volume] in Serum or Plasma PSA Lab Routine Prostate cancer screening Expected: 02/01/2024 (Approximate), Expires: 01/31/2025 [facility] Comment on above: Expected: 02/01/2024 (Approximate), Expi res: 01/31/2025 Start: 02-01-2024 End: 01-31-2025 TSH W/REFLEX TO FT4 TSH W/REFLEX TO FT4 Lab Routine Body mass index (BMI) 45.0-49.9, adult (CMS/HCC) Screening for thyroid disorder Expected: 02/01/2024 (Approximate), Expires: 01/31/2025 [facility] Comment on above: Expected: 02/01/2024 (Approximate), Expi res: 01/31/2025 Start: 02-01-2024 End: 02-01-2024 Patient encounter procedure 02/01/2024 10:30 AM EDT Office Visit [facility] DAUGH[facility] [address] [facility] [address] [place] [id number] Lyudmila Duncan PT SKILLED [address] [facility] [address] [place] [address] Arrived [facility] DAUGH[facility] Comment on above: Arrived Start: 01-24-2024 End: 01-23-2025 Natriuretic peptide B [Mass/volume] in Blood B-type natriuretic peptide Lab Routine Shortness of breath Wheezing First degree atrioventricular block Pulse irregularity Expected: 01/24/2024 (Approximate), Expires: 01/23/2025 [facility] Comment on above: Expected: 01/24/2024 (Approximate), Expi res: 01/23/2025 Start: 01-24-2024 End: 01-23-2025 XR Chest 2 Views XR chest 2 views Imaging Routine Shortness of breath Wheezing Expected: 01/24/2024, Expires: 01/23/2025 [facility] Work Phone: Comment on above: Expected: 01/24/2024, Expires: Start: 01-24-2024 End: 01-24-2024 Patient encounter procedure 01/24/2024 10:30 AM EDT Office Visit [facility] [address] [place] [address] Lyudmila Duncan NP [address] [place] [address] Arrived [facility] Comment on above: Arrived Start: 01-21-2024 Medicare Annual Wellness (AWV) Medicare Annual Wellness (AWV) [facility] Start: 01-19-2024 Hemoglobin A1c measurement Diabetes: Hemoglobin A1C [facility] Start: 01-13-2024 End: 01-13-2024 Patient encounter procedure 01/13/2024 10:10 AM EDT Office Visit [facility] [address] [facility] [address] [place] [address] Ro Pendleton MD [address] [facility] [address], [address] [place] [address] [facility] Start: 12-21-2023 End: 12-21-2023 Patient encounter procedure 12/21/2023 9:45 AM EDT Office Visit [facility] [address] [place] [address] Kojo Medina MD [address] [place] [address] Arrived [facility] Comment on above: Arrived Start: 12-04-2023 COVID-19 Vaccine () COVID-19 Vaccine ( season) [facility] Start: 12-04-2023 COVID-19 Vaccine ( season) COVID-19 Vaccine ( season) [facility] Start: 12-04-2023 Influenza vaccination Influenza Vaccine (#1) [facility] Start: 09-07-2023 FUV, Provider: Colin Lion, Status: Pen, Time: 9:50 AM FUV, Provider: Colin Lion, Status: Pen, Time: 9:50 AM [facility] 600 DO Work Phone: Start: 09-07-2023 End: 09-07-2023 Patient encounter procedure 09/07/2023 9:50 AM EDT Office Visit [place] [address] [place] [address] Colin Lion MD [address] [facility] [address], [address] [place] [address] [facility] Start: 05-21-2023 COVID-19 Vaccine () COVID-19 Vaccine () [facility] Start: 04-08-2023 End: 04-08-2023 Patient encounter procedure 04/08/2023 11:15 AM EST Office Visit [facility] [address] [place] [address] Sera Oswald MD [address] [facility], [address] [place] [address] [id number] [facility] Start: 03-15-2023 COVID-19 Vaccine (4 - Moderna series) COVID-19 Vaccine (4 - Moderna series) [facility] Start: 12-15-2022 Glaucoma screening Diabetes: Retinopathy Screening [facility] Start: 09-08-2022 FUV, Provider: Colin Lion, Status: Pen, Time: 9:50 AM FUV, Provider: Colin Lion, Status: Pen, Time: 9:50 AM [facility] 250 DO Work Phone: Start: 04-07-2022 NURSEVST, Provider: DEREK GATES AUDITOR APPRAISER 1,[id number], Status: Pen, Time: 1:30 PM NURSEVST, Provider: DEREK GATES AUDITOR APPRAISER 1,[id number], Status: Pen, Time: 1:30 PM [facility]: Start: 03-22-2022 [facility] Start: 03-21-2022 Referral to juvenile justice officer [facility] Start: 03-21-2022 Hospital admission [facility] Start: 2015 Abdominal aortic aneurysm screening Abdominal Aortic Aneurysm (AAA) Screening [facility] Start: 2010 Hepatitis B Vaccines (1 of 3 - Risk 3-dose series) Hepatitis B Vaccines (1 of 3 - Risk 3-dose series) [facility] Start: 2010 RSV High Risk: (Elderly (60+) or Population) (1 - Risk 60-74 years 1-dose series) RSV High Risk: (Elderly (60+) or Population) (1 - Risk 60-74 years 1-dose series) [facility] Start: 2010 RSV patients and/or patients aged 60+ years (1 - 1-dose 60+ series) RSV patients and/or patients aged 60+ years (1 - 1-dose 60+ series) [facility] Start: 1972 DTaP/Tdap/Td Vaccines (1 - Tdap) DTaP/Tdap/Td Vaccines (1 - Tdap) [facility] Start: 1969 Hepatitis A Vaccines (1 of 2 - Risk 2-dose series) Hepatitis A Vaccines (1 of 2 - Risk 2-dose series) [facility] Start: 1968 Hepatitis C screening Hepatitis C Screening [facility] Start: 1960 Diabetic foot examination Diabetes: Foot Exam [facility] Start: 1960 Glaucoma screening Diabetes: Retinopathy Screening [facility] Start: 1950 Hemoglobin A1c measurement Diabetes: Hemoglobin A1C [facility] Start: 1950 Lipid panel Lipid Panel [facility] Start: 1950 Medicare Annual Wellness Visit Medicare Annual Wellness Visit (AWV) [facility] Start: 1950 Screening for malignant neoplasm of colon [facility] Microalbumin/Creatin ine panel in random Urine Microalbumin / creatinine urine ratio Lab Routine Type 2 diabetes mellitus with other specified complication, with long-term current use of insulin (HCC) Ordered: 11/19/2024 [facility] Work Phone: Comment on above: Ordered: 11/19/2024 Patient referral [facility] Work Phone: Immunizations Immunization Date Immunization Notes Care Provider [facility] [employer] 02-04-2023 influenza virus vaccine, unspecified formulation Colin Lion MD Work Phone: [facility] Work Phone: 01-18-2023 influenza, seasonal, injectable Kojo Medina MD Work Phone: [facility] 01-18-2023 Influenza, Seasonal, Quadrivalent, Adjuvanted Colin Lion MD Work Phone: [facility] Work Phone: 01-18-2023 Pfizer COVID-19 vaccine, Fall 2022, 12 years and older, (30mcg/0.3mL) Colin Lion MD Work Phone: [facility] Work Phone: 01-18-2023 influenza virus vaccine, unspecified formulation Kojo Medina MD Work Phone: [facility] 01-23-2022 influenza, high dose seasonal, preservative-free Colin Lion MD Work Phone: [facility] Work Phone: 01-22-2022 Fluad Quadrivalent 0 .5 ML Intramuscular Prefilled Syringe Colin Lion MD Work Phone: [facility] 250 DO Work Phone: 01-22-2022 influenza virus vaccine, unspecified formulation Rajeev IBRAHIM [facility] 12-21-2021 zoster vaccine recombinant Colin Lion MD Work Phone: [facility] 250 DO Work Phone: 03-12-2021 Fluad Quadrivalent 0 .5 ML Intramuscular Prefilled Syringe Colin Lion MD Work Phone: [facility] 250 DO Work Phone: 03-12-2021 influenza virus vaccine, unspecified formulation Rajeev IBRAHIM [facility] 02-09-2021 Moderna COVID-19 Vaccine 100 MCG/0.5ML Intramuscular Suspension Colin Lion MD Work Phone: [facility] 02-02-2021 SARS-CoV-2 (COVID-19 ) Ad26 vaccine, recombinant Rajeev IBRAHIM [facility] 12-02-2020 zoster vaccine recombinant Colin Lion MD Work Phone: [place] [address] DO Work Phone: 06-26-2020 Moderna COVID-19 Vaccine 100 MCG/0.5ML Intramuscular Suspension Colin Lion MD Work Phone: [facility] 06-02-2020 SARS-CoV-2 (COVID-19 ) Ad26 vaccine, recombinant Rajeev IBRAHIM [facility] 05-29-2020 Moderna COVID-19 Vaccine 100 MCG/0.5ML Intramuscular Suspension Colin Lion MD Work Phone: [facility] 05-05-2020 SARS-CoV-2 (COVID-19 ) Ad26 vaccine, recombinant Rajeev IBRAHIM [facility] 01-03-2020 influenza virus vaccine, unspecified formulation Colin Lion MD Work Phone: [facility] 250 DO Work Phone: 01-03-2020 influenza, seasonal, injectable Colin Lion MD Work Phone: [facility] Work Phone: 02-19-2019 influenza virus vaccine, unspecified formulation Rajeev IBRAHIM [facility] 02-19-2019 influenza, high dose seasonal, preservative-free Colin Lion MD Work Phone: [facility] 250 DO Work Phone: 01-02-2019 influenza virus vaccine, unspecified formulation Colin Lion MD Work Phone: [facility] 01-02-2019 influenza, injectabl e, quadrivalent, preservative free Colin Lion MD Work Phone: [facility] Work Phone: 01-02-2019 influenza, seasonal, injectable Ro Pendleton MD Work Phone: [facility] Work Phone: 01-25-2018 Flu vaccine, quadrivalent, high-dose, preservative free, age 65y+ (FLUZONE) Colin Lion MD Work Phone: [facility] Work Phone: 01-25-2018 influenza virus vaccine, unspecified formulation Rajeev IBRAHIM [facility] 01-25-2018 influenza, high dose seasonal, preservative-free Colin Lion MD Work Phone: [facility] 03-29-2017 influenza virus vaccine, unspecified formulation Rajeev IBRAHIM [facility] 03-29-2017 seasonal influenza, intradermal, preservative free Colin Lion MD Work Phone: [facility] 04-04-2016 pneumococcal conjuga te vaccine, 13 valent Colin Lion MD Work Phone: [facility] 250 DO Work Phone: 01-27-2016 influenza virus vaccine, unspecified formulation Rajeev IBRAHIM [facility] 01-27-2016 influenza, injectabl e, quadrivalent, contains preservative Colin Lion MD Work Phone: [facility] 250 DO Work Phone: 01-27-2016 influenza, injectabl e, quadrivalent, preservative free Colin Lion MD Work Phone: [facility] Work Phone: 01-07-2016 pneumococcal polysaccharide vaccine, 23 valsherri Lion MD Work Phone: [facility] Work Phone: 07-29-2015 pneumococcal polysaccharide vaccine, 23 valsherri Lion MD Work Phone: [facility] Work Phone: 04-18-2013 seasonal influenza, intradermal, preservative free Colin Lion MD Work Phone: [facility] Work Phone: Payers Date Payer Category Payer Self-pay 2021 Medicaid [employer] MEDICARE A DVANTAGE [id number] 2021 Medicare [id number] 2021 Medicare (Managed Care) BHANU COOK MEDICARE [id number] 1959 Private Health Insurance [id number] 1950 Unknown [id number] 2.16.840.1.436083.3.579.2. 593 1950 Unknown [id number] 2.16.840.1.806885.3.579.2. 593 1950 Unknown [id number] 2.16.840.1.417288.3.579.2. 593 1950 Unknown [id number] 2.16.840.1.653870.3.579.2. 593 1950 Unknown [id number] 2.16.840.1.638808.3.579.2. 593 1950 Unknown [id number] 2.16.840.1.509503.3.579.2. 593 1950 Unknown [id number] 2.16.840.1.870308.3.579.2. 593 1950 Unknown [id number] 2.16.840.1.885586.3.579.2. 593 1950 Unknown [id number] 2.16.840.1.961828.3.579.2. 593 1950 Unknown [id number] 2.16.840.1.026080.3.579.2. 593 1950 Unknown [id number] 2.16.840.1.691824.3.579.2. 593 1950 Unknown [id number] 2.16.840.1.002002.3.579.2. 356 1950 Unknown [id number] 2.16.840.1.308603.3.579.2. 356 1950 Unknown [id number] 2.16.840.1.830798.3.579.2. 356 1950 Unknown [id number] 2.16.840.1.202031.3.579.2. 1246 1950 Unknown [id number] 2.16.840.1.832473.3.579.2. 1246 1950 Unknown [id number] 2.16.840.1.172334.3.579.2. 1244 1950 Unknown [id number] 2.16.840.1.992820.3.579.2. 1244 1950 Unknown [id number] 2.16.840.1.906882.3.579.2. 727 1950 Unknown [id number] 2.16.840.1.372784.3.579.2. 727 1950 Unknown [id number] 2.16.840.1.982956.3.579.2. 1259 1950 Unknown [id number] 2.16.840.1.715475.3.579.2. 1259 1950 Unknown [id number] 2.16.840.1.992037.3.579.2. 1259 1950 Unknown [id number] 2.16.840.1.149698.3.579.2. 1259 1950 Unknown [id number] 2.16.840.1.541916.3.579.2. 1259 1950 Unknown [id number] 2.16.840.1.801351.3.579.2. 1259 1950 Unknown [id number] 2.16.840.1.824332.3.579.2. 1259 1950 Unknown [id number] 2.16.840.1.552034.3.579.2. 1259 1950 Unknown [id number] 2.16.840.1.935557.3.579.2. 1259 Unknown [employer] Unknown [facility] [id number] Unknown [id number] 2.16.840.1.156739.3.579.2. 531 Social History Date Type Detail Facility Start: 07-10-2021 End: 11-19-2024 Tobacco smoking status Ex-smoker (finding) [facility] Tobacco smoking status Never [facility] Start: 03-24-2023 End: 12-14-2023 Sex Assigned At Male [facility] Start: 03-22-2023 End: 12-14-2023 Daily caffeine consumption, 1 serving a day Daily caffeine consumption, 1 serving a day [facility] Comment on above: 2-3 drinks a month; quit smoking 20+year s ago; Start: 1950 Sex Assigned At Male [facility] consumption unknown [facility] Work Phone: Start: 1950 Sex Assigned At Not on file [facility] Work Phone: Start: 03-11-2023 End: 10-10-2023 Exposure to SARS-CoV-2 (event) Not sure [facility] Start: 04-04-1964 End: 04-04-1999 History of tobacco use Current smoker [facility] Work Phone: Start: 04-04-1964 End: 04-04-1999 History of tobacco use Cigarette Smoker [facility] Work Phone: Start: 03-22-2023 End: 10-10-2023 Tobacco use and exposure Smokeless tobacco non-user [facility] Work Phone: Start: 03-24-2023 End: 11-19-2024 Alcohol intake Current drinker of alcohol (finding) [facility] Work Phone: Within the last year , have you been afraid of your partner or ex-partner? No [facility] Do you belong to any clubs or organizations such as mandaeism groups, unions, fraternal or athletic groups, or [...] End: 11-19-2024 Alcoholic beverage intake Ex-drinker (finding) [facility] How often do you nee d to have someone help you when you read instructions, pamphlets, or other written material from your doctor or pharmacy [SILS] Never [facility] Start: 10-12-2024 Alcohol Comment 1 beer a month [facility] Work Phone: Sexual Orientation [facility] Start: 08-09-2017 Sex Male (finding) [facility] Medical Equipment Procedure Code Equipment Code Equipment Original Text Equipment Identifier Dates [id number] Start: 07-01-2022 End: 09-17-2024 USE 1 SUBCUTANEO USLY TWICE DAILY [id number] Start: 09-01-2023 USE 1 SYRINGE TW ICE DAILY [id number] Start: 04-11-2024 Goals Date Patient Goal Desired Activity /State Functional Status Date Assessment Result Facility 11-19-2024 Patient Health Quest ionnaire 2 item (PHQ-2) [Reported] [facility] 08-02-2024 Patient Health Quest ionnaire 2 item (PHQ-2) [Reported] [facility] 03-22-2022 Functional status Patient at Baseline [facility] Work Phone: Mental Status Date Assessment Result Facility 03-22-2022 Cognitive function Cognitive Sta tus Patient at Baseline [facility] Work Phone: Clinical Notes 07-10-2021 to 11-19-2024 [...] were running [phone] Pt did not see huc he notes he does not need to see one Pt is going to call and sched to see a PT SKILLED in [place] that treats his brother for diabetes and has his well controlled Does not eat breakfast, not much for lunch, and admits eats too much at dinner. Admits his partner, who is also a diabetic, she is not cooking to watch the [employer]. Drinks 6 bottles of water a day. [...] 10 mg by mouth Daily Continuous Glucose Jawbone Puller (FreeStyle Radha 3 [place]) device USE DIRECTED 1 each 0 Continuous Glucose Sensor (FreeStyle Radha 3 Sensor) [facility] Apply 1 patch topically every 14 (fourteen) [...] Facet Injections PARTIAL KNEE ARTHROPLASTY Left 2002 OK TOTAL HIP ARTHROPLASTY Right 10/16/2014 SPINE SURGERY [...] would like to try to see the PT SKILLED first that his brother sees, and if [...] pt today regarding glycemic control. Morbidly obese ([facility]) Encouraged pt to work on portion control for his dinners, and to add in some sort of small protein based snacks during the day. Limit simple sugars. BMI 40.0-44.9, adult ([facility]) Patient has lost 3 pounds since his last appointment. Encouraged continued gradual weight loss. Follow up in about 4 weeks (around 12/17/2024) for Diabetes. documented in this encounter [facility] 11-14-2024 Hospital Discharge instructions Patient Education 11/14/2024 [...] your health care provider. General instructions Take ynmt-scj-efcfucx and prescription medicines only as told by [...] provider. Document Revised: 12/08/2020 Document Reviewed: 12/08/2020 [facility] Patient Education 2023 Reimage. Follow Up Care 11/07/2024 10:54:53 With:PATRICE SOTELO, Rajeev John, URL Address: [address] [place] [phone] When: Unknown Comments:4 mos (new med) [facility] 11-14-2024 Note Patient Education Obstetrics and [...] health care provider. General instructions ??? Take wldc-bej-hrhrldn and prescription medicines only as told by [...] drink, and whe (more content not included)... [facility] 10-12-2024 History of Present illness Narrative Chief [...] discussion and plan. documented in this encounter [facility] Work Phone: 10-12-2024 Instructions Crys Gil LPN [...] be sent through Care Everywhere.Heart Healthy Diet (Brazilian)documented in this encounter [facility] Work Phone: 09-17-2024 History of Present illness [...] with meals. 180 tablet 3 Continuous Glucose Jawbone Puller (FreeStyle Radha 3 [place]) device USE DIRECTED 1 each 0 Continuous [...] Do you have a medical power of attorney at law?: (Patient-Rptd) (P) Yes Who is your medical power of attorney at law?: (Patient-Rptd) (P) Mary Matilde Objective : BP [...] long-term current use of insulin ([facility]) - POCT Glycated hemoglobin, total - cyclobenzaprine (Flexeril) 10 MG tablet; Take 1 tablet (10 mg) by mouth every 8 (eight) hours if needed for muscle spasms - Refer for Diabetic Education Morbidly obese ([facility]) Mixed hyperlipidemia Benign essential hypertension Statin intolerance - Myalgias. Orders Placed This Encounter Procedures POCT Glycated hemoglobin, total Electronically signed by Kojo Medina MD on September 17, 2024 documented in this encounter [facility] 08-02-2024 History of Present illness Narrative Images [...] by mouth Daily Blood Glucose Monitoring Suppl (Cardioroboticsuch Verio Flex System) w/Device kit carvedilol (Coreg) [...] SYRINGE TWICE DAILY 200 each 3 Lancets (Cardioroboticsuch Delica Plus [id number]) misc Daily metFORMIN (Glucophage) 500 MG tablet [...] Facet Injections PARTIAL KNEE ARTHROPLASTY Left 2002 OK TOTAL HIP ARTHROPLASTY Right 10/16/2014 SPINE SURGERY [...] every 14 (fourteen) days - Continuous Glucose Jawbone Puller (FreeStyle Radah 3 [place]) device; 1 Device continuously - insulin NPH-insulin [...] days Body mass index (BMI) 45.0-49.9, adult ([facility]) Follow up in about 4 weeks (around 08/30/2024) for F/U med changes, DM- A1C. documented in this encounter [facility] 07-17-2024 History of Present illness Narrative Skin [...] 2. SOLARES ANGIOMA Right Postauricular Area Scattered oslares-red papule(s). The patient was informed that angiomas [...] limited to risks of scarring, darker or bush and vine fruit crop farmer pigmentary changes, recurrence, incomplete removal and infection. [...] Visit: 1 year documented in this encounter [facility] 03-22-2024 History of Present illness Narrative Images [...] 100 tablet 3 Blood Glucose Monitoring Suppl (Elastagenio Flex System) w/Device kit USE 1 TO [...] SYRINGE TWICE DAILY 200 each 3 Lancets (Cardioroboticsuch Delica Plus [id number]) misc Daily. metFORMIN (Glucophage) 500 MG tablet Take 1 tablet (500 mg) by mouth in the morning and 1 tablet (500 mg) in the evening. Take with meals. 60 tablet 11 Bebo Verio test strip 1 each by Other [...] Facet Injections PARTIAL KNEE ARTHROPLASTY Left 2002 OK TOTAL HIP ARTHROPLASTY Right 10/16/2014 SPINE SURGERY [...] as insurance will start covering. Call from [place] for Rx in April. Follow up in about 6 months (around 09/20/2024), or When he returns from [place].. documented in this encounter [facility] 02-17-2024 History of Present illness Narrative Images [...] 100 tablet 3 Blood Glucose Monitoring Suppl (Bebo Verio Flex System) w/Device kit USE 1 [...] SYRINGE TWICE DAILY 200 each 3 Lancets (Cardioroboticsuch Delica Plus [id number]) misc Daily. Bebo Verio test strip 1 each by Other [...] Do you have a medical power of attorney at law?: (Patient-Rptd) (P) Yes Who is your medical power of attorney at law?: (Patient-Rptd) (P) Mary Matilde daughter Objective : [...] complication, with long-term current use of insulin ([facility]) - POCT Glycated hemoglobin, total - [...] (CMS/HCC) 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[facility]) Follow up in about 6 weeks (around 03/30/2024) for DM- A1C, F/U med changes, Perform Labwork (CMP on RTC). Orders Placed This Encounter Procedures POCT Glycated hemoglobin, total Electronically signed by Kojo Medina MD on February 17, 2024 documented in this encounter [facility] 02-01-2024 History of Present illness Narrative Images [...] 6 tablet 0 Blood Glucose Monitoring Suppl (Elastagenio Flex System) w/Device kit USE 1 TO [...] SYRINGE TWICE DAILY 200 each 3 Lancets (Bebo Delica Plus [id number]) misc Daily. [] methylPREDNISolone (Medrol Dospak) 4 MG tablets Follow schedule on package instructions 21 tablet 0 Cardioroboticsuch Verio test strip 1 each by Other [...] Facet Injections PARTIAL KNEE ARTHROPLASTY Left 2002 OK TOTAL HIP ARTHROPLASTY Right 10/16/2014 SPINE SURGERY [...] long-term current use of insulin (CMS/[facility]) - Comprehensive metabolic panel; Future - [...] follow-ups on file. documented in this encounter [facility] 01-24-2024 History of Present illness Narrative Images [...] 100 tablet 3 Blood Glucose Monitoring Suppl (Bebo Verio Flex System) w/Device kit USE 1 [...] SYRINGE TWICE DAILY 200 each 3 Lancets (SHADOWTouch Delica Plus [id number]) misc Daily. SHADOWTouch Verio test strip 1 each by Other [...] Facet Injections PARTIAL KNEE ARTHROPLASTY Left 2002 OK TOTAL HIP ARTHROPLASTY Right 10/16/2014 Visit Vitals [...] follow-ups on file. documented in this encounter [facility] 01-13-2024 History of Present illness Narrative Subjective [...] discussion and plan. documented in this encounter [facility] Work Phone: 01-13-2024 Instructions Kelly Pina LPN [...] mg DASH diet documented in this encounter [facility] Work Phone: 12-21-2023 History of Present illness [...] 100 tablet 3 Blood Glucose Monitoring Suppl (Bebo Verio Flex System) w/Device kit USE 1 [...] SUBCUTANEOUSLY TWICE DAILY 180 each 0 Lancets (SHADOWTouch Delica Plus [id number]) misc Daily. Bebo Verio test strip 1 each by Other [...] Facet Injections PARTIAL KNEE ARTHROPLASTY Left 2002 OK TOTAL HIP ARTHROPLASTY Right 10/16/2014 Visit Vitals [...] for DM- A1C. documented in this encounter [facility] 10-10-2023 History of Present illness Narrative Subjective [...] rhythm with Wenke Bach phenomenon and prolonged OK intervals. It is also possible that he [...] discussion and plan. documented in this encounter [facility] Work Phone: 10-10-2023 Instructions Neeta Lopez LPN [...] instructions on exercise. documented in this encounter [facility] Work Phone: 03-24-2023 Miscellaneous Notes CARPAL TUNNEL RELEASE- LOCAL PREOPERATIVE DIAGNOSIS: RIGHT Carpal Tunnel Syndrome POSTOPERATIVE DIAGNOSIS: RIGHT Carpal Tunnel Syndrome PROCEDURE: RIGHT Open Carpal Tunnel Release (09086) SURGEON: SERA EUCEDA MD ANESTHESIA: Local. COMPLICATIONS: [...] his significant other. documented in this encounter [facility] Work Phone: 03-24-2023 Note Formatting of this n ote might be different from the original. CARPAL TUNNEL RELEASE- LOCAL PREOPERATIVE DIAGNOSIS: RIGHT Carpal Tunnel Syndrome POSTOPERATIVE DIAGNOSIS: RIGHT Carpal Tunnel Syndrome PROCEDURE: RIGHT Open Carpal Tunnel Release ([id number]) SURGEON: SERA EUCEDA MD ANESTHESIA: Local. COMPLICATIONS: [...] length of the case. Sera Mayen MD [facility] Work Phone: 03-24-2023 Hospital Discharge instructions Radha [...] could happen? Long-term hand numbness or weakness Political Geographer weakness Loss of function in the hand [...] and wrist. More numbness in the hand Political Geographer is weaker documented in this encounter [facility] Work Phone: 03-24-2023 History and physical note Updated H&P Patient presents for local hand surgery. Prior notes, medication, PMH, PSH, allergies reviewed. PE CTAB RRR Abdomen soft Plan to proceed with elective surgery today All questions addressed [facility] Work Phone: 03-24-2023 History and physical note Updated H&P Patient presents for local hand surgery. Prior notes, medication, PMH, PSH, allergies reviewed. PE CTAB RRR Abdomen soft Plan to proceed with elective surgery today All questions addressed documented in this encounter [facility] Work Phone: 03-22-2023 Note Formatting of this n ote might be different from the original. Reviewed medical history and current medications. Patient is having a local procedure and will arrive with his significant other. [facility] Work Phone: 03-21-2023 History of Present illness [...] the post-operative course. He will be in [place] so we will schedule a virtual postop visit in 2 weeks. Sera Euceda MD Orthopaedic Surgeon documented in this encounter [facility] Work Phone: 07-15-2022 Evaluation note Encounter Date [...] the MRI of the lumbar spine and fqmf-za-qaqo with the patient and his which shows [...] Jul, BMI 45.0-49.9, adult (ICD-10 - Z68.42) [employer] Other 04-06-2023 NoteCONSULTATION CONSULTATION DATE: 07/08/2022 HISTORY: [...] our patients to inform us about any pjux-dqs-hummyre medications or herbal remedies/nutritional supplements/alternative remedies. 2. [...] treatment options with their primary care provider.[facility] [id number] Evaluation note * Encounter Date Diagnosis Assessment [...] negative findings were considered in medical decision-making. [employer] Other 2023 NotePAIN MANAGEMENT CONSULTATION CONSULTATION DATE: [...] home exercise program. He is intolerant to Eastman agent. I have recommended patient a lumbosacral [...] status of his right lower extremity strength.[facility] [id number] NoteCONSULTATION CONSULTATION DATE: 05/04/2022 CHIEF COMPLAINT: Low [...] Sitting mitigates the patient's pain. The patient's CUH is 20. The patient takes Motrin 800 [...] to the patient. CC: Kojo Medina M.D.[facility] [id number] History and physical note Author Yves Garcia [facility] March 21, 2022 7:59pm Note Date/Time March 21, 2022 7:59pm [facility] [address] [place] [address] Hospitalist H&P Signed Patient: Tammy Wu MR#: [id number] : 1950 Acct:[id number] Age/Sex: 72 / M Adm Date: 2 Loc: Room: [address] [place] [address] Type: ADM INOo Attending Dr: Yves Garcia [...] patient describes that [facility] [place] recently and felt short of breath so [...] except as mentioned elsewhere in the documentation. [facility] Yes Medical History [...] % (Auto) 26.9 % (.) 03/21/22 11:52 [place] % (Auto) 11.1 % (.) 03/21/22 11:52 Eos % (Auto) 2.7 % (.) 03/21/22 11:52 Baso % (Auto) 0.6 % (.) 03/21/22 11:52 Nucleat RBC Rel Count 0.1 /100 WBC (0-0.5) 03/21/22 11:52 Neut # (Auto) 4.2 x10E3/uL (1.8-7.7) 03/21/22 11:52 Lymph # (Auto) 1.9 x10E3/uL (1.00-4.8) 03/21/22 11:52 [place] # (Auto) 0.8 x10E3/uL (0.0-0.8) 03/21/22 11:52 [...] <Electronically signed by Yves Garcia DO> 03/21/221958 [facility] Work Phone: 1(265) 902-320504-08-2022 Hospital Discharge instructions Patient Education 07/10/2021 11:50:59 [...] urethra. Follow these instructions at home: Take sdbs-pph-hwxlfxr and prescription medicines only as told by [...] 03/21/2006 Document Revised: 02/13/2019 Document Reviewed: 04/25/2017 [facility] Patient Education 2020 Reimage. Follow Up Care 06/12/2021 09:10:16 With:PATRICE SOTELO, Rajeev John, URL Address: [address] [place] [address]- When:07/11/2023 Comments:*PSA is ordered from Dr Medina [facility] consult note Author Colin Lion [facility] March 22, 2022 12:43pm Note Date/Time March 22, 2022 12:43pm [facility] [address] [place] [address] Cardiology Consult Note Signed Patient: Tammy Wu MR#: [id number] : 1950 Acct:[id number] Age/Sex: 72 / M Adm Date: 2 Loc: Room: [address] [place] [address] Type: ADM INOo Attending Dr: Jakub Andrews [...] signed by MD Colin Lion> 03/22/22 1243 [facility] Work Phone: Evaluation + Plan note No data available for this section [facility] Plan note Future Appointments Appointment Date:02/18/2025 11:45:00 AM Scheduled Provider:Rajeev IBRAHIM MD Location:[facility] Appointment Type:URO Office Visit [facility] Evaluation note* Diagnosis Onset Date Resolution Status Atypical chest pain acute [facility] Work Phone: Evaluation note* Diagnosis Onset Date Resolution Status Accelerated hypertension acu te Atypical chest pain acute Diabetes acute [facility] Work Phone: Evaluation note* Diagnosis Carpal tunnel syndrome of right wrist- Primary documented in this encounter [facility] Work Phone: evaluation note* Diagnosis Carpal tunnel syndrome, right upper limb- Primary Carpal tunnel syndrome, right upper limb documented in this encounter [facility] Work Phone: evaluation note* Diagnosis Benign essential hypertension- Primary Essential hypertension, benign Mixed hyperlipidemia BMI 45.0-49.9, adult (Multi) Sinus bradycardia Other specified cardiac dysrhythmias Former smoker Personal history of tobacco use, presenting hazards to health White coat syndrome with hypertension documented in this encounter [facility] Work Phone: Evaluation note* Diagnosis Shortness of [...] complication, with long-term current use of insulin ([facility]) Type 2 diabetes mellitus with hyperglycemia ([facility]) 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[facility]) [facility] encounter [facility] Diagnosis Type 2 diabetes mellitus with other specified complication, with long-term current use of insulin ([facility])- Primary Mixed hyperlipidemia ([facility]) Mixed hyperlipidemia Upper respiratory tract infection, unspecified type Type 2 diabetes mellitus with hyperglycemia ([facility]) 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[facility]) documented in this encounter [facility]* Diagnosis Mixed hyperlipidemia- Primary Benign essential hypertension Essential hypertension, benign Bradycardia Other specified cardiac dysrhythmias documented in this encounter [facility] Work Phone: Evaluation note* Diagnosis Benign essential hypertension ([facility])- Primary Essential hypertension, benign Type 2 diabetes mellitus with other specified complication, with long-term current use of insulin ([facility]) documented in this encounter [facility]* Diagnosis Solares angioma- Primary Actinic [...] Morbid (severe) obesity due to excess calories ([facility]) Body mass index (BMI) 45.0-49.9, adult ([facility]) documented [facility] encounter [facility]* Diagnosis Routine general medical examination at health care facility- Primary Routine general medical examination at a health care facility ACP (advance care planning) Other specified counseling Type 2 diabetes mellitus with other specified complication, with long-term current use of insulin ([facility]) Morbidly obese ([facility]) Morbid obesity Mixed hyperlipidemia Mixed hyperlipidemia [...] hazards to health documented in this encounter [facility] Work Phone: Evaluation note* Diagnosis Benign essential hypertension- Primary Essential hypertension, benign Type 2 diabetes mellitus with other specified complication, with long-term current use of insulin (HCC) Morbidly obese (CMS-HCC) Morbid obesity BMI 40.0-44.9, adult (CMS-HCC) documented in this encounter [facility] and physical note Author Yves Garcia [facility] March 21, 2022 7:59pm Note Date/Time March 21, 2022 7:59pm [facility] [address] [place] [address] Hospitalist H&P Signed Patient: Tammy Wu MR#: [id number] : 1950 Acct:[id number] Age/Sex: 72 / M Adm Date: 2 Loc: Room: [address] [place] [address] Type: ADM INOo Attending Dr: Yves Garcia [...] patient describes that he [facility] [place] recently and felt short of breath so [...] except as mentioned elsewhere in the documentation. [facility] Vaccinated for COVID-19?: Yes Medical History (Updated [...] % (Auto) 26.9 % (.) 03/21/22 11:52 [place] % (Auto) 11.1 % (.) 03/21/22 11:52 Eos % (Auto) 2.7 % (.) 03/21/22 11:52 Baso % (Auto) 0.6 % (.) 03/21/22 11:52 Nucleat RBC Rel Count 0.1 /100 WBC (0-0.5) 03/21/22 11:52 Neut # (Auto) 4.2 x10E3/uL (1.8-7.7) 03/21/22 11:52 Lymph # (Auto) 1.9 x10E3/uL (1.00-4.8) 03/21/22 11:52 [place] # (Auto) 0.8 x10E3/uL (0.0-0.8) 03/21/22 11:52 [...] <Electronically signed by Yves Garcia DO> 03/21/221958 [facility] Work Phone: History general Narrative - Reported* Type Description Date Medical History hypertensive heart disease Medical History diabetes mallitus Medical History hypercholesterolemia Medical History Arthritis Medical History obesity Surgical History right hip replacement Surgical History back surgery- lamiectomy 1992 Surgical History nerve ablation 2019 Surgical History tissue scan 2015 Hospitalization History See Above [employer] Other History of Present illness Narrative* Patient [...] merits of diet exercise and weight loss. [facility] 250 DO Work Phone: History of Present illness NarrativePatient returns in follow-up of problems as noted. He is done well. Management of cardiac risk factors including his hypertension diabetes and hyperlipidemia are discussed and reviewed and control appears adequate and appropriate. I did advocate the merits of diet and weight loss and its favorable impact on diabetes and hypertension. [facility] 600 DO Work Phone: Hospital Discharge instructions Additional Instructions Monitor glucose levels as before.[facility] Work Phone: Hospital Discharge instructions No data available for this section [facility] progress note Author [facility] March 22, 2022 4:06pm Note Date/Time March 22, 2022 12:52pm [facility] [address] [place] [address] Hospitalist Progress Note Signed Patient: Tammy Wu MR#: [id number] : 1950 Acct:[id number] Age/Sex: 72 / M Adm Date: 2 Loc: Room: [address] [place] [address] Type: DIS INOo Attending Dr: Jakub Andrews [...] <Electronically signed by Jakub Andrews MD> 03/22/22 3116 [facility] Work Phone: Progress note No data available for this section [facility] Summary Purpose Family History No Family History [...] ECG 12 Lead Colin Lion MD [address] [facility] 2, [address] [place] [address] Referral ID Status Reason Start Date Expiration Date V isits Requested Visits Authorized [id number] Authorized 10/10/2023 10/09/2024 1 1 Specialty Diagnoses / Procedures Referred By Contac t Referred To Contact Cardiology Diagnoses Mixed hyperlipidemia Procedures Follow Up In Cardiology Colin Lion MD [address], [address] [address] Ro Pendleton MD [address] [facility] 2, [address] [place] [address] Referral ID Status Reason Start Date Expiration Date V isits Requested Visits Authorized [id number] Authorized 10/10/2023 10/09/2024 1 1 Specialty Diagnoses / Procedures Referred By Contac t Referred To Contact Cardiology Diagnoses Mixed hyperlipidemia Procedures Follow Up In Cardiology Colin Lion MD [address] [facility] 2, [address] [address] Bertha Whittington, TRIPLE AIR VALVE TESTER-THREAD TOOL GRINDER SET UP OPERATOR [address] [facility] 2, [address] [address] Referral ID Status Reason Start Date Expiration Date V isits Requested Visits Authorized [id number] Authorized 10/10/2023 10/09/2024 1 1 Specialty Diagnoses / Procedures Referred By Contac t Referred To Contact Diagnoses Sinus bradycardia Procedures ECG 12 Lead Ro Pendleton MD [address], [address] [address] Referral ID Status Reason Start Date Expiration Date V isits Requested Visits Authorized [id number] Authorized 01/13/2024 01/12/2025 1 1 Specialty Diagnoses / Procedures Referred By Contac t Referred To Contact Cardiology Diagnoses Benign essential hypertension Procedures Follow Up In Cardiology Ro Pendleton MD [address] [facility] 2, [address] [address] Ro Pendleton MD [address] [facility] 2, [address] [place] [address] Referral ID Status Reason Start Date Expiration Date V isits Requested Visits Authorized [id number] Authorized 01/13/2024 01/12/2025 1 1 Reason evaluate and treat a neena therapy Diagnosis 1 Lumbar radiculopathy (M54.16) Referral Organization [facility] Referring Provider First Name Karime Referring Provider Last Name Rashmi Referring Provider Specialty Nurse Pract itioner Referred Organization [facility] Referred Address [address] [place], [place],[address] Referred Provider Specialty Physical The rapist Referral [...] section and content) DATE CREATED AUTHOR 08/31/2019 [facility] DATE CREATED AUTHOR AUTHOR'S ORGANIZ ATION 06/13/2021 [facility] dical Specialist DATE CREATED AUTHOR AUTHOR'S ORGANIZ ATION 05/08/2022 [facility] DATE CREATED AUTHOR AUTHOR'S ORGANIZ ATION 08/16/2022 [facility] DATE CREATED AUTHOR AUTHOR'S ORGANIZ ATION 09/14/2022 [facility] DATE CREATED AUTHOR AUTHOR'S ORGANIZ ATION 09/14/2022 [employer] DATE CREATED AUTHOR AUTHOR'S ORGANIZ ATION 03/26/2023 [facility] DATE CREATED AUTHOR AUTHOR'S ORGANIZ ATION 10/16/2024 [facility] DATE CREATED AUTHOR AUTHOR'S ORGANIZ ATION 11/15/2024 [facility] DATE CREATED AUTHOR AUTHOR'S ORGANIZ ATION 11/20/2024 [facility] dical Specialists EPIC DATE CREATED AUTHOR AUTHOR'S [...] Active Colin Lion MD Other Provider Active Rn Documentation Relationship Specialty Start Date End Date Kojo Medina MD [address] [place] [address] PCP - General 09/08/22 Rn Documentation Relationship Specialty Start Date End Date Kojo Medina MD [address] [place] [address] PCP - General 09/08/22 Rn Documentation Relationship Specialty Start Date End Date Kojo Medina MD [address] [place] [address] PCP - General 09/08/22 Rn Documentation Relationship Specialty Start Date End Date Kojo Medina MD [address] [place] [address] PCP - [employer] 04/04/20 Kojo Medina MD [address] [place] [address] PCP - General Internal Medicine 08/18/22 Rn Documentation Relationship Specialty Start Date End Date Kojo Medina MD [address] [place] [address] PCP - [employer] 04/04/20 Kojo Medina MD [address] [place] [address] PCP - General Internal Medicine 08/18/22 Rn Documentation Relationship Specialty Start Date End Date Kojo Medina MD [address] [place] [address] PCP - [employer] 04/04/20 Kojo Medina MD [address] [place] [address] PCP - General Internal Medicine 08/18/22 Rn Documentation Relationship Specialty Start Date End Date Kojo Medina MD [address] [place] [address] PCP - [employer] 04/04/20 Kojo Medina MD [address] [place] [address] PCP - General Internal Medicine 08/18/22 Rn Documentation Relationship Specialty Start Date End Date Kojo Medina MD [address] [place] [address] PCP - [employer] 04/04/20 Kojo Medina MD [address] [place] [address] PCP - General Internal Medicine 08/18/22 Rn Documentation Relationship Specialty Start Date End Date Kojo Medina MD [address] [place] [address] PCP - [employer] 04/04/20 Kojo Medina MD [address] [place] [address] PCP - General Internal Medicine 08/18/22 Rn Documentation Relationship Specialty Start Date End Date Kojo Medina MD [address] [place] [address] PCP - [employer] 04/04/20 Kojo Medina MD [address] [place] [address] PCP - General Internal Medicine 08/18/22 Rn Documentation Relationship Specialty Start Date End Date Kojo Medina MD [address] [place] [address] PCP - [employer] 04/04/20 Kojo Medina MD [address] [place] [address] PCP - General Internal Medicine 08/18/22 Rn Documentation Relationship Specialty Start Date End Date Kojo Medina MD [address] [place] [address] PCP - [employer] 04/04/20 Kojo Medina MD [address] [place] [address] PCP - General Internal Medicine 08/18/22 Rn Documentation Relationship Specialty Start Date End Date Kojo Medina MD [address] [place] [address] PCP - General 09/08/22 Rn Documentation Relationship Specialty Start Date End Date Kojo Medina MD [address] [place] [address] PCP - [employer] 04/04/20 Kojo Medina MD [address] [place] [address] PCP - General Internal Medicine 08/18/22 Rn Documentation Relationship Specialty Start Date End Date Kojo Medina MD [address] [place] [address] PCP - [employer] 04/04/20 Kojo Medina MD [address] [place] [address] PCP - General Internal Medicine 08/18/22 Rn Documentation Relationship Specialty Start Date End Date Kojo Medina MD [address] [place] [address] PCP - [employer] 04/04/20 Kojo Medina MD [address] [place] [address] PCP - General Internal Medicine 08/18/22 Rn Documentation Relationship Specialty Start Date End Date Kojo Medina MD [address] [place] [address] PCP - [employer] 04/04/20 Kojo Medina MD [address] [place] [address] PCP - General Internal Medicine 08/18/22 Rn Documentation Relationship Specialty Start Date End Date Kojo Medina MD [address] [place] [address] PCP - General 09/08/22 Rn Documentation Relationship Specialty Start Date End Date Kojo Medina MD [address] [place] [address] PCP - [employer] 04/04/20 Kojo Medina MD [address] [place] [address] PCP - General Internal Medicine 08/18/22 Rn Documentation Relationship Specialty Start Date End Date Kojo Medina MD [address] [place] [address] PCP - [employer] 04/04/20 Kojo Medina MD [address] [place] [address] PCP - General Internal Medicine 08/18/22 Goals (unrecognized section and content) Goals may be documented in a n alternate section REASON FOR VISIT (unrecogniz ed section and content) Reason Comments Pain New Patient VisitFin lety numbness Specialty Diagnoses / Procedures Referred By Elise olsen Referred To Contact Diagnoses Carpal tunnel syndrome, right upper limb Carpal tunnel syndrome, right upper limb [G56.01] Procedures [place] NEUROPLASTY &/TRANSPOS MEDIAN NRV CARPAL TUNNE Decompression Median Nerve with Carpal Tunnel Release; weighs 3++ and is a diabetic Sera Oswald MD [address] [facility], [address] [place] [address] [address] [address] [address] Referral ID Status Reason Start Date Expiration Date Visits Re quested Visits Authorized [id number] 1 1 Reason Comments Follow-up 6 month Specialty Diagnoses / Procedures Referred By Elise olsen Referred To Contact Cardiology Diagnoses Mixed hyperlipidemia Procedures Follow Up In Cardiology Colin Lion MD Retired From Practice Ro Pendleton MD [address] [place] [address] Referral ID Status Reason Start Date Expiration Date V isits Requested Visits Authorized [id number] Authorized 10/10/2023 10/09/2024 1 1 Reason Comments Shortness of Breath Reason Comments Results Reason Comments Medicare Annual Wellness Visit Subsequen t Med Refill Maxzide--[facility] fin Reason Comments Diabetes Reason Comments Annual Exam Specialty Diagnoses / Procedures Referred By Contac t Referred To Contact Diagnoses Bradycardia Procedures ECG 12 Lead Colin Lion MD [address] [place] [address] Referral ID Status Reason Start Date Expiration Date V isits Requested Visits Authorized [id number] Authorized 10/10/2023 10/09/2024 1 1 Reason Comments [...] Follow Up In Cardiology Ro Pendleton MD [address] [place] [address] Phone: tel: fax: Ro Pendleton MD [address] [place] [address] Phone: tel: fax: Referral ID Status Reason Start Date Expiration Date V isits Requested Visits Authorized [id number] Authorized 01/13/2024 01/12/2025 1 1 PRN Active [...] BE BASED ON THE PRIMARY CLINICAL RECORDS. [employer] provides no warranty or guarantee of the accuracy or completeness of information in this document.
--- NOTE | 2024-12-07 11:30 | XR_ITS ---
The [place] [id number] Patient Name: TAMMY HEADLEY MRN: [id number] date: 1950 Sex: M Assigned Patient Location: [facility] Current Patient Location: [facility] Accession/Order Number: [id number] Exam Date: 12/07/2024 11:00 Report Date: 12/07/2024 12:05 At the request of: ROYCE MYERS NP Procedure: XR lumbar spine 6V w bending CLINICAL DATA: Chronic back pain with radiation down the radiopaque . LUMBAR SPINE WITH FLEXION-EXTENSION VIEWS -7 views COMPARISON: 06/15/2022 AP, lateral (neutral, flexion and extension), both oblique and lateral coned-down views lumbosacral junction views were obtained. There is osteopenia. Dextroscoliotic curvature is again noted. No developing compression fractures are seen. There is no significant displacement or instability. Multilevel disc space narrowing is present. There is some endplate sclerosis, greatest at L2-3. There is also diffuse endplate spurring and lower lumbar facet hypertrophy. There is no obvious pars defects. Atherosclerotic plaque is seen at the aorta and iliac arteries. XR/XR lumbar spine 6V w bending IMPRESSION: SCOLIOSIS AND MULTILEVEL DEGENERATIVE CHANGES, SIMILAR TO THE PRIOR. SI JOINTS - 3 views COMPARISON: 06/15/2022 AP and both oblique views were obtained. The SI joints are maintained. There is no ankylosis. There is minimal sclerosis. No acute fractures are identified. A right hip prosthesis is incidentally noted. No soft tissue abnormalities are seen. IMPRESSION: MINIMAL DEGENERATIVE CHANGE. NO ACUTE BONY FINDINGS. Impression dictated by: Leena Melendez M.D. 12/07/2024 12:05 PM [facility] Electron[facility] authenticated by: [id number] Y Date: 12/07/2024 12:05
--- NOTE | 2024-12-07 11:30 | XR_ITS ---
The [address] [address] Patient Name: TAMMY HEADLEY MRN: [id number] date: 1950 Sex: M Assigned Patient Location: [facility] Current Patient Location: [facility] Accession/Order Number: [id number] Exam Date: 12/07/2024 11:00 Report Date: 12/07/2024 12:05 At the request of: ROYCE MYERS NP Procedure: XR lumbar spine 6V w bending CLINICAL DATA: Chronic back pain with radiation down the radiopaque . LUMBAR SPINE WITH FLEXION-EXTENSION VIEWS -7 views COMPARISON: 06/15/2022 AP, lateral (neutral, flexion and extension), both oblique and lateral coned-down views lumbosacral junction views were obtained. There is osteopenia. Dextroscoliotic curvature is again noted. No developing compression fractures are seen. There is no significant displacement or instability. Multilevel disc space narrowing is present. There is some endplate sclerosis, greatest at L2-3. There is also diffuse endplate spurring and lower lumbar facet hypertrophy. There is no obvious pars defects. Atherosclerotic plaque is seen at the aorta and iliac arteries. XR/XR sacroiliac joint NAMRATA IMPRESSION: SCOLIOSIS AND MULTILEVEL DEGENERATIVE CHANGES, SIMILAR TO THE PRIOR. SI JOINTS - 3 views COMPARISON: 06/15/2022 AP and both oblique views were obtained. The SI joints are maintained. There is no ankylosis. There is minimal sclerosis. No acute fractures are identified. A right hip prosthesis is incidentally noted. No soft tissue abnormalities are seen. IMPRESSION: MINIMAL DEGENERATIVE CHANGE. NO ACUTE BONY FINDINGS. Impression dictated by: Leena Melendez M.D. 12/07/2024 12:05 PM Dictation Location: [place] [address] Electronically authenticated by: [id number] Y Date: 12/07/2024 12:05
== END 2024-12-07 10:44 | disposition home or self-care (01) ==
LOC: RAD 10:44
PROVIDERS: PCP Internal Medicine; Visit Provider Nurse Practitioner
DX: M47.816 Spondylosis without myelopathy or radiculopathy, lumbar region (principal); M51.369 Other intervertebral disc degeneration, lumbar region without mention of lumbar back pain or lower extremity pain; M41.86 Other forms of scoliosis, lumbar region
CPT/HCPCS: 72114; 72202

== ENCOUNTER 2024-12-26 11:02 | Outpatient (OUT) | payer MEDICARE, SELFPAY ==
--- OUTSIDE RECORDS SUMMARY | 2024-12-26 11:15 | XMS_ITS | CCD ---
Author Organization [facility] Inform ion Partnership [facility] Care Team Providers Care Kelp Cutter Name Role Phone KOJO MEDINA Primary Care Physician Update Needed Unavailable Unavailable Unavailable Unavailable EUGENIA Medina Primary Care Provider LETICIA Husain Emergency Provider DO Yves Garcia Admit Provider [phone] DO Yves Garcia Attending Provider [phone] MD Jakub Andrews Attending Provider [phone] MD Colin Lion Other Provider [phone] Jakub Andrews Attending Unavailable Colin Lion Consulting [...] Care Unavailable ADAM, DR BAXTER Attending Unavailable MEDINA, DR BAXTER [...] Attending Unavailable Rajeev IBRAHIM Attending Unavailable PANDA VASQUEZ Attending Unavailable KOJO MEDINA Attending Unavailable KOJO MEDINA Attending Unavailable LEENA ARMENTA Attending Unavailable LEENA ARMENTA Attending Unavailable LYUDMILA DUNCAN Attending Unavailable LYUDMILA DUNCAN Attending Unavailable KOJO MEDINA Attending Unavailable KOJO MEDINA Attending Unavailable Allergies Allergy Classification Reported Allergen(s) Allergy Type Date of Onset Reaction(s) Facility (20 sources) metFORMIN; Translations: [METFORMIN HCL] Drug Allergy 3 Diarrhea [facility] Work Phone: (6 sources) Animal Dander; Translations: [ANIMAL DANDER] Propensity to adverse reactions 3 Shortness of breath, Itching, Rash [facility] (20 sources) Tetanus Toxoid, Adsorbed Propensity to adverse reactions [address] [facility] (2 sources) atorvastatin; Translations: [ATORVASTATIN] Drug Allergy 5 Myalgia [facility] (1 source) Horses; Translations: [Horses] Propensity to adverse reactions (disorder) [facility] Repository (2 sources) atorvastatin Drug Allergy [address] [facility] Work Phone: Medications Current Medications Medication Drug Class(es) Dates [...] CHECK GLUCOSE ONCE DAILY 07/01/2022 Active carvedilol 6.25 mg oral tablet (20 sources) alpha-Adrenergic Ofelia, beta-Adrenergic Ofelia Start: 12-20-2024 take 1 tablet by mouth in the morning carvedilol (Coreg) 6.25 MG tablet Indications: Benign essential hypertension Take 1 tablet (6.25 mg) by mouth in the morning and 1 tablet (6.25 mg) in the evening. Take with meals. 180 tablet 3 12/20/2024 Active Start: 12-20-2024 take 1 tablet by yenni th in the morning carvedilol (Coreg) 6.25 MG tablet Indications: Benign essential hypertension Take 1 tablet (6.25 mg) by mouth in the morning and 1 tablet (6.25 mg) in the evening. Take with meals. 180 tablet 3 12/20/2024 Active Start: 10-12-2024 End: 10-12-2025 take 1 tablet by mouth in the morning carvedilol (Coreg) 3.125 MG tablet Take 3.125 mg by mouth in the morning and 3.125 mg in the evening. Take with meals. 10/12/2024 11/19/2024 Discontinued Start: 01-13-2024 End: 01-12-2025 take 1 tablet by mouth in the morning carvedilol (Coreg) 6.25 MG tablet Take 6.25 mg by mouth in the morning and 6.25 mg in the evening. Take with meals. 11/23/2024 12/20/2024 Discontinued (Reorder) Start: 10-10-2023 End: 10-09-2024 take 2 tablets [...] by mouth once daily. Active Continuous Glucose Head Screen Worker (FreeStyle Radha 3 Maryneal) device (13 sources) Start: 08-28-2024 Continuous Glucose Head Screen Worker (FreeStyle Radha 3 Maryneal) device Indications: Type 2 diabetes mellitus with other specified complication, with long-term current use of insulin (HCC) USE DIRECTED 1 each 08/28/2024 Active Start: 08-02-2024 Continuous Glu cose Head Screen Worker (FreeStyle Radha 3 Maryneal) device Indications: Type 2 diabetes mellitus with other specified complication, with long-term current use of insulin 1 Device continuously 1 each 08/02/2024 Active Continuous Glucose Sensor (FreeStyle Radha 3 Sensor) [facility] (13 sources) Start: 08-02-2024 apply 1 dose transdermal route once Continuous Glucose Sensor (FreeStyle Radha 3 Sensor) [facility] Indications: Type 2 diabetes mellitus with other specified complication, with long-term current use of insulin (HCC) Apply 1 patch topically every 14 (fourteen) days 2 each 08/02/2024 Active Start: 08-02-2024 apply 1 dose transde rmal route once Continuous Glucose Sensor (FreeStyle Radha 3 Sensor) [facility] Indications: Type 2 diabetes mellitus with other [...] complication, with long-term current use of insulin ([facility]) Take 1 tablet (10 mg) by mouth every 8 (eight) hours if needed for muscle spasms 60 tablet 2 09/17/2024 Active dapagliflozin 10 mg oral tablet (7 sources) Sodium-Glucose Cotransporter 2 Inhibitor Start: 11-19-2024 take 1 tablet by mouth once daily Farxiga 10 MG Indications: Type 2 diabetes mellitus with other specified complication, with long-term current use of insulin ([facility]) Take 1 tablet (10 mg) by mouth [...] complication, with long-term current use of insulin ([facility]) Inject 2 mg under the skin every [...] mirabegron 50 mg extended release oral tablet (9 sources) beta3-Adrenergic Agonist Start: 11-14-2024 take 1 [...] Active pravastatin sodium 20 mg oral tablet (9 sources) HMG-CoA Reductase Inhibitor Start: 10-12-2024 End: [...] mellitus with other specified complication, unspecified whether group home insulin use (HCC) Inject 0.5 mg under the skin 1 (one) time per week 1.5 mL 04/10/2024 09/17/2024 Discontinued (Duplicate order) inject 0.5 mg by sub cutaneous injection every week semaglutide (Ozempic) 2 MG/1.5ML solutio n pen-injector Inject 0.5 mg under the skin 1 (one) time per week Active semaglutide (Ozempic, 1 MG/DOSE,) 4 MG/3ML solution pen-injector (7 sources) Start: 11-19-2024 inject 1 mg by [...] complication, with long-term current use of insulin ([facility]) Inject 0.75 mg under the skin 1 (one) time per week 2 mL 02/17/2024 03/22/2024 Discontinued triamcinolone acetonide 1 mg/ml [...] with diabetic mononeuropathy] Onset: 09-01-2022 09-01-2022 Chronic Disorders of lipid metabolism (20 sources) Hyperlipidemia; Translations: [Other and unspecified hyperlipidemia] Onset: 09-01-2022 01-13-2024 Chronic Diverticulosis and diverticulitis (20 sources) Diverticulosis of colon; Translations: [Diverticulosis of large intestine without perforation or abscess without bleeding] Onset: 06-25-2008 09-01-2022 Chronic Essential hypertension (20 sources) Hypertensive disorder; Translations: [Benign essential hypertension] Onset: 06-25-2008 Resolved: 11-19-2024 06-13-2019 Chronic Genitourinary symptoms and ill-defined conditions (20 sources) Microscopic hematuria; Translations: [Other microscopic hematuria] Onset: 02-01-2024 06-13-2019 Episodic Hyperplasia of prostate (20 sources) Benign prostatic hypertrophy with outflow obstruction; Translations: [Benign prostatic hyperplasia with lower urinary tract symptoms] Onset: 06-25-2008 Chronic Immunity disorders (4 sources) Secondary immune deficiency disorder; Translations: [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[facility])] 02-17-2024 Chronic Mycoses (2 sources) Tinea cruris; Translations: [Tinea cruris] 08-02-2024 Episodic Osteoarthritis (20 sources) Arthritis; Translations: [Osteoarthritis of left hip joint] Onset: 09-01-2022 06-13-2019 Chronic Other aftercare (1 source) penitentiary (current) use of insulin; Translations: [[facility] CURRENT USE OF INSULIN] Onset: 07-22-2022 Episodic [...] Episodic Other diseases of bladder and urethra (11 sources) Overactive bladder; Translations: [Overactive bladder] Onset: 11-19-2024 08-02-2024 Chronic Other diseases of bladder and urethra (1 source) Detrusor overactivity; Translations: [Overactive bladder] Onset: 11-14-2024 Chronic Other liver diseases (20 sources) Steatosis of liver; Translations: [Fatty (change of) liver, not elsewhere classified] Onset: 09-01-2022 3 Chronic Other lower respiratory disease (2 sources) [...] (1 source) Other specified postprocedural states Episodic Spondylosis; intervertebral disc disorders; other back [...] degree] Onset: 09-01-2022 Resolved: 11-19-2024 09-01-2022 Chronic Diabetes mellitus without complication (20 sources) Diabetes mellitus; Translations: [Diabetes mellitus without mention of complication, type II or unspecified type, not stated as uncontrolled] Onset: 03-21-2022 Resolved: 11-19-2024 06-13-2019 Chronic Mood disorders (20 sources) Mild depression; Translations: [...] Episodic Other nervous system disorders (20 sources) Carpal tunnel syndrome; Translations: [Carpal tunnel syndrome, unspecified upper limb] Onset: 09-01-2022 Resolved: 11-19-2024 09-01-2022 Chronic Other nervous system disorders (20 sources) Ulnar nerve entrapment; Translations: [Lesion of ulnar nerve, unspecified upper limb] Onset: 09-01-2022 Resolved: 11-19-2024 09-01-2022 Chronic Residual codes; unclassified (20 sources) H/O: anticoagulant therapy; Translations: [Personal history of other drug therapy] Onset: 02-01-2024 06-13-2019 Episodic Residual codes; unclassified (20 sources) Insomnia; Translations: [Insomnia, unspecified] Onset: 09-01-2022 09-01-2022 Episodic Residual codes; unclassified (12 sources) Other specified health status; Translations: [Other drug allergy] Onset: 09-17-2024 09-17-2024 Episodic Screening and history of mental health [...] Test Name Value Interpretation Reference Range Facility No Panel Informationon 12-07 Radiology Study observation (narrative) [facility] XR LUMBAR SPINE 6V W BENDING on 12-07-2024 [place] [address] XRay Report Signed Patient: TAMMY WU MR#: [id number] : 1950 Acct:[id number] Age/Sex: 74 / M ADM Date: 12/07/24 Loc: [facility] Attending Dr: Royce Geuvara NP Ordering Physician: Royce Guevara NP Date of Service: 12/07/24 Procedure(s): XR lumbar spine 6V w bending Accession Number(s): [id number] cc: KOJO MEDINA ; Royce Guevara NP [place] [address] Patient Name: TAMMY WU MRN: [id number] date: 1950 Sex: M Assigned Patient Location: [facility] Current Patient Location: [facility] Accession/Order Number: [id number] Exam Date: 12/07/2024 11:00 Report Date: 12/07/2024 12:05 At the request of: ROYCE GUEVARA NP Procedure: XR lumbar spine 6V w bending CLINICAL DATA: Chronic back pain with radiation down the radiopaque . LUMBAR SPINE WITH FLEXION-EXTENSION VIEWS -7 views COMPARISON: 06/15/2022 AP, lateral (neutral, flexion and extension), both oblique and lateral coned-down views lumbosacral junction views were obtained. There is osteopenia. Dextroscoliotic curvature is again noted. No developing compression fractures are seen. There is no significant displacement or instability. Multilevel disc space narrowing is present. There is some endplate sclerosis, greatest at L2-3. There is also diffuse endplate spurring and lower lumbar facet hypertrophy. There is no obvious pars defects. Atherosclerotic plaque is seen at the aorta and iliac arteries. XR/XR lumbar spine 6V w bending IMPRESSION: SCOLIOSIS AND MULTILEVEL DEGENERATIVE CHANGES, SIMILAR TO THE PRIOR. SI JOINTS - 3 views COMPARISON: 06/15/2022 AP and both oblique views were obtained. The SI joints are maintained. There is no ankylosis. There is minimal sclerosis. No acute fractures are identified. A right hip prosthesis is incidentally noted. No soft tissue abnormalities are seen. IMPRESSION: MINIMAL DEGENERATIVE CHANGE. NO ACUTE BONY FINDINGS. Impression dictated by: Leena Melendez M.D. 12/07/2024 12:05 PM Dictation Location: [employer] Electronically authenticated by: [id number] Y Date: 12/07/2024 12:05 Dictated By: Leena Melendez M.D. Signed By: 12/07/24 1208 DD/ 120 TD/TT: Broom Handle Dipper: [facility] Radiology, Radiologi MD janina - 12/07/2024 [place] [address] XRay Report Signed Patient: TAMMY WU MR#: [id number] : 1950 Acct:[id number] Age/Sex: 74 / M ADM Date: 12/07/24 Loc: [facility] Attending Dr: Royce Guevara NP Ordering Physician: Royce Guevara NP Date of Service: 12/07/24 Procedure(s): XR lumbar spine 6V w bending Accession Number(s): [id number] cc: KOJO MEDINA Anna NP The [place] [address] Patient Name: TAMMY WU MRN: [facility]:[id number] date: 1950 Sex: M Assigned Patient Location: [facility] Current Patient Location: [facility] Accession/Order Number: [id number] Exam Date: 12/07/2024 11:00 Report Date: 12/07/2024 12:05 At the request of: ROYCE GUEVARA NP Procedure: XR lumbar spine 6V w bending CLINICAL DATA: Chronic back pain with radiation down the radiopaque . LUMBAR SPINE WITH FLEXION-EXTENSION VIEWS -7 views COMPARISON: 06/15/2022 AP, lateral (neutral, flexion and extension), both oblique and lateral coned-down views lumbosacral junction views were obtained. There is osteopenia. Dextroscoliotic curvature is again noted. No developing compression fractures are seen. There is no significant displacement or instability. Multilevel disc space narrowing is present. There is some endplate sclerosis, greatest at L2-3. There is also diffuse endplate spurring and lower lumbar facet hypertrophy. There is no obvious pars defects. Atherosclerotic plaque is seen at the aorta and iliac arteries. XR/XR lumbar spine 6V w bending IMPRESSION: SCOLIOSIS AND MULTILEVEL DEGENERATIVE CHANGES, SIMILAR TO THE PRIOR. SI JOINTS - 3 views COMPARISON: 06/15/2022 AP and both oblique views were obtained. The SI joints are maintained. There is no ankylosis. There is minimal sclerosis. No acute fractures are identified. A right hip prosthesis is incidentally noted. No soft tissue abnormalities are seen. IMPRESSION: MINIMAL DEGENERATIVE CHANGE. NO ACUTE BONY FINDINGS. Impression dictated by: Leena Melendez M.D. 12/07/2024 12:05 PM Dictation Location: [employer] Electronically authenticated by: [id number] Y Date: 12/07/2024 12:05 Dictated By: Leena Melendez M.D. Signed By: 12/07/241207 DD/ 04 TD/TT: Broom Handle Dipper[facility] LUMBAR SPINE 6V W BENDING Ordered By: Radiologist Radiology on 12-07-2024 [facility] [employer] Work Phone: XR SACROILIAC JOINTon 2024 [place] [address] XRay Report Signed Patient: TAMMY WU MR#: [id number] : 1950 Acct:[id number] Age/Sex: 74 / M ADM Date: 12/07/24 Loc: [facility] Attending Dr: Royce Guevara NP Ordering Physician: Royce Guevara NP Date of Service: 12/07/24 Procedure(s): XR sacroiliac joint NAMRATA Accession Number(s): [id number] cc: KOJO MEDINA ; Royce Guevara NP The [address] [address] Patient Name: TAMMY WU MRN: [facility]:[id number] date: 1950 Sex: M Assigned Patient Location: [facility] Current Patient Location: [facility] Accession/Order Number: [id number] Exam Date: 12/07/2024 11:00 Report Date: 12/07/2024 12:05 At the request of: ROYCE GUEVARA NP Procedure: XR lumbar spine 6V w bending CLINICAL DATA: Chronic back pain with radiation down the radiopaque . LUMBAR SPINE WITH FLEXION-EXTENSION VIEWS -7 views COMPARISON: 06/15/2022 AP, lateral (neutral, flexion and extension), both oblique and lateral coned-down views lumbosacral junction views were obtained. There is osteopenia. Dextroscoliotic curvature is again noted. No developing compression fractures are seen. There is no significant displacement or instability. Multilevel disc space narrowing is present. There is some endplate sclerosis, greatest at L2-3. There is also diffuse endplate spurring and lower lumbar facet hypertrophy. There is no obvious pars defects. Atherosclerotic plaque is seen at the aorta and iliac arteries. XR/XR sacroiliac joint NAMRATA IMPRESSION: SCOLIOSIS AND MULTILEVEL DEGENERATIVE CHANGES, SIMILAR TO THE PRIOR. SI JOINTS - 3 views COMPARISON: 06/15/2022 AP and both oblique views were obtained. The SI joints are maintained. There is no ankylosis. There is minimal sclerosis. No acute fractures are identified. A right hip prosthesis is incidentally noted. No soft tissue abnormalities are seen. IMPRESSION: MINIMAL DEGENERATIVE CHANGE. NO ACUTE BONY FINDINGS. Impression dictated by: Leena Melendez M.D. 12/07/2024 12:05 PM Dictation Location: [place] [address] Electronically authenticated by: [id number] Y Date: 12/07/2024 12:05 Dictated By: Leena Melendez M.D. Signed By: 12/07/24 1207 DD/ 1205 TD/TT: Broom Handle Dipper: [facility] Radiology, Radiologi MD janina - 12/07/2024 The [place] [id number] XRay Report Signed Patient: TAMMY WU MR#: [id number] : 1950 Acct:[id number] Age/Sex: 74 / M ADM Date: 12/07/24 Loc: [facility] Attending Dr: Royce Guevara NP Ordering Physician: Royce Guevara NP Date of Service: 12/07/24 Procedure(s): XR sacroiliac joint NAMRATA Accession Number(s): [id number] cc: KOJO MEDINA ; Royce Guevara NP [facility] [address] [place], [place] [address] Patient Name: TAMMY WU MRN: [id number] date: 1950 Sex: M Assigned Patient Location: [facility] Current Patient Location: [facility] Accession/Order Number: [id number] Exam Date: 12/07/2024 11:00 Report Date: 12/07/2024 12:05 At the request of: ROYCE GUEVARA NP Procedure: XR lumbar spine 6V w bending CLINICAL DATA: Chronic back pain with radiation down the radiopaque . LUMBAR SPINE WITH FLEXION-EXTENSION VIEWS -7 views COMPARISON: 06/15/2022 AP, lateral (neutral, flexion and extension), both oblique and lateral coned-down views lumbosacral junction views were obtained. There is osteopenia. Dextroscoliotic curvature is again noted. No developing compression fractures are seen. There is no significant displacement or instability. Multilevel disc space narrowing is present. There is some endplate sclerosis, greatest at L2-3. There is also diffuse endplate spurring and lower lumbar facet hypertrophy. There is no obvious pars defects. Atherosclerotic plaque is seen at the aorta and iliac arteries. XR/XR sacroiliac joint NAMRATA IMPRESSION: SCOLIOSIS AND MULTILEVEL DEGENERATIVE CHANGES, SIMILAR TO THE PRIOR. SI JOINTS - 3 views COMPARISON: 06/15/2022 AP and both oblique views were obtained. The SI joints are maintained. There is no ankylosis. There is minimal sclerosis. No acute fractures are identified. A right hip prosthesis is incidentally noted. No soft tissue abnormalities are seen. IMPRESSION: MINIMAL DEGENERATIVE CHANGE. NO ACUTE BONY FINDINGS. Impression dictated by: Leena Melendez M.D. 12/07/2024 12:05 PM Dictation Location: [place] [address] Electronically authenticated by: [id number] Y Date: 12/07/2024 12:05 Dictated By: Leena Melendez M.D. Signed By: 12/07/241206 DD/ 04 TD/TT: Broom Handle Dipper: [facility] XR SACROILIAC JOINTOrdered B y: Radiologist Radiology on 12-07-2024 [facility] Work Phone: ALBUMIN, RANDOM URINE W/CREA TININEon 11-20-2024 ALBUMIN, URINE 11.6 mg/dL Normal See Note: [facility] Comment on above: Result Comment: Refe rence Range: Reference Range Not established Performed By: #### 6 517 #### [facility] [place] [address] [employer]seam Trimming Machine Operator: Luigi Grace MD ALBUMIN/CREATININE RATIO, RANDOM URINE [...] category. Performed By: #### 6 517 #### [facility] [place] [address] [employer] Trimming Machine Operator: Luigi Grace MD Creatinine (U) [Mass/Vol] 60 mg/dL Normal 20-320 [facility] Comment on above: Performed By: #### 6 517 #### [facility] [place] [address] [employer] Trimming Machine Operator: Luigi Grace MD Laboratory - Hematology and Cell countson 11-19-2024 HbA1c (Bld) [Mass fraction] 11 % [facility] No Panel Informationon 11-19 Interpretation and review of laboratory results Abnormal [facility] Ambulatory Visit Summaryon 0 11-14-2024 Ambulatory Visit Summary Ambulatory Visit Summary TAMMY WU :1950 Visit Date:11/14/2024 Ambulatory Visit Instructions Your Diagnosis OAB (overactive bladder) Screening PSA (prostate specific antigen) Your Care Team Attending Physician - Rajeev IBRAHIM MD Primary Care Physician - KOJO MEDINA MD [...] Rajeev IBRAHIM MD Where: [facility] [address] [address]- You Need to Schedule the Following Appointments Follow Up with Rajeev IBRAHIM MD, URL When: Comments: 4 mos (new [facility]) Where: [address] [place] [address] Medications What How Much When Instructions New mirabegron (mirabegron 50 mg oral tablet, extended release) 1 Tablets By Mouth Every day Refills: [address] [facility] Unchanged aspirin (aspirin 81 mg oral tablet) [...] physician if questions or concerns Pharmacy Information [facility] 1622: [address] [place], [place] [id number] [phone] Allergies Horses (Unknown) Problems Ongoing - Any problem that you are currently receiving treatment for. Arthritis BPH with urinary obstruction Diabetes HTN (hypertension) Hx of group home use of blood thinners Microhematuria Morbid obesity [...] signs o (more content not included)... Normal [facility] Urology Office/Clinic Noteon 11-14-2024 Urology Office/Clinic Note [...] Contact Information PATRICE SOTELO, Rajeev John, URL [address] [place] [address] [place] [address] Additional Instructions: 4 mos (new med) Patient Education Overactive Bladder, Adult I, Ai Medina, personally scribed for Dr. Ibrahim on 11/14/2024 09:09:06. . Documentation recorded by the scribe, Ai Medina, accurately reflects the services(s) I performed and decisions made by me. Authenticated by Dr. Ibrahim on 11/14/2024 09:10:21. Problem List/Past Medical History Ongoing Arthritis BPH with urinary obstruction Diabetes HTN (hypertension) Hx of butterm[employer] continuous churn use of blood thinners Microhematuria Morbid obesity [...] pneumococcal 13-edita (more content not included)... Normal [facility] Comment on above: Result Comment: Elec tronically Signed By: Rajeev IBRAHIM MD\.br\Date and Time Signed: 11/14/24 09:10 EDT\.br\Electronically Co-Signed By: Ai Medina\.br\Date and Time Co-Signed: 11/14/24 09:09 EDT ECG 12 Leadon 10-12-2024 Sinus bradycardia wi th heart rate 47 [facility] Work Phone: Laboratory - Hematology and Cell countson 09-17-2024 HbA1c (Bld) [Mass fraction] 10.4 % [facility] No Panel Informationon 09-17 [facility] Laboratory - Hematology and Cell countson 08-02-2024 HbA1c (Bld) [Mass fraction] 11.9 % [facility] No Panel Informationon 08-02 [facility] No Panel InformationOrdered By: Rosy Sheppard on 07-17-2024 [facility] Laboratory - Hematology and Cell countson 03-22-2024 HbA1c (Bld) [Mass fraction] 11.8 % [facility] No Panel Informationon 03-22 [facility] Laboratory - Hematology and Cell countson 02-17-2024 HbA1c (Bld) [Mass fraction] 11.2 % [facility] No Panel Informationon 02-16 [facility] CBC (H/H, RBC, INDICES, WBC, PLT)on 02-02-2024 Erythrocyte distribution width (RBC) [Ratio] 13.9 % Normal 11.0-15.0 [facility] Comment on above: Performed By: #### 3 6127, 7600, 5363, 62929, 1759 #### [facility] of [address], [address] [place] [address] Inseam Trimming Machine Operator: Luigi Grace MD Hematocrit (Bld) [Volume fraction] 51.3 % High 38.5-50.0 [facility] Comment on above: Performed By: #### 3 61, 7600, 5363, 61948, 1759 #### [facility] [address], [address] [place] [address] Inseam Trimming Machine Operator: Luigi Grace MD Hemoglobin (Bld) [Mass/Vol] 16.5 g/dL Normal 13.2-17.1 [facility] Comment on above: Performed By: #### 3 6127, 7600, 5363, 49457, 1759 #### [facility] of [place] [address] Inseam Trimming Machine Operator: Luigi Grace MD MCH (RBC) [Entitic mass] 32.2 pg Normal 27.0-33.0 [facility] Comment on above: Performed By: #### 3 6127, 7600, 5363, 42400, 1759 #### [facility] of [place] [address] [employer] Trimming Machine Operator: Luigi Grace MD MCHC (RBC) [Mass/Vol] 32.2 g/dL Normal 32.0-36.0 [facility] Comment on above: Result Comment: For adults, a slight decrease in the calculated MCHC value (in the range of 30 to 32 g/dL) is most likely not clinically significant; however, it should be interpreted with caution in correlation with other red cell parameters and the patient's clinical condition. Performed By: #### 3 6127, 7600, 5363, 18444, 1759 #### [facility] of [place] [address] [employer] Trimming Machine Operator: Luigi Grace MD MCV (RBC) [Entitic vol] 100.0 fL Normal 80.0-100.0 [facility] Comment on above: Performed By: #### 3 6127, 7600, 5363, 21957, 1759 #### [facility] of [place] [address] [employer] Trimming Machine Operator: Luigi Grace MD Platelet mean volume (Bld) [Entitic vol] 9.2 fL Normal 7.5-12.5 [facility] Comment on above: Performed By: #### 3 6127, 7600, 5363, 78320, 1759 #### [facility] of [place] [address] [employer] Trimming Machine Operator: Luigi Grace MD Platelets (Bld) [#/Vol] 306 10*3/uL Normal 140-400 [facility] Comment on above: Performed By: #### 3 6127, 7600, 5363, 09291, 1759 #### [facility] of [place] [address] [employer] Trimming Machine Operator: Luigi Grace MD RBC (Bld) [#/Vol] 5.13 10*6/uL Normal 4.20-5.80 [facility] Comment on above: Performed By: #### 3 6127, 7600, 5363, 80523, 1759 #### [facility] of [place] [address] [employer] Trimming Machine Operator: Luigi Grace MD WBC (Bld) [#/Vol] 10.1 10*3/uL Normal 3.8-10.8 [facility] Comment on above: Performed By: #### 3 6127, 7600, 5363, 96366, 1759 #### [facility] of [address] [address] [employer] Trimming Machine Operator: Luigi Grace MD [facility] 02-02-2024 Albumin [Mass/Vol] 4.5 g/dL Normal 3.6-5.1 [facility] Comment on above: Performed By: #### 3 6127, 7600, 5363, 27353, 1759 #### [facility] of [place] [address] [employer] Trimming Machine Operator: Luigi Grace MD Albumin/Globulin [Mass ratio] 1.2 {ratio} Normal 1.0-2.5 [facility] Comment on above: Performed By: #### 3 6127, 7600, 5363, 59568, 1759 #### [facility] of [place] [address] [employer] Trimming Machine Operator: Luigi Grace MD ALP [Catalytic activity/Vol] 136 U/L Normal 35-144 [facility] Comment on above: Performed By: #### 3 6127, 7600, 5363, 30515, 1759 #### [facility] of [place] [address] [employer] Trimming Machine Operator: Luigi Grace MD ALT [Catalytic activity/Vol] 97 U/L High 9-46 [facility] Comment on above: Performed By: #### 3 6127, 7600, 5363, 06675, 1759 #### [facility] of [place] [address] [employer] Trimming Machine Operator: Luigi Grace MD AST [Catalytic activity/Vol] 55 U/L High 10-35 [facility] Comment on above: Performed By: #### 3 6127, 7600, 5363, 29372, 1759 #### [facility] of [place] [address] [employer] Trimming Machine Operator: Luigi Grace MD Bilirubin [Mass/Vol] 0.8 mg/dL Normal 0.2-1.2 [facility] Comment on above: Performed By: #### 3 6127, 7600, 5363, 89083, 1759 #### [facility] of [place] [address] [employer] Trimming Machine Operator: Luigi Grace MD Calcium [Mass/Vol] 11.2 mg/dL High 8.6-10.3 [facility] Comment on above: Performed By: #### 3 6127, 7600, 5363, 29158, 1759 #### [facility] of [place] [address] [employer] Trimming Machine Operator: Luigi Grace MD Chloride [Moles/Vol] 97 mmol/L Low 98-110 [facility] Comment on above: Performed By: #### 3 6127, 7600, 5363, 25646, 1759 #### [facility] of [place] [address] [employer] Trimming Machine Operator: Luigi Grace MD CO2 [Moles/Vol] 27 mmol/L Normal 20-32 [facility] Comment on above: Performed By: #### 3 6127, 7600, 5363, 91503, 1759 #### [facility] of [place] [address] [employer] Trimming Machine Operator: Luigi Grace MD Creatinine [Mass/Vol] 1.28 mg/dL Normal 0.70-1.[address] [facility] Comment on above: Performed By: #### 3 6127, 7600, 5363, 15498, 1759 #### [facility] of [place] [address] [employer] Trimming Machine Operator: Luigi Grace MD GFR/1.73 sq M.predicted among non-blacks MDRD (S/P/Bld) [Vol rate/Area] 59 mL/min/{1.73_m2} Low > OR = 60 [facility] Comment on above: Performed By: #### 3 6127, 7600, 5363, 91524, 1759 #### [facility] of [place] [address] [employer] Trimming Machine Operator: Luigi Grace MD Globulin (S) [Mass/Vol] 3.7 g/dL Normal 1.9-3.7 [facility] Comment on above: Performed By: #### 3 6127, 7600, 5363, 98408, 1759 #### [facility] [place] [address] [employer] Trimming Machine Operator: Luigi Grace MD Glucose [Mass/Vol] 268 mg/dL High 65-99 [facility] Comment on above: Result Comment: Fasting reference interval For someone without known diabetes, a glucose value >125 mg/dL indicates that they may have diabetes and this should be confirmed with a follow-up test. Performed By: #### 3 6127, 7600, 5363, 15866, 1759 #### [facility] [place] [address] [employer] Trimming Machine Operator: Luigi Grace MD Potassium [Moles/Vol] 5.4 mmol/L High 3.5-5.3 [facility] Comment on above: Performed By: #### 3 6127, 7600, 5363, 86711, 1759 #### [facility] [place] [address] [employer] Trimming Machine Operator: Luigi Grace MD Protein [Mass/Vol] 8.2 g/dL High 6.1-8.1 [facility] Comment on above: Performed By: #### 3 6127, 7600, 5363, 66145, 1759 #### [facility] [place] [address] [employer] Trimming Machine Operator: Luigi Grace MD Sodium [Moles/Vol] 135 mmol/L Normal 135-146 [facility] Comment on above: Performed By: #### 3 6127, 7600, 5363, 64286, 1759 #### [facility] [place] [address] [employer] Trimming Machine Operator: Luigi Grace MD Urea nitrogen [Mass/Vol] 42 mg/dL High 7-25 [facility] Comment on above: Performed By: #### 3 6127, 7600, 5363, 21801, 1759 #### [facility] [address] [place] [address] [employer] Trimming Machine Operator: Luigi Grace MD Urea nitrogen/Creatinine [Mass ratio] 33 mg/mg High 09-23 [facility] Comment on above: Performed By: #### 3 6127, 7600, 5363, 75606, 1759 #### [facility] [address], [address] [place] [address] [employer] Trimming Machine Operator: Luigi Grace MD LIPID PANEL, [facility] 10-3 Cholesterol [Mass/Vol] 171 mg/dL Normal <200 [facility] Comment on above: Performed By: #### 3 6127, 7600, 5363, 60958, 1759 #### [facility] [address], [address] [place] [address] [employer] Trimming Machine Operator: Luigi Grace MD Cholesterol in HDL [Mass/Vol] 39 mg/dL Low > OR = 40 [facility] Comment on above: Performed By: #### 3 6127, 7600, 5363, 68690, 1759 #### [facility] [address], [address] [place] [address] [employer] Trimming Machine Operator: Luigi Grace MD Cholesterol in LDL [Mass/Vol] [...] LDL-C. Javed HYDE et al. VERONICA. 2013;310(19): 1676-3249 (http://education.[employer]/faq/NWH094) Performed By: #### 3 6127, 7600, 5363, 05861, 1759 #### [facility] [address], [address] [place] [address] [employer] Trimming Machine Operator: Luigi Grace MD Cholesterol.total/Chol esterol in HDL [Mass ratio] 4.4 {ratio} Normal <5.0 [facility] Comment on above: Performed By: #### 3 6127, 7600, 5363, 04609, 1759 #### [facility] [address], [address] [place] [address] [employer] Trimming Machine Operator: Luigi Grace MD NON HDL CHOLESTEROL 132 mg/dL (calc) High <130 [facility] Comment on above: Result Comment: For patients with diabetes plus 1 major ASCVD risk factor, treating to a non-HDL-C goal of <100 mg/dL (LDL-C of <70 mg/dL) is considered a therapeutic option. Performed By: #### 3 6127, 7600, 5363, 74278, 1759 #### [facility] [place] [address] [employer] Trimming Machine Operator: Luigi Grace MD Triglyceride [Mass/Vol] 220 mg/dL High <150 [facility] Comment on above: Result Comment: If a non-fasting specimen was collected, consider repeat triglyceride testing on a fasting specimen if clinically indicated. Livier et al. J. of Clin. Lipidol. 2015;9:129-169. Performed By: #### 3 6127, 7600, 5363, 22501, 1759 #### [facility] [place] [address] [employer] Trimming Machine Operator: Luigi Grace MD PSA, TOTALon 02-02-2024 PSA, TOTAL 0.21 ng/mL Normal < OR = 4.00 [facility] Comment on above: Result Comment: The total PSA value from this assay system is standardized against the WHO standard. The test result will be approximately 20% lower when compared to the equimolar-standardized total PSA (Rodrigo Haviland). Comparison of serial PSA results should be interpreted with this fact in mind. This test was performed using the Siemens chemiluminescent method. Values obtained from different assay methods cannot be used interchangeably. PSA levels, regardless of value, should not be interpreted as absolute evidence of the presence or absence of disease. Performed By: #### 3 6127, 7600, 5363, 19731, 1759 #### [facility] [address], [address] [place] [address] [employer] Trimming Machine Operator: Luigi Grace MD TSH W/REFLEX TO FT4on 2023 TSH W/REFLEX TO FT4 2.43 mIU/L Normal 0.40-4.50 [facility] Comment on above: Performed By: #### 3 6328, 5170, 5314, 37912, 1759 #### [facility] [address], [address] [place] [address] [employer] Trimming Machine Operator: Luigi Grace MD ECG 12 Leadon 01-13-2024 Junctional rhythm wi th retrograde P wave [facility] Work Phone: Laboratory - Hematology and Cell countson 12-21-2023 HbA1c (Bld) [Mass fraction] 10.2 % [facility] No Panel Informationon 12-20 [facility] ECG 12 Leadon 10-10-2023 Junctional rhythm ra te 41 bpm Underlying severe sinus bradycardia QTc 341 ms [facility] Work Phone: Office Visit (Cardiology)on [...] Recorded: 08Sep2022 10:06AM Heart Rate40, R Radial [id number], RUE, Sitting Ujeczwjhs06, RUE, Sitting Height5 ft 7 in Pjakxy598 lb BMI Wohmekdsxv55.52 kg/m2 BSA Calculated2.39 Tobacco Useb) No PHQ-2 [...] Sep 08 2022 5:13PM EST (Author) Normal [facility] Tobacco Screening.on 023 Adult depression screening assessment No [facility] 600 DO Work Phone: Fall risk assessment a) [facility] falls within the last year [facility] Work Phone: Tobacco use status [facility] b) No [facility] [employer] 600 DO Work Phone: PROF CHEM 8 (BAS METB)on Anion gap [Moles/Vol] 19.1 mmol/L Normal [facility] Comment on above: Performed By: #### B #### [facility] [address] [place] [address] Dr. Rubens Rodriguez Calcium [Mass/Vol] 9.6 mg/dL Normal 8.5-10.1 [facility] Comment on above: Performed By: #### B MP #### [facility] [address] [place] [address] [address] Rubens Rodriguez Chloride [Moles/Vol] 111 mmol/L Critically high 98-107 [facility] Comment on above: Performed By: #### B MP #### [facility] [address] [place] [address] [address] Rubens Rodriguez CO2 [Moles/Vol] 16.6 mmol/L Critically low 21.0-32.0 [facility] Comment on above: Performed By: #### B MP #### [facility] [address] [place] [address] Dr. Rubens Rodriguez Creatinine [Mass/Vol] 1.32 mg/dL Critically high 0.70-1.30 [facility] Comment on above: Performed By: #### B MP #### [facility] [address] [place] [address] Dr. Rubens Rodriguez EGFR-AF BENINESE >60 Normal >=60 [facility] Comment on above: Performed By: #### B MP #### [facility] [address] [place] [address] Dr. Rubens Rodriguez EGFR-NON AF BENINESE 53 mL/min/1.73m2 Critically low >=60 [facility] Comment on above: Performed By: #### B MP #### [facility] [address] [place] [address] [address] Rubens Rodriguez Glucose [Mass/Vol] 139 mg/dL Critically high 74-106 [facility] Comment on above: Performed By: #### B MP #### [facility] [address] [place] [address] [address] Rubens Rodriguez Potassium [Moles/Vol] 6.5 mmol/L Critically high 3.5-5.1 [facility] Comment on above: Performed By: #### B MP #### [facility] [address] [place] [address] Dr. Rubens Rodriguez Sodium [Moles/Vol] 135 mmol/L Critically low 136-145 [facility] Comment on above: Performed By: #### B MP #### [facility] [address] [place] [address] [address] Rubens Rodriguez Urea nitrogen [Mass/Vol] 52.0 mg/dL Critically high 7.0-18.0 [facility] Comment on above: Performed By: #### B MP #### [facility] [address] [place] [address] Dr. Rubens Rodriguez Urea nitrogen/Creatinine [Mass ratio] 39.4 mg/mg Normal [facility] Comment on above: Performed By: #### B MP #### [facility] [address] [place] [address] Dr. Rubens Rodriguez POINT OF CARE GLUCOSEon 07-03 Glucose [Mass/Vol] 201 mg/dL Critically high 74-106 [facility] Comment on above: Performed By: #### P OCGLUC #### [facility] [address] [place] [address] Dr. Rubens Rodriguez MRI LSPINE WO W [...] by: TAMMY DANIELLE Date: 2022-07-02 13:42 Normal [facility] XR LSPINE W_OBLS AND FLEX_EX Ton [...] by: JOYA MCRAE Date: 2022-06-15 16:45 Normal [facility] XR LSPINE MIN 4 VIEWSon 04-05 [...] by: JOYA MCRAE Date: 2022-04-30 14:23 Normal [facility] A1C with Estimated Average Liz lackey 03-22-2022 Glucose [Mass/Vol] 154 mg/dL Normal [facility] Comment on above: Result Comment: PERF ORMED BY: [place] [address] PATHOLOGIST DIAGNOSTIC CARDIAC SONOGRAPHER YAMILET BACK M.D. Performed By: #### C K, CKMB, HS TROP #### [facility] [address] HbA1c (Bld) [Mass fraction] 7.0 % High 4.3-5.6 [facility] Comment on above: Result Comment: Incr eased risk for diabetes: 5.7 - 6.4 diabetes: >6.4 glycemic control for adults with diabetes: <7.0 Performed By: #### C K, CKMB, HS TROP #### [facility] [address] [place] [address] Cholesterol [Mass/volume] in Serum or PlasmaOrdered By: Yves Garcia on 03-22-2022 Cholesterol [Mass/Vol] 125 mg/dL 140-200 [facility] Comment on above: Chol less than 200 m g/dl low riskChol 201-239 mg/dl borderline riskChol 240 mg/dl and greater high risk Cholesterol in LDL Calc [Mas s/Vol]Ordered By: Yves Garcia on 03-22-2022 Cholesterol in LDL [Mass/Vol] 59 mg/dL 0-100 [facility] Comment on above: LDL ATP III CLASSIFI CATIONLDL less than 100 mg/dL OptimalLDL 100-129 mg/dL Near or above optimalLDL 130-159 mg/dL Borderline highLDL 160-189 mg/dL HighLDL greater than 189 mg/dL Very high Cholesterol in VLDL Calc [Ma ss/Vol]Ordered By: Yves Garcia on 03-22-2022 Cholesterol in VLDL [Mass/Vol] 31 mg/dL [facility] Creatine Kinaseon 03-22-2022 CK [Catalytic activity/Vol] 96 U/L Normal [facility] Comment on above: Performed By: #### C K, CKMB, HS TROP #### [facility] [address] CK [Catalytic activity/Vol] 103 U/L Normal [facility] Comment on above: Performed By: #### C K, CKMB, HS TROP #### [facility] [address] Creatine kinase [Enzymatic a ctivity/volume] in Serum or PlasmaOrdered By: Yves Garcia on 03-22-2022 CK [Catalytic activity/Vol] 96 U/L [facility] Creatinine Kinase MBon 03-22 CK.MB [Mass/Vol] 1.7 ng/mL Normal 0.6-6.3 [facility] Comment on above: Performed By: #### C K, CKMB, HS TROP #### [address] CKMB Relative Index 1.7 % Normal 0.00-2.50 [facility] Comment on above: Performed By: #### C K, CKMB, HS TROP #### [facility] [address] CK.MB [Mass/Vol] 2.1 ng/mL Normal 0.6-6.3 [facility] Comment on above: Performed By: #### C K, CKMB, HS TROP #### [facility] [address] CKMB Relative Index 2.0 % Normal 0.00-2.50 [facility] Comment on above: Performed By: #### C K, CKMB, HS TROP #### [facility] [address] [place], [place] [id number] [facility] ECG 12 lead ECGon 03-22-2022 ECG 12 lead ECG [facility] Main [place] [address] [place], [place] [id number] Electrocardiograph Report Signed Patient: Tammy Wu MR#: [id number] 94 : 1950 Acct:[id number] Age/Sex: 72 / M ADM Date: 03/21/22 Loc: Room: [address] [place] [address] Type: DIS INOo Attending Dr: Jakub Andrews [...] MUS Signed By Mercedes Hilliard DO 03/24 [facility] Glucose Glucometer (BldC) [M ass/Vol]Ordered By: Jakub Andrews on 03-22-2022 Glucose [Mass/Vol] 159 mg/dL [facility] Comment on above: Random Glucose Refer ence Range is dependent on time and content of last meal. Glucose of more than 200 mg/dL in a nonstressed, ambulatory subject supports the diagnosis of Diabetes Mellitus. Glucose Poct Glucometerson 1 05-23-2021 Commemt1 Glu2: Cleaned Meter [facility] Comment on above: Result Comment: PERF ORMED BY: [place] [address] PATHOLOGIST DIAGNOSTIC CARDIAC SONOGRAPHER YAMILET BACK M.D. Performed By: #### C K, CKMB, HS TROP #### [facility] [address] [place] [id number] [place] Glucose [Mass/Vol] 159 mg/dL Normal [facility] Comment on above: Result Comment: [place] om Glucose Reference Range is dependent on time and content of last meal. Glucose of more than 200 mg/dL in a nonstressed, ambulatory subject supports the diagnosis of Diabetes Mellitus. Performed By: #### C K, CKMB, HS TROP #### [facility] [address] [place] [address] [place] Commemt1 Glu2: Cleaned Meter Normal [facility] Comment on above: Result Comment: PERF ORMED BY: [facility] [address] [place] [address] PATHOLOGIST DIAGNOSTIC CARDIAC SONOGRAPHER YAMILET BACK M.D. Performed By: #### Ralph Mahoney, CKMB, HS TROP #### [facility] [address] Glucose [Mass/Vol] 154 mg/dL Normal [facility] Comment on above: Result Comment: [place] om Glucose Reference Range is dependent on time and content of last meal. Glucose of more than 200 mg/dL in a nonstressed, ambulatory subject supports the diagnosis of Diabetes Mellitus. Performed By: #### Ralph Mahoney, CKMB, HS TROP #### [facility] [address] [place] [id number] [place] Glucose [Mass/Vol] 137 mg/dL Normal [facility] Comment on above: Result Comment: [place] om Glucose Reference Range is dependent on time and content of last meal. Glucose of more than 200 mg/dL in a nonstressed, ambulatory subject supports the diagnosis of Diabetes Mellitus. PERFORMED BY: [facility] [address] [place] [address] PATHOLOGIST DIAGNOSTIC CARDIAC SONOGRAPHER YAMILET BACK M.D. Performed By: #### Ralph Mahoney, CKSTEFFANY, HS TROP #### [facility] [address] Glucose mean value [Mass/vol ume] in Blood Estimated from glycated hemoglobinOrdered By: Yves Garcia on 03-22-2022 Average glucose Estimated from glycated hemoglobin (Bld) [Mass/Vol] 154 mg/dL [facility] Hemoglobin A1c percentageOrd ered By: Yves Avadottyarielle on 03-22-2022 HbA1c (Bld) [Mass fraction] 7.0 % 4.3-5.6 [facility] Comment on above: Increased risk for [...] K, CKMB, HS TROP #### [facility] [address] Cholesterol in HDL [Mass/Vol] 34 mg/dL Normal 29-71 [facility] Comment on above: Result Comment: HDL CHOL ATP-III CLASSIFICATION Cardiovascular Risk HDL > or equal to 60 mg/dL LOW HDL < 40 mg/dL HIGH Performed By: #### C K, CKMB, HS TROP #### [facility] [address] Cholesterol.total/Chol esterol in HDL [Mass ratio] 3.7 {ratio} Normal <5.0 [facility] Comment on above: Result Comment: PERF ORMED BY: [place] [address] PATHOLOGIST DIAGNOSTIC CARDIAC SONOGRAPHER YAMILET BACK M.D. Performed By: #### C K, CKMB, HS TROP #### [facility] [address] [place] [id number] [place] LDL Cholesterol,Calculated 59 mg/dL Normal 0-100 [facility] Comment on above: Result Comment: LDL ATP III CLASSIFICATION LDL less than 100 mg/dL Optimal LDL 100-129 mg/dL Near or above optimal LDL 130-159 mg/dL Borderline high LDL 160-189 mg/dL High LDL greater than 189 mg/dL Very high Performed By: #### C K, CKMB, HS TROP #### [facility] [address] Triglyceride w/Reflex 158 mg/dL High 35-149 [facility] Comment on above: Result Comment: TRIG ATP III CLASSIFICATION TRIG less than 150 mg/dL Normal TRIG 150-199 mg/dL Borderline high TRIG 200-500 mg/dL High TRIG greater than 500 mg/dL Very high Standard traceable to the Center for Disease Conrtrol and Prevention (CDC) test method. Performed By: #### C K, CKMB, HS TROP #### [facility] [address] VLDL CHOLESTEROL 31 mg/dL Normal [facility] Comment on above: Performed By: #### C K, CKMB, HS TROP #### [facility] [address] No Panel InformationOrdered By: Jakub Andrews on 03-22-2022 Bedside Glucose Comment Glu2: cleaned meter [facility] Serum or plasma creatine kin ase MB (CKMB)/total creatine kinase (CK) ratio by calculaOrdered By: Yves Garcia on 03-22-2022 CK.MB Calc [Catalytic fraction] 1.7 % 0.00-2.50 [facility] Serum or plasma creatine kin ase MB measurement (mass/volume)Ordered By: Yves Garcia on 03-22-2022 CK.MB [Mass/Vol] 1.7 ng/mL 0.6-6.3 [facility] Serum or plasma high density lipoprotein (HDL) cholesterol measurementOrdered By: Yves Garcia on 03-22-2022 Cholesterol in HDL [Mass/Vol] 34 mg/dL 29-71 [facility] Comment on above: HDL CHOL ATP-III CLA SSIFICATION Cardiovascular RiskHDL > or equal to 60 mg/dL LOWHDL < 40 mg/dL HIGH Serum or plasma total choles terol/high density lipoprotein (HDL) cholesterol mass ratOrdered By: vYes Garcia on 03-22-2022 Cholesterol.total/Chol esterol in HDL [Mass ratio] 3.7 {ratio} <5.0 [facility] Triglyceride [Mass/volume] i n Serum or PlasmaOrdered By: Yves Garcia on 03-22-2022 Triglyceride [Mass/Vol] 158 mg/dL 35-149 [facility] Comment on above: TRIG ATP III CLASSIF ICATIONTRIG less than 150 mg/dL NormalTRIG 150-199 mg/dL Borderline highTRIG 200-500 mg/dL High TRIG greater than 500 mg/dL Very highStandard traceable to the Center for Disease Conrtrol and Prevention (CDC) test method. Troponin I High Sensitivityo n 03-22-2022 Troponin I High Sensitivity 18 pg/mL Normal 0-20 [facility] Comment on above: Result Comment: PERF ORMED BY: [facility] [address] [place] [address] PATHOLOGIST DIAGNOSTIC CARDIAC SONOGRAPHER YAMILET BACK M.D. Performed By: #### C K, CKMB, HS TROP #### [facility] [address] [place] [address] Troponin I High Sensitivity 19 pg/mL Normal 0-20 [facility] Comment on above: Result Comment: PERF ORMED BY: [facility] [address] [place] [address] PATHOLOGIST DIAGNOSTIC CARDIAC SONOGRAPHER YAMILET BACK M.D. Performed By: #### C K, CKMB, HS TROP #### [facility] [address] [place] [address] Troponin I.cardiac [Mass/vol ume] in Serum or Plasma by High sensitivity methodOrdered By: Yves Garcia on 03-22-2022 Troponin I.cardiac High sensitivity method [Mass/Vol] 18 pg/mL 0-20 [facility] Activated partial thrombopla stin time (aPTT) in platelet poor plasma by coagulation aOrdered By: Juan Pablo Aguilar on 03-21-2022 aPTT Coag (PPP) [Time] 28.5 s 25.1-36.5 [facility] B-Type Natriuretic Peptideon 03-21-2022 Natriuretic peptide B (Bld) [Mass/Vol] 74.0 pg/mL Normal 5-100 [facility] Comment on above: Result Comment: PERF ORMED BY: [facility] [address] [place] [id number] PATHOLOGIST DIAGNOSTIC CARDIAC SONOGRAPHER YAMILET BACK M.D. Performed By: #### C K, CKMB, HS TROP #### [facility] [address] Basic Metabolic Panelon - Anion gap [Moles/Vol] 12.7 mmol/L Normal 6.0-15.0 [facility] Comment on above: Performed By: #### B REHABILITATION CASE COORDINATOR, CBC, PT, PTT, BMP, CK, CKMB, HS TROP #### [facility] [address] Calcium [Mass/Vol] 10.0 mg/dL Normal 8.2-10.2 [facility] Comment on above: Performed By: #### B REHABILITATION CASE COORDINATOR, CBC, PT, PTT, BMP, CK, CKMB, HS TROP #### [facility] [address] Chloride [Moles/Vol] 104 mmol/L Normal 95-114 [facility] Comment on above: Performed By: #### B REHABILITATION CASE COORDINATOR, CBC, PT, PTT, BMP, CK, CKMB, HS TROP #### [facility] [address] CO2 [Moles/Vol] 24.4 mmol/L Normal 22.0-30.0 [facility] Comment on above: Performed By: #### B REHABILITATION CASE COORDINATOR, CBC, PT, PTT, BMP, CK, CKMB, HS TROP #### [facility] [address] Creatinine [Mass/Vol] 0.96 mg/dL Normal 0.64-1.27 [facility] Comment on above: Performed By: #### B REHABILITATION CASE COORDINATOR, CBC, PT, PTT, BMP, CK, CKMB, HS TROP #### [address] Creatinine Clr Calc Pharmacy 94.11 [facility] Comment on above: Result Comment: PERF ORMED BY: [place] [address] PATHOLOGIST DIAGNOSTIC CARDIAC SONOGRAPHER YAMILET BACK M.D. Performed By: #### B REHABILITATION CASE COORDINATOR, CBC, PT, PTT, BMP, CK, CKMB, HS TROP #### [address] Estimated GFR ( Anum > 60 [facility] Comment on above: Result Comment: GFR estimated reference range: According to KDOQI guidelines, <60 ml/min/1.73m2 is sufficient to diagnose a patient with chronic kidney disease. Performed By: #### B REHABILITATION CASE COORDINATOR, CBC, PT, PTT, BMP, CK, CKMB, HS TROP #### [facility] [address] Estimated GFR (Non- Am > 60 [facility] Comment on above: Performed By: #### B REHABILITATION CASE COORDINATOR, CBC, PT, PTT, BMP, CK, CKMB, HS TROP #### [address] Glucose [Mass/Vol] 123 mg/dL High 70-100 [facility] Comment on above: Result Comment: [facility] [place] Glucose Reference Range is dependent on time and content of last meal. Glucose of more than 200 mg/dL in a nonstressed, ambulatory subject supports the diagnosis of Diabetes Mellitus. ADA recommended reference range Performed By: #### B REHABILITATION CASE COORDINATOR, CBC, PT, PTT, BMP, CK, CKMB, HS TROP #### [address] Potassium [Moles/Vol] 5.1 mmol/L Normal 3.5-5.1 [facility] Comment on above: Performed By: #### B REHABILITATION CASE COORDINATOR, CBC, PT, PTT, BMP, CK, CKMB, HS TROP #### [address] Sodium [Moles/Vol] 136 mmol/L Normal 136-146 [facility] Comment on above: Performed By: #### B REHABILITATION CASE COORDINATOR, CBC, PT, PTT, BMP, CK, CKMB, HS TROP #### [address] Urea nitrogen [Mass/Vol] 20 mg/dL Normal 9-23 [facility] Comment on above: Performed By: #### B REHABILITATION CASE COORDINATOR, CBC, PT, PTT, BMP, CK, CKMB, HS TROP #### [facility] [address] [place] [address] [place] Basophils Auto (Bld) [#/Vol] Ordered By: Juan Pablo Aguilar on 03-21-2022 Basophils (Bld) [#/Vol] 0.0 10*3/uL 0.0-0.2 [facility] Basophils/100 WBC Auto (Bld) Ordered By: Juan Pablo Aguilar on 03-21-2022 Basophils/100 WBC (Bld) 0.6 % . [facility] Complete Blood Count Auto Di ffon 03-21-2022 Basophils (Bld) [#/Vol] 0.0 10*3/uL Normal 0.0-0.2 [facility] Comment on above: Result Comment: PERF ORMED BY: [place] [address] PATHOLOGIST DIAGNOSTIC CARDIAC SONOGRAPHER YAMILET BACK M.D. Performed By: #### B REHABILITATION CASE COORDINATOR, CBC, PT, PTT, BMP, CK, CKMB, HS TROP #### [facility] [address] Basophils/100 WBC (Bld) 0.6 % Normal . [facility] Comment on above: Performed By: #### B REHABILITATION CASE COORDINATOR, CBC, PT, PTT, BMP, CK, CKMB, HS TROP #### [facility] [address] [place] [address] [place] Eosinophils (Bld) [#/Vol] 0.2 10*3/uL Normal 0.0-0.45 [facility] Comment on above: Performed By: #### B REHABILITATION CASE COORDINATOR, CBC, PT, PTT, BMP, CK, CKMB, HS TROP #### [facility] [address] [place] [address] [place] Eosinophils/100 WBC (Bld) 2.7 % Normal . [facility] Comment on above: Performed By: #### B REHABILITATION CASE COORDINATOR, CBC, PT, PTT, BMP, CK, CKMB, HS TROP #### [facility] [address] [place] [address] Erythrocyte distribution width (RBC) [Ratio] 14.1 % Normal 12.0-14.8 [facility] Comment on above: Performed By: #### B REHABILITATION CASE COORDINATOR, CBC, PT, PTT, BMP, CK, CKMB, HS TROP #### [address] Hematocrit (Bld) [Volume fraction] 39.2 % Normal 38.8-50.0 [facility] Comment on above: Performed By: #### B REHABILITATION CASE COORDINATOR, CBC, PT, PTT, BMP, CK, CKMB, HS TROP #### [address] Hemoglobin (Bld) [Mass/Vol] 12.9 g/dL Low 13.0-17.0 [facility] Comment on above: Performed By: #### B REHABILITATION CASE COORDINATOR, CBC, PT, PTT, BMP, CK, CKMB, HS TROP #### [address] Lymphocytes (Bld) [#/Vol] 1.9 10*3/uL Normal 1.00-4.8 [facility] Comment on above: Performed By: #### B REHABILITATION CASE COORDINATOR, CBC, PT, PTT, BMP, CK, CKMB, HS TROP #### [address] Lymphocytes/100 WBC (Bld) 26.9 % Normal . [facility] Comment on above: Performed By: #### B REHABILITATION CASE COORDINATOR, CBC, PT, PTT, BMP, CK, CKMB, HS TROP #### [address] MCH (RBC) [Entitic mass] 30.8 pg Normal 27.5-35.2 [facility] Comment on above: Performed By: #### B REHABILITATION CASE COORDINATOR, CBC, PT, PTT, BMP, CK, CKMB, HS TROP #### [address] MCV (RBC) [Entitic vol] 93.4 fL Normal 83.5-101 [facility] Comment on above: Performed By: #### B REHABILITATION CASE COORDINATOR, CBC, PT, PTT, BMP, CK, CKMB, HS TROP #### [address] Mean Corpuscular HGB Conc 33.0 g/dL Normal 32.5-35.6 [facility] Comment on above: Performed By: #### B REHABILITATION CASE COORDINATOR, CBC, PT, PTT, BMP, CK, CKMB, HS TROP #### [place] [address] [place] Monocytes (Bld) [#/Vol] 0.8 10*3/uL Normal 0.0-0.8 [facility] Comment on above: Performed By: #### B REHABILITATION CASE COORDINATOR, CBC, PT, PTT, BMP, CK, CKMB, HS TROP #### [address] Monocytes/100 WBC (Bld) 17.83 % Normal 0.00-20.00 [facility] Comment on above: Performed By: #### B REHABILITATION CASE COORDINATOR, CBC, PT, PTT, BMP, CK, CKMB, HS TROP #### [address] Monocytes/100 WBC (Bld) 11.1 % Normal . [facility] Comment on above: Performed By: #### B REHABILITATION CASE COORDINATOR, CBC, PT, PTT, BMP, CK, CKMB, HS TROP #### [place] [address] [place] Neutrophils (Bld) [#/Vol] 4.2 10*3/uL Normal 1.8-7.7 [facility] Comment on above: Performed By: #### B REHABILITATION CASE COORDINATOR, CBC, PT, PTT, BMP, CK, CKMB, HS TROP #### [place] [address] [place] Neutrophils/100 WBC (Bld) 58.7 % Normal . [facility] Comment on above: Performed By: #### B REHABILITATION CASE COORDINATOR, CBC, PT, PTT, BMP, CK, CKMB, HS TROP #### [place] [address] [place] NRBC% 0.1 /100{WBC} Normal 0-0.5 [facility] Comment on above: Performed By: #### B REHABILITATION CASE COORDINATOR, CBC, PT, PTT, BMP, CK, CKMB, HS TROP #### [address] Platelet mean volume (Bld) [Entitic vol] 7.8 fL Normal 6.6-10.1 [facility] Comment on above: Performed By: #### B REHABILITATION CASE COORDINATOR, CBC, PT, PTT, BMP, CK, CKMB, HS TROP #### [address] Platelets (Bld) [#/Vol] 205 10*3/uL Normal 150-450 [facility] Comment on above: Performed By: #### B REHABILITATION CASE COORDINATOR, CBC, PT, PTT, BMP, CK, CKMB, HS TROP #### [address] RBC (Bld) [#/Vol] 4.20 10*6/uL Normal 3.90-5.60 [facility] Comment on above: Performed By: #### B REHABILITATION CASE COORDINATOR, CBC, PT, PTT, BMP, CK, CKMB, HS TROP #### [address] WBC (Bld) [#/Vol] 7.1 10*3/uL Normal 4.1-10.5 [facility] Comment on above: Performed By: #### B REHABILITATION CASE COORDINATOR, CBC, PT, PTT, BMP, CK, CKMB, HS TROP #### [address] Creatine Kinaseon 03-21-2022 CK [Catalytic activity/Vol] 122 U/L Normal 22-269 [facility] Comment on above: Performed By: #### C K, CKMB, HS TROP #### [address] CK [Catalytic activity/Vol] 153 U/L Normal 22-269 [facility] Comment on above: Performed By: #### B REHABILITATION CASE COORDINATOR, CBC, PT, PTT, BMP, CK, CKMB, HS TROP #### [facility] [address] [place] [id number] [place] Creatine kinase [Enzymatic a ctivity/volume] in Serum or PlasmaOrdered By: Juan Pablo Aguilar on 03-21-2022 CK [Catalytic activity/Vol] 153 U/L 22 [facility] Creatinine Kinase MBon 03-21 CK.MB [Mass/Vol] 2.8 ng/mL Normal 0.6-6.3 [facility] Comment on above: Performed By: #### C K, CKMB, HS TROP #### [facility] [address] CKMB Relative Index 2.2 % Normal 0.00-2.50 [facility] Comment on above: Performed By: #### C K, CKMB, HS TROP #### [facility] [address] [place] [address] [place] CK.MB [Mass/Vol] 3.0 ng/mL Normal 0.6-6.3 [facility] Comment on above: Performed By: #### C K, CKMB, HS TROP #### [facility] [address] CKMB Relative Index 1.9 % Normal 0.00-2.50 [facility] Comment on above: Performed By: #### C K, CKMB, HS TROP #### [facility] [address] [place] [address] [place] Creatinine and Glomerular fi ltration rate.predicted panel (S/P/Bld)Ordered By: Juan Pablo Aguilar on 03-21-2022 Creatinine [Mass/Vol] 0.96 mg/dL 0.64-1.27 [facility] ECG 12 lead ECGon 03-21-2022 ECG 12 lead ECG [facility] [place] [address] [place] [address] Electrocardiograph Report Signed Patient: Tammy Wu MR#: [id number] [birth year] : 1950 Acct:[id number] Age/Sex: 72 / M ADM Date: 03/21/22 Loc: Room: 1Y0065-2 Type: DIS INOo Attending Dr: Jakub Andrews [...] By Brook Whittington MD 03/21/22 1635 [facility] Eosinophils Auto (Bld) [#/Vo l]Ordered By: Juan Pablo Aguilar on 03-21-2022 Eosinophils (Bld) [#/Vol] 0.2 10*3/uL 0.0-0.45 [facility] Eosinophils/100 WBC Auto (Bl d)Ordered By: Juan Pablo Aguilar on 03-21-2022 Eosinophils/100 WBC (Bld) 2.7 % . [facility] Erythrocyte distribution wid th Auto (RBC) [Ratio]Ordered By: Juan Pbalo Aguilar on 03-21-2022 Erythrocyte distribution width (RBC) [Ratio] 14.1 % 12.0-14.8 [facility] Estimated glomerular filtrat ion rate (GFR) non- AmericanOrdered By: Juan Pablo Aguilar on 03-21-2022 GFR/1.73 sq M.predicted among non-blacks MDRD (S/P/Bld) [Vol rate/Area] > 60 mL/Min [facility] Glucose Poct Glucometerson 1 05-22-2021 Commemt1 Glu2: Cleaned Meter Normal [facility] Comment on above: Result Comment: PERF ORMED BY: [facility] [address] [place] [address] PATHOLOGIST DIAGNOSTIC CARDIAC SONOGRAPHER YAMILET BACK M.D. Performed By: #### C K, CKMB, HS TROP #### [facility] [address] [place] [id number] [place] Glucose [Mass/Vol] 142 mg/dL Normal [facility] Comment on above: Result Comment: [place] Glucose Reference Range is dependent on time and content of last meal. Glucose of more than 200 mg/dL in a nonstressed, ambulatory subject supports the diagnosis of Diabetes Mellitus. Performed By: #### C K, CKMB, HS TROP #### [facility] [address] [place] [id number] [place] Hematocrit Auto (Bld) [Volum e fraction]Ordered By: Juan Pablo Aguilar on 03-21-2022 Hematocrit (Bld) [Volume fraction] 39.2 % 38.8-50.0 [facility] Hemoglobin [Mass/volume] in BloodOrdered By: Juan Pablo Aguilar on 03-21-2022 Hemoglobin (Bld) [Mass/Vol] 12.9 g/dL 13.0-17.0 [facility] Laboratory - Chemistry and C hemistry - challengeOrdered By: Juan Pablo Aguilar on 03-21-2022 Natriuretic peptide B (Bld) [Mass/Vol] 74.0 pg/mL 5-100 [facility] Laboratory - CoagulationOrde red By: Juan Pablo Aguilar on 03-21-2022 PT Coag (PPP) [Time] 11.6 s 9.0-12.9 [facility] Leukocytes [#/volume] correc usama for nucleated erythrocytes in Blood by Automated counOrdered By: Juan Pablo Aguilar on 03-21-2022 WBC corrected for nucl RBC Auto (Bld) [#/Vol] 7.1 10*3/uL 4.1-10.5 [facility] Lymphocytes Auto (Bld) [#/Vo l]Ordered By: Juan Pablo Aguilar on 03-21-2022 Lymphocytes (Bld) [#/Vol] 1.9 10*3/uL 1.00-4.8 [facility] Lymphocytes/100 WBC Auto (Bl d)Ordered By: Juan Pablo Aguilar on 03-21-2022 Lymphocytes/100 WBC (Bld) 26.9 % . [facility] MCH Auto (RBC) [Entitic mass ]Ordered By: Juan Pablo Aguilar on 03-21-2022 MCH (RBC) [Entitic mass] 30.8 pg 27.5-35.2 [facility] MCHC Auto (RBC) [Mass/Vol]Or dered By: Juan Pablo Aguilar on 03-21-2022 MCHC (RBC) [Mass/Vol] 33.0 g/dL 32.5-35.6 [facility] MCV Auto (RBC) [Entitic vol] Ordered By: Juan Pablo Aguilar on 03-21-2022 MCV (RBC) [Entitic vol] 93.4 fL 83.5-101 [facility] Monocyte distribution width [Entitic volume] in Blood by AutomatedOrdered By: Juan Pablo Aguilar on 03-21-2022 Monocyte distribution width Auto (Bld) [Entitic vol] 17.83 % 0.00-20.00 [facility] Monocytes Auto (Bld) [#/Vol] Ordered By: Juan Pablo Aguilar on 03-21-2022 Monocytes (Bld) [#/Vol] 0.8 10*3/uL 0.0-0.8 [facility] Monocytes/100 WBC Auto (Bld) Ordered By: Juan Pablo Aguilar on 03-21-2022 Monocytes/100 WBC (Bld) 11.1 % . [facility] Neutrophils Auto (Bld) [#/Vo l]Ordered By: Juan Pablo Aguilar on 03-21-2022 Neutrophils (Bld) [#/Vol] 4.2 10*3/uL 1.8-7.7 [facility] Neutrophils/100 WBC Auto (Bl d)Ordered By: Juan Pablo Aguilar on 03-21-2022 Neutrophils/100 WBC (Bld) 58.7 % . [facility] No Panel InformationOrdered By: Juan Pablo Aguilar on 03-21-2022 Estimated GFR () > 60 mL/Min [facility] Comment on above: GFR estimated refere nce range: According to KDOQI guidelines, <60 ml/min/1.73m2 is sufficient to diagnose a patient with chronic kidney disease. Pharmacy Creatinine Clearance (Chem 94.11 [facility] Nucleated erythrocytes [Pres ence] in Blood by Automated countOrdered By: Juan Pablo Aguilar on 03-21-2022 Nucleated RBC Auto Ql (Bld) 0.1 /100{WBC} 0-0.5 [facility] Partial Thromboplastin Timeo n 03-21-2022 aPTT Coag (Bld) [Time] 28.5 s Normal 25.1-36.5 [facility] Comment on above: Result Comment: PERF ORMED BY: [facility] [address] [place] [address] PATHOLOGIST DIAGNOSTIC CARDIAC SONOGRAPHER YAMILET BACK M.D. Performed By: #### B REHABILITATION CASE COORDINATOR, CBC, PT, PTT, BMP, CK, CKMB, HS TROP #### [facility] [address] [place] [id number] [facility] Platelet mean volume Auto (B ld) [Entitic vol]Ordered By: Juan Pablo Aguilar on 03-21-2022 Platelet mean volume (Bld) [Entitic vol] 7.8 fL 6.6-10.1 [facility] Platelet poor plasma interna tional normalized ratio (INR) by coagulation assay (relatOrdered By: Juan Pablo Aguilar on 03-21-2022 INR Coag (PPP) [Relative time] 1.0 {INR} [facility] Comment on above: INR Therapeutic Rang [...] 03-21-2022 Platelets (Bld) [#/Vol] 205 10*3/uL 150-450 [facility] Prothrombin Time INRon 03-21 INR Coag (PPP) [Relative time] 1.0 {INR} [facility] Comment on above: Result Comment: INR [...] 3 - 4.5 Performed By: #### B REHABILITATION CASE COORDINATOR, CBC, PT, PTT, BMP, CK, CKMB, HS TROP #### [facility] [address] PT Coag (PPP) [Time] 11.6 s Normal 9.0-12.9 [facility] Comment on above: Performed By: #### B REHABILITATION CASE COORDINATOR, CBC, PT, PTT, BMP, CK, CKMB, HS TROP #### [facility] [address] RBC Auto (Bld) [#/Vol]Ordere d By: Juan Pablo Aguilar on 03-21-2022 RBC (Bld) [#/Vol] 4.20 10*6/uL 3.90-5.60 [facility] Serum or plasma anion gap de terminationOrdered By: Juan Pablo Aguilar on 03-21-2022 Anion gap [Moles/Vol] 12.7 mmol/L 6.0-15.0 [facility] Serum or plasma calcium rossana urement (mass/volume)Ordered By: Juan Pablo Aguilar on 03-21-2022 Calcium [Mass/Vol] 10.0 mg/dL 8.2-10.2 [facility] Serum or plasma chloride izzy surement (moles/volume)Ordered By: Juan Pablo Aguilar on 03-21-2022 Chloride [Moles/Vol] 104 mmol/L 95-114 [facility] Serum or plasma creatine kin ase MB (CKMB)/total creatine kinase (CK) ratio by calculaOrdered By: Juan Pablo Aguilar on 03-21-2022 CK.MB Calc [Catalytic fraction] 1.9 % 0.00-2.50 [facility] Serum or plasma creatine kin ase MB measurement (mass/volume)Ordered By: Juan Pablo Aguilar on 03-21-2022 CK.MB [Mass/Vol] 3.0 ng/mL 0.6-6.3 [facility] Serum or plasma glucose rossana urement (mass/volume)Ordered By: Juan Pablo Aguilar on 03-21-2022 Glucose [Mass/Vol] 123 mg/dL 70-100 [facility] Comment on above: ADA recommended refe rence rangeRandom Glucose Reference Range is dependent on time and content of last meal. Glucose of more than 200 mg/dL in a nonstressed, ambulatory subject supports the diagnosis of Diabetes Mellitus. Serum or plasma potassium me asurement (moles/volume)Ordered By: Juan Pablo Aguilar on 03-21-2022 Potassium [Moles/Vol] 5.1 mmol/L 3.5-5.1 [facility] Serum or plasma sodium measu rement (moles/volume)Ordered By: Juan Pablo Aguilar on 03-21-2022 Sodium [Moles/Vol] 136 mmol/L 136-146 [facility] Serum or plasma total carbon dioxide measurement (moles/volume)Ordered By: Juan Pablo Aguilar on 03-21-2022 CO2 [Moles/Vol] 24.4 mmol/L 22.0-30.0 [facility] Serum or plasma urea nitroge n measurement (mass/volume)Ordered By: Juan Pablo Aguilar on 03-21-2022 Urea nitrogen [Mass/Vol] 20 mg/dL 9-23 [facility] Troponin I High Sensitivityo n 03-21-2022 Troponin I High Sensitivity 11 pg/mL Normal 0-20 [facility] Comment on above: Result Comment: PERF ORMED BY: [place] [address] PATHOLOGIST DIAGNOSTIC CARDIAC SONOGRAPHER YAMILET BACK M.D. Performed By: #### C K, CKMB, HS TROP #### [facility] [address] Troponin I High Sensitivity 11 pg/mL Normal 0-20 [facility] Comment on above: Result Comment: PERF ORMED BY: [facility] [address] [place] [address] PATHOLOGIST DIAGNOSTIC CARDIAC SONOGRAPHER YAMILET BACK M.D. Performed By: #### H S TROP #### [facility] [address] [place], [place] [id number] [place] Troponin I High Sensitivity 10 pg/mL Normal 0-20 [facility] Comment on above: Result Comment: PERF ORMED BY: [facility] [address] [place] [address] PATHOLOGIST DIAGNOSTIC CARDIAC SONOGRAPHER YAMILET BACK M.D. Performed By: #### C K, CKMB, HS TROP #### [address] Troponin I.cardiac [Mass/vol ume] in Serum or Plasma by High sensitivity methodOrdered By: Tyree Husain on 03-21-2022 Troponin I.cardiac High sensitivity method [Mass/Vol] 11 pg/mL 0-20 [facility] WBC Auto (Bld) [#/Vol]Ordere d By: Juan Pablo Aguilar on 03-21-2022 WBC (Bld) [#/Vol] 7.1 10*3/uL 4.1-10.5 [facility] XR chest 2V*on 03-21-2022 XR chest 2V* [facility] [place] [address] [place] [address] XRay Report Signed Patient: Tammy Wu MR#: [id number] 94 : 1950 Acct:[id number] Age/Sex: 72 / M ADM Date: 03/21/22 [...] Alexei Munoz M.D.03/21/2022 1:03 PM Dictation Location: [place] [address] Transcribed By: [facility] 03/21/22 1303 Dictated By: Alexei Munoz II, MD 03/21/22 1302 Signed By: 03/21/22 1303 [facility] Office Visit (Cardiology)on 03-17-2022 Follow-up visit [...] 45.0-49.9, adult Healthy Weight Tips; Status:Complete; Done: [id number] Some eating tips that can help you lose weight.; Status:Complete; Done: [id number] Patient Instructions Please bring all medicines, vitamins, [...] negative for complaint. Vitals Vital Signs Recorded: 17Mar2022 04:57PMRecorded: 17Mar2022 02:37PM Heart Rate60, R Jvkltm40, R Radial Kyromqkn780, RUE, Ajstwii550, RUE, Sitting Wmvmyugns24, RUE, Vlyzbgw59, RUE, Sitting Height5 ft 7 in5 ft 7 in Vduork411 lb 310 lb BMI Jgnunzbxmy81.55 kg/m248.55 kg/m2 BSA Calculated2.442.44 Tobacco Useb) No PHQ-2 #1. Over the last 2 weeks have you felt down, depressed or hopeless? (If yes, answer PHQ-9 belo (more content not included)... Normal [facility] Tobacco Screening.on Adult depression screening assessment No Merged with [facility] [employer] 250 DO Work Phone: Fall risk assessment a) No falls within the last year Merged with [facility] [employer] [place] 250 DO Work Phone: Tobacco use status CPHS b) No Merged with [facility] [employer] [place] 250 DO Work Phone: XR CHEST [...] JOYA MCRAE Date: 2021-10-20 15:46 Normal [facility] PSA SCREEN (MEDICARE)on 06-02 TPSA 0.380 ng/mL Normal <4.000 [facility] Associate Entertainment Editor Comment on above: Result Comment: PSA Test Method: ECLIA/Jose e 601 Performed By: #### P [facility] #### [facility] [address] [facility] NIR YUN [id number] Complete Blood Counton 03-09 Erythrocyte distribution width (RBC) [Ratio] 14.2 % Normal 11.0-15.0 [facility] Specialist Comment on above: Performed By: #### C BC, LIPD, TSH reflex FT4, URIC, CMP #### [facility] [address] [place], [place] [id number] Hematocrit (Bld) [Volume fraction] 40.6 % Normal 38.5-50.0 [facility] Specialist Comment on above: Performed By: #### C BC, LIPD, TSH reflex FT4, URIC, CMP #### [facility] [address] [place], [place] [id number] Hemoglobin (Bld) [Mass/Vol] 13.0 g/dL Normal 13.0-17.1 [facility] Specialist Comment on above: Performed By: #### C BC, LIPD, TSH reflex FT4, URIC, CMP #### [facility] [address] [place], [place] [id number] MCH (RBC) [Entitic mass] 31.1 pg Normal 27.0-33.0 [facility] Specialist Comment on above: Performed By: #### C BC, LIPD, TSH reflex FT4, URIC, CMP #### [facility] [address] [place], [place] [id number] MCHC (RBC) [Mass/Vol] 32.0 g/dL Normal 32.0-36.0 [facility] Comment on above: Performed By: #### C BC, LIPD, TSH reflex FT4, URIC, CMP #### [facility] [address] [place], [place] [id number] MCV (RBC) [Entitic vol] 97 fL Normal 80-100 [facility] Specialist Comment on above: Performed By: #### C BC, LIPD, TSH reflex FT4, URIC, CMP #### [facility] [address] [place], [place] [id number] Platelet mean volume (Bld) [Entitic vol] 9.60 fL Normal 7.50-12.50 [facility] Specialist Comment on above: Performed By: #### C BC, LIPD, TSH reflex FT4, URIC, CMP #### [facility] [address] [place], [place] [id number] Platelets (Bld) [#/Vol] 185 10*3/uL Normal 140-400 [facility] Associate Entertainment Editor Comment on above: Performed By: #### C BC, LIPD, TSH reflex FT4, URIC, CMP #### [facility] [address] [place], [place] [id number] RBC (Bld) [#/Vol] 4.18 10*6/uL Low 4.20-5.80 [facility] Specialist Comment on above: Performed By: #### C BC, LIPD, TSH reflex FT4, URIC, CMP #### [facility] [address] [place], [place] [id number] RDW-SD 50.9 fL High 37.0-50.0 [facility] Associate Entertainment Editor Comment on above: Performed By: #### C BC, LIPD, TSH reflex FT4, URIC, CMP #### [facility] [address] [place], [place] [id number] WBC (Bld) [#/Vol] 5.9 10*3/uL Normal 3.8-11.0 [facility] [facility] Associate Entertainment Editor Comment on above: Performed By: #### C BC, LIPD, TSH reflex FT4, URIC, CMP #### [facility] [address] [place], [place] [id number] Comprehensive Metabolic Pane [facility] 03-09-2021 Albumin [Mass/Vol] 4.8 g/dL Normal 3.6-5.1 [facility] Associate Entertainment Editor Comment on above: Performed By: #### C BC, LIPD, TSH reflex FT4, URIC, CMP #### [facility] [address] [place], [place] [id number] Albumin/Globulin [Mass ratio] 1.8 {ratio} Normal 1.0-2.5 [facility] Associate Entertainment Editor Comment on above: Performed By: #### C BC, LIPD, TSH reflex FT4, URIC, CMP #### [facility] [address] [place], [place] [id number] ALP [Catalytic activity/Vol] 83 U/L Normal 40-129 [facility] Associate Entertainment Editor Comment on above: Performed By: #### C BC, LIPD, TSH reflex FT4, URIC, CMP #### [facility] [address] [place], [place] [id number] ALT [Catalytic activity/Vol] 34 U/L Normal 9-46 [facility] Comment on above: Result Comment: 03/04 Female reference range changed. Performed By: #### C BC, LIPD, TSH reflex FT4, URIC, CMP #### [facility] [address] [place], [place] [id number] Anion gap [Moles/Vol] 17 mmol/L Normal 12-20 [facility] Comment on above: Result Comment: Effe ctive 04/09/2019 reference range changed. Performed By: #### C BC, LIPD, TSH reflex FT4, URIC, CMP #### [facility] [address] [place], [place] [id number] AST [Catalytic activity/Vol] 22 U/L Normal 10-40 [facility] Comment on above: Performed By: #### C BC, LIPD, TSH reflex FT4, URIC, CMP #### [facility] [address] [place], [place] [id number] Bilirubin [Mass/Vol] 0.51 mg/dL Normal 0.30-1.20 [facility] Comment on above: Performed By: #### C BC, LIPD, TSH reflex FT4, URIC, CMP #### [facility] [address] [place], [place] [id number] BUN/CREA 33 Ratio High 6-22 [facility] Comment on above: Performed By: #### C BC, LIPD, TSH reflex FT4, URIC, CMP #### [facility] [address] [place], [place] [id number] Calcium [Mass/Vol] 10.8 mg/dL High 8.6-10.2 [facility] Comment on above: Performed By: #### C BC, LIPD, TSH reflex FT4, URIC, CMP #### [facility] [address] [place], [place] [id number] Chloride [Moles/Vol] 107 mmol/L Normal 98-107 [facility] Comment on above: Performed By: #### C BC, LIPD, TSH reflex FT4, URIC, CMP #### [facility] [address] [place], [place] [id number] CO2 [Moles/Vol] 23 mmol/L Normal 20-31 [facility] Comment on above: Performed By: #### C BC, LIPD, TSH reflex FT4, URIC, CMP #### [facility] [address] [place], [place] [id number] Creatinine [Mass/Vol] 0.9 mg/dL Normal 0.7-1.4 [facility] Comment on above: Performed By: #### C BC, LIPD, TSH reflex FT4, URIC, CMP #### [facility] [address] [place], [place] [id number] eGFRAA 96 mL/min/1.73m2 Normal >60 [facility] Comment on above: Performed By: #### C BC, LIPD, TSH reflex FT4, URIC, CMP #### [facility] [address] [place], [place] [id number] eGFRNAA 79 mL/min/1.73m2 Normal >60 [facility] Comment on above: Performed By: #### C BC, LIPD, TSH reflex FT4, URIC, CMP #### [facility] [address] [place], [place] [id number] Globulin (S) [Mass/Vol] 2.6 g/dL Normal 1.9-3.7 [facility] Comment on above: Performed By: #### C BC, LIPD, TSH reflex FT4, URIC, CMP #### [facility] [address] [place], [place] [id number] Glucose [Mass/Vol] 89 mg/dL Normal 65-99 [facility] Comment on above: Result Comment: For FASTING Glucose --- ADA reference ranges: Normal 65-99 mg/dl Prediabetes 100-125 Diabetes >/= 126 Performed By: #### C BC, LIPD, TSH reflex FT4, URIC, CMP #### [facility] [address] [place], [place] [id number] Potassium [Moles/Vol] 5.5 mmol/L Normal 3.5-5.5 [facility] Comment on above: Performed By: #### C BC, LIPD, TSH reflex FT4, URIC, CMP #### [facility] [address] [place], [place] [id number] Protein [Mass/Vol] 7.4 g/dL Normal 6.1-8.1 [employer] [facility] [place] Associate Entertainment Editor Comment on above: Performed By: #### C BC, LIPD, TSH reflex FT4, URIC, CMP #### [facility] [address] [place], [place] [id number] Sodium [Moles/Vol] 141 mmol/L Normal 135-146 [facility] [place] Associate Entertainment Editor Comment on above: Performed By: #### C BC, LIPD, TSH reflex FT4, URIC, CMP #### [facility] [address] [place], [place] [id number] Urea nitrogen [Mass/Vol] 31 mg/dL High 7- [facility] Associate Entertainment Editor Comment on above: Performed By: #### C BC, LIPD, TSH reflex FT4, URIC, CMP #### [facility] [address] [place], [place] [id number] Lipid Panelon 03-09-2021 Cholesterol [Mass/Vol] 138 mg/dL Normal 125-200 [facility] Comment on above: Result Comment: Low risk < 200mg/dL Borderline risk 201-239 mg/dl High risk > or equal to 240 Performed By: #### C BC, LIPD, TSH reflex FT4, URIC, CMP #### [facility] [address] [place], [place] [id number] Cholesterol in HDL [Mass/Vol] 38 mg/dL Low >40 [facility] Associate Entertainment Editor Comment on above: Result Comment: High Cardiovascular Risk HDL <40 mg/dL Low Cardiovascular Risk HDL > or equal to 60 mg/dl Performed By: #### C BC, LIPD, TSH reflex FT4, URIC, CMP #### [facility] [address] [place], [place] [id number] Cholesterol in LDL [Mass/Vol] 77 mg/dL Normal [facility] Associate Entertainment Editor Comment on above: Result Comment: LDL ATP III CLASSIFICATION LDL less than 100 mg/dl Optimal LDL 100-129 mg/dl Near or above optimal LDL 130-159 Borderline high LDL 160-189 High LDL greater than 189 mg/dl Very High Performed By: #### C BC, LIPD, TSH reflex FT4, URIC, CMP #### [facility] [address] [place], [place] [id number] Cholesterol in VLDL [Mass/Vol] 23 mg/dL Normal [facility] Specialist Comment on above: Performed By: #### C BC, LIPD, TSH reflex FT4, URIC, CMP #### [facility] [address] [place], [place] [id number] Cholesterol.total/Chol esterol in HDL [Mass ratio] 4 {ratio} Normal [facility] Specialist Comment on above: Performed By: #### C BC, LIPD, TSH reflex FT4, URIC, CMP #### [facility] [address] [place], [place] [id number] Triglyceride [Mass/Vol] 117 mg/dL Normal 30-150 [facility] Associate Entertainment Editor Comment on above: Result Comment: TRIG ATPIII CLASSIFICATIONS TRIG less than 150 mg/dl Normal TRIG 150-199 mg/dl Borderline High TRIG 200-500 mg/dl High TRIG greather than 500 mg/dl Very High Performed By: #### C BC, LIPD, TSH reflex FT4, URIC, CMP #### [facility] [address] [place], [place] [id number] TSH w/ Reflex to Free T4on 1 05-10-2020 TSH 1.330 uIU/mL Normal 0.400-4.50 0 [facility] Associate Entertainment Editor Comment on above: Performed By: #### C BC, LIPD, TSH reflex FT4, URIC, CMP #### [facility] [address] [place], [place] [id number] Uric Acidon 03-09-2021 URIC 8.1 mg/dL High 4.0-8.0 [facility] Special[facility] Comment on above: Result Comment: Refe rence range change 02/18/2017. Prior reference range F 2.4-5.7mg/dL. M 3.4-7.0 mg/dL. Performed By: #### C BC, LIPD, TSH reflex FT4, URIC, CMP #### [facility] [address] [place], [place] [id number] [facility] CARDIAC STRESS/REST INJE CTIONon 08-28-2019 [facility] CARDIAC STRESS/REST INJECTION Patient Name: TAMMY WU STUDY: MYOCARDIAL PERFUSION STRESS TEST WITH LEXISCAN Performing facility: [facility], [address] [place] [address], [address], [place] [address] [facility] Provider: Pawan Lion MD, [facility] PCP: Dr. Nico Medina Supervising provider: Norma Olson MD, [facility] INDICATION: Chest Pain; DAVID; HISTORY: Gender: M; Age: 69 y/o ; Height: 172.72 cm; Weight: 147.1255945 kg. High Cholesterol; Diabetes; Family HX CAD; HTN; Chest Pain; SOB; Fatigue; Dizziness Quit smoking 20 years ago. COMPARISON: No comparison. ACCESSION NUMBER(S): [id number]; [id number]; [id number] ORDERING CLINICIAN: COLIN LION TECHNIQUE: TWO DAY [...] comparison. Electronically signed by: NORMA OLSON MD [facility] Vital Signs Date Time Vital Sign Value Performing Clinician Facility 12-20-2024 09:40-0400 Body height 172.7 cm Leena Hemmer PA Work Phone: [facility] 12-20-2024 09:40-0400 Body mass index (BMI) [Ratio] 43.33 kg/m2 Leena Hemmer PA Work Phone: [facility] 12-20-2024 09:40-0400 Body weight 129.28 kg Leena Hemmer PA Work Phone: [facility] 12-20-2024 09:40-0400 Diastolic blood pressure 78 mm[Hg] Leena Hemmer PA Work Phone: [facility] 12-20-2024 09:40-0400 Heart rate 78 /min Leena Hemmer PA Work Phone: [facility] 12-20-2024 09:40-0400 Respiratory rate 16 /min Leena Hemmer PA Work Phone: [facility] 12-20-2024 09:40-0400 SaO2% (BldA) [Mass fraction] 95 % Leena Hemmer PA Work Phone: [facility] 12-20-2024 09:40-0400 Systolic blood pressure 122 mm[Hg] Leena Hemmer PA Work Phone: [facility] 11-19-2024 10:40-0400 Body height 172.7 cm Leena Hemmer PA Work Phone: [facility] 11-19-2024 10:40-0400 Body mass index (BMI) [Ratio] 44.7 kg/m2 Leena Hemmer PA Work Phone: [facility] 11-19-2024 10:40-0400 Body weight 133.36 kg Leena Hemmer PA Work Phone: [facility] 11-19-2024 10:40-0400 Diastolic blood pressure 72 mm[Hg] Leena Hemmer PA Work Phone: [facility] 11-19-2024 10:40-0400 Heart rate 52 /min Leena Armenta PA Work Phone: [facility] 11-19-2024 10:40-0400 SaO2% (BldA) [Mass fraction] 97 % Leena Armenta PA Work Phone: [facility] 11-19-2024 10:40-0400 Systolic blood pressure 138 mm[Hg] Leena Armenta PA Work Phone: [facility] 10-12-2024 10:18-0400 Body height 170.2 cm Ro Pendleton MD Work Phone: [facility] 10-12-2024 10:18-0400 Body mass index (BMI) [Ratio] 46.05 kg/m2 Ro Pendleton MD Work Phone: [facility] 10-12-2024 10:18-0400 Body weight 133.36 kg Ro Pendleton MD Work Phone: [facility] 10-12-2024 10:18-0400 Diastolic blood pressure 88 mm[Hg] Ro Pendleton MD Work Phone: [facility] 10-12-2024 10:18-0400 Heart rate 47 /min Ro Pendleton MD Work Phone: [facility] 10-12-2024 10:18-0400 Systolic blood pressure 138 mm[Hg] Ro Pendleton MD Work Phone: [facility] 09-17-2024 09:25-0400 Body height 172.7 cm Kojo Medina MD Work Phone: [facility] 09-17-2024 09:25-0400 Diastolic blood pressure 72 mm[Hg] Kojo Medina MD Work Phone: [facility] 09-17-2024 09:25-0400 Systolic blood pressure 138 mm[Hg] Kojo Medina MD Work Phone: [facility] 08-02-2024 10:10-0400 Body height 172.7 cm Kojo Medina MD Work Phone: [facility] 08-02-2024 10:10-0400 Body mass index (BMI) [Ratio] 45.16 kg/m2 Kojo Medina MD Work Phone: [facility] 08-02-2024 10:10-0400 Body weight 134.72 kg Kojo Medina MD Work Phone: [facility] 08-02-2024 10:10-0400 Diastolic blood pressure 74 mm[Hg] Kojo Medina MD Work Phone: [facility] 08-02-2024 10:10-0400 Heart rate 56 /min Kojo Medina MD Work Phone: [facility] 08-02-2024 10:10-0400 SaO2% (BldA) [Mass fraction] 97 % Kojo Medina MD Work Phone: [facility] 08-02-2024 10:10-0400 Systolic blood pressure 132 mm[Hg] Kojo Medina MD Work Phone: [facility] 03-22-2024 10:11-0500 Body height 172.7 cm Kojo Medina MD Work Phone: [facility] 03-22-2024 10:11-0500 Body mass index (BMI) [Ratio] 46.38 kg/m2 Kojo Medina MD Work Phone: [facility] 03-22-2024 10:11-0500 Body weight 138.35 kg Kojo Medina MD Work Phone: [facility] 03-22-2024 10:11-0500 Diastolic blood pressure 96 mm[Hg] Kojo Medina MD Work Phone: [facility] 03-22-2024 10:11-0500 Heart rate 72 /min Kojo Medina MD Work Phone: [facility] 03-22-2024 10:11-0500 SaO2% (BldA) [Mass fraction] 96 % Kojo Medina MD Work Phone: [facility] 03-22-2024 10:11-0500 Systolic blood pressure 142 mm[Hg] Kojo Medina MD Work Phone: [facility] 02-17-2024 10:53-0500 Body height 172.7 cm Kojo Medina MD Work Phone: [facility] 02-17-2024 10:53-0500 Body mass index (BMI) [Ratio] 48.2 kg/m2 Kojo Medina MD Work Phone: [facility] 02-17-2024 10:53-0500 Body weight 143.79 kg Kojo Medina MD Work Phone: [facility] 02-17-2024 10:53-0500 Diastolic blood pressure 76 mm[Hg] Kojo Medina MD Work Phone: [facility] 02-17-2024 10:53-0500 Heart rate 70 /min Kojo Medina MD Work Phone: [facility] 02-17-2024 10:53-0500 SaO2% (BldA) [Mass fraction] 96 % Kojo Medina MD Work Phone: [facility] 02-17-2024 10:53-0500 Systolic blood pressure 134 mm[Hg] Kojo Medina MD Work Phone: [facility] 02-01-2024 10:35-0400 Body height 172.7 cm Lyudmila Duncan REHABILITATION CASE COORDINATOR Work Phone: [facility] 02-01-2024 10:35-0400 Body mass index (BMI) [Ratio] 46.22 kg/m2 Lyudmila Duncan REHABILITATION CASE COORDINATOR Work Phone: [facility] 02-01-2024 10:35-0400 Body weight 137.89 kg Lyudmila Duncan REHABILITATION CASE COORDINATOR Work Phone: [facility] 02-01-2024 10:35-0400 Diastolic blood pressure 100 mm[Hg] Lyudmila Duncan REHABILITATION CASE COORDINATOR Work Phone: [facility] 02-01-2024 10:35-0400 Heart rate 64 /min Lyudmila Duncan REHABILITATION CASE COORDINATOR Work Phone: [facility] 02-01-2024 10:35-0400 SaO2% (BldA) [Mass fraction] 94 % Lyudmila [place] REHABILITATION CASE COORDINATOR Work Phone: [facility] 02-01-2024 10:35-0400 Systolic blood pressure 162 mm[Hg] Lyudmila [place] REHABILITATION CASE COORDINATOR Work Phone: [facility] 01-24-2024 10:25-0400 Body height 172.7 cm Lyudmila Anayavely REHABILITATION CASE COORDINATOR Work Phone: [facility] 01-24-2024 10:25-0400 Body mass index (BMI) [Ratio] 48.96 kg/m2 Lyudmila Anayavely REHABILITATION CASE COORDINATOR Work Phone: [facility] 01-24-2024 10:25-0400 Body temperature 97.9 [degF] Lyudmila Ronald REHABILITATION CASE COORDINATOR Work Phone: [facility] 01-24-2024 10:25-0400 Body weight 146.06 kg Lyudmila [place] REHABILITATION CASE COORDINATOR Work Phone: [facility] 01-24-2024 10:25-0400 Diastolic blood pressure 58 mm[Hg] Lyudmila Anayavely REHABILITATION CASE COORDINATOR Work Phone: [facility] 01-24-2024 10:25-0400 Heart rate 63 /min Lyudmila Ronald REHABILITATION CASE COORDINATOR Work Phone: [facility] 01-24-2024 10:25-0400 SaO2% (BldA) [Mass fraction] 91 % Lyudmila Anayavely REHABILITATION CASE COORDINATOR Work Phone: [facility] 01-24-2024 10:25-0400 Systolic blood pressure 126 mm[Hg] Lyudmila Duncan REHABILITATION CASE COORDINATOR Work Phone: [facility] 01-13-2024 10:33-0400 Diastolic blood pressure 85 mm[Hg] Ro Pendleton MD Work Phone: [facility] 01-13-2024 10:33-0400 Systolic blood pressure 160 mm[Hg] Ro Pendleton MD Work Phone: [facility] 01-13-2024 10:07-0400 Body height 170.2 cm Ro Pendleton MD Work Phone: [facility] 01-13-2024 10:07-0400 Body mass index (BMI) [Ratio] 49.09 kg/m2 Ro Pendleton MD Work Phone: [facility] 01-13-2024 10:07-0400 Body weight 142.16 kg Ro Pendleton MD Work Phone: [facility] 01-13-2024 10:07-0400 Heart rate 60 /min Ro Pendleton MD Work Phone: [facility] 12-21-2023 09:39-0400 Body height 172.7 cm Kojo Medina MD Work Phone: [facility] 12-21-2023 09:39-0400 Body mass index (BMI) [Ratio] 46.68 kg/m2 Kojo Medina MD Work Phone: [facility] 12-21-2023 09:39-0400 Body weight 139.25 kg Kojo Medina MD Work Phone: [facility] 12-21-2023 09:39-0400 Diastolic blood pressure 64 mm[Hg] Kojo Medina MD Work Phone: [facility] 12-21-2023 09:39-0400 Heart rate 90 /min Kojo Medina MD Work Phone: [facility] 12-21-2023 09:39-0400 SaO2% (BldA) [Mass fraction] 94 % Kojo Medina MD Work Phone: [facility] 12-21-2023 09:39-0400 Systolic blood pressure 130 mm[Hg] Kojo Medina MD Work Phone: [facility] 10-10-2023 10:42-0400 Body height 170.2 cm Colin Lion MD Work Phone: [facility] 10-10-2023 10:42-0400 Body mass index (BMI) [Ratio] 48.55 kg/m2 Colin Lion MD Work Phone: [facility] 10-10-2023 10:42-0400 Body weight 140.62 kg Colin Lion MD Work Phone: [facility] 10-10-2023 10:42-0400 Diastolic blood pressure 58 mm[Hg] Colin Lion MD Work Phone: [facility] 10-10-2023 10:42-0400 Heart rate 41 /min Colin Lion MD Work Phone: [facility] 10-10-2023 10:42-0400 Systolic blood pressure 156 mm[Hg] Colin Lion MD Work Phone: [facility] 03-24-2023 07:25-0500 Body temperature 97.7 [degF] Sera Mayen MD Work Phone: [facility] 03-24-2023 07:25-0500 Diastolic blood pressure 75 mm[Hg] Sera Mayen MD Work Phone: [facility] 03-24-2023 07:25-0500 Heart rate 51 /min Sera Mayen MD Work Phone: [facility] 03-24-2023 07:25-0500 Respiratory rate 18 /min Sera Mayen MD Work Phone: [facility] 03-24-2023 07:25-0500 SaO2% (BldA) [Mass fraction] 95 % Sera Mayen MD Work Phone: [facility] 03-24-2023 07:25-0500 Systolic blood pressure 149 mm[Hg] Sera Mayen MD Work Phone: [facility] 03-24-2023 05:49-0500 Body height 170.2 cm Sera Mayen MD Work Phone: [facility] 03-24-2023 05:49-0500 Body mass index (BMI) [Ratio] 46.23 kg/m2 Sera Mayen MD Work Phone: [facility] 03-24-2023 05:49-0500 Body weight 133.9 kg Sera Mayen MD Work Phone: [facility] 09-08-2022 10:06-0400 Body height 170.18 cm Kojo Medina Work Phone: [facility] [employer] [address] DO Work Phone: 09-08-2022 10:06-0400 Body mass index (BMI) [Ratio] 46.52 kg/m2 Kojo Medina Work Phone: [facility] [address] DO Work Phone: 09-08-2022 10:06-0400 Body surface area Derived from formula 2.39 m2 Kojo Medina Work Phone: [facility] [employer] 600 DO Work Phone: 09-08-2022 10:06-0400 Body weight 134.72 kg Kojo Medina Work Phone: [facility] [address] DO Work Phone: 09-08-2022 10:06-0400 Diastolic blood pressure 70 mm[Hg] Kojo Medina Work Phone: [facility] 600 DO Work Phone: 09-08-2022 10:06-0400 Heart rate 40 /min Kojo Medina Work Phone: [facility] 600 DO Work Phone: 09-08-2022 10:06-0400 Systolic blood pressure 120 mm[Hg] Kojo Medina Work Phone: [facility] 600 DO Work Phone: 07-15-2022 11:00-0400 Body height 172.72 cm [employer] Other [employer] Other 07-15-2022 11:00-0400 Body mass index (BMI) [Ratio] 45 kg/m2 [employer] Other [employer] Other 07-15-2022 11:00-0400 Body weight 134.27 kg [employer] Other [employer] Other 07-15-2022 11:00-0400 Diastolic blood pressure 86 mm[Hg] [employer] Other [employer] Other 07-15-2022 11:00-0400 Systolic blood pressure 132 mm[Hg] [facility] Other [employer] Other 06-21-2022 11:00-0400 Body height 172.72 cm [employer] Other [employer] Other 06-21-2022 11:00-0400 Body mass index (BMI) [Ratio] 45 kg/m2 [employer] Other [employer] Other 06-21-2022 11:00-0400 Body weight 134.27 kg [employer] Other [employer] Other 06-21-2022 11:00-0400 Diastolic blood pressure 68 mm[Hg] [employer] Other [employer] Other 06-21-2022 11:00-0400 Systolic blood pressure 168 mm[Hg] [facility] Other [employer] Other 03-22-2022 12:00-0500 Diastolic blood pressure 69 mm[Hg] EUGENIA Medina Work Phone: [facility] 03-22-2022 12:00-0500 Heart rate 57 /min II Kojo Medina Work Phone: [facility] 03-22-2022 12:00-0500 Respiratory rate 18 /min II Kojo Medina Work Phone: [facility] 03-22-2022 12:00-0500 SaO2% (BldA) [Mass fraction] 94 % II Kojo Medina Work Phone: [facility] 03-22-2022 12:00-0500 Systolic blood pressure 126 mm[Hg] II Kojo Medina Work Phone: [facility] 03-22-2022 08:00-0500 Body temperature 97.6 [degF] II Kojo Medina Work Phone: [facility] 03-22-2022 06:00-0500 Body weight 137.4 kg II Kojo Medina Work Phone: [facility] 03-21-2022 20:19-0500 Body height 170.18 cm II Kojo Medina Work Phone: [facility] 03-21-2022 18:26-0500 Diastolic blood pressure 84 mm[Hg] II Kojo Medina Work Phone: [facility] 03-21-2022 18:26-0500 Heart rate 81 /min II Kojo Medina Work Phone: [facility] 03-21-2022 18:26-0500 Respiratory rate 18 /min II Kojo Medina Work Phone: [facility] 03-21-2022 18:26-0500 SaO2% (BldA) [Mass fraction] 95 % II Kojo Medina Work Phone: [facility] 03-21-2022 18:26-0500 Systolic blood pressure 190 mm[Hg] II Kojo Medina Work Phone: [facility] 03-21-2022 11:45-0500 Body height 170.18 cm II Kojo Medina Work Phone: [facility] 03-21-2022 11:45-0500 Body weight 140 kg II Kojo Medina Work Phone: [facility] 03-21-2022 11:42-0500 Body temperature 98.1 [degF] II Kojo Medina Work Phone: [facility] 03-17-2022 16:57-0500 Body height 170.18 cm Colin Lion MD Work Phone: [facility] 250 DO Work Phone: 03-17-2022 16:57-0500 Body mass index (BMI) [Ratio] 48.55 kg/m2 Colin Lion MD Work Phone: [facility] 250 DO Work Phone: 03-17-2022 16:57-0500 Body surface area Derived from formula 2.44 m2 Colin Lion MD Work Phone: [facility] 250 DO Work Phone: 03-17-2022 16:57-0500 Body weight 140.62 kg Colin Lion MD Work Phone: [facility] 250 DO Work Phone: 03-17-2022 16:57-0500 Diastolic blood pressure 60 mm[Hg] Colin Lion MD Work Phone: [facility] 250 DO Work Phone: 03-17-2022 16:57-0500 Heart rate 60 /min Colin Lion MD Work Phone: [facility] 250 DO Work Phone: 03-17-2022 16:57-0500 Systolic blood pressure 138 mm[Hg] Colin Lion MD Work Phone: [facility] [address] DO Work Phone: 03-17-2022 14:37-0500 Body height 170.18 cm Colin Lion MD Work Phone: [facility] 250 DO Work Phone: 03-17-2022 14:37-0500 Body mass index (BMI) [Ratio] 48.55 kg/m2 Colin Lion MD Work Phone: [facility] DO Work Phone: 03-17-2022 14:37-0500 Body surface area Derived from formula 2.44 m2 Colin Lion MD Work Phone: [facility] 250 DO Work Phone: 03-17-2022 14:37-0500 Body weight 140.62 kg Colin Lion MD Work Phone: [facility] DO Work Phone: 03-17-2022 14:37-0500 Diastolic blood pressure 68 mm[Hg] Colin Lion MD Work Phone: [facility] 250 DO Work Phone: 03-17-2022 14:37-0500 Heart rate 60 /min Colin Lion MD Work Phone: [facility] 250 DO Work Phone: 03-17-2022 14:37-0500 Systolic blood pressure 148 mm[Hg] Colin Lion MD Work Phone: [facility] DO Work Phone: 07-10-2021 11:09-0400 Blood Pressure Location Rajeev IBRAHIM [facility] 07-10-2021 11:09-0400 Diastolic blood pressure 70 mm[Hg] Raj[facility]ev [facility]RAHIM [facility] 07-10-2021 11:09-0400 Heart rate 88 /min Rajeev PATRICE [facility] 07-10-2021 11:09-0400 Respiratory rate 16 /min Rajeev PATRICE [facility] 07-10-2021 11:09-0400 Systolic blood pressure 120 mm[Hg] Rajeev PATRICE [facility] Encounters Encounter Date Encounter Type Care Provider Facility Start: 02-18-2025 ambulatory Rajeev Bostoni ty:[facility] [place] Start: 12-20-2024 End: 12-20-2024 Bamboo flowsheet Leena Armenta PA Work Phone: [facility] Start: 12-20-2024 End: 12-20-2024 Bamboo flowsheet Leena Armenta PA Work Phone: [facility] Start: 12-20-2024 End: 12-20-2024 Office outpatient visit 15 minutes Leena MAGALLANES Work Phone: [facility] Comment on above: Benign essential hyp ertension (Primary Dx); Type 2 diabetes mellitus with other specified complication, with long-term current use of insulin (HCC); Morbidly obese (CMS-HCC); Microalbuminuria Start: 12-20-2024 End: 12-20-2024 ambulatory LEENA ARMENTA Not Available Start: 12-07-2024 End: 12-07-2024 Clinisync Result Encounter Generic External Data Provider [facility] External Department Unsolicited Start: 12-07-2024 End: 12-07-2024 Clinisync Result Encounter Generic External Data Provider [facility] External Department Unsolicited Start: 11-19-2024 End: 11-19-2024 Bamboo flowsheet Leena Armenta PA Work Phone: [facility] [facility] Start: 11-19-2024 End: 11-19-2024 Bamboo flowsheet Leena Armenta PA Work Phone: [facility] [facility] Start: 11-19-2024 End: 11-19-2024 Office outpatient visit 25 minutes Leena Armenta PA Work Phone: [facility] [facility] Comment on above: Benign essential hyp ertension (Primary Dx); Type 2 diabetes mellitus with other specified complication, with long-term current use of insulin (HCC); Morbidly obese (CMS-HCC); BMI 40.0-44.9, adult ([facility]) Start: 11-19-2024 End: 11-19-2024 ambulatory LEENA ARMENTA Not Available Start: 11-14-2024 End: 11-14-2024 ambulatory Rajeev IBRAHIM Facility:[facility] Start: 11-14-2024 End: 11-14-2024 Patient encounter procedure Rajeev IBRAHIM [facility] Start: 10-12-2024 End: 10-12-2024 Office outpatient visit 25 minutes Ro Pendleton MD Work Phone: [facility] Comment on above: Essential (primary) hypertension (Primary Dx); White coat syndrome with hypertension; Sinus bradycardia; Junctional rhythm; Mixed hyperlipidemia; BMI 45.0-49.9, adult (Multi); Former smoker Start: 10-12-2024 End: 10-12-2024 ambulatory [facility] Ambulatory Start: 09-17-2024 End: 09-17-2024 Bamboo [...] Morbid (severe) obesity due to excess calories (CMS/HCC); Body mass index (BMI) 45.0-49.9, adult (CMS/HCC) Start: 08-02-2024 End: 08-02-2024 ambulatory KOJO MEDINA Not Available Start: 07-17-2024 End: 07-17-2024 Bamboo flowsheet Panda Vasquez PA Work Phone: [facility] Start: 07-17-2024 End: 07-17-2024 Bamboo flowsheet Panda Vasquez PA Work Phone: [facility] Start: 07-17-2024 End: 07-17-2024 Office outpatient new 30 minutes Panda Wairamona PA Work Phone: [facility] Comment on above: Solares angioma (Prim natalie Dx); Actinic keratosis; Seborrheic keratosis; Melanocytic nevus of trunk; Lentigo simplex Start: 07-17-2024 End: 07-17-2024 ambulatory PANDABridget VASQUEZArielle Not Available Start: 03-22-2024 End: 03-22-2024 Bamboo [...] complication, with long-term current use of insulin ([facility]); Type 2 diabetes mellitus with hyperglycemia ([facility]); 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[facility]) Start: 02-17-2024 End: 02-17-2024 ambulatory KOJO MEDINA Not Available Start: 02-01-2024 End: 02-01-2024 Bamboo flowsheet Lyudmila Duncan REHABILITATION CASE COORDINATOR Work Phone: [facility] Start: 02-01-2024 End: 02-01-2024 Bamboo flowsheet Lyudmila Duncan REHABILITATION CASE COORDINATOR Work Phone: [facility] Start: 02-01-2024 End: 02-01-2024 Office outpatient visit 25 minutes Lyudmila Duncan REHABILITATION CASE COORDINATOR Work Phone: [facility] Comment on above: Type 2 diabetes carina itus without complication, with long-term current use of insulin ([facility]) (Primary Dx); Benign essential hypertension ([facility]); Prostate cancer screening; Fatty liver; BPH with urinary obstruction; Mixed hyperlipidemia ([facility]); Body mass index (BMI) 45.0-49.9, adult ([facility]); Screening for thyroid disorder; Elevated brain natriuretic peptide (BNP) level Start: 02-01-2024 End: 02-01-2024 ambulatory LYUDMILA DUNCAN Not Available Start: 01-25-2024 End: 01-25-2024 Orders Only Lyudmila Duncan REHABILITATION CASE COORDINATOR Work Phone: [facility] Comment on above: Elevated brain natri uretic peptide (BNP) level (Primary Dx) Start: 01-24-2024 End: 01-24-2024 Bamboo flowsheet Lyudmila Duncan REHABILITATION CASE COORDINATOR Work Phone: [facility] Start: 01-24-2024 End: 01-24-2024 Bamboo flowsheet Lyudmila Duncan REHABILITATION CASE COORDINATOR Work Phone: [facility] Start: 01-24-2024 End: 01-24-2024 Office outpatient visit 25 minutes Lyudmila Duncan REHABILITATION CASE COORDINATOR Work Phone: [facility] Comment on above: Shortness of breath (Primary Dx); Wheezing; First degree atrioventricular block; Pulse irregularity; Acute non-recurrent pansinusitis; Insomnia, unspecified type Start: 01-24-2024 End: 01-24-2024 ambulatory LYUDMILA DUNCAN Not Available Start: 01-13-2024 End: 01-13-2024 Office outpatient visit 25 minutes Ro Pendleton MD Work Phone: [facility] Comment on above: Benign essential hyp ertension (Primary Dx); Mixed hyperlipidemia; BMI 45.0-49.9, adult (Multi); Sinus bradycardia; Former smoker; White coat syndrome with hypertension Start: 01-13-2024 End: 01-13-2024 ambulatory [facility] Start: 12-21-2023 End: 12-21-2023 Bamboo [...] complication, with long-term current use of insulin ([facility]) (Primary Dx); Mixed hyperlipidemia ([facility]); Upper respiratory tract infection, unspecified type; Type 2 diabetes mellitus with hyperglycemia ([facility]); 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[facility]) Start: 10-10-2023 End: 10-10-2023 Office outpatient visit 25 minutes Colin Lion MD Work Phone: [facility] Comment on above: Mixed hyperlipidemia (Primary Dx); Benign essential hypertension; Bradycardia Start: 08-02-2023 End: 08-03-2023 Pre-admission assessment TAMMY MEDINA [facility] Start: 07-22-2023 End: 07-22-2023 Patient encounter procedure Rajeev IBRAHIM [facility] Start: 03-24-2023 End: 03-24-2023 ambulatory [facility] Start: 03-24-2023 End: 03-24-2023 Subsequent hospital visit by physician Sera Mayen MD Work Phone: [facility] [place] Comment on above: Carpal tunnel syndro me, right upper limb (Primary Dx) Start: 03-21-2023 End: 03-22-2023 ambulatory [facility] Start: 03-21-2023 End: 03-21-2023 Office outpatient new 45 minutes Sera Mayen MD Work Phone: [facility] Comment on above: Carpal tunnel syndro me of right wrist (Primary Dx) Start: 09-08-2022 Office outpatient vi sit 15 minutes Kojo Medina Work Phone: [facility] 600 DO Work Phone: Start: 09-08-[address] Kojo Medina II Facility: Start: 08-24-2022 ambulatory NARENDRANATH LAKSHMIPATHY . Facility:[facility] Start: 08-14-2022 End: 08-15-[address] KOJO MEDINA Facility:[facility] Start: 08-12-2022 End: 08-13-2022 ambulatory NARENDRANATH LAKSHMIPATHY . Facility:[facility] Start: 07-20-2022 End: 07-20-2022 ambulatory NARENDRANATH LAKSHMIPATHY . Facility:[facility] Start: 07-15-2022 End: 07-15-2022 ambulatory Karime aCraballo Other [facility] [employer] Other Start: 07-15-2022 Office outpatient vi sit 15 minutes Karime Caraballo [facility] Start: 07-08-2022 End: 07-09-2022 ambulatory NARENDRANATH LAKSHMIPATHY . Facility:[facility] Start: 07-02-2022 End: 07-03-[address] TAMMY DANIELLE Facility:[facility] Start: 06-21-2022 End: 06-21-2022 ambulatory Karime Rashmi Other [facility] [employer] Other Start: 06-21-2022 Office outpatient ne w 45 minutes Karime Caraballo [facility] Start: 06-15-2022 End: 06-16-2022 ambulatory JOYA MCRAE Facility:[facility] Start: 05-04-2022 End: 05-05-[address] AGUILAR SWEENEY . Facility:[facility] Start: 04-30-2022 End: 05-01-[address] KOJO MEDINA Facility:[facility] Start: 03-22-[address] Kojo Medina II Facility:[id number] Start: 03-21-2022 End: 03-22-2022 ambulatory Jakub Juliana [facility] Start: 03-21-2022 End: 03-22-2022 Evaluation and management of inpatient II Kojo Medina Work Phone: [facility] [place] [facility] Start: 03-21-2022 End: 03-22-2022 observation encounter II Kojo Medina Work Phone: [facility] Work Phone: Start: 03-17-2022 Office outpatient vi sit 25 minutes Colin Lion MD Work Phone: [facility] 250 DO Work Phone: Start: 03-17-[address] Kojo Medina II Facility: Start: 10-19-2021 End: 10-20-[address] KOJO MEDINA Facility:[facility] Start: 07-10-2021 End: 07-10-2021 Patient encounter procedure Rajeev IBRAHIM [facility] Procedures Date Procedure Procedure Detail Performing Clinician Start: 12-07-2024 XR LUMBAR SPINE 6V W BENDING Generic External Data Provider Start: 12-07-2024 XR SACROILIAC JOINT Gen gurjit External Data Provider Start: 11-19-2024 Hemoglobin glycosylated a1c Leena MAGALLANES Work Phone: Start: 10-12-2024 Ecg routine ecg w/le ast 12 lds w/i&r Ro Pendleton MD Work Phone: Start: 09-17-2024 Hemoglobin glycosylated a1c Kojo Medina MD Work Phone: Start: 08-02-2024 Hemoglobin glycosylated a1c Kojo Medina MD Work Phone: Start: 07-17-2024 CRYOTHERAPY SKIN LESION Panda Vasquez ELPIDIO Work Phone: Start: 03-22-2024 Hemoglobin glycosylated a1c Kojo Medina MD Work Phone: Start: 02-17-2024 Hemoglobin glycosylated a1c Kojo Medina MD Work Phone: Start: 01-13-2024 Ecg routine ecg w/le ast 12 lds w/i&r Ro Pendleton MD Work Phone: Start: 12-21-2023 Hemoglobin glycosylated [...] 10-07-2015 Cystoscopy Rajeev SANABRIA Start: 07-29-2014 Colonoscopy Colin Stewart MD Work Phone: Start: 09-18-2012 Cystoscopy Rajeev SANABRIA Start: 08-07-2010 Cystoscopy Rajeev SANABRIA Start: 09-02-2002 Transrectal biopsy o f prostate using ultrasound guidance Rajeev IBRAHIM Achillotomy Colin Lion MD Work Phone: Arthroplasty of knee Colin Lion MD Work Phone: Colonoscopy Colin Lion MD Work Phone: Comment on above: [id number]; History of hernia repair Megan IBRAHIM Operation on lens Rajeev SANABRIA Repair of musculoten dinous cuff of shoulder Colin Lion MD Work Phone: Surgical procedure on thorax Colin Lion MD Work Phone: Total replacement of hip Jose Lion MD Work Phone: Total replacement of right hip joint Rajeev IBRAHIM Plan of Treatment Date Care Activity Detail Author Start: 01-16-2026 Glaucoma screening Diabetes: Retinopathy Screening [facility] Start: 12-20-2025 Screening for malignant neoplasm of colon Colorectal Cancer Screening [facility] Comment on above: Postponed from 1950 (Patient Refus ed) Start: 11-19-2025 Urine screening for protein Diabetes: Urine Protein Screening [facility] Start: 09-17-2025 Medicare Annual Wellness (AWV) Medicare Annual Wellness (AWV) [facility] Start: 08-09-2025 End: 08-09-2025 Patient encounter procedure 08/09/2025 10:50 AM EDT Office Visit [facility] [address] [facility] [address] [place] [address] Ro Pendleton MD [address] [facility] [place] [address] [facility] Start: 07-17-2025 End: 07-17-2025 [facility] Start: 02-19-2025 Hemoglobin A1c measurement Diabetes: Hemoglobin A1C [facility] Start: 02-17-2025 Medicare Annual Wellness Visit Medicare Annual Wellness Visit (AWV) [facility] Start: 02-16-2025 Medicare Annual Wellness (AWV) Medicare Annual Wellness (AWV) [facility] Start: 01-31-2025 Urine screening for protein Diabetes: Urine Protein Screening [facility] Start: 01-22-2025 End: 01-22-2025 Patient encounter procedure 01/22/2025 10:30 AM EDT Office Visit [facility] [address] [place] [address] Leena Armenta PA [address] [place] [address] [facility] Start: 01-12-2025 End: 10-12-2025 Alanine aminotransferase [Enzymatic activity/volume] in Serum or Plasma by With P-5'-P Alanine Aminotransferase Lab Routine Mixed hyperlipidemia Expected: 01/12/2025, Expires: 10/12/2025 [facility] Work Phone: Comment on above: Expected: [...] Routine Mixed hyperlipidemia Expected: 01/12/2025, Expires: 10/12/2025 [facility] Work Phone: Comment on above: Expected: 01/12/2025, Expires: Start: 12-20-2024 End: 12-20-2024 Patient encounter procedure [facility] Comment on above: Arrived Start: 12-18-2024 Hemoglobin A1c measurement Diabetes: Hemoglobin A1C [facility] Start: 12-16-2024 Glaucoma screening Diabetes: Retinopathy Screening [facility] Start: 12-03-2024 Influenza vaccination [facility] Start: 11-19-2024 End: 11-19-2024 Patient encounter procedure [facility] Comment on above: Arrived Start: 11-02-2024 Hemoglobin A1c measurement Diabetes: Hemoglobin A1C [facility] Start: 10-12-2024 End: 10-12-2024 Patient encounter procedure 10/12/2024 10:20 AM EDT Office Visit [facility] [address] [facility] [address] [place] [phone] Ro Pendleton MD [address] [facility] [address] [place] [address] [facility] Start: 09-17-2024 End: 09-17-2024 Patient encounter procedure [facility] Comment on above: Arrived Start: 08-02-2024 End: 08-02-2025 Noninvasive colorectal cancer DNA and occult blood screening [Presence] in Stool Cologuard colon cancer screening Lab Routine Encounter for screening for malignant neoplasm of colon Expected: 08/02/2024 (Approximate), Expires: 08/02/2025 [facility] Work Phone: Comment on above: Expected: 08/02/2024 (Approximate), Expi res: 08/02/2025 Start: 08-02-2024 End: 08-02-2024 Patient encounter procedure [facility] Comment on above: Arrived Start: 07-29-2024 Screening for malignant neoplasm of colon [facility] Start: 07-24-2024 Urine screening for protein Diabetes: Urine Protein Screening [facility] Start: 07-17-2024 End: 07-17-2024 Patient encounter procedure [facility] Comment on above: Arrived Start: 06-20-2024 Hemoglobin A1c measurement Diabetes: Hemoglobin A1C [facility] Start: 05-19-2024 Hemoglobin A1c measurement Diabetes: Hemoglobin A1C [facility] Start: 03-22-2024 End: 03-22-2024 Patient encounter procedure [facility] Comment on above: Arrived Start: 03-21-2024 Hemoglobin A1c measurement Diabetes: Hemoglobin A1C [facility] Start: 02-22-2024 End: 02-22-2024 Patient encounter procedure [facility] Start: 02-01-2024 End: 01-31-2025 CBC panel - Blood by Automated count CBC Lab Routine Type 2 diabetes mellitus without complication, with long-term current use of insulin (CMS/HCC) Benign essential hypertension (CMS/HCC) Expected: 02/01/2024 (Approximate), Expires: 01/31/2025 [facility] Comment on above: Expected: 02/01/2024 (Approximate), Expi res: 01/31/2025 Start: 02-01-2024 End: 01-31-2025 Comprehensive metabolic 2000 panel - Serum or Plasma Comprehensive metabolic panel Lab Routine Type 2 diabetes mellitus without complication, with long-term current use of insulin (CMS/HCC) Benign essential hypertension (CMS/HCC) BPH with urinary obstruction Expected: 02/01/2024 (Approximate), Expires: 01/31/2025 [facility] Work Phone: Comment on above: Expected: 02/01/2024 (Approximate), Expi res: 01/31/2025 Start: 02-01-2024 End: 01-31-2025 Lipid 1996 panel - Serum or Plasma Lipid panel Lab Routine Mixed hyperlipidemia (CMS/HCC) Expected: 02/01/2024 (Approximate), Expires: 01/31/2025 [facility] Comment on above: Expected: 02/01/2024 (Approximate), Expi res: 01/31/2025 Start: 02-01-2024 End: 01-31-2025 Prostate specific Ag [Mass/volume] in Serum or Plasma PSA Lab Routine Prostate cancer screening Expected: 02/01/2024 (Approximate), Expires: 01/31/2025 [facility] Comment on above: Expected: 02/01/2024 (Approximate), Expi res: 01/31/2025 Start: 02-01-2024 End: 01-31-2025 TSH W/REFLEX TO FT4 TSH W/REFLEX TO FT4 Lab Routine Body mass index (BMI) 45.0-49.9, adult ([facility]) Screening for thyroid disorder Expected: 02/01/2024 (Approximate), Expires: 01/31/2025 [facility] Comment on above: Expected: 02/01/2024 (Approximate), Expi res: 01/31/2025 Start: 02-01-2024 End: 02-01-2024 Patient encounter procedure 02/01/2024 10:30 AM EDT Office Visit [facility] [address] [place] [address] Lyudmila Duncan NP [address] [place] [address] Arrived [facility] Comment on above: Arrived Start: 01-24-2024 End: 01-23-2025 Natriuretic peptide B [Mass/volume] in Blood B-type natriuretic peptide Lab Routine Shortness of breath Wheezing First degree atrioventricular block Pulse irregularity Expected: 01/24/2024 (Approximate), Expires: 01/23/2025 [facility] Comment on above: Expected: 01/24/2024 (Approximate), Expi res: 01/23/2025 Start: 01-24-2024 End: 01-23-2025 XR Chest 2 Views XR chest 2 views Imaging Routine Shortness of breath Wheezing Expected: 01/24/2024, Expires: 01/23/2025 [facility] Work Phone: Comment on above: Expected: 01/24/2024, Expires: Start: 01-24-2024 End: 01-24-2024 Patient encounter procedure 01/24/2024 10:30 AM EDT Office Visit [facility] [address] [place] [address] Lyudmila Duncan NP [address] [place] [address] Arrived [facility] Comment on above: Arrived Start: 01-21-2024 Medicare Annual Wellness (AWV) Medicare Annual Wellness (AWV) [facility] Start: 01-19-2024 Hemoglobin A1c measurement Diabetes: Hemoglobin A1C [facility] Start: 01-13-2024 End: 01-13-2024 Patient encounter procedure 01/13/2024 10:10 AM EDT Office Visit [facility] [address] [facility] [address] [place] [phone] Ro Pendleton MD [address] [facility] [address] [place] [address] [facility] Start: 12-21-2023 End: 12-21-2023 Patient encounter procedure 12/21/2023 9:45 AM EDT Office Visit [facility] [address] [facility] [address] [place] [phone] Kojo Medina MD [address] [facility] [address] [place] [address] Arrived [facility] Comment on above: Arrived Start: 12-04-2023 COVID-19 Vaccine ( season) COVID-19 Vaccine () [facility] Start: 12-04-2023 COVID-19 Vaccine ( season) COVID-19 Vaccine ( season) [facility] Start: 12-04-2023 Influenza vaccination Influenza Vaccine (#1) [facility] Start: 09-07-2023 FUV, Provider: Colin Lion, Status: Pen, Time: 9:50 AM FUV, Provider: Colin Lion, Status: Pen, Time: 9:50 AM [facility] 600 DO Work Phone: Start: 09-07-2023 End: 09-07-2023 Patient encounter procedure 09/07/2023 9:50 AM EDT Office [place] [address] [facility] [address] [place] [phone] Colin Lion MD [address] [facility] [address] [place] [address] [facility] Start: 05-21-2023 COVID-19 Vaccine () COVID-19 Vaccine () [facility] Start: 04-08-2023 End: 04-08-2023 Patient encounter procedure 04/08/2023 11:15 AM EST Office Visit [facility] [address] [place] [address] Sera Oswald MD [address] [facility] [place], [place] [id number] [facility] Start: 03-15-2023 COVID-19 Vaccine (4 - Moderna series) COVID-19 Vaccine (4 - Moderna series) [facility] Start: 12-15-2022 Glaucoma screening Diabetes: Retinopathy Screening [facility] Start: 09-08-2022 FUV, Provider: Colin Lion, Status: Pen, Time: 9:50 AM FUV, Provider: Colin Lion, Status: Pen, Time: 9:50 AM [facility] 250 DO Work Phone: Start: 04-07-2022 NURSEVST, Provider: DEREK GATES MATERIALS AND PROCESSES MANAGER 1,[id number], Status: Pen, Time: 1:30 PM NURSEVST, Provider: DEREK GATES MATERIALS AND PROCESSES MANAGER 1,[id number], Status: Pen, Time: 1:30 PM [facility] 250 DO Work Phone: Start: 03-22-2022 [facility] Start: 03-21-2022 Referral to towel distributor [facility] Start: 03-21-2022 Hospital admission [facility] Start: 2015 Abdominal aortic aneurysm screening Abdominal Aortic Aneurysm (AAA) Screening [facility] Start: 2010 Hepatitis B Vaccines (1 of 3 - Risk 3-dose series) Hepatitis B Vaccines (1 of 3 - Risk 3-dose series) [facility] Start: 2010 RSV High Risk: (Elderly (60+) or Population) (1 - Risk 60-74 years 1-dose series) RSV High Risk: (Elderly (60+) or Population) (1 - Risk 60-74 years 1-dose series) [facility] Start: 2010 RSV patients and/or patients aged 60+ years (1 - 1-dose 60+ series) RSV patients and/or patients aged 60+ years (1 - 1-dose 60+ series) [facility] Start: 1972 DTaP/Tdap/Td Vaccines (1 - Tdap) DTaP/Tdap/Td Vaccines (1 - Tdap) [facility] Start: 1969 Hepatitis A Vaccines (1 of 2 - Risk 2-dose series) Hepatitis A Vaccines (1 of 2 - Risk 2-dose series) [facility] Start: 1968 Hepatitis C screening Hepatitis C Screening [facility] Start: 1960 Diabetic foot examination Diabetes: Foot Exam [facility] Start: 1960 Glaucoma screening Diabetes: Retinopathy Screening [facility] Start: 1950 Hemoglobin A1c measurement Diabetes: Hemoglobin A1C [facility] Start: 1950 Lipid panel Lipid Panel [facility] Start: 1950 Medicare Annual Wellness Visit Medicare Annual Wellness Visit (AWV) [facility] Start: 1950 Screening for malignant neoplasm of colon [facility] Microalbumin/Creatin ine panel in random Urine Microalbumin / creatinine urine ratio Lab Routine Type 2 diabetes mellitus with other specified complication, with long-term current use of insulin (HCC) Ordered: 11/19/2024 [facility] Work Phone: Comment on above: Ordered: 11/19/2024 Patient referral [facility] Work Phone: Immunizations Immunization Date Immunization Notes Care Provider Fa cility 02-04-2023 influenza virus vaccine, unspecified formulation Colin Lion MD Work Phone: [facility] Work Phone: 01-18-2023 influenza, seasonal, injectable Kojo Medina MD Work Phone: [facility] 01-18-2023 Influenza, Seasonal, Quadrivalent, Adjuvanted Colin Lion MD Work Phone: [facility] Work Phone: 01-18-2023 Pfizer COVID-19 vaccine, Fall 2022, 12 years and older, (30mcg/0.3mL) Colin Lion MD Work Phone: [facility] Work Phone: 01-18-2023 influenza virus vaccine, unspecified formulation Kojo Medina MD Work Phone: [facility] 01-23-2022 influenza, high dose seasonal, preservative-free Colin Lion MD Work Phone: [facility] Work Phone: 01-22-2022 Fluad Quadrivalent 0 .5 ML Intramuscular Prefilled Syringe Colin Lion MD Work Phone: [facility] 250 DO Work Phone: 01-22-2022 influenza virus vaccine, unspecified formulation Rajeev IBRAHIM [facility] 12-21-2021 zoster vaccine recombinant Colin Lion MD Work Phone: [facility] 250 DO Work Phone: 03-12-2021 Fluad Quadrivalent 0 .5 ML Intramuscular Prefilled Syringe Colin Lion MD Work Phone: [facility] 250 DO Work Phone: 03-12-2021 influenza virus vaccine, unspecified formulation Rajeev IBRAHIM [facility] 02-09-2021 Moderna COVID-19 Vaccine 100 MCG/0.5ML Intramuscular Suspension Colin Lion MD Work Phone: [facility] 02-02-2021 SARS-CoV-2 (COVID-19 ) Ad26 vaccine, recombinant Rajeev IBRAHIM [facility] 12-02-2020 zoster vaccine recombinant Colin Lion MD Work Phone: [place] [address] DO Work Phone: 06-26-2020 Moderna COVID-19 Vaccine 100 MCG/0.5ML Intramuscular Suspension Colin Lion MD Work Phone: [facility] 06-02-2020 SARS-CoV-2 (COVID-19 ) Ad26 vaccine, recombinant Rajeev IBRAHIM [facility] 05-29-2020 Moderna COVID-19 Vaccine 100 MCG/0.5ML Intramuscular Suspension Colin Lion MD Work Phone: [facility] 05-05-2020 SARS-CoV-2 (COVID-19 ) Ad26 vaccine, recombinant Rajeev IBRAHIM [facility] 01-03-2020 influenza virus vaccine, unspecified formulation Colin Lion MD Work Phone: [place] [address] DO Work Phone: 01-03-2020 influenza, seasonal, injectable Colin Lion MD Work Phone: [facility] Work Phone: 02-19-2019 influenza virus vaccine, unspecified formulation Rajeev IBRAHIM [facility] 02-19-2019 influenza, high dose seasonal, preservative-free Colin Lion MD Work Phone: [place] [address] DO Work Phone: 01-02-2019 influenza virus vaccine, unspecified formulation Colin Lion MD Work Phone: [facility] 01-02-2019 influenza, injectabl e, quadrivalent, preservative free Colin Lion MD Work Phone: [facility] Work Phone: 01-02-2019 influenza, seasonal, injectable Ro Pendleton MD Work Phone: [facility] Work Phone: 01-25-2018 Flu vaccine, quadrivalent, high-dose, preservative free, age 65y+ (FLUZONE) Colin Lion MD Work Phone: [facility] Work Phone: 01-25-2018 influenza virus vaccine, unspecified formulation Rajeev IBRAHIM [facility] 01-25-2018 influenza, high dose seasonal, preservative-free Colin Lion MD Work Phone: [facility] 03-29-2017 influenza virus vaccine, unspecified formulation Rajeev IBRAHIM [facility] 03-29-2017 seasonal influenza, intradermal, preservative free Colin Lion MD Work Phone: [facility] 04-04-2016 pneumococcal conjuga te vaccine, 13 valent Colin Lion MD Work Phone: [place] [address] DO Work Phone: 01-27-2016 influenza virus vaccine, unspecified formulation Rajeev IBRAHIM [facility] 01-27-2016 influenza, injectabl e, quadrivalent, contains preservative Colin Lion MD Work Phone: [facility] 250 DO Work Phone: 01-27-2016 influenza, injectabl e, quadrivalent, preservative free Colin Lion MD Work Phone: [facility] Work Phone: 01-07-2016 pneumococcal polysaccharide vaccine, 23 valsherri Lion MD Work Phone: [facility] Work Phone: 07-29-2015 pneumococcal polysaccharide vaccine, 23 valsherri Lion MD Work Phone: [facility] Work Phone: 04-18-2013 seasonal influenza, intradermal, preservative free Colin Lion MD Work Phone: [facility] Work Phone: Payers Date Payer Category Payer Self-pay 2021 Medicaid [employer] MEDICARE A DVANTAGE [id number] 2021 Medicare [id number] 2021 Medicare (Managed Care) [employer] [facility] MEDIC[facility] [id number] 1959 Private Health Insurance [id number] 1950 Unknown [id number] 2.16.840.1.467462.3.579.2. 593 1950 Unknown [id number] 2.16.840.1.185738.3.579.2. 593 1950 Unknown [id number] 2.16.840.1.055198.3.579.2. 593 1950 Unknown [id number] 2.16.840.1.751017.3.579.2. 593 1950 Unknown [id number] 2.16.840.1.813339.3.579.2. 593 1950 Unknown [id number] 2.16.840.1.657426.3.579.2. 593 1950 Unknown [id number] 2.16.840.1.202393.3.579.2. 593 1950 Unknown [id number] 2.16.840.1.037368.3.579.2. 593 1950 Unknown [id number] 2.16.840.1.260492.3.579.2. 593 1950 Unknown [id number] 2.16.840.1.621393.3.579.2. 593 1950 Unknown [id number] 2.16.840.1.730794.3.579.2. 593 1950 Unknown [id number] 2.16.840.1.970396.3.579.2. 356 1950 Unknown [id number] 2.16.840.1.026172.3.579.2. 356 1950 Unknown [id number] 2.16.840.1.201653.3.579.2. 356 1950 Unknown [id number] 2.16.840.1.051278.3.579.2. 1246 1950 Unknown [id number] 2.16.840.1.347932.3.579.2. 1246 1950 Unknown [id number] 2.16.840.1.880830.3.579.2. 1244 1950 Unknown [id number] 2.16.840.1.901909.3.579.2. 1244 1950 Unknown [id number] 2.16.840.1.233296.3.579.2. 727 1950 Unknown [id number] 2.16.840.1.287103.3.579.2. 727 1950 Unknown [id number] 2.16.840.1.034064.3.579.2. 1259 1950 Unknown [id number] 2.16.840.1.421856.3.579.2. 1259 1950 Unknown [id number] 2.16.840.1.018416.3.579.2. 1259 1950 Unknown [id number] 2.16.840.1.758642.3.579.2. 1259 1950 Unknown [id number] 2.16.840.1.227795.3.579.2. 1259 1950 Unknown [id number] 2.16.840.1.990304.3.579.2. 1259 1950 Unknown [id number] 2.16.840.1.684640.3.579.2. 1259 1950 Unknown [id number] 2.16.840.1.579976.3.579.2. 1259 1950 Unknown [id number] 2.16.840.1.865814.3.579.2. 1259 Unknown [employer] Unknown [facility] [id number] Unknown [id number] 2.16.840.1.172832.3.579.2. 531 Social History Date Type Detail Facility Start: 07-10-2021 End: 11-19-2024 Tobacco smoking status Ex-smoker (finding) [facility] Tobacco smoking status Never [facility] Start: 03-24-2023 End: 12-14-2023 Sex Assigned At Male [facility] Start: 03-22-2023 End: 12-14-2023 Daily caffeine consumption, 1 serving a day Daily caffeine consumption, [address] [facility] Comment on above: 2-3 drinks a month; quit smoking 20+year s ago; Start: 1950 [address] At Male [facility] Tobacco smoking stat [facility] Tobacco smoking consumption unknown [facility] Work Phone: Start: 1950 Sex Assigned At Not on file [facility] Work Phone: Start: 03-11-2023 End: 10-10-2023 Exposure to SARS-CoV-2 (event) Not sure [facility] Start: 04-04-1964 End: 04-04-1999 History of tobacco use Current smoker [facility] Work Phone: Start: 04-04-1964 End: 04-04-1999 History of tobacco use Cigarette Smoker [facility] Work Phone: Start: 03-22-2023 End: 10-10-2023 Tobacco use and exposure Smokeless tobacco non-user [facility] Work Phone: Start: 03-24-2023 End: 12-20-2024 Alcohol intake Current drinker of alcohol (finding) [facility] Work Phone: Within the last year , have you been afraid of your partner or ex-partner? No [facility] Do you belong to any clubs or organizations such as religion groups, unions, fraternal [...] Not at all [facility] (I/We) worried whejaneth er (my/our) food would run out before [...] End: 11-19-2024 Alcoholic beverage intake Ex-drinker (finding) [facility] How often do you nee d to have someone help you when you read instructions, pamphlets, or other written material from your doctor or pharmacy [SILS] Never [facility] Start: 10-12-2024 Alcohol Comment 1 beer a month [facility] Work Phone: Sexual Orientation [facility] [place] Start: 08-09-2017 Sex Male (finding) [facility] Medical Equipment Procedure Code Equipment Code Equipment Original Text Equipment Identifier Dates [id number] Start: 07-01-2022 End: 09-17-2024 USE 1 SUBCUTANEO USLY TWICE DAILY [id number] Start: 09-01-2023 USE 1 SYRINGE TW ICE DAILY [id number] Start: 04-11-2024 Goals Date Patient Goal Desired Activity /State Functional Status Date Assessment Result Facility 12-20-2024 Patient Health Quest ionnaire 2 item (PHQ-2) [Reported] [facility] 11-19-2024 Patient Health Quest ionnaire 2 item (PHQ-2) [Reported] [facility] 08-02-2024 Patient Health Quest ionnaire 2 item (PHQ-2) [Reported] [facility] 03-22-2022 Functional status Patient at Baseline [facility] Work Phone: Mental Status Date Assessment Result Facility 03-22-2022 Cognitive function Cognitive Sta tus Patient at Baseline [facility] Work Phone: Clinical Notes 07-10-2021 to 12-20-2024 ELPIDIO Oro - 12/20/2024 9:30 AM ELPIDIO Diallo - 11/19/2024 11:00 AM Kasey Pendleton MD - 10/12/2024 10:20 AM EDTPatient InstructionsAttachmentsPatient Instructions Note Date & Type Note Facility 12-20-2024 History of Present illness Narrative Images from the original note were not included. HPI Med Refill Additional comments: Carvedilol Last edited by Cecile Schaefer LPN on 12/20/2024 9:38 AM. Subjective Patient ID: Tammy Wu is a 74 y.o. male who presents for diabetes. Tammy is present today for follow up diabetes. Denies foot ulcers, hypoglycemia. Admits tingling/numbness in extremities. Does not check BS's at home. States it was constantly beeping at him that his glucose was high, so stopped checking it at home. Didn't want to waste the sensors. At his last o/v his Ozempic was increased and added Farxiga also on Novolin 70/30 and metformin. His last A1C was done on 11/19/24 and it was 11. He also has an abnormal microalbumin that he would like to discuss. He feels his sugars are improving d/t his mouth was really dry and now his mouth does not seem as dry. States he feels better. Tolerating medications well. Has noted a decreased appetite. Over the past 2 weeks, how often have you been bothered by any of the following problems? Little interest or pleasure in doing things: Not at all Feeling down, depressed, or hopeless: Not at all Patient Health Questionnaire-2 Score: 0 Current Outpatient Medications on File Prior to Visit Medication Sig Dispense Refill [DISCONTINUED] carvedilol (Coreg) 6.25 MG tablet Take 6.25 mg by mouth in the morning and 6.25 mg in the evening. Take with meals. amLODIPine (Norvasc) 10 MG tablet Take 10 mg by mouth Daily Continuous Glucose Head Screen Worker (FreeStyle Radha 3 Maryneal) device USE DIRECTED 1 each 0 Continuous Glucose Sensor (FreeStyle Radha 3 Sensor) misc Apply 1 patch topically every 14 (fourteen) days 2 each 11 cyclobenzaprine (Flexeril) 10 MG tablet Take 1 tablet (10 mg) by mouth every 8 (eight) hours if needed for muscle spasms 60 tablet 2 Farxiga 10 MG Take 1 tablet (10 mg) by mouth Daily 30 tablet 5 insulin NPH-insulin regular (NovoLIN 70/30) (70-30) 100 [...] 20 mg by mouth in the morning. semaglutide (Ozempic, 1 MG/DOSE,) 4 MG/3ML solution pen-injector Inject 1 mg under the skin 1 (one) time per week 3 mL 5 sildenafil (Viagra) 50 MG tablet TAKE 1 TABLET BY MOUTH ONCE DAILY NEEDED 30 tablet 0 spironolactone (Aldactone) 25 MG tablet Take 25 mg by mouth Daily triamterene-hydrochlorothiazide (Maxzide-25) 37.5-25 MG tablet TAKE 1 TABLET BY MOUTH ONCE DAILY IN THE MORNING 100 tablet 3 No current facility-administered medications on file prior to visit. I have reviewed and reconciled the history and medication list with the patient today. Allergies Allergen Reactions Atorvastatin Other Tetanus Toxoid, Adsorbed Other Social History Tobacco Use Smoking status: Former Current packs/day: 0.00 Average packs/day: 2.0 packs/day for 35.0 years (70.0 ttl pk-yrs) Types: Cigarettes Start date: 04/04/1964 Quit date: 2000 Years since quittin.7 Smokeless tobacco: Former Types: Snuff, Chew Quit [...] Naty Heart attack Father Samy Diabetes Father Smay Heart disease Father Samy Hypertension Father Samy Hypertension Sibling Diabetes Sibling Past Medical History: Diagnosis Date Arthritis Benign prostatic hyperplasia Carpal tunnel syndrome 09/01/2022 Diabetes mellitus, type 2 (HCC) Disc displacement 1983 Diverticulosis 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 HL (hearing loss) Hyperlipidemia Hypertension Internal hemorrhoids Mild depression 09/01/2022 Obesity 1998 Past Surgical History: Procedure Laterality Date ACHILLES TENDON SURGERY 1986 APPENDECTOMY BIOPSY Biopsy of prostate COLONOSCOPY 2014 CYSTOSCOPY 10/07/2015 CYSTOSCOPY 09/18/2012 CYSTOSCOPY 08/07/2010 HERNIA REPAIR Left JOINT REPLACEMENT 2003 LAMINECTOMY 1984,02/2014 OTHER SURGICAL HISTORY 2009 Right RCR OTHER SURGICAL HISTORY Bilateral L2-L5 Nerve Blocks 11/21/18, 05/01/2019 OTHER SURGICAL HISTORY Left L2-L5 RFA 06/12/2019, Rt L2-L5 RFA 06/19/2019 OTHER SURGICAL HISTORY 07/20/2022 Lt L4-S1 Facet Injections PARTIAL KNEE ARTHROPLASTY Left 2002 ME TOTAL HIP ARTHROPLASTY Right 10/16/2014 SPINE SURGERY 1998 US PROSTATE WITH BIOPSY 09/02/2002 Visit Vitals BP 122/78 Pulse 78 Resp 16 Ht 5' 8 Wt 285 lb SpO2 95% BMI 43.33 kg/m Smoking Status Former BSA 2.49 m Review of Systems Constitutional: Positive for appetite change (Decreased). Negative for chills, fatigue and fever. Respiratory: [...] orders for this visit: Benign essential hypertension - carvedilol (Coreg) 6.25 MG tablet; Take 1 tablet (6.25 mg) by mouth in the morning and 1 tablet (6.25 mg) in the evening. Take with meals. Patient's blood pressure is currently well controlled. Continue with current medications and I will continue to monitor. Goal BP remains less than 130/80. Type 2 diabetes mellitus with other specified complication, with long-term current use of insulin ([facility]) Has noted that he is feeling better on the current medications. Tolerating the new medications well. He will begin monitoring his glucose again regularly and follow up in one month for a recheck. Morbidly obese ([facility]) Has lost 9 pounds since his last appointment. His appetite is decreased with the Ozempic. Will continue to monitor. Microalbuminuria Continue Farxiga as prescribed. Follow up in about 4 weeks (around 01/17/2025) for Diabetes, Hypertension. documented in this encounter [facility] 11-19-2024 History of Present illness Narrative Images [...] were running 275-375 Pt did not see hand box coverer he notes he does not need to see one Pt is going to call and sched to see a REHABILITATION CASE COORDINATOR in [place] that treats his brother for diabetes and has his well controlled Does not eat breakfast, not much for lunch, and admits eats too much at dinner. Admits his partner, who is also a diabetic, she is not cooking to watch the CoPatients. Drinks 6 bottles of water a day. [...] 10 mg by mouth Daily Continuous Glucose Head Screen Worker (FreeStyle Radha 3 Maryneal) device USE DIRECTED 1 each 0 Continuous Glucose Sensor (FreeStyle Radha 3 Sensor) [facility] Apply 1 patch topically every 14 (fourteen) [...] Diabetes mellitus, type 2 (HCC) Disc displacement 1983 Diverticulosis First degree atrioventricular block 09/01/2022 He [...] Facet Injections PARTIAL KNEE ARTHROPLASTY Left 2002 ME TOTAL HIP ARTHROPLASTY Right 10/16/2014 SPINE SURGERY [...] complication, with long-term current use of insulin ([facility]) - POCT Glycated hemoglobin, total - semaglutide [...] would like to try to see the REHABILITATION CASE COORDINATOR first that his brother sees, and if [...] pt today regarding glycemic control. Morbidly obese ([facility]) Encouraged pt to work on portion control for his dinners, and to add in some sort of small protein based snacks during the day. Limit simple sugars. BMI 40.0-44.9, adult ([facility]) Patient has lost 3 pounds since his last appointment. Encouraged continued gradual weight loss. Follow up in about 4 weeks (around 12/17/2024) for Diabetes. documented in this encounter [facility] 11-14-2024 Hospital Discharge instructions Patient Education [...] your health care provider. General instructions Take yebk-qzg-mpvzihr and prescription medicines only as told by [...] provider. Document Revised: 12/08/2020 Document Reviewed: 12/08/2020 Yippy Patient Education 2023 [employer]ush[employer]. Follow Up Care 11/07/2024 10:54:53 With:PATRICE SOTELO, Rajeev John, URL Address: [address] [place] [id number] When: Unknown Comments:4 mos (new med) [facility] [place] 11-14-2024 Note Patient Education Obstetrics and Gynecology [...] health care provider. General instructions ??? Take jvhx-zkw-qezwjlv and prescription medicines only as told by [...] drink, and whe (more content not included)... [facility] 10-12-2024 History of Present illness Narrative [...] name below, I, Crys To LPN , Kimberlyibbridget attest that this documentation has been prepared [...] discussion and plan. documented in this encounter [facility] Work Phone: 10-12-2024 Instructions Crys Gil [...] be sent through Care Everywhere.Heart Healthy Diet (Bangladeshi)documented in this encounter [facility] Work Phone: 09-17-2024 History of Present [...] with meals. 180 tablet 3 Continuous Glucose Head Screen Worker (FreeStyle Radha 3 Maryneal) device USE DIRECTED 1 each 0 Continuous Glucose Sensor (FreeStyle Radha 3 Sensor) [facility] Apply 1 patch topically every 14 (fourteen) [...] Syringe U/F) 31G X 15/64 1 ML [facility] USE 1 SYRINGE TWICE DAILY 200 each [...] you have a medical power of attorney lawyer?: (Patient-Rptd) (P) Yes Who is your medical power of attorney lawyer?: (Patient-Rptd) (P) Mary Matilde Objective : BP [...] complication, with long-term current use of insulin ([facility]) - POCT Glycated hemoglobin, total - cyclobenzaprine (Flexeril) 10 MG tablet; Take 1 tablet (10 mg) by mouth every 8 (eight) hours if needed for muscle spasms - Refer for Diabetic Education Morbidly obese ([facility]) Mixed hyperlipidemia Benign essential hypertension Statin intolerance - Myalgias. Orders Placed This Encounter Procedures POCT Glycated hemoglobin, total Electronically signed by Kojo Medina MD on September 17, 2024 documented in this encounter [facility] 08-02-2024 History of Present illness Narrative [...] by mouth Daily Blood Glucose Monitoring Suppl ([employer] Verio Flex System) w/Device kit carvedilol (Coreg) [...] SYRINGE TWICE DAILY 200 each 3 Lancets (OneTouch Delica Plus [id number]) misc Daily metFORMIN (Glucophage) 500 MG tablet [...] date: 1964 Quit date: 2000 Years since quittin.3 Smokeless tobacco: Former Types: [...] 1986 APPENDECTOMY BIOPSY Biopsy of prostate COLONOSCOPY 2015 HERNIA REPAIR Left JOINT REPLACEMENT 2003 LAMINECTOMY 1984,02/2014 OTHER SURGICAL HISTORY 2009 Right RCR OTHER SURGICAL HISTORY Bilateral L2-L5 Nerve Blocks 11/21/18, 05/01/2019 OTHER SURGICAL HISTORY Left L2-L5 RFA 06/12/2019, Rt L2-L5 RFA 06/19/2019 OTHER SURGICAL HISTORY 07/20/2022 Lt L4-S1 Facet Injections PARTIAL KNEE ARTHROPLASTY Left 2002 ME TOTAL HIP ARTHROPLASTY Right 10/16/2014 SPINE SURGERY [...] every 14 (fourteen) days - Continuous Glucose Head Screen Worker (FreeStyle Radha 3 Maryneal) device; 1 Device continuously - insulin NPH-insulin [...] days Body mass index (BMI) 45.0-49.9, adult ([facility]) Follow up in about 4 weeks (around 08/30/2024) for F/U med changes, DM- A1C. documented in this encounter [facility] 07-17-2024 History of Present illness Narrative [...] limited to risks of scarring, darker or gis developer pigmentary changes, recurrence, incomplete removal and infection. [...] Visit: 1 year documented in this encounter [facility] 03-22-2024 History of Present illness Narrative [...] 100 tablet 3 Blood Glucose Monitoring Suppl ([employer] Verio Flex System) w/Device kit USE 1 [...] SYRINGE TWICE DAILY 200 each 3 Lancets (Crashlyticsuch Delica Plus [id number]) misc Daily. metFORMIN (Glucophage) 500 MG tablet Take 1 tablet (500 mg) by mouth in the morning and 1 tablet (500 mg) in the evening. Take with meals. 60 tablet 11 [employer] Verio test strip 1 each by Other [...] 1986 APPENDECTOMY BIOPSY Biopsy of prostate COLONOSCOPY 2015 HERNIA REPAIR Left JOINT REPLACEMENT 2003 LAMINECTOMY 1984,02/2014 OTHER SURGICAL HISTORY 2009 Right RCR OTHER SURGICAL HISTORY Bilateral L2-L5 Nerve Blocks 11/21/18, 05/01/2019 OTHER SURGICAL HISTORY Left L2-L5 RFA 06/12/2019, Rt L2-L5 RFA 06/19/2019 OTHER SURGICAL HISTORY 07/20/2022 Lt L4-S1 Facet Injections PARTIAL KNEE ARTHROPLASTY Left 2002 ME TOTAL HIP ARTHROPLASTY Right 10/16/2014 SPINE SURGERY [...] from [place].. documented in this encounter [facility] 02-17-2024 History of Present illness Narrative [...] 100 tablet 3 Blood Glucose Monitoring Suppl ([employer] Verio Flex System) w/Device kit USE 1 [...] SYRINGE TWICE DAILY 200 each 3 Lancets ([employer]Street Delica Plus [id number]) misc Daily. [employer] test strip 1 each by Other route [...] you have a medical power of attorney lawyer?: (Patient-Rptd) (P) Yes Who is your medical power of attorney lawyer?: (Patient-Rptd) (P) Mary Holmanost daughter Objective : BP 134/76 Pulse 70 [...] complication, with long-term current use of insulin ([facility]) - POCT Glycated hemoglobin, total - metFORMIN (Glucophage) 500 MG tablet; Take 1 tablet (500 mg) by mouth in the morning and 1 tablet (500 mg) in the evening. Take with meals. - Dulaglutide (Trulicity) 0.75 MG/0.5ML solution auto-injector; Inject 0.75 mg under the skin 1 (one) time per week Type 2 diabetes mellitus with hyperglycemia ([facility]) 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[facility]) Follow up in about 6 weeks (around 03/30/2024) for DM- A1C, F/U med changes, Perform Labwork (CMP on RTC). Orders Placed This Encounter Procedures POCT Glycated hemoglobin, total Electronically signed by Kojo Medina MD on February 17, 2024 documented in this encounter [facility] 02-01-2024 History of Present illness Narrative [...] 6 tablet 0 Blood Glucose Monitoring Suppl ([employer] Verio Flex System) w/Device kit USE 1 [...] SYRINGE TWICE DAILY 200 each 3 Lancets (Crashlyticsuch Delica Plus [id number]) misc Daily. [] methylPREDNISolone (Medrol Dospak) 4 MG tablets Follow schedule on package instructions 21 tablet 0 Crashly[employer]uch Verio test strip 1 each by Other [...] 1986 APPENDECTOMY BIOPSY Biopsy of prostate COLONOSCOPY 2015 HERNIA REPAIR Left JOINT REPLACEMENT 2003 LAMINECTOMY 1984,02/2014 OTHER SURGICAL HISTORY 2009 Right RCR OTHER SURGICAL HISTORY Bilateral L2-L5 Nerve Blocks 11/21/18, 05/01/2019 OTHER SURGICAL HISTORY Left L2-L5 RFA 06/12/2019, Rt L2-L5 RFA 06/19/2019 OTHER SURGICAL HISTORY 07/20/2022 Lt L4-S1 Facet Injections PARTIAL KNEE ARTHROPLASTY Left 2002 ME TOTAL HIP ARTHROPLASTY Right 10/16/2014 SPINE SURGERY [...] complication, with long-term current use of insulin ([facility]) - Comprehensive metabolic panel; Future - CBC; [...] understanding of these instructions. Benign essential hypertension ([facility]) - Comprehensive metabolic panel; Future - CBC; [...] follow-ups on file. documented in this encounter [facility] 01-24-2024 History of Present illness Narrative [...] 100 tablet 3 Blood Glucose Monitoring Suppl ([employer] Verio Flex System) w/Device kit USE 1 [...] SYRINGE TWICE DAILY 200 each 3 Lancets ([employer] Delica Plus [id number]) misc Daily. [employer] Verio test strip 1 each by Other [...] date: 1999 Years since quittin.8 Smokeless tobacco: Never Tobacco [...] Facet Injections PARTIAL KNEE ARTHROPLASTY Left 2002 ME TOTAL HIP ARTHROPLASTY Right 10/16/2014 Visit Vitals [...] follow-ups on file. documented in this encounter [facility] 01-13-2024 History of Present illness Narrative [...] by mouth once daily., Disp: , Rfl: Liz BCise 2 mg/0.85 mL auto-injector, Inject 1 [...] By signing my name below, Kelly Gutierrez LPN , Scribe attest that this documentation [...] discussion and plan. documented in this encounter [facility] Work Phone: 01-13-2024 Instructions Kelly Pina [...] mg DASH diet documented in this encounter [facility] Work Phone: 12-21-2023 History of Present [...] 100 tablet 3 Blood Glucose Monitoring Suppl ([employer]Street Verio Flex System) w/Device kit USE 1 [...] SUBCUTANEOUSLY TWICE DAILY 180 each 0 Lancets (Crashly[employer] Delica Plus Tficil20L) misc Daily. [employer] Verio test strip 1 each by Other [...] of prostate COLONOSCOPY 2015 HERNIA REPAIR Left LAMINECTOMY 1984,02/2014 OTHER SURGICAL HISTORY 2009 Right RCR OTHER SURGICAL HISTORY Bilateral L2-L5 Nerve Blocks 11/21/18, 05/01/2019 OTHER SURGICAL HISTORY Left L2-L5 RFA 06/12/2019, Rt L2-L5 RFA 06/19/2019 OTHER SURGICAL HISTORY 07/20/2022 Lt L4-S1 Facet Injections PARTIAL KNEE ARTHROPLASTY Left 2002 ME TOTAL HIP ARTHROPLASTY Right 10/16/2014 Visit Vitals [...] for DM- A1C. documented in this encounter [facility] 10-10-2023 History of Present illness Narrative [...] rhythm with Wenke Bach phenomenon and prolonged ME intervals. It is also possible that he [...] signing my name below, I, Kimberly Gaitan LPNibbrigdet attest that this documentation has been prepared [...] discussion and plan. documented in this encounter [facility] Work Phone: 10-10-2023 Instructions Neeta Lopez [...] instructions on exercise. documented in this encounter [facility] Work Phone: 03-24-2023 Miscellaneous Notes CARPAL TUNNEL RELEASE- LOCAL PREOPERATIVE DIAGNOSIS: RIGHT Carpal Tunnel Syndrome POSTOPERATIVE DIAGNOSIS: RIGHT Carpal Tunnel Syndrome PROCEDURE: RIGHT Open Carpal Tunnel Release (35018) SURGEON: SERA EUCEDA MD ANESTHESIA: Local. COMPLICATIONS: [...] his significant other. documented in this encounter [facility] Work Phone: 03-24-2023 Note Formatting of this n ote might be different from the original. CARPAL TUNNEL RELEASE- LOCAL PREOPERATIVE DIAGNOSIS: RIGHT Carpal Tunnel Syndrome POSTOPERATIVE DIAGNOSIS: RIGHT Carpal Tunnel Syndrome PROCEDURE: RIGHT Open Carpal Tunnel Release (82120) SURGEON: SERA EUCEDA MD ANESTHESIA: Local. COMPLICATIONS: [...] length of the case. Sera Mayen MD [facility] Work Phone: 03-24-2023 Hospital Discharge instructions [...] could happen? Long-term hand numbness or weakness Professor Computer Science weakness Loss of function in the hand [...] and wrist. More numbness in the hand Professor Computer Science is weaker documented in this encounter [facility] Work Phone: 03-24-2023 History and physical note Updated H&P Patient presents for local hand surgery. Prior notes, medication, PMH, PSH, allergies reviewed. PE CTAB RRR Abdomen soft Plan to proceed with elective surgery today All questions addressed [facility] Work Phone: 03-24-2023 History and physical note Updated H&P Patient presents for local hand surgery. Prior notes, medication, PMH, PSH, allergies reviewed. PE CTAB RRR Abdomen soft Plan to proceed with elective surgery today All questions addressed documented in this encounter [facility] Work Phone: 03-22-2023 Note Formatting of this n ote might be different from the original. Reviewed medical history and current medications. Patient is having a local procedure and will arrive with his significant other. [facility] Work Phone: 03-21-2023 History of Present [...] MD Orthopaedic Surgeon documented in this encounter [facility] Work Phone: 07-15-2022 Evaluation note Encounter [...] the MRI of the lumbar spine and unxt-te-canp with the patient and his which shows [...] Jul, BMI 45.0-49.9, adult (ICD-10 - Z68.42) [employer] Other [id number] NoteCONSULTATION CONSULTATION DATE: 07/08/2022 HISTORY: He returns [...] our patients to inform us about any pkws-voh-kmfrunr medications or herbal remedies/nutritional supplements/alternative remedies. 2. [...] treatment options with their primary care provider.[id number] Evaluation note * Encounter Date Diagnosis Assessment [...] negative findings were considered in medical decision-making. [employer] Other 2023 NotePAIN MANAGEMENT CONSULTATION CONSULTATION DATE: [...] home exercise program. He is intolerant to [place] agent. I have recommended patient a lumbosacral [...] status of his right lower extremity strength.[id number] NoteCONSULTATION CONSULTATION DATE: 05/04/2022 CHIEF COMPLAINT: Low [...] given to the patient. CC: Kojo Medina M.D.[facility]12-18-2022 History and physical note Author Y[facility] March 21, 2022 7:59pm Note Date/Time March 21, 2022 7:59pm [facility] [address] [place] [address] Hospitalist H&P Signed Patient: Tammy Wu MR#: [id number] : 1950 Acct:[id number] Age/Sex: 72 / M Adm Date: 2 Loc: Room: [address] [place] [address] Type: ADM INOo Attending Dr: Yves Garcia [...] patient describes [facility] [place] [facility] and felt short of breath so he had been concerned about his heart and is why he went to the office with Dr. Lion. The patient states that one of the problems was the [employer] sent me the wrong medications by mistake. It seems that this was irbesartan. He says that when [employer] sends you the noticed to get a [...] % (Auto) 26.9 % (.) 03/21/22 11:52 Gibson % (Auto) 11.1 % (.) 03/21/22 11:52 Eos % (Auto) 2.7 % (.) 03/21/22 11:52 Baso % (Auto) 0.6 % (.) 03/21/22 11:52 Nucleat RBC Rel Count 0.1 /100 WBC (0-0.5) 03/21/22 11:52 Neut # (Auto) 4.2 x10E3/uL (1.8-7.7) 03/21/22 11:52 Lymph # (Auto) 1.9 x10E3/uL (1.00-4.8) 03/21/22 11:52 Gibson # (Auto) 0.8 x10E3/uL (0.0-0.8) 03/21/22 11:52 [...] <Electronically signed by Yves Garcia DO> 03/21/221958 [facility] Work Phone: 1(402) 367-219304-08-2022 Hospital Discharge instructions Patient Education 07/10/2021 11:50:59 [...] urethra. Follow these instructions at home: Take zgdj-tcn-mlwyfzw and prescription medicines only as told by [...] 03/21/2006 Document Revised: 02/13/2019 Document Reviewed: 04/25/2017 [employer] Patient Education 2020 [employer]. Follow Up Care 06/12/2021 09:10:16 With:PATRICE SOTELO, Rajeev John, URL Address: [facility] [place] [id number]- When:07/11/2023 Comments:*PSA is ordered from Dr Medina [facility] consult note Author Colin [facility] March 22, 2022 12:43pm Note Date/Time March 22, 2022 12:43pm [facility] [address] [place] [address] Cardiology Consult Note Signed Patient: Tammy Wu MR#: [id number] : 1950 Acct:[id number] Age/Sex: 72 / M Adm Date: 2 Loc: Room: [address] [place] [address] Type: ADM INOo Attending Dr: Jakub Andrews [...] 1:30 PM. Documented By: Colin Lion MD 1240 Signed By: <Electronically signed by MD Colin Lion> 03/22/22 1243 [facility] Work Phone: Evaluation + Plan note No data available for this section [facility] evaluation + Plan note Future Appointments Appointment Date:02/18/2025 11:45:00 AM Scheduled Provider:Rajeev IBRAHIM MD Location:[facility] Appointment Type:URO Office Visit [facility] Noy Evaluation note* Diagnosis Onset Date Resolution Status Atypical chest pain acute [facility] Work Phone: Evaluation note* Diagnosis Onset Date Resolution Status Accelerated hypertension acu te Atypical chest pain acute Diabetes acute [facility] Work Phone: evalulrwsw note* Diagnosis Carpal tunnel syndrome of right wrist- Primary documented in this encounter [facility] Work Phone: Evaluation note* Diagnosis Carpal tunnel syndrome, right upper limb- Primary Carpal tunnel syndrome, right upper limb documented in this encounter [facility] Work Phone: Evaluation note* Diagnosis Benign essential hypertension- Primary Essential hypertension, benign Mixed hyperlipidemia BMI 45.0-49.9, adult (Multi) Sinus bradycardia Other specified cardiac dysrhythmias Former smoker Personal history of tobacco use, presenting hazards to health White coat syndrome with hypertension documented in this encounter [facility] Work Phone: Evaluation note* Diagnosis Shortness [...] lower urinary tract symptoms (LUTS) Mixed hyperlipidemia ([facility]) Mixed hyperlipidemia Body mass index (BMI) 45.0-49.9, adult ([facility]) Screening for thyroid disorder Elevated brain natriuretic peptide (BNP) level documented in this encounter [facility] HealthcareEvaluation note* Diagnosis Routine general medical examination at health care facility- Primary Routine general medical examination at a health care facility ACP (advance care planning) Other specified counseling Type 2 diabetes mellitus with other specified complication, with long-term current use of insulin ([facility]) Type 2 diabetes mellitus with hyperglycemia ([facility]) 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[facility]) documented in this encounter [facility] HealthcareEvaluation note* Diagnosis Type 2 diabetes mellitus with other specified complication, with long-term current use of insulin ([facility])- Primary Mixed hyperlipidemia ([facility]) Mixed hyperlipidemia Upper respiratory tract infection, unspecified type Type 2 diabetes mellitus with hyperglycemia ([facility]) 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[facility]) documented in this encounter [facility] HealthcareEvaluation note* Diagnosis Mixed hyperlipidemia- Primary Benign essential hypertension Essential hypertension, benign Bradycardia Other specified cardiac dysrhythmias documented in this encounter [facility] Work Phone: Evaluation note* Diagnosis Benign essential hypertension ([facility])- Primary Essential hypertension, benign Type 2 diabetes mellitus with other specified complication, with long-term current use of insulin ([facility]) documented in this encounter [facility] HealthcareEvaluation note* Diagnosis Solares angioma- Primary Actinic keratosis Seborrheic keratosis Melanocytic nevus of trunk Benign neoplasm of skin of trunk, except scrotum Lentigo simplex Other dyschromia documented in this encounter [facility] HealthcareEvaluation note* Diagnosis Type 2 diabetes mellitus with other specified complication, with long-term current use of insulin- Primary Encounter for screening for malignant neoplasm of colon OAB (overactive bladder) Tinea inguinalis Dermatophytosis of groin and perianal area Morbid (severe) obesity due to excess calories ([facility]) Body mass index (BMI) 45.0-49.9, adult ([facility]) documented in this encounter [facility] HealthcareEvaluation note* Diagnosis Routine general medical examination at health care facility- Primary Routine general medical examination at a health care facility ACP (advance care planning) Other specified counseling Type 2 diabetes mellitus with other specified complication, with long-term current use of insulin (HCC) Morbidly obese ([facility]) Morbid obesity Mixed hyperlipidemia Mixed hyperlipidemia Benign essential hypertension Essential hypertension, benign Statin intolerance documented in this encounter [facility] HealthcareEvaluation note* Diagnosis Essential (primary) hypertension- Primary Unspecified essential hypertension White coat syndrome with hypertension Sinus bradycardia Other specified cardiac dysrhythmias Junctional rhythm Other specified cardiac dysrhythmias Mixed hyperlipidemia BMI 45.0-49.9, adult (Multi) Former smoker Personal history of tobacco use, presenting hazards to health documented in this encounter [facility] Work Phone: Evaluation note* Diagnosis Benign essential hypertension- Primary Essential hypertension, benign Type 2 diabetes mellitus with other specified complication, with long-term current use of insulin (HCC) Morbidly obese ([facility]) Morbid obesity BMI 40.0-44.9, adult (CMS-HCC) documented in this encounter [facility] HealthcareEvaluation note* Diagnosis Benign essential hypertension- Primary Essential hypertension, benign Type 2 diabetes mellitus with other specified complication, with long-term current use of insulin (HCC) Morbidly obese ([facility]) Morbid obesity Microalbuminuria Proteinuria documented in this encounter [facility] HealthcareHistory and physical note Author [facility] March 21, 2022 7:59pm Note Date/Time March 21, 2022 7:59pm [facility] [address] [place] [address] Hospitalist H&P Signed Patient: Tammy Wu MR#: [id number] : 1950 Acct:[id number] Age/Sex: 72 / M Adm Date: 2 Loc: Room: 2V5734-9 Type: ADM INOo Attending Dr: Yves Garcia [...] patient describes that [facility] [place] [facility] and felt short of breath so he had been concerned about his heart and is why he went to the office with Dr. Lion. The patient states that one of the problems was the [employer] sent me the wrong medications by mistake. It seems that this was irbesartan. He says that when [employer] sends you the noticed to get a [...] mL (18 mg/3 mL) subcutaneous pen injector ([employer] 2- Jules)12 mg subcut DAILY 03/21/22 [History [...] % (Auto) 26.9 % (.) 03/21/22 11:52 Gibson % (Auto) 11.1 % (.) 03/21/22 11:52 Eos % (Auto) 2.7 % (.) 03/21/22 11:52 Baso % (Auto) 0.6 % (.) 03/21/22 11:52 Nucleat RBC Rel Count 0.1 /100 WBC (0-0.5) 03/21/22 11:52 Neut # (Auto) 4.2 x10E3/uL (1.8-7.7) 03/21/22 11:52 Lymph # (Auto) 1.9 x10E3/uL (1.00-4.8) 03/21/22 11:52 Gibson # (Auto) 0.8 x10E3/uL (0.0-0.8) 03/21/22 11:52 [...] by Yves Garcia DO> 03/21/221958 [facility] Work Phone: History general Narrative - Reported* Type Description Date Medical History hypertensive heart disease Medical History diabetes mallitus Medical History hypercholesterolemia Medical History Arthritis Medical History obesity Surgical History right hip replacement Surgical History back surgery- lamiectomy 1992 Surgical History nerve ablation 2019 Surgical History tissue scan 2014 Hospitalization History See Above [employer] Other History of Present illness Narrative* Patient [...] merits of diet exercise and weight loss. [facility] 250 DO Work Phone: History of Present illness NarrativePatient returns in follow-up of problems as noted. He is done well. Management of cardiac risk factors including his hypertension diabetes and hyperlipidemia are discussed and reviewed and control appears adequate and appropriate. I did advocate the merits of diet and weight loss and its favorable impact on diabetes and hypertension. [facility] 600 DO Work Phone: Hospital Discharge instructions Additional Instructions Monitor glucose levels as before.[facility] Work Phone: Hospital Discharge instructions No data available for this section [facility] progress note Author Jakub [facility] March 22, 2022 4:06pm Note Date/Time March 22, 2022 12:52pm [facility] [address] [place] [address] Hospitalist Progress Note Signed Patient: Tammy Wu MR#: [id number] : 1950 Acct:[id number] Age/Sex: 72 / M Adm Date: 2 Loc: Room: 3H2043-8 Type: DIS INOo Attending Dr: Jakub Andrews [...] Insuln.Pen SUBCUT 03/21/23 21:59 Not Given TID.WM.[facility] Protocol Insulin Aspart Prota 70%/Aspart 30% 65 [...] signed by Jakub Andrews MD> 03/22/22 1606 [facility] Work Phone: Progress note No data available for this section [facility] Summary Purpose Family History No Family [...] Discussion Completed Decision Maker: Patient Chief Complaint overdueDAVID SCHANK is being seen for a 6 month follow-up of.TAMMY WU is being seen for a 6 [...] ECG 12 Lead Colin Lion MD [address], [place] [address] [place] [address] Referral ID Status Reason Start Date Expiration Date V isits Requested Visits Authorized [id number] Authorized 10/10/2023 10/09/2024 1 1 Specialty Diagnoses / Procedures Referred By Contac t Referred To Contact Cardiology Diagnoses Mixed hyperlipidemia Procedures Follow Up In Cardiology Colin Lion MD [address] [facility] 2, [address] [address] Ro Pendleton MD [address], [address] [address] Referral ID Status Reason Start Date Expiration Date V isits Requested Visits Authorized [id number] Authorized 10/10/2023 10/09/2024 1 1 Specialty Diagnoses / Procedures Referred By Contac t Referred To Contact Cardiology Diagnoses Mixed hyperlipidemia Procedures Follow Up In Cardiology Colin Lion MD [address] [facility] 2, [address] [address] Bertha Whittington, PUBLIC SPEAKING PROFESSOR-CAB STARTER [address], [address] [address] Referral ID Status Reason Start Date Expiration Date V isits Requested Visits Authorized [id number] Authorized 10/10/2023 10/09/2024 1 1 Specialty Diagnoses / Procedures Referred By Contac t Referred To Contact Diagnoses Sinus bradycardia Procedures ECG 12 Lead Ro Pendleton MD [address] [place] [address] [address], [address] [address] Referral ID Status Reason Start Date Expiration Date V isits Requested Visits Authorized [id number] Authorized 01/13/2024 01/12/2025 1 1 Specialty Diagnoses / Procedures Referred By Elise olsen Referred To Contact Cardiology Diagnoses Benign essential hypertension Procedures Follow Up In Cardiology Ro Pendleton MD [address] [facility] 2, [address] [place] [address] Ro Pendleton MD [facility] [facility] 2, [address] [place] [address] Referral ID Status Reason Start Date Expiration Date V isits Requested Visits Authorized [id number] Authorized 01/13/2024 01/12/2025 1 1 Reason evaluate and treat a neena therapy Diagnosis 1 Lumbar radiculopathy (M54.16) Referral Organization [facility] urosurgery Referring Provider First Name Karime Referring Provider Last Name Rashmi Referring Provider Specialty Nurse Pract itioner Referred Organization [facility] Referred Address [address] [place], [place],[address] Referred Provider Specialty Physical The rapist Referral Priority Routine General Notes FaxingSweetie Kothari 06/25/2022 10:36:26 AM > Additional Source Comments (unrecognized sect ion and content) No Status Records FoundNo Status Records FoundNo Status Records FoundNo Status Records FoundNo Status Records FoundNo Status Records FoundNo Status Records FoundNo Status Records FoundNo Status Records FoundNo Status Records FoundNo Status Records Found INFORMATION SOURCE (unrecogn ized section and content) DATE CREATED AUTHOR 08/31/2019 [facility] DATE CREATED AUTHOR AUTHOR'S ORGANIZ ATION 06/13/2021 [facility] dical Specialist DATE CREATED AUTHOR AUTHOR'S ORGANIZ ATION 05/08/2022 [facility] DATE CREATED AUTHOR AUTHOR'S ORGANIZ ATION 08/16/2022 [facility] DATE CREATED AUTHOR AUTHOR'S ORGANIZ ATION 09/14/2022 [facility] DATE CREATED AUTHOR AUTHOR'S ORGANIZ ATION 09/14/2022 [facility] DATE CREATED AUTHOR AUTHOR'S ORGANIZ ATION 03/26/2023 [facility] DATE CREATED AUTHOR AUTHOR'S ORGANIZ ATION 10/16/2024 [facility] DATE CREATED AUTHOR AUTHOR'S ORGANIZ ATION 11/15/2024 Vicente Hectorus [facility] ical [facility] DATE CREATED AUTHOR AUTHOR'S ORGANIZ ATION 11/22/2024 [facility] DATE CREATED AUTHOR AUTHOR'S ORGANIZ ATION 12/21/2024 [facility] dical Specialists EPIC Care Teams (unrecognized sec tion and content) Team Status: Active Member Role Status Dates Kojo Medina II MD Primary Care Provider Active Tyree Husain PA-C Emergency Provider Active Yves Garcia DO Admit Provider, Attending Pr ovider Active Team Status: Active Member Role Status Dates Kojo Medina II MD Primary Care Provider Active Team Status: Inactive Member Role Status Dates Kojo Medina II MD Primary Care Provider Active Tyree Husain PA-C Emergency Provider Active Yves Garcia DO Admit Provider Active Jakub Andrews MD Attending Provider Active Colin Lion MD Other Provider Active Kelp Cutter Relationship Specialty Start Date End Date Kojo Medina MD [address] [facility] [address] [place] [address] PCP - General 09/08/22 Kelp Cutter Relationship Specialty Start Date End Date Kojo Medina MD [address] [facility] [address] [place] [address] PCP - General 09/08/22 Kelp Cutter Relationship Specialty Start Date End Date Kojo Medina MD [address] [facility] [address] [place] [address] PCP - General 09/08/22 Kelp Cutter Relationship Specialty Start Date End Date Kojo Medina MD [address] [facility] [address] [place] [address] PCP - [employer] 04/04/20 Kojo Medina MD [address] [place] [address] [place] [address] PCP - General Internal Medicine 08/18/22 Kelp Cutter Relationship Specialty Start Date End Date Kojo Medina MD [address] [place] [address] [place] [address] PCP - [employer] 04/04/20 Kojo Medina MD [address] [place] [address] [place] [address] PCP - General Internal Medicine 08/18/22 Kelp Cutter Relationship Specialty Start Date End Date Kojo Medina MD [address] [place] [address] [place] [address] PCP - [employer] 04/04/20 Kojo Medina MD [address] [place] [address] [place] [address] PCP - General Internal Medicine 08/18/22 Kelp Cutter Relationship Specialty Start Date End Date Kojo Medina MD [address] [place] [address] [place] [address] PCP - [employer] 04/04/20 Kojo Medina MD [address] [place] [address] [place] [address] PCP - General Internal Medicine 08/18/22 Kelp Cutter Relationship Specialty Start Date End Date Kojo Medina MD [address] [place] [address] [place] [address] PCP - [employer] 04/04/20 Kojo Medina MD [address] [place] [address] [place] [address] PCP - General Internal Medicine 08/18/22 Kelp Cutter Relationship Specialty Start Date End Date Kojo Medina MD [address] [place] [address] [place] [address] PCP - [employer] 04/04/20 Kojo Medina MD [address] [place] [address] [place] [address] PCP - General Internal Medicine 08/18/22 Kelp Cutter Relationship Specialty Start Date End Date Kojo Medina MD [address] [place] [address] [place] [address] PCP - [employer] 04/04/20 Kojo Medina MD [address] [place] [address] [place] [address] PCP - General Internal Medicine 08/18/22 Kelp Cutter Relationship Specialty Start Date End Date Kojo Medina MD [address] [place] [address] PCP - [employer] 04/04/20 Kojo Medina MD [address] [place] [address] PCP - General Internal Medicine 08/18/22 Kelp Cutter Relationship Specialty Start Date End Date Kojo Medina MD [address] [place] [address] PCP - [employer] 04/04/20 Kojo Medina MD [address] [place] [address] PCP - General Internal Medicine 08/18/22 Kelp Cutter Relationship Specialty Start Date End Date Kojo Medina MD [address] [place] [address] PCP - General 09/08/22 Kelp Cutter Relationship Specialty Start Date End Date Kojo Medina MD [address] [place] [address] PCP - [employer] 04/04/20 Kojo Medina MD [address] [place] [address] PCP - General Internal Medicine 08/18/22 Kelp Cutter Relationship Specialty Start Date End Date Kojo Medina MD [address] [place] [address] PCP - [employer] 04/04/20 Kojo Medina MD [address] [place] [address] PCP - General Internal Medicine 08/18/22 Kelp Cutter Relationship Specialty Start Date End Date Kojo Medina MD [address] [place] [address] PCP - [employer] 04/04/20 Kojo Medina MD [address] [place] [address] PCP - General Internal Medicine 08/18/22 Kelp Cutter Relationship Specialty Start Date End Date Kojo Medina MD [address] [place] [address] PCP - [employer] 04/04/20 Kojo Medina MD [address] [place] [address] PCP - General Internal Medicine 08/18/22 Kelp Cutter Relationship Specialty Start Date End Date Kojo Medina MD [address] [place] [address] PCP - General 09/08/22 Kelp Cutter Relationship Specialty Start Date End Date Kojo Medina MD [address] [place] [address] PCP - [employer] 04/04/20 Kojo Medina MD [address] [place] [address] PCP - General Internal Medicine 08/18/22 Kelp Cutter Relationship Specialty Start Date End Date Kojo Medina MD [address] [place] [address] PCP - [employer] 04/04/20 Kojo Medina MD [address] [place] [address] PCP - General Internal Medicine 08/18/22 Kelp Cutter Relationship Specialty Start Date End Date Kojo Medina MD [address] [place] [address] PCP - [employer] 04/04/20 Kojo Medina MD [address] [place] [address] PCP - General Internal Medicine 08/18/22 Goals (unrecognized section and content) Goals may be documented in a n alternate section REASON FOR VISIT (unrecogniz ed section and content) Reason Comments Pain New Patient VisitFin lety numbness Specialty Diagnoses / Procedures Referred By Elise olsen Referred To Contact Diagnoses Carpal tunnel syndrome, right upper limb Carpal tunnel syndrome, right upper limb [G56.01] Procedures ME NEUROPLASTY &/TRANSPOS MEDIAN NRV CARPAL TUNNE Decompression Median Nerve with Carpal Tunnel Release; weighs 3++ and is a diabetic Sera Oswald MD [address] [facility], [address] [place] [address] [address] [address] [place] [address] Referral ID Status Reason Start Date Expiration Date Visits Re quested Visits Authorized [id number] 1 1 Reason Comments Follow-up 6 month Specialty Diagnoses / Procedures Referred By Elise olsen Referred To Contact Cardiology Diagnoses Mixed hyperlipidemia Procedures Follow Up In Cardiology Colin Lion MD Retired From Practice Ro Pendleton MD [facility] [facility], [address] [address] Referral ID Status Reason Start Date Expiration Date V isits Requested Visits Authorized [id number] Authorized 10/10/2023 10/09/2024 1 1 Reason Comments Shortness of Breath Reason Comments Results Reason Comments Medicare Annual Wellness [place] [facility] [place] [facility] [place] Reason Comments Diabetes Reason Comments Annual Exam Specialty Diagnoses / Procedures Referred By Elise olsen Referred To Contact Diagnoses Bradycardia Procedures ECG 12 Lead Colin Lion MD [facility], [address] [address] Referral ID Status Reason Start Date Expiration Date V isits Requested Visits Authorized [id number] Authorized 10/10/2023 10/09/2024 1 1 Reason Comments [...] Up In Cardiology Ro Pendleton MD [facility], [address] [address] Phone: tel: fax: Ro Pendleton MD [facility], [address] [address] Phone: tel: fax: Referral ID Status Reason Start Date Expiration Date V isits Requested Visits Authorized [id number] Authorized 01/13/2024 01/12/2025 1 1 Reason Comments Med Refill Carvedilol PRN Active and Recently Administ ered Medications [...] BE BASED ON THE PRIMARY CLINICAL RECORDS. [employer] provides no warranty or guarantee of the accuracy or completeness of information in this document.
--- NOTE | 2024-12-26 11:37 | PM.CN ---
Consult Note: HPI Data of Consult Patient: known to practice within the last 3 years Requesting Physician: Joanne Guevara NP Primary Care Provider: SAHIL TOPETE Consult Narrative Reason for consult: right sided low back pain Narrative: Bradly Wu a pleasant 74 year old male with longstanding low back pain >5 years presents for evaluation of worsening right low back and hip pain. pain today 0-1/10 increasing to 3-4/10, finding benefit to prn ibuprofen prn. no longer needing lidocaine patch or flexeril, did not start baclofen. lumbar xray completed, consistent with multilevel degenerative changes. cc:: CC: Joanne Guevara NP Review of Systems ROS Musculoskeletal Reports: back pain and joint pain; Denies: extremity pain PFSH [facility] Medical History (Updated 12/05/24 @ 14:44 by Joanne Guevara NP) Inguinal hernia ?K40.90 - Unilateral inguinal hernia, without obstruction or gangrene, not specified as recurrent (ICD-10) Hearing deficit ?H91.90 - Unspecified hearing loss, unspecified ear (ICD-10) Back pain ?M54.9 - Dorsalgia, unspecified (ICD-10) Neck pain ?M54.2 - Cervicalgia (ICD-10) Osteoarthritis ?M19.90 - Unspecified osteoarthritis, unspecified site (ICD-10) Numbness and tingling ?R20.0 - Anesthesia of skin (ICD-10) ?R20.2 - Paresthesia of skin (ICD-10) Diabetes ?E11.9 - Type 2 diabetes mellitus without complications (ICD-10) Enlarged prostate ?N40.0 - Benign prostatic hyperplasia without lower urinary tract symptoms (ICD-10) Smoker ?F17.200 - Nicotine dependence, unspecified, uncomplicated (ICD-10) Sleep apnea ?G47.30 - Sleep apnea, unspecified (ICD-10) Hypertension ?I10 - Essential (primary) hypertension (ICD-10) Surgical History S/P shoulder surgery ?Z98.890 - Other specified postprocedural states (ICD-10) S/P Achilles tendon repair ?Z98.890 - Other specified postprocedural states (ICD-10) Hx of appendectomy ?Z90.49 - Acquired absence of other specified parts of digestive tract (ICD-10) H/O lumbosacral spine surgery ?Z98.890 - Other specified postprocedural states (ICD-10) History of total knee arthroplasty ?Z96.659 - Presence of unspecified artificial knee joint (ICD-10) H/O total hip arthroplasty ?Z96.649 - Presence of unspecified artificial hip joint (ICD-10) Meds Home Medications and Allergies Home Medications ?Medication ?Instructions ?Recorded ?Confirmed ?Type VICTOZA PEN DAILY 09/09/22 History amlodipine 5 mg tablet 5 mg PO DAILY 09/09/22 09/28/22 History baclofen 10 mg tablet 10 mg PO BID 09/09/22 09/28/22 History carvedilol 25 mg tablet 25 mg PO BID 09/09/22 09/28/22 History ibuprofen 800 mg tablet 800 mg PO TID 09/09/22 09/28/22 History insulin human U-100 NPH-regulr 60 unit subcut DAILY 09/09/22 09/28/22 History 70-30 mix 100 unit/mL subcutaneous susp (Novolin 70/30 U-100 Insulin) multivitamin 1 tab PO DAILY 09/09/22 09/28/22 History spironolactone 25 mg tablet 25 mg PO DAILY 09/09/22 09/28/22 History diazepam 5 mg tablet (Valium) 5 mg PO DAILY 09/28/22 09/28/22 History baclofen 10 mg tablet See Rx Instructions .Route 12/05/24 Rx .COMPLEX PRN muscle spasm #60 tabs Allergies Allergy/AdvReac Type Severity Reaction Status Date / Time No Known Drug Allergies Allergy Verified 09/28/22 08:33 Exam Constitutional Documenting provider has reviewed patient's vital signs: yes Common normals: no apparent distress, oriented x3, healthy appearing, alert and well nourished General appearance: cooperative [facility] Common normals: normocephalic, hearing grossly normal bilaterally and moist oral mucous membranes Head and scalp: normocephalic Eye Common normals: PERRL Pupil: PERRL Neck & C-Spine Common normals: full ROM General: normal visual inspection Chest Common normals: inspection of chest normal Respiratory Common normals: normal respiratory effort, no retractions and no use of accessory muscles Back & Pelvis Lumbar spine/lower back: ROM limited and straight leg raise negative bilaterally; no lumbar spinal tenderness, no paraspinal muscle tenderness and no paraspinal muscle spasm Sacroiliac joints: SI joints normal Other: right sij negative sandra(patricks), gaenslens, thigh thrust, compression test Neuro Common normals: oriented x3 Sensorium/orientation: alert Psych Common normals: mental status grossly normal, thought process normal, cooperative, affect normal, speech normal and activity/motor behavior normal Speech: normal speech Thought process: normal thought process Results Additional Findings Additional findings: If on a controlled substance or opioids, I have checked an [place] report on this patient and there are no aberrancies noted in the prescribing history.??If on a controlled substance or opioid a drug screen was completed and reviewed within the last year, and if there has not been a drug screen completed we ordered one today to monitor higher risk, state monitored pain medication use. As part of providing excellent, safe, comprehensive care, the following was completed at our patient's visit: 1. A medication reconciliation and review to ensure accurate knowledge of current/active medications, including asking our patients to inform us about any [id number] medications or herbal remedies/nutritional supplements/alternative remedies. 2. A review to specifically ensure our patients have had annual screening for screening for depression, screening for tobacco use, and screening for unhealthy alcohol use. For concerning screenings had a discussion with the patient, provided patient education, and recommended follow-up with primary care provider when appropriate. If patient noted with a risk of falling, they received education on strength, gait, and balance training to prevent future risk of falling. Portions of this note may have been carried over from the previous visit and updated as appropriate. Please note this office utilizes paper charting in addition to the electronic medical record. A list of current medications, vitals, and PMH is available there as the clinical staff outside of myself do not have access to [employer] charting during the clinic day operations. As part of providing quality comprehensive care the current medications, vitals, and PMH were reviewed in the paper chart. Assessment and Plan Assessment and Plan (1) Lumbar spondylosis: (2) Sacroiliitis: (3) Myalgia, other site: (4) Uncontrolled diabetes mellitus: Assessment and Plan: recent a1c >10, avoid steroids Plan lumbar xray reviewed with pt f/u PRN, pain well controlled at this time
== END 2024-12-26 11:03 | disposition home or self-care (01) ==
LOC: PM 11:08
PROVIDERS: PCP Internal Medicine; Visit Provider Nurse Practitioner
DX: M47.816 Spondylosis without myelopathy or radiculopathy, lumbar region (principal); M46.1 Sacroiliitis, not elsewhere classified; M79.18 Myalgia, other site; E11.8 Type 2 diabetes mellitus with unspecified complications
CPT/HCPCS: G0463